=== PATIENT | male | born 1940 | race Caucasian/White ===

== ENCOUNTER 2023-01-28 08:54 | Outpatient (CLI) | payer MEDICARE, SELFPAY ==
--- NOTE | 2023-01-28 09:15 | USCV_ITS ---
Manuel Parsons Age: 82 Gender: M : 1940 Exam Date: 01/28/2023 09:18 Ordering Phys: Deanna Bansal MD Technologist: CT [place]am [place] [facility] [place]ication: murmur BP: 130 / 80 HR: 63 Rhythm: Sinus Technical Quality: Adequate MEASUREMENTS (Male / Female) Normal Values 2D ECHO LV Diastolic Diameter PLAX 4.5 cm 4.2 - 5.9 / 3.9 - 5.3 cm LV Systolic Diameter PLAX 1.9 cm IVS Diastolic Thickness 1.1 cm 0.6 - 1.0 / 0.6 - 0.9 cm IVS Systolic Thickness 1.6 cm LVPW Diastolic Thickness 1.4 cm 0.6 - 1.0 / 0.6 - 0.9 cm LVPW Systolic Thickness 1.6 cm LVOT Diameter 2.1 cm LV Ejection Fraction 2D Teich 87.8 % LV Ejection Fraction MOD 2C 67.7 % LV Ejection Fraction 2C AL 67.7 % LA Diameter 3.6 cm LA Width 3.5 cm LA Height 6.8 cm RA Width 4.9 cm RA Height 5.0 cm Aorta at Sinotubular Diameter 3.1 cm IVC Diameter 1.0 cm M-MODE MV E Point Septal Separation 0.6 cm DOPPLER AV Peak Velocity 195.0 cm/s LVOT Peak Velocity 189.0 cm/s AV Area Cont Eq vti 3.4 cm squared AV Area Cont Eq pk 3.3 cm squared MV Peak Velocity 138.0 cm/s MV Area PHT 2.9 cm squared Mitral E to A Ratio 0.8 MV E' Velocity 50.0 cm/s Mitral E to MV E' Ratio 14.6 Mitral E to LV E' Lateral Ratio 14.8 Mitral E to LV E' Septal Ratio 14.4 TR Peak Velocity 175.5 cm/s TR Peak Gradient 12.3 mmHg Right Atrial Pressure 3.0 mmHg Pulmonary Artery Systolic Pressu 15.3 mmHg PV Peak Velocity 105.0 cm/s RV Acceleration Time 0.2 s RV Ejection Time 0.4 s RV AcT/ET 0.5 FINDINGS Left Ventricle Normal left ventricular size and systolic function, EF 70 %. Mild left ventricular hypertrophy. Grade I/IV diastolic dysfunction (abnormal relaxation filling pattern), normal to mildly elevated filling pressures. Right Ventricle The right ventricle is normal in size and function. Right Atrium The right atrium is normal in size. Left Atrium Mildly increased left atrial size. Mitral Valve No gross abnormalities noted. Aortic Valve Thickened aortic valve. Tricuspid Valve Trace to mild tricuspid valve regurgitation. Pulmonic Valve Pulmonic valve not well visualized. Pericardium Normal pericardium without effusion. Aorta Normal ascending aorta dimension. IVC Normal inferior vena cava. CONCLUSIONS Normal left ventricular size and systolic function, EF 70 %. Mild left ventricular hypertrophy. Grade I/IV diastolic dysfunction (abnormal relaxation filling pattern), normal to mildly elevated filling pressures. Mildly increased left atrial size. Thickened aortic valve. Trace to mild tricuspid valve regurgitation. There is no pericardial effusion. No similar previous studies are available for comparison Dr Aguila Craig MD FAC (Electronically Signed) Final Date: 28 January 2023 18:26 S
== END 2023-01-28 08:55 | disposition home or self-care (01) ==
LOC: RAD 09:00
PROVIDERS: PCP Internal Medicine; Visit Provider Family Medicine
DX: R01.1 Cardiac murmur, unspecified (principal); I51.7 Cardiomegaly; I38 Endocarditis, valve unspecified; I35.8 Other nonrheumatic aortic valve disorders
CPT/HCPCS: 93306

== ENCOUNTER 2024-02-02 08:23 | Outpatient (CLI) | payer MEDICARE, SELFPAY ==
--- NOTE | 2024-02-02 08:33 | USCV_ITS ---
Manuel Parsons Age: 83 Gender: M : 1940 Exam Date: 02/02/2024 08:44 Ordering Phys: Deanna Bansal MD Technologist: MATTIE [place] [facility] [place]: Edema HISTORY: Lower extremity edema. PROCEDURES: Venous duplex imaging was performed in only the left lower extremity. The following venous structures were evaluated: common femoral vein, profunda vein, proximal portion of the greater saphenous vein, superficial femoral vein, and the popliteal vein. In addition, the posterior tibial and peroneal trunk were evaluated. Serial compression, augmentation maneuvers, and spectral Doppler flow evaluation were performed. FINDINGS: No evidence of DVT seen in any vessel visualized at this time. CONCLUSIONS No evidence of left lower extremity DVT. Andrew New MD (Electronically Signed) Final Date: 02 Feb 2024 10:47 S
== END 2024-02-02 08:24 | disposition home or self-care (01) ==
LOC: RAD 08:25
PROVIDERS: PCP Internal Medicine; Visit Provider Family Medicine
DX: R60.9 Edema, unspecified (principal); R60.0 Localized edema
CPT/HCPCS: 93971

== ENCOUNTER 2024-03-22 09:15 | Outpatient (CLI) | payer MEDICARE, SELFPAY ==
--- NOTE | 2024-03-22 09:07 | USCV_ITS ---
Parsons Manuel Age: 83 Gender: M : 1940 Exam Date: 03/22/2024 09:20 Ordering Phys: Deanna Bansal MD Technologist: ALEK [place] [facility] [place]ication: AORTIC VAVLE DISORDER BP: 137 / 81 HR: 68 Rhythm: Sinus Technical Quality: Adequate MEASUREMENTS (Male / Female) Normal Values 2D ECHO LV Diastolic Diameter PLAX 4.8 cm 4.2 - 5.9 / 3.9 - 5.3 cm IVS Diastolic Thickness 1.6 cm 0.6 - 1.0 / 0.6 - 0.9 cm IVS Systolic Thickness 1.9 cm LVPW Diastolic Thickness 2.3 cm 0.6 - 1.0 / 0.6 - 0.9 cm LVPW Systolic Thickness 2.1 cm LVOT Diameter 2.0 cm LV Ejection Fraction 2D Teich 62.9 % LV Ejection Fraction MOD 2C 62.9 % LV Ejection Fraction 2C AL 64.0 % LA Diameter 5.5 cm RA Systolic Volume 4C AL 37.5 ml RA Systolic Volume 4C MOD 35.2 ml LA Sys Volume AL 53.9 cm cubed LA Sys Volume Index AL 22.0 cm cubed/m squared Aorta at Sinotubular Diameter 2.5 cm M-MODE LA Ao Ratio MM 1.5 AV Cusp Separation MM 0.9 cm DOPPLER AV Peak Velocity 216.0 cm/s LVOT Peak Velocity 187.0 cm/s AV Area Cont Eq vti 2.6 cm squared AV Area Cont Eq pk 2.8 cm squared MV Peak Velocity 140.0 cm/s MV Area PHT 2.6 cm squared Mitral E to A Ratio 1.1 TR Peak Velocity 248.0 cm/s TR Peak Gradient 24.6 mmHg TR Mean Velocity 198.0 cm/s TR Mean Gradient 16.7 mmHg TR Velocity Time Integral 79.9 cm TV Peak E Velocity 77.0 cm/s Right Atrial Pressure 3.0 mmHg Pulmonary Artery Systolic Pressu 27.6 mmHg PV Peak Velocity 103.0 cm/s RV Ejection Time 0.3 s FINDINGS Left Ventricle Normal left ventricular size, systolic function and wall thickness, with no regional wall motion abnormalities. Normal left ventricular wall t function estimated at 60% . Grade I/IV diastolic dysfunction (abnormal relaxation filling pattern), normal to mildly elevated filling pressures. Right Ventricle The right ventricle is normal in size and function. Right Atrium The right atrium is normal in size. Left Atrium The left atrium is normal in size. Mitral Valve Structurally normal mitral valve without significant stenosis or prolapse. There is no mitral regurgitation. Aortic Valve Aortic valve sclerosis. Mild aortic valve stenosis. Mild aortic valve stenosis, mean gradient 11.8 mmHg, ALESSANDRO 2.6 cm squared. Trace aortic valve regurgitation. Tricuspid Valve Structurally normal tricuspid valve without significant stenosis mild regurgitation. Pulmonary artery systolic pressure is normal. Pulmonic Valve Structurally normal pulmonic valve without significant stenosis. There is no pulmonic regurgitation. Pericardium Normal pericardium without effusion. Aorta Normal ascending aorta dimension. IVC The inferior vena cava appears normal. CONCLUSIONS 1-Normal left ventricular size, systolic function and wall thickness, with no regional wall motion abnormalities. Normal left ventricular wall t function estimated at 60% . Grade I/IV diastolic dysfunction (abnormal relaxation filling pattern), normal to mildly elevated filling pressures. 2-Aortic valve sclerosis. Mild aortic valve stenosis. Mild aortic valve stenosis, mean gradient 11.8 mmHg, ALESSANDRO 2.6 cm squared. Trace aortic valve regurgitation. 3-There is no pericardial effusion. 4-Right atrial pressure is around 5 mm of mercury. Jacobo Smith MD (Electronically Signed) Final Date: 22 March 2024 21:04 S
== END 2024-03-22 09:16 | disposition home or self-care (01) ==
PROVIDERS: PCP Internal Medicine; Visit Provider Family Medicine
DX: I35.9 Nonrheumatic aortic valve disorder, unspecified (principal); I50.30 Unspecified diastolic (congestive) heart failure; I70.0 Atherosclerosis of aorta
CPT/HCPCS: 93306

== ENCOUNTER → 2024-11-05 08:45 | Outpatient (BNVA) | payer MEDICARE, SELFPAY | PROVIDERS: PCP Internal Medicine; Visit Provider Surgery | DX: K21.9 Gastro-esophageal reflux disease without esophagitis (principal); K59.04 Chronic idiopathic constipation; Z86.0100 Personal history of colon polyps, unspecified | CPT/HCPCS: 99204 ==

== ENCOUNTER 2024-11-14 08:10 | Day surgery (SDC) | payer MEDICARE, SELFPAY ==
[2024-11-14 08:50] VITALS: BP 127/81; PULSE 114; RESP 18; TEMP 36.6; O2SAT 100; BMI 26.2
[2024-11-14] MEDS: sodium chloride 0.9% 500 ML 15 ML IV (08:56)
--- NOTE | 2024-11-14 08:59 | ANES.PREANE2 ---
Pre-Anesthetic Assessment Height/Weight: Height 1.91 m Weight 95.254 kg Temp Pulse Resp BP Pulse Ox O2 Del Method 97.9 F 114 H 18 127/81 100 Room Air 11/14/24 08:50 11/14/24 08:50 11/14/24 08:50 11/14/24 08:50 11/14/24 08:50 11/14/24 08:50 Preop Diagnosis: anemia Operation Date: 11/14/24 09:15 Proposed Procedures p EGD 12759, 88040, G0121, K21.9, Z12.11(Not Applicable) - Hermann Hathaway DO s Colonoscopy(Not Applicable) - Hermann Hathaway DO Familial anesthetic complications: none Was Beta Saw taken within 24 hours: N/A Was Clonidine taken within 24 hours: N/A Last intake: Intake Last Liquid Date 11/13/24 Last Liquid Time 22:00 Last Solid Date 11/12/24 Last Solid Time 18:00 Social No alcohol and No tobacco Exam alert, oriented x 3, clear to auscultation bilaterally and regular rate & rhythm Airway Submandibular: within normal limits Cervical ROM: within normal limits Mallampati: Class III Dentition: full History/ROS No significant history except as noted and No significant complaints Pulmonary Asthma CV/HEM Anemia None reported Hepatic None reported GI Gastroesophageal Reflux Disease Metabolic Thyroid Disease Neuropsych None reported Anesthetic Plan ASA status: 3 Anesthesia: MAC Risk of > 500 ml blood loss (7ml/kg in children): No Medications/Allergies Home Medications ?Medication ?Instructions ?Recorded ?Confirmed ?Last Taken ?Type albuterol sulfate 90 mcg/actuation 1 puff inhalation QID 11/05/24 11/12/24 Unknown History aerosol inhaler ferrous sulfate [Iron (ferrous 325 mg PO DAILY 11/05/24 11/12/24 11/11/24 History sulfate)] levothyroxine 125 mcg tablet 125 mcg PO DAILY 11/05/24 11/12/24 11/12/24 History (Levo-T) pantoprazole 40 mg tablet,delayed 40 mg PO BID 6 weeks #84 tabs 11/05/24 11/12/24 11/12/24 Rx release (Protonix) polyethylene glycol 3350 17 17 g PO DAILY #510 grams 11/05/24 11/12/24 11/12/24 Rx gram/dose oral powder (Miralax) vitamins A,C,V-rlfj-vifvxr 1 tab PO DAILY 11/05/24 11/12/24 11/11/24 History [PreserVision AREDS] Allergies Allergy/AdvReac Type Severity Reaction Status Date / Time grass pollen Allergy Unknown Verified 11/12/24 08:39 house dust Allergy Unknown Verified 11/12/24 08:39 mold Allergy Unknown Verified 11/12/24 08:39 grass oil Allergy Unknown Uncoded 11/12/24 08:39 sycamore tree Allergy Unknown Uncoded 11/12/24 08:39 Current Medications Generic Name Dose Route Start Last Admin Trade Name Freq PRN Reason Stop Dose Admin Sodium Chloride 500 mls @ 15 mls/hr 11/14/24 08:18 11/14/24 08:56 Sodium Chloride 0.9% IV 11/15/24 08:17 15 mls/hr .Q24H PRN Administration COLONOSCOPY FLUIDS PFSH Anesthesia Medical History (Updated 11/05/24 @ 09:47 by Hermann Hathaway DO) History of colon polyps Hx of echocardiogram 03/22/2024 Surgical History (Updated 11/05/24 @ 09:47 by Hermann Hathaway DO) Hx laparoscopic cholecystectomy 06/07/2013 Hx of prostatectomy Social History Smoking and tobacco/nicotine status: never used tobacco/nicotine Data Anesthesia Cardiac Studies: Echocardiogram 03/22/24
--- NOTE | 2024-11-14 09:08 | W.PM.OPSUD ---
Surgery/Procedure H&P Update DATE OF PROCEDURE: November 14, 2024 DATE H&P PERFORMED: 11/05/24 H&P UPDATE INFORMATION: I have reviewed H&P completed within last 30 days, I have examined patient prior to procedure and No changes to prior documentation PREOP DIAGNOSIS: anemia PLANNED PROCEDURE: Operation Date: 11/14/24 09:15 Proposed Procedures p EGD 74297, 30749, G0121, K21.9, Z12.11(Not Applicable) - DO shawn Mckinnon Colonoscopy(Not Applicable) - Hermann Hathaway DO
[2024-11-14 09:35] VITALS: BP 122/65; PULSE 84; RESP 18; TEMP 36.2; O2SAT 100
[2024-11-14 09:40] VITALS: BP 123/72; PULSE 84; RESP 18; O2SAT 99
[2024-11-14 09:51] VITALS: BP 135/83; PULSE 82; RESP 18; O2SAT 98
--- NOTE | 2024-11-14 10:15 | ANE.PACU2 ---
Inpatient post-anesthesia follow up: Airway intact: Yes Vital signs: Temperature 97.2 F Pulse Rate 82 Respiratory Rate 18 Blood Pressure 135/83 Pulse Oximetry 98 Oxygen Delivery Me thod Room Air Oxygen Flow Rate Fraction of Inspir ed Oxygen Hydration adequate: Yes Nausea and vomiting: No Pain level: 1 Mental status: Baseline
== END 2024-11-14 10:15 | disposition home or self-care (01) ==
PROVIDERS: PCP Internal Medicine; Visit Provider Surgery
PROC: 0DJ08ZZ Inspection of Upper Intestinal Tract, Via Natural or Artificial Opening Endoscopic (ICD-10-PCS; principal; 2024-11-14 09:15)
PROC: 0DJD8ZZ Inspection of Lower Intestinal Tract, Via Natural or Artificial Opening Endoscopic (ICD-10-PCS; CPT 45378; 2024-11-14 09:15)
DX: Z12.11 Encounter for screening for malignant neoplasm of colon (principal); D12.3 Benign neoplasm of transverse colon; R10.84 Generalized abdominal pain; K21.9 Gastro-esophageal reflux disease without esophagitis; J45.909 Unspecified asthma, uncomplicated; D64.9 Anemia, unspecified; Z79.899 Other long term (current) drug therapy; Z79.890 Hormone replacement therapy; Z91.09 Other allergy status, other than to drugs and biological substances; Z86.0100 Personal history of colon polyps, unspecified; K44.9 Diaphragmatic hernia without obstruction or gangrene; K29.70 Gastritis, unspecified, without bleeding; K22.5 Diverticulum of esophagus, acquired; K59.04 Chronic idiopathic constipation; Z90.49 Acquired absence of other specified parts of digestive tract; Z85.46 Personal history of malignant neoplasm of prostate
CPT/HCPCS: 43239; 45385; 88305; J2704; J7040

== ENCOUNTER → 2024-11-26 08:12 | Outpatient (BNVA) | payer MEDICARE, SELFPAY | PROVIDERS: PCP Internal Medicine; Visit Provider Surgery | DX: Z09 Encounter for follow-up examination after completed treatment for conditions other than malignant neoplasm (principal); R03.0 Elevated blood-pressure reading, without diagnosis of hypertension; D64.9 Anemia, unspecified; K21.9 Gastro-esophageal reflux disease without esophagitis; K59.04 Chronic idiopathic constipation; Z86.0100 Personal history of colon polyps, unspecified; K22.5 Diverticulum of esophagus, acquired | CPT/HCPCS: 99214 ==

== ENCOUNTER 2024-11-27 10:42 | Outpatient (CLI) | payer MEDICARE, SELFPAY ==
[2024-11-27 11:13] LABS: Basophils % 0.2 %; Eosinophils # 0.1 10^3/uL (0.0-0.8); Eosinophils % 2.4 %; Lymphocytes # 1.2 10^3/uL (0.8-4.8); Lymphocytes % 23.6 %; Mean Corpuscular HGB Conc 30.9 g/dL (30-55); Mean Corpuscular Hemoglobin 30.1 pg (27-33); Mean Corpuscular Volume 97.3 fl (82-101); Mean Platelet Volume 9.4 fL (7.4-10.4); Monocytes # 0.4 10^3/uL (0.2-0.9); Monocytes % 7.5 %; Neutrophils # 3.32 10^3/uL (1.8-7.7); Neutrophils % 65.7 %; Nucleated Red Blood Cells % 0 %; Platelet Count 264 10^3/cmm (157-399); Red Blood Count 2.26 10^6/uL (3.85-5.65); Red Cell Distribution Width 15.4 % (12.1-15.1); White Blood Count 5.05 10^3/uL (3.29-11.43)
[2024-11-27 11:31] LABS: Ferritin 981 ng/mL (30-400); Iron 54 ug/dL (59-158); Percent Saturation 43.5 % (20-50); Total Iron Binding Capacity 124 mcg/dl; Unsaturated Iron Binding 70 ug/dL (112-347)
== END 2024-11-27 10:43 | disposition home or self-care (01) ==
PROVIDERS: PCP Internal Medicine; Visit Provider Surgery
DX: D64.9 Anemia, unspecified (principal)
CPT/HCPCS: 36415; 82728; 83540; 83550; 85025

== ENCOUNTER 2024-12-11 11:01 | Oncology outpatient (recurring) (ONCR) | payer MEDICARE, SELFPAY ==
[2024-12-11] VITALS (9 sets, daily range): BP systolic 111–151; BP diastolic 68–81; PULSE 78–99; RESP 17–18; TEMP 36.3–36.9; O2SAT 98–99
[2024-12-11 12:11] LABS: Eosinophils # 0.1 10^3/uL (0.0-0.8); Eosinophils % 1.6 %; Lymphocytes % 22.8 %; Mean Corpuscular HGB Conc 31.4 g/dL (30-55); Mean Corpuscular Hemoglobin 31.6 pg (27-33); Mean Corpuscular Volume 100.5 fl (82-101); Mean Platelet Volume 9.5 fL (7.4-10.4); Monocytes # 0.4 10^3/uL (0.2-0.9); Monocytes % 8.5 %; Neutrophils # 2.82 10^3/uL (1.8-7.7); Neutrophils % 66.2 %; Nucleated Red Blood Cells % 0 %; Platelet Count 240 10^3/cmm (157-399); Red Blood Count 2.06 10^6/uL (3.85-5.65); Red Cell Distribution Width 15.5 % (12.1-15.1); White Blood Count 4.26 10^3/uL (3.29-11.43)
[2024-12-11 12:24] LABS: Hematocrit 20.7 % (37-53)
[2024-12-11] MEDS: acetaminophen 500 mg Tablet 1000 MG PO (12:53)
[2024-12-11] MEDS: diphenhydrAMINE 25 mg Capsule PO (12:54)
== END 2024-12-31 23:59 | disposition home or self-care (01) ==
LOC: ONCMED 11:02
PROVIDERS: PCP Family Medicine; Visit Provider Family Medicine
DX: D64.9 Anemia, unspecified (principal)
CPT/HCPCS: 36415; 36430; 85025; 86850; 86900; 86920; J9999; P9016; P9040

== ENCOUNTER 2024-12-27 08:36 | Inpatient (IN) | payer MEDICARE, SELFPAY ==
[2024-12-27] VITALS (8 sets, daily range): BP systolic 126–134; BP diastolic 61–82; PULSE 83–106; RESP 16–18; TEMP 36.4–37.1; O2SAT 92–99; BMI 26.9; BMI 24.1
[2024-12-27 10:04] LABS: Basophils % 0.3 %; Eosinophils # 0.1 10^3/uL (0.0-0.8); Eosinophils % 3.4 %; Hematocrit 25.8 % (37-53); Lymphocytes % 26.8 %; Mean Corpuscular HGB Conc 30.6 g/dL (30-55); Mean Corpuscular Hemoglobin 29.4 pg (27-33); Mean Corpuscular Volume 95.9 fl (82-101); Mean Platelet Volume 9.5 fL (7.4-10.4); Monocytes # 0.4 10^3/uL (0.2-0.9); Monocytes % 9.5 %; Neutrophils # 2.25 10^3/uL (1.8-7.7); Neutrophils % 59.2 %; Nucleated Red Blood Cells % 0 %; Platelet Count 222 10^3/cmm (157-399); Red Blood Count 2.69 10^6/uL (3.85-5.65); Red Cell Distribution Width 15.6 % (12.1-15.1)
[2024-12-27 10:17] LABS: Alanine Aminotransferase 8 U/L (0-41); Albumin Level 2.4 g/dL (3.5-5.2); Alkaline Phosphatase 79 U/L (40-130); Anion Gap 15.8 (5-19); Aspartate Amino Transferase 10 U/L (0-40); Blood Urea Nitrogen 56 mg/dL (8-23); Calcium 8.9 mg/dL (8.5-10.5); Carbon Dioxide 22 mmol/L (22-29); Chloride 102 mmol/L (98-107); Creatinine Clr Calc Pharmacy 12.0146; Globulin 9.4 g/dL (1.3-4.6); Glucose 91 mg/dL (65-115); Magnesium 1.9 mg/dL (1.7-2.3); Osmolality Calculated 295 mOsm/kg (285-295); Potassium 4.8 mmol/L (3.5-5.1); Sodium 135 mmol/L (136-145); Total Bilirubin 0.9 mg/dL (0.15-1.2); Total Protein 11.8 g/dL (6.6-8.7)
--- NOTE | 2024-12-27 11:18 | ED_ITS ---
HPI - Recheck/Abnormal Lab/Rx 2 General: Chief Complaint: Recheck/Abnormal Lab/Rx Stated Complaint: referred by [facility]/abnormal Labs Time Seen by Provider: 12/27/24 08:43 History of Present Illness: 84-year-old male presents to the emergen cy room directed here by his primary care doctor due to acute kidney injury. He had lab work done his creatinine was up to. This was an acute change for him normal creatinine was around 1. He has had some anemia issues lately workup including EGD and colonoscopy has not shown cause. He is denies any vomiting or diarrhea. No hematemesis coffee-ground emesis. Related Data Home Medications ?Medication ?Instructions ?Recorded ?Confirmed albuterol sulfate 90 mcg/actuation 1 puff inhalation Q ID PRN 11/05/24 12/29/24 aerosol inhaler Shortness Of Breath levothyroxine 125 mcg tablet 125 mcg PO DAILY 11/05/24 12/29/24 (Levo-T) ferrous sulfate 325 mg (65 mg 325 mg PO DAILY 12/29/24 12/29/24 iron) tablet polyethylene glycol 3350 17 17 g PO DAILY PRN Constipa tion 12/29/24 12/29/24 gram/dose oral powder (Miralax) vit C 250 mg-vit E 90 mg-zinc 40 1 tab PO BID 12/29/24 12/29/24 mg-copper 1 [id number] capsule (PreserVision AREDS-2) Previous Rx's ?Medication ?Instructions ?Recorded pantoprazole 40 mg tablet,delayed 40 mg PO BID 6 weeks #84 tabs 11/05/24 release (Protonix) Allergies Allergy/AdvReac Type Severity Reaction Status Date / Time grass pollen Allergy Unknown Verified 11/12/24 08:39 house dust Allergy Unknown Verified 11/12/24 08:39 mold Allergy Unknown Verified 11/12/24 08:39 grass oil Allergy Unknown Uncoded 11/12/24 08:39 sycamore tree Allergy Unknown Uncoded 11/12/24 08:39 Review of Systems 2 Const: Denies: fever(s) or chills Card: Denies: chest pain Resp: Denies: dyspnea GI: Denies: abdominal pain : Denies: dysuria, urinary frequency or urinary urgency Musc: Denies: neck pain or back pain Skin/Breast: Denies: rash PFSH ED 2 PFSH: Medical History Anemia History of colon polyps Hx of echocardiogram 03/22/2024 Surgical History History of esophagogastroduodenoscopy (EGD) History of colonoscopy Hx laparoscopic cholecystectomy 06/07/2013 Hx of prostatectomy Social History (Updated 12/27/24 @ 14:25 by Darien Matias MD) Smoking and tobacco/nicotine status: never used tobacco/nicotine Alcohol intake: never Substance/Drug Use: never Household members: spouse Physical Exam 2 Const: GENERAL APPEARANCE: cooperative ORIENTATION/CONSCIOUSNESS: Yes awake, Yes oriented to person, Yes oriented to place and Yes oriented to time HENMT: COMMON NORMALS: normocephalic, atraumatic and hearing grossly normal bilaterally HEAD & SCALP: normocephalic and atraumatic Resp: COMMON NORMALS: normal respiratory effort, No retractions, No use of accessory muscles and clear to auscultation bilaterally AUSCULTATION: clear to auscultation bilaterally Cardio: COMMON NORMALS: regular rate, regular rhythm and No murmurs present (Cardio) RATE: regular rate RHYTHM: regular rhythm GI: COMMON NORMALS: Soft to palpation and No hepatosplenomegaly present A USCULTATION: Yes normoactive bowel sounds PALPATION: Yes Soft to palpation, No Tenderness to palpation present (GI), No Guarding due to palpation present (GI) and Yes No hepatosplenomegaly present Extremity: COMMON NORMALS: normal to inspection, capillary refill normal, no clubbing, cyanosis or edema, no calf tenderness and no pedal edema Neuro: SENSORIUM/ORIENTATION: Yes oriented to person, Yes oriented to place and Yes oriented to time Skin: COMMON NORMALS: no rashes or lesions noted GENERAL SKIN EXAM: no rashes or lesions noted Course 2 Vital Signs: Vital signs: Vital Signs Temperature 97.7 F 12/29/24 11:27 Pulse Rate 78 12/29/24 11:27 Respiratory Rate 16 12/29/24 11:27 Blood Pressure 127/76 12/29/24 11:27 Pulse Oximetry 95 12/29/24 11:27 Oxygen Delivery Me thod Room Air 12/29/24 11:27 MDM - Recheck/Abnormal Lab/Rx Medical Decision Making No abdominal discomfort or pain. Bladder scan did not show any urinary retention. Urine shows no sign of infection or blood. Discussed with hospitalist will admit for anemia and acute kidney injury Lab Data 12/29/24 09:53 12/29/24 05:09 Radiology Impressions Renal Ultrasound 12/28/24 08:08 IMPRESSION: Technically difficult study due to bowel gas. 1. No hydronephrosis in either kidney. Mild cortical atrophy. 2. Evidence of medical renal disease with echogenic kidneys bilaterally. 3. Bilateral ureteral jets visualized. Laboratory Results WBC 3.59 10^3/uL (3.29-11.43) 12/28/24 05:03 RBC 2.43 10^6/uL (3.85-5.65) L 12/28/24 05:03 Hgb 7.10 g/dL (11.27-16.99) L 12/28/24 05:03 Hct 23.3 % (37-53) L 12/28/24 05:03 MCV 95.9 fl (82-101) 12/28/24 05:03 MCH 29.2 pg (27-33) 12/28/24 05:03 MCHC 30.5 g/dL (30-55) 12/28/24 05:03 RDW 15.6 % (12.1-15.1) H 12/28/24 05:03 Plt Count 209 10^3/cmm (157-399) 12/28/24 05:03 MPV 10.1 fL (7.4-10.4) 12/28/24 05:03 Neut % (Auto) 53.2 % 12/28/24 05:03 Lymph % (Auto) 33.1 % 12/28/24 05:03 [place] % (Auto) 8.9 % 12/28/24 05:03 Eos % (Auto) 3.9 % 12/28/24 05:03 Baso % (Auto) 0.3 % 12/28/24 05:03 Reticulocyte % (Auto) 0.8 % (0.5-2.0) 12/27/24 09:40 Neut # (Auto) 1.91 10^3/uL (1.8-7.7) 12/28/24 05:03 Lymph # (Auto) 1.2 10^3/uL (0.8-4.8) 12/28/24 05:03 [place] # (Auto) 0.3 10^3/uL (0.2-0.9) 12/28/24 05:03 Eos # (Auto) 0.1 10^3/uL (0.0-0.8) 12/28/24 05:03 Baso # (Auto) 0.0 10^3/uL (0.0-0.1) 12/28/24 05:03 Nucleated RBC % (auto) 0 % 12/28/24 05:03 Nucleated RBCs # 0.0 /100WBC 12/28/24 05:03 Retic Production Index 0.51 12/27/24 09:40 Sodium 136 mmol/L (136-145) 12/28/24 05:03 Potassium 4.9 mmol/L (3.5-5.1) 12/28/24 05:03 Chloride 103 mmol/L (98-107) 12/28/24 05:03 Carbon Dioxide 23 mmol/L (22-29) 12/28/24 05:03 Anion Gap 14.9 (5-19) 12/28/24 05:03 BUN 57 mg/dL (8-23) H 12/28/24 05:03 Creatinine 5.6 mg/dL (0.7-1.2) H* 12/28/24 05:03 GFR Calculation Not Reportable 12/28/24 05:03 Glucose 85 mg/dL (65-115) 12/28/24 05:03 Calculated Osmolality 297 mOsm/kg (285-295) H 12/28/24 05:03 Calcium 8.4 mg/dL (8.5-10.5) L 12/28/24 05:03 Magnesium 1.9 mg/dL (1.7-2.3) 12/27/24 09:40 Total Bilirubin 0.9 mg/dL (0.15-1.2) 12/27/24 09:40 AST 10 U/L (0-40) 12/27/24 09:40 ALT 8 U/L (0-41) 12/27/24 09:40 Alkaline Phosphatase 79 U/L (40-130) 12/27/24 09:40 Creatine Kinase 25 U/L (39-308) L 12/27/24 09:40 Creatine Kinase Cancelled 12/27/24 09:40 Total Protein 11.8 g/dL (6.6-8.7) H 12/27/24 09:40 Albumin 2.4 g/dL (3.5-5.2) L 12/27/24 09:40 Globulin 9.4 g/dL (1.3-4.6) H 12/27/24 09:40 Vitamin B12 1013 pg/mL (232-1245) 12/27/24 09:40 Folate 10.0 ng/mL (4.5-32.2) 12/27/24 09:40 TSH 1.13 uIU/mL (0.27-4.20) 12/27/24 09:40 Urine Color Yellow (Yellow) 12/27/24 19:57 Urine Appearance Clear (CLEAR) 12/27/24 19:57 Urine pH 7.0 (5-7) 12/27/24 19:57 Ur Specific Yeso 1.013 (1.005-1.030) 12/27/24 19:57 Urine Protein 2+ (Negative) A 12/27/24 19:57 Urine Glucose (UA) Negative (Normal) 12/27/24 19:57 Urine Ketones Negative (Negative) 12/27/24 19:57 Urine Blood Trace (Negative) A 12/27/24 19:57 Urine Nitrate Negative (Negative) 12/27/24 19:57 Urine Bilirubin Negative (Negative) 12/27/24 19:57 Urine Urobilinogen 1.0 mg/dL (Negative) 12/27/24 19:57 Ur Leukocyte Esterase Negative (Negative) 12/27/24 19:57 Urine RBC 0-2 /hpf (0-2) 12/27/24 19:57 Urine WBC 0-5 /hpf (0-5) 12/27/24 19:57 Ur Squamous Epith Cells 0-5 /hpf (0-5) 12/27/24 19:57 Amorphous Sediment Not Reportable 12/27/24 19:57 Urine Bacteria None seen /hpf (NONE) 12/27/24 19:57 Hyaline Casts 1.65 /lpf 12/27/24 19:57 U Random Total Protein 439 mg/dL 12/27/24 19:57 Ur Random Sodium 100 mmol/L 12/27/24 19:57 Urine Creatinine 63 mg/dL (39-259) 12/27/24 19:57 Blood Type A Negative 12/27/24 11:48 Rho(D) Type Rh negative 12/27/24 11:48 Antibody Screen Negative 12/27/24 11:48 Crossmatch See Detail 12/27/24 11:48 No radiology studies performed this visit Discharge Plan Discharge Patient Disposition: Admitted As Inpatient Admit Provider: Darien Matias Clinical Impression: MAURO (acute kidney injury), Anemia Condition: Stable Coding Level of Care Code ED [employer] Bulbs for Venancio Downey
[2024-12-27] MEDS: sodium chloride 0.9% 1,000 ML 999 ML IV (12:03)
[2024-12-27] MEDS: sodium chloride 0.9% 1,000 ML 150 ML IV (13:43)
[2024-12-27 13:49] LABS: Creatine Phosphokinase 25 U/L (39-308)
--- NOTE | 2024-12-27 14:14 | PM.HP ---
Providers/Chief Complaint Admitting Physician: Darien Matias Primary Care Provider: Deanna Bansal MD Chief Complaint: referred by Nimisha/abnormal Labs History of Present Illness Mr. Parsons, an 84 yo gentleman has a history of anemia and was sent to the hospital by his PCP Dr. Boateng due to worsening kidney function. He is also noted to have anemia and previously underwent an EGD and colonoscopy, which revealed minor gastritis but no major findings. The patient recalls a significant kidney issue approximately 10-15 years ago following gallbladder removal. He has not been following up with a kidney specialist recently. The patient denies recent dehydration, diarrhea, or vomiting. He reports a persistent urinary issue, characterized by a weak stream and constant dribbling, which may be contributing to kidney dysfunction. The patient had prostate cancer and underwent prostate removal surgery around 9921-4486, leading to urinary leakage. He denies taking NSAIDs or experiencing muscle pain but mentions muscle mass loss. The patient has experienced black stools in the past, attributed to a laxative prescribed before a colonoscopy. He denies current black stools. The patient does not drink alcohol and has a history of brief smoking at age 18. He lives with his . The patient had swelling in one leg several months ago, which resolved, and thought it might be related to heart valve leakage, though it was deemed insignificant. Review of Systems Const: Denies: fever(s), chills, body aches or malaise ENMT: Denies: throat pain, oral sores or ear or mastoid pain Card: Denies: chest pain, edema, pre-syncope or dyspnea on exertion Resp: Denies: dyspnea, productive cough, change in phlegm color or hemoptysis GI: Denies: abdominal pain, nausea, vomiting, diarrhea, constipation, hematochezia or melena : Reports: difficulty urinating and urinary hesitancy; Denies: flank pain, dysuria or hematuria Musc: Denies: back pain, joint swelling or joint redness Skin/Breast: Denies: rash or new lesions Neuro: Denies: headache(s) or confusion Medications/Allergies Home Medications ?Medication ?Instructions ?Recorded ?Confirmed ?Last Taken ?Type albuterol sulfate 90 mcg/actuation 1 puff inhalation QID 11/05/24 11/26/24 Unknown History aerosol inhaler ferrous sulfate [Iron (ferrous 325 mg PO DAILY 11/05/24 11/26/24 11/11/24 History sulfate)] levothyroxine 125 mcg tablet 125 mcg PO DAILY 11/05/24 11/26/24 11/12/24 History (Levo-T) pantoprazole 40 mg tablet,delayed 40 mg PO BID 6 weeks #84 tabs 11/05/24 11/26/24 11/12/24 Rx release (Protonix) polyethylene glycol 3350 17 17 g PO DAILY #510 grams 11/05/24 11/26/24 11/12/24 Rx gram/dose oral powder (Miralax) vitamins A,C,R-jifg-fektrf 1 tab PO DAILY 11/05/24 11/26/24 11/11/24 History [PreserVision AREDS] Allergies Allergy/AdvReac Type Severity Reaction Status Date / Time grass pollen Allergy Unknown Verified 11/12/24 08:39 house dust Allergy Unknown Verified 11/12/24 08:39 mold Allergy Unknown Verified 11/12/24 08:39 grass oil Allergy Unknown Uncoded 11/12/24 08:39 sycamore tree Allergy Unknown Uncoded 11/12/24 08:39 PFSH Acute PFSH: Medical History Anemia History of colon polyps Hx of echocardiogram 03/22/2024 Surgical History History of esophagogastroduodenoscopy (EGD) History of colonoscopy Hx laparoscopic cholecystectomy 06/07/2013 Hx of prostatectomy Social History (Updated 12/27/24 @ 14:25 by Darien Matias MD) Smoking and tobacco/nicotine status: never used tobacco/nicotine Alcohol intake: never Substance/Drug Use: never Household members: spouse Vitals/I&O/Wt Last Vital Signs Temp 97.7 F 12/27/24 13:01 Pulse 86 12/27/24 13:01 Resp 16 12/27/24 13:01 BP 133/76 12/27/24 13:01 Pulse Ox 97 12/27/24 13:01 O2 Del Method Room Air 12/27/24 13:01 12/26/24 12/27/24 12/27/24 22:59 06:59 14:59 Intake Total 1000 / 1000 Balance 1000 / 1000 Weight last 48 hrs Weight 87.679 kg Weight 97.522 kg Physical Exam Const: COMMON NORMALS: patient oriented x3 and alert GENERAL APPEARANCE: cooperative ORIENTATION/CONSCIOUSNESS: Yes awake HENMT: COMMON NORMALS: oropharynx normal Neck/C-Spine: COMMON NORMALS: no JVD Resp: COMMON NORMALS: normal respiratory effort and clear to auscultation bilaterally AUSCULTATION: clear to auscultation bilaterally Cardio: COMMON NORMALS: no JVD, regular rhythm, S1 normal heart sound present, S2 normal heart sound present and No murmurs present (Cardio) RHYTHM: regular rhythm HEART SOUNDS: S1 normal heart sound present and S2 normal heart sound present GI: COMMON NORMALS: Normal to inspection, nondistended, normoactive bowel sounds present, Soft to palpation and non-tender PALPATION: Yes Soft to palpation Extremity: COMMON NORMALS: no joint enlargement and no pedal edema Neuro: COMMON NORMALS: patient oriented x3 and moves all extremities SENSORIUM/ORIENTATION: Yes alert Skin: COMMON NORMALS: no rashes or lesions noted GENERAL SKIN EXAM: no rashes or lesions noted Data 12/27/24 09:40 12/27/24 09:40 A&P Assessment and plan (1) MAURO (acute kidney injury): Acute kidney injury, BUN up to 56, creatinine 5.6. He denies any nausea vomiting or diarrhea. Denies dehydration. Does not take NSAIDs. Unclear cause. He does state history of protracted renal dysfunction which delayed his discharge after cholecystectomy about 10-15 years ago in [place] at [facility]. He had not followed up with nephrology since then, but his renal function has been monitored by his PCP. Acute kidney injury, possibly on chronic kidney disease. Reviewed vitals, CBC, CMP, ER provider note, discussed with ER provider. Noted BUN up to 56, creatinine 5.6. He reports urinary hesitancy, dribbling for a long time. Has had prostatectomy around [id number]. Does not take NSAIDs. Has not been hypotensive. No recent dehydrating illness. Requesting kidney and bladder ultrasound. Requesting CK. Appears he may be taking pantoprazole at home. CBC with tiny amount of eosinophils, 0.1. Will hold pantoprazole for now. Obtain UA, urine sodium, urine creatinine and protein. Discussed with group dynamics instructor, appreciate consultation. (2) Anemia: Reviewed hemoglobin, platelets, prior hemoglobin. Noted hemoglobin down to 7.9. Without outward bleeding, about a month ago had some dark stools, had investigation of anemia with EGD and colonoscopy at that time. With finding of mild gastritis. Reviewed iron studies, back in November not iron deficient. Denies recent dark stools. Check Hemoccult. Check TSH, B12, folic acid. Check reticulocyte. Possible anemia of chronic disease with renal dysfunction. Additionally assess as above. Plan History of prostatectomy Urinary hesitancy: Follow-up kidney and bladder ultrasound. PDMP PDMP Reviewed: Not Reviewed Attestations Medical Necessity Statement*: Place in observation for additional assessment management of MAURO in an elderly gentleman. and High MDM includes amount and/or complexity of data reviewed/ordered [ resulted lab(s)/test(s), ordered lab(s)/test(s) and other healthcare professional discussion] as documented Diagnoses MAURO (acute kidney injury) N17.9 Anemia D64.9
[2024-12-27] MEDS: enoxaparin 30 mg/0.3 mL Syringe SUBCUT (14:44)
[2024-12-27 15:02] LABS: Hematocrit 25.6 % (37-53); Retic Production Index 0.51; Reticulocyte % 0.8 % (0.5-2.0)
[2024-12-27 15:11] LABS: Thyroid Stimulating Hormone 1.13 uIU/mL (0.27-4.20); Vitamin B12 1013 pg/mL (232-1245)
[2024-12-27 20:05] LABS: Bilirubin Urine Negative (Negative); Blood Urine Trace (Negative); Glucose Urine UA Negative (Normal); Ketones Urine Negative (Negative); Leukocyte Esterase Urine Negative (Negative); Nitrate Urine Negative (Negative); Protein Urine 2+ (Negative); Specific Gravity, Urine 1.013 (1.005-1.030); Urine Appearance Clear (CLEAR); Urine Color Yellow (Yellow)
[2024-12-27 20:07] LABS: Add Urine Microscopic? YES; Bacteria Urine None Seen /hpf; Hyaline Casts Urine 1.65 /lpf; RBC Urine 0-2 /hpf (0-2); Squamous Epithelial Cell Urine 0-5 /hpf (0-5); WBC Urine 0-5 /hpf (0-5)
[2024-12-27 20:22] LABS: Urine Creatinine 63 mg/dL (39-259); Urine Random Sodium 100 mmol/L
[2024-12-27 20:37] LABS: Urine Protein Random 439 mg/dL
--- NOTE | 2024-12-27 21:28 | PM.CONSULT ---
Providers/Reason For Consult Consulting Physician/Specialty*: kommana/Nephrology Reason for Consult*: MAURO Attending Physician: Darien Matias Primary Care Provider: Deanna Bansal MD History of Present Illness History of Present Illness Manuel Parsons is a 84 year old male 84-year-old male with hypothyroidism, asthma, chronic anemia was sent by PCP office due to abnormal labs. Patient was noted to have abnormal kidney function and was sent to the ER for further evaluation. Patient denies any nausea vomiting diarrhea. Denies any NSAID use. Initial lab data significant for hemoglobin of 7.9, creatinine is 5.6. No baseline labs available. Review of Systems Narrative: Negative Medications/Allergies Home Medications ?Medication ?Instructions ?Recorded ?Confirmed ?Last Taken ?Type albuterol sulfate 90 mcg/actuation 1 puff inhalation QID 11/05/24 11/26/24 Unknown History aerosol inhaler ferrous sulfate [Iron (ferrous 325 mg PO DAILY 11/05/24 11/26/24 11/11/24 History sulfate)] levothyroxine 125 mcg tablet 125 mcg PO DAILY 11/05/24 11/26/24 11/12/24 History (Levo-T) pantoprazole 40 mg tablet,delayed 40 mg PO BID 6 weeks #84 tabs 11/05/24 11/26/24 11/12/24 Rx release (Protonix) polyethylene glycol 3350 17 17 g PO DAILY #510 grams 11/05/24 11/26/24 11/12/24 Rx gram/dose oral powder (Miralax) vitamins A,C,D-qans-tpqmps 1 tab PO DAILY 11/05/24 11/26/24 11/11/24 History [PreserVision AREDS] Allergies Allergy/AdvReac Type Severity Reaction Status Date / Time grass pollen Allergy Unknown Verified 11/12/24 08:39 house dust Allergy Unknown Verified 11/12/24 08:39 mold Allergy Unknown Verified 11/12/24 08:39 grass oil Allergy Unknown Uncoded 11/12/24 08:39 sycamore tree Allergy Unknown Uncoded 11/12/24 08:39 Current Medications Generic Name Dose Route Start Last Admin Trade Name Freq PRN Reason Stop Dose Admin Enoxaparin Sodium 30 mg 12/27/24 14:30 12/27/24 14:44 Enoxaparin 30 Mg/0.3 Ml Syringe SUBCUT 30 mg Q24H CHUNG Administration PFSH Acute PFSH: Medical History Anemia History of colon polyps Hx of echocardiogram 03/22/2024 Surgical History History of esophagogastroduodenoscopy (EGD) History of colonoscopy Hx laparoscopic cholecystectomy 06/07/2013 Hx of prostatectomy Social History (Updated 12/27/24 @ 14:25 by Darien Matias MD) Smoking and tobacco/nicotine status: never used tobacco/nicotine Alcohol intake: never Substance/Drug Use: never Household members: spouse Vitals/I&O/Wt Last Vital Signs Temp 97.6 F 12/27/24 20:56 Pulse 100 12/27/24 20:56 Resp 17 12/27/24 20:56 BP 128/80 12/27/24 20:56 Pulse Ox 92 12/27/24 20:56 O2 Del Method Room Air 12/27/24 16:37 12/27/24 12/27/24 12/27/24 06:59 14:59 22:59 Intake Total 1000 / 1000 1000 / 2000 Balance 1000 / 1000 1000 / 2000 Weight last 48 hrs Weight 87.679 kg Weight 97.522 kg Physical Exam Narrative: Patient is awake, alert, no distress PERRLA S1-S2 regular rate and rhythm per report Lungs clear per report Abdomen soft nontender No pedal edema Data 12/27/24 09:40 12/27/24 09:40 A&P Assessment and plan (1) MAURO (acute kidney injury): Plan 1. Acute kidney injury: Baseline creatinine not available, suspect patient has underlying CKD. Likely prerenal etiology in the setting of severe anemia. UA with 2+ protein, no microscopic hematuria. Renal ultrasound pending. Urine electrolytes ordered, agree with holding PPI for now, check urine eosinophils -Obtain records from PCP office -No acute indication for dialysis -Continue IV hydration 2. Severe anemia, status posttransfusion 3. Hyponatremia: Mild , monitor 4. Hypothyroidism, on levothyroxine Patient evaluated using audiovisual cart. Time spent 40 minutes. PDMP PDMP Reviewed: Not Reviewed Coding Level of Care Code Acute Code for Chg Fwd Diagnoses MAURO (acute kidney injury) N17.9
[2024-12-28 00:16] VITALS: BP 128/74; PULSE 98; RESP 16; TEMP 36.5; O2SAT 93
[2024-12-28 03:52] VITALS: BP 126/72; PULSE 96; RESP 17; TEMP 36.5; O2SAT 93
[2024-12-28 06:06] LABS: Basophils % 0.3 %; Eosinophils # 0.1 10^3/uL (0.0-0.8); Eosinophils % 3.9 %; Hematocrit 23.3 % (37-53); Lymphocytes # 1.2 10^3/uL (0.8-4.8); Lymphocytes % 33.1 %; Mean Corpuscular HGB Conc 30.5 g/dL (30-55); Mean Corpuscular Hemoglobin 29.2 pg (27-33); Mean Corpuscular Volume 95.9 fl (82-101); Mean Platelet Volume 10.1 fL (7.4-10.4); Monocytes # 0.3 10^3/uL (0.2-0.9); Monocytes % 8.9 %; Neutrophils # 1.91 10^3/uL (1.8-7.7); Neutrophils % 53.2 %; Nucleated Red Blood Cells % 0 %; Platelet Count 209 10^3/cmm (157-399); Red Blood Count 2.43 10^6/uL (3.85-5.65); Red Cell Distribution Width 15.6 % (12.1-15.1); White Blood Count 3.59 10^3/uL (3.29-11.43)
[2024-12-28 06:26] LABS: Anion Gap 14.9 (5-19); Blood Urea Nitrogen 57 mg/dL (8-23); Calcium 8.4 mg/dL (8.5-10.5); Carbon Dioxide 23 mmol/L (22-29); Chloride 103 mmol/L (98-107); Glucose 85 mg/dL (65-115); Osmolality Calculated 297 mOsm/kg (285-295); Potassium 4.9 mmol/L (3.5-5.1); Sodium 136 mmol/L (136-145)
[2024-12-28 08:00] VITALS: BP 130/75; PULSE 76; TEMP 36.5; O2SAT 97
--- NOTE | 2024-12-28 08:08 | US_ITS ---
WS: [id number] ULTRASOUND RENAL TECHNIQUE: Ultrasound examination of both kidneys. CLINICAL INFORMATION: cr COMPARISON: None. FINDINGS: Bilateral ureteral jets are visualized. RIGHT: Echogenicity: Increased Mild cortical atrophy Hydronephrosis: None. Perinephric fluid: None. Right kidney measures: 9.6 cm x 5.8 cm x 4.7 cm. LEFT: Echogenicity: Increased Mild cortical atrophy Hydronephrosis: None. Perinephric fluid: None. Left kidney measures: 9.6 cm x 5.2 cm x 5.5 cm. Normal visualized aorta. US/US renal BI* [id number] IMPRESSION: Technically difficult study due to bowel gas. 1. No hydronephrosis in either kidney. Mild cortical atrophy. 2. Evidence of medical renal disease with echogenic kidneys bilaterally. 3. Bilateral ureteral jets visualized.
--- NOTE | 2024-12-28 08:39 | P.PN_ITS ---
Subjective 2 Subjective: no new complaints Medications: Reviewed: Yes Vitals/I&O/Wt Last Vital Signs Temp 97.7 F 12/28/24 08:00 Pulse 76 12/28/24 08:00 Resp 17 12/28/24 03:52 BP 130/75 12/28/24 08:00 Pulse Ox 97 12/28/24 08:00 O2 Del Method Room Air 12/28/24 08:00 12/27/24 12/28/24 12/28/24 22:59 06:59 14:59 Intake Total 1240 / 2240 Output Total 300 / 300 Balance 1240 / 2240 -300 / 1940 Weight last 48 hrs Weight 87.543 kg Weight 87.679 kg Weight 97.522 kg Physical Exam 2 Narrative: Patient is awake, alert, no distress PERRLA S1-S2 regular rate and rhythm per report Lungs clear per report Abdomen soft nontender No pedal edema Data 12/29/24 05:09 12/29/24 05:09 A&P Assessment and plan (1) MAURO (acute kidney injury): Plan 1. Acute kidney injury: Baseline creatinine not available, suspect patient has underlying CKD. Likely prerenal etiology in the setting of severe anemia. UA with 2+ protein, no microscopic hematuria. Renal ultrasound pending. Urine electrolytes ordered, agree with holding PPI for now, check urine eosinophils -Obtain records from PCP office -No acute indication for dialysis -Continue IV hydration 2. Severe anemia, status posttransfusion 3. Hyponatremia: Mild , monitor 4. Hypothyroidism, on levothyroxine Patient evaluated using audiovisual cart. Time spent 40 minutes. PDMP PDMP Reviewed: Not Reviewed Attestations 2 Medical Necessity Statement*: per frantx Coding Level of Care Code Acute Code for Chg Fwd Diagnoses MAURO (acute kidney injury) N17.9
[2024-12-28 12:00] VITALS: BP 119/68; PULSE 82; TEMP 36.7; O2SAT 95
[2024-12-28] MEDS: enoxaparin 30 mg/0.3 mL Syringe SUBCUT (15:41)
[2024-12-28 16:00] VITALS: BP 132/73; PULSE 86; TEMP 36.7; O2SAT 97
--- NOTE | 2024-12-28 19:39 | P.PN_ITS ---
Subjective 2 Subjective: He is doing about the same today. Denies any changes. Not for bleeding. So far no bowel movement. Vitals/I&O/Wt Last Vital Signs Temp 98.0 F 12/28/24 16:00 Pulse 86 12/28/24 16:00 Resp 17 12/28/24 03:52 BP 132/73 12/28/24 16:00 Pulse Ox 97 12/28/24 16:00 O2 Del Method Room Air 12/28/24 16:00 12/28/24 12/28/24 12/28/24 06:59 14:59 22:59 Intake Total 120 / 120 Output Total 300 / 300 Balance -300 / 1940 120 / 120 Weight last 48 hrs Weight 87.543 kg Weight 87.679 kg Weight 97.522 kg Physical Exam 2 Const: COMMON NORMALS: patient oriented x3 and alert GENERAL APPEARANCE: c ooperative ORIENTATION/CONSCIOUSNESS: Yes awake HENMT: COMMON NORMALS: oropharynx normal Neck/C-Spine: COMMON NORMALS: no JVD Resp: COMMON NORMALS: normal respiratory effort and clear to auscultation bilaterally AUSCULTATION: clear to auscultation bilaterally Cardio: COMMON NORMALS: no JVD, regular rhythm, S1 normal heart sound present, S2 normal heart sound present and No murmurs present (Cardio) RHYTHM: regular rhythm HEART SOUNDS: S1 normal heart sound present and S2 normal heart sound present GI: COMMON NORMALS: Normal to inspection, nondistended, normoactive bowel sounds present, Soft to palpation and non-tender PALPATION: Yes Soft to palpation Extremity: COMMON NORMALS: no joint enlargement and no pedal edema Neuro: COMMON NORMALS: patient oriented x3 and moves all extremities S ENSORIUM/ORIENTATION: Yes alert Skin: COMMON NORMALS: no rashes or lesions noted GENERAL SKIN EXAM: no rashes or lesions noted Data 12/28/24 05:03 12/28/24 05:03 A&P Assessment and plan (1) MAURO (acute kidney injury): Reviewed BUN, creatinine, so far without improvement despite fluid challenge. Her prostate kidney ultrasound. Reviewed nephrology note. Discussed with nursing, supportive employment case manager. Acute kidney injury, BUN up to 56, creatinine 5.6. He denies any nausea vomiting or diarrhea. Denies dehydration. Does not take NSAIDs. Unclear cause. He does state history of protracted renal dysfunction which delayed his discharge after cholecystectomy about 10-15 years ago in [place] at [facility]. He had not followed up with nephrology since then, but his renal function has been monitored by his PCP. Acute kidney injury, possibly on chronic kidney disease. Reviewed vitals, CBC, CMP, ER provider note, discussed with ER provider. Noted BUN up to 56, creatinine 5.6. He reports urinary hesitancy, dribbling for a long time. Has had prostatectomy around [id number]. Does not take NSAIDs. Has not been hypotensive. No recent dehydrating illness. Requesting kidney and bladder ultrasound. Requesting CK. Appears he may be taking pantoprazole at home. CBC with tiny amount of eosinophils, 0.1. Will hold pantoprazole for now. Obtain UA, urine sodium, urine creatinine and protein. Discussed with ornamental metal fabricator apprentice, appreciate consultation. (2) Anemia: Reviewed hemoglobin, platelets. Hemoglobin with slight further decline to 7.1 after IV hydration. Pending Hemoccult. Reviewed TSH, B12, folic acid, normal. Requested records from PCPs office. Repeat CBC. Reviewed hemoglobin, platelets, prior hemoglobin. Noted hemoglobin down to 7.9. Without outward bleeding, about a month ago had some dark stools, had investigation of anemia with EGD and colonoscopy at that time. With finding of mild gastritis. Reviewed iron studies, back in November not iron deficient. Denies recent dark stools. Possible anemia of chronic disease with renal dysfunction. Additionally assess as above. Plan History of prostatectomy Urinary hesitancy: Follow-up kidney and bladder ultrasound. PDMP PDMP Reviewed: Not Reviewed Attestations 2 Medical Necessity Statement*: Admission over 2 midnights anticipated for assessment management of acute kidney injury, anemia. Diagnoses MAURO (acute kidney injury) N17.9 Anemia D64.9
[2024-12-28 20:00] VITALS: BP 127/69; PULSE 83; RESP 18; TEMP 36.7; O2SAT 95
[2024-12-29] VITALS (13 sets, daily range): BP systolic 115–140; BP diastolic 63–78; PULSE 71–88; RESP 16–18; TEMP 36.2–36.7; O2SAT 92–97
[2024-12-29 05:28] LABS: Basophils % 0.3 %; Eosinophils # 0.1 10^3/uL (0.0-0.8); Eosinophils % 3.8 %; Lymphocytes # 1.2 10^3/uL (0.8-4.8); Lymphocytes % 34.1 %; Mean Corpuscular HGB Conc 31.4 g/dL (30-55); Mean Corpuscular Hemoglobin 29.9 pg (27-33); Mean Platelet Volume 9.6 fL (7.4-10.4); Monocytes # 0.4 10^3/uL (0.2-0.9); Monocytes % 11.8 %; Neutrophils # 1.67 10^3/uL (1.8-7.7); Neutrophils % 49.1 %; Nucleated Red Blood Cells % 0 %; Platelet Count 200 10^3/cmm (157-399); Red Blood Count 2.01 10^6/uL (3.85-5.65); Red Cell Distribution Width 15.3 % (12.1-15.1)
[2024-12-29 05:31] LABS: Hematocrit 19.1 % (37-53)
[2024-12-29 05:45] LABS: Anion Gap 12.9 (5-19); Blood Urea Nitrogen 61 mg/dL (8-23); Calcium 8.2 mg/dL (8.5-10.5); Carbon Dioxide 23 mmol/L (22-29); Chloride 102 mmol/L (98-107); Creatinine Clr Calc Pharmacy 11.9127; Glucose 88 mg/dL (65-115); Osmolality Calculated 293 mOsm/kg (285-295); Potassium 4.9 mmol/L (3.5-5.1); Sodium 133 mmol/L (136-145)
[2024-12-29 10:03] LABS: Basophils % 0.3 %; Eosinophils # 0.1 10^3/uL (0.0-0.8); Eosinophils % 3.8 %; Hematocrit 24.1 % (37-53); Lymphocytes % 30.6 %; Mean Corpuscular HGB Conc 31.5 g/dL (30-55); Mean Corpuscular Hemoglobin 29.2 pg (27-33); Mean Corpuscular Volume 92.7 fl (82-101); Mean Platelet Volume 9.3 fL (7.4-10.4); Monocytes # 0.3 10^3/uL (0.2-0.9); Monocytes % 10.8 %; Neutrophils # 1.68 10^3/uL (1.8-7.7); Neutrophils % 53.5 %; Nucleated Red Blood Cells % 0 %; Platelet Count 191 10^3/cmm (157-399); Red Cell Distribution Width 15.6 % (12.1-15.1); White Blood Count 3.14 10^3/uL (3.29-11.43)
[2024-12-29] MEDS: sodium chloride 0.9% 1,000 ML 50 ML IV (10:40)
--- NOTE | 2024-12-29 12:10 | PC.CHAP ---
Pastoral Care Encounter/Spiritual Assessment Type of Contact [X] Declined cut off saw grader visit [] Patient/Family/Request visit [] Outpatient visit [] Follow-up visit [] Physician referral [] Code/Alert [X] Routine visit [] Staff referral [] Actively dying [] Patient sleeping [] Family support [] [] Out of room [] Palliative care [] [] Receiving care in room [] Pre-surgical visit [] Trauma [] Long length of stay [] ICU visit [] Other: By Relational/Emotional Strength [] Patient feels connected with others/family/visitors/staff [] Distress [] Loneliness/isolation [] Abandonment Spirituality of Patient [] Person of Fannie [] Attends Scientology of their Fannie [] Believes in Prayer [] Reads Bible or Sikh materials [] There are Spiritual issues to be addressed Reprographics Technician Interventions [] Prayer [] Active listening [] Non-anxious presence [] Spiritual/emotional support [] Crisis/trauma care [] Spiritual counseling [] Bereavement support [] Provided bereavement packet [] Provided Bible/devotional materials [] Provided toy/stuffed animal, coloring book to patient or family member [] Provided Communion [] Anointing/[place] [] Salvation [] Completed spiritual assessment [] Other: Impact on Illness or Injury [] Angry [] Fearful [] Anxious [] Often cries [] Exhaustion [] Unable to work [] Unable to attend taoist [] Unable to walk/stand [] Unable to read [] Unable to drive [] Unable to eat/drink [] Unable to sleep [] Unable to be with family [] Patient intubated [] Other: Summary Time spent with patient
--- NOTE | 2024-12-29 13:58 | P.PN_ITS ---
Subjective 2 Subjective: no new c/o Medications: Reviewed: Yes Vitals/I&O/Wt Last Vital Signs Temp 97.7 F 12/29/24 11:27 Pulse 78 12/29/24 11:27 Resp 16 12/29/24 11:27 BP 127/76 12/29/24 11:27 Pulse Ox 95 12/29/24 11:27 O2 Del Method Room Air 12/29/24 11:27 12/28/24 12/29/24 12/29/24 22:59 06:59 14:59 Intake Total 240 / 360 0 / 360 1070 / 1070 Balance 240 / 360 0 / 360 1070 / 1070 Weight last 48 hrs Weight 87.679 kg Weight 87.543 kg Physical Exam 2 Narrative: Patient is awake, alert, no distress PERRLA S1-S2 regular rate and rhythm per report Lungs clear per report Abdomen soft nontender No pedal edema Data 12/29/24 09:53 12/29/24 05:09 A&P Assessment and plan (1) MAURO (acute kidney injury): Plan 1. Acute kidney injury: Baseline creatinine not available, suspect patient has underlying CKD. Likely prerenal etiology in the setting of severe anemia. UA with 2+ protein, no microscopic hematuria. Renal ultrasound pending. Urine electrolytes ordered, agree with holding PPI for now, check urine eosinophils -Obtain records from PCP office -No acute indication for dialysis -Continue IV hydration - cr slightly better 2. Severe anemia, status posttransfusion 3. Hyponatremia: Mild , monitor 4. Hypothyroidism, on levothyroxine Patient evaluated using audiovisual cart. Time spent 40 minutes. PDMP PDMP Reviewed: Not Reviewed Attestations 2 Medical Necessity Statement*: per [facility] Coding Level of Care Code Acute Code for Chg Fwd Diagnoses MAURO (acute kidney injury) N17.9
--- NOTE | 2024-12-29 14:51 | P.PN_ITS ---
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 cleaner, and it took months for his kidney function to return back to normal, denies any blood black stools, hemoglobin 6 this morning, no lightheadedness or dizziness, received 1 unit PRBC Vitals/I&O/Wt Last Vital Signs Temp 97.7 F 12/29/24 11:27 Pulse 78 12/29/24 11:27 Resp 16 12/29/24 11:27 BP 127/76 12/29/24 11:27 Pulse Ox 95 12/29/24 11:27 O2 Del Method Room Air 12/29/24 11:27 12/28/24 12/29/24 12/29/24 22:59 06:59 14:59 Intake Total 240 / 360 0 / 360 1070 / 1070 Balance 240 / 360 0 / 360 1070 / 1070 Weight last 48 hrs Weight 87.679 kg Weight 87.543 kg Physical Exam 2 Const: COMMON NORMALS: no acute distress and patient oriented x3 Resp: COMMON NORMALS: normal respiratory effort, No retractions, No use of accessory muscles and clear to auscultation bilaterally AUSCULTATION: clear to auscultation bilaterally Cardio: COMMON NORMALS: regular rate, regular rhythm, S1 normal heart sound present and S2 normal heart sound present RATE: regular rate RHYTHM: r egular rhythm HEART SOUNDS: S1 normal heart sound present and S2 normal heart sound present GI: COMMON NORMALS: Normal to inspection, nondistended, normoactive bowel sounds present and non-tender Extremity: COMMON NORMALS: no pedal edema Neuro: COMMON NORMALS: patient oriented x3 Psych: COMMON NORMALS: mental status grossly normal Data 12/29/24 09:53 12/29/24 05:09 A&P Assessment and plan (1) MAURO (acute kidney injury): -Renal ultrasound US/US renal BI* [id number] IMPRESSION: Technically difficult study due to bowel gas. 1. No hydronephrosis in either kidney. Mild cortical atrophy. 2. Evidence of medical renal disease with echogenic kidneys bilaterally. 3. Bilateral ureteral jets visualized. -Possibly chronic kidney disease Plan -IV fluids -Nephrology consultation (2) Anemia: -Hemoglobin 6, requiring 1 unit PRBC -History of anemia, history of recent EGD and colonoscopy, findings of mild gastritis, polyp -Monitor hemoglobin closely Plan History of prostatectomy = PDMP PDMP Reviewed: Not Reviewed Attestations 2 Medical Necessity Statement*: Patient requires hospitalization for MAURO, anemia Diagnoses MAURO (acute kidney injury) N17.9 Anemia D64.9
[2024-12-29 15:29] LABS: Erythrocyte Sedimentation Rate 32 mm/hr (0-10)
[2024-12-29 17:35] LABS: Alanine Aminotransferase 8 U/L (0-41); Albumin Level 2.2 g/dL (3.5-5.2); Alkaline Phosphatase 73 U/L (40-130); Aspartate Amino Transferase 11 U/L (0-40); Blood Urea Nitrogen 61 mg/dL (8-23); Calcium 8.2 mg/dL (8.5-10.5); Carbon Dioxide 22 mmol/L (22-29); Chloride 101 mmol/L (98-107); Creatinine Clr Calc Pharmacy 12.8657; Globulin 7.8 g/dL (1.3-4.6); Glucose 90 mg/dL (65-115); Osmolality Calculated 295 mOsm/kg (285-295); Sodium 134 mmol/L (136-145); Total Bilirubin 0.5 mg/dL (0.15-1.2)
[2024-12-30] VITALS (7 sets, daily range): BP systolic 112–148; BP diastolic 73–84; PULSE 75–97; RESP 16–19; TEMP 36.3–36.8; O2SAT 93–95
[2024-12-30] MEDS: sodium chloride 0.9% 1,000 ML 50 ML IV (05:31)
[2024-12-30 05:59] LABS: Basophils % 0.3 %; Eosinophils # 0.1 10^3/uL (0.0-0.8); Eosinophils % 3.6 %; Hematocrit 24.5 % (37-53); Lymphocytes # 1.1 10^3/uL (0.8-4.8); Lymphocytes % 29.6 %; Mean Corpuscular HGB Conc 31.4 g/dL (30-55); Mean Corpuscular Hemoglobin 29.4 pg (27-33); Mean Corpuscular Volume 93.5 fl (82-101); Mean Platelet Volume 9.8 fL (7.4-10.4); Monocytes # 0.4 10^3/uL (0.2-0.9); Monocytes % 9.7 %; Neutrophils # 2.01 10^3/uL (1.8-7.7); Neutrophils % 55.7 %; Nucleated Red Blood Cells % 0 %; Platelet Count 197 10^3/cmm (157-399); Red Blood Count 2.62 10^6/uL (3.85-5.65); Red Cell Distribution Width 15.6 % (12.1-15.1); White Blood Count 3.61 10^3/uL (3.29-11.43)
[2024-12-30 08:57] LABS: Alanine Aminotransferase 8 U/L (0-41); Albumin Level 2.3 g/dL (3.5-5.2); Alkaline Phosphatase 74 U/L (40-130); Anion Gap 13.8 (5-19); Aspartate Amino Transferase 11 U/L (0-40); Blood Urea Nitrogen 57 mg/dL (8-23); Calcium 8.4 mg/dL (8.5-10.5); Carbon Dioxide 22 mmol/L (22-29); Chloride 103 mmol/L (98-107); Creatinine Clr Calc Pharmacy 12.1401; Globulin 7.9 g/dL (1.3-4.6); Glucose 84 mg/dL (65-115); Osmolality Calculated 293 mOsm/kg (285-295); Potassium 4.8 mmol/L (3.5-5.1); Sodium 134 mmol/L (136-145); Total Bilirubin 0.5 mg/dL (0.15-1.2); Total Protein 10.2 g/dL (6.6-8.7)
--- NOTE | 2024-12-30 09:24 | P.PN_ITS ---
Subjective 2 Subjective: no new complaints Medications: Reviewed: Yes Vitals/I&O/Wt Last Vital Signs Temp 97.4 F L 12/30/24 07:46 Pulse 75 12/30/24 07:46 Resp 16 12/30/24 07:46 BP 112/77 12/30/24 07:46 Pulse Ox 95 12/30/24 07:46 O2 Del Method Room Air 12/30/24 07:46 12/29/24 12/30/24 12/30/24 22:59 06:59 14:59 Intake Total 480 / 1550 942.5 / 2492.5 480 / 480 Balance 480 / 1550 942.5 / 2492.5 480 / 480 Weight last 48 hrs Weight 87.725 kg Weight 87.679 kg Physical Exam 2 Narrative: Patient is awake, alert, no distress PERRLA S1-S2 regular rate and rhythm per report Lungs clear per report Abdomen soft nontender No pedal edema Data 12/30/24 05:17 12/30/24 05:17 A&P Assessment and plan (1) MAURO (acute kidney injury): Plan 1. Acute kidney injury: Baseline creatinine not available, suspect patient has underlying CKD. Likely prerenal etiology in the setting of severe anemia. UA with 2+ protein, no microscopic hematuria. Renal ultrasound pending. Urine electrolytes ordered, agree with holding PPI for now, check urine eosinophils -Obtain records from PCP office -No acute indication for dialysis, if renal fxn worsens , will discuss dialysis vs conservative measures -Continue IV hydration - cr stable 2. Severe anemia, status posttransfusion 3. Hyponatremia: Mild , monitor 4. Hypothyroidism, on levothyroxine Patient evaluated using audiovisual cart. Time spent 40 minutes. PDMP PDMP Reviewed: Not Reviewed Attestations 2 Medical Necessity Statement*: per medicine Coding Level of Care Code Acute Code for Chg Fwd Diagnoses MAURO (acute kidney injury) N17.9
--- NOTE | 2024-12-30 12:36 | P.PN_ITS ---
Subjective 2 Subjective: Patient was seen this morning, he is alert oriented x 3, following all commands, discussed his creatinine being 5.3, he tells me he has good urine output, hemoglobin 7.7 he does report 1 episode of dark sticky stool, Vitals/I&O/Wt Last Vital Signs Temp 97.5 F L 12/30/24 11:42 Pulse 84 12/30/24 11:42 Resp 16 12/30/24 11:42 BP 115/73 12/30/24 11:42 Pulse Ox 94 12/30/24 11:42 O2 Del Method Room Air 12/30/24 11:42 12/29/24 12/30/24 12/30/24 22:59 06:59 14:59 Intake Total 480 / 1550 942.5 / 2492.5 480 / 480 Balance 480 / 1550 942.5 / 2492.5 480 / 480 Weight last 48 hrs Weight 87.725 kg Weight 87.679 kg Physical Exam 2 Const: COMMON NORMALS: no acute distress and patient oriented x3 Resp: COMMON NORMALS: normal respiratory effort, No retractions, No use of accessory muscles and clear to auscultation bilaterally AUSCULTATION: clear to auscultation bilaterally Cardio: COMMON NORMALS: regular rate, regular rhythm, S1 normal heart sound present and S2 normal heart sound present RATE: regular rate RHYTHM: r egular rhythm HEART SOUNDS: S1 normal heart sound present and S2 normal heart sound present GI: COMMON NORMALS: Normal to inspection, nondistended, normoactive bowel sounds present and non-tender Extremity: COMMON NORMALS: no pedal edema Neuro: COMMON NORMALS: patient oriented x3 Psych: COMMON NORMALS: mental status grossly normal Data 12/30/24 05:17 12/30/24 05:17 A&P Assessment and plan (1) MAURO (acute kidney injury): -Renal ultrasound US/US renal BI* [id number] IMPRESSION: Technically difficult study due to bowel gas. 1. No hydronephrosis in either kidney. Mild cortical atrophy. 2. Evidence of medical renal disease with echogenic kidneys bilaterally. 3. Bilateral ureteral jets visualized. -Possibly chronic kidney disease Plan -IV fluids -Nephrology consultation (2) Anemia: -Hemoglobin 6, requiring 1 unit PRBC -Hemoglobin now 7.7 recheck this afternoon -History of anemia, history of recent EGD and colonoscopy, findings of mild gastritis, polyp -Off Protonix due to concerns for MAURO -Add Carafate -Ordered lymphoma, leukemia panel -Hemoccult stool -Monitor hemoglobin closely Plan Continue IV fluids, recheck CBC and BMP this afternoon, will have patient ambulate PDMP PDMP Reviewed: Not Reviewed Attestations 2 Medical Necessity Statement*: Patient requires hospitalization for MAURO, anemia Diagnoses MAURO (acute kidney injury) N17.9 Anemia D64.9
[2024-12-30] MEDS: sucralfate 1 gm/10 mL Oral Liq UDC PO ×2 (15:10→20:47)
[2024-12-30 16:34] LABS: Basophils % 0.3 %; Eosinophils # 0.1 10^3/uL (0.0-0.8); Eosinophils % 2.6 %; Hematocrit 22.5 % (37-53); Lymphocytes # 1.1 10^3/uL (0.8-4.8); Lymphocytes % 27.3 %; Mean Corpuscular Volume 93.8 fl (82-101); Mean Platelet Volume 9.7 fL (7.4-10.4); Monocytes # 0.4 10^3/uL (0.2-0.9); Monocytes % 9.4 %; Neutrophils # 2.33 10^3/uL (1.8-7.7); Neutrophils % 59.4 %; Nucleated Red Blood Cells % 0 %; Platelet Count 177 10^3/cmm (157-399); Red Cell Distribution Width 15.3 % (12.1-15.1); White Blood Count 3.92 10^3/uL (3.29-11.43)
[2024-12-30 16:52] LABS: Anion Gap 13.9 (5-19); Blood Urea Nitrogen 62 mg/dL (8-23); Calcium 8.1 mg/dL (8.5-10.5); Carbon Dioxide 22 mmol/L (22-29); Chloride 99 mmol/L (98-107); Creatinine Clr Calc Pharmacy 13.6899; Glucose 98 mg/dL (65-115); Osmolality Calculated 288 mOsm/kg (285-295); Potassium 4.9 mmol/L (3.5-5.1); Sodium 130 mmol/L (136-145)
[2024-12-30] MEDS: sodium chloride 0.9% 1,000 ML 75 ML IV (20:49)
[2024-12-31] MEDS: sucralfate 1 gm/10 mL Oral Liq UDC PO ×4 (02:58→20:42)
[2024-12-31 04:00] VITALS: BP 124/77; PULSE 79; RESP 19; TEMP 36.4; O2SAT 96
[2024-12-31 04:04] LABS: Eosinophils # 0.1 10^3/uL (0.0-0.8); Eosinophils % 3.1 %; Hematocrit 23.9 % (37-53); Lymphocytes % 26.9 %; Mean Corpuscular HGB Conc 31.4 g/dL (30-55); Mean Corpuscular Hemoglobin 30.2 pg (27-33); Mean Corpuscular Volume 96.4 fl (82-101); Mean Platelet Volume 9.7 fL (7.4-10.4); Monocytes # 0.4 10^3/uL (0.2-0.9); Monocytes % 10.7 %; Neutrophils # 2.24 10^3/uL (1.8-7.7); Neutrophils % 58.5 %; Nucleated Red Blood Cells % 0 %; Platelet Count 167 10^3/cmm (157-399); Red Blood Count 2.48 10^6/uL (3.85-5.65); Red Cell Distribution Width 15.4 % (12.1-15.1); White Blood Count 3.83 10^3/uL (3.29-11.43)
[2024-12-31 04:25] LABS: Alanine Aminotransferase 9 U/L (0-41); Albumin Level 2.2 g/dL (3.5-5.2); Alkaline Phosphatase 71 U/L (40-130); Anion Gap 14.9 (5-19); Aspartate Amino Transferase 11 U/L (0-40); Blood Urea Nitrogen 56 mg/dL (8-23); Calcium 8.2 mg/dL (8.5-10.5); Carbon Dioxide 21 mmol/L (22-29); Chloride 103 mmol/L (98-107); Creatinine Clr Calc Pharmacy 12.9583; Globulin 7.5 g/dL (1.3-4.6); Glucose 91 mg/dL (65-115); Osmolality Calculated 293 mOsm/kg (285-295); Potassium 4.9 mmol/L (3.5-5.1); Sodium 134 mmol/L (136-145); Total Bilirubin 0.4 mg/dL (0.15-1.2); Total Protein 9.7 g/dL (6.6-8.7)
[2024-12-31 07:33] VITALS: BP 131/72; PULSE 73; RESP 17; TEMP 36.4; O2SAT 96
[2024-12-31] MEDS: famotidine 20 mg/2 mL INJ IVP ×2 (08:53→20:42)
[2024-12-31] MEDS: sodium chloride 0.9% 1,000 ML 75 ML IV ×2 (09:59→23:35)
--- NOTE | 2024-12-31 10:48 | P.PN_ITS ---
Subjective 2 Subjective: no new complaints Medications: Reviewed: Yes Vitals/I&O/Wt Last Vital Signs Temp 97.5 F L 12/31/24 07:33 Pulse 73 12/31/24 07:33 Resp 17 12/31/24 07:33 BP 131/72 12/31/24 07:33 Pulse Ox 96 12/31/24 07:33 O2 Del Method Room Air 12/31/24 07:33 12/30/24 12/31/24 12/31/24 22:59 06:59 14:59 Intake Total 1215.833 / 2200.000 1223.5 / 1223.5 Balance 1215.833 / 2200.000 1223.5 / 1223.5 Weight last 48 hrs Weight 89.222 kg Weight 87.725 kg Physical Exam 2 Narrative: Patient is awake, alert, no distress PERRLA S1-S2 regular rate and rhythm per report Lungs clear per report Abdomen soft nontender No pedal edema Data 12/31/24 03:25 12/31/24 03:25 Micro: Microbiology 12/29/24 17:25 Occult Blood (FIT) - Final Stool - Stool Aspirate 12/30/24 17:25 Occult Blood (FIT) - Final Stool Routine Collection A&P Assessment and plan (1) MAURO (acute kidney injury): Plan 1. Acute kidney injury: Baseline creatinine not available, suspect patient has underlying CKD. Likely prerenal etiology in the setting of severe anemia. UA with 2+ protein, no microscopic hematuria. Renal ultrasound pending. Urine electrolytes ordered, agree with holding PPI for now, check urine eosinophils -Obtain records from PCP office -No acute indication for dialysis, if renal fxn worsens , will discuss dialysis vs conservative measures -Continue IV hydration, Cr stable 2. Severe anemia, status posttransfusion 3. Hyponatremia: Mild , monitor 4. Hypothyroidism, on levothyroxine Patient evaluated using audiovisual cart. Time spent 40 minutes. PDMP PDMP Reviewed: Not Reviewed Attestations 2 Medical Necessity Statement*: per [facility] Coding Level of Care Code Acute Code for Chg Fwd Diagnoses MAURO (acute kidney injury) N17.9
[2024-12-31 11:40] VITALS: BP 131/70; PULSE 74; RESP 16; TEMP 36.5; O2SAT 96
[2024-12-31 13:45] LABS: CENTROMERE B ANTIBODY <1.0 NEG AI (<1.0 NEG); JO-1 ANTIBODY <1.0 NEG AI (<1.0 NEG); RNP ANTIBODY <1.0 NEG AI (<1.0 NEG); SCL-70 ANTIBODY <1.0 NEG AI (<1.0 NEG); SJOGREN'S ANTIBODY (SS-A) <1.0 NEG AI (<1.0 NEG); SM ANTIBODY <1.0 NEG AI (<1.0 NEG); SS-B <1.0 NEG AI (<1.0 NEG)
[2024-12-31 14:43] LABS: Basophils % 0.3 %; Eosinophils # 0.1 10^3/uL (0.0-0.8); Eosinophils % 2.8 %; Hematocrit 24.7 % (37-53); Lymphocytes # 1.1 10^3/uL (0.8-4.8); Lymphocytes % 26.8 %; Mean Corpuscular HGB Conc 31.2 g/dL (30-55); Mean Corpuscular Hemoglobin 29.5 pg (27-33); Mean Corpuscular Volume 94.6 fl (82-101); Mean Platelet Volume 9.4 fL (7.4-10.4); Monocytes # 0.4 10^3/uL (0.2-0.9); Monocytes % 9.9 %; Neutrophils # 2.33 10^3/uL (1.8-7.7); Neutrophils % 59.4 %; Nucleated Red Blood Cells % 0 %; Platelet Count 177 10^3/cmm (157-399); Red Blood Count 2.61 10^6/uL (3.85-5.65); Red Cell Distribution Width 15.3 % (12.1-15.1); White Blood Count 3.92 10^3/uL (3.29-11.43)
[2024-12-31 15:54] LABS: COMPLEMENT COMPONENT C3C 95 mg/dL; COMPLEMENT COMPONENT C4C 13 mg/dL; COMPLEMENT, TOTAL (CH50) >60 U/mL (31-60)
[2024-12-31 15:58] VITALS: BP 135/75; PULSE 75; RESP 16; TEMP 36.5; O2SAT 90
--- NOTE | 2024-12-31 16:41 | P.PN_ITS ---
Subjective 2 Subjective: Patient was seen this morning, he is alert awake, following all commands, no acute events overnight, he is Hemoccult stool was positive yesterday, but denies any bloody or black stools yesterday or this morning, no lightheadedness, dizziness, patient's is at bedside we did detailed discussion with her about patient's acute renal failure, acute anemia, Vitals/I&O/Wt Last Vital Signs Temp 97.7 F 12/31/24 15:58 Pulse 75 12/31/24 15:58 Resp 16 12/31/24 15:58 BP 135/75 12/31/24 15:58 Pulse Ox 90 12/31/24 15:58 O2 Del Method Room Air 12/31/24 15:58 12/31/24 12/31/24 12/31/24 06:59 14:59 22:59 Intake Total 1459.5 / 1459.5 Balance 1459.5 / 1459.5 Weight last 48 hrs Weight 89.222 kg Weight 87.725 kg Physical Exam 2 Const: COMMON NORMALS: no acute distress and patient oriented x3 Resp: COMMON NORMALS: normal respiratory effort, No retractions, No use of accessory muscles and clear to auscultation bilaterally AUSCULTATION: clear to auscultation bilaterally Cardio: COMMON NORMALS: regular rate, regular rhythm, S1 normal heart sound present and S2 normal heart sound present RATE: regular rate RHYTHM: r egular rhythm HEART SOUNDS: S1 normal heart sound present and S2 normal heart sound present GI: COMMON NORMALS: Normal to inspection, nondistended, normoactive bowel sounds present and non-tender Extremity: COMMON NORMALS: no pedal edema Neuro: COMMON NORMALS: patient oriented x3 Psych: COMMON NORMALS: mental status grossly normal Data 12/31/24 14:30 12/31/24 03:25 Micro: Microbiology 12/29/24 17:25 Occult Blood (FIT) - Final Stool - Stool Aspirate 12/30/24 17:25 Occult Blood (FIT) - Final Stool Routine Collection A&P Assessment and plan (1) MAURO (acute kidney injury): -Renal ultrasound US/US renal BI* [id number] IMPRESSION: Technically difficult study due to bowel gas. 1. No hydronephrosis in either kidney. Mild cortical atrophy. 2. Evidence of medical renal disease with echogenic kidneys bilaterally. 3. Bilateral ureteral jets visualized. -Possibly chronic kidney disease -Potentially adverse reaction to pantoprazole? As this is the only new medication patient has been on -Continues to put out a good amount of urine -No significant electrolyte abnormalities Plan -IV fluids -Nephrology consultation (2) Anemia: -Hemoglobin 6, requiring 1 unit PRBC -Hemoglobin now 7.7 -History of anemia, history of recent EGD and colonoscopy, findings of mild gastritis, polyp -Off Protonix due to concerns for MAURO -Add Carafate, Carafate -Ordered lymphoma, leukemia panel, LDH, reticulocyte count -Hemoccult stool positive -Monitor hemoglobin closely Plan Continue IV fluids, recheck CBC and BMP this afternoon, will have patient ambulate PDMP PDMP Reviewed: Not Reviewed Attestations 2 Medical Necessity Statement*: Patient requires hospitalization for acute renal failure, acute anemia Diagnoses MAURO (acute kidney injury) N17.9 Anemia D64.9
[2024-12-31 17:06] LABS: LAB Peripheral Smear Sent for Review
[2024-12-31 17:08] LABS: Lactate Dehydrogenase 116 U/L (135-225)
[2024-12-31 20:00] VITALS: BP 125/72; PULSE 87; RESP 18; TEMP 36.7; O2SAT 94
[2025-01-01 00:25] VITALS: BP 131/75; PULSE 74; RESP 18; TEMP 36.8; O2SAT 98
[2025-01-01] MEDS: sucralfate 1 gm/10 mL Oral Liq UDC PO ×2 (03:30→09:14)
[2025-01-01 04:48] VITALS: BP 128/78; PULSE 79; RESP 18; TEMP 36.7; O2SAT 97
[2025-01-01 05:32] LABS: Basophils % 0.4 %; Eosinophils # 0.1 10^3/uL (0.0-0.8); Eosinophils % 2.9 %; Hematocrit 25.9 % (37-53); Lymphocytes # 1.6 10^3/uL (0.8-4.8); Lymphocytes % 33.4 %; Mean Corpuscular HGB Conc 31.7 g/dL (30-55); Mean Corpuscular Hemoglobin 29.9 pg (27-33); Mean Corpuscular Volume 94.5 fl (82-101); Mean Platelet Volume 9.6 fL (7.4-10.4); Monocytes # 0.4 10^3/uL (0.2-0.9); Monocytes % 8.6 %; Neutrophils # 2.63 10^3/uL (1.8-7.7); Neutrophils % 53.5 %; Nucleated Red Blood Cells % 0 %; Platelet Count 210 10^3/cmm (157-399); Red Blood Count 2.74 10^6/uL (3.85-5.65); Red Cell Distribution Width 15.5 % (12.1-15.1); White Blood Count 4.91 10^3/uL (3.29-11.43)
[2025-01-01 05:52] LABS: Alanine Aminotransferase 9 U/L (0-41); Albumin Level 2.5 g/dL (3.5-5.2); Alkaline Phosphatase 78 U/L (40-130); Anion Gap 13.1 (5-19); Aspartate Amino Transferase 13 U/L (0-40); Blood Urea Nitrogen 59 mg/dL (8-23); Calcium 8.6 mg/dL (8.5-10.5); Carbon Dioxide 22 mmol/L (22-29); Chloride 103 mmol/L (98-107); Creatinine Clr Calc Pharmacy 13.2228; Globulin 8.5 g/dL (1.3-4.6); Glucose 83 mg/dL (65-115); Osmolality Calculated 292 mOsm/kg (285-295); Potassium 5.1 mmol/L (3.5-5.1); Sodium 133 mmol/L (136-145); Total Bilirubin 0.5 mg/dL (0.15-1.2)
--- NOTE | 2025-01-01 06:50 | P.PN_ITS ---
Subjective 2 Subjective: no new c/o Medications: Reviewed: Yes Vitals/I&O/Wt Last Vital Signs Temp 97.5 F L 01/01/25 15:07 Pulse 78 01/01/25 15:07 Resp 17 01/01/25 15:07 BP 148/73 01/01/25 15:07 Pulse Ox 95 01/01/25 15:07 O2 Del Method Room Air 01/01/25 11:19 Physical Exam 2 Narrative: Patient is awake, alert, no distress PERRLA S1-S2 regular rate and rhythm per report Lungs clear per report Abdomen soft nontender No pedal edema Data 01/01/25 04:57 01/01/25 04:57 A&P Assessment and plan (1) MAURO (acute kidney injury): Plan 1. Acute kidney injury: Baseline creatinine not available, suspect patient has underlying CKD. Likely prerenal etiology in the setting of severe anemia. UA with 2+ protein, no microscopic hematuria. Renal ultrasound pending. Urine electrolytes ordered, agree with holding PPI for now, check urine eosinophils -Obtain records from PCP office -No acute indication for dialysis, if renal fxn worsens , will discuss dialysis vs conservative measures -Continue IV hydration, Cr stable 2. Severe anemia, status posttransfusion 3. Hyponatremia: Mild , monitor 4. Hypothyroidism, on levothyroxine Patient evaluated using audiovisual cart. Time spent 40 minutes. PDMP PDMP Reviewed: Not Reviewed Attestations 2 Medical Necessity Statement*: per franil Coding Level of Care Code Acute Code for Chg Fwd Diagnoses MAURO (acute kidney injury) N17.9
[2025-01-01 07:39] VITALS: BP 129/72; PULSE 65; RESP 17; TEMP 36.5; O2SAT 96
[2025-01-01] MEDS: famotidine 20 mg/2 mL INJ IVP (09:14)
[2025-01-01 11:19] VITALS: BP 148/73; PULSE 78; RESP 17; TEMP 36.4; O2SAT 95
[2025-01-01 12:36] LABS: Leukemia Profile (BBPL) See Report
--- NOTE | 2025-01-01 13:42 | PM.DCS ---
Discharge Providers Date of Admission: 12/28/24 10:19 Date of Discharge: January 01, 2025 Attending Provider at Admission: Darien Matias Attending Provider at Discharge: Maurice Mijares MD Primary Care Provider: Deanna Bansal MD Diagnoses at Discharge Discharge Diagnosis (1) MAURO (acute kidney injury): Status: Acute (2) Anemia: Status: Acute Reason for Visit Reason for Visit: referred by Nimisha/abnormal Labs Hospital Course Hospital Course Mr. Parsons, an 84 yo gentleman has a history of anemia and was sent to the hospital by his PCP Dr. Boateng due to worsening kidney function. He is also noted to have anemia and previously underwent an EGD and colonoscopy, which revealed minor gastritis but no major findings. The patient recalls a significant kidney issue approximately 10-15 years ago following gallbladder removal. He has not been following up with a kidney specialist recently. The patient denies recent dehydration, diarrhea, or vomiting. He reports a persistent urinary issue, characterized by a weak stream and constant dribbling, which may be contributing to kidney dysfunction. The patient had prostate cancer and underwent prostate removal surgery around [id number], leading to urinary leakage. He denies taking NSAIDs or experiencing muscle pain but mentions muscle mass loss. The patient has experienced black stools in the past, attributed to a laxative prescribed before a colonoscopy. He denies current black stools. The patient does not drink alcohol and has a history of brief smoking at age 18. He lives with his . The patient had swelling in one leg several months ago, which resolved, and thought it might be related to heart valve leakage, though it was deemed insignificant. This is a 84-year-old male, who presents to [facility] for acute kidney injury, no history of CKD, nephrology was consulted, received a broad workup, suspect patient has underlying CKD, possible adverse reaction to pantoprazole? Nonetheless patient was monitored as inpatient, no significant evidence of fluid overload, no evidence of hemodynamic compromise, no significant electrolyte abnormalities. Overall creatinine has sluggishly improved to 4.8, he continues to have robust urine output, patient is on room air, relatively asymptomatic, ambulatory. Will be discharged with instructions as below, follow-up with primary care provider weekly for BMPs, monitor electrolytes, follow-up with [facility] within a week For his anemia, acute on chronic, history of recent EGD colonoscopy findings of mild gastritis, did require 1 unit PRBC during his hospitalization, managed on Carafate, Pepcid, did have 1 episode of black tarry stool that was Hemoccult positive. However no hemodynamic compromise, hemoglobin has improved to 8.2. Will be discharged on Carafate, Protonix, with a follow-up with primary care provider as outpatient for weekly CBCs. Follow-up with general surgery in 2 weeks for consideration of repeat EGD. Patient was advised if he develops any bloody or black stools to go to emergency room, avoid NSAIDs. - Please have your primary care provider check your kidney function on a weekly basis -The hope is that your kidney function should slowly improve over time, but this might be your chronic kidney function -No significant electrolyte and maladies sodium is 133, bicarb 22, potassium 5.1, BUN 59, magnesium 1.9 -Your creatinine fluctuates between 4.8-5.5 -As long as you continue to put a good amount of urine out, you should continue to gradually improve -If you stop urinating, have flank pain, start developing swelling these are emergency signs go to the emergency room -Please consume at least 2 to 3 L of fluid a day -You do have a risk of developing heart failure, so if you start developing swelling of her legs, swelling of your abdomen is cut down your fluid intake to about 2 L of fluid a day -Please follow-up with [facility], for consideration of kidney biopsy -For your acute on chronic anemia, please stop taking pantoprazole -Take Pepcid twice daily, with Carafate -If you develop bloody or black stools, the emergency room -Please have your primary care provider recheck your hemoglobin on a weekly basis, hemoglobin discharge 8.2 -If your hemoglobin drops below 7 you might require blood transfusion -Please see general surgery in 2 weeks for consideration of EGD Physical Exam Const: COMMON NORMALS: no acute distress and patient oriented x3 Resp: COMMON NORMALS: normal respiratory effort, No retractions, No use of accessory muscles and clear to auscultation bilaterally AUSCULTATION: clear to auscultation bilaterally Cardio: COMMON NORMALS: regular rate, regular rhythm, S1 normal heart sound present and S2 normal heart sound present RATE: regular rate RHYTHM: regular rhythm HEART SOUNDS: S1 normal heart sound present and S2 normal heart sound present GI: COMMON NORMALS: Normal to inspection, nondistended, normoactive bowel sounds present and non-tender Extremity: COMMON NORMALS: no pedal edema Neuro: COMMON NORMALS: patient oriented x3 Psych: COMMON NORMALS: mental status grossly normal Discharge Data Studies Completed and Pending Completed Studies During Hospitalization Category Date Time Status US renal BI* [id number] Routine Ultrasound 12/28/24 08:08 Completed Pending at discharge Category Date Time Status RAYNA Profile Rheumatology Stat Lab 12/29/24 15:10 Results Complete Blood Count w/Auto AM LABS Lab 01/02/25 04:00 Ordered Comprehensive Metabolic Panel AM LABS Lab 01/02/25 04:00 Ordered Radiology Impressions Renal Ultrasound 12/28/24 08:08 IMPRESSION: Technically difficult study due to bowel gas. 1. No hydronephrosis in either kidney. Mild cortical atrophy. 2. Evidence of medical renal disease with echogenic kidneys bilaterally. 3. Bilateral ureteral jets visualized. Laboratory Results WBC 4.91 10^3/uL (3.29-11.43) 01/01/25 04:57 RBC 2.74 10^6/uL (3.85-5.65) L 01/01/25 04:57 Hgb 8.20 g/dL (11.27-16.99) L 01/01/25 04:57 Hct 25.9 % (37-53) L 01/01/25 04:57 MCV 94.5 fl (82-101) 01/01/25 04:57 MCH 29.9 pg (27-33) 01/01/25 04:57 MCHC 31.7 g/dL (30-55) 01/01/25 04:57 RDW 15.5 % (12.1-15.1) H 01/01/25 04:57 Plt Count 210 10^3/cmm (157-399) 01/01/25 04:57 MPV 9.6 fL (7.4-10.4) 01/01/25 04:57 Neut % (Auto) 53.5 % 01/01/25 04:57 Lymph % (Auto) 33.4 % 01/01/25 04:57 [place] % (Auto) 8.6 % 01/01/25 04:57 Eos % (Auto) 2.9 % 01/01/25 04:57 Baso % (Auto) 0.4 % 01/01/25 04:57 Reticulocyte % (Auto) 0.8 % (0.5-2.0) 12/27/24 09:40 Neut # (Auto) 2.63 10^3/uL (1.8-7.7) 01/01/25 04:57 Lymph # (Auto) 1.6 10^3/uL (0.8-4.8) 01/01/25 04:57 [place] # (Auto) 0.4 10^3/uL (0.2-0.9) 01/01/25 04:57 Eos # (Auto) 0.1 10^3/uL (0.0-0.8) 01/01/25 04:57 Baso # (Auto) 0.0 10^3/uL (0.0-0.1) 01/01/25 04:57 Nucleated RBC % (auto) 0 % 01/01/25 04:57 Nucleated RBCs # 0.0 /100WBC 01/01/25 04:57 Peripher Smr Path Cons Sent for review 12/31/24 14:30 ESR 32 mm/hr (0-10) H 12/29/24 15:10 Retic Production Index 0.51 12/27/24 09:40 Haptoglobin 156.0 mg/L (30-200) 12/31/24 03:25 Sodium 133 mmol/L (136-145) L 01/01/25 04:57 Potassium 5.1 mmol/L (3.5-5.1) 01/01/25 04:57 Chloride 103 mmol/L (98-107) 01/01/25 04:57 Carbon Dioxide 22 mmol/L (22-29) 01/01/25 04:57 Anion Gap 13.1 (5-19) 01/01/25 04:57 BUN 59 mg/dL (8-23) H 01/01/25 04:57 Creatinine 4.9 mg/dL (0.7-1.2) H 01/01/25 04:57 GFR Calculation Not Reportable 01/01/25 04:57 Glucose 83 mg/dL (65-115) 01/01/25 04:57 Calculated Osmolality 292 mOsm/kg (285-295) 01/01/25 04:57 Calcium 8.6 mg/dL (8.5-10.5) 01/01/25 04:57 Magnesium 1.9 mg/dL (1.7-2.3) 12/27/24 09:40 Total Bilirubin 0.5 mg/dL (0.15-1.2) 01/01/25 04:57 AST 13 U/L (0-40) 01/01/25 04:57 ALT 9 U/L (0-41) 01/01/25 04:57 Alkaline Phosphatase 78 U/L (40-130) 01/01/25 04:57 Lactate Dehydrogenase 116 U/L (135-225) L 12/31/24 03:25 Creatine Kinase 25 U/L (39-308) L 12/27/24 09:40 Creatine Kinase Cancelled 12/27/24 09:40 Total Protein 11.0 g/dL (6.6-8.7) H 01/01/25 04:57 Albumin 2.5 g/dL (3.5-5.2) L 01/01/25 04:57 Globulin 8.5 g/dL (1.3-4.6) H 01/01/25 04:57 Vitamin B12 1013 pg/mL (232-1245) 12/27/24 09:40 Folate 10.0 ng/mL (4.5-32.2) 12/27/24 09:40 TSH 1.13 uIU/mL (0.27-4.20) 12/27/24 09:40 Urine Color Yellow (Yellow) 12/27/24 19:57 Urine Appearance Clear (CLEAR) 12/27/24 19:57 Urine pH 7.0 (5-7) 12/27/24 19:57 Ur Specific [place] 1.013 (1.005-1.030) 12/27/24 19:57 Urine Protein 2+ (Negative) A 12/27/24 19:57 Urine Glucose (UA) Negative (Normal) 12/27/24 19:57 Urine Ketones Negative (Negative) 12/27/24 19:57 Urine Blood Trace (Negative) A 12/27/24 19:57 Urine Nitrate Negative (Negative) 12/27/24 19:57 Urine Bilirubin Negative (Negative) 12/27/24 19:57 Urine Urobilinogen 1.0 mg/dL (Negative) 12/27/24 19:57 Ur Leukocyte Esterase Negative (Negative) 12/27/24 19:57 Urine RBC 0-2 /hpf (0-2) 12/27/24 19:57 Urine WBC 0-5 /hpf (0-5) 12/27/24 19:57 Ur Squamous Epith Cells 0-5 /hpf (0-5) 12/27/24 19:57 Amorphous Sediment Not Reportable 12/27/24 19:57 Urine Bacteria None seen /hpf (NONE) 12/27/24 19:57 Hyaline Casts 1.65 /lpf 12/27/24 19:57 U Random Total Protein 439 mg/dL 12/27/24 19:57 Ur Random Sodium 100 mmol/L 12/27/24 19:57 Urine Creatinine 63 mg/dL (39-259) 12/27/24 19:57 DALI-1 Antibody <1.0 neg AI (<1.0 NEG) 12/29/24 15:10 SS-A Antibody <1.0 neg AI (<1.0 NEG) 12/29/24 15:10 SS-B Antibody <1.0 neg AI (<1.0 NEG) 12/29/24 15:10 Sm (Lopez) Antibody <1.0 neg AI (<1.0 NEG) 12/29/24 15:10 STEWARD/STEWARDESS TOURIST CLASS Antibody <1.0 neg AI (<1.0 NEG) 12/29/24 15:10 Scl-70 Antibody <1.0 neg AI (<1.0 NEG) 12/29/24 15:10 Centromere B Antibody <1.0 neg AI (<1.0 NEG) 12/29/24 15:10 Complement C3c 95 mg/dL 12/29/24 15:10 Complement C4c 13 mg/dL 12/29/24 15:10 CH50 Classical Pathway >60 U/mL (31-60) H 12/29/24 15:10 Lymphoma Panel Cancelled 12/30/24 16:08 Immunophenotype Interp See report 12/30/24 16:08 Blood Type A Negative 12/27/24 11:48 Rho(D) Type Rh negative 12/27/24 11:48 Antibody Screen Negative 12/27/24 11:48 Crossmatch See Detail 12/27/24 11:48 Vitals Last Vital Signs Temp 97.5 F L 01/01/25 11:19 Pulse 78 01/01/25 11:19 Resp 17 01/01/25 11:19 BP 148/73 01/01/25 11:19 Pulse Ox 95 01/01/25 11:19 O2 Del Method Room Air 01/01/25 11:19 Discharge Plan Discharge Patient Disposition: Home Condition: Stable Prescriptions: New famotidine 20 mg tablet 20 mg PO BID 30 Days Qty: 60 0RF sucralfate [Carafate] 1 gram tablet 1 g PO BID 28 Days Qty: 56 0RF Continued levothyroxine [Levo-T] 125 mcg tablet 125 mcg PO DAILY albuterol sulfate 90 mcg/actuation HFA aerosol inhaler 1 puff inhalation QID PRN (Reason: Shortness Of Breath) ferrous sulfate 325 mg (65 mg iron) Tablet 325 mg PO DAILY PreserVision AREDS-2 250-90-40-1 mg Capsule 1 tab PO BID polyethylene glycol 3350 [Miralax] 17 gram/dose powder 17 g PO DAILY PRN (Reason: Constipation) Discontinued pantoprazole [Protonix] 40 mg tablet,delayed release (DR/EC) 40 mg PO BID 42 Days Qty: 84 1RF Discharge Orders: Discharge Order (Routine); Ordered 01/01/25 Ordered By: Maurice Mijares [facility] - 1 week (acute renal failure) Vick Salcido MD [Physician] - 2 weeks Deanna Bansal MD [Primary Care Provider] - 01/18/25 9:30 am Discharge Activity: Resume usual activity Patient Instructions: Famotidine (By mouth), Sucralfate (By mouth), GI Bleeding, Acute Kidney Injury (GEN), Chronic Kidney Disease (DC), Chronic Kidney Disease Diet (GEN), Anemia (GEN), End Stage Kidney Disease (DC), Opioid Safety Activity Restrictions/Additional Instructions: - Please have your primary care provider check your kidney function on a weekly basis -The hope is that your kidney function should slowly improve over time, but this might be your chronic kidney function -No significant electrolyte and maladies sodium is 133, bicarb 22, potassium 5.1, BUN 59, magnesium 1.9 -Your creatinine fluctuates between 4.8-5.5 -As long as you continue to put a good amount of urine out, you should continue to gradually improve -If you stop urinating, have flank pain, start developing swelling these are emergency signs go to the emergency room -Please consume at least 2 to 3 L of fluid a day -You do have a risk of developing heart failure, so if you start developing swelling of her legs, swelling of your abdomen is cut down your fluid intake to about 2 L of fluid a day -Please follow-up with [facility], for consideration of kidney biopsy -For your acute on chronic anemia, please stop taking pantoprazole -Take Pepcid twice daily, with Carafate -If you develop bloody or black stools, the emergency room -Please have your primary care provider recheck your hemoglobin on a weekly basis, hemoglobin discharge 8.2 -If your hemoglobin drops below 7 you might require blood transfusion -Please see general surgery in 2 weeks for consideration of EGD Discharge Attestations Time Spent in Discharge Care*: greater than 30 min Quality Metrics Clinical Quality Measures [ No reported AMI, CVA or VTE this stay] Coding Level of Care Code 11111 Total time (in minutes) for Discharge: 45 Diagnoses MAURO (acute kidney injury) N17.9 Anemia D64.9
[2025-01-01 14:49] LABS: ANA SCREEN, IFA NEGATIVE (NEGATIVE)
[2025-01-01 15:07] VITALS: BP 148/73; PULSE 78; RESP 17; TEMP 36.4; O2SAT 95
[2025-01-02 09:39] LABS: THYROID PEROXIDASE ANTIBODIES 40 IU/mL (<9)
[2025-01-05 13:45] LABS: DNA AB (DS) CRITHIDIA,IFA NEGATIVE (NEGATIVE)
== END 2025-01-01 15:09 | disposition home or self-care (01) | DRG 683 ==
LOC: ER 11:20 → MEDSURG 11:54
PROVIDERS: Admitting Provider Internal Medicine; Emergency Provider Family Medicine; PCP Family Medicine; Visit Provider Family Medicine
DX: N17.9 Acute kidney failure, unspecified (principal); E87.1 Hypo-osmolality and hyponatremia; D63.1 Anemia in chronic kidney disease; N18.9 Chronic kidney disease, unspecified; E03.9 Hypothyroidism, unspecified; Z79.890 Hormone replacement therapy; Z79.899 Other long term (current) drug therapy; Z90.49 Acquired absence of other specified parts of digestive tract; Z90.79 Acquired absence of other genital organ(s); R39.11 Hesitancy of micturition; Z91.048 Other nonmedicinal substance allergy status; Z85.46 Personal history of malignant neoplasm of prostate
CPT/HCPCS: 36415; 36430; 76770; 80048; 80053; 80503; 81001; 82274; 82550; 82570; 82607; 82746; 83010; 83615; 83735; 84156; 84300; 84443; 85014; 85025; 85045; 85651; 86160; 86162; 86235; 86255; 86376; 86850; 86900; 86920; 88184; 88185; 94664; 96360; 96372; 99285; G0378; J1650; J3490; J7030; J9999; P9016

== ENCOUNTER 2025-01-18 07:23 | Oncology outpatient (recurring) (ONCR) | payer MEDICARE, SELFPAY ==
[2025-01-18] VITALS (10 sets, daily range): BP systolic 111–134; BP diastolic 62–85; PULSE 64–73; RESP 17; TEMP 36.2–37; O2SAT 97–100
[2025-01-18] MEDS: diphenhydrAMINE 25 mg Capsule PO (07:52)
[2025-01-18] MEDS: acetaminophen 500 mg Tablet 1000 MG PO (07:52)
[2025-01-18 07:57] LABS: Hematocrit 22.9 % (37-53)
== END 2025-01-30 23:59 | disposition home or self-care (01) ==
PROVIDERS: PCP Family Medicine; Visit Provider Family Medicine
DX: D64.9 Anemia, unspecified (principal)
CPT/HCPCS: 36415; 36430; 85014; 85018; 86850; 86900; 86920; J9999; P9016

== ENCOUNTER → 2025-01-22 08:49 | Outpatient (BNVA) | payer MEDICARE, SELFPAY | PROVIDERS: PCP Family Medicine; Visit Provider Surgery | DX: K21.9 Gastro-esophageal reflux disease without esophagitis (principal) | CPT/HCPCS: 99213 ==

== ENCOUNTER 2025-02-09 13:45 | Emergency (ER) | payer MEDICARE, SELFPAY ==
[2025-02-09 13:52] VITALS: BP 168/84; PULSE 96; RESP 14; TEMP 36.4; O2SAT 98
--- NOTE | 2025-02-09 13:58 | XRR_ITS ---
PROCEDURE INFORMATION: Exam: XR Chest Exam date and time: 02/09/2025 2:35 PM Age: 84 years old Clinical indication: Other: Weakness TECHNIQUE: Imaging protocol: Radiologic exam of the chest. Views: 1 view. COMPARISON: No relevant prior studies available. FINDINGS: Tubes, catheters and devices: Right internal jugular double-lumen central line tip is in the superior cavoatrial junction. Lungs: Bibasilar atelectasis. No consolidation. Pleural spaces: Unremarkable. No pleural effusion. No pneumothorax. Heart/Mediastinum: The heart is enlarged. Bones/joints: Moderate degenerative disease of bilateral acromioclavicular joints. There are moderate degenerative changes of the glenohumeral joints. The thoracic spine demonstrates moderate degenerative changes at multiple levels. XR/XR chest 1V portable [id number] IMPRESSION: No acute cardiopulmonary process.
--- NOTE | 2025-02-09 13:59 | ECG_ITS ---
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
--- NOTE | 2025-02-09 14:00 | CTR_ITS ---
PROCEDURE INFORMATION: Exam: CT Head Without Contrast Exam date and time: 02/09/2025 2:29 PM Age: 84 years old Clinical indication: Pain; Headache; Additional info: BARDALES TECHNIQUE: Imaging protocol: Computed tomography of the head without contrast. Radiation optimization: All CT scans at this facility use at least one of these dose optimization techniques: automated exposure control; mA and/or kV adjustment per patient size (includes targeted exams where dose is matched to clinical indication); or iterative reconstruction. COMPARISON: No relevant prior studies available. RADIATION DOSE METRICS: Total DLP (mGy-cm): 1138.4 FINDINGS: Brain: Age related diffuse parenchymal volume loss. There are bilateral periventricular white matter and centrum semiovale hypodensities, consistent with chronic ischemic small vessel disease. Hypodensities in the lopez, likely from prior ischemic changes. No recent infarct, intracranial bleed or mass effect. Cerebral ventricles: Ex vacuo dilatation of the ventricles. Pituitary gland and sella: Enlarged pituitary gland measuring 1.3 x 1.1 cm. Paranasal sinuses: Visualized sinuses are unremarkable. No fluid levels. Mastoid air cells: Visualized mastoid air cells are well aerated. Orbital cavities: Post bilateral cataract surgery. Teeth: There are bilateral 2nd maxillary molar teeth periapical lucencies. Bones: Unremarkable. No acute fracture. Soft tissues: Unremarkable. CT/CT head wo con* [id number] IMPRESSION: 1. No large territorial infarct or intracranial bleed. 2. Enlarged pituitary gland that needs follow-up with a dedicated pituitary MRI if clinically warranted.
--- NOTE | 2025-02-09 14:02 | W.ED.WEAKNES ---
HPI - Weakness General: Chief complaint: Weakness Stated complaint: weak, low bp Time Seen by Provider: 02/09/25 13:51 Source: patient Mode of arrival: ambulatory Limitations: no limitations History of Present Illness: 84-year-old male has a history of multiple Aloma also has renal failure has been on dialysis for a week and a half he had recently started chemo as well he states that after dialysis yesterday has been having some vomiting along with headaches states he feels dehydrated he denies any fever denies any abdominal pain denies any worse improved factors Associated symptoms: Reports headache(s), nausea and vomiting; Denies chest pain, chills or fever(s) Review of Systems Const: Reports: malaise; Denies: fever(s), chills, body aches or change in appetite Eyes: Denies: blurry vision or eye discomfort ENMT: Denies: throat pain or dental pain Card: Denies: chest pain Resp: Denies: dyspnea GI: Reports: nausea and vomiting; Denies: abdominal pain or diarrhea Musc: Denies: neck pain or back pain Skin/Breast: Denies: rash Neuro: Reports: headache(s) PFSH ED PFSH: Medical History Anemia History of colon polyps Hx of echocardiogram 03/22/2024 Surgical History History of esophagogastroduodenoscopy (EGD) History of colonoscopy Hx laparoscopic cholecystectomy 06/07/2013 Hx of prostatectomy Social History Alcohol intake: never Substance/Drug Use: never Household members: spouse Physical Exam Const: COMMON NORMALS: no acute distress, patient oriented x3 and healthy appearing HENMT: COMMON NORMALS: normocephalic and atraumatic HEAD & SCALP: normocephalic and atraumatic Eye: COMMON NORMALS: conjunctivae normal CONJUNCTIVA: Yes conjunctivae normal Neck/C-Spine: COMMON NORMALS: full ROM and supple Chest: COMMONS NORMALS: normal inspection of the chest Resp: COMMON NORMALS: normal respiratory effort, No retractions, No use of accessory muscles and clear to auscultation bilaterally AUSCULTATION: clear to auscultation bilaterally Cardio: COMMON NORMALS: regular rate, regular rhythm and No murmurs present (Cardio) RATE: regular rate RHYTHM: regular rhythm GI: COMMON NORMALS: Normal to inspection, nondistended, normoactive bowel sounds present, Soft to palpation, non-tender and no masses PALPATION: Yes Soft to palpation Extremity: COMMON NORMALS: normal to inspection and full ROM Neuro: COMMON NORMALS: patient oriented x3, moves all extremities and no focal motor deficits Psych: COMMON NORMALS: mental status grossly normal, Normal thought process present and cooperative THOUGHT PROCESS: Normal thought process present Skin: COMMON NORMALS: no rashes or lesions noted and no wounds GENERAL SKIN EXAM: no rashes or lesions noted Course Vital Signs: Vital signs: Vital Signs Temperature 97.6 F 02/09/25 13:52 Pulse Rate 76 02/09/25 15:28 Respiratory Rate 16 02/09/25 15:23 Blood Pressure 183/90 02/09/25 15:28 Pulse Oximetry 96 02/09/25 15:28 Oxygen Delivery Me thod Room Air 02/09/25 15:28 MDM - Weakness Medical Decision Making Patient presents here with vomiting generalized weakness likely from his chemo. He feels much improved after fluids blood works at his baseline imaging is normal he stable for discharge follow-up PCP return if worsening. Medical Records I reviewed the patient's medical records. Lab Data I reviewed the patient's lab results. 02/09/25 15:00 02/09/25 15:00 Radiology Impressions Chest X-Ray 02/09/25 13:58 IMPRESSION: No acute cardiopulmonary process. Head CT 02/09/25 14:00 IMPRESSION: 1. No large territorial infarct or intracranial bleed. 2. Enlarged pituitary gland that needs follow-up with a dedicated pituitary MRI if clinically warranted. Laboratory Results WBC 3.64 10^3/uL (3.29-11.43) 02/09/25 15:00 RBC 2.84 10^6/uL (3.85-5.65) L 02/09/25 15:00 Hgb 8.30 g/dL (11.27-16.99) L 02/09/25 15:00 Hct 25.8 % (37-53) L 02/09/25 15:00 MCV 90.8 fl (82-101) 02/09/25 15:00 MCH 29.2 pg (27-33) 02/09/25 15:00 MCHC 32.2 g/dL (30-55) 02/09/25 15:00 RDW 14.1 % (12.1-15.1) 02/09/25 15:00 Plt Count 135 10^3/cmm (157-399) L 02/09/25 15:00 MPV 9.3 fL (7.4-10.4) 02/09/25 15:00 Neut % (Auto) 72.3 % 02/09/25 15:00 Lymph % (Auto) 15.9 % 02/09/25 15:00 Person % (Auto) 9.3 % 02/09/25 15:00 Eos % (Auto) 1.4 % 02/09/25 15:00 Baso % (Auto) 0.3 % 02/09/25 15:00 Neut # (Auto) 2.63 10^3/uL (1.8-7.7) 02/09/25 15:00 Lymph # (Auto) 0.6 10^3/uL (0.8-4.8) L 02/09/25 15:00 Person # (Auto) 0.3 10^3/uL (0.2-0.9) 02/09/25 15:00 Eos # (Auto) 0.1 10^3/uL (0.0-0.8) 02/09/25 15:00 Baso # (Auto) 0.0 10^3/uL (0.0-0.1) 02/09/25 15:00 Nucleated RBC % (auto) 0 % 02/09/25 15:00 Nucleated RBCs # 0.0 /100WBC 02/09/25 15:00 Sodium 135 mmol/L (136-145) L 02/09/25 15:00 Potassium 3.5 mmol/L (3.5-5.1) 02/09/25 15:00 Chloride 95 mmol/L (98-107) L 02/09/25 15:00 Carbon Dioxide 27 mmol/L (22-29) 02/09/25 15:00 Anion Gap 16.5 (5-19) 02/09/25 15:00 BUN 34 mg/dL (8-23) H 02/09/25 15:00 Creatinine 5.1 mg/dL (0.7-1.2) H 02/09/25 15:00 GFR Calculation Not Reportable 02/09/25 15:00 Glucose 79 mg/dL (65-115) 02/09/25 15:00 Calculated Osmolality 287 mOsm/kg (285-295) 02/09/25 15:00 Calcium 8.3 mg/dL (8.5-10.5) L 02/09/25 15:00 Total Bilirubin 0.6 mg/dL (0.15-1.2) 02/09/25 15:00 AST 22 U/L (0-40) 02/09/25 15:00 ALT 11 U/L (0-41) 02/09/25 15:00 Alkaline Phosphatase 110 U/L (40-130) 02/09/25 15:00 Total Protein 9.9 g/dL (6.6-8.7) H 02/09/25 15:00 Albumin 2.5 g/dL (3.5-5.2) L 02/09/25 15:00 Globulin 7.4 g/dL (1.3-4.6) H 02/09/25 15:00 Lipase 57 U/L (13-60) 02/09/25 15:00 All radiology interpretation(s) finalized by discharge Discharge Plan Discharge Patient Disposition: Home Clinical Impression: Vomiting Condition: Stable Prescriptions: New ondansetron 4 mg tablet,disintegrating 4 mg PO Q6H PRN (Reason: nausea and vomiting) Qty: 14 0RF No Action levothyroxine [Levo-T] 125 mcg tablet 125 mcg PO DAILY albuterol sulfate 90 mcg/actuation HFA aerosol inhaler 1 puff inhalation QID PRN (Reason: Shortness Of Breath) cyanocobalamin (vitamin B-12) 100 mcg tablet 100 mcg PO DAILY famotidine [Acid Undraped Artist Model (famotidine)] 20 mg tablet 20 mg PO BID ferrous sulfate 325 mg (65 mg iron) Tablet 325 mg PO DAILY PreserVision AREDS-2 250-90-40-1 mg Capsule 1 tab PO BID polyethylene glycol 3350 [Miralax] 17 gram/dose powder 17 g PO DAILY PRN (Reason: Constipation) sucralfate 1 gram Tablet 1 g PO BID diphenhydramine HCl [Benadryl] 25 mg Capsule 25 mg PO TID PRN (Reason: Allergic Reaction) cyclophosphamide 50 mg tablet See Rx Instructions .ROUTE .COMPLEX Rx Instructions: Take 600 mg orally during or after meal in the morning. Take weekly on days 1,8,15, of 28 day cycle. dexamethasone 20 mg tablet See Rx Instructions .ROUTE .COMPLEX Rx Instructions: Take 40mg orally weekly on days 1,8,15,22 of 28 days cycle. Take with food in the morning. 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 Boat for Chg Fwd Related Data Home Medications ?Medication ?Instructions ?Recorded ?Confirmed albuterol sulfate 90 mcg/actuation 1 puff inhalation QID PRN 11/05/24 02/09/25 aerosol inhaler Shortness Of Breath levothyroxine 125 mcg tablet 125 mcg PO DAILY 11/05/24 02/09/25 (Levo-T) ferrous sulfate 325 mg (65 mg 325 mg PO DAILY 12/29/24 02/09/25 iron) tablet polyethylene glycol 3350 17 17 g PO DAILY PRN Constipation 12/29/24 02/09/25 gram/dose oral powder (Miralax) vit C 250 mg-vit E 90 mg-zinc 40 1 tab PO BID 12/29/24 02/09/25 mg-copper 1 [id number] capsule (PreserVision AREDS-2) cyanocobalamin (vitamin B-12) 100 100 mcg PO DAILY 02/06/25 02/09/25 mcg tablet famotidine 20 mg tablet (Acid 20 mg PO BID 02/06/25 02/09/25 Undraped Artist Model (famotidine)) cyclophosphamide 50 mg tablet See Rx Instructions .Route .COMPLEX 02/09/25 02/09/25 dexamethasone 20 mg tablet See Rx Instructions .Route .COMPLEX 02/09/25 02/09/25 diphenhydramine HCl 25 mg capsule 25 mg PO TID PRN Allergic Reaction 02/09/25 02/09/25 (Benadryl) sucralfate 1 gram tablet 1 g PO BID 02/09/25 02/09/25 Previous Rx's ?Medication ?Instructions ?Recorded ondansetron 4 mg disintegrating 4 mg PO Q6H PRN nausea and 02/09/25 tablet vomiting #14 tabs Allergies Allergy/AdvReac Type Severity Reaction Status Date / Time grass pollen Allergy Unknown Verified 02/06/25 13:42 house dust Allergy Unknown Verified 02/06/25 13:42 mold Allergy Unknown Verified 02/06/25 13:42 grass oil Allergy Unknown Uncoded 02/06/25 13:42 sycamore tree Allergy Unknown Uncoded 02/06/25 13:42
[2025-02-09 15:12] LABS: Basophils % 0.3 %; Eosinophils # 0.1 10^3/uL (0.0-0.8); Eosinophils % 1.4 %; Hematocrit 25.8 % (37-53); Lymphocytes # 0.6 10^3/uL (0.8-4.8); Lymphocytes % 15.9 %; Mean Corpuscular HGB Conc 32.2 g/dL (30-55); Mean Corpuscular Hemoglobin 29.2 pg (27-33); Mean Corpuscular Volume 90.8 fl (82-101); Mean Platelet Volume 9.3 fL (7.4-10.4); Monocytes # 0.3 10^3/uL (0.2-0.9); Monocytes % 9.3 %; Neutrophils # 2.63 10^3/uL (1.8-7.7); Neutrophils % 72.3 %; Nucleated Red Blood Cells % 0 %; Platelet Count 135 10^3/cmm (157-399); Red Blood Count 2.84 10^6/uL (3.85-5.65); Red Cell Distribution Width 14.1 % (12.1-15.1); White Blood Count 3.64 10^3/uL (3.29-11.43)
[2025-02-09] MEDS: ondansetron 2 mg/ML SDV 2 mL 4 MG IVP (15:21)
[2025-02-09] MEDS: sodium chloride 0.9% 500 ML 999 ML IV (15:21)
[2025-02-09 15:23] VITALS: RESP 16; O2SAT 99
[2025-02-09] MEDS: morphine 4 mg/mL SDV 1 mL IVP (15:23)
[2025-02-09 15:28] VITALS: BP 183/90; PULSE 76; O2SAT 96
[2025-02-09 15:28] LABS: Alanine Aminotransferase 11 U/L (0-41); Albumin Level 2.5 g/dL (3.5-5.2); Alkaline Phosphatase 110 U/L (40-130); Anion Gap 16.5 (5-19); Aspartate Amino Transferase 22 U/L (0-40); Blood Urea Nitrogen 34 mg/dL (8-23); Calcium 8.3 mg/dL (8.5-10.5); Carbon Dioxide 27 mmol/L (22-29); Chloride 95 mmol/L (98-107); Creatinine Clr Calc Pharmacy 12.5255; Globulin 7.4 g/dL (1.3-4.6); Glucose 79 mg/dL (65-115); Lipase 57 U/L (13-60); Osmolality Calculated 287 mOsm/kg (285-295); Potassium 3.5 mmol/L (3.5-5.1); Sodium 135 mmol/L (136-145); Total Bilirubin 0.6 mg/dL (0.15-1.2); Total Protein 9.9 g/dL (6.6-8.7)
[2025-02-09 16:00] VITALS: BP 183/90; PULSE 70; O2SAT 95
[2025-02-09 16:19] VITALS: BP 180/94; PULSE 74; O2SAT 94
== END 2025-02-09 16:20 | disposition home or self-care (01) ==
PROVIDERS: Emergency Provider Emergency Medicine; PCP Family Medicine
DX: R11.10 Vomiting, unspecified (principal); N18.9 Chronic kidney disease, unspecified; Z99.2 Dependence on renal dialysis
CPT/HCPCS: 36415; 70450; 71045; 80053; 83690; 85025; 93005; 96361; 96374; 96375; 99285; J2270; J2405; J7040

== ENCOUNTER 2025-02-11 15:12 | Inpatient (IN) | payer MEDICARE, SELFPAY ==
[2025-02-11] VITALS (10 sets, daily range): BP systolic 93–142; BP diastolic 53–85; PULSE 65–91; RESP 14–18; TEMP 37.2; O2SAT 93–99; BMI 22.5
--- NOTE | 2025-02-11 15:16 | ECG_ITS ---
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1940 Requested By: Marco Triplett Order Number: [id number] Reading MD: FADI MORILLO Measurements Intervals [place] Rate: 85 P: 51 [place]: 221 QRS: 261 QRSD: 106 T: 66 QT: 393 QTc: 468 Interpretive Statements SINUS RHYTHM WITH FIRST DEGREE AV BLOCK WITH OCCASIONAL SUPRAVENTRICULAR PREMATURE COMPLEXES POSSIBLE RIGHT VENTRICULAR HYPERTROPHY [SOME/ALL OF: PROMINENT R IN V1, LATE TRANSITION, RAD, NETTIE, SSS] POSSIBLE ANTERIOR MYOCARDIAL INFARCTION , OF INDETERMINATE AGE [30 ms Q WAVE IN V3/V4, OR R < 0.2 mV IN V4] INFERIOR MYOCARDIAL INFARCTION , OF INDETERMINATE AGE [40+ ms Q WAVE AND/OR ST/T ABNORMALITY IN II/aVF] Compared to ECG 02/09/2025 13:59:40 No significant changes Electronically Signed On 02-14-2025 23:36:03 CDT by FADI MORILLO [email or web address] [id number]
--- NOTE | 2025-02-11 15:16 | XR_ITS ---
WS: [id number] Exam: XR chest 1V portable [id number] Date/Time of Exam: 02/11/2025 3:17 PM Reason For Exam: dyspnea/cough Comparison 02/09/2025. Lungs are fully expanded. Bibasal plaque atelectasis. Mild cardiac enlargement unchanged. The mediastinum is normal in contour. A right-sided double-lumen catheter is in place ending at the cavoatrial junction unchanged in position. XR/XR chest 1V portable [id number] IMPRESSION: 1. No acute cardiopulmonary finding. No change.
[2025-02-11 15:30] LABS: Basophils % 0.2 %; Eosinophils # 0.1 10^3/uL (0.0-0.8); Eosinophils % 1.7 %; Hematocrit 24.5 % (37-53); Lymphocytes # 0.9 10^3/uL (0.8-4.8); Lymphocytes % 18.9 %; Mean Corpuscular HGB Conc 32.2 g/dL (30-55); Mean Corpuscular Hemoglobin 29.7 pg (27-33); Mean Corpuscular Volume 92.1 fl (82-101); Mean Platelet Volume 10.1 fL (7.4-10.4); Monocytes # 0.3 10^3/uL (0.2-0.9); Monocytes % 6.5 %; Neutrophils # 3.29 10^3/uL (1.8-7.7); Neutrophils % 70.8 %; Nucleated Red Blood Cells % 0 %; Platelet Count 112 10^3/cmm (157-399); Red Blood Count 2.66 10^6/uL (3.85-5.65); Red Cell Distribution Width 14.3 % (12.1-15.1); White Blood Count 4.65 10^3/uL (3.29-11.43)
--- NOTE | 2025-02-11 15:40 | ED_ITS ---
HPI - Weakness 2 General: Chief complaint: Weakness Stated complaint: fatigue, weakness Time Seen by Provider: 02/11/25 15:15 History of Present Illness: 84-year-old male presents to the emergen cy room with complaints of just generally not feeling well he is very difficult historian he is somewhat confused initially studies in [place] when I pressed him on what he remembers that he was actually in [place] when suggested to rib. He states he is okay to bone cancer but you cannot be sure. In reviewing the chart he has multiple myeloma and was recently found to have acute kidney injury and was started on dialysis about a week and a half ago. He did not go to dialysis today just generally not feeling well so he did not go. He is still receiving chemotherapy for his multiple myeloma this was started fairly recently. He denies abdominal pain he denies making any urine at this point anymore. No fever sweats chills no chest pain. Associated symptoms: Denies chest pain, chills or fever(s) Review of Systems 2 Const: Reports: fatigue and malaise; Denies: fever(s) or chills Card: Denies: chest pain Resp: Denies: dyspnea GI: Denies: abdominal pain Musc: Denies: neck pain or back pain Skin/Breast: Denies: rash PFSH ED 2 PFSH: Medical History Multiple myeloma GERD (gastroesophageal reflux disease) Anemia History of colon polyps Hx of echocardiogram 03/22/2024 Surgical History History of esophagogastroduodenoscopy (EGD) History of colonoscopy Hx laparoscopic cholecystectomy 06/07/2013 Hx of prostatectomy Social History Alcohol intake: never Substance/Drug Use: never Household members: spouse Physical Exam 2 Const: COMMON NORMALS: no acute distress ORIENTATION/CONSCIOUSNESS: Yes awake HENMT: COMMON NORMALS: normocephalic, atraumatic and hearing grossly normal bilaterally HEAD & SCALP: normocephalic and atraumatic Resp: COMMON NORMALS: normal respiratory effort, No retractions, No use of accessory muscles and clear to auscultation bilaterally AUSCULTATION: clear to auscultation bilaterally Cardio: COMMON NORMALS: regular rate, regular rhythm and No murmurs present (Cardio) RATE: regular rate RHYTHM: regular rhythm GI: COMMON NORMALS: Soft to palpation and No hepatosplenomegaly present A USCULTATION: Yes normoactive bowel sounds PALPATION: Yes Soft to palpation, No Tenderness to palpation present (GI), No Guarding due to palpation present (GI) and Yes No hepatosplenomegaly present Extremity: COMMON NORMALS: normal to inspection, capillary refill normal, no clubbing, cyanosis or edema, no calf tenderness and no pedal edema Skin: COMMON NORMALS: no rashes or lesions noted GENERAL SKIN EXAM: no rashes or lesions noted Course 2 Vital Signs: Vital signs: Vital Signs Temperature 98.9 F 02/11/25 15:19 Pulse Rate 71 02/11/25 17:00 Respiratory Rate 14 02/11/25 15:19 Blood Pressure 114/64 02/11/25 17:00 Pulse Oximetry 94 02/11/25 17:00 Oxygen Delivery Me thod Room Air 02/11/25 17:00 MDM - Weakness Medical Decision Making Encephalopathic I believe it is from uremia his creatinine is up to 8.9 his potassium is normal his BUN has climbed to 54. He did not have dialysis today just did not feel well enough to go. Will place on observation. He is not making any urine. His white count is normal his hemoglobin is low but is about where he normally runs at 7.9. Discussed with hospitalist also discussed with nephrology. He will need to be dialyzed. Medical Records I reviewed the patient's medical records. Lab Data I reviewed the patient's lab results. 02/11/25 15:24 02/11/25 15:24 Radiology Impressions Chest X-Ray 02/11/25 15:16 IMPRESSION: 1. No acute cardiopulmonary finding. No change. Laboratory Results WBC 4.65 10^3/uL (3.29-11.43) 02/11/25 15:24 RBC 2.66 10^6/uL (3.85-5.65) L 02/11/25 15:24 Hgb 7.90 g/dL (11.27-16.99) L 02/11/25 15:24 Hct 24.5 % (37-53) L 02/11/25 15:24 MCV 92.1 fl (82-101) 02/11/25 15:24 MCH 29.7 pg (27-33) 02/11/25 15: MCHC 32.2 g/dL (30-55) 02/11/25 15:24 RDW 14.3 % (12.1-15.1) 02/11/25 15:24 Plt Count 112 10^3/cmm (157-399) L 02/11/25 15: MPV 10.1 fL (7.4-10.4) 02/11/25 15:24 Neut % (Auto) 70.8 % 02/11/25 15:24 Lymph % (Auto) 18.9 % 02/11/25 15: [place] % (Auto) 6.5 % 02/11/25: Eos % (Auto) 1.7 % 02/11/25 15: Baso % (Auto) 0.2 % 02/11/25: Neut # (Auto) 3.29 10^3/uL (1.8-7.7) 02/11/25 15: Lymph # (Auto) 0.9 10^3/uL (0.8-4.8) 02/11/25 15:24 [place] # (Auto) 0.3 10^3/uL (0.2-0.9) 02/11/25: Eos # (Auto) 0.1 10^3/uL (0.0-0.8) 02/11/25 15: Baso # (Auto) 0.0 10^3/uL (0.0-0.1) 02/11/25: Nucleated RBC % (auto) 0 % 02/11/25 15: Nucleated RBCs # 0.0 /100WBC 02/11/25 15:24 Sodium 130 mmol/L (136-145) L 02/11/25 15:24 Potassium 3.7 mmol/L (3.5-5.1) 02/11/25 15:24 Chloride 91 mmol/L (98-107) L 02/11/25 15:24 Carbon Dioxide 26 mmol/L (22-29) 02/11/25 15:24 Anion Gap 16.7 (5-19) 02/11/25 15:24 BUN 51 mg/dL (8-23) H 02/11/25 15:24 Creatinine 8.9 mg/dL (0.7-1.2) H* 02/11/25 15:24 GFR Calculation Not Reportable 02/11/25 15:24 Glucose 84 mg/dL (65-115) 02/11/25 15:24 Calculated Osmolality 283 mOsm/kg (285-295) L 02/11/25 15:24 Calcium 7.8 mg/dL (8.5-10.5) L 02/11/25 15:24 Total Bilirubin 0.6 mg/dL (0.15-1.2) 02/11/25 15:24 AST 23 U/L (0-40) 02/11/25 15:24 ALT 16 U/L (0-41) 02/11/25 15:24 Alkaline Phosphatase 180 U/L (40-130) H 02/11/25 15:24 Total Protein 9.2 g/dL (6.6-8.7) H 02/11/25 15:24 Albumin 2.3 g/dL (3.5-5.2) L 02/11/25 15:24 Globulin 6.9 g/dL (1.3-4.6) H 02/11/25 15:24 All radiology interpretation(s) finalized by discharge Discharge Plan Discharge Patient Disposition: Placed in Observation Clinical Impression: Encephalopathy acute, Uremia of renal origin Multiple myeloma Qualifiers: Multiple myeloma remission status: not in remission Qualified Code(s): C90.00 - Multiple myeloma not having achieved remission Anemia Qualifiers: Anemia type: unspecified type Qualified Code(s): D64.9 - Anemia, unspecified Coding Level of Care Code ED Computer Programmer Analyst for Chg Fwd Related Data Home Medications ?Medication ?Instructions ?Recorded ?Confirmed albuterol sulfate 90 mcg/actuation 1 puff inhalation Q ID PRN 11/05/24 02/11/25 aerosol inhaler Shortness Of Breath levothyroxine 125 mcg tablet 125 mcg PO DAILY 11/05/24 02/11/25 (Levo-T) ferrous sulfate 325 mg (65 mg 325 mg PO DAILY 12/29/24 02/11/25 iron) tablet polyethylene glycol 3350 17 17 g PO DAILY PRN Constipa tion 12/29/24 02/11/25 gram/dose oral powder (Miralax) vit C 250 mg-vit E 90 mg-zinc 40 1 tab PO BID 12/29/24 02/11/25 mg-copper 1 [id number] capsule (PreserVision AREDS-2) cyanocobalamin (vitamin B-12) 100 100 mcg PO DAILY 04/2602/11/25 mcg tablet famotidine 20 mg tablet (Acid 20 mg PO BID 02/06/25 Internet Marketing Specialist (famotidine)) cyclophosphamide 50 mg tablet See Rx Instructions .Rou te .COMPLEX 02/09/25 02/11/25 dexamethasone 20 mg tablet See Rx Instructions .Route .COMPLEX 02/09/25 02/11/25 diphenhydramine HCl 25 mg capsule 25 mg PO TID PRN All ergic Reaction 02/09/25 02/11/25 (Benadryl) sucralfate 1 gram tablet 1 g PO BID 02/09/25 02/11/25 Previous Rx's ?Medication ?Instructions ?Recorded ondansetron 4 mg disintegrating 4 mg PO Q6H PRN nausea and 02/09/25 tablet vomiting #14 tabs Allergies Allergy/AdvReac Type Severity Reaction Status Date / Time grass pollen Allergy Unknown Verified 02/06/25 13:42 house dust Allergy Unknown Verified 02/06/25 13:42 mold Allergy Unknown Verified 02/06/25 13:42 grass oil Allergy Unknown Uncoded 02/06/25 13:42 sycamore tree Allergy Unknown Uncoded 02/06/25 13:42
[2025-02-11] MEDS: sodium chloride 0.9% 1,000 ML 999 ML IV (15:51)
[2025-02-11 15:58] LABS: Alanine Aminotransferase 16 U/L (0-41); Albumin Level 2.3 g/dL (3.5-5.2); Alkaline Phosphatase 180 U/L (40-130); Anion Gap 16.7 (5-19); Aspartate Amino Transferase 23 U/L (0-40); Blood Urea Nitrogen 51 mg/dL (8-23); Calcium 7.8 mg/dL (8.5-10.5); Carbon Dioxide 26 mmol/L (22-29); Chloride 91 mmol/L (98-107); Creatinine Clr Calc Pharmacy 7.0246; Globulin 6.9 g/dL (1.3-4.6); Glucose 84 mg/dL (65-115); Osmolality Calculated 283 mOsm/kg (285-295); Potassium 3.7 mmol/L (3.5-5.1); Sodium 130 mmol/L (136-145); Total Bilirubin 0.6 mg/dL (0.15-1.2); Total Protein 9.2 g/dL (6.6-8.7)
--- NOTE | 2025-02-11 17:07 | CTR_ITS ---
PROCEDURE INFORMATION: Exam: CT Head Without Contrast Exam date and time: 02/11/2025 5:14 PM Age: 84 years old Clinical indication: Walking, difficulty; Additional info: AMS TECHNIQUE: Imaging protocol: Computed tomography of the head without contrast. Radiation optimization: All CT scans at this facility use at least one of these dose optimization techniques: automated exposure control; mA and/or kV adjustment per patient size (includes targeted exams where dose is matched to clinical indication); or iterative reconstruction. COMPARISON: CT head wo con* [id number] 02/09/2025 2:29 PM RADIATION DOSE METRICS: Total DLP (mGy-cm): 1190.76 FINDINGS: Brain: Age-related brain parenchymal atrophy. Areas of hypoattenuation in the periventricular and subcortical deep white matter likely on the basis of chronic microvascular ischemic changes. No acute intra cranial hemorrhage. No mass effect or midline shift. No definitive CT evidence of acute territorial infarction. Cerebral ventricles: Prominence of the lateral ventricular system likely on the basis of parenchymal volume loss. Paranasal sinuses: Visualized sinuses are unremarkable. No fluid levels. Mastoid air cells: Visualized mastoid air cells are well aerated. Bones: Intact calvarium. Soft tissues: Unremarkable. CT/CT head wo con* [id number] IMPRESSION: No acute intracranial abnormality. Senescent changes.
--- NOTE | 2025-02-11 17:47 | P.HP_ITS ---
Providers/Chief Complaint 2 Primary Care Provider: Deanna Bansal MD Chief Complaint: fatigue, weakness History of Present Illness Manuel Parsons is a 84 year old male with recent history of multiple myeloma started on chemotherapy with the last 2 weeks, end-stage renal disease on hemodialysis started within last 1 month presented to the ER today with family at bedside because of generalized weakness, lethargy which has been worsening over the last 3 days. As per the family members patient was able to walk around, go back and forth from his dialysis with a walker by himself until Tuesday. On Tuesday, after dialysis he started becoming weaker, had an episode of vomiting and since then he has been more lethargic, has poor oral intake, has been tired appearing. While seen in the ER patient was laying comfortably in bed, sleeping but wakes up to have verbal communication. On waking up patient is awake and alert. He is able to participate in history taking. Denies any nausea, vomiting except 1 time, abdominal pain. Had a bowel movements last week. Denies any difficulty in breathing or pain. As per the family member's appetite has been getting poor as well. Review of Systems 2 General: Reports: 10 or more systems reviewed and unremarkable except in HPI and below Const: Denies: fever(s), chills, body aches, change in appetite, change in weight, malaise, night sweats, diaphoresis, change in sleep pattern, daytime sleepiness or snoring Eyes: Denies: change in vision, blurry vision, photophobia, eye discomfort or eye discharge ENMT: Denies: throat pain, enlarged tonsils, hoarseness, mouth pain, oral sores, dry mouth, tinnitus, nasal congestion or post nasal drip Card: Denies: chest pain, palpitations, irregular heart rhythm, edema, swelling of feet/ankles, lightheadedness, syncope, pre-syncope, dyspnea on exertion, orthopnea, leg pain with exertion or acrocyanosis Resp: Denies: dyspnea, productive cough, non-productive cough, wheezing, stridor, pain on inspiration, change in phlegm color, hemoptysis or chest congestion GI: Denies: abdominal pain, nausea, vomiting, hematemesis, coffee ground emesis, dysphagia, heartburn, diarrhea, constipation, bloating, GI cramping, change in bowel habits, pain on defecation, hematochezia or melena : Denies: flank pain, difficulty urinating, dysuria, urinary frequency, urinary urgency, urinary hesitancy, urinary dribbling, difficulty starting urination, change in urine stream, nocturia or hematuria Musc: Denies: neck pain, back pain, extremity pain, joint pain, joint swelling, joint redness, joint stiffness or limited range of motion Neuro: Denies: headache(s), numbness in extremities, weakness in extremities, sensory changes, lack of coordination, difficulty walking, frequent falls, dizziness, vertigo, confusion, Slurred speech present, difficulty communicating thoughts or seizure-like activity Psych: Denies: anxiety, depression, mood swings, panic attacks, hopelessness or irritability Endo: Denies: polyuria, polydipsia, tired all the time, cold intolerance, excessive sweating, flushing or heat intolerance Nigel/Lymph: Denies: easy bruising or easy bleeding All/Imm: Denies: tongue swelling, facial swelling or acute wheezing Medications/Allergies Home Medications ?Medication ?Instructions ?Recorded ?Confirmed ?Last Taken ?Type albuterol sulfate 90 mcg/actuation 1 puff inhalation Q ID PRN 11/05/24 02/11/25 Unknown History aerosol inhaler Shortness Of Breath levothyroxine 125 mcg tablet 125 mcg PO DAILY 11/05/24 02/11/25 02/10/25 History (Levo-T) ferrous sulfate 325 mg (65 mg 325 mg PO DAILY 12/29/24 02/11/25 02/08/25 History iron) tablet polyethylene glycol 3350 17 17 g PO DAILY PRN Constipa tion 12/29/24 02/11/25 Unknown History gram/dose oral powder (Miralax) vit C 250 mg-vit E 90 mg-zinc 40 1 tab PO BID 12/29/24 02/11/25 02/08/25 History mg-copper 1 [id number]-ktcleg capsule (PreserVision AREDS-2) cyanocobalamin (vitamin B-12) 100 100 mcg PO DAILY 04/2602/11/25 Unknown History mcg tablet famotidine 20 mg tablet (Acid 20 mg PO BID 02/06/2502/08/25 History Legal Services Manager (famotidine)) cyclophosphamide 50 mg tablet See Rx Instructions .Rou te .COMPLEX 02/09/25 02/11/25 02/08/25 History dexamethasone 20 mg tablet See Rx Instructions .Route .COMPLEX 02/09/25 02/11/25 02/08/25 History diphenhydramine HCl 25 mg capsule 25 mg PO TID PRN All ergic Reaction 02/09/25 02/11/25 Unknown History (Benadryl) ondansetron 4 mg disintegrating 4 mg PO Q6H PRN nausea and 02/09/25 02/11/25 Unknown Rx tablet vomiting #14 tabs sucralfate 1 gram tablet 1 g PO BID 02/09/25 02/11/25 02/08/25 History Allergies Allergy/AdvReac Type Severity Reaction Status Date / Time grass pollen Allergy Unknown Verified 02/06/25 13:42 house dust Allergy Unknown Verified 02/06/25 13:42 mold Allergy Unknown Verified 02/06/25 13:42 grass oil Allergy Unknown Uncoded 02/06/25 13:42 sycamore tree Allergy Unknown Uncoded 02/06/25 13:42 PFSH Acute 2 PFSH: Medical History (Updated 02/12/25 @ 10:49 by Babatunde Boykin MD) Chronic idiopathic constipation 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 Multiple myeloma GERD (gastroesophageal reflux disease) Anemia History of colon polyps Hx of echocardiogram 03/22/2024 Surgical History History of esophagogastroduodenoscopy (EGD) History of colonoscopy Hx laparoscopic cholecystectomy 06/07/2013 Hx of prostatectomy Social History Alcohol intake: never Substance/Drug Use: never Household members: spouse Vitals/I&O/Wt Last Vital Signs Temp 98.9 F 02/11/25 15:19 Pulse 71 02/11/25 17:00 Resp 14 02/11/25 15:19 BP 114/64 02/11/25 17:00 Pulse Ox 94 02/11/25 17:00 O2 Del Method Room Air 02/11/25 17:00 02/11/25 02/11/25 02/11/25 06:59 14:59 22:59 Intake Total 1000 / 1000 Balance 1000 / 1000 Weight last 48 hrs Weight 81.647 kg Physical Exam 2 Narrative: General: No acute distress, Sleeping but wakes up, AO x 3 on waking up, sick appearing, tired appearing, pallor present HEENT: PERRLA, pupils bilaterally equal and reactive Chest: Normal vesicular breath sounds, no added sounds, equal good air entry bilaterally CVS: S1-S2 regular, no murmurs, no tachycardia, no gallops, no rubs Abdomen: Soft, nontender, no organomegaly, bowel sounds present Neuro: No focal deficits, no facial deformity, AO x3, power 5/5 in all limbs Data 02/12/25 06:20 02/12/25 06:20 A&P Assessment and plan (1) Generalized weakness: Unknown cause. Can be multifactorial. So far patient denies any concerns for active infection. Did have episode of vomiting on Tuesday. Could be in setting of new chemotherapy medication started within the last 2 weeks including cyclophosphamide, weekly immunotherapy. Could be in setting of anemia along with acute on chronic hyponatremia Check blood culture, MRSA swab, respiratory viral panel, random cortisol level stat and 4 AM. Physical therapy. Monitor blood sugars. Could be in setting of anemia. Anemia seems to be chronic. Check iron panel, vitamin B12 and folate levels. Empirically start on IV vancomycin and Zosyn as per creatinine clearance. De- escalate as per culture sensitivities. If MRSA swab negative will discontinue vancomycin. N.p.o. except meds for now. Speech evaluation. Advance diet as per speech evaluation going forward. If needed will plan for modified barium swallow. (2) Encephalopathy acute: (3) Lethargy: (4) ESRD (end stage renal disease): On hemodialysis Tuesday, Tuesday, Tuesday. Last dialysis on Tuesday. Nephrology consulted. (5) Multiple myeloma: Recently started on cyclophosphamide, immunotherapy and weekly Decadron. Lethargy could be in setting of new chemotherapy. Will confirm with oncology team. (6) Uremia of renal origin: (7) Vomiting: Does have history of chronic constipation. CT abdomen pelvis without contrast. Zofran as needed, Protonix daily. If concern for constipation will plan for aggressive bowel regimen. (8) Chronic idiopathic constipation: (9) Hyponatremia: Continue to monitor daily. Plan for dialysis as per nephrology team. If not improving can start on oral salt tablets. Plan Hypotension: Found to have systolic of 80 mmHg on presentation. Hold antihypertensive. Maintain mean blood pressure of 65. If needed can start on Levophed. For now start on midodrine 10 mg 3 times daily. Cortisol level as above. CODE STATUS: Discussed with patient and family at bedside. with the DPOA. Full code. Renal dialysis diet the patient is able to tolerate otherwise n.p.o. except meds. Protonix OPD prophylaxis Heparin 5000 every 12 hourly for DVT prophylaxis. PDMP PDMP Reviewed: Not Reviewed Attestations 2 Medical Necessity Statement*: Admission for more than 2 midnights for management of lethargy, altered mental status, uremia and hyponatremia, hypotension in a patient with new diagnosis of incisional disease on hemodialysis, multiple myeloma Diagnoses Generalized weakness R53.1 Encephalopathy acute G93.40 Lethargy R53.83 ESRD (end stage renal disease) N18.6 Multiple myeloma not having achieved remission C90.00 Multiple myeloma remission status: not in remission Uremia of renal origin N19 Vomiting R11.10 Chronic idiopathic constipation K59.04 Hyponatremia E87.1
--- NOTE | 2025-02-11 17:57 | PM.CONSULT ---
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 The patient was diagnosed with anemia and acute kidney injury approximately 6 weeks ago had endoscopy in November ERCP in September 2013. Recent endoscopy in November 2024 showed Zenker's diverticulum colonoscopy had a transverse polyp. Patient was discharged with outpatient follow-up where he was diagnosed with the IgG lambda myeloma. He was admitted to [facility] from January 24 through January 31, 2025. He had a bone marrow biopsy in January 25 showing normocellular marrow with 38% monoclonal plasma cells lambda restricted the patient was treated with dexamethasone and initiated on hemodialysis on January 28, 2025. The patient is being treated with CyBorD weekly chemo from 01/30/25 - (weekly Cytoxan 300 Mg/M2, bortezomib 1.5 Mg/M2, Dex 40 mg oral) The patient now follows with Dr. Nadja Han of the oncology service. Patient has been to the hospital on Tuesday, February 10 and today with nausea vomiting weakness lethargy and confusion. The patient is being admitted for workup of possible infection or myeloma related disease. Renal was called for ESRD treatment. Review of Systems Narrative: Weakness lethargy headaches confusion nausea vomiting poor appetite not eating and diarrhea easy bruising. Medications/Allergies Home Medications ?Medication ?Instructions ?Recorded ?Confirmed ?Last Taken ?Type albuterol sulfate 90 mcg/actuation 1 puff inhalation QID PRN 11/05/24 02/11/25 Unknown History aerosol inhaler Shortness Of Breath levothyroxine 125 mcg tablet 125 mcg PO DAILY 11/05/24 02/11/25 02/10/25 History (Levo-T) ferrous sulfate 325 mg (65 mg 325 mg PO DAILY 12/29/24 02/11/25 02/08/25 History iron) tablet polyethylene glycol 3350 17 17 g PO DAILY PRN Constipation 12/29/24 02/11/25 Unknown History gram/dose oral powder (Miralax) vit C 250 mg-vit E 90 mg-zinc 40 1 tab PO BID 12/29/24 02/11/25 02/08/25 History mg-copper 1 [id number]-dptrsv-fwrgqx capsule (PreserVision AREDS-2) cyanocobalamin (vitamin B-12) 100 100 mcg PO DAILY 02/06/25 02/11/25 Unknown History mcg tablet famotidine 20 mg tablet (Acid 20 mg PO BID 02/06/25 02/11/25 02/08/25 History Manager Of Clinical (famotidine)) cyclophosphamide 50 mg tablet See Rx Instructions .Route .COMPLEX 02/09/25 02/11/25 02/08/25 History dexamethasone 20 mg tablet See Rx Instructions .Route .COMPLEX 02/09/25 02/11/25 02/08/25 History diphenhydramine HCl 25 mg capsule 25 mg PO TID PRN Allergic Reaction 02/09/25 02/11/25 Unknown History (Benadryl) ondansetron 4 mg disintegrating 4 mg PO Q6H PRN nausea and 02/09/25 02/11/25 Unknown Rx tablet vomiting #14 tabs sucralfate 1 gram tablet 1 g PO BID 02/09/25 02/11/25 02/08/25 History Allergies Allergy/AdvReac Type Severity Reaction Status Date / Time grass pollen Allergy Unknown Verified 02/06/25 13:42 house dust Allergy Unknown Verified 02/06/25 13:42 mold Allergy Unknown Verified 02/06/25 13:42 grass oil Allergy Unknown Uncoded 02/06/25 13:42 sycamore tree Allergy Unknown Uncoded 02/06/25 13:42 PFSH Acute PFSH: Medical History Multiple myeloma GERD (gastroesophageal reflux disease) Anemia History of colon polyps Hx of echocardiogram 03/22/2024 Surgical History History of esophagogastroduodenoscopy (EGD) History of colonoscopy Hx laparoscopic cholecystectomy 06/07/2013 Hx of prostatectomy Social History Alcohol intake: never Substance/Drug Use: never Household members: spouse Vitals/I&O/Wt Last Vital Signs Temp 98.9 F 02/11/25 15:19 Pulse 71 02/11/25 17:00 Resp 14 02/11/25 15:19 BP 114/64 02/11/25 17:00 Pulse Ox 94 02/11/25 17:00 O2 Del Method Room Air 02/11/25 17:00 02/11/25 02/11/25 02/11/25 06:59 14:59 22:59 Intake Total 1000 / 1000 Balance 1000 / 1000 Weight last 48 hrs Weight 81.647 kg Physical Exam Narrative: Elderly man in bed confused no apparent respiratory distress. Vital signs noted satting 94 percent on room air. HEENT normocephalic atraumatic. Neck is supple Lungs good air movement bilaterally Heart regular positive S1-S2 Abdomen positive bowel sounds. Extremities 1+ edema. Neuro lethargic awake responsive moves follow commands. Anterior chest wall permacath. Data 02/11/25 15:24 02/11/25 15:24 A&P Assessment and plan (1) ESRD (end stage renal disease): 84-year-old man with recent acute kidney injury in December 2024 and anemia. 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 Patient has underlying history of prostate cancer 24 years ago and status post prostatectomy. The patient has known hypothyroidism. The patient oncological has been started with CyBorD weekly chemotherapy which includes Cytoxan 300 mg/m? dexamethasone 40 mg daily andbortezomib. The patient was also recently started on hemodialysis 3 times a week. The patient now here with significant weakness. 1. 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 The patient is on dialysis thrice weekly. However potassium is 3.7 bicarbonate 26 and BUN is only 51. As patient is weak we will give IV fluids tonight. Will check TSH. Will hold on dialysis tonight and plan for dialysis in the morning. Follow-up lactic acid. 2. hypothyroidism on levothyroxine TSH is pending. On December 31 she had a normal TSH. 3. Altered mental status on chemotherapy with permacath. Please panculture and look for possible infection. Also send urinalysis and culture Patient was seen examined using A/V equipment with the aid of a nurse. The patient and his consented telehealth and hemodialysis. Plan Blood cultures urinalysis and culture. Plan on hemodialysis tomorrow PDMP PDMP Reviewed: Not [facility]ed [facility] Statement: Altered mental status renal failure, myeloma, myeloma kidney Time Spent in Patient Care: Greater than 35 minutes (>than 50% of time spent in counselling and/or direct pt care on unit). Coding Level of Care Code Acute Code for Chg Fwd Diagnoses ESRD (end stage renal disease) N18.6
--- NOTE | 2025-02-11 18:11 | CTR_ITS ---
PROCEDURE INFORMATION: Exam: CT Chest Without Contrast; Diagnostic Exam date and time: 02/11/2025 8:08 PM Age: 84 years old Clinical indication: Other: Ams/ ckd/ multiple myeloma TECHNIQUE: Imaging protocol: Diagnostic computed tomography of the chest without contrast. Radiation optimization: All CT scans at this facility use at least one of these dose optimization techniques: automated exposure control; mA and/or kV adjustment per patient size (includes targeted exams where dose is matched to clinical indication); or iterative reconstruction. COMPARISON: CR XR chest 1V portable [id number] 02/11/2025 3:17 PM RADIATION DOSE METRICS: Total DLP (mGy-cm): 1082.68 FINDINGS: Tubes, catheters and devices: A right jugular dual lumen catheter is present with the tip at the junction of the superior vena cava and right atrium. Trachea: Unremarkable. Lungs: There is bilateral lower lobe consolidation, left greater than right, suspicious for bilateral lower lobe pneumonia. Pleural spaces: There are small bilateral pleural effusions. No pneumothorax. Heart: Normal in size. No significant pericardial effusion. Coronary arteries: Moderate atherosclerotic calcification. Mediastinal space: No pathologically enlarged lymph nodes. Lymph nodes: Unremarkable. No enlarged lymph nodes. Vasculature: The thoracic aorta is normal in caliber. Minimal atherosclerotic calcification. No aortic aneurysm. Bones/joints: There is diffuse osteopenia. No acute fracture is detected. Diffuse degenerative changes are noted. Soft tissues: Unremarkable. Other findings: None. PROCEDURE INFORMATION: Exam: CT Abdomen And Pelvis Without Contrast Exam date and time: 02/11/2025 8:08 PM Age: 84 years old Clinical indication: Other: Ams/ ckd/ multiple myeloma TECHNIQUE: Imaging protocol: Computed tomography of the abdomen and pelvis without contrast. Radiation optimization: All CT scans at this facility use at least one of these dose optimization techniques: automated exposure control; mA and/or kV adjustment per patient size (includes targeted exams where dose is matched to clinical indication); or iterative reconstruction. COMPARISON: US renal BI* [id number] 12/28/2024 8:36 AM RADIATION DOSE METRICS: Total DLP (mGy-cm): 1082.68 FINDINGS: Lungs: As above. Liver: Unremarkable. Gallbladder and biliary ducts: Surgically absent. No significant biliary ductal dilatation. Pancreas: Mild fatty atrophy. Spleen: Unremarkable. Adrenal glands: Unremarkable. Kidneys and ureters: Unremarkable. No significant hydronephrosis. Stomach and bowel: There is a iqyrc-jj-[id number] sized hiatal hernia. There is a copious amount of fecal material in the rectum. There appears to be circumferential thickening of the inferior rectal wall. There is a moderate amount of fecal material throughout the remainder of the colon.There is no significant bowel dilatation or evidence for obstruction. Appendix: No evidence of appendicitis. Intraperitoneal space: No significant free fluid. No free air. There are surgical clips in the anterior right mid abdomen and within the pelvis bilaterally. Vasculature: The abdominal aorta is normal in caliber. No abdominal aortic aneurysm. There is mild atherosclerotic calcification. Lymph nodes: Unremarkable. No enlarged lymph nodes. Urinary bladder: Unremarkable as visualized. Reproductive: Unremarkable as visualized. Bones/joints: Intact. No acute fracture. There is diffuse osteopenia with degenerative changes throughout the lumbar spine. Soft tissues: Unremarkable. CT/[place] [id number] IMPRESSION: 1. Bilateral lower lobe consolidation suspicious for pneumonia. 2. Small bilateral pleural effusions. 3. Moderate coronary arterial calcification. 4. Right jugular dual lumen catheter in place. 5. Diffuse osteopenia. No acute fracture detected. IMPRESSION: 1. Copious amount of fecal material within the rectum with circumferential thickening of the wall of the inferior rectum. This could be due to incomplete distension. However, an inflammatory or potentially neoplastic process cannot be excluded. Please correlate clinically. 2. Moderate amount of fecal material throughout the remainder of the colon. No significant bowel dilatation or evidence for obstruction. 3. Dfvhw-wg-rvumfjit sized hiatal hernia. 4. Diffuse osteopenia. No acute fracture detected.
[2025-02-11 18:17] LABS: Lactic Sepsis W/Reflex 1.2 mmol/L (0.5-2.2)
[2025-02-11 18:28] LABS: Procalcitonin 0.84 ng/mL (0-0.5); Thyroid Stimulating Hormone 2.19 uIU/mL (0.27-4.20)
[2025-02-11 18:41] LABS: Ammonia 12 umol/L (16-60)
[2025-02-11 18:48] LABS: Calcium 7.3 mg/dL (8.5-10.5)
[2025-02-11 18:56] LABS: Parathyroid Hormone 103.2 pg/mL (15-65)
[2025-02-11 19:23] LABS: Cortisol Random 1.77 ug/dL (2.47-19.5)
[2025-02-11 19:39] LABS: Hepatitis B Surface AB < 3.5 (11.5-1000); Hepatitis B Surface Antigen Non-Reactive (Nonreactive)
[2025-02-11 20:17] LABS: Hepatitis C Virus Antibody Non-Reactive (Nonreactive)
[2025-02-11 20:33] LABS: Adenovirus Not Detected (NOT DETECT); Chlamydia Pneumoniae Not Detected (NOT DETECT); Coronavirus 229E,HKU1,NL63,OC4 Not Detected (NOT DETECT); Human Metapneumovirus Not Detected (NOT DETECT); Human Rhinovirus/Enterovirus Not Detected (NOT DETECT); Influenza A Not Detected (NOT DETECT); Influenza A H1 Not Detected (NOT DETECT); Influenza A H1-2009 Not Detected (NOT DETECT); Influenza A H3 Not Detected (NOT DETECT); Influenza B Not Detected (NOT DETECT); Mycoplasma Pneumoniae Not Detected (NOT DETECT); Parainfluenza Virus Type 1 Not Detected (NOT DETECT); Parainfluenza Virus Type 2 Not Detected (NOT DETECT); Parainfluenza Virus Type 3 Not Detected (NOT DETECT); Parainfluenza Virus Type 4 Not Detected (NOT DETECT); Respiratory Syncytial Virus A Not Detected (NOT DETECT); Respiratory Syncytial Virus B Not Detected (NOT DETECT); SARS-COV-2 Not Detected (NOT DETECT)
[2025-02-11] MEDS: midodrine 5 mg TABLET 10 MG PO (22:29)
--- NOTE | 2025-02-11 22:59 | PC.NURSE ---
pt has coughing and difficulty swallowing water for [employer]. attempted to give pills with apple sauce and pt had similar difficulties. contacting md now for further orders.
[2025-02-11 23:29] LABS: Estmated Average Glucose 105; Hemoglobin A1C 5.3 % (4.0-6.0)
--- NOTE | 2025-02-11 23:29 | P.MISC_ITS ---
Miscellaneous Note Note: The night ED nurse taking care of the patient at night states that she attempted to give him his 9pm medications with water, and he began to cough and choke. SHe attempted to give him the medications with applesauce and noted that he also coughed and choked; although he was finally able to take the medications. Given concerns for aspiration, she held further medication administration including lactulose. The patient's night nurse states that the patient states that his coughing and choking is due to his throat still feeling swollen. Agree with holding further po meds tonight. Will order swallow study. Per ED nurse, a UA was ordered, and the patient stated that he no longer prod uces urine. I have advised the nurse to do an official bladder scan.
[2025-02-11 23:33] LABS: Lactic Sepsis W/Reflex 0.9 mmol/L (0.5-2.2)
[2025-02-11 23:35] LABS: Iron 50 ug/dL (59-158); Total Iron Binding Capacity 119 mcg/dl; Unsaturated Iron Binding 69 ug/dL (112-347)
[2025-02-11 23:52] LABS: Vitamin B12 642 pg/mL (232-1245)
[2025-02-11] MEDS: pantoprazole 40 mg SDV IVP (23:54)
[2025-02-11] MEDS: heparin 5,000 unit/mL INJ 1 mL 5000 UNIT SUBCUT (23:55)
[2025-02-11] MEDS: vancomycin 1,500 MG/300 ML PIGGYBACK 200 MG IV (23:59)
[2025-02-12] VITALS (7 sets, daily range): BP systolic 90–140; BP diastolic 57–87; PULSE 76–93; RESP 16–18; TEMP 37.1–37.5; O2SAT 93–98; BMI 24.3
--- NOTE | 2025-02-12 00:06 | PC.NURSE ---
md aware of pt difficulty swallowing and decision to hold PO meds.
[2025-02-12] MEDS: piperacillin-tazobactam 3.375 GM in sodium chloride 0.9% (plus) 50 ML IV ×2 (02:48→14:08)
[2025-02-12 06:35] LABS: Basophils % 0.2 %; Eosinophils # 0.1 10^3/uL (0.0-0.8); Eosinophils % 1.8 %; Hematocrit 23.7 % (37-53); Lymphocytes # 0.8 10^3/uL (0.8-4.8); Lymphocytes % 17.3 %; Mean Corpuscular HGB Conc 32.1 g/dL (30-55); Mean Corpuscular Hemoglobin 29.3 pg (27-33); Mean Corpuscular Volume 91.5 fl (82-101); Mean Platelet Volume 10.1 fL (7.4-10.4); Monocytes # 0.3 10^3/uL (0.2-0.9); Monocytes % 7.1 %; Neutrophils # 3.16 10^3/uL (1.8-7.7); Neutrophils % 72.9 %; Nucleated Red Blood Cells % 0 %; Platelet Count 123 10^3/cmm (157-399); Red Blood Count 2.59 10^6/uL (3.85-5.65); Red Cell Distribution Width 14.4 % (12.1-15.1); White Blood Count 4.34 10^3/uL (3.29-11.43)
[2025-02-12 06:58] LABS: Alanine Aminotransferase 13 U/L (0-41); Albumin Level 2.1 g/dL (3.5-5.2); Alkaline Phosphatase 186 U/L (40-130); Anion Gap 18.2 (5-19); Aspartate Amino Transferase 18 U/L (0-40); Blood Urea Nitrogen 53 mg/dL (8-23); Calcium 7.6 mg/dL (8.5-10.5); Carbon Dioxide 24 mmol/L (22-29); Chloride 93 mmol/L (98-107); Cortisol Random 1.99 ug/dL (2.47-19.5); Creatinine Clr Calc Pharmacy 6.0115; Globulin 6.3 g/dL (1.3-4.6); Glucose 64 mg/dL (65-115); Osmolality Calculated 284 mOsm/kg (285-295); Phosphorus 4.1 mg/dL (2.5-4.5); Potassium 4.2 mmol/L (3.5-5.1); Sodium 131 mmol/L (136-145); Total Bilirubin 0.8 mg/dL (0.15-1.2); Total Protein 8.4 g/dL (6.6-8.7)
[2025-02-12 07:09] LABS: Chol HDL Ratio 4.04 mg/dL (1.0-5.00); Cholesterol 93 mg/dL (0-200); HDL Cholesterol 23 mg/dL (60-100); LDL Cholesterol Calculated 44 mg/dL (50-129); LDL HDL Ratio 1.91 RATIO (0.00-3.22); Magnesium 1.7 mg/dL (1.7-2.3); Triglycerides 131 mg/dL (0-150); Uric Acid 5.8 mg/dL (3.4-7.0)
[2025-02-12 07:22] LABS: Calcium 7.4 mg/dL (8.5-10.5)
[2025-02-12 07:27] LABS: Iron 42 ug/dL (59-158); Percent Saturation 37.8 % (20-50); Total Iron Binding Capacity 111 mcg/dl; Unsaturated Iron Binding 69 ug/dL (112-347)
[2025-02-12 07:38] LABS: Folate Level 17.1 ng/mL (4.5-32.2); Parathyroid Hormone 112.1 pg/mL (15-65)
[2025-02-12 07:44] LABS: 25 Hydroxy Vitamin D 6 ng/mL (30-100)
[2025-02-12 07:46] LABS: Ferritin 2650 ng/mL (30-400)
[2025-02-12 08:03] LABS: Glucose Point of Care 60 mg/dL (70-110)
[2025-02-12] MEDS: dextrose 10% 250 ML 1000 ML IV ×2 (08:11→09:23)
--- NOTE | 2025-02-12 08:12 | PC.NURSE ---
Attempted oral meds per Dr. worley. PT is unable to swallow water at this time.
[2025-02-12 08:46] LABS: Glucose Point of Care 83 mg/dL (70-110)
[2025-02-12] MEDS: hydrocortisone 10 mg Tablet PO (09:18)
--- NOTE | 2025-02-12 09:24 | PC.NURSE ---
PT was able to swallow crushed cortef tab with yogurt. PT had trouble swallowing and does not feel like he can take his other oral medications. Physician notified.
[2025-02-12] MEDS: ondansetron 2 mg/ML SDV 2 mL 4 MG IVP (09:25)
--- NOTE | 2025-02-12 09:29 | PC.NURSE ---
PT taken to dialysis @09
--- NOTE | 2025-02-12 10:07 | P.PN_ITS ---
Subjective 2 Subjective: Patient is weak and has dysphagia has difficulty swallowing. Nausea not eating well. No chest pain no diarrhea. No urinary symptoms no shortness of breath at rest. Medications: Reviewed: Yes Medication Review Details: Current Medications Acetaminophen (Acetaminophen 325 Mg Tablet) 650 mg PO Q6H PRN PRN Reason: Mild/Mod Pain Or Temp >/= 101 Cyanocobalamin (Cyanocobalamin 1,000 Mcg Tablet) 1,000 mcg PO DAILY [facility] On Hold: 02/12/25 09:00 Comment: changed to wrong strength Docusate Sodium (Docusate Sodium 100 Mg Capsule) 100 mg PO BID [facility] Last Admin: 02/12/25 09:46 Dose: Not Given Ferrous Sulfate (Ferrous Sulfate Ec 325 Mg Tablet) 325 mg PO DAILY [facility] Last Admin: 02/12/25 09:46 Dose: Not Given Glucagon (Glucagon 1 Mg/Ml Kit 1 Ml) 1 mg IM ONCE PRN; Protocol PRN Reason: Adult Acute Hypoglycemia Nursing Prot. Heparin Sodium (Porcine) (Heparin 5,000 Unit/Ml Inj 1 Ml) 5,000 unit SUBCUT Q12H [facility] Last Admin: 02/11/25 23:55 Dose: 5,000 unit Hydrocortisone (Hydrocortisone 10 Mg Tablet) 10 mg PO DAILY [facility] Last Admin: 02/12/25 09:18 Dose: 10 mg Piperacillin Sod/Tazobactam (Sod 3.375 gm/ Sodium Chloride) 50 mls @ 12.5 mls/hr IV Q12H [facility] Last Infusion: 02/12/25 09:47 Dose: Infused Dextrose (D5w) 500 mls @ 0 mls/hr IV ONCE PRN; Protocol PRN Reason: Adult Acute Hypoglycemia Prot Dextrose (D10w) 125 mls @ 750 mls/hr IV PRN PRN; Protocol PRN Reason: Adult Acute Hypoglycemia Nursing Protocol Albumin Human (Albumin) 12.5 gm in 250 mls @ 300 mls/hr IV ONCE ONE Stop: 02/12/25 10:49 Lactulose (Lactulose Oral Liq 20 Gm/30 Ml Udc) 10 gm PO DAILY PRN; Protocol PRN Reason: Constipation (see protocol) Levothyroxine Sodium (Levothyroxine 125 Mcg Tablet) 125 mcg PO QAM [facility] Last Admin: 02/12/25 08:12 Dose: Not Given Magnesium Hydroxide (Magnesium Hydroxide 30 Ml Udc) 30 ml PO DAILY PRN; Protocol PRN Reason: Constipation (see protocol) Midodrine (Midodrine 5 Mg Tablet) 10 mg PO TID [facility] Last Admin: 02/12/25 09:46 Dose: Not Given Morphine Sulfate (Morphine 4 Mg/Ml Sdv 1 Ml) 2 mg IVP Q4H PRN PRN Reason: SEVERE PAIN Multivitamins (C-Uelokyi-Ngtwsnq C Tablet) 1 each PO DAILY [facility] Last Admin: 02/12/25 09:47 Dose: Not Given Ondansetron HCl (Ondansetron 2 Mg/Ml Sdv 2 Ml) 4 mg IVP Q6H PRN PRN Reason: vomiting, or N/V if npo Last Admin: 02/12/25 09:25 Dose: 4 mg Pantoprazole Sodium (Pantoprazole 40 Mg Sdv) 40 mg IVP BEDTIME [facility] Last Admin: 02/11/25 23:54 Dose: 40 mg Sucralfate (Sucralfate 1 Gm Tablet) 1 gm PO BID [facility] Last Admin: 02/12/25 00:01 Dose: Not Given Vancomycin HCl (Vancomycin 1,000 Mg Sdv (Pharmacy Mix)) 0 mg XX PRN PRN PRN Reason: Pharmacy to Dose Vitals/I&O/Wt Last Vital Signs Temp 98.9 F 02/11/25 15:19 Pulse 76 02/12/25 08:00 Resp 16 02/12/25 08:00 BP 108/67 02/12/25 08:00 Pulse Ox 94 02/12/25 08:00 O2 Del Method Room Air 02/12/25 08:00 FiO2 21 02/11/25 23:23 02/11/25 02/12/25 02/12/25 22:59 06:59 14:59 Intake Total 1000 / 1000 300 / 300 Balance 1000 / 1000 300 / 300 Weight last 48 hrs Weight 81.647 kg Physical Exam 2 Narrative: Elderly man in bed, awake, alert, no apparent respiratory distress. Vital signs noted saturating 94 percent on room air. HEENT normocephalic atraumatic. Neck is supple Lungs good air movement bilaterally Heart regular positive S1-S2 Abdomen positive bowel sounds. Extremities 1+ edema. Neuro more awake and alert and follows commands Anterior chest wall permacath. Data 02/12/25 06:20 02/12/25 06:20 Micro: Microbiology 02/11/25 19:23 Blood Culture - Preliminary Blood SPECIMEN COLLECTED 02/11/25 18:42 Blood Culture - Preliminary Blood SPECIMEN COLLECTED A&P Assessment and plan (1) ESRD (end stage renal disease): 84-year-old man with recent acute kidney injury in December 2024 and anemia. 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 Patient has underlying history of prostate cancer 24 years ago and status post prostatectomy. The patient has known hypothyroidism. The patient oncological has been started with CyBorD weekly chemotherapy which includes Cytoxan 300 mg/m? dexamethasone 40 mg daily andbortezomib. The patient was also recently started on hemodialysis 3 times a week. The patient now here with significant weakness. 1. 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 The patient is on dialysis thrice weekly. rising BUN and cr. he missed HD yesterdya- plan for dialysis today -monitor for any renal recovery w/ chemo 2. hypothyroidism on levothyroxine On December 31 she had a normal TSH. 3. hyponatremia and hypoglycemia and cortiaol level at 1.99- he is on solucortef 4. 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 high ferritin. can give EPO 5. cant swallow- consider ENT or GI evlauation. Please examine his mouth for thrush 6. concern for infection-he is on vanco. please follow levels and keep under 19 7. hypoglycemia- hopefully should mimprove w/ dialysis. try to stop D10 soon as it can lower his serum sodium Patient was seen examined using A/V equipment with the aid of a nurse. The patient and his consented telehealth and hemodialysis. Plan as above PDMP PDMP Reviewed: Not Reviewed Attestations 2 Medical Necessity Statement*: ESRD, hypoglycemic, hyponatremia Time Spent in Patient Care: Greater than 35 minutes (>than 50% of time spent in counselling and/or direct pt care on unit) . Coding Level of Care Code Acute Code for g Fwd Diagnoses ESRD (end stage renal disease) N18.6
[2025-02-12 10:10] LABS: Glucose Point of Care 100 mg/dL (70-110)
--- NOTE | 2025-02-12 13:11 | P.PN_ITS ---
Subjective 2 Subjective: Overnight patient remained in the ER awaiting bed. Today morning seen while getting dialysis. Patient is awake and alert. Overnight blood pressure was soft but improved after midodrine. Patient remains weak. Unable to tolerate medications mostly orally. Vitals/I&O/Wt Last Vital Signs Temp 99.1 F 02/12/25 12:30 Pulse 89 02/12/25 12:30 Resp 18 02/12/25 12:30 BP 133/75 02/12/25 12:30 Pulse Ox 94 02/12/25 08:00 O2 Del Method Room Air 02/12/25 08:00 FiO2 21 02/11/25 23:23 02/11/25 02/12/25 02/12/25 22:59 06:59 14:59 Intake Total 1000 / 1000 1100 / 1100 Output Total 500 / 500 Balance 1000 / 1000 600 / 600 Weight last 48 hrs Weight 0 g Weight 81.647 kg Physical Exam 2 Narrative: General: No acute distress, Sleeping but wakes up, AO x 3 on waking up, sick appearing, tired appearing, pallor present HEENT: PERRLA, pupils bilaterally equal and reactive Chest: Normal vesicular breath sounds, no added sounds, equal good air entry bilaterally CVS: S1-S2 regular, no murmurs, no tachycardia, no gallops, no rubs Abdomen: Soft, nontender, no organomegaly, bowel sounds present Neuro: No focal deficits, no facial deformity, AO x3, power 5/5 in all limbs Data 02/12/25 06:20 02/12/25 06:20 Micro: Microbiology 02/11/25 19:23 Blood Culture - Preliminary Blood SPECIMEN COLLECTED 02/11/25 18:42 Blood Culture - Preliminary Blood SPECIMEN COLLECTED A&P Assessment and plan (1) Generalized weakness: Can be multifactorial. Most likely a combination of new chemotherapy for multiple myeloma along with adrenal insufficiency and possible bilateral aspiration pneumonia. Also has hypoglycemia and hyponatremia. Follow-up blood culture, MRSA swab, negative respiratory viral panel. Hemoglobin stable. Appreciate iron panel, vitamin B12 and folate levels. Random cortisol level in the evening yesterday and today at 4 AM both recorded to be low. Concern for adrenal insufficiency. Physical therapy., random cortisol level stat and 4 AM. Physical therapy. Monitor blood sugars. (2) Encephalopathy acute: Acute metabolic encephalopathy (3) Aspiration pneumonia of both lower lobes: Seen on CT chest. Patient remains on room air. MRSA swab. IV vancomycin and Zosyn for now. If MRSA swab negative can discontinue vancomycin. Antibiotic as per creatinine clearance. Follow-up blood culture. N.p.o. for now except medications. Advance as per speech evaluation. (4) Adrenal insufficiency: Cortisol level found to be low. Start on IV hydrocortisone 100 mg twice daily. Will plan to transition to dexamethasone/hydrocortisone on discharge. (5) Lethargy: (6) ESRD (end stage renal disease): On hemodialysis Tuesday, Tuesday, Tuesday. Last dialysis on Tuesday. Nephrology consulted. (7) Multiple myeloma: Recently started on cyclophosphamide, immunotherapy and weekly Decadron. Lethargy could be in setting of new chemotherapy. (8) Uremia of renal origin: (9) Vomiting: Zofran as needed, Protonix daily. (10) Chronic idiopathic constipation: Does have history of chronic constipation. CT abdomen pelvis without contrast. Aggressive bowel regimen. Enema as needed. (11) Hyponatremia: Continue to monitor daily. Plan for dialysis as per nephrology team. If not improving can start on oral salt tablets. Plan Hypotension: Most likely combination of acute illness along with adrenal insufficiency. Steroid as above. Midodrine 10 mg 3 times daily. Goal blood pressure less than 140/90 mmHg with mean over 65. CODE STATUS: Discussed with patient and family at bedside. with the DPOA. Full code. Renal dialysis diet the patient is able to tolerate otherwise n.p.o. except meds. Protonix OPD prophylaxis Heparin 5000 every 12 hourly for DVT prophylaxis. PDMP PDMP Reviewed: Not Reviewed Attestations 2 Medical Necessity Statement*: Requires further hospitalization for management of weakness, generalized lethargy in setting of renal insufficiency, bilateral lower lobe pneumonia, aspiration in a patient with recent end-stage renal disease on hemodialysis, multiple myeloma on new chemotherapy Diagnoses Generalized weakness R53.1 Encephalopathy acute G93.40 Aspiration pneumonia of both lower lobes J69.0 Adrenal insufficiency E27.40 Lethargy R53.83 ESRD (end stage renal disease) N18.6 Multiple myeloma not having achieved remission C90.00 Multiple myeloma remission status: not in remission Uremia of renal origin N19 Vomiting R11.10 Chronic idiopathic constipation K59.04 Hyponatremia E87.1
[2025-02-12 13:35] LABS: Glucose Point of Care 71 mg/dL (70-110)
[2025-02-12] MEDS: hydrocortisone 100 mg/2 mL SDV IVP (14:06)
[2025-02-12] MEDS: midodrine 5 mg TABLET 10 MG PO ×2 (14:06→20:20)
[2025-02-12] MEDS: heparin 5,000 unit/mL INJ 1 mL 5000 UNIT SUBCUT ×2 (14:07→20:20)
[2025-02-12 15:25] LABS: Glucose Point of Care 93 mg/dL (70-110)
[2025-02-12 15:51] LABS: Bacillus cereus group Not Detected (NOT DETECT); Bacillus subtillis group Not Detected (NOT DETECT); Corynebacterium Not Detected (NOT DETECT); Cutibacterium acnes (P.acnes) Not Detected (NOT DETECT); Enterococcus Not Detected (NOT DETECT); Enterococcus faecalis Not Detected (NOT DETECT); Enterococcus faecium Not Detected (NOT DETECT); Lactobacillus species Not Detected (NOT DETECT); Listeria Not Detected (NOT DETECT); Listeria monocytogenes Not Detected (NOT DETECT); Micrococcus Not Detected (NOT DETECT); Pan Candida Not Detected (NOT DETECT); Pan Gram-Negative Not Detected (NOT DETECT); Staphylococcus epidermidis Not Detected (NOT DETECT); Staphylococcus lugdunensis Not Detected (NOT DETECT); Staphylococcus species Detected (NOT DETECT); Streptococcus agalactiae Not Detected (NOT DETECT); Streptococcus anginosus group Not Detected (NOT DETECT); Streptococcus pneumoniae Not Detected (NOT DETECT); Streptococcus pyogenes Not Detected (NOT DETECT); Streptococcus species Not Detected (NOT DETECT); mecA Not Detected (NOT DETECT); mecC Not Detected (NOT DETECT)
[2025-02-12] MEDS: dextrose 10% 1,000 ML 50 ML IV (16:05)
[2025-02-12 16:30] LABS: MRSA PCR OZH (swab) NOT DETECTED (Negative)
[2025-02-12 16:33] LABS: Glucose Point of Care 113 mg/dL (70-110)
[2025-02-12] MEDS: pantoprazole 40 mg SDV IVP (20:19)
[2025-02-12 20:24] LABS: Glucose Point of Care 150 mg/dL (70-110)
[2025-02-12 23:16] LABS: Vancomycin Trough 14.5 ug/mL (10-15)
[2025-02-13] VITALS (15 sets, daily range): BP systolic 85–138; BP diastolic 51–81; PULSE 40–80; RESP 15–18; TEMP 36.3–36.6; O2SAT 93–98
[2025-02-13 00:34] LABS: Glucose Point of Care 151 mg/dL (70-110)
[2025-02-13] MEDS: hydrocortisone 100 mg/2 mL SDV IVP ×3 (00:46→23:25)
[2025-02-13] MEDS: piperacillin-tazobactam 3.375 GM in sodium chloride 0.9% (plus) 50 ML IV ×2 (00:46→14:46)
[2025-02-13 04:17] LABS: Basophils % 0.2 %; Lymphocytes # 0.2 10^3/uL (0.8-4.8); Lymphocytes % 4.6 %; Mean Corpuscular HGB Conc 32.2 g/dL (30-55); Mean Corpuscular Hemoglobin 29.3 pg (27-33); Mean Corpuscular Volume 91.1 fl (82-101); Mean Platelet Volume 10.5 fL (7.4-10.4); Monocytes # 0.2 10^3/uL (0.2-0.9); Neutrophils # 4.27 10^3/uL (1.8-7.7); Neutrophils % 89.9 %; Nucleated Red Blood Cells % 0 %; Platelet Count 165 10^3/cmm (157-399); Red Blood Count 2.25 10^6/uL (3.85-5.65); Red Cell Distribution Width 14.5 % (12.1-15.1); White Blood Count 4.75 10^3/uL (3.29-11.43)
[2025-02-13 04:28] LABS: Hematocrit 20.5 % (37-53)
[2025-02-13 04:36] LABS: Alanine Aminotransferase 10 U/L (0-41); Albumin Level 2.1 g/dL (3.5-5.2); Alkaline Phosphatase 155 U/L (40-130); Anion Gap 17.4 (5-19); Aspartate Amino Transferase 15 U/L (0-40); Blood Urea Nitrogen 34 mg/dL (8-23); Calcium 7.8 mg/dL (8.5-10.5); Carbon Dioxide 24 mmol/L (22-29); Chloride 94 mmol/L (98-107); Creatinine Clr Calc Pharmacy 9.0815; Globulin 5.8 g/dL (1.3-4.6); Glucose 143 mg/dL (65-115); Osmolality Calculated 282 mOsm/kg (285-295); Phosphorus 4.7 mg/dL (2.5-4.5); Potassium 4.4 mmol/L (3.5-5.1); Sodium 131 mmol/L (136-145); Total Bilirubin 0.4 mg/dL (0.15-1.2); Total Protein 7.9 g/dL (6.6-8.7)
[2025-02-13 04:38] LABS: Magnesium 1.8 mg/dL (1.7-2.3)
[2025-02-13 04:42] LABS: Glucose Point of Care 161 mg/dL (70-110)
[2025-02-13] MEDS: levothyroxine 125 mcg Tablet PO (05:14)
--- NOTE | 2025-02-13 07:29 | PHA.VACGOAL ---
Vancomycin Goal - Goal Vancomycin Goal:: 15-20 mg/L Vancomycin Indication:: Other - Therapy Day of therpy:: Day []of [] . Actual body weight (kg): 194 lb 6 oz - Data Labs: WBC 4.75 10^3/uL (3.29-11.43) 02/13/25 03:46 RBC 2.25 10^6/uL (3.85-5.65) L 02/13/25 03:46 Hgb 6.60 g/dL (11.27-16.99) L 02/13/25 03:46 Hct 20.5 % (37-53) L* 02/13/25 03:46 MCV 91.1 fl (82-101) 02/13/25 03:46 MCH 29.3 pg (27-33) 02/13/25 03:46 MCHC 32.2 g/dL (30-55) 02/13/25 03:46 RDW 14.5 % (12.1-15.1) 02/13/25 03:46 Sodium 131 mmol/L (136-145) L 02/13/25 03:46 Potassium 4.4 mmol/L (3.5-5.1) 02/13/25 03:46 Chloride 94 mmol/L (98-107) L 02/13/25 03:46 Carbon Dioxide 24 mmol/L (22-29) 02/13/25 03:46 Anion Gap 17.4 (5-19) 02/13/25 03:46 BUN 34 mg/dL (8-23) H 02/13/25 03:46 Creatinine 7.1 mg/dL (0.7-1.2) H* 02/13/25 03:46 GFR Calculation Not Reportable 02/13/25 03:46 Last dialysis session:: Last session (02/12) Treatment plan:: new consult Regimen:: PT WILL NEED DOSE AFTER NEXT DIALYSIS SESSION
--- NOTE | 2025-02-13 07:56 | ECG_ITS ---
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1940 Requested By: Babatunde Boykin Order Number: [id number] Reading MD: FADI MORILLO Measurements Intervals [place] Rate: 58 P: 35 VA: 257 QRS: -47 QRSD: 97 T: 48 QT: 488 QTc: 481 Interpretive Statements SINUS BRADYCARDIA WITH FIRST DEGREE AV BLOCK PATTERN CONSISTENT WITH PULMONARY DISEASE INFERIOR MYOCARDIAL INFARCTION , PROBABLY OLD [40+ ms Q WAVE AND/OR ST/T ABNORMALITY IN II/aVF] Compared to ECG 02/11/2025 15:39:29 Sinus rhythm no longer present Myocardial infarct finding still present Electronically Signed On 02-14-2025 23:32:20 CDT by FADI MORILLO [email or web address]
[2025-02-13] MEDS: sucralfate 1 gm Tablet PO ×2 (08:40→17:25)
[2025-02-13] MEDS: b-complex-vitamin c Tablet 1 EACH PO (08:40)
[2025-02-13] MEDS: midodrine 5 mg TABLET 10 MG PO ×3 (08:40→21:07)
[2025-02-13] MEDS: docusate sodium 100 mg Capsule PO ×2 (08:40→17:25)
[2025-02-13 09:16] LABS: Glucose Point of Care 183 mg/dL (70-110)
--- NOTE | 2025-02-13 09:56 | PM.PN ---
Subjective Subjective: feels better. no n/v/f/c/wright/d/leg pains. + headaches. dec trouble swallowing Medications: Reviewed: Yes Medication Review Details: Current Medications Acetaminophen (Acetaminophen 325 Mg Tablet) 650 mg PO Q6H PRN PRN Reason: Mild/Mod Pain Or Temp >/= 101 Cyanocobalamin (Cyanocobalamin 1,000 Mcg Tablet) 1,000 mcg PO DAILY [facility] On Hold: 02/12/25 09:00 Comment: changed to wrong strength Docusate Sodium (Docusate Sodium 100 Mg Capsule) 100 mg PO BID [facility] Last Admin: 02/13/25 08:40 Dose: 100 mg Glucagon (Glucagon 1 Mg/Ml Kit 1 Ml) 1 mg IM ONCE PRN; Protocol PRN Reason: Adult Acute Hypoglycemia Nursing Prot. Heparin Sodium (Porcine) (Heparin 5,000 Unit/Ml Inj 1 Ml) 5,000 unit SUBCUT Q12H [facility] Last Admin: 02/12/25 20:20 Dose: 5,000 unit Hydrocortisone Sodium Succinate (Hydrocortisone 100 Mg/2 Ml Sdv) 100 mg IVP Q12H [facility] Last Admin: 02/13/25 00:46 Dose: 100 mg Piperacillin Sod/Tazobactam (Sod 3.375 gm/ Sodium Chloride) 50 mls @ 12.5 mls/hr IV Q12H [facility] Last Infusion: 02/13/25 04:53 Dose: Infused Dextrose (D5w) 500 mls @ 0 mls/hr IV ONCE PRN; Protocol PRN Reason: Adult Acute Hypoglycemia Prot Dextrose (D10w) 125 mls @ 750 mls/hr IV PRN PRN; Protocol PRN Reason: Adult Acute Hypoglycemia Nursing Protocol Dextrose (D10w) 1,000 mls @ 50 mls/hr IV .Q20H [facility] Last Admin: 02/12/25 16:05 Dose: 50 mls/hr Lactulose (Lactulose Oral Liq 20 Gm/30 Ml Udc) 10 gm PO DAILY PRN; Protocol PRN Reason: Constipation (see protocol) Levothyroxine Sodium (Levothyroxine 125 Mcg Tablet) 125 mcg PO QAM [facility] Last Admin: 02/13/25 05:14 Dose: 125 mcg Magnesium Hydroxide (Magnesium Hydroxide 30 Ml Udc) 30 ml PO DAILY PRN; Protocol PRN Reason: Constipation (see protocol) Midodrine (Midodrine 5 Mg Tablet) 10 mg PO TID [facility] Last Admin: 02/13/25 08:40 Dose: 10 mg Morphine Sulfate (Morphine 4 Mg/Ml Sdv 1 Ml) 2 mg IVP Q4H PRN PRN Reason: SEVERE PAIN Multivitamins (V-Bczybsd-Tvfwebu C Tablet) 1 each PO DAILY [facility] Last Admin: 02/13/25 08:40 Dose: 1 each Ondansetron HCl (Ondansetron 2 Mg/Ml Sdv 2 Ml) 4 mg IVP Q6H PRN PRN Reason: vomiting, or N/V if npo Last Admin: 02/12/25 09:25 Dose: 4 mg Pantoprazole Sodium (Pantoprazole 40 Mg Sdv) 40 mg IVP BEDTIME [facility] Last Admin: 02/12/25 20:19 Dose: 40 mg Sodium Chloride (Sodium Chloride 0.9% 100 Ml Bag) 50 ml IV PRN PRN PRN Reason: Blood transfusion prime and flush Stop: 02/14/25 07:55 Sucralfate (Sucralfate 1 Gm Tablet) 1 gm PO BID [facility] Last Admin: 02/13/25 08:40 Dose: 1 gm Vancomycin HCl (Vancomycin 1,000 Mg Sdv (Pharmacy Mix)) 0 mg XX PRN PRN PRN Reason: Pharmacy to Dose Vitals/I&O/Wt Last Vital Signs Temp 97.5 F L 02/13/25 07:28 Pulse 55 L 02/13/25 07:28 Resp 15 02/13/25 07:28 BP 94/57 02/13/25 07:28 Pulse Ox 95 02/13/25 07:28 O2 Del Method Room Air 02/13/25 07:28 FiO2 21 02/11/25 23:23 02/12/25 02/13/25 02/13/25 22:59 06:59 14:59 Intake Total 300 / 1400 650 / 2050 296 / 296 Output Total 1200 / 1700 Balance 300 / 900 -550 / 350 296 / 296 Weight last 48 hrs Weight 88.167 kg Weight 88.178 kg Weight 0 g Weight 81.647 kg Physical Exam Narrative: Elderly man in bed, awake, alert, no apparent respiratory distress. Vital signs noted saturating 95 percent on room air. HEENT normocephalic atraumatic. Neck is supple Lungs good air movement bilaterally Heart regular positive S1-S2 Abdomen positive bowel sounds. Extremities no leg edema. Neuro more awake and alert and follows commands Anterior chest wall permacath. Data 02/13/25 03:46 02/13/25 03:46 Micro: Microbiology 02/11/25 18:42 Blood Culture - Preliminary Blood Staphylococcus species 02/13/25 03:46 Blood Culture - Preliminary Blood SPECIMEN COLLECTED 02/13/25 03:41 Blood Culture - Preliminary Blood SPECIMEN COLLECTED 02/11/25 19:23 Blood Culture - Preliminary Blood NEGATIVE TO DATE A&P Assessment and plan (1) ESRD (end stage renal disease): 84-year-old man with recent acute kidney injury in December 2024 and anemia. 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 Patient has underlying history of prostate cancer 24 years ago and status post prostatectomy. The patient has known hypothyroidism. The patient oncological has been started with CyBorD weekly chemotherapy which includes Cytoxan 300 mg/m? dexamethasone 40 mg daily andbortezomib. The patient was also recently started on hemodialysis 3 times a week. The patient now here with significant weakness. 1. 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 The patient is on dialysis thrice weekly. s/p HD yesterday -plan for HD tomorrow as k is 4.4 and bicarb is 24 2. hypothyroidism on levothyroxine On December 31 she had a normal TSH. 3. hyponatremia and hypoglycemia and cortiaol level at 1.99- he is on solucortef w/ chmo - please discuss w/ his oncologist if he needs more steroids 4. 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 high ferritin. can give EPO. i agree w/ blood transfusion 5. monitor nutrition and how much he is eating 6. aspiration pneumonia- he is on vanco. please follow levels and keep under 19. he is also on zosyn 7. BP remians low even w/ steroids. also glucose has risen Patient was seen examined using A/V equipment with the aid of a nurse. The patient and his consented telehealth and hemodialysis. Plan as above PDMP PDMP Reviewed: Not Reviewed Attestations Medical Necessity Statement*: per hospitalist Time Spent in Patient Care: 16 - 35 minutes (>than 50% of time spent in counselling and/or direct pt care on unit). Coding Level of Care Code Acute Code for Chg Fwd Diagnoses ESRD (end stage renal disease) N18.6
[2025-02-13 10:21] LABS: Reticulocyte % 1.7 % (0.5-2.0)
[2025-02-13 10:50] LABS: Lactate Dehydrogenase 140 U/L (135-225)
--- NOTE | 2025-02-13 12:17 | PC.SOCIAL ---
IMM Update pg 2 of IMM Updated and reviewed w/ patient. Copy provided and copy dated, initialed and placed in chart.
--- NOTE | 2025-02-13 12:31 | P.PN_ITS ---
Subjective 2 Subjective: Patient more awake and alert today. Sound stronger. Seen with family at bedside. Denies any nausea, vomiting, headache. Blood pressure stable. Denies any difficulty in breathing. Vitals/I&O/Wt Last Vital Signs Temp 97.6 F 02/13/25 11:37 Pulse 55 L 02/13/25 11:37 Resp 18 02/13/25 11:37 BP 118/64 02/13/25 11:37 Pulse Ox 97 02/13/25 11:37 O2 Del Method Room Air 02/13/25 11:04 FiO2 21 02/11/25 23:23 02/12/25 02/13/25 02/13/25 22:59 06:59 14:59 Intake Total 300 / 1400 650 / 2050 356 / 356 Output Total 1200 / 1700 Balance 300 / 900 -550 / 350 356 / 356 Weight last 48 hrs Weight 88.167 kg Weight 88.178 kg Weight 0 g Weight 81.647 kg Physical Exam 2 Narrative: General: No acute distress, AO x 3, chronically sick appearing, tired appearing, pallor present HEENT: PERRLA, pupils bilaterally equal and reactive Chest: Normal vesicular breath sounds, no added sounds, equal good air entry bilaterally CVS: S1-S2 regular, no murmurs, no tachycardia, no gallops, no rubs Abdomen: Soft, nontender, no organomegaly, bowel sounds present Neuro: No focal deficits, no facial deformity, AO x3, power 5/5 in all limbs Data 02/13/25 03:46 02/13/25 03:46 Micro: Microbiology 02/11/25 18:42 Blood Culture - Preliminary Blood Staphylococcus species 02/13/25 03:46 Blood Culture - Preliminary Blood SPECIMEN COLLECTED 02/13/25 03:41 Blood Culture - Preliminary Blood SPECIMEN COLLECTED 02/11/25 19:23 Blood Culture - Preliminary Blood NEGATIVE TO DATE A&P Assessment and plan (1) Generalized weakness: Can be multifactorial. Most likely a combination of new chemotherapy for multiple myeloma along with adrenal insufficiency and possible bilateral aspiration pneumonia. Also has hypoglycemia and hyponatremia. Blood cultures 1 out of 3 bottles from admission positive for Staphylococcus species. Most likely contaminant. Repeat blood culture sent on 02/13. Negative MRSA swab, negative respiratory viral panel. Hemoglobin down to 6.6 today. Appreciate iron panel, vitamin B12 and folate levels. Random cortisol level in the evening yesterday and today at 4 AM both recorded to be low. Concern for adrenal insufficiency. Physical therapy., random cortisol level stat and 4 AM. Physical therapy. Monitor blood sugars. (2) Encephalopathy acute: Acute metabolic encephalopathy. Resolved. (3) Aspiration pneumonia of both lower lobes: Seen on CT chest. Patient remains on room air. MRSA swab negative. Continue with IV Zosyn. Discontinue vancomycin. Advance as per speech evaluation. (4) Adrenal insufficiency: Cortisol level found to be low. Continue with IV hydrocortisone 100 mg twice daily. Will plan to transition to dexamethasone/hydrocortisone on discharge. (5) Lethargy: (6) ESRD (end stage renal disease): On hemodialysis Tuesday, Tuesday, Tuesday. Last dialysis on Tuesday. Nephrology consulted. (7) Multiple myeloma: Recently started on cyclophosphamide, immunotherapy and weekly Decadron. Lethargy could be in setting of new chemotherapy. (8) Uremia of renal origin: (9) Vomiting: Zofran as needed, Protonix daily. (10) Chronic idiopathic constipation: Does have history of chronic constipation. CT abdomen pelvis without contrast. Aggressive bowel regimen. Enema as needed. (11) Hyponatremia: Continue to monitor daily. Plan for dialysis as per nephrology team. If not improving can start on oral salt tablets. (12) Hypoglycemia: (13) Hypotension: (14) Anemia: Most likely a combination of dilutional as patient is on IV fluids in setting of end-stage renal disease and multiple myeloma. Target hemoglobin more than 7. Transfuse 1 unit of PRBC. Appreciate iron panel, vitamin B12 folate levels. No concerns for bleed for now. Monitor hemoglobin daily for now. Plan Hypotension: Improving. Most likely combination of acute illness along with adrenal insufficiency. Steroid as above. Midodrine 10 mg 3 times daily. Goal blood pressure less than 140/90 mmHg with mean over 65. Hypoglycemia: In setting of adrenal insufficiency. Started on D10 fluids yesterday. For now we will continue to finish the bag. After that continue with IV hydrocortisone 100 mg every 12 hourly. Hypoglycemia protocol. Blood sugar check every 4 hours. Staphylococcus species bacteremia: 1 out of 3 bottles positive for Staphylococcus. Most likely a contaminant. Will wait for complete ID and specification. Repeat blood culture sent on 02/13. Continue to follow. CODE STATUS: Discussed with patient and family at bedside. with the DPOA. Full code. Advance to renal dialysis diet the patient as per speech evaluation. Protonix OPD prophylaxis Heparin 5000 every 12 hourly for DVT prophylaxis. PDMP PDMP Reviewed: Not Reviewed Attestations 2 Medical Necessity Statement*: Requires further hospitalization for management of anemia requiring blood transfusion, hypotension and hypoglycemia in setting of adrenal insufficiency, generalized weakness and lethargy while safe discharge planning is sought in a patient with concerns for end-stage renal disease on hemodialysis, multiple myeloma Diagnoses Generalized weakness R53.1 Encephalopathy acute G93.40 Aspiration pneumonia of both lower lobes J69.0 Adrenal insufficiency E27.40 Lethargy R53.83 ESRD (end stage renal disease) N18.6 Multiple myeloma not having achieved remission C90.00 Multiple myeloma remission status: not in remission Uremia of renal origin N19 Vomiting R11.10 Chronic idiopathic constipation K59.04 Hyponatremia E87.1 Hypoglycemia E16.2 Hypotension I95.9 Anemia, unspecified type D64.9 Anemia type: unspecified type
[2025-02-13] MEDS: vancomycin 500 MG in sodium chloride 0.9% (plus) 100 ML 200 MG IV (14:01)
[2025-02-13] MEDS: atropine 0.1 mg/mL Syr 10 mL 0.5 MG IVP (14:46)
[2025-02-13 14:59] LABS: Glucose Point of Care 147 mg/dL (70-110)
[2025-02-13 18:02] LABS: Glucose Point of Care 138 mg/dL (70-110)
[2025-02-13 20:26] LABS: Glucose Point of Care 168 mg/dL (70-110)
[2025-02-13] MEDS: pantoprazole 40 mg SDV IVP (21:07)
[2025-02-13] MEDS: heparin 5,000 unit/mL INJ 1 mL 5000 UNIT SUBCUT (21:07)
[2025-02-14] VITALS (10 sets, daily range): BP systolic 115–153; BP diastolic 61–82; PULSE 53–63; RESP 15–19; TEMP 36.4–36.9; O2SAT 92–96
[2025-02-14 00:45] LABS: Glucose Point of Care 142 mg/dL (70-110)
[2025-02-14] MEDS: piperacillin-tazobactam 3.375 GM in sodium chloride 0.9% (plus) 50 ML IV ×2 (01:34→14:11)
[2025-02-14] MEDS: levothyroxine 125 mcg Tablet PO (04:53)
[2025-02-14 04:56] LABS: Glucose Point of Care 147 mg/dL (70-110)
[2025-02-14 06:05] LABS: Basophils % 0.2 %; Hematocrit 21.5 % (37-53); Lymphocytes # 0.5 10^3/uL (0.8-4.8); Lymphocytes % 10.5 %; Mean Corpuscular HGB Conc 32.1 g/dL (30-55); Mean Corpuscular Hemoglobin 29.1 pg (27-33); Mean Corpuscular Volume 90.7 fl (82-101); Mean Platelet Volume 11.3 fL (7.4-10.4); Monocytes # 0.2 10^3/uL (0.2-0.9); Nucleated Red Blood Cells % 0 %; Platelet Count 169 10^3/cmm (157-399); Red Blood Count 2.37 10^6/uL (3.85-5.65); Red Cell Distribution Width 15.5 % (12.1-15.1); White Blood Count 4.39 10^3/uL (3.29-11.43)
[2025-02-14 06:31] LABS: Magnesium 1.7 mg/dL (1.7-2.3)
[2025-02-14] MEDS: midodrine 5 mg TABLET 10 MG PO ×3 (07:52→20:05)
[2025-02-14 08:14] LABS: Alanine Aminotransferase 10 U/L (0-41); Alkaline Phosphatase 133 U/L (40-130); Anion Gap 19.7 (5-19); Aspartate Amino Transferase 16 U/L (0-40); Blood Urea Nitrogen 49 mg/dL (8-23); Calcium 7.6 mg/dL (8.5-10.5); Carbon Dioxide 22 mmol/L (22-29); Chloride 91 mmol/L (98-107); Creatinine Clr Calc Pharmacy 7.2127; Globulin 5.9 g/dL (1.3-4.6); Glucose 124 mg/dL (65-115); Osmolality Calculated 280 mOsm/kg (285-295); Potassium 4.7 mmol/L (3.5-5.1); Sodium 128 mmol/L (136-145); Total Bilirubin 0.3 mg/dL (0.15-1.2); Total Protein 7.9 g/dL (6.6-8.7)
[2025-02-14 08:25] LABS: Glucose Point of Care 148 mg/dL (70-110)
--- NOTE | 2025-02-14 08:40 | PC.HD ---
Upon arrival to dialysis, patient c/o nausea, reporting emesis x1 prior to transfer to room. Primary RN Ltea notified, requested patient's prn Zofran. Patient also expressed concern he may have vomited up his po midodrine.
[2025-02-14] MEDS: ondansetron 2 mg/ML SDV 2 mL 4 MG IVP (08:44)
--- NOTE | 2025-02-14 09:19 | P.PN_ITS ---
Subjective 2 Subjective: seen on dialysis, weak, nausea. poor appetite. no cp or sob or diarrjea. + wright Medications: Reviewed: Yes Medication Review Details: Current Medications Acetaminophen (Acetaminophen 325 Mg Tablet) 650 mg PO Q6H PRN PRN Reason: Mild/Mod Pain Or Temp >/= 101 Cyanocobalamin (Cyanocobalamin 1,000 Mcg Tablet) 1,000 mcg PO DAILY [facility] On Hold: 02/12/25 09:00 Comment: changed to wrong strength Docusate Sodium (Docusate Sodium 100 Mg Capsule) 100 mg PO BID [facility] Last Admin: 02/13/25 17:25 Dose: 100 mg Glucagon (Glucagon 1 Mg/Ml Kit 1 Ml) 1 mg IM ONCE PRN; Protocol PRN Reason: Adult Acute Hypoglycemia Nursing Prot. Heparin Sodium (Porcine) (Heparin 5,000 Unit/Ml Inj 1 Ml) 5,000 unit SUBCUT Q12H [facility] Last Admin: 02/13/25 21:07 Dose: 5,000 unit Hydrocortisone Sodium Succinate (Hydrocortisone 100 Mg/2 Ml Sdv) 100 mg IVP Q12H [facility] Last Admin: 02/13/25 23:25 Dose: 100 mg Piperacillin Sod/Tazobactam (Sod 3.375 gm/ Sodium Chloride) 50 mls @ 12.5 mls/hr IV Q12H [facility] Last Infusion: 02/14/25 05:45 Dose: Infused Dextrose (D5w) 500 mls @ 0 mls/hr IV ONCE PRN; Protocol PRN Reason: Adult Acute Hypoglycemia Prot Dextrose (D10w) 125 mls @ 750 mls/hr IV PRN PRN; Protocol PRN Reason: Adult Acute Hypoglycemia Nursing Protocol Albumin Human (Albumin) 12.5 gm in 50 mls @ 60 mls/hr IV PRN PRN PRN Reason: Hypotension and/or symptomatic Vancomycin HCl 500 mg/ Sodium (Chloride) 100 mls @ 200 mls/hr IV ONCE ONE Stop: 02/14/25 21:29 Lactulose (Lactulose Oral Liq 20 Gm/30 Ml Udc) 10 gm PO DAILY PRN; Protocol PRN Reason: Constipation (see protocol) Levothyroxine Sodium (Levothyroxine 125 Mcg Tablet) 125 mcg PO QAM [facility] Last Admin: 02/14/25 04:53 Dose: 125 mcg Magnesium Hydroxide (Magnesium Hydroxide 30 Ml Udc) 30 ml PO DAILY PRN; Protocol PRN Reason: Constipation (see protocol) Midodrine (Midodrine 5 Mg Tablet) 10 mg PO TID [facility] Last Admin: 02/14/25 07:52 Dose: 10 mg Morphine Sulfate (Morphine 4 Mg/Ml Sdv 1 Ml) 2 mg IVP Q4H PRN PRN Reason: SEVERE PAIN Multivitamins (E-Xorywgw-Xomaahx C Tablet) 1 each PO DAILY [facility] Last Admin: 02/13/25 08:40 Dose: 1 each Ondansetron HCl (Ondansetron 2 Mg/Ml Sdv 2 Ml) 4 mg IVP Q6H PRN PRN Reason: vomiting, or N/V if npo Last Admin: 02/14/25 08:44 Dose: 4 mg Pantoprazole Sodium (Pantoprazole 40 Mg Sdv) 40 mg IVP BEDTIME [facility] Last Admin: 02/13/25 21:07 Dose: 40 mg Sodium Chloride (Sodium Chloride 0.9% 100 Ml Bag) 50 ml IV PRN PRN PRN Reason: Blood transfusion prime and flush Stop: 02/15/25 08:57 Sucralfate (Sucralfate 1 Gm Tablet) 1 gm PO BID [facility] Last Admin: 02/13/25 17:25 Dose: 1 gm Vancomycin HCl (Vancomycin 1,000 Mg Sdv (Pharmacy Mix)) 0 mg XX PRN PRN PRN Reason: Pharmacy to Dose Vitals/I&O/Wt Last Vital Signs Temp 98.1 F 02/14/25 08:38 Pulse 63 02/14/25 08:38 Resp 16 02/14/25 08:38 BP 122/71 02/14/25 08:38 Pulse Ox 96 02/14/25 07:42 O2 Del Method Room Air 02/14/25 07:42 FiO2 21 02/11/25 23:23 02/13/25 02/14/25 02/14/25 22:59 06:59 14:59 Intake Total 1169 120 / 120 Balance 1169 120 / 120 Weight last 48 hrs Weight 89.63 kg Weight 88.167 kg Weight 88.178 kg Weight 0 g Physical Exam 2 Narrative: Elderly man in bed, awake, alert, no apparent respiratory distress. Vital signs noted saturating 96 percent on room air. HEENT normocephalic atraumatic. Neck is supple Lungs good air movement bilaterally Heart regular positive S1-S2 Abdomen positive bowel sounds. Extremities no leg edema. Neuro- awake and alert and follows commands Anterior chest wall permacath. Data 02/14/25 05:13 02/14/25 05:13 Micro: Microbiology 02/13/25 03:46 Blood Culture - Preliminary Blood NEGATIVE TO DATE 02/13/25 03:41 Blood Culture - Preliminary Blood NEGATIVE TO DATE 02/11/25 18:42 Blood Culture - Preliminary Blood Staphylococcus species A&P Assessment and plan (1) ESRD (end stage renal disease): 84-year-old man with recent acute kidney injury in December 2024 and anemia. 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 Patient has underlying history of prostate cancer 24 years ago and status post prostatectomy. The patient has known hypothyroidism. The patient oncological has been started with CyBorD weekly chemotherapy which includes Cytoxan 300 mg/m? dexamethasone 40 mg daily andbortezomib. The patient was also recently started on hemodialysis 3 times a week. The patient now here with significant weakness. 1. 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 The patient is on dialysis thrice weekly. - HD now -3 k remove 1.5 l. tx 1- 2 u prbc on dialysis 2. hypothyroidism on levothyroxine On December 31 she had a normal TSH. 3. hyponatremia and hypoglycemia and cortiaol level at 1.99- he is on solucortef w/ chmo - please discuss w/ his oncologist if he needs more steroids -would try to decrease dose 4. 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 high ferritin. can give EPO. - blood transfusion 5. monitor nutrition and how much he is eating 6. aspiration pneumonia- he is on vanco. please follow levels and keep under 19. he is also on zosyn 7. replace vit d 8. BP improving Patient was seen examined using A/V equipment with the aid of a nurse. The patient and his consented telehealth and hemodialysis. Plan as above PDMP PDMP Reviewed: Not Reviewed Attestations 2 Medical Necessity Statement*: anemia, esrd, Time Spent in Patient Care: Greater than 35 minutes (>than 50% of time spent in counselling and/or direct pt care on unit) . Coding Level of Care Code Acute Code for Chg Fwd Diagnoses ESRD (end stage renal disease) N18.6
--- NOTE | 2025-02-14 11:01 | PC.HD ---
This RN was asked to administer PRBC during HD treatment. Order for blood placed: 8:57 (2:40 treatment time remaining; informed hospitalist, invoice classification clerk, and RN that per [facility] Policy [facility] Procedure, I needed possession of blood products by 10:00 in order to have enough time to administer both units). Called lab @ 9:52, blood products not ready yet. This RN informed blood bank that I would now only have enough time to administer one unit, as long as I was able to receive it and start administration by 10:30. Blood products not ready at 10:30. Currently less than 30 minutes remains of treatment, so blood products will need to be administered after dialysis by primary RN, who has been informed of this situation. I have, however, adjusted our UF goal to compensate for the additional fluids that will be given during blood administration (Original UF goal 1500 mL net fluid removal; adjusted UF goal 2500 mL net fluid removal).
--- NOTE | 2025-02-14 11:12 | P.PN_ITS ---
Subjective 2 Subjective: No acute vents overnight. Patient seen during dialysis today. Awake and alert. Denies any abdominal pain. States feeling stronger. Did have episode of vomiting after breakfast. Vitals/I&O/Wt Last Vital Signs Temp 98.1 F 02/14/25 08:38 Pulse 63 02/14/25 08:38 Resp 16 02/14/25 08:38 BP 122/71 02/14/25 08:38 Pulse Ox 96 02/14/25 07:42 O2 Del Method Room Air 02/14/25 07:42 FiO2 21 02/11/25 23:23 02/13/25 02/14/25 02/14/25 22:59 06:59 14:59 Intake Total 1169 120 / 120 Balance 1169 120 / 120 Weight last 48 hrs Weight 89.63 kg Weight 88.167 kg Weight 88.178 kg Weight 0 g Physical Exam 2 Narrative: General: No acute distress, AO x 3, chronically sick appearing, tired appearing, pallor present HEENT: PERRLA, pupils bilaterally equal and reactive Chest: Normal vesicular breath sounds, no added sounds, equal good air entry bilaterally CVS: S1-S2 regular, no murmurs, no tachycardia, no gallops, no rubs Abdomen: Soft, nontender, no organomegaly, bowel sounds present Neuro: No focal deficits, no facial deformity, AO x3, power 5/5 in all limbs Data 02/14/25 05:13 02/14/25 05:13 Micro: Microbiology 02/13/25 03:46 Blood Culture - Preliminary Blood NEGATIVE TO DATE 02/13/25 03:41 Blood Culture - Preliminary Blood NEGATIVE TO DATE 02/11/25 18:42 Blood Culture - Preliminary Blood Staphylococcus species A&P Assessment and plan (1) Generalized weakness: Can be multifactorial. Most likely a combination of new chemotherapy for multiple myeloma along with adrenal insufficiency and possible bilateral aspiration pneumonia. Also has hypoglycemia and hyponatremia. Blood cultures 1 out of 3 bottles from admission positive for Staphylococcus species. Most likely contaminant. Repeat blood culture sent on 02/13. Negative MRSA swab, negative respiratory viral panel. Hemoglobin down to 6.6 today. Appreciate iron panel, vitamin B12 and folate levels. Random cortisol level in the evening yesterday and today at 4 AM both recorded to be low. Concern for adrenal insufficiency. Physical therapy., random cortisol level stat and 4 AM. Physical therapy. Monitor blood sugars. (2) Encephalopathy acute: Acute metabolic encephalopathy. Resolved. (3) Aspiration pneumonia of both lower lobes: Seen on CT chest. Patient remains on room air. MRSA swab negative. Continue with IV Zosyn. Discontinue vancomycin. Advance as per speech evaluation. (4) Adrenal insufficiency: Cortisol level found to be low. Continue with IV hydrocortisone 100 mg twice daily. Will plan to transition to dexamethasone/hydrocortisone on discharge. (5) Lethargy: (6) ESRD (end stage renal disease): On hemodialysis Tuesday, Tuesday, Tuesday. Last dialysis on Tuesday. Nephrology consulted. (7) Multiple myeloma: Recently started on cyclophosphamide, immunotherapy and weekly Decadron. Lethargy could be in setting of new chemotherapy. (8) Uremia of renal origin: (9) Vomiting: Zofran as needed, Protonix daily. (10) Chronic idiopathic constipation: Does have history of chronic constipation. CT abdomen pelvis without contrast. Aggressive bowel regimen. Enema as needed. (11) Hyponatremia: Continue to monitor daily. Plan for dialysis as per nephrology team. If not improving can start on oral salt tablets. (12) Hypoglycemia: (13) Hypotension: (14) Anemia: Most likely a combination of dilutional as patient is on IV fluids in setting of end-stage renal disease and multiple myeloma. Target hemoglobin more than 7. Transfuse 1 unit of PRBC. Appreciate iron panel, vitamin B12 folate levels. No concerns for bleed for now. Monitor hemoglobin daily for now. Plan Hypotension: Improving. Most likely combination of acute illness along with adrenal insufficiency. Steroid as above. Midodrine 10 mg 3 times daily. Goal blood pressure less than 140/90 mmHg with mean over 65. Hypoglycemia: In setting of adrenal insufficiency. Started on D10 fluids yesterday. For now we will continue to finish the bag. After that continue with IV hydrocortisone 100 mg every 12 hourly. Hypoglycemia protocol. Blood sugar check every 4 hours. Staphylococcus species bacteremia: 1 out of 3 bottles positive for Staphylococcus. Most likely a contaminant. Will wait for complete ID and specification. Repeat blood culture sent on 02/13. Continue to follow. CODE STATUS: Discussed with patient and family at bedside. with the DPOA. Full code. Advance to renal dialysis diet the patient as per speech evaluation. Protonix OPD prophylaxis Heparin 5000 every 12 hourly for DVT prophylaxis. Plan for the day: Hemoglobin improved to 6.9. Could be mildly dilutional as well. Anemia most likely a combination of end-stage renal disease, multiple myeloma along with new chemotherapy. No concerns for active bleeding for now. Repeat 1 unit of blood transfusion along with dialysis. Repeat H&H after completion of unit. Continue with IV Protonix daily. Blood sugar stable. Blood pressure is better. Is having episodes of bradycardia. Asymptomatic. Heart rate improved to more than mid 50s on waking up. EKG shows type I heart block. For now we will continue to monitor. Will plan for a possible event monitor on discharge. Continue with midodrine 10 mg 3 times daily, switch hydrocortisone to oral tablets 5 mg 3 times daily. Add fludrocortisone 0.1 mg daily. Remains on room air. Low concerns for pneumonia for now. CT did show concern for aspiration pneumonia though. Continue to finish a 5-day course of antibiotics. Blood cultures most likely contaminant. Repeat blood cultures from 02/13 so far negative. Discharge plan: If patient continues to do well with physical therapy, hemoglobin, blood pressures and blood sugars remain stable along with negative blood cultures for next 48 hours can plan to discharge. PDMP PDMP Reviewed: Not Reviewed Attestations 2 Medical Necessity Statement*: Requires further hospitalization for management of anemia requiring blood transfusion, adrenal insufficiency with hypotension and hypoglycemia while steroid dose is adjusted, pneumonia while diet is advanced, end-stage renal disease on hemodialysis in a patient with recent diagnosis of multiple myeloma. Diagnoses Generalized weakness R53.1 Encephalopathy acute G93.40 Aspiration pneumonia of both lower lobes J69.0 Adrenal insufficiency E27.40 Lethargy R53.83 ESRD (end stage renal disease) N18.6 Multiple myeloma not having achieved remission C90.00 Multiple myeloma remission status: not in remission Uremia of renal origin N19 Vomiting R11.10 Chronic idiopathic constipation K59.04 Hyponatremia E87.1 Hypoglycemia E16.2 Hypotension I95.9 Anemia, unspecified type D64.9 Anemia type: unspecified type
[2025-02-14] MEDS: hydrocortisone 100 mg/2 mL SDV IVP (13:09)
[2025-02-14] MEDS: docusate sodium 100 mg Capsule PO ×2 (13:10→17:57)
[2025-02-14] MEDS: fludrocortisone 0.1 mg Tablet PO (13:10)
[2025-02-14] MEDS: sucralfate 1 gm Tablet PO ×2 (13:10→17:57)
[2025-02-14] MEDS: heparin 5,000 unit/mL INJ 1 mL 5000 UNIT SUBCUT ×2 (13:10→23:01)
[2025-02-14] MEDS: b-complex-vitamin c Tablet 1 EACH PO (13:10)
[2025-02-14 13:11] LABS: Pan Gram-Positive Detected (NOT DETECT)
[2025-02-14 13:30] LABS: Testosterone Total < 2.5 ng/dL (193-740)
[2025-02-14] MEDS: ergocalciferol (vitamin D2) 50,000 Unit Capsule 50000 UNIT PO (14:11)
[2025-02-14 14:28] LABS: Glucose Point of Care 144 mg/dL (70-110)
[2025-02-14 16:34] LABS: Glucose Point of Care 128 mg/dL (70-110)
[2025-02-14 19:09] LABS: Hematocrit 24.9 % (37-53)
[2025-02-14] MEDS: pantoprazole 40 mg SDV IVP (20:04)
[2025-02-14] MEDS: vancomycin 500 MG in sodium chloride 0.9% (plus) 100 ML 200 MG IV (20:05)
[2025-02-14] MEDS: hydrocortisone 10 mg Tablet 5 MG PO (20:05)
[2025-02-14 20:24] LABS: Glucose Point of Care 153 mg/dL (70-110)
[2025-02-14 21:38] LABS: Hematocrit 24.6 % (37-53)
[2025-02-15] VITALS (8 sets, daily range): BP systolic 120–162; BP diastolic 63–75; PULSE 45–64; RESP 16–19; TEMP 36.4–36.6; O2SAT 94–97
[2025-02-15] MEDS: piperacillin-tazobactam 3.375 GM in sodium chloride 0.9% (plus) 50 ML IV ×2 (01:34→14:11)
[2025-02-15 05:42] LABS: Basophils % 0.2 %; Eosinophils % 0.2 %; Hematocrit 23.7 % (37-53); Lymphocytes # 0.6 10^3/uL (0.8-4.8); Lymphocytes % 13.4 %; Mean Corpuscular HGB Conc 32.5 g/dL (30-55); Mean Corpuscular Hemoglobin 28.8 pg (27-33); Mean Corpuscular Volume 88.8 fl (82-101); Mean Platelet Volume 10.7 fL (7.4-10.4); Monocytes # 0.4 10^3/uL (0.2-0.9); Monocytes % 8.8 %; Neutrophils # 3.32 10^3/uL (1.8-7.7); Neutrophils % 76.5 %; Nucleated Red Blood Cells % 0 %; Platelet Count 194 10^3/cmm (157-399); Red Blood Count 2.67 10^6/uL (3.85-5.65); Red Cell Distribution Width 16.3 % (12.1-15.1); White Blood Count 4.34 10^3/uL (3.29-11.43)
[2025-02-15] MEDS: levothyroxine 125 mcg Tablet PO (06:09)
[2025-02-15 06:20] LABS: Glucose Point of Care 97 mg/dL (70-110)
[2025-02-15 06:57] LABS: Alanine Aminotransferase 10 U/L (0-41); Alkaline Phosphatase 105 U/L (40-130); Anion Gap 19.2 (5-19); Aspartate Amino Transferase 14 U/L (0-40); Blood Urea Nitrogen 38 mg/dL (8-23); Calcium 7.8 mg/dL (8.5-10.5); Carbon Dioxide 23 mmol/L (22-29); Chloride 95 mmol/L (98-107); Creatinine Clr Calc Pharmacy 10.1626; Globulin 5.5 g/dL (1.3-4.6); Glucose 91 mg/dL (65-115); Magnesium 1.7 mg/dL (1.7-2.3); Osmolality Calculated 285 mOsm/kg (285-295); Phosphorus 3.8 mg/dL (2.5-4.5); Potassium 4.2 mmol/L (3.5-5.1); Sodium 133 mmol/L (136-145); Total Bilirubin 0.3 mg/dL (0.15-1.2); Total Protein 7.5 g/dL (6.6-8.7)
[2025-02-15 08:32] LABS: Reticulocyte % 1.6 % (0.5-2.0)
--- NOTE | 2025-02-15 08:37 | P.PN_ITS ---
Subjective 2 Subjective: still headache. no n/v/f/c/wright/d/sp/ or sob at rest Medications: Reviewed: Yes Medication Review Details: Current Medications Acetaminophen (Acetaminophen 325 Mg Tablet) 650 mg PO Q6H PRN PRN Reason: Mild/Mod Pain Or Temp >/= 101 Cyanocobalamin (Cyanocobalamin 1,000 Mcg Tablet) 1,000 mcg PO DAILY [facility] On Hold: 02/12/25 09:00 Comment: changed to wrong strength Docusate Sodium (Docusate Sodium 100 Mg Capsule) 100 mg PO BID [facility] Last Admin: 02/14/25 17:57 Dose: 100 mg Ergocalciferol (Ergocalciferol (Vitamin D2) 50,000 Unit Capsule) 50,000 unit PO Q7D [facility] Last Admin: 02/14/25 14:11 Dose: 50,000 unit Fludrocortisone Acetate (Fludrocortisone 0.1 Mg Tablet) 0.1 mg PO DAILY [facility] Last Admin: 02/14/25 13:10 Dose: 0.1 mg Glucagon (Glucagon 1 Mg/Ml Kit 1 Ml) 1 mg IM ONCE PRN; Protocol PRN Reason: Adult Acute Hypoglycemia Nursing Prot. Heparin Sodium (Porcine) (Heparin 5,000 Unit/Ml Inj 1 Ml) 5,000 unit SUBCUT Q12H [facility] Last Admin: 02/14/25 23:01 Dose: 5,000 unit Hydrocortisone (Hydrocortisone 10 Mg Tablet) 5 mg PO TID [facility] Last Admin: 02/14/25 20:05 Dose: 5 mg Piperacillin Sod/Tazobactam (Sod 3.375 gm/ Sodium Chloride) 50 mls @ 12.5 mls/hr IV Q12H [facility] Last Infusion: 02/15/25 05:15 Dose: Infused Dextrose (D5w) 500 mls @ 0 mls/hr IV ONCE PRN; Protocol PRN Reason: Adult Acute Hypoglycemia Prot Dextrose (D10w) 125 mls @ 750 mls/hr IV PRN PRN; Protocol PRN Reason: Adult Acute Hypoglycemia Nursing Protocol Albumin Human (Albumin) 12.5 gm in 50 mls @ 60 mls/hr IV PRN PRN PRN Reason: Hypotension and/or symptomatic Lactulose (Lactulose Oral Liq 20 Gm/30 Ml Udc) 10 gm PO DAILY PRN; Protocol PRN Reason: Constipation (see protocol) Levothyroxine Sodium (Levothyroxine 125 Mcg Tablet) 125 mcg PO QAM [facility] Last Admin: 02/15/25 06:09 Dose: 125 mcg Magnesium Hydroxide (Magnesium Hydroxide 30 Ml Udc) 30 ml PO DAILY PRN; Protocol PRN Reason: Constipation (see protocol) Midodrine (Midodrine 5 Mg Tablet) 10 mg PO TID [facility] Last Admin: 02/14/25 20:05 Dose: 10 mg Morphine Sulfate (Morphine 4 Mg/Ml Sdv 1 Ml) 2 mg IVP Q4H PRN PRN Reason: SEVERE PAIN Multivitamins (Z-Gvwijfd-Tfpkbfy C Tablet) 1 each PO DAILY [facility] Last Admin: 02/14/25 13:10 Dose: 1 each Ondansetron HCl (Ondansetron 2 Mg/Ml Sdv 2 Ml) 4 mg IVP Q6H PRN PRN Reason: vomiting, or N/V if npo Last Admin: 02/14/25 08:44 Dose: 4 mg Pantoprazole Sodium (Pantoprazole 40 Mg Sdv) 40 mg IVP BEDTIME [facility] Last Admin: 02/14/25 20:04 Dose: 40 mg Sodium Chloride (Sodium Chloride 0.9% 100 Ml Bag) 50 ml IV PRN PRN PRN Reason: Blood transfusion prime and flush Stop: 02/15/25 08:57 Sodium Chloride (Sodium Chloride 0.9% 100 Ml Bag) 50 ml IV PRN PRN PRN Reason: Blood transfusion prime and flush Stop: 02/15/25 09:23 Sucralfate (Sucralfate 1 Gm Tablet) 1 gm PO BID [facility] Last Admin: 02/14/25 17:57 Dose: 1 gm Vancomycin HCl (Vancomycin 1,000 Mg Sdv (Pharmacy Mix)) 0 mg XX PRN PRN PRN Reason: Pharmacy to Dose Vitals/I&O/Wt Last Vital Signs Temp 97.6 F 02/15/25 07:45 Pulse 64 02/15/25 07:45 Resp 17 02/15/25 07:45 BP 133/63 02/15/25 07:45 Pulse Ox 94 02/15/25 07:45 O2 Del Method Room Air 02/15/25 07:45 FiO2 21 02/11/25 23:23 02/14/25 02/15/25 02/15/25 22:59 06:59 14:59 Intake Total 1120 / 1860 50 / 1910 0 / 0 Balance 1120 / -1140 50 / -1090 0 / 0 Weight last 48 hrs Weight 93.44 kg Weight 92.5 kg Weight 89.63 kg Physical Exam 2 Narrative: Elderly man in bed, awake, alert, no apparent respiratory distress. Vital signs noted saturating 94 percent on room air. HEENT normocephalic atraumatic. Neck is supple Lungs good air movement bilaterally Heart regular positive S1-S2 Abdomen positive bowel sounds. Extremities no leg edema. Neuro- awake and alert and follows commands Anterior chest wall permacath. Data 02/15/25 05:14 02/15/25 05:14 Micro: Microbiology 02/11/25 18:42 Blood Culture - Preliminary Blood Staphylococcus saprophyticus Gram Negative Rods 02/13/25 03:46 Blood Culture - Preliminary Blood NEGATIVE TO DATE 02/13/25 03:41 Blood Culture - Preliminary Blood NEGATIVE TO DATE A&P Assessment and plan (1) ESRD (end stage renal disease): 84-year-old man with recent acute kidney injury in December 2024 and anemia. 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 Patient has underlying history of prostate cancer 24 years ago and status post prostatectomy. The patient has known hypothyroidism. The patient oncological has been started with CyBorD weekly chemotherapy which includes Cytoxan 300 mg/m? dexamethasone 40 mg daily andbortezomib. The patient was also recently started on hemodialysis 3 times a week. 1. 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 The patient is on dialysis thrice weekly. -as outpt he is MWF. here he is off schedule plan repeat HD tomorrow - HD now -3 k remove 1.5 l. 2. hypothyroidism on levothyroxine On December 31 she had a normal TSH. 3. hyponatremia and hypoglycemia and cortisol level at 1.99- he is on solucortef w/ chemo -he is on steroids now as per hospitalist -hypotension monitor on midodrine and florinef 4. 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 high ferritin. can give EPO. - blood transfusion 5. monitor nutrition and how much he is eating 6. gram neg theo bacteremia- 1 bottle. he has a permacath. follow up sensitivities. if he becomes unstable will need permacath out - he is on vanco. please follow levels and keep under 19. he is also on zosyn 7. replace vit d 8. Patient was seen examined using A/V equipment with the aid of a nurse. The patient and his consented telehealth and hemodialysis. discussed w/ Dr Fletcher Plan as above PDMP PDMP Reviewed: Not Reviewed Attestations 2 Medical Necessity Statement*: anemia, gram neg bacteremia, MM Time Spent in Patient Care: 16 - 35 minutes (>than 50% of time sp ent in counselling and/or direct pt care on unit) . Coding Level of Care Code Acute Code for Chg Fwd Diagnoses ESRD (end stage renal disease) N18.6
--- NOTE | 2025-02-15 09:13 | PC.SOCIAL ---
IMM Update Pg 2 of IMM updated and reviewed with patient, who verbalized understanding. Copy provided.
[2025-02-15] MEDS: b-complex-vitamin c Tablet 1 EACH PO (09:51)
[2025-02-15] MEDS: midodrine 5 mg TABLET 10 MG PO ×2 (09:51→14:11)
[2025-02-15] MEDS: hydrocortisone 10 mg Tablet 5 MG PO ×3 (09:51→20:31)
[2025-02-15] MEDS: sucralfate 1 gm Tablet PO ×2 (09:51→17:51)
[2025-02-15] MEDS: docusate sodium 100 mg Capsule PO ×2 (09:51→17:51)
[2025-02-15] MEDS: fludrocortisone 0.1 mg Tablet PO (09:51)
[2025-02-15] MEDS: magnesium hydroxide 30 mL UDC PO (10:48)
[2025-02-15] MEDS: epoetin alfa-epbx 10,000 unit/ml SDV (ESRD) 10000 UNIT SUBCUT (10:49)
[2025-02-15 11:53] LABS: Glucose Point of Care 106 mg/dL (70-110)
--- NOTE | 2025-02-15 14:00 | P.PN_ITS ---
Subjective 2 Subjective: No acute vents overnight. Seen with family at bedside. Patient is a lot more awake and alert. Able to have complete conversation. Blood sugar stable. No concerns for aspiration anymore. Denies any bowel movements. States he has not had a bowel movement in 4 to 5 days. Vitals/I&O/Wt Last Vital Signs Temp 97.6 F 02/15/25 12:00 Pulse 56 L 02/15/25 12:00 Resp 17 02/15/25 12:00 BP 132/73 02/15/25 12:00 Pulse Ox 95 02/15/25 12:00 O2 Del Method Room Air 02/15/25 12:00 FiO2 21 02/11/25 23:23 02/14/25 02/15/25 02/15/25 22:59 06:59 14:59 Intake Total 1120 / 1860 50 / 1910 360 / 360 Balance 1120 / -1140 50 / -1090 360 / 360 Weight last 48 hrs Weight 93.44 kg Weight 92.5 kg Weight 89.63 kg Physical Exam 2 Narrative: General: No acute distress, AO x 3, chronically sick appearing, tired appearing, pallor present HEENT: PERRLA, pupils bilaterally equal and reactive Chest: Normal vesicular breath sounds, no added sounds, equal good air entry bilaterally CVS: S1-S2 regular, no murmurs, no tachycardia, no gallops, no rubs Abdomen: Soft, nontender, no organomegaly, bowel sounds present Neuro: No focal deficits, no facial deformity, AO x3, power 5/5 in all limbs Data 02/15/25 05:14 02/15/25 05:14 Micro: Microbiology 02/11/25 18:42 Blood Culture - Preliminary Blood Staphylococcus saprophyticus Gram Negative Rods A&P Assessment and plan (1) Gram-negative bacteremia: (2) Adrenal insufficiency: Cortisol level found to be low. Continue with IV hydrocortisone 100 mg twice daily. Will plan to transition to dexamethasone/hydrocortisone on discharge. (3) Hypotension: (4) Aspiration pneumonia of both lower lobes: Seen on CT chest. Patient remains on room air. MRSA swab negative. Continue with IV Zosyn. Discontinue vancomycin. Advance as per speech evaluation. (5) Hypoglycemia: (6) Generalized weakness: Can be multifactorial. Most likely a combination of new chemotherapy for multiple myeloma along with adrenal insufficiency and possible bilateral aspiration pneumonia. Also has hypoglycemia and hyponatremia. Blood cultures 1 out of 3 bottles from admission positive for Staphylococcus species. Most likely contaminant. Repeat blood culture sent on 02/13. Negative MRSA swab, negative respiratory viral panel. Hemoglobin down to 6.6 today. Appreciate iron panel, vitamin B12 and folate levels. Random cortisol level in the evening yesterday and today at 4 AM both recorded to be low. Concern for adrenal insufficiency. Physical therapy., random cortisol level stat and 4 AM. Physical therapy. Monitor blood sugars. (7) Lethargy: (8) ESRD (end stage renal disease): On hemodialysis Tuesday, Tuesday, Tuesday. Last dialysis on Tuesday. Nephrology consulted. (9) Multiple myeloma: Recently started on cyclophosphamide, immunotherapy and weekly Decadron. Lethargy could be in setting of new chemotherapy. (10) Encephalopathy acute: Acute metabolic encephalopathy. Resolved. (11) Uremia of renal origin: (12) Vomiting: Zofran as needed, Protonix daily. (13) Chronic idiopathic constipation: Does have history of chronic constipation. CT abdomen pelvis without contrast. Aggressive bowel regimen. Enema as needed. (14) Hyponatremia: Continue to monitor daily. Plan for dialysis as per nephrology team. If not improving can start on oral salt tablets. (15) Anemia: Most likely a combination of dilutional as patient is on IV fluids in setting of end-stage renal disease and multiple myeloma. Target hemoglobin more than 7. Transfuse 1 unit of PRBC. Appreciate iron panel, vitamin B12 folate levels. No concerns for bleed for now. Monitor hemoglobin daily for now. Plan Hypotension: Improving. Most likely combination of acute illness along with adrenal insufficiency. Steroid as above. Midodrine 10 mg 3 times daily. Goal blood pressure less than 140/90 mmHg with mean over 65. Hypoglycemia: In setting of adrenal insufficiency. Started on D10 fluids yesterday. For now we will continue to finish the bag. After that continue with IV hydrocortisone 100 mg every 12 hourly. Hypoglycemia protocol. Blood sugar check every 4 hours. Staphylococcus species bacteremia: 1 out of 3 bottles positive for Staphylococcus. Most likely a contaminant. Will wait for complete ID and specification. Repeat blood culture sent on 02/13. Continue to follow. CODE STATUS: Discussed with patient and family at bedside. with the DPOA. Full code. Advance to renal dialysis diet the patient as per speech evaluation. Protonix OPD prophylaxis Heparin 5000 every 12 hourly for DVT prophylaxis. Plan for the day: Hemoglobin improved to 8.4. Currently 7.7. Denies any bowel movements. Less likely melena. Most likely in setting of multiple myeloma, end-stage renal disease along with chemotherapy. Check reticulocyte count. EPO as per nephrology team. Blood pressures and blood sugar stable. Continue with current dose of fludrocortisone, hydrocortisone 5 mg 3 times daily along with midodrine 10 mg 3 times daily. Goal blood pressure less than 140/90 mmhg with mean over 65. Plan for dialysis in AM. Blood culture from admission positive for gram-negative rods and Staphylococcus saprophyticus. Staphylococcus most likely contaminant. Follow-up repeat blood cultures from 02/13. Depending on culture sensitivities of gram-negative will plan for antibiotic as an outpatient. Discharge plan: If patient continues to do well with physical therapy, hemoglobin, blood pressures and blood sugars remain stable along with negative blood cultures for next 48 hours can plan to discharge. PDMP PDMP Reviewed: Not Reviewed Attestations 2 Medical Necessity Statement*: Requested hospitalization for management generalized weakness, hypotension in setting of adrenal insufficiency, aspiration pneumonia, gram-negative bacteremia in a patient on hemodialysis for end-stage renal disease, multiple myeloma Diagnoses Gram-negative bacteremia R78.81 Adrenal insufficiency E27.40 Hypotension I95.9 Aspiration pneumonia of both lower lobes J69.0 Hypoglycemia E16.2 Generalized weakness R53.1 Lethargy R53.83 ESRD (end stage renal disease) N18.6 Multiple myeloma not having achieved remission C90.00 Multiple myeloma remission status: not in remission Encephalopathy acute G93.40 Uremia of renal origin N19 Vomiting R11.10 Chronic idiopathic constipation K59.04 Hyponatremia E87.1 Anemia, unspecified type D64.9 Anemia type: unspecified type
[2025-02-15 14:44] LABS: Dehydroepiandrosterone Sulfate 5 mcg/dL (3-225)
[2025-02-15 16:45] LABS: Glucose Point of Care 106 mg/dL (70-110)
[2025-02-15] MEDS: pantoprazole 40 mg SDV IVP (20:30)
[2025-02-15] MEDS: midodrine 5 mg TABLET PO (20:30)
[2025-02-15 20:45] LABS: Glucose Point of Care 108 mg/dL (70-110)
[2025-02-16] VITALS (8 sets, daily range): BP systolic 112–178; BP diastolic 63–79; PULSE 52–67; RESP 16–17; TEMP 36.5–36.9; O2SAT 94–96
[2025-02-16] MEDS: piperacillin-tazobactam 3.375 GM in sodium chloride 0.9% (plus) 50 ML IV ×2 (01:20→14:40)
[2025-02-16 04:45] LABS: Basophils % 0.4 %; Eosinophils # 0.1 10^3/uL (0.0-0.8); Eosinophils % 2.3 %; Hematocrit 24.8 % (37-53); Lymphocytes # 0.7 10^3/uL (0.8-4.8); Lymphocytes % 14.9 %; Mean Corpuscular HGB Conc 32.3 g/dL (30-55); Mean Corpuscular Hemoglobin 28.7 pg (27-33); Mean Corpuscular Volume 88.9 fl (82-101); Mean Platelet Volume 10.9 fL (7.4-10.4); Monocytes # 0.4 10^3/uL (0.2-0.9); Monocytes % 7.5 %; Neutrophils % 73.4 %; Nucleated Red Blood Cells % 0 %; Platelet Count 213 10^3/cmm (157-399); Red Blood Count 2.79 10^6/uL (3.85-5.65); Red Cell Distribution Width 15.9 % (12.1-15.1); White Blood Count 4.77 10^3/uL (3.29-11.43)
[2025-02-16 04:59] LABS: Alanine Aminotransferase 9 U/L (0-41); Albumin Level 2.1 g/dL (3.5-5.2); Alkaline Phosphatase 105 U/L (40-130); Anion Gap 15.4 (5-19); Aspartate Amino Transferase 13 U/L (0-40); Blood Urea Nitrogen 50 mg/dL (8-23); Calcium 7.7 mg/dL (8.5-10.5); Carbon Dioxide 25 mmol/L (22-29); Chloride 95 mmol/L (98-107); Creatinine Clr Calc Pharmacy 8.3169; Globulin 5.5 g/dL (1.3-4.6); Glucose 77 mg/dL (65-115); Magnesium 1.9 mg/dL (1.7-2.3); Osmolality Calculated 284 mOsm/kg (285-295); Phosphorus 2.8 mg/dL (2.5-4.5); Potassium 4.4 mmol/L (3.5-5.1); Sodium 131 mmol/L (136-145); Total Bilirubin 0.3 mg/dL (0.15-1.2); Total Protein 7.6 g/dL (6.6-8.7)
[2025-02-16 05:06] LABS: Vancomycin Random 16.2 ug/mL (20.0-40.0)
[2025-02-16] MEDS: levothyroxine 125 mcg Tablet PO (05:14)
[2025-02-16 05:47] LABS: Calcium 7.6 mg/dL (8.5-10.5)
[2025-02-16 06:42] LABS: Glucose Point of Care 88 mg/dL (70-110)
--- NOTE | 2025-02-16 08:01 | PM.PN ---
Subjective Subjective: The patient was seen and examined. The patient complains of headaches knee pain, and chest tightness. Patient states chest tightness started this morning however he is hungry and comfortable in bed. Medications: Reviewed: Yes Medication Review Details: Current Medications Acetaminophen (Acetaminophen 325 Mg Tablet) 650 mg PO Q6H PRN PRN Reason: Mild/Mod Pain Or Temp >/= 101 Cyanocobalamin (Cyanocobalamin 1,000 Mcg Tablet) 1,000 mcg PO DAILY [facility] On Hold: 02/12/25 09:00 Comment: changed to wrong strength Docusate Sodium (Docusate Sodium 100 Mg Capsule) 100 mg PO BID [facility] Last Admin: 02/15/25 17:51 Dose: 100 mg Ergocalciferol (Ergocalciferol (Vitamin D2) 50,000 Unit Capsule) 50,000 unit PO Q7D [facility] Last Admin: 02/14/25 14:11 Dose: 50,000 unit Fludrocortisone Acetate (Fludrocortisone 0.1 Mg Tablet) 0.1 mg PO DAILY [facility] Last Admin: 02/15/25 09:51 Dose: 0.1 mg Glucagon (Glucagon 1 Mg/Ml Kit 1 Ml) 1 mg IM ONCE PRN; Protocol PRN Reason: Adult Acute Hypoglycemia Nursing Prot. Hydrocortisone (Hydrocortisone 10 Mg Tablet) 5 mg PO TID [facility] Last Admin: 02/15/25 20:31 Dose: 5 mg Piperacillin Sod/Tazobactam (Sod 3.375 gm/ Sodium Chloride) 50 mls @ 12.5 mls/hr IV Q12H [facility] Last Infusion: 02/16/25 05:04 Dose: Infused Dextrose (D5w) 500 mls @ 0 mls/hr IV ONCE PRN; Protocol PRN Reason: Adult Acute Hypoglycemia Prot Dextrose (D10w) 125 mls @ 750 mls/hr IV PRN PRN; Protocol PRN Reason: Adult Acute Hypoglycemia Nursing Protocol Albumin Human (Albumin) 12.5 gm in 50 mls @ 60 mls/hr IV PRN PRN PRN Reason: Hypotension and/or symptomatic Lactulose (Lactulose Oral Liq 20 Gm/30 Ml Udc) 10 gm PO DAILY PRN; Protocol PRN Reason: Constipation (see protocol) Levothyroxine Sodium (Levothyroxine 125 Mcg Tablet) 125 mcg PO QAM [facility] Last Admin: 02/16/25 05:14 Dose: 125 mcg Magnesium Hydroxide (Magnesium Hydroxide 30 Ml Udc) 30 ml PO DAILY [facility]; Protocol Midodrine (Midodrine 5 Mg Tablet) 5 mg PO TID [facility] Last Admin: 02/15/25 20:30 Dose: 5 mg Morphine Sulfate (Morphine 4 Mg/Ml Sdv 1 Ml) 2 mg IVP Q4H PRN PRN Reason: SEVERE PAIN Multivitamins (O-Zhiegsa-Fccsquf C Tablet) 1 each PO DAILY [facility] Last Admin: 02/15/25 09:51 Dose: 1 each Ondansetron HCl (Ondansetron 2 Mg/Ml Sdv 2 Ml) 4 mg IVP Q6H PRN PRN Reason: vomiting, or N/V if npo Last Admin: 02/14/25 08:44 Dose: 4 mg Pantoprazole Sodium (Pantoprazole 40 Mg Sdv) 40 mg IVP BEDTIME [facility] Last Admin: 02/15/25 20:30 Dose: 40 mg Sucralfate (Sucralfate 1 Gm Tablet) 1 gm PO BID [facility] Last Admin: 02/15/25 17:51 Dose: 1 gm Vancomycin HCl (Vancomycin 1,000 Mg Sdv (Pharmacy Mix)) 0 mg XX PRN PRN PRN Reason: Pharmacy to Dose Vitals/I&O/Wt Last Vital Signs Temp 97.7 F 02/16/25 04:00 Pulse 55 L 02/16/25 07:36 Resp 16 02/16/25 07:36 BP 134/71 02/16/25 07:36 Pulse Ox 96 02/16/25 07:36 O2 Del Method Room Air 02/16/25 07:36 FiO2 21 02/11/25 23:23 02/15/25 02/16/25 02/16/25 22:59 06:59 14:59 Intake Total 290 / 650 50 / 700 Balance 290 / 650 50 / 700 Weight last 48 hrs Weight 92.261 kg Weight 93.44 kg Weight 92.5 kg Physical Exam Narrative: Elderly man in bed, awake, alert, no apparent respiratory distress. Vital signs noted saturating 96 percent on room air. HEENT normocephalic atraumatic. Neck is supple Lungs good air movement bilaterally Heart regular positive S1-S2 Abdomen positive bowel sounds. Extremities no leg edema. Neuro- awake and alert and follows commands Anterior chest wall permacath. Data 02/16/25 03:16 02/16/25 03:16 A&P Assessment and plan (1) ESRD (end stage renal disease): 84-year-old man with recent acute kidney injury in December 2024 and anemia. 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 Patient has underlying history of prostate cancer 24 years ago and status post prostatectomy. The patient has known hypothyroidism. The patient oncological has been started with CyBorD weekly chemotherapy which includes Cytoxan 300 mg/m? dexamethasone 40 mg daily andbortezomib. The patient was also recently started on hemodialysis 3 times a week. 1. 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 The patient is on dialysis thrice weekly. -as outpt he is MWF. here he is off schedule plan repeat HD today - HD now -3 k remove 1.5 l. 2. hypothyroidism on levothyroxine On December 31 she had a normal TSH. 3. hyponatremia and hypoglycemia and cortisol level at 1.99- he is on solucortef w/ chemo -he is on steroids now as per hospitalist -hypotension monitor on midodrine and florinef 4. 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 high ferritin. can give EPO. - blood transfusion Patient was given epogen yesterday 5. 1 set blood cx + for staph and a gread neg bacteremia= Q if is a contaminant - he is on vanco. please follow levels and keep under 19. he is also on zosyn Repeat blood cultures on dialysis today. 6. Chest tightness as per hospitalist. Consider EKG. 7. replace vit d 8. Patient was seen examined using A/V equipment with the aid of a nurse. The patient and his consented telehealth and hemodialysis. 9. Limit Carafate with the ESRD. Plan as above PDMP PDMP Reviewed: Not Reviewed Attestations Medical Necessity Statement*: Anemia, question bacteremia on antibiotics Time Spent in Patient Care: 16 - 35 minutes (>than 50% of time spent in counselling and/or direct pt care on unit). Coding Level of Care Code Acute Code for Chg Fwd Diagnoses ESRD (end stage renal disease) N18.6
--- NOTE | 2025-02-16 08:12 | ECG_ITS ---
[facility] Date: 2025-02-16 Pat Name: Manuel Parsons Department: Room: 267 Gender: Male [employer]: : [id number] Requested By: Babatunde Boykin Order Number: [id number] Leah MD: Fabrizio Davies M.D. Measurements Intervals [place] Rate: 61 P: 43 [place]: 210 QRS: -50 QRSD: 113 T: 57 QT: 450 QTc: 453 Interpretive Statements SINUS RHYTHM WITH FIRST DEGREE AV BLOCK PATTERN CONSISTENT WITH PULMONARY DISEASE LEFT ANTERIOR FASCICULAR BLOCK [QRS AXIS <= -45, QR IN I, RS IN II] Compared to ECG 02/13/2025 08:06:26 No significant change Electronically Signed On 02-16-2025 11:52:34 CDT by Fabrizio Davies M.D. [email or web address]
[2025-02-16] MEDS: b-complex-vitamin c Tablet 1 EACH PO (08:45)
[2025-02-16] MEDS: fludrocortisone 0.1 mg Tablet PO (08:45)
[2025-02-16] MEDS: hydrocortisone 10 mg Tablet 5 MG PO ×3 (08:45→20:30)
[2025-02-16] MEDS: docusate sodium 100 mg Capsule PO (08:45)
[2025-02-16] MEDS: midodrine 5 mg TABLET PO ×3 (08:46→20:29)
[2025-02-16] MEDS: sucralfate 1 gm Tablet PO ×2 (08:46→18:17)
--- NOTE | 2025-02-16 09:46 | PC.HD ---
Blood cultures from HD catheter drawn @ 0930 by HD RN, prior to HD intiation.
[2025-02-16 11:13] LABS: Glucose Point of Care 71 mg/dL (70-110)
--- NOTE | 2025-02-16 12:44 | P.PN_ITS ---
Subjective 2 Subjective: No acute events overnight as he had some difficulty in breathing which he says has resolved now after starting dialysis. Otherwise has remained hemodynamically stable and afebrile. Blood sugar stable. Vitals/I&O/Wt Last Vital Signs Temp 98.1 F 02/16/25 09:43 Pulse 62 02/16/25 09:43 Resp 16 02/16/25 09:43 BP 142/79 02/16/25 09:43 Pulse Ox 96 02/16/25 07:36 O2 Del Method Room Air 02/16/25 07:36 FiO2 21 02/11/25 23:23 02/15/25 02/16/25 02/16/25 22:59 06:59 14:59 Intake Total 290 / 650 50 / 700 480 / 480 Balance 290 / 650 50 / 700 480 / 480 Weight last 48 hrs Weight 92.261 kg Weight 93.44 kg Physical Exam 2 Narrative: General: No acute distress, AO x 3, chronically sick appearing, tired appearing, pallor present HEENT: PERRLA, pupils bilaterally equal and reactive Chest: Normal vesicular breath sounds, no added sounds, equal good air entry bilaterally CVS: S1-S2 regular, no murmurs, no tachycardia, no gallops, no rubs Abdomen: Soft, nontender, no organomegaly, bowel sounds present Neuro: No focal deficits, no facial deformity, AO x3, power 5/5 in all limbs Data 02/16/25 03:16 02/16/25 03:16 Micro: Microbiology 02/11/25 18:42 Blood Culture - Final Blood Staphylococcus saprophyticus Pseudo fluorescens/putida A&P Assessment and plan (1) Gram-negative bacteremia: (2) Adrenal insufficiency: Cortisol level found to be low. Continue with IV hydrocortisone 100 mg twice daily. Will plan to transition to dexamethasone/hydrocortisone on discharge. (3) Hypotension: (4) Aspiration pneumonia of both lower lobes: Seen on CT chest. Patient remains on room air. MRSA swab negative. Continue with IV Zosyn. Discontinue vancomycin. Advance as per speech evaluation. (5) Hypoglycemia: (6) Generalized weakness: Can be multifactorial. Most likely a combination of new chemotherapy for multiple myeloma along with adrenal insufficiency and possible bilateral aspiration pneumonia. Also has hypoglycemia and hyponatremia. Blood cultures 1 out of 3 bottles from admission positive for Staphylococcus species. Most likely contaminant. Repeat blood culture sent on 02/13. Negative MRSA swab, negative respiratory viral panel. Hemoglobin down to 6.6 today. Appreciate iron panel, vitamin B12 and folate levels. Random cortisol level in the evening yesterday and today at 4 AM both recorded to be low. Concern for adrenal insufficiency. Physical therapy., random cortisol level stat and 4 AM. Physical therapy. Monitor blood sugars. (7) Lethargy: (8) ESRD (end stage renal disease): On hemodialysis Tuesday, Tuesday, Tuesday. Last dialysis on Tuesday. Nephrology consulted. (9) Multiple myeloma: Recently started on cyclophosphamide, immunotherapy and weekly Decadron. Lethargy could be in setting of new chemotherapy. (10) Encephalopathy acute: Acute metabolic encephalopathy. Resolved. (11) Uremia of renal origin: (12) Vomiting: Zofran as needed, Protonix daily. (13) Chronic idiopathic constipation: Does have history of chronic constipation. CT abdomen pelvis without contrast. Aggressive bowel regimen. Enema as needed. (14) Hyponatremia: Continue to monitor daily. Plan for dialysis as per nephrology team. If not improving can start on oral salt tablets. (15) Anemia: Most likely a combination of dilutional as patient is on IV fluids in setting of end-stage renal disease and multiple myeloma. Target hemoglobin more than 7. Transfuse 1 unit of PRBC. Appreciate iron panel, vitamin B12 folate levels. No concerns for bleed for now. Monitor hemoglobin daily for now. Plan Hypotension: Improving. Most likely combination of acute illness along with adrenal insufficiency. Steroid as above. Midodrine 10 mg 3 times daily. Goal blood pressure less than 140/90 mmHg with mean over 65. Hypoglycemia: In setting of adrenal insufficiency. Started on D10 fluids yesterday. For now we will continue to finish the bag. After that continue with IV hydrocortisone 100 mg every 12 hourly. Hypoglycemia protocol. Blood sugar check every 4 hours. Staphylococcus species bacteremia: 1 out of 3 bottles positive for Staphylococcus. Most likely a contaminant. Will wait for complete ID and specification. Repeat blood culture sent on 02/13. Continue to follow. CODE STATUS: Discussed with patient and family at bedside. with the DPOA. Full code. Advance to renal dialysis diet the patient as per speech evaluation. Protonix OPD prophylaxis Heparin 5000 every 12 hourly for DVT prophylaxis. Plan for the day: Hemoglobin stable. 8 today. Getting dialysis today. Electrolytes stable. Continue with current dose of hydrocortisone 5 mg 3 times daily, fludrocortisone 0.1 mg daily. Blood pressure stable. Goal blood pressure less than 140/90 mmHg with systolic of more than 100. Follow-up blood cultures. Awaiting sensitivities of gram-negative rods. Will plan for outpatient antibiotics accordingly. Continue with midodrine 5 mg 3 times daily. If blood pressures continue to remain more than 120 can line to transition them to as needed rather than scheduled. Continues physical therapy. Discharge plan: If patient continues to do well with physical therapy, hemoglobin, blood pressures and blood sugars remain stable along with negative blood cultures for next 48 hours can plan to discharge. PDMP PDMP Reviewed: Not Reviewed Attestations 2 Medical Necessity Statement*: Requires further hospitalization for management of gram-negative bacteremia while outpatient antibiotics are sought, anemia requiring blood transfusion and patient with new diagnosis of adrenal insufficiency while steroids were initiated, improving hypotension, hypoglycemia in a patient with recent diagnosis of multiple myeloma and end-stage renal disease. Diagnoses Gram-negative bacteremia R78.81 Adrenal insufficiency E27.40 Hypotension I95.9 Aspiration pneumonia of both lower lobes J69.0 Hypoglycemia E16.2 Generalized weakness R53.1 Lethargy R53.83 ESRD (end stage renal disease) N18.6 Multiple myeloma not having achieved remission C90.00 Multiple myeloma remission status: not in remission Encephalopathy acute G93.40 Uremia of renal origin N19 Vomiting R11.10 Chronic idiopathic constipation K59.04 Hyponatremia E87.1 Anemia, unspecified type D64.9 Anemia type: unspecified type
[2025-02-16] MEDS: acetaminophen 325 mg Tablet 650 MG PO ×2 (13:01→20:29)
[2025-02-16 16:38] LABS: Glucose Point of Care 99 mg/dL (70-110)
[2025-02-16] MEDS: pantoprazole 40 mg SDV IVP (20:29)
[2025-02-16] MEDS: vancomycin 500 MG in sodium chloride 0.9% (plus) 100 ML 200 MG IV (20:32)
[2025-02-16 21:19] LABS: Glucose Point of Care 111 mg/dL (70-110)
[2025-02-17 00:40] VITALS: BP 131/71; PULSE 58; RESP 12; TEMP 37.3; O2SAT 99
[2025-02-17] MEDS: piperacillin-tazobactam 3.375 GM in sodium chloride 0.9% (plus) 50 ML IV (01:05)
[2025-02-17 05:09] VITALS: PULSE 50
[2025-02-17 05:17] VITALS: BP 137/71; PULSE 56; RESP 13; TEMP 36.8; O2SAT 97
[2025-02-17] MEDS: levothyroxine 125 mcg Tablet PO (05:26)
[2025-02-17] MEDS: acetaminophen 325 mg Tablet 650 MG PO (05:29)
[2025-02-17 06:42] LABS: Basophils % 0.2 %; Eosinophils # 0.1 10^3/uL (0.0-0.8); Eosinophils % 1.7 %; Hematocrit 21.8 % (37-53); Lymphocytes # 0.7 10^3/uL (0.8-4.8); Lymphocytes % 10.8 %; Mean Corpuscular HGB Conc 31.7 g/dL (30-55); Mean Corpuscular Hemoglobin 28.9 pg (27-33); Mean Corpuscular Volume 91.2 fl (82-101); Monocytes # 0.4 10^3/uL (0.2-0.9); Monocytes % 6.1 %; Neutrophils # 5.04 10^3/uL (1.8-7.7); Neutrophils % 79.3 %; Nucleated Red Blood Cells % 0 %; Platelet Count 217 10^3/cmm (157-399); Red Blood Count 2.39 10^6/uL (3.85-5.65); Red Cell Distribution Width 15.9 % (12.1-15.1); White Blood Count 6.36 10^3/uL (3.29-11.43)
[2025-02-17 06:51] LABS: Glucose Point of Care 85 mg/dL (70-110)
[2025-02-17 07:31] VITALS: BP 132/68; PULSE 57; RESP 16; TEMP 36.7; O2SAT 95
--- NOTE | 2025-02-17 08:54 | PM.DCS ---
Discharge Providers Date of Admission: 02/11/25 18:15 Date of Discharge: February 17, 2025 Attending Provider at Admission: Babatunde Boykin MD Attending Provider at Discharge: Babatunde Boykin MD Primary Care Provider: Deanna Bansal MD Diagnoses at Discharge Discharge Diagnosis (1) Gram-negative bacteremia: Status: Acute (2) Adrenal insufficiency: Status: Acute (3) Hypotension: Status: Acute (4) Aspiration pneumonia of both lower lobes: Status: Acute (5) Hypoglycemia: Status: Acute (6) Generalized weakness: Status: Acute (7) Lethargy: Status: Acute (8) ESRD (end stage renal disease): Status: Acute (9) Multiple myeloma: Status: Acute Qualifiers: Multiple myeloma remission status: not in remission Qualified Code(s): C90.00 - Multiple myeloma not having achieved remission (10) Encephalopathy acute: Status: Acute (11) Uremia of renal origin: Status: Acute (12) Vomiting: Status: Inactive (13) Chronic idiopathic constipation: Status: Acute (14) Hyponatremia: Status: Acute (15) Anemia: Status: Acute Qualifiers: Anemia type: unspecified type Qualified Code(s): D64.9 - Anemia, unspecified Reason for Visit Reason for Visit: fatigue, weakness Hospital Course Hospital Course Manuel Parsons is a 84 year old male with recent history of multiple myeloma started on chemotherapy with the last 2 weeks, end-stage renal disease on hemodialysis started within last 1 month presented to the ER today with family at bedside because of generalized weakness, lethargy which has been worsening over the last 3 days. As per the family members patient was able to walk around, go back and forth from his dialysis with a walker by himself until Tuesday. On Tuesday, after dialysis he started becoming weaker, had an episode of vomiting and since then he has been more lethargic, has poor oral intake, has been tired appearing. While seen in the ER patient was laying comfortably in bed, sleeping but wakes up to have verbal communication. On waking up patient is awake and alert. He is able to participate in history taking. Denies any nausea, vomiting except 1 time, abdominal pain. Had a bowel movements last week. Denies any difficulty in breathing or pain. As per the family member's appetite has been getting poor as well. Patient was admitted to the hospital further evaluation and management of generalized weakness and lethargy along with hypotension and hypoglycemia. There is a concern for pneumonia with aspiration for which she was started on broad-spectrum antibiotics. On admission cortisol levels were checked and there was a concern for adrenal insufficiency for which she was started on IV steroids which were later transitioned over to oral hydrocortisone and fludrocortisone. In between he also required D10 fluids after which his blood glucose improved. During hospitalization he was continued on home dialysis schedule which she tolerated well. At first he was started on oral midodrine for hypotension which he responded well to along with oral steroids and has been transitioned over to midodrine as needed. His blood culture from admission were found to be 1 out of 4 bottles positive for Staphylococcus saprophyticus and pseudo fluorescence/putida. Staphylococcus considered to be a contaminant. Repeat blood cultures from 02/13 are so far negative. Culture sensitivities were appreciated and he is sensitive to oral ciprofloxacin which he is to continue for next 14 days morning and evening. During hospitalization he worked well with physical therapy. Safe discharge planning were discussed in detail with patient and family members and they wanted to be transitioned to home with home health which is being arranged. He has been discharged in hemodynamically stable condition on oral fludrocortisone 0.1 mg daily, hydrocortisone 5 mg 3 times a day along with midodrine 5 mg 3 times daily for a systolic blood pressure of less than 110 mmHg. He is been discharged on oral ciprofloxacin for next 14 days. He is to hold off on chemotherapy for next 14 days while he is on antibiotics. He is to take ciprofloxacin 500 mg daily given being on hemodialysis. Discharge Data Studies Completed and Pending Completed Studies During Hospitalization Category Date Time Status CT chest abdomen pelvis [[place] [id number] Cat Scan 02/11/25 18:11 Completed ] Stat CT head wo con* [id number] Stat Cat Scan 02/11/25 17:07 Completed XR chest 1V portable [id number] Stat Exams 02/11/25 15:16 Completed Pending at discharge Category Date Time Status Blood Culture AM LABS Lab 02/13/25 03:46 Results Blood Culture Stat Lab 02/16/25 10:01 Results Testosterone, Free Routine Lab 02/14/25 12:44 Received Urinalysis Stat Lab 02/11/25 15:16 Uncollected Urinalysis and Microscopic Stat Lab 02/11/25 18:14 Uncollected Urine Random Lytes Routine Lab 02/11/25 18:14 Uncollected Urine Random Sodium Routine Lab 02/11/25 18:13 Uncollected Radiology Impressions Chest X-Ray 02/11/25 15:16 IMPRESSION: 1. No acute cardiopulmonary finding. No change. Head CT 02/11/25 17:07 IMPRESSION: No acute intracranial abnormality. Senescent changes. Chest/Abdomen/Pelvis CT 02/11/25 18:11 IMPRESSION: 1. Bilateral lower lobe consolidation suspicious for pneumonia. 2. Small bilateral pleural effusions. 3. Moderate coronary arterial calcification. 4. Right jugular dual lumen catheter in place. 5. Diffuse osteopenia. No acute fracture detected. IMPRESSION: 1. Copious amount of fecal material within the rectum with circumferential thickening of the wall of the inferior rectum. This could be due to incomplete distension. However, an inflammatory or potentially neoplastic process cannot be excluded. Please correlate clinically. 2. Moderate amount of fecal material throughout the remainder of the colon. No significant bowel dilatation or evidence for obstruction. 3. [id number]-lm-[id number] sized hiatal hernia. 4. Diffuse osteopenia. No acute fracture detected. Microbiology 02/16/25 10:01 Blood Blood Culture - Preliminary NEGATIVE TO DATE 02/16/25 10:01 Blood Blood Culture - Preliminary NEGATIVE TO DATE 02/11/25 19:23 Blood Blood Culture - Final NO GROWTH AFTER 5 DAYS 02/11/25 18:42 Blood Blood Culture - Final Staphylococcus saprophyticus Pseudo fluorescens/putida 02/13/25 03:46 Blood Blood Culture - Preliminary NEGATIVE TO DATE 02/13/25 03:41 Blood Blood Culture - Preliminary NEGATIVE TO DATE Laboratory Results WBC 6.36 10^3/uL (3.29-11.43) 02/17/25 06:24 RBC 2.39 10^6/uL (3.85-5.65) L 02/17/25 06:24 Hgb 6.90 g/dL (11.27-16.99) L 02/17/25 06:24 Hct 21.8 % (37-53) L 02/17/25 06:24 MCV 91.2 fl (82-101) 02/17/25 06:24 MCH 28.9 pg (27-33) 02/17/25 06:24 MCHC 31.7 g/dL (30-55) 02/17/25 06:24 RDW 15.9 % (12.1-15.1) H 02/17/25 06:24 Plt Count 217 10^3/cmm (157-399) 02/17/25 06:24 MPV 10.0 fL (7.4-10.4) 02/17/25 06:24 Neut % (Auto) 79.3 % 02/17/25 06:24 Lymph % (Auto) 10.8 % 02/17/25 06:24 Mcduffie % (Auto) 6.1 % 02/17/25 06:24 Eos % (Auto) 1.7 % 02/17/25 06:24 Baso % (Auto) 0.2 % 02/17/25 06:24 Reticulocyte % (Auto) 1.6 % (0.5-2.0) 02/15/25 05:14 Neut # (Auto) 5.04 10^3/uL (1.8-7.7) 02/17/25 06:24 Lymph # (Auto) 0.7 10^3/uL (0.8-4.8) L 02/17/25 06:24 Mcduffie # (Auto) 0.4 10^3/uL (0.2-0.9) 02/17/25 06:24 Eos # (Auto) 0.1 10^3/uL (0.0-0.8) 02/17/25 06:24 Baso # (Auto) 0.0 10^3/uL (0.0-0.1) 02/17/25 06:24 Nucleated RBC % (auto) 0 % 02/17/25 06:24 Nucleated RBCs # 0.0 /100WBC 02/17/25 06:24 Haptoglobin 182.0 mg/L (30-200) 02/13/25 03:46 Sodium 131 mmol/L (136-145) L 02/16/25 03:16 Potassium 4.4 mmol/L (3.5-5.1) 02/16/25 03:16 Chloride 95 mmol/L (98-107) L 02/16/25 03:16 Carbon Dioxide 25 mmol/L (22-29) 02/16/25 03:16 Anion Gap 15.4 (5-19) 02/16/25 03:16 BUN 50 mg/dL (8-23) H 02/16/25 03:16 Creatinine 7.9 mg/dL (0.7-1.2) H* 02/16/25 03:16 GFR Calculation Not Reportable 02/16/25 03:16 Glucose 77 mg/dL (65-115) 02/16/25 03:16 POC Glucose 85 mg/dL (70-110) 02/17/25 06:45 Estimat Average Glucose 105 02/11/25 23:06 Hemoglobin A1c 5.3 % (4.0-6.0) 02/11/25 23:06 Calculated Osmolality 284 mOsm/kg (285-295) L 02/16/25 03:16 Lactic Acid 0.9 mmol/L (0.5-2.2) 02/11/25 23:06 Uric Acid 5.8 mg/dL (3.4-7.0) 02/12/25 06:20 Calcium 7.7 mg/dL (8.5-10.5) L 02/16/25 03:16 Phosphorus 2.8 mg/dL (2.5-4.5) 02/16/25 03:16 Magnesium 1.9 mg/dL (1.7-2.3) 02/16/25 03:16 Iron 42 ug/dL (59-158) L 02/12/25 06:20 TIBC 111 mcg/dl 02/12/25 06:20 % Saturation 37.8 % (20-50) 02/12/25 06:20 Unsat Iron Binding 69 ug/dL (112-347) L 02/12/25 06:20 Ferritin 2650 ng/mL (30-400) H 02/12/25 06:20 Total Bilirubin 0.3 mg/dL (0.15-1.2) 02/16/25 03:16 AST 13 U/L (0-40) 02/16/25 03:16 ALT 9 U/L (0-41) 02/16/25 03:16 Alkaline Phosphatase 105 U/L (40-130) 02/16/25 03:16 Ammonia 12 umol/L (16-60) L 02/11/25 18:18 Lactate Dehydrogenase 140 U/L (135-225) 02/13/25 03:46 Total Protein 7.6 g/dL (6.6-8.7) 02/16/25 03:16 Albumin 2.1 g/dL (3.5-5.2) L 02/16/25 03:16 Globulin 5.5 g/dL (1.3-4.6) H 02/16/25 03:16 Triglycerides 131 mg/dL (0-150) 02/12/25 06:20 Cholesterol 93 mg/dL (0-200) 02/12/25 06:20 LDL Cholesterol, Calc 44 mg/dL (50-129) L 02/12/25 06:20 HDL Cholesterol 23 mg/dL (60-100) L 02/12/25 06:20 LDL/HDL Ratio 1.91 RATIO (0.00-3.22) 02/12/25 06:20 Cholesterol/HDL Ratio 4.04 mg/dL (1.0-5.00) 02/12/25 06:20 Vitamin B12 642 pg/mL (232-1245) 02/11/25 23:06 25-OH Vitamin D Total 6 ng/mL (30-100) L 02/12/25 06:20 Folate 17.1 ng/mL (4.5-32.2) 02/12/25 06:20 Procalcitonin 0.90 ng/mL (0-0.5) H 02/12/25 06:20 TSH 2.19 uIU/mL (0.27-4.20) 02/11/25 15:24 Progesterone 0.050 ng/mL (0.2-1.4) L 02/14/25 05:13 Total Testosterone < 2.5 ng/dL (193-740) L 02/14/25 05:13 DHEA Sulfate 5 mcg/dL (3-225) 02/14/25 05:13 PTH Intact 127.0 pg/mL (15-65) H 02/16/25 03:16 Calcium (PTH Intact) 7.6 mg/dL (8.5-10.5) L 02/16/25 03:16 Random Cortisol 1.99 ug/dL (2.47-19.5) L 02/12/25 06:20 Nasal MRSA (PCR) Not detected (Negative) 02/12/25 14:51 Vancomycin Trough 14.5 ug/mL (10-15) 02/12/25 22:36 Random Vancomycin 16.2 ug/mL (20.0-40.0) L 02/16/25 03:16 Adenovirus (PCR) Not detected (NOT DETECT) 02/11/25 18: C. pneumoniae DNA (PCR) Not detected (NOT DETECT) 02/11/25 18: Coronavirus 229E (PCR) Not detected (NOT DETECT) 02/11/25 18:29 Hep Bs Antigen Non-reactive (Nonreactive) 02/11/25 18: Hep Bs Antibody < 3.5 (11.5-1000) L 02/11/25 18:18 Hepatitis C Antibody Non-reactive (Nonreactive) 02/11/25 19:23 Human Metapneumovir PCR Not detected (NOT DETECT) 02/11/25 18: Influenza A (H1) PCR Not detected (NOT DETECT) 02/11/25 18: Influ A (H1/09) PCR Not detected (NOT DETECT) 02/11/25 18: Influenza A (H3) PCR Not detected (NOT DETECT) 02/11/25 18: Influenza Type A (PCR) Not detected (NOT DETECT) 02/11/25 18: Influenza Type B (PCR) Not detected (NOT DETECT) 02/11/25 18: M. pneumoniae (PCR) Not detected (NOT DETECT) 02/11/25 18: Parainfluenza 1 (PCR) Not detected (NOT DETECT) 02/11/25 18: Parainfluenza 2 (PCR) Not detected (NOT DETECT) 02/11/25 18: Parainfluenza 3 (PCR) Not detected (NOT DETECT) 02/11/25 18: Parainfluenza 4 (PCR) Not detected (NOT DETECT) 02/11/25 18: RSV Type A (PCR) Not detected (NOT DETECT) 02/11/25 18: RSV Type B (PCR) Not detected (NOT DETECT) 02/11/25 18: Entero/Rhino (PCR) Not detected (NOT DETECT) 02/11/25 18: SARS-CoV-2 (PCR) Not detected (NOT DETECT) 02/11/25 18:29 Blood Type A Negative 02/13/25 08:32 Rho(D) Type Rh negative 05/14/25 08:32 Antibody Screen Negative 02/13/25 08:32 Crossmatch See Detail 02/13/25 08:32 Vitals Last Vital Signs Temp 98.0 F 02/17/25 07:31 Pulse 57 L 02/17/25 07:31 Resp 16 02/17/25 07:31 BP 132/68 02/17/25 07:31 Pulse Ox 95 02/17/25 07:31 O2 Del Method Room Air 02/17/25 07:31 FiO2 21 02/11/25 23:23 Discharge Plan Discharge Patient Disposition: Home Health Service Condition: Stable Prescriptions: New midodrine 5 mg Tablet 5 mg PO TID PRN (Reason: SBP less than 110 mmhg) Qty: 20 0RF hydrocortisone 10 mg Tablet 5 mg PO TID 30 Days Qty: 45 0RF fludrocortisone 0.1 mg Tablet 0.1 mg PO DAILY Qty: 30 0RF ciprofloxacin HCl 500 mg tablet 500 mg PO Q24H 14 Days Qty: 14 0RF Continued levothyroxine [Levo-T] 125 mcg tablet 125 mcg PO DAILY albuterol sulfate 90 mcg/actuation HFA aerosol inhaler 1 puff inhalation QID PRN (Reason: Shortness Of Breath) famotidine [Acid Senior Enlisted Advisor (famotidine)] 20 mg tablet 20 mg PO BID ferrous sulfate 325 mg (65 mg iron) Tablet 325 mg PO DAILY PreserVision AREDS-2 250-90-40-1 mg Capsule 1 tab PO BID polyethylene glycol 3350 [Miralax] 17 gram/dose powder 17 g PO DAILY PRN (Reason: Constipation) sucralfate 1 gram Tablet 1 g PO BID diphenhydramine HCl [Benadryl] 25 mg Capsule 25 mg PO TID PRN (Reason: Allergic Reaction) dexamethasone 20 mg tablet See Rx Instructions .ROUTE .COMPLEX Rx Instructions: Take 40mg orally weekly on days 1,8,15,22 of 28 days cycle. Take with food in the morning. ondansetron 4 mg tablet,disintegrating 4 mg PO Q6H PRN (Reason: nausea and vomiting) Qty: 14 0RF Changed cyanocobalamin (vitamin B-12) 100 mcg tablet 1,000 mcg PO DAILY 10 Days Qty: 0 0RF Held cyclophosphamide 50 mg tablet See Rx Instructions .ROUTE .COMPLEX Hold Instructions: Resume on 03/03/25. Rx Instructions: Take 600 mg orally during or after meal in the morning. Take weekly on days 1,8,15,22 of 28 day cycle. Discharge Orders: Discharge Order (Routine); Ordered 02/17/25 Ordered By: Babatunde Boykin Other Ambulatory Orders: DME: Walker (Order) Location: None Selected Ordered By: Babatunde Boykin Referrals: [facility] [Outside] Referral Note: We have faxed your information to the [facility] [employer] [facility]. Deanna Bansal MD [Primary Care Provider, Family Practice] - 7-10 days Referral Note: You will need to contact your primary care provider Dr. Bansal tomorrow to set up a follow up appointment in 7-10 days. Discharge Diet: Usual diet Discharge Activity: Resume usual activity and Increase activity as tolerated Patient Instructions: Ciprofloxacin (By mouth), Fludrocortisone Acetate (By mouth), Midodrine (By mouth), Hydrocortisone (By mouth), Community Acquired Pneumonia (DC), Bacteremia (DC), Opioid Safety Activity Restrictions/Additional Instructions: Take ciprofloxacin once daily which is the antibiotic for next 14 days. Do not take chemotherapy for multiple myeloma for next 2 weeks. Going forward takes hydrocortisone 5 mg 3 times a day every day. Takes fludrocortisone 0.1 mg daily. Please check your blood pressure daily at home and maintain a blood pressure diary. Follow-up with a primary care provider within next 2 weeks for adjustment of antihypertensive. You can take midodrine 5 mg 3 times a day as needed for a systolic blood pressure of less than 110 mmHg. Continue with your dialysis as before. Discharge Attestations Time Spent in Discharge Care*: greater than 30 min Specific Discharge Activities: educating patient, educating and/or supporting family/caregiver, discussing with pcp/other providers, discussing with employment case manager/social workers/dc planners, documenting/other paperwork and evaluating patient/reviewing data Status at Discharge: Cognitive status at discharge: cognitively intact, Behavioral status at discharge: cooperative, Functional status at discharge: uses cane/walker, Overall status at discharge: patient is back to baseline Quality Metrics Clinical Quality Measures [ No reported AMI, CVA or VTE this stay] Coding Level of Care Code 56988 Total time (in minutes) for Discharge: 70 Diagnoses Gram-negative bacteremia R78.81 Adrenal insufficiency E27.40 Hypotension I95.9 Aspiration pneumonia of both lower lobes J69.0 Hypoglycemia E16.2 Generalized weakness R53.1 Lethargy R53.83 ESRD (end stage renal disease) N18.6 Multiple myeloma not having achieved remission C90.00 Multiple myeloma remission status: not in remission Encephalopathy acute G93.40 Uremia of renal origin N19 Vomiting R11.10 Chronic idiopathic constipation K59.04 Hyponatremia E87.1 Anemia, unspecified type D64.9 Anemia type: unspecified type
[2025-02-17] MEDS: midodrine 5 mg TABLET PO (09:38)
[2025-02-17] MEDS: fludrocortisone 0.1 mg Tablet PO (09:39)
[2025-02-17] MEDS: b-complex-vitamin c Tablet 1 EACH PO (09:39)
[2025-02-17] MEDS: hydrocortisone 10 mg Tablet 5 MG PO (09:39)
[2025-02-17] MEDS: sucralfate 1 gm Tablet PO (09:39)
[2025-02-17 10:46] LABS: Glucose Point of Care 90 mg/dL (70-110)
[2025-02-17 11:08] VITALS: BP 150/76; PULSE 64; RESP 16; TEMP 37.1; O2SAT 95
--- NOTE | 2025-02-17 12:37 | PC.NURSE ---
Notified HOME and Sami states that he will deliver it soon.
--- NOTE | 2025-02-17 13:24 | PC.NURSE ---
Discharge delay due to awaiting arrival of walker from HOME. Charge nurse, TEDDY Joe, obtained a new order for the correct walker that was tall enough for the patient to use safely at home.
[2025-02-19 10:30] LABS: Testosterone, Free 0.1 pg/mL (6.0-73.0)
== END 2025-02-17 14:50 | disposition home health service (06) | DRG 177 ==
LOC: ER 17:52 → ER IP 18:16 → MEDSURG 02-12 10:54
PROVIDERS: Internal Medicine Nephrology; Admitting Provider Student in an Organized Health Care Education/Training Program; Emergency Provider Family Medicine; PCP Family Medicine; Visit Provider Student in an Organized Health Care Education/Training Program
DX: J69.0 Pneumonitis due to inhalation of food and vomit (principal); N18.6 End stage renal disease; R78.81 Bacteremia; E27.40 Unspecified adrenocortical insufficiency; C90.00 Multiple myeloma not having achieved remission; G93.40 Encephalopathy, unspecified; E87.1 Hypo-osmolality and hyponatremia; B96.5 Pseudomonas (aeruginosa) (mallei) (pseudomallei) as the cause of diseases classified elsewhere; I95.9 Hypotension, unspecified; E16.2 Hypoglycemia, unspecified; Z99.2 Dependence on renal dialysis; R39.2 Extrarenal uremia; K59.04 Chronic idiopathic constipation; D64.9 Anemia, unspecified; E03.9 Hypothyroidism, unspecified; K21.9 Gastro-esophageal reflux disease without esophagitis; R13.10 Dysphagia, unspecified; R07.89 Other chest pain; Z79.60 Long term (current) use of unspecified immunomodulators and immunosuppressants
CPT/HCPCS: 36415; 36416; 36430; 70450; 71045; 71250; 74176; 80053; 80061; 80202; 82140; 82306; 82310; 82533; 82607; 82627; 82728; 82746; 82962; 83010; 83036; 83540; 83550; 83605; 83615; 83690; 83735; 83970; 84100; 84144; 84145; 84402; 84403; 84443; 84550; 85014; 85018; 85025; 85045; 86706; 86803; 86850; 86900; 86920; 87040; 87077; 87150; 87186; 87205; 87340; 87486; 87581; 87633; 90935; 92507; 92523; 92526; 92610; 93005; 94664; 96361; 96372; 96374; 96375; 97110; 97162; 97530; 99285; J0461; J1644; J1720; J2270; J2405; J2470; J2543; J3370; J7030; J7040; J7799; J8499; J9999; P9016; Q3014; Q5105

== ENCOUNTER 2025-02-22 10:30 | Oncology outpatient (recurring) (ONCR) | payer MEDICARE, SELFPAY ==
[2025-02-06 15:04] LABS: Basophils % 0.3 %; Eosinophils % 1.4 %; Lymphocytes # 0.5 10^3/uL (0.8-4.8); Lymphocytes % 16.4 %; Mean Corpuscular HGB Conc 32.6 g/dL (30-55); Mean Corpuscular Hemoglobin 29.6 pg (27-33); Mean Corpuscular Volume 90.9 fl (82-101); Mean Platelet Volume 9.4 fL (7.4-10.4); Monocytes # 0.2 10^3/uL (0.2-0.9); Monocytes % 6.6 %; Neutrophils # 2.11 10^3/uL (1.8-7.7); Neutrophils % 73.6 %; Nucleated Red Blood Cells % 0 %; Platelet Count 192 10^3/cmm (157-399); Red Blood Count 2.53 10^6/uL (3.85-5.65); Red Cell Distribution Width 14.1 % (12.1-15.1); White Blood Count 2.87 10^3/uL (3.29-11.43)
[2025-02-06] MEDS: dexamethasone 4 mg Tablet 40 MG PO (15:07)
[2025-02-06 15:20] LABS: Alanine Aminotransferase 9 U/L (0-41); Albumin Level 2.4 g/dL (3.5-5.2); Alkaline Phosphatase 105 U/L (40-130); Anion Gap 9.7 (5-19); Aspartate Amino Transferase 15 U/L (0-40); Blood Urea Nitrogen 13 mg/dL (8-23); Calcium 8.1 mg/dL (8.5-10.5); Carbon Dioxide 33 mmol/L (22-29); Chloride 94 mmol/L (98-107); Globulin 8.1 g/dL (1.3-4.6); Glucose 103 mg/dL (65-115); Osmolality Calculated 276 mOsm/kg (285-295); Potassium 3.7 mmol/L (3.5-5.1); Sodium 133 mmol/L (136-145); Total Bilirubin 0.7 mg/dL (0.15-1.2); Total Protein 10.5 g/dL (6.6-8.7)
[2025-02-06] MEDS: bortezomib 3.5 mg SDV 3.3 MG SUBCUT (15:38)
[2025-02-06 15:40] VITALS: BP 114/64; PULSE 84; RESP 18; TEMP 36.4; O2SAT 97
[2025-02-06 16:08] LABS: Reticulocyte % 0.8 % (0.5-2.0)
[2025-02-06 16:27] LABS: Lactate Dehydrogenase 130 U/L (135-225)
[2025-02-06 16:29] LABS: Immunoglobulin IGA < 50 mg/dL (70-400); Immunoglobulin IGM < 25 mg/dL (40-230)
[2025-02-06 16:31] LABS: Iron 61 ug/dL (59-158); Percent Saturation 49.1 % (20-50); Total Iron Binding Capacity 124 mcg/dl; Unsaturated Iron Binding 63 ug/dL (112-347)
[2025-02-06 16:41] LABS: Immunoglobulin IGG 6599 mg/dL (700-1600)
[2025-02-06 16:45] LABS: Ferritin 1608 ng/mL (30-400)
[2025-02-06 16:47] LABS: Vitamin B12 778 pg/mL (232-1245)
[2025-02-06 17:08] LABS: Folate Level 8.8 ng/mL (4.5-32.2)
[2025-02-07 07:20] LABS: PROTEIN, TOTAL 11.2 g/dL (6.1-8.1)
[2025-02-07 15:59] LABS: KAPPA LIGHT CHAIN, FREE, SERUM 47.9 mg/L (3.3-19.4); KAPPA/LAMBDA LIGHT CHAINS FREE <0.01 (0.26-1.65); LAMBDA LIGHT CHAIN, FREE, SERU 12686.9 mg/L (5.7-26.3)
[2025-02-07 20:25] LABS: ABNORMAL PROTEIN BAND 1 6.1 g/dL (NONE DETECTED); ALBUMIN 3.1 g/dL (3.8-4.8); ALPHA 1 GLOBULIN 0.5 g/dL (0.2-0.3); ALPHA 2 GLOBULIN 0.9 g/dL (0.5-0.9); BETA 1 GLOBULIN 0.3 g/dL (0.4-0.6); BETA 2 GLOBULIN 0.3 g/dL (0.2-0.5); GAMMA GLOBULIN 6.2 g/dL (0.8-1.7)
[2025-02-20 11:07] LABS: Basophils % 0.5 %; Eosinophils # 0.2 10^3/uL (0.0-0.8); Eosinophils % 3.6 %; Lymphocytes # 0.5 10^3/uL (0.8-4.8); Lymphocytes % 8.1 %; Mean Corpuscular HGB Conc 31.2 g/dL (30-55); Mean Corpuscular Hemoglobin 29.6 pg (27-33); Mean Corpuscular Volume 94.9 fl (82-101); Mean Platelet Volume 9.2 fL (7.4-10.4); Monocytes # 0.5 10^3/uL (0.2-0.9); Neutrophils # 5.06 10^3/uL (1.8-7.7); Neutrophils % 78.9 %; Nucleated Red Blood Cells % 0 %; Platelet Count 204 10^3/cmm (157-399); Red Blood Count 2.74 10^6/uL (3.85-5.65); White Blood Count 6.41 10^3/uL (3.29-11.43)
[2025-02-20 11:25] LABS: Alanine Aminotransferase 9 U/L (0-41); Albumin Level 1.9 g/dL (3.5-5.2); Alkaline Phosphatase 94 U/L (40-130); Anion Gap 17.1 (5-19); Aspartate Amino Transferase 15 U/L (0-40); Blood Urea Nitrogen 34 mg/dL (8-23); Calcium 7.5 mg/dL (8.5-10.5); Carbon Dioxide 23 mmol/L (22-29); Chloride 95 mmol/L (98-107); Creatinine Clr Calc Pharmacy 9.1505; Globulin 5.6 g/dL (1.3-4.6); Glucose 85 mg/dL (65-115); Osmolality Calculated 279 mOsm/kg (285-295); Potassium 4.1 mmol/L (3.5-5.1); Sodium 131 mmol/L (136-145); Total Bilirubin 0.2 mg/dL (0.15-1.2); Total Protein 7.5 g/dL (6.6-8.7)
== END 2025-03-02 23:59 | disposition home or self-care (01) ==
LOC: ONCMED 12:02 → RAD 02-23 → ONCMED 02-26 09:28
PROVIDERS: Internal Medicine; PCP Family Medicine; Visit Provider Family Medicine
DX: Z53.9 Procedure and treatment not carried out, unspecified reason (principal)
CPT/HCPCS: 36415; 80053; 82607; 82728; 82746; 82784; 83010; 83540; 83550; 83615; 83883; 84155; 84165; 85025; 85045; 86334; 96401; 99204; 99213; J8540; J9041

== ENCOUNTER 2025-02-23 13:08 | Inpatient (IN) | payer MEDICARE, SELFPAY ==
[2025-02-23] VITALS (12 sets, daily range): BP systolic 64–129; BP diastolic 36–99; PULSE 90–121; RESP 18–120; TEMP 37–39.3; O2SAT 91–98; BMI 25.6; BMI 25.0
--- NOTE | 2025-02-23 13:35 | XRR_ITS ---
PROCEDURE INFORMATION: Exam: XR Chest Exam date and time: 02/23/2025 2:11 PM Age: 84 years old Clinical indication: Cough; Prior surgery; Surgery date: 6+ months; Surgery type: Dialysis cath TECHNIQUE: Imaging protocol: Radiologic exam of the chest. Views: 1 view. COMPARISON: CT chest abdpel [id number] 02/11/2025 8:08 PM FINDINGS: Tubes, catheters and devices: Dialysis catheter terminates in the right atrium. Lungs: Bilateral lower lobe pulmonary infiltrates. Pleural spaces: Unremarkable. No pleural effusion. No pneumothorax. Heart/Mediastinum: See Vasculature finding. Vasculature: Mild cardiomegaly and uncoiling of the thoracic aorta. Degenerative changes of the shoulders. Bones/joints: See Vasculature finding. XR/XR chest 1V portable [id number] IMPRESSION: Bibasilar atelectasis or infiltrates.
--- NOTE | 2025-02-23 13:38 | ECG_ITS ---
[facility] Test Date: 2025-02-23 Pat Name: Manuel Parsons Department: Room: Gender: Male Naturalization Examiner: : 1940 Requested By: Lizzy Mayers Order Number: [id number] Reading MD: FADI MORILLO Measurements Intervals [place] Rate: 117 P: 165 MT: 189 QRS: -84 QRSD: 90 T: 28 QT: 326 QTc: 456 Interpretive Statements SINUS TACHYCARDIA PATTERN CONSISTENT WITH PULMONARY DISEASE LEFT ANTERIOR FASCICULAR BLOCK [QRS AXIS <= -45, QR IN I, RS IN II] INFERIOR MYOCARDIAL INFARCTION , PROBABLY OLD [40+ ms Q WAVE AND/OR ST/T ABNORMALITY IN II/aVF] Compared to ECG 02/16/2025 08:33:50 Myocardial infarct finding now present Sinus rhythm no longer present First degree AV block no longer present Electronically Signed On 02-25-2025 19:06:27 CDT by FADI MORILLO [id number]
--- NOTE | 2025-02-23 13:47 | ED_ITS ---
HPI - Weakness 2 General: Chief complaint: Weakness Stated complaint: weakness Time Seen by Provider: 02/23/25 13:16 History of Present Illness: 84-year-old male past medical history of multiple myeloma, ESRD on hemodialysis Tuesday last time Tuesday, recent hospitalization due to aspiration pneumonia and gram-negative bacteremia Today's presenting with generalized weakness fatigue and shakiness and chills that started today, reports cough productive of white sputum for the past several weeks but denies any associated chest pain or shortness of breath denies any other specific symptoms no abdominal pain no nausea no vomiting no diarrhea, states he no longer makes urine, has chronic left knee pain. checked his temperature and it was 103 Associated symptoms: Reports chills; Denies chest pain, fever(s), headache(s), nausea or vomiting Review of Systems 2 Const: Reports: chills and fatigue; Denies: fever(s) Eyes: Denies: blurry vision ENMT: Denies: throat pain Card: Denies: chest pain, palpitations or edema Resp: Reports: productive cough; Denies: dyspnea or pain on inspiration GI: Denies: abdominal pain, nausea, vomiting or diarrhea : Denies: flank pain Musc: Denies: neck pain or back pain Skin/Breast: Denies: rash Neuro: Denies: headache(s), numbness in extremities or weakness in extremities PFSH ED 2 PFSH: Medical History (Updated 02/23/25 @ 15:33 by Lizzy Mayers MD) Chronic idiopathic constipation 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 Multiple myeloma GERD (gastroesophageal reflux disease) Anemia History of colon polyps Hx of echocardiogram 03/22/2024 Surgical History (Updated 02/18/25 @ 00:00 by JULI Bran) History of esophagogastroduodenoscopy (EGD) History of colonoscopy Hx laparoscopic cholecystectomy 06/07/2013 Hx of prostatectomy Social History Smoking and tobacco/nicotine status: never used tobacco/nicotine Alcohol intake: never Substance/Drug Use: never Household members: spouse Physical Exam 2 Narrative: EXAM NARRATIVE: GEN: no acute distress, sitting up instretcher, mildly ill appearing HEENT: -Head: NC/AT; -Eyes: PERRL, EOMI. No discharge or redn ess; -Ears: External ears are normal. -Nose: Normal nares. -Mouth and throat: MMM. Normal gums, muc kim, palate,. Good dentition. NECK: Supple, with no masses. CV: regular tachycardia, no m/r/g. LUNGS: CTAB, no w/r/c. ABD: Soft, NT/ND, NBS, no masses or organomegaly. SKIN: right IJ dialysis catheter in place, no erythema, swelling, or tenderness, otherwise Warm, well perfused. No skin rashes or abnormal lesions. MSK: No deformities EXT: No clubbing, cyanosis, or edema. NEURO: GCS 15, alert and oriented, Normal muscle strength and tone. No focal deficits. PSYCH: Good Judgment. AOx3. Normal memory, mood, and affect. Course 2 Reevaluation(s): Reevaluation #1: Concern for possible pneumonia on the chest x-ray, will initiate antibiotics cefepime and vancomycin, administer 500 mL fluid bolus, due to unsure of hemodynamic status will not give a full 30 cc/kg IV fluid bolus. Troponin elevation likely ESRD related as patient has no chest pain. Time: 14:27 Vital Signs: Vital signs: Vital Signs Temperature 98.6 F 02/23/25 13:08 Pulse Rate 108 H 02/23/25 15:00 Respiratory Rate 18 02/23/25 15:00 Blood Pressure 117/65 02/23/25 15:00 Pulse Oximetry 94 02/23/25 15:00 Oxygen Delivery Me thod Room Air 02/23/25 15:00 MDM - Weakness Medical Decision Making Workup remarkable for mildly elevated lactic, no obvious source of infection chest x-ray is abnormal however CT chest demonstrates no obvious pneumonia, there is no leukocytosis. Troponin elevated but likely ESRD related. He did have a fever at home and appears to be having shaking chills we will admit patient for observation for fever. Patient and family in agreement. Case discussed with hospitalist who accepts admission. Lab Data 02/23/25 13:50 02/23/25 13:50 Radiology Impressions Chest X-Ray 02/23/25 13:35 IMPRESSION: Bibasilar atelectasis or infiltrates. Chest CT 02/23/25 14:27 IMPRESSION: Small/moderate effusions. Compressive bibasilar atelectasis. Laboratory Results WBC 5.87 10^3/uL (3.29-11.43) 02/23/25 13:50 RBC 3.17 10^6/uL (3.85-5.65) L 02/23/25 13:50 Hgb 9.20 g/dL (11.27-16.99) L 02/23/25 13:50 Hct 29.3 % (37-53) L 02/23/25 13:50 MCV 92.4 fl (82-101) 02/23/25 13:50 MCH 29.0 pg (27-33) 02/23/25 13:50 MCHC 31.4 g/dL (30-55) 02/23/25 13:50 RDW 17.0 % (12.1-15.1) H 02/23/25 13:50 Plt Count 184 10^3/cmm (157-399) 02/23/25 13:50 MPV 9.3 fL (7.4-10.4) 02/23/25 13:50 Neut % (Auto) 82.7 % 02/23/25 13:50 Lymph % (Auto) 7.2 % 02/23/25 13:50 [place] % (Auto) 7.0 % 02/23/25 13:50 Eos % (Auto) 1.2 % 02/23/25 13:50 Baso % (Auto) 0.7 % 02/23/25 13:50 Neut # (Auto) 4.86 10^3/uL (1.8-7.7) 02/23/25 13:50 Lymph # (Auto) 0.4 10^3/uL (0.8-4.8) L 02/23/25 13:50 [place]on # (Auto) 0.4 10^3/uL (0.2-0.9) 02/23/25 13:50 Eos # (Auto) 0.1 10^3/uL (0.0-0.8) 02/23/25 13:50 Baso # (Auto) 0.0 10^3/uL (0.0-0.1) 02/23/25 13:50 Nucleated RBC % (auto) 0 % 02/23/25 13:50 Nucleated RBCs # 0.0 /100WBC 02/23/25 13:50 PT 14.60 SECONDS (12.1-14.9) 02/23/25 13:50 INR 1.06 (0.8-1.2) 02/23/25 13:50 APTT 29.7 SECONDS (23.9-36.7) 02/23/25 13:50 Sodium 135 mmol/L (136-145) L 02/23/25 13:50 Potassium 3.5 mmol/L (3.5-5.1) 02/23/25 13:50 Chloride 94 mmol/L (98-107) L 02/23/25 13:50 Carbon Dioxide 27 mmol/L (22-29) 02/23/25 13:50 Anion Gap 17.5 (5-19) 02/23/25 13:50 BUN 14 mg/dL (8-23) 02/23/25 13:50 Creatinine 5.5 mg/dL (0.7-1.2) H 02/23/25 13:50 GFR Calculation Not Reportable 02/23/25 13:50 Glucose 65 mg/dL (65-115) 02/23/25 13:50 Calculated Osmolality 279 mOsm/kg (285-295) L 02/23/25 13:50 Lactic Acid 2.4 mmol/L (0.5-2.2) H 02/23/25 13:50 Calcium 7.9 mg/dL (8.5-10.5) L 02/23/25 13:50 Magnesium 1.7 mg/dL (1.7-2.3) 02/23/25 13:50 Total Bilirubin 0.3 mg/dL (0.15-1.2) 02/23/25 13:50 AST 23 U/L (0-40) 02/23/25 13:50 ALT 11 U/L (0-41) 02/23/25 13:50 Alkaline Phosphatase 96 U/L (40-130) 02/23/25 13:50 Troponin T Baseline 147 ng/L (0-15) H* 02/23/25 13:50 C-Reactive Protein 187.7 mg/L (0.0-4.9) H 02/23/25 13:50 NT-Pro-B Natriuret Pep 61317 pg/mL (0-450) H 02/23/25 13:50 Total Protein 9.1 g/dL (6.6-8.7) H 02/23/25 13:50 Albumin 2.4 g/dL (3.5-5.2) L 02/23/25 13:50 Globulin 6.7 g/dL (1.3-4.6) H 02/23/25 13:50 Procalcitonin 1.28 ng/mL (0-0.5) H 02/23/25 13:50 TSH 2.17 uIU/mL (0.27-4.20) 02/23/25 13:50 Influenza A (PCR) Negative (Negative) 02/23/25 13:49 Influenza Type B (PCR) Negative (Negative) 02/23/25 13:49 RSV (PCR) Negative (Negative) 02/23/25 13:49 SARS-CoV-2 (PCR) Negative (Negative) 02/23/25 13:49 All radiology interpretation(s) finalized by discharge Discharge Plan Discharge Patient Disposition: Admitted As Inpatient Clinical Impression: Fever Condition: Stable Coding Level of Care Code ED Safety And Security Officer for Chg Fwd Related Data Home Medications ?Medication ?Instructions ?Recorded ?Confirmed albuterol sulfate 90 mcg/actuation 1 puff inhalation Q ID PRN 11/05/24 02/23/25 aerosol inhaler Shortness Of Breath levothyroxine 125 mcg tablet 125 mcg PO DAILY 11/05/24 02/23/25 (Levo-T) ferrous sulfate 325 mg (65 mg 325 mg PO DAILY 12/29/24 02/23/25 iron) tablet polyethylene glycol 3350 17 17 g PO DAILY PRN Constipa tion 12/29/24 02/23/25 gram/dose oral powder (Miralax) vit C 250 mg-vit E 90 mg-zinc 40 1 tab PO BID 12/29/24 02/23/25 mg-copper 1 [id number]-[id number] capsule (PreserVision AREDS-2) famotidine 20 mg tablet (Acid 20 mg PO BID 02/06/25 Cut To Length Operator (famotidine)) cyclophosphamide 50 mg tablet See Rx Instructions .Rou te .COMPLEX 02/09/25 02/23/25 Held on 02/17/25. Instructions: Resume on 03/03/25. dexamethasone 20 mg tablet See Rx Instructions .Route .COMPLEX 02/09/25 02/23/25 diphenhydramine HCl 25 mg capsule 25 mg PO TID PRN All ergic Reaction 02/09/25 02/23/25 (Benadryl) sucralfate 1 gram tablet 1 g PO BID 02/09/25 02/23/25 Previous Rx's ?Medication ?Instructions ?Recorded ondansetron 4 mg disintegrating 4 mg PO Q6H PRN nausea and 02/09/25 tablet vomiting #14 tabs ciprofloxacin HCl 500 mg tablet 500 mg PO Q24H 14 days #14 tabs 02/17/25 cyanocobalamin (vitamin B-12) 100 1,000 mcg (10 x 100 mcg) PO DAILY 02/17/25 mcg tablet 10 days #0 tabs fludrocortisone 0.1 mg tablet 0.1 mg PO DAILY #30 tabs 02/17/25 hydrocortisone 10 mg tablet 5 mg (1/2 x 10 mg) PO TID 30 days 02/17/25 #45 tabs midodrine 5 mg tablet 5 mg PO TID PRN SBP less wisam n 110 02/17/25 mmhg #20 tabs Allergies Allergy/AdvReac Type Severity Reaction Status Date / Time grass pollen Allergy Unknown Verified 02/20/25 11:16 house dust Allergy Unknown Verified 02/20/25 11:16 mold Allergy Unknown Verified 02/20/25 11:16 grass oil Allergy Unknown Uncoded 02/20/25 11:16 sycamore tree Allergy Unknown Uncoded 02/20/25 11:16
[2025-02-23 14:02] LABS: Basophils % 0.7 %; Eosinophils # 0.1 10^3/uL (0.0-0.8); Eosinophils % 1.2 %; Hematocrit 29.3 % (37-53); Lymphocytes # 0.4 10^3/uL (0.8-4.8); Lymphocytes % 7.2 %; Mean Corpuscular HGB Conc 31.4 g/dL (30-55); Mean Corpuscular Volume 92.4 fl (82-101); Mean Platelet Volume 9.3 fL (7.4-10.4); Monocytes # 0.4 10^3/uL (0.2-0.9); Neutrophils # 4.86 10^3/uL (1.8-7.7); Neutrophils % 82.7 %; Nucleated Red Blood Cells % 0 %; Platelet Count 184 10^3/cmm (157-399); Red Blood Count 3.17 10^6/uL (3.85-5.65); White Blood Count 5.87 10^3/uL (3.29-11.43)
[2025-02-23 14:12] LABS: INR 1.06 (0.8-1.2)
[2025-02-23 14:13] LABS: Partial Thromboplastin Time 29.7 SECONDS (23.9-36.7)
[2025-02-23 14:20] LABS: Lactic Sepsis W/Reflex 2.4 mmol/L (0.5-2.2)
[2025-02-23 14:26] LABS: Troponin(5th) Baseline 147 ng/L (0-15)
--- NOTE | 2025-02-23 14:27 | CTR_ITS ---
PROCEDURE INFORMATION: Exam: CT Chest Without Contrast; Diagnostic Exam date and time: 02/23/2025 2:40 PM Age: 84 years old Clinical indication: Cough; Prior surgery; Surgery date: 6+ months; Surgery type: Dialysis cath; HX of bone cancer TECHNIQUE: Imaging protocol: Diagnostic computed tomography of the chest without contrast. Radiation optimization: All CT scans at this facility use at least one of these dose optimization techniques: automated exposure control; mA and/or kV adjustment per patient size (includes targeted exams where dose is matched to clinical indication); or iterative reconstruction. COMPARISON: [place] [id number] 02/11/2025 8:08 PM RADIATION DOSE METRICS: Total DLP (mGy-cm): 571.48 FINDINGS: Lungs: Dependent atelectasis in each lower lobe, [id number]-[id number]-right. Pleural spaces: Small bilateral pleural effusions. Small bilateral pleural effusions. Heart: Unremarkable. No cardiomegaly. No pericardial effusion. Lymph nodes: Unremarkable. No enlarged lymph nodes. Vasculature: Unremarkable. No aortic aneurysm. Diaphragm: Moderate hiatal hernia. Gallbladder and biliary ducts: Cholecystectomy. Bones/joints: Unremarkable. No acute fracture. Soft tissues: Unremarkable. CT/CT chest wo con [id number] IMPRESSION: Small/moderate effusions. Compressive bibasilar atelectasis.
[2025-02-23 14:35] LABS: Influenza A NEGATIVE (Negative); Influenza B NEGATIVE (Negative); Respiratory Syncytial Virus Ce NEGATIVE (Negative); SARS-CoV-2 PCR NEGATIVE (Negative)
[2025-02-23 14:47] LABS: Alanine Aminotransferase 11 U/L (0-41); Albumin Level 2.4 g/dL (3.5-5.2); Alkaline Phosphatase 96 U/L (40-130); Anion Gap 17.5 (5-19); Aspartate Amino Transferase 23 U/L (0-40); Blood Urea Nitrogen 14 mg/dL (8-23); C Reactive Protein 187.7 mg/L (0.0-4.9); Calcium 7.9 mg/dL (8.5-10.5); Carbon Dioxide 27 mmol/L (22-29); Chloride 94 mmol/L (98-107); Creatinine Clr Calc Pharmacy 11.9856; Globulin 6.7 g/dL (1.3-4.6); Glucose 65 mg/dL (65-115); Magnesium 1.7 mg/dL (1.7-2.3); Osmolality Calculated 279 mOsm/kg (285-295); Potassium 3.5 mmol/L (3.5-5.1); Sodium 135 mmol/L (136-145); Total Bilirubin 0.3 mg/dL (0.15-1.2); Total Protein 9.1 g/dL (6.6-8.7)
[2025-02-23 14:48] LABS: NT Pro B Type Natriuretic Pept 31339 pg/mL (0-450); Procalcitonin 1.28 ng/mL (0-0.5); Thyroid Stimulating Hormone 2.17 uIU/mL (0.27-4.20)
[2025-02-23] MEDS: cefepime 1,000 mg SDV 2000 MG IVP (14:57)
[2025-02-23] MEDS: sodium chloride 0.9% 500 ML 999 ML IV (14:57)
[2025-02-23 15:45] LABS: Reflex Lactate Order REFLEX LACTIC ORDERD
--- NOTE | 2025-02-23 15:50 | ED_ITS ---
HPI - Weakness 2 General: Chief complaint: Weakness Stated complaint: weakness Time Seen by Provider: 02/23/25 13:16 PFSH ED 2 PFSH: Medical History Chronic idiopathic constipation 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 Multiple myeloma GERD (gastroesophageal reflux disease) Anemia History of colon polyps Hx of echocardiogram 03/22/2024 Surgical History History of esophagogastroduodenoscopy (EGD) History of colonoscopy Hx laparoscopic cholecystectomy 06/07/2013 Hx of prostatectomy Social History Smoking and tobacco/nicotine status: never used tobacco/nicotine Alcohol intake: never Substance/Drug Use: never Household members: spouse Course 2 Vital Signs: Vital signs: Vital Signs Temperature 102.7 F H 02/23/25 20:00 Pulse Rate 100 02/23/25 20:00 Respiratory Rate 21 H 02/23/25 20:00 Blood Pressure 114/67 02/23/25 20:00 Pulse Oximetry 93 02/23/25 20:00 Oxygen Delivery Me thod Room Air 02/23/25 20:00 MDM - Weakness Lab Data 02/23/25 13:50 02/23/25 13:50 Radiology Impressions Chest X-Ray 02/23/25 13:35 IMPRESSION: Bibasilar atelectasis or infiltrates. Chest CT 02/23/25 14:27 IMPRESSION: Small/moderate effusions. Compressive bibasilar atelectasis. Laboratory Results WBC 5.87 10^3/uL (3.29-11.43) 02/23/25 13:50 RBC 3.17 10^6/uL (3.85-5.65) L 02/23/25 13:50 Hgb 9.20 g/dL (11.27-16.99) L 02/23/25 13:50 Hct 29.3 % (37-53) L 02/23/25 13:50 MCV 92.4 fl (82-101) 02/23/25 13:50 MCH 29.0 pg (27-33) 02/23/25 13:50 MCHC 31.4 g/dL (30-55) 02/23/25 13:50 RDW 17.0 % (12.1-15.1) H 02/23/25 13:50 Plt Count 184 10^3/cmm (157-399) 02/23/25 13:50 MPV 9.3 fL (7.4-10.4) 02/23/25 13:50 Neut % (Auto) 82.7 % 02/23/25 13:50 Lymph % (Auto) 7.2 % 02/23/25 13:50 [place] % (Auto) 7.0 % 02/23/25 13:50 Eos % (Auto) 1.2 % 02/23/25 13:50 Baso % (Auto) 0.7 % 02/23/25 13:50 Neut # (Auto) 4.86 10^3/uL (1.8-7.7) 02/23/25 13:50 Lymph # (Auto) 0.4 10^3/uL (0.8-4.8) L 02/23/25 13:50 [place] # (Auto) 0.4 10^3/uL (0.2-0.9) 02/23/25 13:50 Eos # (Auto) 0.1 10^3/uL (0.0-0.8) 02/23/25 13:50 Baso # (Auto) 0.0 10^3/uL (0.0-0.1) 02/23/25 13:50 Nucleated RBC % (auto) 0 % 02/23/25 13:50 Nucleated RBCs # 0.0 /100WBC 02/23/25 13:50 PT 14.60 SECONDS (12.1-14.9) 02/23/25 13:50 INR 1.06 (0.8-1.2) 02/23/25 13:50 APTT 29.7 SECONDS (23.9-36.7) 02/23/25 13:50 Sodium 135 mmol/L (136-145) L 02/23/25 13:50 Potassium 3.5 mmol/L (3.5-5.1) 02/23/25 13:50 Chloride 94 mmol/L (98-107) L 02/23/25 13:50 Carbon Dioxide 27 mmol/L (22-29) 02/23/25 13:50 Anion Gap 17.5 (5-19) 02/23/25 13:50 BUN 14 mg/dL (8-23) 02/23/25 13:50 Creatinine 5.5 mg/dL (0.7-1.2) H 02/23/25 13:50 GFR Calculation Not Reportable 02/23/25 13:50 Glucose 65 mg/dL (65-115) 02/23/25 13:50 Calculated Osmolality 279 mOsm/kg (285-295) L 02/23/25 13:50 Lactic Acid 2.4 mmol/L (0.5-2.2) H 02/23/25 13:50 Calcium 7.9 mg/dL (8.5-10.5) L 02/23/25 13:50 Magnesium 1.7 mg/dL (1.7-2.3) 02/23/25 13:50 Total Bilirubin 0.3 mg/dL (0.15-1.2) 02/23/25 13:50 AST 23 U/L (0-40) 02/23/25 13:50 ALT 11 U/L (0-41) 02/23/25 13:50 Alkaline Phosphatase 96 U/L (40-130) 02/23/25 13:50 Troponin T Baseline 147 ng/L (0-15) H* 02/23/25 13:50 C-Reactive Protein 187.7 mg/L (0.0-4.9) H 02/23/25 13:50 NT-Pro-B Natriuret Pep 51388 pg/mL (0-450) H 02/23/25 13:50 Total Protein 9.1 g/dL (6.6-8.7) H 02/23/25 13:50 Albumin 2.4 g/dL (3.5-5.2) L 02/23/25 13:50 Globulin 6.7 g/dL (1.3-4.6) H 02/23/25 13:50 Procalcitonin 1.28 ng/mL (0-0.5) H 02/23/25 13:50 TSH 2.17 uIU/mL (0.27-4.20) 02/23/25 13:50 Adenovirus (PCR) Not detected (NOT DETECT) 02/23/25 13:49 C. pneumoniae DNA (PCR) Not detected (NOT DETECT) 02/23/25 13:49 Coronavirus 229E (PCR) Not detected (NOT DETECT) 02/23/25 13:49 Human Metapneumovir PCR Not detected (NOT DETECT) 02/23/25 13:49 Influenza A (H1) PCR Not detected (NOT DETECT) 02/23/25 13:49 Influenza A (PCR) Negative (Negative) 02/23/25 13:49 Influ A (H1/09) PCR Not detected (NOT DETECT) 02/23/25 13:49 Influenza A (H3) PCR Not detected (NOT DETECT) 02/23/25 13:49 Influenza Type A (PCR) Not detected (NOT DETECT) 02/23/25 13:49 Influenza Type B (PCR) Negative (Negative) 02/23/25 13:49 Influenza Type B (PCR) Not detected (NOT DETECT) 02/23/25 13:49 M. pneumoniae (PCR) Not detected (NOT DETECT) 02/23/25 13:49 Parainfluenza 1 (PCR) Not detected (NOT DETECT) 02/23/25 13:49 Parainfluenza 2 (PCR) Not detected (NOT DETECT) 02/23/25 13:49 Parainfluenza 3 (PCR) Not detected (NOT DETECT) 02/23/25 13:49 Parainfluenza 4 (PCR) Not detected (NOT DETECT) 02/23/25 13:49 RSV (PCR) Negative (Negative) 02/23/25 13:49 RSV Type A (PCR) Not detected (NOT DETECT) 02/23/25 13:49 RSV Type B (PCR) Not detected (NOT DETECT) 02/23/25 13:49 Entero/Rhino (PCR) Not detected (NOT DETECT) 02/23/25 13:49 SARS-CoV-2 (PCR) Negative (Negative) 02/23/25 13:49 SARS-CoV-2 (PCR) Not detected (NOT DETECT) 02/23/25 13:49 Discharge Plan Discharge Patient Disposition: Admitted As Inpatient Admit Provider: Babatunde Boykin Clinical Impression: Fever Condition: Stable Coding Level of Care Code ED Section Crews Activities Clerk for Chg Fwd Related Data Home Medications ?Medication ?Instructions ?Recorded ?Confirmed albuterol sulfate 90 mcg/actuation 1 puff inhalation Q ID PRN 11/05/24 02/23/25 aerosol inhaler Shortness Of Breath levothyroxine 125 mcg tablet 125 mcg PO DAILY 11/05/24 02/23/25 (Levo-T) ferrous sulfate 325 mg (65 mg 325 mg PO DAILY 12/29/24 02/23/25 iron) tablet polyethylene glycol 3350 17 17 g PO DAILY PRN Constipa tion 12/29/24 02/23/25 gram/dose oral powder (Miralax) vit C 250 mg-vit E 90 mg-zinc 40 1 tab PO BID 12/29/24 02/23/25 mg-copper 1 is-sufgej-xzanul capsule (PreserVision AREDS-2) famotidine 20 mg tablet (Acid 20 mg PO BID 02/06/25 Seat Cover Installer (famotidine)) cyclophosphamide 50 mg tablet See Rx Instructions .Rou te .COMPLEX 02/09/25 02/23/25 Held on 02/17/25. Instructions: Resume on 03/03/25. dexamethasone 20 mg tablet See Rx Instructions .Route .COMPLEX 02/09/25 02/23/25 diphenhydramine HCl 25 mg capsule 25 mg PO TID PRN All ergic Reaction 02/09/25 02/23/25 (Benadryl) sucralfate 1 gram tablet 1 g PO BID 02/09/25 02/23/25 Previous Rx's ?Medication ?Instructions ?Recorded ondansetron 4 mg disintegrating 4 mg PO Q6H PRN nausea and 02/09/25 tablet vomiting #14 tabs ciprofloxacin HCl 500 mg tablet 500 mg PO Q24H 14 days #14 tabs 02/17/25 cyanocobalamin (vitamin B-12) 100 1,000 mcg (10 x 100 mcg) PO DAILY 02/17/25 mcg tablet 10 days #0 tabs fludrocortisone 0.1 mg tablet 0.1 mg PO DAILY #30 tabs 02/17/25 hydrocortisone 10 mg tablet 5 mg (1/2 x 10 mg) PO TID 30 days 02/17/25 #45 tabs midodrine 5 mg tablet 5 mg PO TID PRN SBP less wisam n 110 02/17/25 mmhg #20 tabs Allergies Allergy/AdvReac Type Severity Reaction Status Date / Time grass pollen Allergy Unknown Verified 02/20/25 11:16 house dust Allergy Unknown Verified 02/20/25 11:16 mold Allergy Unknown Verified 02/20/25 11:16 grass oil Allergy Unknown Uncoded 02/20/25 11:16 sycamore tree Allergy Unknown Uncoded 02/20/25 11:16
[2025-02-23 16:10] LABS: Troponin 5 2HR 144.9 ng/L (0-15); Troponin 5 2HR Delta -2.1 ABS# (0-10)
--- NOTE | 2025-02-23 16:10 | PC.NURSE ---
Pt report called to [facility] ESPINALsurgery center administrator.
[2025-02-23 17:14] LABS: Lactic Acid level (Lactate) 1.8 mmol/L (0.5-2.2)
--- NOTE | 2025-02-23 17:31 | P.HP_ITS ---
Providers/Chief Complaint 2 Admitting Physician: Babatunde Boykin MD Primary Care Provider: Deanna Bansal MD Chief Complaint: weakness History of Present Illness Manuel Parsons is a 84 year old male with recent history of multiple myeloma started on chemotherapy with the last 2 weeks, end-stage renal disease on hemodialysis started within last 1 month , recently admitted here between 02/11- 02/17 when he had presented with generalized weakness, lethargy. Patient was admitted to the hospital further evaluation and management of generalized weakness and lethargy along with hypotension and hypoglycemia. There is a concern for pneumonia with aspiration for which she was started on broad- spectrum antibiotics. He was diagnosed with adrenal insufficiency and started on steroids. His blood culture from admission were found to be 1 out of 4 bottles positive for Staphylococcus saprophyticus and pseudo fluorescence/putida. Staphylococcus considered to be a contaminant. Repeat blood cultures from 02/13 were negative. he was discharged on Ciprofloxacin 500mg bid based on sensitivity results and recommended to take it for 14 days. Chemotherapy was held this week due to hospitalization. He returned to the hospital today due to generalized weakness fatigue and shakiness and chills cough productive of white sputum for the past several week. He was noted to be febrile to 101.1F today, Review of Systems 2 General: Reports: 10 or more systems reviewed and unremarkable except in HPI and below Const: Denies: fever(s), chills, body aches, change in appetite, change in weight, malaise, night sweats, diaphoresis, change in sleep pattern, daytime sleepiness or snoring Eyes: Denies: change in vision, blurry vision, photophobia, eye discomfort or eye discharge ENMT: Denies: throat pain, enlarged tonsils, hoarseness, mouth pain, oral sores, dry mouth, tinnitus, nasal congestion or post nasal drip Card: Denies: chest pain, palpitations, irregular heart rhythm, edema, swelling of feet/ankles, lightheadedness, syncope, pre-syncope, dyspnea on exertion, orthopnea, leg pain with exertion or acrocyanosis Resp: Denies: dyspnea, productive cough, non-productive cough, wheezing, stridor, pain on inspiration, change in phlegm color, hemoptysis or chest congestion GI: Denies: abdominal pain, nausea, vomiting, hematemesis, coffee ground emesis, dysphagia, heartburn, diarrhea, constipation, bloating, GI cramping, change in bowel habits, pain on defecation, hematochezia or melena : Denies: flank pain, difficulty urinating, dysuria, urinary frequency, urinary urgency, urinary hesitancy, urinary dribbling, difficulty starting urination, change in urine stream, nocturia or hematuria Musc: Denies: neck pain, back pain, extremity pain, joint pain, joint swelling, joint redness, joint stiffness or limited range of motion Neuro: Denies: headache(s), numbness in extremities, weakness in extremities, sensory changes, lack of coordination, difficulty walking, frequent falls, dizziness, vertigo, confusion, Slurred speech present, difficulty communicating thoughts or seizure-like activity Psych: Denies: anxiety, depression, mood swings, panic attacks, hopelessness or irritability Endo: Denies: polyuria, polydipsia, tired all the time, cold intolerance, excessive sweating, flushing or heat intolerance Nigel/Lymph: Denies: easy bruising or easy bleeding All/Imm: Denies: tongue swelling, facial swelling or acute wheezing Medications/Allergies Home Medications ?Medication ?Instructions ?Recorded ?Confirmed ?Last Taken ?Type albuterol sulfate 90 mcg/actuation 1 puff inhalation Q ID PRN 11/05/24 02/23/25 Unknown History aerosol inhaler Shortness Of Breath levothyroxine 125 mcg tablet 125 mcg PO DAILY 11/05/24 02/23/25 02/23/25 History (Levo-T) ferrous sulfate 325 mg (65 mg 325 mg PO DAILY 12/29/24 02/23/25 02/23/25 History iron) tablet polyethylene glycol 3350 17 17 g PO DAILY PRN Constipa tion 12/29/24 02/23/25 Unknown History gram/dose oral powder (Miralax) vit C 250 mg-vit E 90 mg-zinc 40 1 tab PO BID 12/29/24 02/23/25 02/23/25 History mg-copper 1 [id number] capsule (PreserVision AREDS-2) famotidine 20 mg tablet (Acid 20 mg PO BID 02/06/2502/23/25 History Retort Or Condenser Press Operator (famotidine)) cyclophosphamide 50 mg tablet See Rx Instructions .Rou te .COMPLEX 02/09/25 02/23/2502/21/25 History Held on 02/17/25. Instructions: Resume on 03/03/25. dexamethasone 20 mg tablet See Rx Instructions .Route .COMPLEX 02/09/25 02/23/25 02/21/25 History diphenhydramine HCl 25 mg capsule 25 mg PO TID PRN All ergic Reaction 02/09/25 02/23/25 Unknown History (Benadryl) ondansetron 4 mg disintegrating 4 mg PO Q6H PRN nausea and 02/09/25 02/23/25 Unknown Rx tablet vomiting #14 tabs sucralfate 1 gram tablet 1 g PO BID 02/09/25 02/23/25 02/08/25 History ciprofloxacin HCl 500 mg tablet 500 mg PO Q24H 14 days #14 tabs 02/17/25 02/23/25 02/23/25 Rx cyanocobalamin (vitamin B-12) 100 1,000 mcg (10 x 100 mcg) PO DAILY 02/17/25 02/23/25 02/23/25 Rx mcg tablet 10 days #0 tabs fludrocortisone 0.1 mg tablet 0.1 mg PO DAILY #30 tabs 02/17/25 02/23/25 02/23/25 Rx hydrocortisone 10 mg tablet 5 mg (1/2 x 10 mg) PO TID 30 days 02/17/25 02/23/25 02/23/25 Rx #45 tabs midodrine 5 mg tablet 5 mg PO TID PRN SBP less wisam n 110 02/17/25 02/23/25 Unknown Rx mmhg #20 tabs Allergies Allergy/AdvReac Type Severity Reaction Status Date / Time grass pollen Allergy Unknown Verified 02/20/25 11:16 house dust Allergy Unknown Verified 02/20/25 11:16 mold Allergy Unknown Verified 02/20/25 11:16 grass oil Allergy Unknown Uncoded 02/20/25 11:16 sycamore tree Allergy Unknown Uncoded 02/20/25 11:16 PFSH Acute 2 PFSH: Medical History (Updated 02/24/25 @ 18:31 by Babatunde Boykin MD) Gram-negative bacteremia Hood disease Pneumonia Chronic idiopathic constipation 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 Multiple myeloma GERD (gastroesophageal reflux disease) Anemia History of colon polyps Hx of echocardiogram 03/22/2024 Surgical History History of esophagogastroduodenoscopy (EGD) History of colonoscopy Hx laparoscopic cholecystectomy 06/07/2013 Hx of prostatectomy Social History Smoking and tobacco/nicotine status: never used tobacco/nicotine Alcohol intake: never Substance/Drug Use: never Household members: spouse Vitals/I&O/Wt Last Vital Signs Temp 101.1 F H 02/23/25 15:50 Pulse 106 H 02/23/25 16:15 Resp 120 H 02/23/25 15:50 BP 111/64 02/23/25 16:15 Pulse Ox 94 02/23/25 16:15 O2 Del Method Room Air 02/23/25 16:00 02/23/25 02/23/25 02/23/25 06:59 14:59 22:59 Intake Total 500 / 500 Balance 500 / 500 Weight last 48 hrs Weight 90.974 kg Weight 92.986 kg Physical Exam 2 Narrative: General: No acute distress, AO x3, dehydrated, chronically sick appearing, pallor present HEENT: PERRLA, pupils bilaterally equal and reactive Chest: Normal vesicular breath sounds, no added sounds, equal good air entry bilaterally CVS: S1-S2 regular, no murmurs, no tachycardia, no gallops, no rubs Abdomen: Soft, nontender, no organomegaly, bowel sounds present Neuro: No focal deficits, no facial deformity, AO x3, power 5/5 in all limbs Data 02/24/25 03:08 02/24/25 03:08 Micro: Microbiology 02/23/25 13:52 Blood Culture - Preliminary Blood SPECIMEN COLLECTED 02/23/25 13:50 Blood Culture - Preliminary Blood SPECIMEN COLLECTED Other data: Radiology Impressions Chest X-Ray 02/23/25 13:35 IMPRESSION: Bibasilar atelectasis or infiltrates. Chest CT 02/23/25 14:27 IMPRESSION: Small/moderate effusions. Compressive bibasilar atelectasis. Laboratory Results WBC 5.87 10^3/uL (3.29-11.43) 02/23/25 13:50 RBC 3.17 10^6/uL (3.85-5.65) L 02/23/25 13:50 Hgb 9.20 g/dL (11.27-16.99) L 02/23/25 13:50 Hct 29.3 % (37-53) L 02/23/25 13:50 MCV 92.4 fl (82-101) 02/23/25 13:50 MCH 29.0 pg (27-33) 02/23/25 13:50 MCHC 31.4 g/dL (30-55) 02/23/25 13:50 RDW 17.0 % (12.1-15.1) H 02/23/25 13:50 Plt Count 184 10^3/cmm (157-399) 02/23/25 13:50 MPV 9.3 fL (7.4-10.4) 02/23/25 13:50 Neut % (Auto) 82.7 % 02/23/25 13:50 Lymph % (Auto) 7.2 % 02/23/25 13:50 [place] % (Auto) 7.0 % 02/23/25 13:50 Eos % (Auto) 1.2 % 02/23/25 13:50 Baso % (Auto) 0.7 % 02/23/25 13:50 Neut # (Auto) 4.86 10^3/uL (1.8-7.7) 02/23/25 13:50 Lymph # (Auto) 0.4 10^3/uL (0.8-4.8) L 02/23/25 13:50 [place] # (Auto) 0.4 10^3/uL (0.2-0.9) 02/23/25 13:50 Eos # (Auto) 0.1 10^3/uL (0.0-0.8) 02/23/25 13:50 Baso # (Auto) 0.0 10^3/uL (0.0-0.1) 02/23/25 13:50 Nucleated RBC % (auto) 0 % 02/23/25 13:50 Nucleated RBCs # 0.0 /100WBC 02/23/25 13:50 PT 14.60 SECONDS (12.1-14.9) 02/23/25 13:50 INR 1.06 (0.8-1.2) 02/23/25 13:50 APTT 29.7 SECONDS (23.9-36.7) 02/23/25 13:50 Sodium 135 mmol/L (136-145) L 02/23/25 13:50 Potassium 3.5 mmol/L (3.5-5.1) 02/23/25 13:50 Chloride 94 mmol/L (98-107) L 02/23/25 13:50 Carbon Dioxide 27 mmol/L (22-29) 02/23/25 13:50 Anion Gap 17.5 (5-19) 02/23/25 13:50 BUN 14 mg/dL (8-23) 02/23/25 13:50 Creatinine 5.5 mg/dL (0.7-1.2) H 02/23/25 13:50 GFR Calculation Not Reportable 02/23/25 13:50 Glucose 65 mg/dL (65-115) 02/23/25 13:50 Calculated Osmolality 279 mOsm/kg (285-295) L 02/23/25 13:50 Lactic Acid 2.4 mmol/L (0.5-2.2) H 02/23/25 13:50 Lactic Acid (Sepsis) 1.8 mmol/L (0.5-2.2) 02/23/25 16:49 Calcium 7.9 mg/dL (8.5-10.5) L 02/23/25 13:50 Magnesium 1.7 mg/dL (1.7-2.3) 02/23/25 13:50 Total Bilirubin 0.3 mg/dL (0.15-1.2) 02/23/25 13:50 AST 23 U/L (0-40) 02/23/25 13:50 ALT 11 U/L (0-41) 02/23/25 13:50 Alkaline Phosphatase 96 U/L (40-130) 02/23/25 13:50 Troponin T Baseline 147 ng/L (0-15) H* 02/23/25 13:50 Troponin T 120 Minute 144.9 ng/L (0-15) H 02/23/25 15:41 Delta Troponin T -2.1 ABS# (0-10) L 02/23/25 15:41 C-Reactive Protein 187.7 mg/L (0.0-4.9) H 02/23/25 13:50 NT-Pro-B Natriuret Pep 72092 pg/mL (0-450) H 02/23/25 13:50 Total Protein 9.1 g/dL (6.6-8.7) H 02/23/25 13:50 Albumin 2.4 g/dL (3.5-5.2) L 02/23/25 13:50 Globulin 6.7 g/dL (1.3-4.6) H 02/23/25 13:50 Procalcitonin 1.28 ng/mL (0-0.5) H 02/23/25 13:50 TSH 2.17 uIU/mL (0.27-4.20) 02/23/25 13:50 Influenza A (PCR) Negative (Negative) 02/23/25 13:49 Influenza Type B (PCR) Negative (Negative) 02/23/25 13:49 RSV (PCR) Negative (Negative) 02/23/25 13:49 SARS-CoV-2 (PCR) Negative (Negative) 02/23/25 13:49 A&P Assessment and plan (1) Fever: (2) Gram-negative bacteremia: (3) Personal history of immunosupression therapy: (4) Generalized weakness: (5) Adrenal insufficiency: (6) ESRD (end stage renal disease): (7) Multiple myeloma: (8) Anemia: Plan 84-year-old male, immunocompromised by way of being on chronic steroids and having a history of multiple myeloma, on chemotherapy, recently admitted here For generalized weakness when he was found to have bacteremia which is on appropriate treatment He returns today with chief complaints of improving from his hospital discharge until this morning when he woke up with shaking fever and chills. He was brought to the hospital for further assessment. Here patient is noted to have a fever of 101.1 Fahrenheit. He denies any recent change in cough expectoration abdominal pain nausea or vomiting. Last bowel movement was 2 days ago with 1 episode of diarrhea. He has not had any bowel movement since then. He denies any abdominal symptoms at this time. CT of his chest is showing bilateral pleural effusion with compressive bibasilar atelectasis Patient does not make any urine currently therefore unable to obtain a UA so far. Site of his tunneled catheter has 2 sutures still remaining in place from several months ago, mild erythema noted around the suture site but otherwise no dejan discharge noted. Patient has not had any trouble with access recently. Blood cultures have been taken in the emergency room and are currently pending. Continue empiric antibiotic coverage with cefepime and vancomycin as started in the emergency room while undergoing infectious source evaluation Check respiratory viral panel Obtain HD catheter blood cultures Add magic mouthwash for mild mucositis further orders dependent on results of pending results PDMP PDMP Reviewed: Not Reviewed Attestations 2 Medical Necessity Statement*: Admission for more than 2 midnights for management of sepsis, fever in a patient with recent history of gram-negative bacteremia, adrenal sufficiency, end-stage renal disease on hemodialysis, multiple myeloma Diagnoses Fever R50.9 Gram-negative bacteremia R78.81 Personal history of immunosupression therapy Z92.25 Generalized weakness R53.1 Adrenal insufficiency E27.40 ESRD (end stage renal disease) N18.6 Multiple myeloma not having achieved remission C90.00 Multiple myeloma remission status: not in remission Anemia, unspecified type D64.9 Anemia type: unspecified type
[2025-02-23 17:46] LABS: Adenovirus Not Detected (NOT DETECT); Chlamydia Pneumoniae Not Detected (NOT DETECT); Coronavirus 229E,HKU1,NL63,OC4 Not Detected (NOT DETECT); Human Metapneumovirus Not Detected (NOT DETECT); Human Rhinovirus/Enterovirus Not Detected (NOT DETECT); Influenza A Not Detected (NOT DETECT); Influenza A H1 Not Detected (NOT DETECT); Influenza A H1-2009 Not Detected (NOT DETECT); Influenza A H3 Not Detected (NOT DETECT); Influenza B Not Detected (NOT DETECT); Mycoplasma Pneumoniae Not Detected (NOT DETECT); Parainfluenza Virus Type 1 Not Detected (NOT DETECT); Parainfluenza Virus Type 2 Not Detected (NOT DETECT); Parainfluenza Virus Type 3 Not Detected (NOT DETECT); Parainfluenza Virus Type 4 Not Detected (NOT DETECT); Respiratory Syncytial Virus A Not Detected (NOT DETECT); Respiratory Syncytial Virus B Not Detected (NOT DETECT); SARS-COV-2 Not Detected (NOT DETECT)
[2025-02-23] MEDS: famotidine 20 mg Tablet PO (18:03)
[2025-02-23] MEDS: sucralfate 1 gm Tablet PO (18:03)
[2025-02-23] MEDS: hydrocortisone 10 mg Tablet 5 MG PO (20:06)
[2025-02-23] MEDS: acetaminophen 325 mg Tablet 650 MG PO (20:06)
[2025-02-23] MEDS: heparin 5,000 unit/mL INJ 1 mL 5000 UNIT SUBCUT (20:06)
[2025-02-23] MEDS: midodrine 5 mg TABLET PO (23:28)
[2025-02-23] MEDS: sodium chloride 0.9% 1,000 ML 999 ML IV (23:34)
[2025-02-24] VITALS (9 sets, daily range): BP systolic 96–132; BP diastolic 54–67; PULSE 57–78; RESP 18–19; TEMP 36.8–37.3; O2SAT 93–95
--- NOTE | 2025-02-24 02:26 | P.PCN_ITS ---
Procedure/Consent Time out: Time Out Performed: Yes Procedure Narrative: A time out was performed. My hands were washed immediately prior to the procedure. I wore a surgical cap, mask with protective eyewear, full gown and sterile gloves throughout the procedure. The patient was placed in Trendelenburg position. The RIGHT chest region was prepped using chlorhexidine scrub and draped in sterile fashion using a full drape and sterile probe cover and sterile gel employed. The medial and lateral heads of the sternocleidomastoid muscle were identified as was the carotid pulse. The Internal Jugular vein was identified using the ultrasound. Anesthesia was a chieved over the vein using 4mg of Versed. Using real-time out of plane guidance, the introducer needle was inserted into the Internal Jugular vein under direct ultrasound visualization. Venous blood was withdrawn. The syringe was removed and a guidewire was advanced into the introducer needle. The guidewire was visualized in the Internal Jugular Vein by ultrasound. A small incision was made at the skin surface with a scalpel and the introducer needle was exchanged for a dilator over the guidewire. After appropriate dilation was obtained, the dilator was exchanged over the wire for a 20cm central venous catheter. The wire was removed and the catheter was sutured in place at 20 cm. A shield was placed over the catheter at the insertion site. The patient tolerated the procedure without any hemodynamic compromise. At time of procedure completion, all ports aspirated and flushed properly. Post-procedure chest x-ray showed the R. IJ tube in the deep Right atrium. The R. IJ CVC was pulled back s pending at this time. Estimated blood loss is _. Acute Procedures Central Line Placement: Right IJ: Time out performed: Yes Patient placed on monitor/pulse ox: Yes prep: mask, gown and gloves Central line prep: Chlorhexidine scrub and sterile drapes applied Local anesthesia used: other anesthetic (2mg Midazolam IVP x 2) Central line lumen inserted: triple Post procedure: sutured in place, good blood return, all ports aspirated, flushed, capped and sterile dressing applied Post procedure x-ray: tip of catheter in good position and no pneumothorax seen Patient tolerated procedure: well and no complications Epistaxis Control: Time out performed: Yes
[2025-02-24 04:02] LABS: Basophils % 1.2 %; Eosinophils # 0.1 10^3/uL (0.0-0.8); Eosinophils % 1.7 %; Hematocrit 23.2 % (37-53); Lymphocytes # 0.3 10^3/uL (0.8-4.8); Lymphocytes % 9.8 %; Mean Corpuscular HGB Conc 31.5 g/dL (30-55); Mean Corpuscular Hemoglobin 29.3 pg (27-33); Mean Corpuscular Volume 93.2 fl (82-101); Mean Platelet Volume 9.5 fL (7.4-10.4); Monocytes # 0.3 10^3/uL (0.2-0.9); Monocytes % 7.5 %; Neutrophils # 2.68 10^3/uL (1.8-7.7); Neutrophils % 77.5 %; Nucleated Red Blood Cells % 0 %; Platelet Count 147 10^3/cmm (157-399); Red Blood Count 2.49 10^6/uL (3.85-5.65); Red Cell Distribution Width 17.4 % (12.1-15.1); White Blood Count 3.46 10^3/uL (3.29-11.43)
[2025-02-24 04:21] LABS: Alanine Aminotransferase 9 U/L (0-41); Alkaline Phosphatase 67 U/L (40-130); Anion Gap 11.8 (5-19); Aspartate Amino Transferase 19 U/L (0-40); Blood Urea Nitrogen 19 mg/dL (8-23); Calcium 7.3 mg/dL (8.5-10.5); Carbon Dioxide 30 mmol/L (22-29); Chloride 98 mmol/L (98-107); Creatinine Clr Calc Pharmacy 9.8653; Glucose 76 mg/dL (65-115); Osmolality Calculated 283 mOsm/kg (285-295); Potassium 3.8 mmol/L (3.5-5.1); Sodium 136 mmol/L (136-145); Total Bilirubin 0.2 mg/dL (0.15-1.2)
[2025-02-24] MEDS: heparin 5,000 unit/mL INJ 1 mL 5000 UNIT SUBCUT ×2 (06:24→17:56)
--- NOTE | 2025-02-24 07:22 | PHA.VACGOAL ---
Vancomycin Goal - Goal Vancomycin Goal:: 15-20 mg/L Vancomycin Indication:: Pneumonia - Therapy Current therapy:: Cefepime Day of therpy:: Day []of [] . 2 Actual body weight (kg): 206 lb 4.8 oz - Data Labs: WBC 3.46 10^3/uL (3.29-11.43) 02/24/25 03:08 RBC 2.49 10^6/uL (3.85-5.65) L 02/24/25 03:08 Hgb 7.30 g/dL (11.27-16.99) L 02/24/25 03:08 Hct 23.2 % (37-53) L 02/24/25 03:08 MCV 93.2 fl (82-101) 02/24/25 03:08 MCH 29.3 pg (27-33) 02/24/25 03:08 MCHC 31.5 g/dL (30-55) 02/24/25 03:08 RDW 17.4 % (12.1-15.1) H 02/24/25 03:08 Sodium 136 mmol/L (136-145) 02/24/25 03:08 Potassium 3.8 mmol/L (3.5-5.1) 02/24/25 03:08 Chloride 98 mmol/L (98-107) 02/24/25 03:08 Carbon Dioxide 30 mmol/L (22-29) H 02/24/25 03:08 Anion Gap 11.8 (5-19) 02/24/25 03:08 BUN 19 mg/dL (8-23) 02/24/25 03:08 Creatinine 6.7 mg/dL (0.7-1.2) H* 02/24/25 03:08 GFR Calculation Not Reportable 02/24/25 03:08 Treatment plan:: new consult
--- NOTE | 2025-02-24 07:54 | XRR_ITS ---
PROCEDURE INFORMATION: Exam: XR Chest Exam date and time: 02/24/2025 8:38 AM Age: 84 years old Clinical indication: Shortness of breath; Additional info: Hypoxia TECHNIQUE: Imaging protocol: Radiologic exam of the chest. Views: 1 view. COMPARISON: CT chest con [id number] 02/23/2025 2:40 PM FINDINGS: Tubes, catheters and devices: Right-sided dialysis catheter is at cavoatrial junction. Lungs: Pulmonary vessels are within normal limits. Pleural spaces: Small bilateral pleural effusions. Heart/Mediastinum: Cardiomegaly is seen. Bones/joints: Unremarkable. XR/XR chest 1V portable [id number] IMPRESSION: 1. Cardiomegaly with small bilateral pleural effusions
[2025-02-24] MEDS: sodium chloride 0.9% 1,000 ML 75 ML IV (08:40)
[2025-02-24] MEDS: levothyroxine 125 mcg Tablet PO (08:44)
[2025-02-24] MEDS: fludrocortisone 0.1 mg Tablet PO (08:44)
[2025-02-24] MEDS: hydrocortisone 10 mg Tablet 5 MG PO ×3 (08:44→20:08)
[2025-02-24] MEDS: famotidine 20 mg Tablet PO ×2 (08:44→17:56)
[2025-02-24] MEDS: sucralfate 1 gm Tablet PO ×2 (08:44→17:56)
[2025-02-24] MEDS: pantoprazole DR 40 mg Tablet PO (08:44)
[2025-02-24] MEDS: midodrine 5 mg TABLET PO ×3 (08:44→20:07)
[2025-02-24] MEDS: ferrous sulfate EC 325 mg Tablet PO (08:44)
--- NOTE | 2025-02-24 10:04 | P.CONIM_ITS ---
Providers/Reason For Consult 2 Consulting Physician/Specialty*: Dr. aldridge, nephrology Reason for Consult*: ESRD Attending Physician: Babatunde Boykin MD Primary Care Provider: Deanna Bansal MD History of Present Illness History of Present Illness Manuel Parsons is a 84 year old male Patient is 84-year-old male with past medical history of multiple myeloma started on chemotherapy about 2 weeks ago, end-stage renal disease on hemodialysis per Tuesday, was recently admitted to the hospital and was discharged home about a week ago. He was treated for aspiration pneumonia and was also noted to be hypoglycemic during that admission. He presents to the emergency department due to generalized weakness fatigue chills. Also had a fever of 101.1. Lab data revealed hemoglobin of 9.2 creatinine was 5.5, potassium was 3.5. Last dialysis was on Tuesday. Chest x- ray showed bibasilar atelectasis chest CT bilateral effusions. Medications/Allergies Home Medications ?Medication ?Instructions ?Recorded ?Confirmed ?Last Taken ?Type albuterol sulfate 90 mcg/actuation 1 puff inhalation Q ID PRN 11/05/24 02/23/25 Unknown History aerosol inhaler Shortness Of Breath levothyroxine 125 mcg tablet 125 mcg PO DAILY 11/05/24 02/23/25 02/23/25 History (Levo-T) ferrous sulfate 325 mg (65 mg 325 mg PO DAILY 12/29/24 02/23/25 02/23/25 History iron) tablet polyethylene glycol 3350 17 17 g PO DAILY PRN Constipa tion 12/29/24 02/23/25 Unknown History gram/dose oral powder (Miralax) vit C 250 mg-vit E 90 mg-zinc 40 1 tab PO BID 12/29/24 02/23/25 02/23/25 History mg-copper 1 [id number] capsule (PreserVision AREDS-2) famotidine 20 mg tablet (Acid 20 mg PO BID 02/06/2502/23/25 History Manager Office (famotidine)) cyclophosphamide 50 mg tablet See Rx Instructions .Rou te .COMPLEX 02/09/25 02/23/25 02/21/25 History Held on 02/17/25. Instructions: Resume on 03/03/25. dexamethasone 20 mg tablet See Rx Instructions .Route .COMPLEX 02/09/25 02/23/25 02/21/25 History diphenhydramine HCl 25 mg capsule 25 mg PO TID PRN All ergic Reaction 02/09/25 02/23/25 Unknown History (Benadryl) ondansetron 4 mg disintegrating 4 mg PO Q6H PRN nausea and 02/09/25 02/23/25 Unknown Rx tablet vomiting #14 tabs sucralfate 1 gram tablet 1 g PO BID 02/09/25 02/23/25 02/08/25 History ciprofloxacin HCl 500 mg tablet 500 mg PO Q24H 14 days #14 tabs 02/17/25 02/23/25 02/23/25 Rx cyanocobalamin (vitamin B-12) 100 1,000 mcg (10 x 100 mcg) PO DAILY 02/17/25 02/23/25 02/23/25 Rx mcg tablet 10 days #0 tabs fludrocortisone 0.1 mg tablet 0.1 mg PO DAILY #30 tabs 02/17/25 02/23/25 02/23/25 Rx hydrocortisone 10 mg tablet 5 mg (1/2 x 10 mg) PO TID 30 days 02/17/25 02/23/25 02/23/25 Rx #45 tabs midodrine 5 mg tablet 5 mg PO TID PRN SBP less wisam n 110 02/17/25 02/23/25 Unknown Rx mmhg #20 tabs Allergies Allergy/AdvReac Type Severity Reaction Status Date / Time grass pollen Allergy Unknown Verified 02/20/25 11:16 house dust Allergy Unknown Verified 02/20/25 11:16 mold Allergy Unknown Verified 02/20/25 11:16 grass oil Allergy Unknown Uncoded 02/20/25 11:16 sycamore tree Allergy Unknown Uncoded 02/20/25 11:16 Current Medications Generic Name Dose Route Start Last Admin Trade Name Freq PRN Reason Stop Dose Admin Acetaminophen 650 mg 02/23/25 19:12 02/23/25 20:06 Acetaminophen 325 Mg Tablet PO 650 mg Q6H PRN Administration Mild/Mod Pain Or Temp >/= 101 Famotidine 20 mg 02/23/25 18:00 02/24/25 08:44 Famotidine 20 Mg Tablet PO 20 mg BID CHUNG Administration Ferrous Sulfate 325 mg 02/24/25 09:00 02/24/25 08:44 Ferrous Sulfate Ec 325 Mg Tablet PO 325 mg DAILY CHUNG Administration Fludrocortisone Acetate 0.1 mg 02/24/25 09:00 02/24/25 08:44 Fludrocortisone 0.1 Mg Tablet PO 0.1 mg DAILY CHUNG Administration Heparin Sodium (Porcine) 5,000 unit 02/23/25 19:15 02/24/25 06:24 Heparin 5,000 Unit/Ml Inj 1 Ml SUBCUT 5,000 unit Q12H CHUNG Administration Hydrocortisone 5 mg 02/23/25 21:00 02/24/25 08:44 Hydrocortisone 10 Mg Tablet PO 5 mg TID CHUNG Administration Sodium Chloride 1,000 mls @ 75 mls/hr 02/24/25 08:00 02/24/25 08:40 Sodium Chloride 0.9% IV 75 mls/hr .[id number] CHUNG Administration Levothyroxine Sodium 125 mcg 02/24/25 09:00 02/24/25 08:44 Levothyroxine 125 Mcg Tablet PO 125 mcg DAILY CHUNG Administration Midodrine 5 mg 02/24/25 09:00 02/24/25 08:44 Midodrine 5 Mg Tablet PO 5 mg TID CHUNG Administration Pantoprazole Sodium 40 mg 02/24/25 09:00 02/24/25 08:[address] 40 Mg Tablet PO 40 mg DAILY CHUNG Administration Sucralfate 1 gm 02/23/25 18:00 02/24/25 08:44 Sucralfate 1 Gm Tablet PO 1 gm BID CHUNG Administration PFSH Acute 2 PFSH: Medical History Chronic idiopathic constipation 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 Multiple myeloma GERD (gastroesophageal reflux disease) Anemia History of colon polyps Hx of echocardiogram 03/22/2024 Surgical History History of esophagogastroduodenoscopy (EGD) History of colonoscopy Hx laparoscopic cholecystectomy 06/07/2013 Hx of prostatectomy Social History Smoking and tobacco/nicotine status: never used tobacco/nicotine Alcohol intake: never Substance/Drug Use: never Household members: spouse Vitals/I&O/Wt Last Vital Signs Temp 98.2 F 02/24/25 08:00 Pulse 69 02/24/25 08:00 Resp 19 H 02/24/25 08:00 BP 107/65 02/24/25 08:00 Pulse Ox 95 02/24/25 08:00 O2 Del Method Nasal Cannula 02/24/25 08:00 02/23/25 02/24/25 02/24/25 22:59 06:59 14:59 Intake Total 750 / 750 1000 / 1750 120 / 120 Balance 750 / 750 1000 / 1750 120 / 120 Weight last 48 hrs Weight 93.576 kg Weight 90.974 kg Weight 92.986 kg Data 02/24/25 03:08 02/24/25 03:08 Micro: Microbiology 02/23/25 19:28 Blood Culture - Preliminary Blood SPECIMEN COLLECTED 02/23/25 13:52 Blood Culture - Preliminary Blood SPECIMEN COLLECTED 02/23/25 13:50 Blood Culture - Preliminary Blood SPECIMEN COLLECTED A&P Assessment and plan (1) ESRD (end stage renal disease): Plan 1. End-stage renal disease: On MWF schedule, last dialysis was on Tuesday, no acute indication for HD today and we will plan on hemodialysis tomorrow 2. Sepsis, unknown source, workup in the process, on broad-spectrum antibiotics, patient immunocompromise due to recent chemotherapy, has HD catheter, cultures obtained 3. Known history of adrenal insufficiency, takes hydrocortisone and fludrocortisone 4. Hypotension, chronic, on midodrine 5. Anemia: Will order DAMON Patient evaluated using audiovisual cart. Time spent 40 minutes. PDMP PDMP Reviewed: Not Reviewed Consult Attestations 2 Medical Necessity Statement: Per medicine team Coding Level of Care Code Acute Code for Chg Fwd Diagnoses ESRD (end stage renal disease) N18.6
[2025-02-24 16:27] LABS: Vancomycin Random 20.1 ug/mL (20.0-40.0)
--- NOTE | 2025-02-24 18:32 | P.PN_ITS ---
Subjective 2 Subjective: Overnight patient had episode of hypotension for which she received 1 L IV fluid bolus. Blood pressure is more stable now. Patient states he is feeling stable. Denies any nausea, vomiting, headache. Has remained afebrile. Vitals/I&O/Wt Last Vital Signs Temp 99.1 F 02/24/25 16:00 Pulse 67 02/24/25 16:00 Resp 19 H 02/24/25 16:00 BP 132/64 02/24/25 16:00 Pulse Ox 94 02/24/25 16:00 O2 Del Method Room Air 02/24/25 16:00 02/24/25 02/24/25 02/24/25 06:59 14:59 22:59 Intake Total 1000 / 1750 480 / 480 240 / 720 Balance 1000 / 1750 480 / 480 240 / 720 Weight last 48 hrs Weight 93.576 kg Weight 90.974 kg Weight 92.986 kg Physical Exam 2 Narrative: General: No acute distress, AO x3, dehydrated, chronically sick appearing, pallor present HEENT: PERRLA, pupils bilaterally equal and reactive Chest: Normal vesicular breath sounds, no added sounds, equal good air entry bilaterally CVS: S1-S2 regular, no murmurs, no tachycardia, no gallops, no rubs Abdomen: Soft, nontender, no organomegaly, bowel sounds present Neuro: No focal deficits, no facial deformity, AO x3, power 5/5 in all limbs Data 02/24/25 03:08 02/24/25 03:08 Micro: Microbiology 02/23/25 13:52 Blood Culture - Preliminary Blood NEGATIVE TO DATE 02/23/25 13:50 Blood Culture - Preliminary Blood NEGATIVE TO DATE 02/23/25 19:28 Blood Culture - Preliminary Blood SPECIMEN COLLECTED A&P Assessment and plan (1) Fever: (2) Gram-negative bacteremia: (3) Personal history of immunosupression therapy: (4) Generalized weakness: (5) Adrenal insufficiency: (6) ESRD (end stage renal disease): (7) Multiple myeloma: (8) Anemia: Plan 84-year-old male, immunocompromised by way of being on chronic steroids and having a history of multiple myeloma, on chemotherapy, recently admitted here for generalized weakness when he was found to have bacteremia which is on appropriate treatment he returns with chief complaints of improving from his hospital discharge until this morning when he woke up with shaking fever and chills. Fever Denies any cough, expectoration, abdominal pain, diarrhea. Follow-up blood cultures. Recent history of gram-negative bacteremia. On ciprofloxacin as an outpatient. Hold off on ciprofloxacin for now. No leukocytosis. Appreciate CT imaging, lower limb duplex. Unable to get UA as he does not make any urine in setting of end-stage renal disease. Continue with empiric IV vancomycin and cefepime. Respiratory viral panel negative. Hypotension: Most likely a combination of dehydration, possible sepsis in setting of febrile episode and gram-negative recent bacteremia along with adrenal insufficiency. Continue with NS at 75 cc/h. Watch for fluid overload. Goal blood pressure less than 140/90 mmHg with mean over 65. Continue with midodrine 5 mg 3 times daily. Changed to scheduled from as needed. Continue with hydrocortisone 5 mg 3 times daily, fludrocortisone. End-stage renal disease: Nephrology consulted. Hemodialysis as per session. Monitor electrolytes. Full code Renal dialysis diet Heparin 5000 every 12 hourly for DVT prophylaxis Protonix for PUD prophylaxis. PDMP PDMP Reviewed: Not Reviewed Attestations 2 Medical Necessity Statement*: Requested hospitalization for further evaluation and management of febrile episode in a patient on chemotherapy for multiple myeloma, end-stage renal disease, recent adrenal insufficiency, recent gram-negative bacteremia Diagnoses Fever R50.9 Gram-negative bacteremia R78.81 Personal history of immunosupression therapy Z92.25 Generalized weakness R53.1 Adrenal insufficiency E27.40 ESRD (end stage renal disease) N18.6 Multiple myeloma not having achieved remission C90.00 Multiple myeloma remission status: not in remission Anemia, unspecified type D64.9 Anemia type: unspecified type
--- NOTE | 2025-02-24 19:12 | USR_ITS ---
PROCEDURE INFORMATION: Exam: US Duplex Lower Extremity Veins, Bilateral Exam date and time: 02/24/2025 9:29 AM Age: 84 years old Clinical indication: Screening exam; Assess for dvt TECHNIQUE: Imaging protocol: Real-time duplex ultrasound of the bilateral extremities with 2-D howe scale, color Doppler flow and spectral waveform analysis including responses to compression and other maneuvers (when performed) with image documentation. Complete exam focused on the lower extremity veins. COMPARISON: US renal BI* [id number] 12/28/2024 8:36 AM FINDINGS: Right deep veins: Unremarkable. The common femoral, femoral, proximal profunda femoral and popliteal veins are patent without thrombus. Normal Doppler waveforms. Normal compressibility and/or augmentation response. Posterior tibial and peroneal veins are patent. Normal compressibility. Left deep veins: Unremarkable. The common femoral, femoral, proximal profunda femoral and popliteal veins are patent without thrombus. Normal Doppler waveforms. Normal compressibility and/or augmentation response. Posterior tibial and peroneal veins are patent. Normal compressibility. Superficial veins: Greater saphenous veins at the saphenofemoral junctions are patent bilaterally without thrombus. Soft tissues: Unremarkable. US/[place] [id number] IMPRESSION: No evidence of deep vein thrombosis.
--- NOTE | 2025-02-24 21:29 | PC.NURSE ---
patient in bed with eyes closed, this nurse in room to do assessment and pass 2100 meds. patient iv matientce fluids are needing changed and patient refuses to let nurse hang another bag fluids, patient states thats not a med and i dont need it . nurse marked fluids as patient refused. will notify hospitalist pond tender
[2025-02-25] VITALS (9 sets, daily range): BP systolic 117–155; BP diastolic 61–81; PULSE 51–100; RESP 16–18; TEMP 36.5–37.1; O2SAT 93–95
[2025-02-25] MEDS: heparin 5,000 unit/mL INJ 1 mL 5000 UNIT SUBCUT ×2 (05:38→18:28)
[2025-02-25] MEDS: cefepime 1,000 mg SDV 1000 MG IVP ×2 (05:38→16:19)
--- NOTE | 2025-02-25 08:31 | PC.SOCIAL ---
IMM Update Pg. 2 of IMM updated. Copy provided at bedside.
--- NOTE | 2025-02-25 10:02 | P.PN_ITS ---
Subjective 2 Subjective: No acute events overnight. Patient has remained hemodynamically stable and afebrile. Today morning sitting up in chair. States feeling better. Vitals/I&O/Wt Last Vital Signs Temp 98.0 F 02/25/25 08:00 Pulse 54 L 02/25/25 08:00 Resp 16 02/25/25 08:00 BP 125/65 02/25/25 08:00 Pulse Ox 94 02/25/25 08:00 O2 Del Method Room Air 02/25/25 04:00 02/24/25 02/25/25 02/25/25 22:59 06:59 14:59 Intake Total 1300 / 1780 60 / 1840 Balance 1300 / 1780 60 / 1840 Weight last 48 hrs Weight 96.615 kg Weight 93.576 kg Weight 90.974 kg Weight 92.986 kg Physical Exam 2 Narrative: General: No acute distress, AO x3, dehydrated, chronically sick appearing, pallor present HEENT: PERRLA, pupils bilaterally equal and reactive Chest: Normal vesicular breath sounds, no added sounds, equal good air entry bilaterally CVS: S1-S2 regular, no murmurs, no tachycardia, no gallops, no rubs Abdomen: Soft, nontender, no organomegaly, bowel sounds present Neuro: No focal deficits, no facial deformity, AO x3, power 5/5 in all limbs Data 02/24/25 03:08 02/24/25 03:08 Micro: Microbiology 02/23/25 19:28 Blood Culture - Preliminary Blood NEGATIVE TO DATE 02/23/25 13:52 Blood Culture - Preliminary Blood NEGATIVE TO DATE 02/23/25 13:50 Blood Culture - Preliminary Blood NEGATIVE TO DATE A&P Assessment and plan (1) Fever: (2) Gram-negative bacteremia: (3) Personal history of immunosupression therapy: (4) Generalized weakness: (5) Adrenal insufficiency: (6) ESRD (end stage renal disease): (7) Multiple myeloma: (8) Anemia: Plan 84-year-old male, immunocompromised by way of being on chronic steroids and having a history of multiple myeloma, on chemotherapy, recently admitted here for generalized weakness when he was found to have bacteremia which is on appropriate treatment he returns with chief complaints of improving from his hospital discharge until this morning when he woke up with shaking fever and chills. Fever: Afebrile for last 36 hours. Denies any cough, expectoration, abdominal pain, diarrhea. Follow-up blood cultures. So far have remained negative. Including the blood culture from dialysis catheter. Recent history of gram-negative bacteremia. On ciprofloxacin as an outpatient. Hold off on ciprofloxacin for now. No leukocytosis. Respiratory viral panel negative. Appreciate CT imaging, lower limb duplex. Unable to get UA as he does not make any urine in setting of end-stage renal disease. Continue with empiric IV vancomycin and cefepime. Hypotension: Most likely a combination of dehydration, possible sepsis in setting of febrile episode and gram-negative recent bacteremia along with adrenal insufficiency. Improving. Continue with NS at 75 cc/h. Watch for fluid overload. Goal blood pressure less than 140/90 mmHg with mean over 65. Continue with midodrine 5 mg 3 times daily. Changed to scheduled from as needed. Continue with hydrocortisone 5 mg 3 times daily, fludrocortisone. End-stage renal disease: Nephrology consulted. Hemodialysis as per session. Monitor electrolytes. Fatigue/weakness/tiredness: Multifactorial. Patient chronically sick with end- stage renal disease and multiple myeloma. Chronic anemia. Stable. Adrenal insufficiency. Blood pressure stable. Could be in setting of dehydration. IV fluid as above. Patient does have bradycardia though mostly over low 50s. Full code Renal dialysis diet Heparin 5000 every 12 hourly for DVT prophylaxis Protonix for PUD prophylaxis. PDMP PDMP Reviewed: Not Reviewed Attestations 2 Medical Necessity Statement*: Requires further hospitalization for further evaluation and management of fever in a patient with recent history of gram-negative bacteremia, end-stage renal disease on hemodialysis, multiple myeloma Diagnoses Fever R50.9 Gram-negative bacteremia R78.81 Personal history of immunosupression therapy Z92.25 Generalized weakness R53.1 Adrenal insufficiency E27.40 ESRD (end stage renal disease) N18.6 Multiple myeloma not having achieved remission C90.00 Multiple myeloma remission status: not in remission Anemia, unspecified type D64.9 Anemia type: unspecified type
[2025-02-25] MEDS: ferrous sulfate EC 325 mg Tablet PO (10:09)
[2025-02-25] MEDS: hydrocortisone 10 mg Tablet 5 MG PO ×3 (10:10→22:19)
[2025-02-25] MEDS: sucralfate 1 gm Tablet PO ×2 (10:10→18:28)
[2025-02-25] MEDS: midodrine 5 mg TABLET PO ×3 (10:10→22:20)
[2025-02-25] MEDS: levothyroxine 125 mcg Tablet PO (10:10)
[2025-02-25] MEDS: famotidine 20 mg Tablet PO (10:10)
[2025-02-25] MEDS: pantoprazole DR 40 mg Tablet PO (10:10)
[2025-02-25] MEDS: fludrocortisone 0.1 mg Tablet PO (10:10)
[2025-02-25 10:13] LABS: Basophils % 0.6 %; Eosinophils # 0.3 10^3/uL (0.0-0.8); Eosinophils % 8.4 %; Hematocrit 24.5 % (37-53); Lymphocytes # 0.7 10^3/uL (0.8-4.8); Lymphocytes % 19.3 %; Mean Corpuscular HGB Conc 31.4 g/dL (30-55); Mean Corpuscular Hemoglobin 29.1 pg (27-33); Mean Corpuscular Volume 92.5 fl (82-101); Mean Platelet Volume 9.3 fL (7.4-10.4); Monocytes # 0.3 10^3/uL (0.2-0.9); Monocytes % 7.6 %; Neutrophils # 2.19 10^3/uL (1.8-7.7); Neutrophils % 61.3 %; Nucleated Red Blood Cells % 0 %; Platelet Count 129 10^3/cmm (157-399); Red Blood Count 2.65 10^6/uL (3.85-5.65); Red Cell Distribution Width 17.2 % (12.1-15.1); White Blood Count 3.57 10^3/uL (3.29-11.43)
[2025-02-25 10:40] LABS: Alanine Aminotransferase 10 U/L (0-41); Albumin Level 2.2 g/dL (3.5-5.2); Alkaline Phosphatase 69 U/L (40-130); Anion Gap 16.9 (5-19); Aspartate Amino Transferase 22 U/L (0-40); Blood Urea Nitrogen 31 mg/dL (8-23); Calcium 7.5 mg/dL (8.5-10.5); Carbon Dioxide 25 mmol/L (22-29); Chloride 98 mmol/L (98-107); Creatinine Clr Calc Pharmacy 7.7918; Glucose 78 mg/dL (65-115); Osmolality Calculated 287 mOsm/kg (285-295); Potassium 3.9 mmol/L (3.5-5.1); Sodium 136 mmol/L (136-145); Total Bilirubin 0.2 mg/dL (0.15-1.2); Total Protein 7.2 g/dL (6.6-8.7)
[2025-02-25 10:43] LABS: Vancomycin Random 20.5 ug/mL (20.0-40.0)
--- NOTE | 2025-02-25 11:46 | P.PN_ITS ---
Subjective 2 Subjective: no new c/o Medications: Reviewed: Yes Vitals/I&O/Wt Last Vital Signs Temp 97.7 F 02/25/25 11:06 Pulse 62 02/25/25 11:06 Resp 17 02/25/25 11:06 BP 155/81 02/25/25 11:06 Pulse Ox 95 02/25/25 11:06 O2 Del Method Room Air 02/25/25 11:06 02/24/25 02/25/25 02/25/25 22:59 06:59 14:59 Intake Total 1300 / 1780 60 / 1840 Balance 1300 / 1780 60 / 1840 Weight last 48 hrs Weight 96.615 kg Weight 93.576 kg Weight 90.974 kg Weight 92.986 kg Physical Exam 2 Narrative: Elderly man in bed, awake, alert, no apparent respiratory distress. Vital signs noted saturating 96 percent on room air. HEENT normocephalic atraumatic. Neck is supple Lungs good air movement bilaterally Heart regular positive S1-S2 Abdomen positive bowel sounds. Extremities no leg edema. Neuro- awake and alert and follows commands Anterior chest wall permacath. Data 02/25/25 09:55 02/25/25 09:55 Micro: Microbiology 02/23/25 19:28 Blood Culture - Preliminary Blood NEGATIVE TO DATE 02/23/25 13:52 Blood Culture - Preliminary Blood NEGATIVE TO DATE 02/23/25 13:50 Blood Culture - Preliminary Blood NEGATIVE TO DATE A&P Assessment and plan (1) ESRD (end stage renal disease): Plan 1. End-stage renal disease: On MWF schedule, last dialysis was on Tuesday, 2. Sepsis, unknown source, workup in the process, on broad-spectrum antibiotics, patient immunocompromise due to recent chemotherapy, has HD catheter, cultures obtained 3. Known history of adrenal insufficiency, takes hydrocortisone and fludrocortisone 4. Hypotension, chronic, on midodrine 5. Anemia: Will order DAMON Patient evaluated using audiovisual cart. Time spent 40 minutes. PDMP PDMP Reviewed: Not Reviewed Attestations 2 Medical Necessity Statement*: per dorian Coding Level of Care Code Acute Code for Chg Fwd Diagnoses ESRD (end stage renal disease) N18.6
[2025-02-25] MEDS: heparin, porcine 1,000 unit/mL INJ 10 mL 1000 UNIT IV (12:45)
[2025-02-25] MEDS: heparin, porcine 1,000 unit/mL INJ 10 mL 10000 UNIT INTRACATH (15:00)
[2025-02-25] MEDS: vancomycin 500 MG in sodium chloride 0.9% (plus) 100 ML 200 MG IV (22:19)
[2025-02-26] VITALS (9 sets, daily range): BP systolic 122–146; BP diastolic 61–82; PULSE 50–83; RESP 16–17; TEMP 36.5–36.7; O2SAT 95–99
[2025-02-26] MEDS: heparin 5,000 unit/mL INJ 1 mL 5000 UNIT SUBCUT ×2 (05:53→18:29)
[2025-02-26 06:19] LABS: Basophils % 0.6 %; Eosinophils # 0.2 10^3/uL (0.0-0.8); Eosinophils % 5.6 %; Hematocrit 24.4 % (37-53); Lymphocytes # 0.8 10^3/uL (0.8-4.8); Lymphocytes % 23.4 %; Mean Corpuscular HGB Conc 30.3 g/dL (30-55); Mean Corpuscular Hemoglobin 29.1 pg (27-33); Mean Corpuscular Volume 96.1 fl (82-101); Mean Platelet Volume 9.7 fL (7.4-10.4); Monocytes # 0.2 10^3/uL (0.2-0.9); Monocytes % 6.8 %; Neutrophils # 2.11 10^3/uL (1.8-7.7); Neutrophils % 62.7 %; Nucleated Red Blood Cells % 0 %; Platelet Count 118 10^3/cmm (157-399); Red Blood Count 2.54 10^6/uL (3.85-5.65); Red Cell Distribution Width 17.2 % (12.1-15.1); White Blood Count 3.37 10^3/uL (3.29-11.43)
[2025-02-26 06:43] LABS: Alanine Aminotransferase 9 U/L (0-41); Alkaline Phosphatase 66 U/L (40-130); Anion Gap 12.4 (5-19); Aspartate Amino Transferase 21 U/L (0-40); Blood Urea Nitrogen 22 mg/dL (8-23); Calcium 7.5 mg/dL (8.5-10.5); Carbon Dioxide 27 mmol/L (22-29); Chloride 101 mmol/L (98-107); Creatinine Clr Calc Pharmacy 10.2946; Globulin 5.4 g/dL (1.3-4.6); Glucose 76 mg/dL (65-115); Osmolality Calculated 284 mOsm/kg (285-295); Potassium 4.4 mmol/L (3.5-5.1); Sodium 136 mmol/L (136-145); Total Bilirubin 0.2 mg/dL (0.15-1.2); Total Protein 7.4 g/dL (6.6-8.7)
[2025-02-26] MEDS: pantoprazole DR 40 mg Tablet PO (08:35)
[2025-02-26] MEDS: hydrocortisone 10 mg Tablet 5 MG PO ×3 (08:35→20:21)
[2025-02-26] MEDS: sucralfate 1 gm Tablet PO ×2 (08:35→17:35)
[2025-02-26] MEDS: ferrous sulfate EC 325 mg Tablet PO (08:35)
[2025-02-26] MEDS: fludrocortisone 0.1 mg Tablet PO (08:35)
[2025-02-26] MEDS: levothyroxine 125 mcg Tablet PO (08:35)
--- NOTE | 2025-02-26 08:45 | CT_ITS ---
WS: [id number] CT HEAD WITH AND WITHOUT CONTRAST HISTORY: Confusion, altered mental status. History of melanoma. TECHNIQUE: Noncontrast 3.0 mm axial images obtained from the vertex to the skull base. Additional imaging performed at 2.5 mm axial images status post IV contrast. Bone and soft tissue windows are reviewed. All CT scans at [facility] use at least one of these dose optimization techniques: automated exposure control; mA and/or kV adjustment per patient size (includes targeted exams where dose is matched to clinical indication); or iterative reconstruction. CONTRAST: Omnipaque 350; 100 mL IV. DLP: 2419.23 mGy.cm COMPARISON: CT head 02/11/2025 No acute intracranial hemorrhage, edema or midline shift. Moderate to severe symmetric volume loss and cerebral/cerebellar atrophy. Moderate small vessel ischemic changes. No infarct. No enhancing mass or vascular malformations identified. Dural venous sinuses are normally enhancing. Dominant LEFT vertebral artery. Atherosclerotic plaque in the intracranial carotid arteries. Cavernous sinuses appear appropriate. Limited evaluation of the pituitary gland. Paranasal sinuses as visualized: Clear. Mastoid air cells: Small amount of fluid in the RIGHT mastoid air cells. There is cerumen in the RIGHT external auditory canal. Calvarium and scalp: Scattered lucencies throughout the calvarium are probably related to multiple myeloma or bone metastasis. These lucencies have been present on prior exams. Lucencies extend to involve the skull base. CT/CT head wo/w con [id number] IMPRESSION: 1. Moderate to severe symmetric cerebral and cerebellar volume loss. 2. No acute intracranial hemorrhage. 3. No enhancing intracranial mass. 4. Multiple well-circumscribed lucencies throughout the skull and skull base. Suspect metastatic disease or multiple myeloma.
[2025-02-26] MEDS: iohexol 350 mg/mL 500 mL Btl (per mL) IV (09:24)
--- NOTE | 2025-02-26 10:40 | P.PN_ITS ---
Subjective 2 Subjective: No acute events overnight. Today morning examination patient seems slightly confused and was having symptoms concerning for possible visual hallucinations. He states he could see some rats upon the wall. States he thinks as if he is being drugged and he is at the back of a truck store. When later seen with his family at bedside patient was still having paranoia and was difficult to be directable. He was alert times AO x 3. Vitals/I&O/Wt Last Vital Signs Temp 98.0 F 02/26/25 07:54 Pulse 55 L 02/26/25 07:54 Resp 17 02/26/25 07:54 BP 146/61 02/26/25 07:54 Pulse Ox 98 02/26/25 07:54 O2 Del Method Room Air 02/26/25 07:54 02/25/25 02/26/25 02/26/25 22:59 06:59 14:59 Intake Total 1025 / 1505 145 / 1650 360 / 360 Output Total 3500 / 3500 Balance -2474 / -1994 145 / -1850 360 / 360 Weight last 48 hrs Weight 93.894 kg Weight 96.3 kg Weight 96.615 kg Physical Exam 2 Narrative: General: No acute distress, AO x3, dehydrated, chronically sick appearing, pallor present. confused, paranoid HEENT: PERRLA, pupils bilaterally equal and reactive Chest: Normal vesicular breath sounds, no added sounds, equal good air entry bilaterally CVS: S1-S2 regular, no murmurs, no tachycardia, no gallops, no rubs Abdomen: Soft, nontender, no organomegaly, bowel sounds present Neuro: No focal deficits, no facial deformity, AO x3, power 5/5 in all limbs Data 02/26/25 05:56 02/26/25 05:56 A&P Assessment and plan (1) Fever: (2) Gram-negative bacteremia: (3) Personal history of immunosupression therapy: (4) Generalized weakness: (5) Adrenal insufficiency: (6) ESRD (end stage renal disease): (7) Multiple myeloma: (8) Anemia: (9) Confusion: Plan 84-year-old male, immunocompromised by way of being on chronic steroids and having a history of multiple myeloma, on chemotherapy, recently admitted here for generalized weakness when he was found to have bacteremia which is on appropriate treatment he returns with chief complaints of improving from his hospital discharge until this morning when he woke up with shaking fever and chills. Confusion: Unknown etiology. Patient has paranoia and some concerns of visual hallucinations otherwise is AO x 3. Thanks as a various things in the room are moving and are distorting. Could be in setting of owning or as he does not have this glasses on show not able to see properly. Electrolytes within normal limits. On review of medications he has not missed any of his home medications. Has not received any medications overnight. LFTs within normal limits. Hemodynamically stable. Has remained afebrile. CT head and CTA head and neck negative for acute ischemia but consistent with chronic ischemic changes and lytic changes in the skull. If continues to remain confused after a restful night we will plan for MRI to rule out mets. Haldol 1 mg every 4 hours as needed. Trazodone 75 mg nightly. Fever: Afebrile for last 60 hours. Denies any cough, expectoration, abdominal pain, diarrhea. Follow-up blood cultures. So far have remained negative. Including the blood culture from dialysis catheter. Recent history of gram-negative bacteremia. On ciprofloxacin as an outpatient. Hold off on ciprofloxacin for now. No leukocytosis. Respiratory viral panel negative. Appreciate CT imaging, lower limb duplex. Unable to get UA as he does not make any urine in setting of end-stage renal disease. Continue with empiric IV vancomycin and cefepime to finish a 5-day course. Hypotension: Most likely a combination of dehydration, possible sepsis in setting of febrile episode and gram-negative recent bacteremia along with adrenal insufficiency. Improving. Continue with NS at 75 cc/h. Watch for fluid overload. Goal blood pressure less than 140/90 mmHg with mean over 65. Continue with midodrine 5 mg 3 times daily. Midodrine to be held for systolic of more than 110 mmHg. Continue with hydrocortisone 5 mg 3 times daily, fludrocortisone. End-stage renal disease: Nephrology consulted. Hemodialysis as per session. Monitor electrolytes. Fatigue/weakness/tiredness: Multifactorial. Patient chronically sick with end- stage renal disease and multiple myeloma. Chronic anemia. Stable. Adrenal insufficiency. Blood pressure stable. Could be in setting of dehydration. IV fluid as above. Patient does have bradycardia though mostly over low 50s. Full code Renal dialysis diet Heparin 5000 every 12 hourly for DVT prophylaxis Protonix for PUD prophylaxis. PDMP PDMP Reviewed: Not Reviewed Attestations 2 Medical Necessity Statement*: Requires further hospitalization for management of confusion with paranoia in a patient admitted for fever, hypotension due to dehydration with recent diagnosis of end-stage renal disease on hemodialysis, multiple myeloma, adrenal insufficiency. Diagnoses Fever R50.9 Gram-negative bacteremia R78.81 Personal history of immunosupression therapy Z92.25 Generalized weakness R53.1 Adrenal insufficiency E27.40 ESRD (end stage renal disease) N18.6 Multiple myeloma not having achieved remission C90.00 Multiple myeloma remission status: not in remission Anemia, unspecified type D64.9 Anemia type: unspecified type Confusion R41.0
--- NOTE | 2025-02-26 11:58 | P.PN_ITS ---
Subjective 2 Subjective: pt confused Medications: Reviewed: Yes Vitals/I&O/Wt Last Vital Signs Temp 97.9 F 02/26/25 11:51 Pulse 57 L 02/26/25 11:51 Resp 17 02/26/25 11:51 BP 142/72 02/26/25 11:51 Pulse Ox 96 02/26/25 11:51 O2 Del Method Room Air 02/26/25 11:51 02/25/25 02/26/25 02/26/25 22:59 06:59 14:59 Intake Total 1025 / 1505 145 / 1650 360 / 360 Output Total 3500 / 3500 Balance -2475 / -1994 145 / -1850 360 / 360 Weight last 48 hrs Weight 93.894 kg Weight 96.3 kg Weight 96.615 kg Physical Exam 2 Narrative: Elderly man in bed, awake, alert, no apparent respiratory distress. Vital signs noted saturating 96 percent on room air. HEENT normocephalic atraumatic. Neck is supple Lungs good air movement bilaterally Heart regular positive S1-S2 Abdomen positive bowel sounds. Extremities no leg edema. Neuro- awake and alert and follows commands Anterior chest wall permacath. Data 02/27/25 05:25 02/27/25 05:25 A&P Assessment and plan (1) ESRD (end stage renal disease): Plan 1. End-stage renal disease: On MWF schedule, last dialysis was on tuesday 2. Sepsis, unknown source, workup in the process, on broad-spectrum antibiotics, patient immunocompromise due to recent chemotherapy, has HD catheter, cultures obtained 3. Known history of adrenal insufficiency, takes hydrocortisone and fludrocortisone 4. Hypotension, chronic, on midodrine 5. Anemia: Will order DAMON Patient evaluated using audiovisual cart. Time spent 40 minutes. PDMP PDMP Reviewed: Not Reviewed Attestations 2 Medical Necessity Statement*: per dorian Coding Level of Care Code Acute Code for Chg Fwd Diagnoses ESRD (end stage renal disease) N18.6
[2025-02-26] MEDS: haloperidol inj 5 mg/mL INJ 1 mL 1 MG IVP (12:01)
[2025-02-26] MEDS: cefepime 1,000 mg SDV 1000 MG IVP (16:09)
[2025-02-26] MEDS: trazodone 150 mg Tablet 75 MG PO (20:21)
[2025-02-26] MEDS: midodrine 5 mg TABLET PO (20:22)
[2025-02-27] VITALS (10 sets, daily range): BP systolic 146–181; BP diastolic 70–88; PULSE 51–69; RESP 16–20; TEMP 36.4–36.8; O2SAT 92–98
[2025-02-27 05:52] LABS: Basophils % 0.3 %; Eosinophils # 0.2 10^3/uL (0.0-0.8); Eosinophils % 4.8 %; Hematocrit 23.5 % (37-53); Lymphocytes # 0.8 10^3/uL (0.8-4.8); Lymphocytes % 22.4 %; Mean Corpuscular HGB Conc 30.6 g/dL (30-55); Mean Corpuscular Hemoglobin 28.8 pg (27-33); Mean Platelet Volume 9.4 fL (7.4-10.4); Monocytes # 0.2 10^3/uL (0.2-0.9); Monocytes % 6.4 %; Neutrophils # 2.43 10^3/uL (1.8-7.7); Neutrophils % 64.8 %; Nucleated Red Blood Cells % 0 %; Platelet Count 111 10^3/cmm (157-399); Red Cell Distribution Width 17.3 % (12.1-15.1); White Blood Count 3.75 10^3/uL (3.29-11.43)
[2025-02-27 06:13] LABS: Alanine Aminotransferase 10 U/L (0-41); Albumin Level 2.1 g/dL (3.5-5.2); Alkaline Phosphatase 68 U/L (40-130); Anion Gap 14.5 (5-19); Aspartate Amino Transferase 22 U/L (0-40); Blood Urea Nitrogen 30 mg/dL (8-23); Calcium 7.4 mg/dL (8.5-10.5); Carbon Dioxide 27 mmol/L (22-29); Chloride 101 mmol/L (98-107); Creatinine Clr Calc Pharmacy 8.2316; Globulin 5.5 g/dL (1.3-4.6); Glucose 78 mg/dL (65-115); Osmolality Calculated 291 mOsm/kg (285-295); Potassium 4.5 mmol/L (3.5-5.1); Sodium 138 mmol/L (136-145); Total Bilirubin 0.3 mg/dL (0.15-1.2); Total Protein 7.6 g/dL (6.6-8.7)
--- NOTE | 2025-02-27 08:00 | MR_ITS ---
WS: [id number] MRI HEAD WITH CONTRAST TECHNIQUE: Sagittal T1, T2 axial, T2 axial FLAIR, axial susceptibility weighted imaging, axial diffusion weighted images, and coronal T2 images were obtained. Pre and post-T1 axial and post T1 coronal images. ADC and FSPGR images. CLINICAL INFORMATION: Possible mets, history of multiple myeloma, paranoia, confus COMPARISON: CT 02/26/2025 FINDINGS: No enhancing intracranial metastatic disease. No restricted diffusion to suggest acute ischemia. Mild small vessel changes with moderate to advanced parenchymal volume loss. Tiny chronic lacunar infarct in the RIGHT cerebellum. Partial opacification of the RIGHT greater than LEFT mastoid air cells. Normal posterior nasopharynx. Lytic lesions in the frontal calvarium some demonstrate enhancement. Some of these may represent incidental venous lakes or metastatic disease or multiple myeloma difficult to entirely exclude. Largest lesion in the RIGHT frontal calvarium measuring 9 mm. No underlying dural enhancement. Heterogeneously enhancing intrasellar and suprasellar mass measuring 2.1 x 2.3 x 1.3 cm left-right mass effect on the infundibulum. Findings suspicious for macroadenoma. This abuts the optic chiasm. MR/MR head wo/w con [id number] IMPRESSION: 1. No evidence of restricted diffusion to suggest acute ischemia. 2. Mild small vessel changes. Moderate to advanced parenchymal volume loss. 3. Tiny chronic lacunar infarcts in the RIGHT cerebellum. 4. No hemosiderin on the susceptibility weighted images. 5. Enhancing small well-circumscribed lytic calvarial lesions also seen on the recent head CT. Some of these appear benign. The most prominent enhancing lesi on in the RIGHT frontal calvarium measuring 7 mm is indeterminant and metastati c disease or myeloma difficult to entirely exclude. Smaller LEFT frontal enhanc ing calvarial lesions. 6. No enhancing intraparenchymal lesions. 7. 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 Recommend correlation with clinical history. This abuts the optic chiasm and displaces the infundibulum
--- NOTE | 2025-02-27 09:23 | P.PN_ITS ---
Subjective 2 Subjective: Events noted Medications: Reviewed: Yes Vitals/I&O/Wt Last Vital Signs Temp 97.7 F 02/27/25 08:00 Pulse 57 L 02/27/25 08:00 Resp 17 02/27/25 08:00 BP 154/81 02/27/25 08:00 Pulse Ox 98 02/27/25 08:00 O2 Del Method Room Air 02/27/25 08:00 02/26/25 02/27/25 02/27/25 22:59 06:59 14:59 Intake Total 720 / 1080 240 / 1320 240 / 240 Balance 720 / 1080 240 / 1320 240 / 240 Weight last 48 hrs Weight 92.76 kg Weight 93.894 kg Weight 96.3 kg Physical Exam 2 Narrative: Elderly man in bed, awake, alert, no apparent respiratory distress. Vital signs noted saturating 96 percent on room air. HEENT normocephalic atraumatic. Neck is supple Lungs good air movement bilaterally Heart regular positive S1-S2 Abdomen positive bowel sounds. Extremities no leg edema. Anterior chest wall permacath. Data 02/27/25 05:25 02/27/25 05:25 A&P Assessment and plan (1) ESRD (end stage renal disease): Plan 1. End-stage renal disease: On MWF schedule, last dialysis was on tuesday 2. Sepsis, unknown source, workup in the process, on broad-spectrum antibiotics, patient immunocompromise due to recent chemotherapy, has HD catheter, cultures obtained 3. Known history of adrenal insufficiency, takes hydrocortisone and fludrocortisone 4. Hypotension, chronic, on midodrine 5. Anemia: Will order DAMON Patient evaluated using audiovisual cart. Time spent 40 minutes. PDMP PDMP Reviewed: Not Reviewed Attestations 2 Medical Necessity Statement*: per dorain Coding Level of Care Code Acute Code for Chg Fwd Diagnoses ESRD (end stage renal disease) N18.6
[2025-02-27] MEDS: gadobenate dimeglumine 20 mL vial 12 ML IV (12:24)
--- NOTE | 2025-02-27 12:28 | P.DS_ITS ---
Discharge Providers Date of Admission: 02/23/25 15:33 Date of Discharge: February 27, 2025 Attending Provider at Admission: Babatunde Boykin MD Attending Provider at Discharge: Babatunde Boykin MD Consults: Telemetry nephrology Primary Care Provider: Deanna Bansal MD Diagnoses at Discharge Discharge Diagnosis (1) ESRD (end stage renal disease): Status: Acute (2) Hypoglycemia: Status: Acute (3) Adrenal insufficiency: Status: Acute (4) Hyponatremia: Status: Acute (5) Hypotension: Status: Acute (6) Multiple myeloma: Status: Acute Qualifiers: Multiple myeloma remission status: not in remission Qualified Code(s): C90.00 - Multiple myeloma not having achieved remission (7) Gram-negative bacteremia: Status: Acute (8) Confusion: Status: Acute Reason for Visit Reason for Visit: weakness Brief History: Manuel Parsons is a 84 year old male with recent history of multiple myeloma started on chemotherapy with the last 2 weeks, end-stage renal disease on hemodialysis started within last 1 month , recently admitted here between 02/11- 02/17 when he had presented with generalized weakness, lethargy. Patient was admitted to the hospital further evaluation and management of generalized weakness and lethargy along with hypotension and hypoglycemia. There is a concern for pneumonia with aspiration for which she was started on broad- spectrum antibiotics. He was diagnosed with adrenal insufficiency and started on steroids. His blood culture from admission were found to be 1 out of 4 bottles positive for Staphylococcus saprophyticus and pseudo fluorescence/putida. Staphylococcus considered to be a contaminant. Repeat blood cultures from 02/13 were negative. he was discharged on Ciprofloxacin 500mg bid based on sensitivity results and recommended to take it for 14 days. Chemotherapy was held this week due to hospitalization. He returned to the hospital today due to generalized weakness fatigue and shakiness and chills cough productive of white sputum for the past several week. He was noted to be febrile to 101.1F today, Hospital Course Hospital Course Patient was admitted to the hospital further evaluation and management of high- grade fever along with hypotension in setting of recent discharge from hospitalization. He was started on broad-spectrum antibiotics. During hospitalization his cultures remain negative. Patient was continued on home session of dialysis. He did have mild hypotension on admission which was in setting of dehydration for which he was started on IV fluids. After that his blood pressures were better controlled. During hospitalization his hemoglobin remained stable though he did receive mental blood transfusion in setting of chronic anemia. Patient's hospitalization was complicated by him developing confusion, paranoia with concerns for possible visual hallucinations. CT head with and without contrast was done which was concerning for moderate to severe volume loss without any hemorrhage with concerns for multiple well-circumscribed lucencies in the skull. MRI was done for further evaluation. 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 Patient has finished a 4-day course of IV antibiotics. Has remained afebrile for last 3 days. Safe discharge planning was discussed in detail with the caesar ly given concerns for sundowning and altered mental status who wanted the patient to go back home with home health. He has been discharged on trazodone as needed along with Celexa and Aricept which are the new medications added to his home medications from before. He will continue and finish the course of oral ciprofloxacin on 03/03. Physical Exam Narrative: General: No acute distress, AO x3, dehydrated, chronically sick appearing, pallor present. confused, paranoid HEENT: PERRLA, pupils bilaterally equal and reactive Chest: Normal vesicular breath sounds, no added sounds, equal good air entry bilaterally CVS: S1-S2 regular, no murmurs, no tachycardia, no gallops, no rubs Abdomen: Soft, nontender, no organomegaly, bowel sounds present Neuro: No focal deficits, no facial deformity, AO x3, power 5/5 in all limbs Discharge Data Studies Completed and Pending Completed Studies During Hospitalization Category Date Time Status CT chest wo con [id number] Stat Cat Scan 02/23/25 14:[address] head wo/w con [id number] Routine Cat Scan 02/26/25 08:45 Completed XR chest 1V portable [id number] Routine Exams 02/24/25 07:54 Completed XR chest 1V portable [id number] Stat Exams 02/23/25 13:35 [place] [id number] Routine Ultrasound 02/24/25 19:12 Completed Pending at discharge Category Date Time Status Blood Culture Stat Lab 02/23/25 13:52 Results Blood Culture Stat Lab 02/23/25 19:28 Results Leukocyte Reduced RBC Stat Lab 02/27/25 11:11 Results Type and Screen Stat Lab 02/27/25 11:11 Results MR head wo/w con [id number] Routine MRI 02/27/25 08:00 Ordered Radiology Impressions Chest CT 02/23/25 14:27 IMPRESSION: Small/moderate effusions. Compressive bibasilar atelectasis. Chest X-Ray 02/24/25 07:54 IMPRESSION: 1. Cardiomegaly with small bilateral pleural effusions Venous Duplex 02/24/25 19:12 IMPRESSION: No evidence of deep vein thrombosis. Head CT 02/26/25 08:45 IMPRESSION: 1. Moderate to severe symmetric cerebral and cerebellar volume loss. 2. No acute intracranial hemorrhage. 3. No enhancing intracranial mass. 4. Multiple well-circumscribed lucencies throughout the skull and skull base. Suspect metastatic disease or multiple myeloma. Microbiology 02/23/25 19:28 Blood Blood Culture - Preliminary NEGATIVE TO DATE 02/23/25 13:52 Blood Blood Culture - Preliminary NEGATIVE TO DATE 02/23/25 13:50 Blood Blood Culture - Preliminary NEGATIVE TO DATE Laboratory Results WBC 3.75 10^3/uL (3.29-11.43) 02/27/25 05:25 RBC 2.50 10^6/uL (3.85-5.65) L 02/27/25 05:25 Hgb 7.20 g/dL (11.27-16.99) L 02/27/25 05:25 Hct 23.5 % (37-53) L 02/27/25 05:25 MCV 94.0 fl (82-101) 02/27/25 05:25 MCH 28.8 pg (27-33) 02/27/25 05:25 MCHC 30.6 g/dL (30-55) 02/27/25 05:25 RDW 17.3 % (12.1-15.1) H 02/27/25 05:25 Plt Count 111 10^3/cmm (157-399) L 02/27/25 05:25 MPV 9.4 fL (7.4-10.4) 02/27/25 05:25 Neut % (Auto) 64.8 % 02/27/25 05:25 Lymph % (Auto) 22.4 % 02/27/25 05:25 [place] % (Auto) 6.4 % 02/27/25 05:25 Eos % (Auto) 4.8 % 02/27/25 05:25 Baso % (Auto) 0.3 % 02/27/25 05:25 Neut # (Auto) 2.43 10^3/uL (1.8-7.7) 02/27/25 05:25 Lymph # (Auto) 0.8 10^3/uL (0.8-4.8) 02/27/25 05:25 [place] # (Auto) 0.2 10^3/uL (0.2-0.9) 02/27/25 05:25 Eos # (Auto) 0.2 10^3/uL (0.0-0.8) 02/27/25 05:25 Baso # (Auto) 0.0 10^3/uL (0.0-0.1) 02/27/25 05:25 Nucleated RBC % (auto) 0 % 02/27/25 05:25 Nucleated RBCs # 0.0 /100WBC 02/27/25 05:25 PT 14.60 SECONDS (12.1-14.9) 02/23/25 13:50 INR 1.06 (0.8-1.2) 02/23/25 13:50 APTT 29.7 SECONDS (23.9-36.7) 02/23/25 13:50 Sodium 138 mmol/L (136-145) 02/27/25 05:25 Potassium 4.5 mmol/L (3.5-5.1) 02/27/25 05:25 Chloride 101 mmol/L (98-107) 02/27/25 05:25 Carbon Dioxide 27 mmol/L (22-29) 02/27/25 05:25 Anion Gap 14.5 (5-19) 02/27/25 05:25 BUN 30 mg/dL (8-23) H 02/27/25 05:25 Creatinine 8.0 mg/dL (0.7-1.2) H* 02/27/25 05:25 GFR Calculation Not Reportable 02/27/25 05:25 Glucose 78 mg/dL (65-115) 02/27/25 05:25 Calculated Osmolality 291 mOsm/kg (285-295) 02/27/25 05:25 Lactic Acid 2.4 mmol/L (0.5-2.2) H 02/23/25 13:50 Lactic Acid (Sepsis) 1.8 mmol/L (0.5-2.2) 02/23/25 16:49 Calcium 7.4 mg/dL (8.5-10.5) L 02/27/25 05:25 Magnesium 1.7 mg/dL (1.7-2.3) 02/23/25 13:50 Total Bilirubin 0.3 mg/dL (0.15-1.2) 02/27/25 05:25 AST 22 U/L (0-40) 02/27/25 05:25 ALT 10 U/L (0-41) 02/27/25 05:25 Alkaline Phosphatase 68 U/L (40-130) 02/27/25 05:25 Troponin T Baseline 147 ng/L (0-15) H* 02/23/25 13:50 Troponin T 120 Minute 144.9 ng/L (0-15) H 02/23/25 15:41 Delta Troponin T -2.1 ABS# (0-10) L 02/23/25 15:41 Troponin T Hi Sens 6Hr 153.0 ng/L (0-15) H 02/23/25 19:11 Troponin T Hi Sens 6Hr Delta 6.0 ng/L (0-12) 02/23/25 19:11 C-Reactive Protein 187.7 mg/L (0.0-4.9) H 02/23/25 13:50 NT-Pro-B Natriuret Pep 55387 pg/mL (0-450) H 02/23/25 13:50 Total Protein 7.6 g/dL (6.6-8.7) 02/27/25 05:25 Albumin 2.1 g/dL (3.5-5.2) L 02/27/25 05:25 Globulin 5.5 g/dL (1.3-4.6) H 02/27/25 05:25 Procalcitonin 1.28 ng/mL (0-0.5) H 02/23/25 13:50 TSH 2.17 uIU/mL (0.27-4.20) 02/23/25 13:50 Random Vancomycin 20.5 ug/mL (20.0-40.0) 02/25/25 09:55 Adenovirus (PCR) Not detected (NOT DETECT) 02/23/25 13:49 C. pneumoniae DNA (PCR) Not detected (NOT DETECT) 02/23/25 13:49 Coronavirus 229E (PCR) Not detected (NOT DETECT) 02/23/25 13:49 Human Metapneumovir PCR Not detected (NOT DETECT) 02/23/25 13:49 Influenza A (H1) PCR Not detected (NOT DETECT) 02/23/25 13:49 Influenza A (PCR) Negative (Negative) 02/23/25 13:49 Influ A (H1/09) PCR Not detected (NOT DETECT) 02/23/25 13:49 Influenza A (H3) PCR Not detected (NOT DETECT) 02/23/25 13:49 Influenza Type A (PCR) Not detected (NOT DETECT) 02/23/25 13:49 Influenza Type B (PCR) Negative (Negative) 02/23/25 13:49 Influenza Type B (PCR) Not detected (NOT DETECT) 02/23/25 13:49 M. pneumoniae (PCR) Not detected (NOT DETECT) 02/23/25 13:49 Parainfluenza 1 (PCR) Not detected (NOT DETECT) 02/23/25 13:49 Parainfluenza 2 (PCR) Not detected (NOT DETECT) 02/23/25 13:49 Parainfluenza 3 (PCR) Not detected (NOT DETECT) 02/23/25 13:49 Parainfluenza 4 (PCR) Not detected (NOT DETECT) 02/23/25 13:49 RSV (PCR) Negative (Negative) 02/23/25 13:49 RSV Type A (PCR) Not detected (NOT DETECT) 02/23/25 13:49 RSV Type B (PCR) Not detected (NOT DETECT) 02/23/25 13:49 Entero/Rhino (PCR) Not detected (NOT DETECT) 02/23/25 13:49 SARS-CoV-2 (PCR) Negative (Negative) 02/23/25 13:49 SARS-CoV-2 (PCR) Not detected (NOT DETECT) 02/23/25 13:49 Blood Type A Negative 02/27/25 11:11 Rho(D) Type Rh negative 02/27/25 11:11 Antibody Screen Negative 02/27/25 11:11 Crossmatch See Detail 02/27/25 11:11 Vitals Last Vital Signs Temp 97.7 F 02/27/25 08:00 Pulse 57 L 02/27/25 08:00 Resp 17 02/27/25 08:00 BP 154/81 02/27/25 08:00 Pulse Ox 98 02/27/25 08:00 O2 Del Method Room Air 02/27/25 08:00 Discharge Plan Discharge Patient Disposition: Home Condition: Stable Prescriptions: New trazodone 50 mg tablet 50 mg PO .qhs PRN (Reason: insomnia) Qty: 14 0RF donepezil [Aricept] 10 mg tablet 10 mg PO DAILY Qty: 30 0RF Continued levothyroxine [Levo-T] 125 mcg tablet 125 mcg PO DAILY albuterol sulfate 90 mcg/actuation HFA aerosol inhaler 1 puff inhalation QID PRN (Reason: Shortness Of Breath) famotidine [Acid Mate Chief (famotidine)] 20 mg tablet 20 mg PO BID hydrocortisone 10 mg Tablet 5 mg PO TID 30 Days Qty: 45 0RF fludrocortisone 0.1 mg Tablet 0.1 mg PO DAILY Qty: 30 0RF cyanocobalamin (vitamin B-12) 100 mcg tablet 1,000 mcg PO DAILY 10 Days Qty: 0 0RF ciprofloxacin HCl 500 mg tablet 500 mg PO Q24H 14 Days Qty: 14 0RF ferrous sulfate 325 mg (65 mg iron) Tablet 325 mg PO DAILY PreserVision AREDS-2 250-90-40-1 mg Capsule 1 tab PO BID polyethylene glycol 3350 [Miralax] 17 gram/dose powder 17 g PO DAILY PRN (Reason: Constipation) sucralfate 1 gram Tablet 1 g PO BID diphenhydramine HCl [Benadryl] 25 mg Capsule 25 mg PO TID PRN (Reason: Allergic Reaction) cyclophosphamide 50 mg tablet See Rx Instructions .ROUTE .COMPLEX Rx Instructions: Take 600 mg orally during or after meal in the morning. Take weekly on days 1,8,15,22 of 28 day cycle. dexamethasone 20 mg tablet See Rx Instructions .ROUTE .COMPLEX Rx Instructions: Take 40mg orally weekly on days 1,8,15,22 of 28 days cycle. Take with food in the morning. ondansetron 4 mg tablet,disintegrating 4 mg PO Q6H PRN (Reason: nausea and vomiting) Qty: 14 0RF Changed midodrine 5 mg Tablet 5 mg PO TID Qty: 30 0RF Rx Instructions: Hold for systolic blood pressure more than 110 mmHg Discharge Orders: Discharge Order (Routine); Ordered 02/27/25 Ordered By: Babatunde Boykin Referrals: Deanna Bansla MD [Primary Care Provider, [facility]] - 03/07/25 11:30 am Discharge Diet: Usual diet Discharge Activity: Resume usual activity and Increase activity as tolerated Patient Instructions: Opioid Safety Activity Restrictions/Additional Instructions: Continue with oral ciprofloxacin to finish a course of antibiotics till 03/03. Continue with current dose of hydrocortisone and fludrocortisone. Take midodrine 5 mg 3 times a day. Hold midodrine for systolic blood pressure of more than 110 mmHg. Discharge Attestations Time Spent in Discharge Care*: greater than 30 min Specific Discharge Activities: educating and/or supporting family/caregiver, discussing with pcp/other providers, discussing with business case analyst/social workers/dc planners, documenting/other paperwork and evaluating patient/reviewing data Status at Discharge: Cognitive status at discharge: cognitively intact , Behavioral status at discharge: cooperative , Quality Metrics Clinical Quality Measures [ No reported AMI, CVA or VTE this stay] Coding Level of Care Code 55845 Total time (in minutes) for Discharge: 65 Diagnoses ESRD (end stage renal disease) N18.6 Hypoglycemia E16.2 Adrenal insufficiency E27.40 Hyponatremia E87.1 Hypotension I95.9 Multiple myeloma not having achieved remission C90.00 Multiple myeloma remission status: not in remission Gram-negative bacteremia R78.81 Confusion R41.0
[2025-02-27] MEDS: heparin, porcine 1,000 unit/mL INJ 10 mL 1000 UNIT IV (13:15)
--- NOTE | 2025-02-27 13:36 | PC.SOCIAL ---
IMM Updated Updated pt & family on IMM. No questions voiced. Provided pt a copy. Initialed, dated, & timed a copy in chart.
[2025-02-27] MEDS: heparin, porcine 1,000 unit/mL INJ 10 mL 10000 UNIT INTRACATH (15:41)
[2025-02-27] MEDS: vancomycin 500 MG in sodium chloride 0.9% (plus) 100 ML 200 MG IV (15:48)
== END 2025-02-27 17:20 | disposition home health service (06) | DRG 871 ==
LOC: ER 15:52 → MEDSURG 15:55
PROVIDERS: Admitting Provider Student in an Organized Health Care Education/Training Program; Emergency Provider Emergency Medicine; PCP Family Medicine; Visit Provider Student in an Organized Health Care Education/Training Program
DX: A41.9 Sepsis, unspecified organism (principal); J69.0 Pneumonitis due to inhalation of food and vomit; N18.6 End stage renal disease; C90.00 Multiple myeloma not having achieved remission; E27.40 Unspecified adrenocortical insufficiency; E87.1 Hypo-osmolality and hyponatremia; F05 Delirium due to known physiological condition; D84.821 Immunodeficiency due to drugs; E87.20 Acidosis, unspecified; I95.9 Hypotension, unspecified; B96.89 Other specified bacterial agents as the cause of diseases classified elsewhere; E16.2 Hypoglycemia, unspecified; E86.0 Dehydration; D63.1 Anemia in chronic kidney disease; F03.90 Unspecified dementia, unspecified severity, without behavioral disturbance, psychotic disturbance, mood disturbance, and anxiety; K59.04 Chronic idiopathic constipation; T38.0X5A Adverse effect of glucocorticoids and synthetic analogues, initial encounter; K22.5 Diverticulum of esophagus, acquired; Z99.2 Dependence on renal dialysis; Z79.60 Long term (current) use of unspecified immunomodulators and immunosuppressants
CPT/HCPCS: 36415; 36430; 36591; 70470; 70553; 71045; 71250; 80053; 80202; 83605; 83735; 83880; 84145; 84443; 84484; 85025; 85610; 85730; 86140; 86850; 86900; 86920; 87040; 87486; 87581; 87633; 87637; 90935; 93005; 93970; 96372; 96374; 99213; 99285; J0692; J1630; J1644; J3370; J7030; J7040; J7050; J8499; J9999; P9040; Q3014

== ENCOUNTER 2025-03-27 09:46 | Oncology outpatient (recurring) (ONCR) | payer MEDICARE, SELFPAY ==
[2025-03-06 12:35] LABS: Basophils % 0.8 %; Eosinophils # 0.2 10^3/uL (0.0-0.8); Eosinophils % 4.5 %; Hematocrit 30.4 % (37-53); Lymphocytes # 0.7 10^3/uL (0.8-4.8); Mean Corpuscular HGB Conc 32.6 g/dL (30-55); Mean Corpuscular Hemoglobin 29.8 pg (27-33); Mean Corpuscular Volume 91.6 fl (82-101); Mean Platelet Volume 9.4 fL (7.4-10.4); Monocytes # 0.4 10^3/uL (0.2-0.9); Monocytes % 7.6 %; Neutrophils # 3.49 10^3/uL (1.8-7.7); Neutrophils % 71.9 %; Nucleated Red Blood Cells % 0 %; Platelet Count 187 10^3/cmm (157-399); Red Blood Count 3.32 10^6/uL (3.85-5.65); White Blood Count 4.86 10^3/uL (3.29-11.43)
[2025-03-06 12:58] LABS: Albumin Level 2.8 g/dL (3.5-5.2); Alkaline Phosphatase 82 U/L (40-130); Chloride 94 mmol/L (98-107); Sodium 136 mmol/L (136-145)
[2025-03-06 13:13] LABS: Alanine Aminotransferase 16 U/L (0-41); Aspartate Amino Transferase 26 U/L (0-40); Blood Urea Nitrogen 32 mg/dL (8-23); Calcium 8.1 mg/dL (8.5-10.5); Carbon Dioxide 30 mmol/L (22-29); Globulin 6.9 g/dL (1.3-4.6); Glucose 76 mg/dL (65-115); Osmolality Calculated 288 mOsm/kg (285-295); Total Bilirubin 0.5 mg/dL (0.15-1.2); Total Protein 9.7 g/dL (6.6-8.7)
[2025-03-13 09:12] VITALS: BP 175/80; PULSE 58; RESP 17; TEMP 36.4; O2SAT 97
[2025-03-13 10:09] LABS: Reticulocyte % 1.2 % (0.5-2.0)
[2025-03-13 10:34] LABS: Alanine Aminotransferase 13 U/L (0-41); Albumin Level 2.8 g/dL (3.5-5.2); Alkaline Phosphatase 75 U/L (40-130); Anion Gap 13.8 (5-19); Aspartate Amino Transferase 25 U/L (0-40); Blood Urea Nitrogen 34 mg/dL (8-23); Calcium 8.1 mg/dL (8.5-10.5); Carbon Dioxide 29 mmol/L (22-29); Chloride 97 mmol/L (98-107); Globulin 6.9 g/dL (1.3-4.6); Glucose 68 mg/dL (65-115); Iron 105 ug/dL (59-158); Lactate Dehydrogenase 165 U/L (135-225); Osmolality Calculated 288 mOsm/kg (285-295); Potassium 3.8 mmol/L (3.5-5.1); Sodium 136 mmol/L (136-145); Total Bilirubin 0.6 mg/dL (0.15-1.2); Total Protein 9.7 g/dL (6.6-8.7)
[2025-03-13 10:44] LABS: Vitamin B12 801 pg/mL (232-1245)
[2025-03-13 10:53] LABS: Folate Level 6.1 ng/mL (4.5-32.2)
[2025-03-13 10:59] LABS: Ferritin 2472 ng/mL (30-400)
[2025-03-13 11:01] LABS: Total Iron Binding Capacity 122 mcg/dl; Unsaturated Iron Binding < 17 ug/dL (112-347)
[2025-03-13 11:19] LABS: Immunoglobulin IGA < 50 mg/dL (70-400); Immunoglobulin IGM < 25 mg/dL (40-230)
[2025-03-13 11:27] LABS: Immunoglobulin IGG 5539 mg/dL (700-1600)
[2025-03-14 07:05] LABS: PROTEIN, TOTAL 9.5 g/dL (6.1-8.1)
[2025-03-14 15:15] LABS: KAPPA LIGHT CHAIN, FREE, SERUM 70.4 mg/L (3.3-19.4); KAPPA/LAMBDA LIGHT CHAINS FREE 0.01 (0.26-1.65)
[2025-03-14 21:14] LABS: ABNORMAL PROTEIN BAND 1 4.8 g/dL (NONE DETECTED); ALBUMIN 3.1 g/dL (3.8-4.8); ALPHA 1 GLOBULIN 0.3 g/dL (0.2-0.3); ALPHA 2 GLOBULIN 0.7 g/dL (0.5-0.9); BETA 1 GLOBULIN 0.3 g/dL (0.4-0.6); BETA 2 GLOBULIN 0.2 g/dL (0.2-0.5); GAMMA GLOBULIN 4.9 g/dL (0.8-1.7)
--- NOTE | 2025-03-15 11:04 | PC.PHAR ---
brianna and i called dr. yun to confirm he wanted patient treated today. patient is here today with his daughter and . jama wants him to do velcade, cytoxan and dexamethasone today. patient states he took cytoxan at home this morning. we will do his velcade and dex here in the clinic. jama states patient will skip next week then return the following tuesday.
[2025-03-15] MEDS: dexamethasone 4 mg Tablet 40 MG PO (11:06)
[2025-03-15] MEDS: bortezomib 3.5 mg SDV 3.3 MG SUBCUT (11:17)
[2025-03-27 10:35] LABS: Basophils % 0.7 %; Eosinophils # 0.1 10^3/uL (0.0-0.8); Eosinophils % 4.6 %; Hematocrit 26.1 % (37-53); Lymphocytes % 34.1 %; Mean Corpuscular HGB Conc 31.8 g/dL (30-55); Mean Corpuscular Hemoglobin 30.2 pg (27-33); Mean Corpuscular Volume 94.9 fl (82-101); Monocytes # 0.2 10^3/uL (0.2-0.9); Monocytes % 5.6 %; Neutrophils # 1.62 10^3/uL (1.8-7.7); Nucleated Red Blood Cells % 0 %; Platelet Count 119 10^3/cmm (157-399); Red Blood Count 2.75 10^6/uL (3.85-5.65); Red Cell Distribution Width 17.8 % (12.1-15.1); White Blood Count 3.05 10^3/uL (3.29-11.43)
[2025-03-27 10:56] LABS: Alanine Aminotransferase 7 U/L (0-41); Albumin Level 2.8 g/dL (3.5-5.2); Alkaline Phosphatase 79 U/L (40-130); Anion Gap 13.8 (5-19); Aspartate Amino Transferase 14 U/L (0-40); Blood Urea Nitrogen 30 mg/dL (8-23); Calcium 8.2 mg/dL (8.5-10.5); Carbon Dioxide 30 mmol/L (22-29); Chloride 98 mmol/L (98-107); Globulin 6.8 g/dL (1.3-4.6); Glucose 92 mg/dL (65-115); Osmolality Calculated 292 mOsm/kg (285-295); Potassium 3.8 mmol/L (3.5-5.1); Sodium 138 mmol/L (136-145); Total Bilirubin 0.8 mg/dL (0.15-1.2); Total Protein 9.6 g/dL (6.6-8.7)
[2025-03-27] MEDS: dexamethasone 4 mg Tablet 40 MG PO (11:38)
[2025-03-27] MEDS: bortezomib 3.5 mg SDV 3.3 MG SUBCUT (12:13)
== END 2025-04-01 23:59 | disposition home or self-care (01) ==
PROVIDERS: Nurse Practitioner; PCP Family Medicine; Visit Provider Internal Medicine
DX: Z51.11 Encounter for antineoplastic chemotherapy; C90.00 Multiple myeloma not having achieved remission; C79.51 Secondary malignant neoplasm of bone; R03.0 Elevated blood-pressure reading, without diagnosis of hypertension; N17.9 Acute kidney failure, unspecified; Z79.52 Long term (current) use of systemic steroids; Z79.899 Other long term (current) drug therapy; D64.9 Anemia, unspecified; Z53.9 Procedure and treatment not carried out, unspecified reason
CPT/HCPCS: 36415; 80053; 82607; 82728; 82746; 82784; 83010; 83540; 83550; 83615; 83883; 84155; 84165; 85025; 85045; 86334; 96401; 96402; 99213; 99214; J8540; J9041

== ENCOUNTER 2025-03-29 13:18 | Outpatient (CLI) | payer MEDICARE, SELFPAY | END 2025-03-29 13:19 | disposition home or self-care (01) | LOC: LAB 13:21 | PROVIDERS: PCP Family Medicine; Visit Provider Nurse Practitioner Family | DX: C90.00 Multiple myeloma not having achieved remission (principal); D64.9 Anemia, unspecified; K92.1 Melena | CPT/HCPCS: 82274 ==

== ENCOUNTER 2025-05-01 10:18 | Oncology outpatient (recurring) (ONCR) | payer MEDICARE, SELFPAY ==
[2025-04-03 09:03] VITALS: BP 170/96; PULSE 78; RESP 16; TEMP 36.5; O2SAT 96
[2025-04-03 09:46] LABS: Hematocrit 24.9 % (37-53); Hemoglobin 8.10 g/dL (11.27-16.99); Mean Corpuscular HGB Conc 32.5 g/dL (30-55); Mean Corpuscular Hemoglobin 31.2 pg (27-33); Mean Corpuscular Volume 95.8 fl (82-101); Nucleated Red Blood Cells % 0 %; Platelet Count 108 10^3/cmm (157-399); Red Blood Count 2.60 10^6/uL (3.85-5.65); White Blood Count 4.08 10^3/uL (3.29-11.43)
[2025-04-03 10:02] LABS: Alanine Aminotransferase 7 U/L (0-41); Albumin Level 2.7 g/dL (3.5-5.2); Alkaline Phosphatase 69 U/L (40-130); Anion Gap 14.9 (5-19); Aspartate Amino Transferase 14 U/L (0-40); Blood Urea Nitrogen 42 mg/dL (8-23); Calcium 7.9 mg/dL (8.5-10.5); Carbon Dioxide 29 mmol/L (22-29); Chloride 99 mmol/L (98-107); Creatinine Clr Calc Pharmacy 10.7175; Globulin 5.5 g/dL (1.3-4.6); Glucose 82 mg/dL (65-115); Osmolality Calculated 298 mOsm/kg (285-295); Potassium 3.9 mmol/L (3.5-5.1); Sodium 139 mmol/L (136-145); Total Protein 8.2 g/dL (6.6-8.7)
[2025-04-03] MEDS: bortezomib 3.5 mg SDV 3.3 MG SUBCUT (11:34)
[2025-04-03 11:45] VITALS: BP 112/64; PULSE 68; RESP 17; TEMP 36.3; O2SAT 93
[2025-04-04 06:45] LABS: PROTEIN, TOTAL 8.2 g/dL (6.1-8.1)
[2025-04-04 14:45] LABS: KAPPA LIGHT CHAIN, FREE, SERUM 68.6 mg/L (3.3-19.4); KAPPA/LAMBDA LIGHT CHAINS FREE 0.01 (0.26-1.65); LAMBDA LIGHT CHAIN, FREE, SERU 5144.2 mg/L (5.7-26.3)
[2025-04-06 09:59] LABS: ALPHA 1 GLOBULIN 0.3 g/dL (0.2-0.3); ALPHA 2 GLOBULIN 0.6 g/dL (0.5-0.9); BETA 1 GLOBULIN 0.2 g/dL (0.4-0.6); BETA 2 GLOBULIN 0.2 g/dL (0.2-0.5)
[2025-04-10] MEDS: bortezomib 3.5 mg SDV 3.3 MG SUBCUT (11:50)
[2025-04-17 09:18] LABS: Hematocrit 25.9 % (37-53); Hemoglobin 8.30 g/dL (11.27-16.99); Mean Corpuscular HGB Conc 32.0 g/dL (30-55); Mean Corpuscular Hemoglobin 31.6 pg (27-33); Mean Corpuscular Volume 98.5 fl (82-101); Nucleated Red Blood Cells % 0 %; Platelet Count 139 10^3/cmm (157-399); Red Blood Count 2.63 10^6/uL (3.85-5.65); White Blood Count 3.92 10^3/uL (3.29-11.43)
[2025-04-17 09:36] LABS: Alanine Aminotransferase 6 U/L (0-41); Albumin Level 3.1 g/dL (3.5-5.2); Alkaline Phosphatase 75 U/L (40-130); Anion Gap 15.5 (5-19); Aspartate Amino Transferase 14 U/L (0-40); Blood Urea Nitrogen 39 mg/dL (8-23); Calcium 8.2 mg/dL (8.5-10.5); Carbon Dioxide 27 mmol/L (22-29); Chloride 98 mmol/L (98-107); Creatinine Clr Calc Pharmacy 10.1726; Globulin 5.0 g/dL (1.3-4.6); Glucose 75 mg/dL (65-115); Osmolality Calculated 290 mOsm/kg (285-295); Potassium 4.5 mmol/L (3.5-5.1); Sodium 136 mmol/L (136-145); Total Protein 8.1 g/dL (6.6-8.7)
--- NOTE | 2025-04-17 10:58 | PC.NURSE ---
Patient took prednisone at home
[2025-04-17] MEDS: bortezomib 3.5 mg SDV 3.3 MG SUBCUT (11:08)
[2025-04-18 08:35] LABS: PROTEIN, TOTAL 8.0 g/dL (6.1-8.1)
[2025-04-19 14:34] LABS: KAPPA LIGHT CHAIN, FREE, SERUM 69.8 mg/L (3.3-19.4); KAPPA/LAMBDA LIGHT CHAINS FREE 0.03 (0.26-1.65); LAMBDA LIGHT CHAIN, FREE, SERU 2579.2 mg/L (5.7-26.3)
[2025-04-19 21:25] LABS: ALPHA 1 GLOBULIN 0.3 g/dL (0.2-0.3); ALPHA 2 GLOBULIN 0.5 g/dL (0.5-0.9); BETA 1 GLOBULIN 0.3 g/dL (0.4-0.6); BETA 2 GLOBULIN 0.2 g/dL (0.2-0.5)
[2025-04-24] MEDS: bortezomib 3.5 mg SDV 3.3 MG SUBCUT (11:54)
[2025-04-24 11:59] VITALS: BP 126/78; PULSE 63; RESP 18; O2SAT 94
[2025-05-01] MEDS: bortezomib 3.5 mg SDV 3.3 MG SUBCUT (12:05)
== END 2025-05-02 23:59 | disposition home or self-care (01) ==
PROVIDERS: PCP Family Medicine; Visit Provider Internal Medicine
DX: Z53.9 Procedure and treatment not carried out, unspecified reason; Z51.11 Encounter for antineoplastic chemotherapy; C90.00 Multiple myeloma not having achieved remission; Z79.899 Other long term (current) drug therapy
CPT/HCPCS: 36415; 80053; 82784; 83883; 84155; 84165; 85025; 96401; 96402; 99213; 99214; J8540; J9041

== ENCOUNTER 2025-05-29 10:00 | Oncology outpatient (recurring) (ONCR) | payer MEDICARE, SELFPAY ==
[2025-05-08 10:37] VITALS: BP 127/72; PULSE 54; TEMP 36.3
[2025-05-08] MEDS: bortezomib 3.5 mg SDV 3.3 MG SUBCUT (11:23)
[2025-05-15 09:31] LABS: Hematocrit 28.1 % (37-53); Hemoglobin 9.30 g/dL (11.27-16.99); Mean Corpuscular HGB Conc 33.1 g/dL (30-55); Mean Corpuscular Hemoglobin 33.2 pg (27-33); Mean Corpuscular Volume 100.4 fl (82-101); Nucleated Red Blood Cells % 0 %; Platelet Count 101 10^3/cmm (157-399); Red Blood Count 2.80 10^6/uL (3.85-5.65); White Blood Count 3.05 10^3/uL (3.29-11.43)
[2025-05-15 09:55] LABS: Alanine Aminotransferase 7 U/L (0-41); Albumin Level 3.2 g/dL (3.5-5.2); Alkaline Phosphatase 72 U/L (40-130); Anion Gap 12.9 (5-19); Aspartate Amino Transferase 14 U/L (0-40); Blood Urea Nitrogen 45 mg/dL (8-23); Calcium 7.8 mg/dL (8.5-10.5); Carbon Dioxide 28 mmol/L (22-29); Chloride 99 mmol/L (98-107); Creatinine Clr Calc Pharmacy 8.9478; Globulin 3.3 g/dL (1.3-4.6); Glucose 90 mg/dL (65-115); Osmolality Calculated 291 mOsm/kg (285-295); Potassium 4.9 mmol/L (3.5-5.1); Sodium 135 mmol/L (136-145); Total Protein 6.5 g/dL (6.6-8.7)
[2025-05-15 10:18] LABS: Slide Review Slide Review Perform
[2025-05-15] MEDS: bortezomib 3.5 mg SDV 3.3 MG SUBCUT (11:12)
[2025-05-16 07:14] LABS: PROTEIN, TOTAL 6.3 g/dL (6.1-8.1)
[2025-05-16 20:14] LABS: ALPHA 1 GLOBULIN 0.3 g/dL (0.2-0.3); ALPHA 2 GLOBULIN 0.5 g/dL (0.5-0.9); BETA 1 GLOBULIN 0.2 g/dL (0.4-0.6); BETA 2 GLOBULIN 0.2 g/dL (0.2-0.5)
[2025-05-17 13:34] LABS: KAPPA LIGHT CHAIN, FREE, SERUM 41.6 mg/L (3.3-19.4); KAPPA/LAMBDA LIGHT CHAINS FREE 0.04 (0.26-1.65); LAMBDA LIGHT CHAIN, FREE, SERU 1109.3 mg/L (5.7-26.3)
[2025-05-22 10:43] VITALS: BP 146/73; PULSE 63; RESP 18; TEMP 36.6; O2SAT 98
[2025-05-22] MEDS: bortezomib 3.5 mg SDV 3.3 MG SUBCUT (11:15)
[2025-05-29] MEDS: bortezomib 3.5 mg SDV 3.3 MG SUBCUT (10:40)
== END 2025-06-02 23:59 | disposition home or self-care (01) ==
PROVIDERS: PCP Family Medicine; Visit Provider Internal Medicine
DX: Z51.11 Encounter for antineoplastic chemotherapy; C90.00 Multiple myeloma not having achieved remission; Z79.899 Other long term (current) drug therapy; Z53.9 Procedure and treatment not carried out, unspecified reason
CPT/HCPCS: 36415; 80053; 83615; 83883; 84155; 84165; 85025; 86334; 96401; 96402; 99214; J9041

== ENCOUNTER → 2025-05-30 13:55 | Outpatient (BNVA) | payer MEDICARE, SELFPAY | PROVIDERS: PCP Family Medicine; Referring Provider Internal Medicine; Visit Provider Internal Medicine | DX: R00.1 Bradycardia, unspecified (principal); D64.9 Anemia, unspecified; Z85.79 Personal history of other malignant neoplasms of lymphoid, hematopoietic and related tissues; R07.9 Chest pain, unspecified; R06.02 Shortness of breath; R00.2 Palpitations | CPT/HCPCS: 93005; 99204 ==

== ENCOUNTER 2025-06-26 09:30 | Oncology outpatient (recurring) (ONCR) | payer MEDICARE, SELFPAY ==
[2025-06-05] MEDS: bortezomib 3.5 mg SDV 3.3 MG SUBCUT (10:36)
[2025-06-05 10:55] VITALS: BP 114/68; PULSE 73; RESP 17; TEMP 36.1; O2SAT 97
[2025-06-12 09:56] LABS: Hematocrit 31.4 % (37-53); Hemoglobin 10.20 g/dL (11.27-16.99); Mean Corpuscular HGB Conc 32.5 g/dL (30-55); Mean Corpuscular Hemoglobin 32.1 pg (27-33); Mean Corpuscular Volume 98.7 fl (82-101); Nucleated Red Blood Cells % 0 %; Platelet Count 90 10^3/cmm (157-399); Red Blood Count 3.18 10^6/uL (3.85-5.65); White Blood Count 3.00 10^3/uL (3.29-11.43)
[2025-06-12 10:10] LABS: Alanine Aminotransferase 12 U/L (0-41); Albumin Level 3.2 g/dL (3.5-5.2); Alkaline Phosphatase 77 U/L (40-130); Anion Gap 18.1 (5-19); Aspartate Amino Transferase 18 U/L (0-40); Blood Urea Nitrogen 52 mg/dL (8-23); Calcium 7.8 mg/dL (8.5-10.5); Carbon Dioxide 24 mmol/L (22-29); Chloride 100 mmol/L (98-107); Creatinine Clr Calc Pharmacy 7.4100; Globulin 2.7 g/dL (1.3-4.6); Glucose 94 mg/dL (65-115); Osmolality Calculated 298 mOsm/kg (285-295); Potassium 5.1 mmol/L (3.5-5.1); Sodium 137 mmol/L (136-145); Total Protein 5.9 g/dL (6.6-8.7)
[2025-06-12] MEDS: bortezomib 3.5 mg SDV 3.3 MG SUBCUT (11:26)
[2025-06-13 07:11] LABS: PROTEIN, TOTAL 5.5 g/dL (6.1-8.1)
[2025-06-13 14:15] LABS: KAPPA LIGHT CHAIN, FREE, SERUM 33.6 mg/L (3.3-19.4); KAPPA/LAMBDA LIGHT CHAINS FREE 0.05 (0.26-1.65); LAMBDA LIGHT CHAIN, FREE, SERU 673.5 mg/L (5.7-26.3)
[2025-06-13 21:06] LABS: ALPHA 1 GLOBULIN 0.3 g/dL (0.2-0.3); ALPHA 2 GLOBULIN 0.4 g/dL (0.5-0.9); BETA 1 GLOBULIN 0.2 g/dL (0.4-0.6); BETA 2 GLOBULIN 0.2 g/dL (0.2-0.5)
[2025-06-19] MEDS: bortezomib 3.5 mg SDV 3.3 MG SUBCUT (10:26)
[2025-06-26 09:52] LABS: Hematocrit 33.3 % (37-53); Hemoglobin 10.70 g/dL (11.27-16.99); Mean Corpuscular HGB Conc 32.1 g/dL (30-55); Mean Corpuscular Hemoglobin 31.4 pg (27-33); Mean Corpuscular Volume 97.7 fl (82-101); Nucleated Red Blood Cells % 0 %; Platelet Count 91 10^3/cmm (157-399); Red Blood Count 3.41 10^6/uL (3.85-5.65); White Blood Count 2.64 10^3/uL (3.29-11.43)
[2025-06-26 10:08] LABS: Alanine Aminotransferase 8 U/L (0-41); Albumin Level 3.2 g/dL (3.5-5.2); Alkaline Phosphatase 66 U/L (40-130); Anion Gap 14.9 (5-19); Aspartate Amino Transferase 15 U/L (0-40); Blood Urea Nitrogen 48 mg/dL (8-23); Calcium 7.6 mg/dL (8.5-10.5); Carbon Dioxide 27 mmol/L (22-29); Chloride 100 mmol/L (98-107); Creatinine Clr Calc Pharmacy 8.4551; Globulin 2.5 g/dL (1.3-4.6); Glucose 93 mg/dL (65-115); Osmolality Calculated 296 mOsm/kg (285-295); Potassium 4.9 mmol/L (3.5-5.1); Sodium 137 mmol/L (136-145); Total Protein 5.7 g/dL (6.6-8.7)
== END 2025-07-02 23:59 | disposition home or self-care (01) ==
PROVIDERS: Internal Medicine; Nurse Practitioner Family; PCP Family Medicine; Visit Provider Nurse Practitioner
DX: C90.00 Multiple myeloma not having achieved remission; C79.51 Secondary malignant neoplasm of bone; D64.9 Anemia, unspecified; N17.9 Acute kidney failure, unspecified; Z85.46 Personal history of malignant neoplasm of prostate; Z79.52 Long term (current) use of systemic steroids; Z79.899 Other long term (current) drug therapy; Z53.9 Procedure and treatment not carried out, unspecified reason
CPT/HCPCS: 36415; 80053; 83883; 84155; 84165; 85025; 86334; 96401; 96402; 99213; J9041

== ENCOUNTER 2025-07-26 10:03 | Outpatient (CLI) | payer MEDICARE, SELFPAY ==
--- NOTE | 2025-07-26 10:08 | XR_ITS ---
WS: [id number] PA and lateral chest, 07/26/2025 Clinical Data: shortness of breath with exertion Comparison: Portable chest, 02/24/2025 Findings: No nodules or masses are seen. The diaphragms are flattened. There may be a small left effusion. The heart is slightly enlarged. No pneumonia or pneumothorax is seen. The aortic arch shows calcification and tortuosity. The right dialysis catheter remains in the same position. There is an old right lower rib fracture. There are cholecystectomy clips in the right upper quadrant. XR/XR chest 2V* [id number] Impression: 1. Atherosclerosis and cardiomegaly. 2. Hyperinflation. 3. Small left pleural effusion.
== END 2025-07-26 10:04 | disposition home or self-care (01) ==
LOC: RAD 10:04
PROVIDERS: PCP Family Medicine; Visit Provider Nurse Practitioner
DX: R06.02 Shortness of breath (principal); I70.0 Atherosclerosis of aorta; I51.7 Cardiomegaly; Z95.828 Presence of other vascular implants and grafts; J90 Pleural effusion, not elsewhere classified; Z90.49 Acquired absence of other specified parts of digestive tract; S22.31XS Fracture of one rib, right side, sequela; X58.XXXS Exposure to other specified factors, sequela
CPT/HCPCS: 71046

== ENCOUNTER 2025-07-31 09:43 | Oncology outpatient (recurring) (ONCR) | payer MEDICARE, SELFPAY ==
[2025-07-03 09:49] LABS: Hematocrit 31.6 % (37-53); Hemoglobin 10.20 g/dL (11.27-16.99); Mean Corpuscular HGB Conc 32.3 g/dL (30-55); Mean Corpuscular Hemoglobin 31.5 pg (27-33); Mean Corpuscular Volume 97.5 fl (82-101); Nucleated Red Blood Cells % 0 %; Platelet Count 99 10^3/cmm (157-399); Red Blood Count 3.24 10^6/uL (3.85-5.65); White Blood Count 3.41 10^3/uL (3.29-11.43)
[2025-07-03 10:08] LABS: Alanine Aminotransferase 10 U/L (0-41); Albumin Level 3.3 g/dL (3.5-5.2); Alkaline Phosphatase 63 U/L (40-130); Anion Gap 18.4 (5-19); Aspartate Amino Transferase 17 U/L (0-40); Blood Urea Nitrogen 61 mg/dL (8-23); Calcium 7.7 mg/dL (8.5-10.5); Carbon Dioxide 25 mmol/L (22-29); Chloride 100 mmol/L (98-107); Creatinine Clr Calc Pharmacy 7.6594; Globulin 2.6 g/dL (1.3-4.6); Glucose 72 mg/dL (65-115); Osmolality Calculated 302 mOsm/kg (285-295); Potassium 5.4 mmol/L (3.5-5.1); Sodium 138 mmol/L (136-145); Total Protein 5.9 g/dL (6.6-8.7)
[2025-07-03] MEDS: bortezomib 3.5 mg SDV 3.3 MG SUBCUT (11:32)
[2025-07-03 11:39] VITALS: BP 144/73; PULSE 61; RESP 17; TEMP 36.3; O2SAT 91
[2025-07-04 06:21] LABS: PROTEIN, TOTAL 5.4 g/dL (6.1-8.1)
--- NOTE | 2025-07-04 11:15 | USCV_ITS ---
Manuel Parsons Age: 84 Gender: M : 1940 Exam Date: 07/04/2025 11:50 Ordering Phys: Luis Connolly M.D ([email or web address]) Technologist: Exam Location: [facility] [place]ication: cp sob BP: 130 / 80 HR: 65 Rhythm: Sinus Technical Quality: Adequate MEASUREMENTS (Male / Female) Normal Values 2D ECHO LV Diastolic Diameter PLAX 4.3 cm 4.2 - 5.9 / 3.9 - 5.3 cm IVS Diastolic Thickness 1.5 cm 0.6 - 1.0 / 0.6 - 0.9 cm IVS Systolic Thickness 2.0 cm LVPW Diastolic Thickness 1.6 cm 0.6 - 1.0 / 0.6 - 0.9 cm LVPW Systolic Thickness 1.7 cm LVOT Diameter 2.3 cm LV Ejection Fraction 2D Teich 66.5 % LV Ejection Fraction MOD 4C 56.7 % LV Ejection Fraction MOD 2C 70.1 % LV Ejection Fraction 2C AL 71.4 % LA Diameter 4.6 cm RA Systolic Volume 4C AL 62.2 ml RA Systolic Volume 4C MOD 56.4 ml LA Sys Volume AL 81.3 cm cubed LA Sys Volume Index AL 37.0 cm cubed/m squared Aorta at Sinotubular Diameter 3.5 cm M-MODE LA Ao Ratio MM 1.4 AV Cusp Separation MM 2.2 cm DOPPLER AV Peak Velocity 245.0 cm/s LVOT Peak Velocity 140.0 cm/s AV Area Cont Eq vti 3.1 cm squared AV Area Cont Eq pk 2.4 cm squared MV Peak Velocity 156.0 cm/s MV Area PHT 3.1 cm squared Mitral E to A Ratio 1.1 TV Peak Velocity 279.0 cm/s TR Peak Velocity 390.0 cm/s TR Peak Gradient 60.8 mmHg TV Peak E Velocity 130.0 cm/s PV Peak Velocity 117.0 cm/s FINDINGS Left Ventricle Technically limited quality echocardiogram because of poor ultrasonic windows. LV systolic function is normal with EF of 60-65%. No regional wall motion abnormalities are seen. Right Ventricle Normal in size and function Right Atrium Dilated Left Atrium Dilated IA Septum Grossly normal Mitral Valve Structurally normal mitral valve. Mild to moderate mitral regurgitation. Aortic Valve Grossly normal. Mild aortic stenosis with mean gradient of 10 mmHg. Mild to moderate aortic regurgitation Tricuspid Valve Mild tricuspid regurgitation. RVSP is more than 60 mmHg. This is consistent with severe pulmonary hypertension Pulmonic Valve Not well visualized Pericardium Normal Aorta Normal in size IVC Not well visualized CONCLUSIONS LV systolic function is normal with EF of 60-65%. Biatrial dilation Mild to moderate mitral regurgitation. Mild aortic stenosis. Mild to moderate aortic regurgitation Mild tricuspid regurgitation. Severe pulmonary hypertension Luis Connolly MD (Electronically Signed) Final Date: 07 July 2025 14:13 S
[2025-07-04 15:45] LABS: KAPPA LIGHT CHAIN, FREE, SERUM 40.4 mg/L (3.3-19.4); KAPPA/LAMBDA LIGHT CHAINS FREE 0.06 (0.26-1.65); LAMBDA LIGHT CHAIN, FREE, SERU 688.2 mg/L (5.7-26.3)
[2025-07-05 09:00] LABS: ALPHA 1 GLOBULIN 0.3 g/dL (0.2-0.3); ALPHA 2 GLOBULIN 0.4 g/dL (0.5-0.9); BETA 1 GLOBULIN 0.2 g/dL (0.4-0.6); BETA 2 GLOBULIN 0.2 g/dL (0.2-0.5)
[2025-07-10 09:19] LABS: Hematocrit 32.5 % (37-53); Hemoglobin 10.50 g/dL (11.27-16.99); Mean Corpuscular HGB Conc 32.3 g/dL (30-55); Mean Corpuscular Hemoglobin 31.6 pg (27-33); Mean Corpuscular Volume 97.9 fl (82-101); Nucleated Red Blood Cells % 0 %; Platelet Count 93 10^3/cmm (157-399); Red Blood Count 3.32 10^6/uL (3.85-5.65); White Blood Count 4.18 10^3/uL (3.29-11.43)
[2025-07-10 09:44] LABS: Alanine Aminotransferase 10 U/L (0-41); Albumin Level 3.4 g/dL (3.5-5.2); Alkaline Phosphatase 62 U/L (40-130); Anion Gap 16.7 (5-19); Aspartate Amino Transferase 16 U/L (0-40); Blood Urea Nitrogen 52 mg/dL (8-23); Calcium 8.2 mg/dL (8.5-10.5); Carbon Dioxide 25 mmol/L (22-29); Chloride 104 mmol/L (98-107); Creatinine Clr Calc Pharmacy 8.0376; Globulin 2.5 g/dL (1.3-4.6); Glucose 82 mg/dL (65-115); Osmolality Calculated 303 mOsm/kg (285-295); Potassium 5.7 mmol/L (3.5-5.1); Sodium 140 mmol/L (136-145); Total Protein 5.9 g/dL (6.6-8.7)
[2025-07-10] MEDS: bortezomib 3.5 mg SDV 3.3 MG SUBCUT (10:36)
[2025-07-17 09:49] LABS: Hematocrit 31.3 % (37-53); Hemoglobin 10.10 g/dL (11.27-16.99); Mean Corpuscular HGB Conc 32.3 g/dL (30-55); Mean Corpuscular Hemoglobin 31.5 pg (27-33); Mean Corpuscular Volume 97.5 fl (82-101); Nucleated Red Blood Cells % 0 %; Platelet Count 72 10^3/cmm (157-399); Red Blood Count 3.21 10^6/uL (3.85-5.65); White Blood Count 4.01 10^3/uL (3.29-11.43)
[2025-07-17 10:06] LABS: Alanine Aminotransferase 9 U/L (0-41); Albumin Level 3.4 g/dL (3.5-5.2); Alkaline Phosphatase 65 U/L (40-130); Anion Gap 16.3 (5-19); Aspartate Amino Transferase 16 U/L (0-40); Blood Urea Nitrogen 42 mg/dL (8-23); Calcium 8.0 mg/dL (8.5-10.5); Carbon Dioxide 25 mmol/L (22-29); Chloride 102 mmol/L (98-107); Creatinine Clr Calc Pharmacy 9.5742; Globulin 2.3 g/dL (1.3-4.6); Glucose 77 mg/dL (65-115); Osmolality Calculated 295 mOsm/kg (285-295); Potassium 5.3 mmol/L (3.5-5.1); Sodium 138 mmol/L (136-145); Total Protein 5.7 g/dL (6.6-8.7)
[2025-07-17] MEDS: bortezomib 3.5 mg SDV 3.3 MG SUBCUT (11:23)
[2025-07-24 09:53] LABS: Hematocrit 31.9 % (37-53); Hemoglobin 10.30 g/dL (11.27-16.99); Mean Corpuscular HGB Conc 32.3 g/dL (30-55); Mean Corpuscular Hemoglobin 31.9 pg (27-33); Mean Corpuscular Volume 98.8 fl (82-101); Nucleated Red Blood Cells % 0 %; Platelet Count 91 10^3/cmm (157-399); Red Blood Count 3.23 10^6/uL (3.85-5.65); White Blood Count 4.08 10^3/uL (3.29-11.43)
[2025-07-24 10:05] LABS: Alanine Aminotransferase 8 U/L (0-41); Albumin Level 3.5 g/dL (3.5-5.2); Alkaline Phosphatase 60 U/L (40-130); Anion Gap 15.3 (5-19); Aspartate Amino Transferase 14 U/L (0-40); Blood Urea Nitrogen 43 mg/dL (8-23); Calcium 8.0 mg/dL (8.5-10.5); Carbon Dioxide 26 mmol/L (22-29); Chloride 106 mmol/L (98-107); Creatinine Clr Calc Pharmacy 8.3467; Globulin 2.4 g/dL (1.3-4.6); Glucose 66 mg/dL (65-115); Osmolality Calculated 303 mOsm/kg (285-295); Potassium 5.3 mmol/L (3.5-5.1); Sodium 142 mmol/L (136-145); Total Protein 5.9 g/dL (6.6-8.7)
[2025-07-24] MEDS: bortezomib 3.5 mg SDV 3.3 MG SUBCUT (11:38)
[2025-07-31 10:20] LABS: Alanine Aminotransferase 8 U/L (0-41); Albumin Level 3.6 g/dL (3.5-5.2); Alkaline Phosphatase 65 U/L (40-130); Anion Gap 19.3 (5-19); Aspartate Amino Transferase 15 U/L (0-40); Blood Urea Nitrogen 46 mg/dL (8-23); Calcium 8.0 mg/dL (8.5-10.5); Carbon Dioxide 23 mmol/L (22-29); Chloride 104 mmol/L (98-107); Creatinine Clr Calc Pharmacy 9.1696; Globulin 2.2 g/dL (1.3-4.6); Glucose 92 mg/dL (65-115); Osmolality Calculated 304 mOsm/kg (285-295); Potassium 5.3 mmol/L (3.5-5.1); Sodium 141 mmol/L (136-145); Total Protein 5.8 g/dL (6.6-8.7)
[2025-07-31 10:35] LABS: Hematocrit 32.7 % (37-53); Hemoglobin 10.50 g/dL (11.27-16.99); Mean Corpuscular HGB Conc 32.1 g/dL (30-55); Mean Corpuscular Hemoglobin 32.3 pg (27-33); Mean Corpuscular Volume 100.6 fl (82-101); Nucleated Red Blood Cells % 0 %; Platelet Count 98 10^3/cmm (157-399); Red Blood Count 3.25 10^6/uL (3.85-5.65); White Blood Count 4.48 10^3/uL (3.29-11.43)
[2025-07-31] MEDS: bortezomib 3.5 mg SDV 3.3 MG SUBCUT (11:25)
[2025-08-01 10:29] LABS: PROTEIN, TOTAL 5.6 g/dL (6.1-8.1)
[2025-08-01 15:24] LABS: KAPPA LIGHT CHAIN, FREE, SERUM 34.4 mg/L (3.3-19.4); KAPPA/LAMBDA LIGHT CHAINS FREE 0.06 (0.26-1.65); LAMBDA LIGHT CHAIN, FREE, SERU 575.3 mg/L (5.7-26.3)
[2025-08-02 08:09] LABS: ALPHA 1 GLOBULIN 0.3 g/dL (0.2-0.3); ALPHA 2 GLOBULIN 0.5 g/dL (0.5-0.9); BETA 1 GLOBULIN 0.2 g/dL (0.4-0.6); BETA 2 GLOBULIN 0.2 g/dL (0.2-0.5)
== END 2025-08-02 23:59 | disposition home or self-care (01) ==
PROVIDERS: Internal Medicine; PCP Family Medicine; Visit Provider Nurse Practitioner
DX: Z53.9 Procedure and treatment not carried out, unspecified reason; Z51.11 Encounter for antineoplastic chemotherapy; C90.00 Multiple myeloma not having achieved remission; C79.51 Secondary malignant neoplasm of bone; D64.9 Anemia, unspecified; N17.9 Acute kidney failure, unspecified; R03.0 Elevated blood-pressure reading, without diagnosis of hypertension; Z99.2 Dependence on renal dialysis
CPT/HCPCS: 36415; 80053; 82784; 83883; 84155; 84165; 85025; 93306; 96372; 96401; 96402; 99213; 99214; J9041

== ENCOUNTER 2025-08-21 10:08 | Oncology outpatient (recurring) (ONCR) | payer MEDICARE, SELFPAY ==
[2025-08-07 10:17] LABS: Hematocrit 32.6 % (37-53); Hemoglobin 10.60 g/dL (11.27-16.99); Mean Corpuscular HGB Conc 32.5 g/dL (30-55); Mean Corpuscular Hemoglobin 31.7 pg (27-33); Mean Corpuscular Volume 97.6 fl (82-101); Nucleated Red Blood Cells % 0 %; Platelet Count 91 10^3/cmm (157-399); Red Blood Count 3.34 10^6/uL (3.85-5.65); White Blood Count 3.29 10^3/uL (3.29-11.43)
[2025-08-07 10:38] LABS: Alanine Aminotransferase 7 U/L (0-41); Albumin Level 3.5 g/dL (3.5-5.2); Alkaline Phosphatase 59 U/L (40-130); Anion Gap 16.6 (5-19); Aspartate Amino Transferase 15 U/L (0-40); Blood Urea Nitrogen 47 mg/dL (8-23); Calcium 8.0 mg/dL (8.5-10.5); Carbon Dioxide 24 mmol/L (22-29); Chloride 102 mmol/L (98-107); Globulin 2.5 g/dL (1.3-4.6); Glucose 88 mg/dL (65-115); Iron 94 ug/dL (59-158); Osmolality Calculated 296 mOsm/kg (285-295); Potassium 5.6 mmol/L (3.5-5.1); Sodium 137 mmol/L (136-145); Total Iron Binding Capacity 126 mcg/dl; Total Protein 6.0 g/dL (6.6-8.7); Unsaturated Iron Binding 32 ug/dL (112-347)
[2025-08-07 10:54] LABS: Vitamin B12 840 pg/mL (232-1245)
[2025-08-07 10:55] LABS: Creatinine Clr Calc Pharmacy 8.3467; Ferritin 1298 ng/mL (30-400)
[2025-08-07] MEDS: bortezomib 3.5 mg SDV 3.3 MG SUBCUT (12:05)
[2025-08-14] MEDS: bortezomib 3.5 mg SDV 3.3 MG SUBCUT (11:53)
[2025-08-21 10:28] LABS: Hematocrit 31.8 % (37-53); Hemoglobin 10.30 g/dL (11.27-16.99); Mean Corpuscular HGB Conc 32.4 g/dL (30-55); Mean Corpuscular Hemoglobin 31.5 pg (27-33); Mean Corpuscular Volume 97.2 fl (82-101); Nucleated Red Blood Cells % 0 %; Platelet Count 84 10^3/cmm (157-399); Red Blood Count 3.27 10^6/uL (3.85-5.65); White Blood Count 3.81 10^3/uL (3.29-11.43)
[2025-08-21 10:45] LABS: Alanine Aminotransferase 7 U/L (0-41); Albumin Level 3.6 g/dL (3.5-5.2); Alkaline Phosphatase 68 U/L (40-130); Anion Gap 17.4 (5-19); Aspartate Amino Transferase 14 U/L (0-40); Blood Urea Nitrogen 51 mg/dL (8-23); Calcium 7.9 mg/dL (8.5-10.5); Carbon Dioxide 24 mmol/L (22-29); Chloride 102 mmol/L (98-107); Globulin 2.0 g/dL (1.3-4.6); Glucose 83 mg/dL (65-115); Osmolality Calculated 299 mOsm/kg (285-295); Potassium 5.4 mmol/L (3.5-5.1); Sodium 138 mmol/L (136-145); Total Protein 5.6 g/dL (6.6-8.7)
[2025-08-21] MEDS: bortezomib 3.5 mg SDV 3.3 MG SUBCUT (11:07)
== END 2025-09-01 23:59 | disposition home or self-care (01) ==
PROVIDERS: Internal Medicine; PCP Family Medicine; Visit Provider Nurse Practitioner
DX: Z51.11 Encounter for antineoplastic chemotherapy (principal); C90.00 Multiple myeloma not having achieved remission; Z79.899 Other long term (current) drug therapy
CPT/HCPCS: 36415; 80053; 82607; 82728; 82746; 83010; 83540; 83550; 83615; 85025; 96401; 96402; 99213; J9041

== ENCOUNTER 2025-08-23 10:02 | Emergency (ER) | payer MEDICARE, SELFPAY ==
--- OUTSIDE RECORDS SUMMARY | 2025-08-16 08:00 | XMS_ITS | Encounter Summary ---
Author Organization [facility] Address [address] [place] [address] Care Team Providers Care Packing Room Supervisor Name Role Phone Deanna Bansal MD Primary Care Provider [phone] Reason for Visit * Reason Comments Surgical Consult PD cath consult * Eval and Treat (Routine) - Closed Specialty Diagnoses / Procedures Referred By Bridger arias Referred To Contact Surgery / General Surgery Diagnoses End stage renal disease ([facility]) Encounter for fitting and adjustment of peritoneal dialysis catheter Lora Castillo MD [address] [facility] [address] [place] [address] Phone: tel: fax: [facility] Gen Spec [facility]urg [place] [facility] [address] [place] [address] Phone: tel: fax: Referral ID Status Reason Start Date Expiration Date Visits Re quested Visits Authorized [id number] Closed 07/31/2025 08/31/2026 1 1 Encounter Details Date Type Department Care Team (Late st Contact Info) Description 08/16/2025 8:00 AM SENIOR SALES OPERATIONS ANALYST Office Visit [facility] Gen Spec Surg [place] [facility] [address] [place] [address] Lyndon Alva PA [address] [facility] [address] [place] [address] ESRD (end stage renal disease) on dialysis ([facility]) (Primary Dx) Social History Tobacco Use Types Packs/Day Years Used Date Smoking Tobacco: Never Smokeless Tobacco: Never Tobacco Cessation:Counseling Given: Not Answered Sex and Gender Information Value Date Recorded Sex Assigned at Not on file Legal Sex Male 9:19 AM CDT Gender Identity Not on file Sexual Orientation Not on file documented as of this encounter Last Filed Vital Signs Vital Sign Reading Time Taken Comments Blood Pressure 136/80 08/16/2025 8:22 AM SENIOR SALES OPERATIONS ANALYST Pulse 65 08/16/2025 8:22 AM SENIOR SALES OPERATIONS ANALYST Temperature - - Respiratory Rate 18 08/16/2025 8:22 AM SENIOR SALES OPERATIONS ANALYST Oxygen Saturation 97% 08/16/2025 8:22 AM SENIOR SALES OPERATIONS ANALYST Inhaled Oxygen Concentration - - Weight - - Height 190.5 cm (6' 3 ) 08/16/2025 8:22 AM SENIOR SALES OPERATIONS ANALYST Body Mass Index - - documented in this encounter Progress Notes * Lyndon Alva PA - 08/16/2025 8:25 AM CST Patient: Manuel Parsons / 85 y.o. / male : 1940 Chief Complaint: interest in home dialysis History of Present Illness: Manuel Parsons is an 85 y.o. male who presents for evaluation of PD catheter placement. This is a patient of Dr. Castillo who follows with for ESRD. Currently on HD MWF in [place]. The patient is interested in home dialysis. The patient has had an open cholecystectomy and an open prostatectomy. No hernias or hernia repairs. The patient is not on blood thinners. He was told he has a leaky valve and has a visit with cardiology on 09/03 in [place]. Follow with oncology for multiple myeloma, gets chemo injections once a week. Past Medical Hx: Past Medical History: Diagnosis Date Asthma ESRD (end stage renal disease) on dialysis ([facility]) Essential hypertension History of prostate cancer Multiple myeloma ([facility]) Past Surgical Hx: Past Surgical History: Procedure Laterality Date HX CHOLECYSTECTOMY open keenan at [facility] approximately 2009 HX PROSTATECTOMY open prostatectomy in [facility] approximately 1999 HX WISDOM TEETH EXTRACTION Medications: Current Outpatient Medications on File Prior to Visit Medication Sig Dispense Refill cycloPHOSphamide (CYTOXAN) 50 mg capsule Take 600 mg by mouth daily. dexAMETHasone (DECADRON) 4 mg tablet Take 4 mg by mouth. donepeziL (ARICEPT) 10 mg tablet Take 1 Tablet by mouth daily. traZODone (DESYREL) 50 mg tablet Take 50 mg by mouth daily at bedtime. PRN midodrine (PROAMATINE) 5 mg tablet Take 5 mg by mouth 3 times daily. cyanocobalamin (VITAMIN B-12) 100 mcg tablet Take 100 mcg by mouth daily. famotidine (PEPCID) 20 mg tablet Take 20 mg by mouth daily. levothyroxine 125 mcg tablet Take 125 mcg by mouth daily in the morning. fludrocortisone (FLORINEF) 0.1 mg tablet Take 0.1 mg by mouth daily. ondansetron (ZOFRAN) 4 mg Tablet Take 4 mg by mouth every 8 hours as needed for Nausea/Emesis. sucralfate (CARAFATE) 1 gram tablet Take 1 Gram by mouth 2 times daily before meals. vit C-vit [id number]-[id number] OXIDE-lutein (PRESERVISION) 226-90-0.8-5 mg Capsule Take 1 Capsule by mouthdaily. No current facility-administered medications on file prior to visit. Allergies: No Known Allergies Family Hx: No family history on file. Social Hx: Social History Socioeconomic History Marital status: Spouse name: Not on file Number of children: Not on file Years of education: Not on file Highest education level: Not on file Occupational History Not on file Tobacco Use Smoking status: Never Smokeless tobacco: Never Vaping Use Vaping status: Never Used Substance and Sexual Activity Alcohol use: Not on file Drug use: Not on file Sexual activity: Not on file Other Topics Concern Not on file Social History Narrative Not on file Health-Related Social Needs Food Insecurity: Not on file Transportation Needs: Not on file Domestic Concerns: Not on file Housing Stability: Not on file Review of Systems: Negative response indicated by empty box. Constitutional [] Fever [] Weight loss or gain [] Diabetes Gastrointestinal [] Abdominal pain [] Nausea/Vomiting [] Heartburn/GERD [] Diarrhea/Constipation Skin [] Skin changes [] Rash Genitourinary [x] Hx prostate cancer Head/ENT [] Congestion [] Sore throat Musculoskeletal [] Back pain [] Muscle pain Respiratory [x] Asthma [x] Shortness of breath Hematologic [] Abnormal bleeding/bruising [] Use of blood thinners Cardiovascular [] CAD [x] Murmur [x] HTN Neurological [] Hx stroke Social [] Alcohol use [] Tobacco use Psychiatric [] Depression [] Anxiety Physical Exam: General appearance: awake, alert, oriented, answers questions appropriately. Head: atraumatic, Normocephalic, without obvious abnormality Eyes: conjunctivae/corneas clear, sclera non icteric Neck: neck is supple, trachea is midline. No masses identified. Lungs: normal respiratory effort, clear to auscultation bilaterally, no wheeze, crackles, or rales Heart: normal rate and rhythm, S1 and S2 with murmur Abdomen: Soft, non-distended. No masses. Non tender. Well healed RUQ scar. Well healed lower midline scar. No hernia palpated. Extremities: extremities normal, atraumatic, no cyanosis. Mild bilateral lower extremity edema. Neurologic: Grossly normal Musculoskeletal: no deformity or swelling Skin: Warm and dry without jaundice Labs: No results found for: WBC , MANUALWBC , HGB , HGBPOC , HCT , HCTPOC , PLT , MCV No results found for: NA , K , CL , CO2 , CA , BUN , CREAT , GLUCOSE , TOTALPROTEIN , ALBUMIN , BILITOTAL , ALKPHOS , AST , ALT , ANIONGAP , BCRATIO Assessment/Plan: ESRD on HD- Differences in PD and HD discussed with the patient. PD was discussed in detail. Treatment options of laparoscopic peritoneal dialysis catheter placement was discussed with patient along with risks not limited to bleeding, infection, bowel injury or catheter malfunction or infection. Also discussed with the patient that this may need to be revised if not working properly. Patient verbalized understanding and agreement with plan and consent was obtained. Will schedule this in the near future. Explained to the patient that this will be LEFT EXTERIORIZED. If this is left exteriorizedthe patient is aware that this may leak for a short time after placement. The PD department can assist with flushes and dressings. Discussed with history of pelvic surgery there could be adhesive disease that could prevent PD cathplacement. Chronic conditions managed by other providers: - HTN - Multiple myeloma, on weekly injections. - Cardiac murmur. - Asthma - Hx prostate cancer s/p prostatectomy WILL NEED MAIN OR, CARDIOLOGY CLEARANCE AND ONCOLOGY CLEARANCE. WILL NEED TO OBTAIN CARDIOLOGY RECORDS. RECORDS RELEASE SIGNED TODAY. TOBACCO COUNSELING He is not a tobacco/nicotine user. Signed: LINDA Colon 08/16/2025, 9:43 AM OR SALES OPERATIONS ANALYST documented in this encounter Plan of Treatment Upcoming Encounters Date Type Department Care Team (Latest Contact Info) Description 09/12/2025 2:47 PM SENIOR SALES OPERATIONS ANALYST Hospital Encounter [facility] [address] [place] [phone] Jas Canseco DO [address] [address] ESRD (end stage renal disease) on dialysis (CMS/HCC) 09/12/2025 2:47 PM SENIOR SALES OPERATIONS ANALYST - 09/12/2025 4:04 PM SENIOR SALES OPERATIONS ANALYST Surgery [facility] [address] [place] [phone] Jas Canseco DO [address] [address] CATHETER PERITONEAL INSERTION LAPAROSCOPIC 09/23/2025 9:45 AM SENIOR SALES OPERATIONS ANALYST Office Visit [facility] Gen Spec Surg [address] [address] Lyndon Alva PA [address] [phone] Scheduled Procedures Name Priority Associated Diagnoses Date/Ti me CATHETER PERITONEAL INSERTION LAPAROSCOPIC ESRD (end stage renal disease) on dialysis (CMS/HCC) 09/12/2025 2:47 PM SENIOR SALES OPERATIONS ANALYST documented as of this encounter Visit Diagnoses Diagnosis ESRD (end stage renal disease) on dialysis (CMS/HCC)- Primary End stage renal disease ESRD (end stage renal disease) on dialysis (CMS/HCC) End stage renal disease documented in this encounter Care Teams Packing Room Supervisor Relationship Specialty Start Date End Date Deanna Bansal MD [address] [place] [address] PCP - General Family Practice 03/09/22 documented as of this encounter
--- OUTSIDE RECORDS SUMMARY | 2025-08-23 10:10 | XMS_ITS | Encounter Summary ---
Author Organization [facility], [facility] Address [address] [place] [address] Phone Care Team Providers Care Interpreter Deaf Name Role Phone Unavailable Primary Care Provider Unavailabl e Encounter Details Date Type Department Care Team (Late st Contact Info) Description 08/21/2025 Orders Only [facility] [address] [place] [address] Lora Castillo MD [address] [place] [address] Social History Tobacco Use Types Packs/Day Years Used Date Smoking Tobacco: Never Assessed Sex and Gender Information Value Date Recorded Sex Assigned at Not on file Legal Sex Male 9:01 AM EDT Gender Identity Not on file Sexual Orientation Not on file documented as of this encounter Plan of Treatment Not on file documented as of this encounter Procedures Procedure Name Priority Date/Time Associated Diagnosis Comments POST DIALYSIS BUN Routine 08/21/2025 HEMOGLOBIN Routine 08/21/2025 BUN Routine 08/21/2025 SODIUM Routine 08/21/2025 POTASSIUM Routine 08/21/2025 CHLORIDE Routine 08/21/2025 CO2, TOTAL Routine 08/21/2025 documented in this encounter Results * (ABNORMAL) Hemoglobin (08/21/2025) Hemoglobin 10.8(L) 13.2 - 14.0 g/dL [facility] 08/21/2025 08/20/2025 6:0 1 AM CHART COLLECTOR Narrative Resulting Agency Comment Performing Organization Information: Site ID: JOHN Name: [facility] Address: [address] [place] [phone] Director: Livier Rose MD us Lora Castillo MD LAB BLOOD ORDERABLES Final Re sult Performing Organization Address [facility] Co de Phone Number [facility] [address] [place] [address] * Post Dialysis BUN (08/21/2025) BUN Post Dialysis 13 7 - 25 mg/dL [facility] 08/21/2025 08/20/2025 6:0 1 AM CHART COLLECTOR Narrative Resulting Agency Comment Performing Organization Information: Site ID: JOHN Name: [facility] Address: [address] [place] [phone] Director: Livier Rose MD us Lora Castillo MD LAB BLOOD ORDERABLES Final Re sult Performing Organization Address [facility] de Phone Number [facility] [phone] [place] [phone] * CO2 (08/21/2025) Bicarbonate (CO2) 21 20 - 29 mmol/L [facility] 08/21/2025 08/20/2025 6:0 1 AM CHART COLLECTOR Narrative Resulting Agency Comment Performing Organization Information: Site ID: JOHN Name: [facility] Address: [address] [place] [phone] Director: Livier Rose MD us Lora Castillo MD LAB BLOOD ORDERABLES Final Re sult Performing Organization Address [facility] Co de Phone Number [facility] [address] [place] [address] * Chloride (08/21/2025) Chloride 103 98 - 110 mmol/L [facility] 08/21/2025 08/20/2025 6:0 1 AM CHART COLLECTOR Narrative Resulting Agency Comment Performing Organization Information: Site ID: JOHN Name: [facility]le Address: [address] [place] [phone] Director: Livier Rose MD Lora Castillo MD LAB BLOOD ORDERABLES Final Re sult Performing Organization Address City/[facility]/ZIP Co de Phone Number [facility] [address] [place] [phone] * Sodium (08/21/2025) Sodium 136 135 - 146 mmol/L [facility] 08/21/2025 08/20/2025 6:0 1 AM CHART COLLECTOR Narrative Resulting Agency Comment Performing Organization Information: Site ID: JOHN Name: [facility] Resend[facility] Address: [address] [place] [phone] Director: Livier Rose MD Lora Castillo MD LAB BLOOD ORDERABLES Final Re sult Performing Organization Address City/[facility]/ZIP Co de Phone Number [facility] [address] [place] [phone] * (ABNORMAL) BUN (08/21/2025) BUN 56(H) 7 - 25 mg/dL [facility] 08/21/2025 08/20/2025 6:0 1 AM CHART COLLECTOR Narrative Resulting Agency Comment Performing Organization Information: Site ID: JOHN Name: [facility] Resendiza Address: [address] [place] [phone] Director: Livier Rose MD us Lora Castillo MD LAB BLOOD ORDERABLES Final Re sult Performing Organization Address [facility]/ZIP Co de Phone Number [facility] [address] [place] [address] * (ABNORMAL) Potassium (08/21/2025) Potassium 5.4(H) 3.5 - 5.3 mmol/L [facility] 08/21/2025 08/20/2025 6:0 1 AM CHART COLLECTOR Narrative Resulting Agency Comment Performing Organization Information: Site ID: CO Name: [facility] Valle Address: [place] [address] Director: Livier Rose MD Lora Castillo MD LAB BLOOD ORDERABLES Final Re sult Performing Organization Address City/[facility] Co de Phone Number [facility] [address] [place] [address] documented in this encounter Visit Diagnoses Not on filedocumented in this encounter
--- OUTSIDE RECORDS SUMMARY | 2025-08-23 10:10 | XMS_ITS | Encounter Summary ---
Author Organization [facility] Address [address] [facility] [address] [place] [address] Phone Care Team Providers Care Table Games Dealer Name Role Phone Unavailable Primary Care Provider Gloria e Encounter Details Date Type Department Care Team (Late st Contact Info) Description 08/19/2025 [facility] [address] [place] [address] Lora Castillo MD [address] [place] [address] End stage renal disease; Dependence on renal dialysis Social History Tobacco Use Types Packs/Day Years Used Date Smoking Tobacco: Never Assessed Sex and Gender Information Value Date Recorded Sex Assigned at Not on file Legal Sex Male 9:01 AM EDT Gender Identity Not on file Sexual Orientation Not on file documented as of this encounter Miscellaneous Notes * Dialysis Note - Lora Castillo MD - 08/19/2025 12:00 AM CST Patient: Manuel Parsons, 1940, 85y, M Dialysis Location: [facility] Attending Ordering Machine Operator: Lora Castillo Service Date: 08/19/2025 Service Provider: Lora Castillo MD I met face to face with the patient today. OVERVIEW The patient presented with ESRD on dialysis Primary cause of renal failure: Chronic kidney disease, unspecified Comments: VSS. Seen on hd machine. Frail eld Baseline serum creatinine through early December was ~1.1. Of note, he had lost 50 lbs in the six months prior to hospitalization, although he reports his appetite is as good as ever. MAURO s/t extended pre-renal state resulting in ischemia. SrCr continued to increase at [facility], dialysis was initiated. Renal US negative for hydro nephrosis: work up noted positive M spike and IgG lamda. Neg anca, maile, complement levels normal, Sr Albumin 2.2. For PD catheter in 09/2025. Medications and labs reviewed. 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 No changes indicated. BP Stand Pre 08/16/2025: 142/85 2025: 170/94 BP Sit Pre 08/16/2025: 143/100 2025: 160/91 08/12/2025: 159/87 BP Stand Post 08/16/2025: 176/96 2025: 174/91 08/12/2025: 165/79 BP Sit Post 08/16/2025: 167/91 2025: 179/100 08/12/2025: 172/87 Prescribed Tx time 08/16/2025: 4:00 2025: 4:00 08/12/2025: 4:00 Tx Duration 08/16/2025: 4:03 2025: 4:05 08/12/2025: 4:03 Missed Treatments 0 - last 30 days 0 - last 60 days FLUID ASSESSMENT EDW (kg) 08/16/2025: 90.0 2025: 90.0 08/12/2025: 90.0 Weight Pre (kg) 08/16/2025: 91.3 2025: 91.9 08/12/2025: 90.4 Weight Post (kg) 08/16/2025: 90.2 2025: 90.7 08/12/2025: 91.0 PWV (kg) 08/16/2025: 0.2 2025: 0.7 08/12/2025: 1.0 UF Rate (mL/kg/hr) 08/16/2025: 3 2025: 3.2 08/12/2025: -1.6 ADEQUACY ASSESSMENT Comments: Stable trend. spKt/V, URR 07/03/2025: 1.84, 81.0 06/05/2025: 1.55, 75.0 05/08/2025: 1.44, 72.0 ACCESS ASSESSMENT Access Type: CVCatheter Access SubType: Tunneled Access Status: Active (In Use) - 01/28/2025 Access Location: Chest Placed: 01/28/2025 Comments: For PD catheter. ANEMIA ASSESSMENT Comments: On IV iron and DAMON protocol HGB, TSAT 2025: 11.1, - 08/07/2025: 11.0, 49.0 07/31/2025: 9.4, - Ferritin 06/05/2025: 1132.0 03/20/2025: 1451.0 03/06/2025: 1565.0 Mircera, IVP (mcg) 08/05/2025: 100 07/22/2025: 75 07/08/2025: 60 Iron Sucrose (Venofer) (mg) 07/01/2025: 50 06/24/2025: 50 06/17/2025: 50 BMM ASSESSMENT Comments: Added calcitriol. Referred to dietitian. PTH, Intact 06/05/2025: 657.0 03/06/2025: 412.0 02/01/2025: 141.0 Calcium, Phosphorus 08/07/2025: 7.9, 5.0 07/08/2025: 7.8, - 07/03/2025: 6.3, 4.9 Vitamin D (Calcitriol) Oral (mcg) 08/16/2025: 0.5 2025: 0.5 08/12/2025: 0.5 NUTRITION ASSESSMENT Comments: . Potassium controlled. Albumin below goal. Diet reviewed with patient. Referred to dietitian. Potassium, Albumin 2025: 4.2, - 08/07/2025: 5.6, 3.5 07/31/2025: 4.7, - eNPCR 07/03/2025: 1.0 06/05/2025: 0.92 05/08/2025: 0.81 PHYSICAL EXAM Exam Performed. Vital Signs Reviewed. CV - Blood pressure noted. EXT - 1+ edema. EXT - No ulcers. DIAGNOSIS Chief Complaint: N18.6 End stage renal disease Patient is stable. Patient data updated 08/19/2025 at 2:59 PM Signed By: Lora Castillo MD on 08/19/2025 3:00:16 PM documented in this encounter Plan of Treatment Not on file documented as of this encounter Visit Diagnoses Diagnosis End stage renal disease Dependence on renal dialysis documented in this encounter
--- OUTSIDE RECORDS SUMMARY | 2025-08-23 10:10 | XMS_ITS | Clinical Summary ---
Author Organization [facility] Address [address] [facility] [address] [place] [address] Phone Care Team Providers Care Isotope Technologist Name Role Phone Deanna Bansal MD Primary Care Provider [phone] Allergies No known active allergies Medications cycloPHOSphamid e (CYTOXAN) 50 mg capsule Take 600 mg by mouth daily. 07/24/2025 Active dexAMETHasone (DECADRON) 4 mg tablet Take 4 mg by mouth. 07/24/2025 Active donepeziL (ARICEPT) 10 mg tablet Take 1 Tablet by mouth daily. 02/27/2025 Active traZODone (DESYREL) 50 mg tablet Take 50 mg by mouth daily at bedtime. PRN 02/27/2025 Active midodrine (PROAMATINE) 5 mg tablet Take 5 mg by mouth 3 times daily. 02/27/2025 Active cyanocobalamin (VITAMIN B-12) 100 mcg tablet Take 100 mcg by mouth daily. Active famotidine (PEPCID) 20 mg tablet Take 20 mg by mouth daily. Active levothyroxine 125 mcg tablet Take 125 mcg by mouth daily in the morning. Active fludrocortisone (FLORINEF) 0.1 mg tablet Take 0.1 mg by mouth daily. Active ondansetron (ZOFRAN) 4 mg Tablet Take 4 mg by mouth every 8 hours as needed for Nausea/Emesi s. Active sucralfate (CARAFATE) 1 gram tablet Take 1 Gram by mouth 2 times daily before meals. Active vit C-vit [id number] OXIDE-lutein (PRESERVISION) 226-90-0.8-5 mg Capsule Take 1 Capsule by mouth daily. Active Active Problems Problem Noted Date Diagnosed Date ESRD (end stage renal disease) on dialysis 08/16 HTN (hypertension), benign 08/16/2025 Multiple myeloma not having achieved remission 1 10/16/2024 Mild intermittent asthma without complication Murmur, cardiac 08/16/2025 Encounters Date Type Department Care Team Description 08/20/2025 External Device Data [facility] ABSTRACTION Provider, Abstract 08/20/2025 External Device Data [facility] ABSTRACTION Provider, Abstract 08/20/2025 External Device Data [facility] ABSTRACTION Provider, Abstract 08/19/2025 Orders Only [facility] [place] [address] [place] [address] [address] [place] [address] Jas Canseco DO 08/16/2025 8:00 AM INTAKE MAN Office Visit [facility] [place] [facility] [address] [place] [phone] Lyndon Alva PA ESRD (end stage renal disease) on dialysis ([facility]) (Primary Dx) 07/31/2025 Abstract [facility] [place] [address] [place] [address] [address] [place] [phone] Provider, Abstract from Last 3 Months Immunizations Immunization Administration Dates Next Due (PFIZER NUSRAT)(12 YR UP PRIMA RY SERIES) COVID-19 VACCINE - EMERGENCY USE AUTHORIZATION, MRNA, NUSRAT(PF) 30 MCG/0.3 ML IM SUSP 03/09/2022 (Pfizer Bivalent)(12 Yr Up) COVID-19 Vaccine - Emergency Use Authorization, MRNA, Lnp-S(Pf) 30 Mcg/0.3 Ml Susp 08/31/2022 Social History Tobacco Use Types Packs/Day Years Used Date Smoking Tobacco: Never Smokeless Tobacco: Never Tobacco Cessation:Counseling Given: Not Answered Sex and Gender Information Value Date Recorded Sex Assigned at Not on file Legal Sex Male 9:19 AM CDT Gender Identity Not on file Sexual Orientation Not on file Last Filed Vital Signs Vital Sign Reading Time Taken Comments Blood Pressure 136/80 08/16/2025 8:22 AM INTAKE MAN Pulse 65 08/16/2025 8:22 AM INTAKE MAN Temperature - - Respiratory Rate 18 08/16/2025 8:22 AM INTAKE MAN Oxygen Saturation 97% 08/16/2025 8:22 AM INTAKE MAN Inhaled Oxygen Concentration - - Weight - - Height 190.5 cm (6' 3 ) 08/16/2025 8:22 AM INTAKE MAN Body Mass Index - - Plan of Treatment Upcoming Encounters Date Type Department Care Team (Latest Contact Info) Description 09/12/2025 2:47 PM INTAKE MAN Hospital Encounter [facility] [address] [place] [phone] Jas Canseco DO [address] [place] [phone] ESRD (end stage renal disease) on dialysis ([facility]) 09/12/2025 2:47 PM INTAKE MAN - 09/12/2025 4:04 PM INTAKE MAN Surgery [facility] Operating Room [facility] [place] [address] Jas Canseco DO [address] [place] [phone] CATHETER PERITONEAL INSERTION LAPAROSCOPIC 09/23/2025 9:45 AM INTAKE MAN Office Visit [facility] [address] [phone] Lyndon Alva PA [address] [place] [phone] Scheduled Procedures Name Priority Associated Diagnoses Date/Ti me CATHETER PERITONEAL INSERTION LAPAROSCOPIC ESRD (end stage renal disease) on dialysis ([facility]) 09/12/2025 2:47 PM INTAKE MAN Health Maintenance Due Date Last Done Comments DTAP/TDAP/TD VACCINES (1 - Tdap) 1959 PNEUMOCOCCAL VACCINE 50+ YEA RS (1 of 2 - PCV) 1957 ZOSTER VACCINE (1 of 2) 1957 RSV VACCINE (60+ or ) (1 - 1-dose 75+ series) 2013 INFLUENZA VACCINE (#1) 2025 09/02/2023 COVID-19 Vaccine (7 2024-2 6 season) 2025 09/02/2023, 08/31/2022, 03/09/2022, Additional history exists Goals Goal Patient Goal Type Associated Problems Recent Progress Patient-Stated? Author Autogenera holly Goal Care Plan Autogenerated Problem No Carol Ernandez Additional Health Concerns Active Problems Noted Date Diagnosed Date Autogenerated Problem 08/19/2025 Insurance MEDICARE PART A AND B Care Teams Isotope Technologist Relationship Specialty Start Date End Date Deanna Bansal MD [address] [place] [phone] PCP - General Family Practice 03/09/22
--- OUTSIDE RECORDS SUMMARY | 2025-08-23 10:10 | XMS_ITS | Clinical Summary ---
Author Organization [facility] Facility Address [address] [facility] [address] [place] [address] Care Team Providers Care Primary Care Pediatrician Name Role Phone Unavailable Primary Care Provider Unavailrory e Encounters Date Type Department Care Team Description 08/21/2025 Orders Only [facility], [facility] [address] [place] [address] Lora Castillo MD 08/19/2025 [facility], [facility] [address] [place] [address] Lora Castillo MD End stage renal disease; Dependence on renal dialysis 2025 Orders Only [facility] [employer], [facility] [address] [place] [address] Lora Castillo MD 08/12/2025 [facility], [facility] [address] [place] [phone] Barbara Watkins NP End stage renal disease; Dependence on renal dialysis 08/07/2025 Orders Only [place] [facility] [employer], [facility] [address] [place] [address] Lora Castillo MD 08/05/2025 Treatment [facility], [facility] [address] [place] [address] Barbara Watkins NP End stage renal disease; Dependence on renal dialysis 07/31/2025 Orders Only [facility] [employer], [facility] [address] [place] [address] Lora Castillo MD 07/29/2025 [facility], [facility] [address] [place] [address] Lora Castillo MD End stage renal disease; Dependence on renal dialysis 07/24/2025 [facility], [facility] [address] [place] [address] Lora Castillo MD 07/22/2025 Treatment 8[facility], [facility] [address] [place] [address] Barbara Watkins, CHRISTEN End stage renal disease; Dependence on renal dialysis 07/17/2025 [facility], [facility] [address] [place] [address] Lora Castillo MD 07/10/2025 Orders [facility], [facility] [address] [place] [address] Lora Castillo MD 07/10/2025 Treatment 8[facility], [facility] [address] [place] [address] Melva Izaguirre, FLOOR HAND End stage renal disease; Dependence on renal dialysis 07/08/2025 Orders [facility], [facility] [address] [place] [address] Lora Castillo MD 07/03/2025 Treatment 8[facility], [facility] [address] [place] [address] Barbara Watkins, CHRISTEN End stage renal disease; Dependence on renal dialysis 07/03/2025 Orders [facility], [facility] [address] [place] [address] Lora Castillo MD 06/26/2025 Orders [facility], [facility] [address] [place] [address] Lora Castillo MD 06/24/[address] [place] [address] Nephrology [facility], [facility] [address] [place] [phone] Lora Castillo MD End stage renal disease; Dependence on renal dialysis 06/19/2025 Orders Only [place] [facility], [facility] [address] [place] [address] Lora Castillo MD 06/19/[address] [place] [address] Nephrology [facility], [facility] [address] [place] [address] Barbara Watkins NP End stage renal disease; Dependence on renal dialysis 06/12/2025 Orders Only [place] [facility], [facility] [address] [place] [address] Lora Castillo MD 06/10/[address] [place], [place] [address]rology [facility], [facility] [address] [place] [address] Barbara Watkins NP End stage renal disease; Dependence on renal dialysis 06/05/2025 Orders [facility], [facility] [address] [place] [phone] Lora Castillo MD 06/05/[address] [place], [place] [address]rology [facility], [facility] [address] [address] Melva Izaguirre NP 05/27/[address] [place] [address] Nephrology [facility], [facility] [address] [place] [address] Melva Izaguirre NP from Last 3 Months Social History Tobacco Use Types Packs/Day Years Used Date Smoking Tobacco: Never Assessed Sex and Gender Information Value Date Recorded Sex Assigned at Not on file Legal Sex Male 9:01 AM EDT Gender Identity Not on file Sexual Orientation Not on file Plan of Treatment Health Maintenance Due Date Last Done Comments Pneumococcal Vaccine: 50+ Ye ars (1 of 2 - PCV) 1957 Hepatitis B Vaccine (1 of 5 - Risk Dialysis 4-dose series) 1960 Influenza Vaccine Completed 06/28/2025, 08/28/2022 Procedures Procedure Name Priority Date/Time Associated Diagnosis Comments HEMOGLOBIN Routine 08/21/2025 POST DIALYSIS BUN Routine 08/21/2025 CO2, TOTAL Routine 08/21/2025 CHLORIDE Routine 08/21/2025 SODIUM Routine 08/21/2025 BUN Routine 08/21/2025 POTASSIUM Routine 08/21/2025 HEMOGLOBIN Routine 2025 CO2, TOTAL Routine 2025 CHLORIDE Routine 2025 SODIUM Routine 2025 BUN Routine 2025 POTASSIUM Routine 2025 HEPATITIS B SURFACE ANTIGEN W/REFL CONFIRM Routine 08/07/2025 DIFFERENTIAL WITH WBC Routine 08/07/2025 CBC Routine 08/07/2025 PLATELET COUNT Routine 08/07/2025 CREAT CLEARANCE, NORMALIZED Routine 08/07/2025 CREATININE, URINE, TIMED Routine 08/07/2025 POST DIALYSIS BUN Routine 08/07/2025 IRON AND TIBC Routine 08/07/2025 ALBUMIN Routine 08/07/2025 PHOSPHATE ( PHOSPHORUS) Routine 08/07/2025 CALCIUM Routine 08/07/2025 CO2, TOTAL Routine 08/07/2025 CHLORIDE Routine 08/07/2025 SODIUM Routine 08/07/2025 POTASSIUM Routine 08/07/2025 CHEMISTRY Routine 07/31/2025 HEMATOLOGY Routine 07/31/2025 HEMATOLOGY Routine 07/24/2025 CHEMISTRY Routine 07/24/2025 CHEMISTRY Routine 07/17/2025 HEMATOLOGY Routine 07/17/2025 CHEMISTRY Routine 07/10/2025 HEMATOLOGY Routine 07/10/2025 CHEMISTRY Routine 07/08/2025 [facility] RESULTS Routine 07/03/2025 HD KINETICS Routine 07/03/2025 POST CHEMISTRY Routine 07/03/2025 IMMUNO CHEMISTRY Routine 07/03/2025 CHEMISTRY Routine 07/03/2025 HEMATOLOGY Routine 07/03/2025 CHEMISTRY Routine 06/26/2025 HEMATOLOGY Routine 06/26/2025 CHEMISTRY Routine 06/19/2025 HEMATOLOGY Routine 06/19/2025 CHEMISTRY Routine 06/12/2025 HEMATOLOGY Routine 06/12/2025 [facility] LAB RESULTS Routine 06/05/2025 HD KINETICS Routine 06/05/2025 POST CHEMISTRY Routine 06/05/2025 IMMUNO CHEMISTRY Routine 06/05/2025 CHEMISTRY Routine 06/05/2025 HEMATOLOGY Routine 06/05/2025 CHEMISTRY Routine 06/05/2025 TRACE ELEMENTS Routine 06/05/2025 from Last 3 Months Results * Post Dialysis BUN (08/21/2025) Only the most recent of2 resultswithin the time period is included. BUN Post Dialysis 13 7 - 25 mg/dL [facility] 08/21/2025 08/20/2025 6:0 1 AM EXTERIOR DESIGNER Narrative Resulting Agency Comment Performing Organization Information: Site ID: [place] Name: [facility] Address: [address] [place] [address] Director: Livier Rose MD us Lora Castillo MD LAB BLOOD ORDERABLES Final Re sult [facility] [address] [place] [address] * (ABNORMAL) Hemoglobin (08/21/2025) Only the most recent of2 resultswithin the time period is included. Hemoglobin 10.8(L) 13.2 - 14.0 g/dL [facility] 08/21/2025 08/20/2025 6:0 1 AM EXTERIOR DESIGNER Narrative Resulting Agency Comment Performing Organization Information: Site ID: JOHN Name: [facility] Address: [address] [place] [phone] Director: Livier Rose MD us Lora Castillo MD LAB BLOOD ORDERABLES Final Re sult Performing Organization Address [facility] Co de Phone Number [facility] [address] [place] [phone] * (ABNORMAL) BUN (08/21/2025) Only the most recent of2 resultswithin the time period is included. BUN 56(H) 7 - 25 mg/dL [facility] 08/21/2025 08/20/2025 6:0 1 AM EXTERIOR DESIGNER Narrative Resulting Agency Comment Performing Organization Information: Site ID: JOHN Name: [facility] Address: [address] [place] [phone] Director: Livier Rose MD us Lora Castillo MD LAB BLOOD ORDERABLES Final Re sult Performing Organization Address [facility] de Phone Number [facility] [address] [place] [phone] * Sodium (08/21/2025) Only the most recent of3 resultswithin the time period is included. Sodium 136 135 - 146 mmol/L [facility] 08/21/2025 08/20/2025 6:0 1 AM EXTERIOR DESIGNER Narrative Resulting Agency Comment Performing Organization Information: Site ID: JOHN Name: [facility] Address: [address] [place] [phone] Director: Livier Rose MD us Lora Castillo MD LAB BLOOD ORDERABLES Final Re sult Performing Organization Address [facility] Co de Phone Number [facility] [address] [place] [phone] * (ABNORMAL) Potassium (08/21/2025) Only the most recent of3 resultswithin the time period is included. Potassium 5.4(H) 3.5 - 5.3 mmol/L [facility] 08/21/2025 08/20/2025 6:0 1 AM EXTERIOR DESIGNER Narrative Resulting Agency Comment Performing Organization Information: Site ID: [place] [facility] Address: [address] [place] [phone] Director: Livier Rose MD Lora Castillo MD LAB BLOOD ORDERABLES Final Re sult Performing Organization Address [facility] Co de Phone Number [facility] [address] [place] [phone] * Chloride (08/21/2025) Only the most recent of3 resultswithin the time period is included. Chloride 103 98 - 110 mmol/L [facility] 08/21/2025 08/20/2025 6:0 1 AM EXTERIOR DESIGNER Narrative Resulting Agency Comment Performing Organization Information: Site ID: JOHN [facility]: [facility] Address: [address] [place] [phone] Director: Livier Rose MD Lora Castillo MD LAB BLOOD ORDERABLES Final Re sult Performing Organization Address [facility] Co de Phone Number [facility] [address] [place] [address] * CO2 (08/21/2025) Only the most recent of3 resultswithin the time period is included. Bicarbonate (CO2) 21 20 - 29 mmol/L [facility] 08/21/2025 08/20/2025 6:0 1 AM EXTERIOR DESIGNER Narrative Resulting Agency Comment Performing Organization Information: Site ID: JOHN Name: [facility] Address: [address] [place] [phone] Director: Livier Rose MD Lora Castillo MD LAB BLOOD ORDERABLES Final Re sult Performing Organization Address [facility] Phone Number [facility] [address] [place] [phone] * (ABNORMAL) Iron and TIBC (08/07/2025) Iron, Total 73 50 - 180 mcg/dL [facility] TIBC 150(L) 250 - 425 mcg/dL (calc) [facility] Iron Saturation (TSat) 49(H) 20 - 48 % (calc) [facility] 08/07/2025 08/05/2025 9:4 1 AM EXTERIOR DESIGNER Narrative Resulting Agency Comment Performing Organization Information: Site ID: JOHN Name: [facility] Address: [address] [place] [phone] Director: Livier Rose MD Lora Castillo MD LAB BLOOD ORDERABLES Final Re sult Performing Organization Address [facility] de Phone Number [facility] [phone] * (ABNORMAL) Creatinine Clearance, Normalized (08/07/2025) Creatinine 8.09(H) 0.70 - 1.22 mg/dL [facility] Comment: Verified by repeat analysis. Creatinine, Urine Timed OTH mg/dL [facility] Comment: Unable To Report. Result not calculated because one or more required values were not available. Collection Interval, Ur CANCELED hours [facility] Comment:Result canceled by hugo garland. Creatinine, 24H Ur CANCELED g/24 h [facility] Comment:Result canceled by t he ancillary. Amputee Status CANCELED [facility] Comment:Result canceled by t he ancillary. Creatinine Clearance 24Hr Urine CANCELED mL/min [facility] Comment:Result canceled by t he ancillary. Creat Clear, Urine Norm CANCELED mL/min [facility] Comment:Result canceled by t he ancillary. BSA ([place]) CANCELED sq.m [facility] Comment:Result canceled by t he ancillary. Patient Height CANCELED cm [facility] Comment:Result canceled by t he ancillary. Weight (KG) CANCELED kg [facility] Comment:Result canceled by t he ancillary. Volume, (UVOL) OTH mL [facility] Comment: Unable To Report. Result not calculated because one or more required values were not available. 08/07/2025 08/05/2025 9:4 1 AM EXTERIOR DESIGNER Narrative Resulting Agency Comment Performing Organization Information: Site ID: [place] Name: [facility] Address: [address] [place] [phone] Director: Livier Rose MD Lora Castillo MD LAB [id number] SOLICITED RESULTS Final Result [facility] [address] [place] [phone] * Hepatitis B Surface Ag w/Reflex Confirmation (08/07/2025) Hep B Surface Antigen NON-REACTIVE NON-REACT BEN [facility] Comment: For additional information, please refer to http://education.[employer]/faq/EKP482 (This link is being provided for informational/ educational purposes only.) Confirmation CANCELED [facility] Comment:Result canceled by t he ancillary. 08/07/2025 08/05/2025 9:4 1 AM EXTERIOR DESIGNER Narrative Resulting Agency Comment Performing Organization Information: Site ID: JOHN Name: [facility] Address: [address] [place] [phone] Director: Livier Rose MD Lora Castillo MD LAB BLOOD ORDERABLES Final Re sult Performing Organization Address [facility] Co de Phone Number [facility] [address] [place] [address] * Creatinine, urine, timed (08/07/2025) Collection Interval, Ur CANCELED hours [facility] Comment:Result canceled by t cash ancillary. Creatinine, 24H Ur CANCELED g/24 h [facility] Comment:Result canceled by t ancillary. Volume, (UVOL) OTH mL [facility] Comment: Unable To Report. Result not calculated because one or more required values were not available. Creatinine, Urine Timed OTH mg/dL [facility] Comment: Unable To Report. Result not calculated because one or more required values were not available. 08/07/2025 08/05/2025 9:4 1 AM EXTERIOR DESIGNER Narrative Resulting Agency Comment Performing Organization Information: Site ID: JOHN Name: [facility] Address: [address] [place] [phone] Director: Livier Rose MD us Lora Castillo MD LAB URINE ORDERABLES Final Re sult Performing Organization Address [facility] Co de Phone Number [facility] [address] [place] [address] * (ABNORMAL) Differential with WBC (08/07/2025) WBC 4.0 3.8 - 10.8 Thousand/ uL [facility] Neutrophils Absolute 2,264 1,500 - 7,800 cells/uL [facility] Band Neutrophils Absolute, Manual Count CANCELED 0 - 750 cells/uL [facility] Comment:Result canceled by t he ancillary. Metamyelocytes Absolute CANCELED 0 cells/uL [facility] Comment:Result canceled by t he ancillary. Absolute Myelocytes CANCELED 0 cells/uL [facility] Comment:Result canceled by t he ancillary. Absolute Promyelocytes CANCELED 0 cells/uL [facility] Comment:Result canceled by t he ancillary. Lymphocytes Absolute 544(L) 850 - 3,900 cells/uL [facility] Monocytes Absolute 240 200 - 950 cells/uL [facility] Eosinophils Absolute 944(H) 15 - 500 cells/uL [facility] Basophils Absolute 8 0 - 200 cells/uL [facility] Blasts Absolute CANCELED 0 cells/uL [facility] Comment:Result canceled by t he ancillary. NRBC Absolute CANCELED 0 cells/uL [facility] Comment:Result canceled by t ancillary. Neutrophils Relative 56.6 % [facility] Bands Absolute CANCELED % [facility] Comment:Result canceled by t he ancillary. Metamyelocytes Percent CANCELED % [facility] Comment:Result canceled by t he ancillary. Myelocytes Relative CANCELED % [facility] Comment:Result canceled by t he ancillary. Promyelocytes Relative CANCELED % [facility] Comment:Result canceled by t ancillary. Lymphocytes 13.6 % [facility] Variant lymphocytes/100 WBC (Bld) CANCELED 0 - 10 % [facility] Comment:Result canceled by t he ancillary. Monocytes 6.0 % [facility] Eosinophils 23.6 % [facility] Basophils Relative 0.2 % [facility] Blasts CANCELED % [facility] Comment:Result canceled by t he ancillary. nRBC CANCELED 0 /100 WBC [facility] Comment:Result canceled by t he ancillary. Comment(s) CANCELED [facility] Comment:Result canceled by t he ancillary. 08/07/2025 08/05/2025 9:4 1 AM EXTERIOR DESIGNER Narrative Resulting Agency Comment Performing Organization Information: Site ID: JOHN Name: [facility] Address: [address] [place] [phone] Director: Livier Rose MD Lora Castillo MD LAB BLOOD ORDERABLES Final Re sult Performing Organization Address [facility] Co de Phone Number [facility] [address] [place] [phone] * (ABNORMAL) Platelet count (08/07/2025) Platelets 102(L) 140 - 400 Thousand/uL [facility] 08/07/2025 08/05/2025 9:4 1 AM EXTERIOR DESIGNER Narrative Resulting Agency Comment Performing Organization Information: Site ID: JOHN Name: [facility] Address: [address] [place] [phone] Director: Livier Rose MD Lora Castillo MD LAB BLOOD ORDERABLES [facility] Performing Organization Address [facility] Phone Number [facility] [address] [place] [phone] * (ABNORMAL) CBC (08/07/2025) WBC 4.0 3.8 - 10.8 Thousand/u L [facility] RBC 3.49(L) 4.20 - 5.80 Million/uL [facility] Hemoglobin 11.0(L) 13.2 - 14.0 g/dL [facility] Hematocrit 34.2(L) 38.5 - 50.0 % [facility] MCV 98.0 80.0 - 100.0 fL [facility] MCH 31.5 27.0 - 33.0 pg [facility] MCHC 32.2 32.0 - 36.0 g/dL [facility] Comment: For adults, a slight decrease in the calculated MCHC value (in the range of 30 to 32 g/dL) is most likely not clinically significant; however, it should be interpreted with caution in correlation with other red cell parameters and the patient's clinical condition. RDW 15.8(H) 11.0 - 15.0 % [facility] 08/07/2025 08/05/2025 9:4 1 AM EXTERIOR DESIGNER Narrative Resulting Agency Comment Performing Organization Information: Site ID: JOHN Name: [facility] Address: [address] [place] [phone] Director: Livier Rose MD Lora Castillo MD LAB BLOOD ORDERABLES Final Re sult Performing Organization Address [facility]/ZIP Co de Phone Number [facility] [address] [place] [address] [address] * (ABNORMAL) Phosphorus (08/07/2025) Phosphorus 5.0(H) 3.0 - 4.3 mg/dL [facility] 08/07/2025 08/05/2025 9:4 1 AM EXTERIOR DESIGNER Narrative Resulting Agency Comment Performing Organization Information: Site ID: JOHN Name: [facility] Address: [address] [place] [phone] Director: Livier Rose MD Lora Castillo MD LAB BLOOD ORDERABLES Final Re sult Performing Organization Address [facility]/ZIP Co de Phone Number [facility] [address] [place] [address] [address] * (ABNORMAL) Calcium (08/07/2025) Calcium 7.9(L) 8.6 - 10.0 mg/dL [facility] 08/07/2025 08/05/2025 9:4 1 AM EXTERIOR DESIGNER Narrative Resulting Agency Comment Performing Organization Information: Site ID: JOHN Name: [facility] Address: [address] [place] [phone] Director: Livier Rose MD us Lora Castillo MD LAB BLOOD ORDERABLES Final Re sult Performing Organization Address [facility] Co de Phone Number [facility] [address] [place] [address] * (ABNORMAL) Albumin (08/07/2025) Albumin 3.5(L) 3.6 - 5.1 g/dL [facility] 08/07/2025 08/05/2025 9:4 1 AM EXTERIOR DESIGNER Narrative Resulting Agency Comment Performing Organization Information: Site ID: JOHN [facility]: [facility] Address: [address] [place] [phone] Director: Livier Rose MD us Lora Castillo MD LAB BLOOD ORDERABLES Final Re sult Performing Organization Address [facility] Co de Phone Number [facility] [address] [place] [phone] * (ABNORMAL) HEMATOLOGY (07/31/2025) Only the most recent of9 resultswithin the time period is included. Hemoglobin 9.4(L) 14.0 - 18.0 g/dL [facility] Hemoglobin x 3 28.2(L) 42.0 - 54.0 % [facility] 07/31/2025 08/01/2025 9:3 6 AM CDT Narrative [facility] - 08/01/2025 Unless otherwise specified, test(s) performed at: [facility], [address] [place], [place] [id number] SVP: Al Heard M.D. For any questions, please call customer service at FREQUENCY:OTHER Resulting Agency Comment Specimen source: Blood us Lora Castillo MD LAB BLOOD ORDERABLES Final Re sult Performing Organization Address [facility] Co de Phone Number [facility] See order comments or contact performing lab Unknown, [place] * (ABNORMAL) [facility] (07/31/2025) Only the most recent of11 resultswithin the time period is included. Sodium 145 136 - 145 mEq/L [facility] Potassium 4.7 3.5 - 5.1 mEq/L [facility] Chloride 111(H) 96 - 108 mEq/L [facility] Bicarbonate (CO2) 23 22 - 29 mEq/L [facility] 07/31/2025 08/01/2025 9:0 2 AM CDT Narrative [facility] - 08/01/2025 Unless otherwise specified, test(s) performed at: [facility], [address] [place] [address] SVP: Al Heard M.D. For any questions, please call customer service at FREQUENCY:OTHER Resulting Agency Comment Specimen source: Serum us Lora Castillo MD LAB BLOOD ORDERABLES Final Re sult Performing Organization Address [facility] de Phone Number [facility] See order comments or contact performing lab Unknown, [place] * (ABNORMAL) HD KINETICS (07/03/2025) Only the most recent of2 resultswithin the time period is included. % Urea Reduction 81(H) 65 - 80 % [facility] 07/03/2025 07/05/2025 11: 23 AM CDT Narrative Resulting Agency Comment Specimen source: Plasma us Lora Castillo MD LAB BLOOD ORDERABLES Final Re sult Performing Organization Address [facility] Co de Phone Number [facility] See order comments or contact performing lab Unknown, [place] * POST CHEMISTRY (07/03/2025) Only the most recent of2 resultswithin the time period is included. BUN Post Dialysis 11 6 - 19 mg/dL [facility] 07/03/2025 07/05/2025 11: 23 AM CDT Narrative [facility] - 07/05/2025 Unless otherwise specified, test(s) performed at: [facility], [address] [place] [address] SVP: Al Heard M.D. For any questions, please call customer service at FREQUENCY:MONTHLY Resulting Agency Comment Specimen source: Plasma Lora Castillo MD LAB BLOOD ORDERABLES Final Re sult Performing Organization Address [facility] de Phone Number [facility] See order comments or contact performing lab Unknown, [place] * IMMUNO CHEMISTRY (07/03/2025) Only the most recent of2 resultswithin the time period is included. Pathologist [facility] Hep B Surface Ag Negative Negative [facility] 07/03/2025 07/04/2025 10: 55 AM CDT Narrative [facility] - 07/04/2025 Unless otherwise specified, test(s) performed at: [facility], [address] [place] [address] SVP: Al Heard M.D. For any questions, please call customer service at FREQUENCY:MONTHLY Resulting Agency Comment Specimen source: Serum us Lora Castillo MD LAB BLOOD ORDERABLES Final Re sult Performing Organization Address [facility] de Phone Number [facility] See order comments or contact performing lab Unknown, [place] * [facility]HAY Lab Results (07/03/2025) Only the most recent of2 resultswithin the time period is included. nPCR_HD 1.06 [facility] PCR 73.13 [facility] spKt/V Gotch 1.85 [facility] spKt/V (Daugirdas II) 1.84 [facility] WSTDKT/V 2.6 [facility] eKt/V ([place]) 1.61 [facility] eKdrt/V 1.61 [facility] eNPCR 1.00 [facility] eKt/V Gotch 1.61 [facility] e [place] 07/03/2025 07/03/2025 us Abhay Ordering Provider LAB BLOOD ORDERABLES Final Result [facility] Contact Performing lab Unknown, [place] * TRACE ELEMENTS (06/05/2025) Aluminum <5 0 - 10 mcg/L [facility] Comment: This test was developed and its performance characteristics determined by [facility]. It has not been cleared or approved by the FDA. The laboratory is regulated under CLIA as qualified to perform high complexity testing. This test is used for clinical purposes. It should not be regarded as investigational or for research. 06/05/2025 06/06/2025 10: 01 AM CDT Narrative [facility] - 06/06/2025 Unless otherwise specified, test(s) performed at: [facility], [address] [place] [address] SVP: Al Heard M.D. For any questions, please call customer service at FREQUENCY:MONTHLY Resulting Agency Comment Specimen source: Serum Lora Castillo MD LAB BLOOD ORDERABLES Final Re sult [facility] See order comments or contact performing lab Unknown, [place] from Last 3 Months Insurance Medicare
--- OUTSIDE RECORDS SUMMARY | 2025-08-23 10:10 | XMS_ITS | Encounter Summary ---
Author Organization [facility] Address [address] [place] [address] Care Team Providers Care Piano Case Maker Name Role Phone Deanna Bansal MD Primary Care Provider +1- [phone] Encounter Details Date Type Department Care Team (Late st Contact Info) Description 08/19/2025 Orders Only [facility] Gen Spec Surg [place] [address] [place] [address] Jas Canseco DO [address] [place] [address] Social History Tobacco Use Types Packs/Day Years Used Date Smoking Tobacco: Never Smokeless Tobacco: Never Sex and Gender Information Value Date Recorded Sex Assigned at Not on file Legal Sex Male 9:19 AM CDT Gender Identity Not on file Sexual Orientation Not on file documented as of this encounter Progress Notes * Carol Ernandez - 08/19/2025 7:11 AM CST Consent given to pt and signed. Surgical packet given to pt and gone over. Pt advised to hold all blood thinning medication for 5 days prior to surgery. Pt surgery is scheduled for 09/12/25. Pt advised they need to have a xm1 tank driver and that person must stay at the facility while pt is having surgery or the surgery will be cancelled. Pt voiced understanding to all. Pt knows surgery is pending cardiology and oncology clearance CCO SIEVE OPERATOR documented in this encounter Plan of Treatment Upcoming Encounters Date Type Department Care Team (Latest Contact Info) Description 09/12/2025 2:47 PM TOBACCO SIEVE OPERATOR Hospital Encounter [facility] Operating [address] [place] [id number] Jas Canseco DO [address] [address] ESRD (end stage renal disease) on dialysis ([facility]) 09/12/2025 2:47 PM TOBACCO SIEVE OPERATOR - 09/12/2025 4:04 PM TOBACCO SIEVE OPERATOR Surgery [facility] Operating Room [address] [place] [address] Jas Canseco DO [address] [address] CATHETER PERITONEAL INSERTION LAPAROSCOPIC 09/23/2025 9:45 AM TOBACCO SIEVE OPERATOR Office Visit [facility] Gen Spec Surg [address] [address] Lyndon Alva PA [address] [address] Scheduled Procedures Name Priority Associated Diagnoses Date/Ti me CATHETER PERITONEAL INSERTION LAPAROSCOPIC ESRD (end stage renal disease) on dialysis ([facility]) 09/12/2025 2:47 PM TOBACCO SIEVE OPERATOR documented as of this encounter Goals Goal Patient Goal Type Associated Problems Recent Progress Patient-Stated? Author Autogenera holly Goal Care Plan Autogenerated Problem No Carol Ernandez documented as of this encounter Visit Diagnoses Not on filedocumented in this encounter Additional Health Concerns Active Problems Noted Date Diagnosed Date Autogenerated Problem 08/19/2025 documented as of this encounter Care Teams Piano Case Maker Relationship Specialty Start Date End Date Deanna Bansal MD [address] [place] [address] PCP - General Family Practice 03/09/22 documented as of this encounter
--- OUTSIDE RECORDS SUMMARY | 2025-08-23 10:10 | XMS_ITS | Encounter Summary ---
Author Organization [facility] Address [address] [place] [address] Care Team Providers Care Crane Ladle Person Name Role Phone Deanna Bansal MD Primary Care Provider +1- [phone] Encounter Details Date Type Department Care Team (Late st Contact Info) Description 08/20/2025 External Device Data ST[facility] ABSTRACTION Provider, Abstract NO ADDRESS ON FILE Social History Tobacco Use Types Packs/Day Years Used Date Smoking Tobacco: Never Smokeless Tobacco: Never Sex and Gender Information Value Date Recorded Sex Assigned at Not on file Legal Sex Male 9:19 AM CDT Gender Identity Not on file Sexual Orientation Not on file documented as of this encounter Plan of Treatment Upcoming Encounters Date Type Department Care Team (Latest Contact Info) Description 09/12/2025 2:47 PM MAORI PHYSIOTHERAPIST Hospital Encounter [facility] Operating [address] [place] [address] Jas Canseco DO [address] [address] ESRD (end stage renal disease) on dialysis ([facility]) 09/12/2025 2:47 PM MAORI PHYSIOTHERAPIST - 09/12/2025 4:04 PM MAORI PHYSIOTHERAPIST Surgery [facility] Operating Room [address] [place] [address] Jas Canseco DO [address] [address] CATHETER PERITONEAL INSERTION LAPAROSCOPIC 09/23/2025 9:45 AM MAORI PHYSIOTHERAPIST Office Visit [facility] Gen Spec Surg [place] [address] [facility] [address] [place] [address] Lyndon Alva, LINDA [address] [place] [address] Scheduled Procedures Name Priority Associated Diagnoses Date/Ti me CATHETER PERITONEAL INSERTION LAPAROSCOPIC ESRD (end stage renal disease) on dialysis ([facility]) 09/12/2025 2:47 PM MAORI PHYSIOTHERAPIST documented as of this encounter Goals Goal Patient Goal Type Associated Problems Recent Progress Patient-Stated? Author Autogenera holly Goal Care Plan Autogenerated Problem No Carol Ernandez documented as of this encounter Visit Diagnoses Not on filedocumented in this encounter Additional Health Concerns Active Problems Noted Date Diagnosed Date Autogenerated Problem 08/19/2025 documented as of this encounter Care Teams Crane Ladle Person Relationship Specialty Start Date End Date Deanna Bansal MD [address] [place] [id number] PCP - General Family Practice 03/09/22 documented as of this encounter
--- OUTSIDE RECORDS SUMMARY | 2025-08-23 10:10 | XMS_ITS | Encounter Summary ---
Author Organization [facility] Address [address] [place] [address] Care Team Providers Care Shank Threader Name Role Phone Deanna Bansal MD Primary Care Provider +1- [phone] Encounter Details Date Type Department Care Team [...] (Latest Contact Info) Description 09/12/2025 2:47 PM SMALLTALK DEVELOPER Hospital Encounter [facility] Operating [address] [place] [address] Jas Canseco DO [address] [address] ESRD (end stage renal disease) on dialysis ([facility]) 09/12/2025 2:47 PM SMALLTALK DEVELOPER - 09/12/2025 4:04 PM SMALLTALK DEVELOPER Surgery [facility] Operating [address] [place] [address] Jas Canseco DO [address] [address] CATHETER PERITONEAL INSERTION LAPAROSCOPIC 09/23/2025 9:45 AM SMALLTALK DEVELOPER Office Visit [facility] Gen Spec Surg [place] [address] [facility] [address] [place] [address] Lyndon Alva, LINDA [address] [place] [address] Scheduled Procedures Name Priority Associated Diagnoses Date/Ti me CATHETER PERITONEAL INSERTION LAPAROSCOPIC ESRD (end stage renal disease) on dialysis ([facility]) 09/12/2025 2:47 PM SMALLTALK DEVELOPER documented as of this encounter Goals Goal Patient Goal Type Associated Problems Recent Progress Patient-Stated? Author Autogenera holly Goal Care Plan Autogenerated Problem No Carol Ernandez documented as of this encounter Visit Diagnoses Not on filedocumented in this encounter Additional Health Concerns Active Problems Noted Date Diagnosed Date Autogenerated Problem 08/19/2025 documented as of this encounter Care Teams Shank Threader Relationship Specialty Start Date End Date Deanna Bansal MD [address] [place] [phone] PCP - General Family Practice 03/09/22 documented as of this encounter
--- OUTSIDE RECORDS SUMMARY | 2025-08-23 10:10 | XMS_ITS | Encounter Summary ---
Author Organization [facility] Address [address] [place] [address] Care Team Providers Care Chain Builder Name Role Phone Deanna Bansal MD Primary Care Provider +1- [phone] Encounter Details Date Type Department Care Team [...] (Latest Contact Info) Description 09/12/2025 2:47 PM HOLDER PILE DRIVING Hospital Encounter [facility] Operating [address] [place] [address] Jas Canseco DO [address] [address] ESRD (end stage renal disease) on dialysis ([facility]) 09/12/2025 2:47 PM HOLDER PILE DRIVING - 09/12/2025 4:04 PM HOLDER PILE DRIVING Surgery [facility] Operating [address] [place] [address] Jas Canseco DO [address] [address] CATHETER PERITONEAL INSERTION LAPAROSCOPIC 09/23/2025 9:45 AM HOLDER PILE DRIVING Office Visit [facility] Gen Spec Surg [place] [address] [facility] [address] [place] [address] Lyndon Alva, LINDA [address] [place] [address] Scheduled Procedures Name Priority Associated Diagnoses Date/Ti me CATHETER PERITONEAL INSERTION LAPAROSCOPIC ESRD (end stage renal disease) on dialysis ([facility]) 09/12/2025 2:47 PM HOLDER PILE DRIVING documented as of this encounter Goals Goal Patient Goal Type Associated Problems Recent Progress Patient-Stated? Author Autogenera holly Goal Care Plan Autogenerated Problem No Carol Ernandez documented as of this encounter Visit Diagnoses Not on filedocumented in this encounter Additional Health Concerns Active Problems Noted Date Diagnosed Date Autogenerated Problem 08/19/2025 documented as of this encounter Care Teams Chain Builder Relationship Specialty Start Date End Date Deanna Bansal MD [address] [place] [phone] PCP - General Family Practice 03/09/22 documented as of this encounter
[2025-08-23 10:23] VITALS: BP 124/71; PULSE 73; RESP 18; TEMP 36.4; O2SAT 94
--- NOTE | 2025-08-23 10:28 | ECG_ITS ---
[facility] Date: 2025-08-23 Pat Name: Manuel Parsons Department: Room: Gender: Male Financial Reserve Clerk: : 1940 Requested By: Marco Triplett Order Number: [id number] Leah MD: Aguila Craig M.D. Measurements Intervals [place] Rate: 77 P: 32 ME: 209 QRS: -49 QRSD: 88 T: 10 QT: 392 QTc: 444 Interpretive Statements SINUS RHYTHM POSSIBLE ANTERIOR MYOCARDIAL INFARCTION , PROBABLY OLD [30 ms Q WAVE IN V3/V4, OR R < 0.2 mV IN V4] INFERIOR MYOCARDIAL INFARCTION , PROBABLY OLD [40+ ms Q WAVE AND/OR ST/T ABNORMALITY IN II/aVF] Compared to ECG 05/30/2025 14:04:47 First degree AV block no longer present Myocardial infarct finding still present Electronically Signed On 08-24-2025 14:02:26 MEDICAL TRANSCRIPTION EDITOR by Aguila Craig M.D. [email or web address]
--- NOTE | 2025-08-23 10:54 | XR_ITS ---
WS: [id number] XR hip LT 2-3V wo/w pel* [id number] REASON FOR EXAM: Trauma FINDINGS: The femoral head and neck are intact without fracture. The acetabulum is intact without fracture. Occult nondisplaced fracture of the inferior pubic ramus adjacent to the symphysis. XR/XR hip LT 2-3V wo/w pel* [id number] IMPRESSION: Inferior pubic ramus fracture as above.
--- NOTE | 2025-08-23 10:54 | XR_ITS ---
WS: [id number] XR ribs LT mn 3V w CXR1V [id number] REASON FOR EXAM: Trauma FINDINGS: Right IJ temporary dialysis catheter in proper position unchanged compared to 07/26/2025. Moderate tortuosity of the thoracic aorta. Mild cardiomegaly. Compared to the previous examination of 07/26/2025, there continues to be atelectasis in the left lower lobe with left pleural effusion. Small right pleural effusion likely unchanged compared to the previous examination. Old healed rib fractures on the right. Multiple mildly displaced acute left lateral rib fractures 4 through 9. No pneumothorax or subcutaneous emphysema. XR/XR ribs LT mn 3V w CXR1V [id number] IMPRESSION: Chronic unchanged chest abnormalities with acute left rib fractures.
[2025-08-23 10:57] VITALS: BP 121/71; PULSE 72; RESP 16; O2SAT 95
--- NOTE | 2025-08-23 11:19 | W.ED.FALL ---
HPI - Fall General: Chief Complaint: Fall Stated Complaint: Fall- L side body Pain Time Seen by Provider: 08/23/25 10:48 History of Present Illness: 85-year-old male presents emergency room he fell while trying to reach for a pole bar to get out as he fell he hit his left hip and his left ribs he is complaining of pain in those 2 areas. Patient is on dialysis as well. He has a tunneled dialysis catheter right upper chest. He denies directly striking his head there is no loss of consciousness. Denies any other injuries. Associated symptoms-after fall: Reports chest pain (Left chest wall laterally); Denies abdominal pain or neck pain Related Data Home Medications ?Medication ?Instructions ?Recorded ?Confirmed albuterol sulfate 90 mcg/actuation 1 puff inhalation QID PRN 11/05/24 08/25/25 aerosol inhaler Shortness Of Breath levothyroxine 125 mcg tablet 125 mcg PO DAILY 11/05/24 08/25/25 (Levo-T) ferrous sulfate 325 mg (65 mg 325 mg PO DAILY 12/29/24 08/25/25 iron) tablet polyethylene glycol 3350 17 17 g PO DAILY PRN Constipation 12/29/24 08/25/25 gram/dose oral powder (Miralax) vit C 250 mg-vit E 90 mg-zinc 40 1 tab PO BID 12/29/24 08/25/25 mg-copper 1 um-ptmdsr-tbwana capsule (PreserVision AREDS-2) famotidine 20 mg tablet (Acid 20 mg PO BID 02/06/25 08/25/25 Public Finance Specialist (famotidine)) diphenhydramine HCl 25 mg capsule 25 mg PO TID PRN Allergic Reaction 02/09/25 08/25/25 (Benadryl) sucralfate 1 gram tablet 1 g PO BID 02/09/25 08/25/25 acetaminophen 325 mg tablet 650 mg PO QID PRN Fever Or Pain 08/25/25 08/25/25 (Tylenol) bisacodyl 10 mg rectal suppository 10 mg MD DAILY PRN Constipation 08/25/25 08/25/25 hydrocortisone 10 mg tablet 0.5 mg PO TID 08/25/25 08/25/25 magnesium hydroxide 400 mg/5 mL 30 ml PO DAILY PRN Constipation 08/25/25 08/25/25 oral suspension (Milk of Magnesia) sodium phosphates 19 gram-7 118 ml MD DAILY 08/25/25 08/25/25 gram/118 mL enema (Fleet Enema) Previous Rx's ?Medication ?Instructions ?Recorded ondansetron 4 mg disintegrating 4 mg PO Q6H PRN nausea and 02/09/25 tablet vomiting #14 tabs cyanocobalamin (vitamin B-12) 100 1,000 mcg (10 x 100 mcg) PO DAILY 02/17/25 mcg tablet 10 days #0 tabs fludrocortisone 0.1 mg tablet 0.1 mg PO DAILY #30 tabs 02/17/25 donepezil 10 mg tablet (Aricept) 10 mg PO DAILY #30 tabs 02/27/25 midodrine 5 mg tablet 5 mg PO TID #30 tabs 02/27/25 trazodone 50 mg tablet 50 mg PO .qhs PRN insomnia #14 tabs 02/27/25 hydrocodone 5 mg-acetaminophen 325 1 tab PO Q6H PRN pain #20 tabs 08/23/25 mg tablet Allergies Allergy/AdvReac Type Severity Reaction Status Date / Time grass pollen Allergy Unknown Verified 08/25/25 09:51 house dust Allergy Unknown Verified 08/25/25 09:51 mold Allergy Unknown Verified 08/25/25 09:51 tree and shrub pollen Allergy Unknown Verified 08/25/25 09:51 Review of Systems Const: Denies: fever(s) or chills Card: Reports: chest pain (Left chest wall laterally) Resp: Denies: dyspnea GI: Denies: abdominal pain : Denies: dysuria, urinary frequency or urinary urgency Musc: Reports: joint pain (Right hip); Denies: neck pain or back pain Skin/Breast: Denies: rash PFSH ED PFSH: Medical History Gram-negative bacteremia Hood disease Pneumonia Chronic idiopathic constipation 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 Multiple myeloma GERD (gastroesophageal reflux disease) Anemia History of colon polyps Hx of echocardiogram 03/22/2024 Surgical History History of esophagogastroduodenoscopy (EGD) History of colonoscopy Hx laparoscopic cholecystectomy 06/07/2013 Hx of prostatectomy Social History Smoking and tobacco/nicotine status: never used tobacco/nicotine Alcohol intake: never Substance/Drug Use: never Household members: spouse Physical Exam Const: COMMON NORMALS: no acute distress GENERAL APPEARANCE: cooperative and comfortable ORIENTATION/CONSCIOUSNESS: Yes awake, Yes oriented to person, Yes oriented to place and Yes oriented to time HENMT: COMMON NORMALS: normocephalic, atraumatic and hearing grossly normal bilaterally HEAD & SCALP: normocephalic and atraumatic Chest: OTHER: Pain to palpation on the left anterior axillary chest wall at the level of 5th through 9th ribs Resp: COMMON NORMALS: normal respiratory effort, No retractions and No use of accessory muscles OTHER: Decreased breath sounds at the right base Cardio: COMMON NORMALS: regular rate, regular rhythm and No murmurs present (Cardio) RATE: regular rate RHYTHM: regular rhythm GI: COMMON NORMALS: Soft to palpation and No hepatosplenomegaly present AUSCULTATION: Yes normoactive bowel sounds PALPATION: Yes Soft to palpation, No Tenderness to palpation present (GI), No Guarding due to palpation present (GI) and Yes No hepatosplenomegaly present Extremity: COMMON NORMALS: normal to inspection, capillary refill normal, no clubbing, cyanosis or edema, no calf tenderness and no pedal edema Neuro: SENSORIUM/ORIENTATION: Yes oriented to person, Yes oriented to place and Yes oriented to time Skin: COMMON NORMALS: no rashes or lesions noted GENERAL SKIN EXAM: no rashes or lesions noted Course Vital Signs: Vital signs: Vital Signs Temperature 97.5 F L 08/23/25 10:23 Pulse Rate 59 L 08/23/25 14:07 Respiratory Rate 16 08/23/25 10:57 Blood Pressure 155/87 08/23/25 14:07 Pulse Oximetry 94 08/23/25 14:07 Oxygen Delivery Me thod Room Air 08/23/25 10:57 MDM - Fall Medical Decision Making Medical decision making Social determinants: Unable to manage ADLs independently on dialysis I reviewed the patient's medical record. I reviewed the patient's current home meds> Alternate historians: Family members Differential diagnosis: Rib fractures pneumothorax pneumonia Lab Review: Labs reviewed as found on the chart. No leukocytosis. Chronic anemia. Creatinine 7.8. No hyperkalemia. Neck. Imaging: Right lower lobe effusion chronic. Assessment of risk Level of risk: Moderate Hospitalization considerations: Reexamination: Unchanged from initial exam Assessment and plan: Multiple rib fractures. Pleural effusion has worsened slightly suspect some atelectasis his white count is not elevated his oxygen saturations are normal. He is afebrile and vital signs are stable. He will require significant increase in assistance with the level of care with his pubic rami fracture and rib fractures. Will also need to continue on dialysis regularly. Lab Data 08/23/25 11:12 08/23/25 11:12 Radiology Impressions Hip/Pelvis X-Ray 08/23/25 10:54 IMPRESSION: Inferior pubic ramus fracture as above. Ribs X-Ray 08/23/25 10:54 IMPRESSION: Chronic unchanged chest abnormalities with acute left rib fractures. Laboratory Results WBC 4.31 10^3/uL (3.29-11.43) 08/23/25 11:12 RBC 3.24 10^6/uL (3.85-5.65) L 08/23/25 11:12 Hgb 10.30 g/dL (11.27-16.99) L 08/23/25 11:12 Hct 31.5 % (37-53) L 08/23/25 11:12 MCV 97.2 fl (82-101) 08/23/25 11:12 MCH 31.8 pg (27-33) 08/23/25 11:12 MCHC 32.7 g/dL (30-55) 08/23/25 11:12 RDW 15.8 % (12.1-15.1) H 08/23/25 11:12 Plt Count 73 10^3/cmm (157-399) L 08/23/25 11:12 MPV 10.9 fL (7.4-10.4) H 08/23/25 11:12 Neut % (Auto) 77.6 % 08/23/25 11:12 Lymph % (Auto) 5.1 % 08/23/25 11:12 [place] % (Auto) 6.0 % 08/23/25 11:12 Eos % (Auto) 8.1 % 08/23/25 11:12 Baso % (Auto) 0.2 % 08/23/25 11:12 Neut # (Auto) 3.34 10^3/uL (1.8-7.7) 08/23/25 11:12 Lymph # (Auto) 0.2 10^3/uL (0.8-4.8) L 08/23/25 11:12 [place] # (Auto) 0.3 10^3/uL (0.2-0.9) 08/23/25 11:12 Eos # (Auto) 0.4 10^3/uL (0.0-0.8) 08/23/25 11:12 Baso # (Auto) 0.0 10^3/uL (0.0-0.1) 08/23/25 11:12 Nucleated RBC % (auto) 0 % 08/23/25 11:12 Nucleated RBCs # 0.0 /100WBC 08/23/25 11:12 Sodium 138 mmol/L (136-145) 08/23/25 11:12 Potassium 5.1 mmol/L (3.5-5.1) 08/23/25 11:12 Chloride 101 mmol/L (98-107) 08/23/25 11:12 Carbon Dioxide 24 mmol/L (22-29) 08/23/25 11:12 Anion Gap 18.1 (5-19) 08/23/25 11:12 BUN 49 mg/dL (8-23) H 08/23/25 11:12 Creatinine 7.8 mg/dL (0.7-1.2) H* 08/23/25 11:12 GFR Calculation Not Reportable 08/23/25 11:12 Glucose 90 mg/dL (65-115) 08/23/25 11:12 Calculated Osmolality 299 mOsm/kg (285-295) H 08/23/25 11:12 Calcium 8.2 mg/dL (8.5-10.5) L 08/23/25 11:12 Total Bilirubin 0.5 mg/dL (0.15-1.2) 08/23/25 11:12 AST 17 U/L (0-40) 08/23/25 11:12 ALT 11 U/L (0-41) 08/23/25 11:12 Alkaline Phosphatase 64 U/L (40-130) 08/23/25 11:12 Total Protein 5.9 g/dL (6.6-8.7) L 08/23/25 11:12 Albumin 3.7 g/dL (3.5-5.2) 08/23/25 11:12 Globulin 2.2 g/dL (1.3-4.6) 08/23/25 11:12 All radiology interpretation(s) finalized by discharge Discharge Plan Discharge Patient Disposition: Home Clinical Impression: Closed rib fracture, Fracture of left inferior pubic ramus, ESRD (end stage renal disease) Condition: Stable Prescriptions: New hydrocodone-acetaminophen 5-325 mg tablet 1 tab PO Q6H PRN (Reason: pain) Qty: 20 0RF No Action levothyroxine [Levo-T] 125 mcg tablet 125 mcg PO DAILY albuterol sulfate 90 mcg/actuation HFA aerosol inhaler 1 puff inhalation QID PRN (Reason: Shortness Of Breath) famotidine [Acid Public Finance Specialist (famotidine)] 20 mg tablet 20 mg PO BID fludrocortisone 0.1 mg Tablet 0.1 mg PO DAILY Qty: 30 0RF cyanocobalamin (vitamin B-12) 100 mcg tablet 1,000 mcg PO DAILY 10 Days Qty: 0 0RF ferrous sulfate 325 mg (65 mg iron) Tablet 325 mg PO DAILY PreserVision AREDS-2 250-90-40-1 mg Capsule 1 tab PO BID polyethylene glycol 3350 [Miralax] 17 gram/dose powder 17 g PO DAILY PRN (Reason: Constipation) sucralfate 1 gram Tablet 1 g PO BID diphenhydramine HCl [Benadryl] 25 mg Capsule 25 mg PO TID PRN (Reason: Allergic Reaction) ondansetron 4 mg tablet,disintegrating 4 mg PO Q6H PRN (Reason: nausea and vomiting) Qty: 14 0RF donepezil [Aricept] 10 mg tablet 10 mg PO DAILY Qty: 30 0RF trazodone 50 mg tablet 50 mg PO .qhs PRN (Reason: insomnia) Qty: 14 0RF midodrine 5 mg Tablet 5 mg PO TID Qty: 30 0RF Rx Instructions: Hold for systolic blood pressure more than 110 mmHg hydrocortisone 10 mg tablet 0.5 mg PO TID acetaminophen [Tylenol] 325 mg Tablet 650 mg PO QID PRN (Reason: Fever Or Pain) magnesium hydroxide [Milk of Magnesia] 400 mg/5 mL Suspension 30 ml PO DAILY PRN (Reason: Constipation) bisacodyl 10 mg Suppository 10 mg MD DAILY PRN (Reason: Constipation) Fleet Enema 19-7 gram/118 mL Enema 118 ml MD DAILY Discharge Orders: Discharge ED (Routine); Ordered 08/23/25 Ordered By: Marco Ulrich Referrals: Cristian Roman MD [Primary Care Provider, [facility]] Discharge Diet: Usual diet Discharge Activity: Limit activity as instructed Patient Instructions: Opioid Safety, Pain Management, Patient Portal & Jesika Instructions Activity Restrictions/Additional Instructions: Thank you for choosing [facility] for your healthcare needs today. It is very important that you follow up as instructed or that you return to the Emergency Department should you have concerns or if your condition changes or worsens in any way. Emergency department visits are focused on emergent conditions, in some cases you may require further evaluation on an outpatient basis. You were seen in the emergency room after a fall. You have a left inferior pubic rami fracture and acute rib fractures on the left side as well. Neither of these injuries require surgical intervention but will take some time to heal from. You are given pain medications. Recommend that you continue your dialysis use the pain medications as needed therapy at the [facility] can help you maintain your level of function while these are healing. (Please note that included in your discharge packet is information concerning opioid safety and pain management. This information is given to all patients were discharged from the ER regardless of their discharge diagnosis or the medicines they usually take or are prescribed.) Print Language: Serbian Coding Level of Care Code ED Electronic Assembler Group Leader for Venancio Downey
[2025-08-23 11:30] LABS: Hematocrit 31.5 % (37-53); Hemoglobin 10.30 g/dL (11.27-16.99); Mean Corpuscular HGB Conc 32.7 g/dL (30-55); Mean Corpuscular Hemoglobin 31.8 pg (27-33); Mean Corpuscular Volume 97.2 fl (82-101); Nucleated Red Blood Cells % 0 %; Platelet Count 73 10^3/cmm (157-399); Red Blood Count 3.24 10^6/uL (3.85-5.65); White Blood Count 4.31 10^3/uL (3.29-11.43)
[2025-08-23 11:51] LABS: Alanine Aminotransferase 11 U/L (0-41); Albumin Level 3.7 g/dL (3.5-5.2); Alkaline Phosphatase 64 U/L (40-130); Anion Gap 18.1 (5-19); Aspartate Amino Transferase 17 U/L (0-40); Blood Urea Nitrogen 49 mg/dL (8-23); Calcium 8.2 mg/dL (8.5-10.5); Carbon Dioxide 24 mmol/L (22-29); Chloride 101 mmol/L (98-107); Globulin 2.2 g/dL (1.3-4.6); Glucose 90 mg/dL (65-115); Osmolality Calculated 299 mOsm/kg (285-295); Potassium 5.1 mmol/L (3.5-5.1); Sodium 138 mmol/L (136-145); Total Protein 5.9 g/dL (6.6-8.7)
--- NOTE | 2025-08-23 12:30 | ECG_ITS ---
[employer] Anal[employer] Test Date: 2025-08-23 Pat Name: Manuel Parsons Department: Room: Gender: Male Pearl Peller: : 1940 Requested By: Marco Triplett Order Number: [id number] Leah MD: Aguila Craig M.D. Measurements Intervals [place] Rate: 62 P: 49 IN: 218 QRS: -48 QRSD: 94 T: 35 QT: 423 QTc: 432 Interpretive Statements SINUS RHYTHM WITH FIRST DEGREE AV BLOCK PATTERN CONSISTENT WITH PULMONARY DISEASE INFERIOR MYOCARDIAL INFARCTION , PROBABLY OLD [40+ ms Q WAVE AND/OR ST/T ABNORMALITY IN II/aVF] Compared to ECG 08/23/2025 10:28:16 First degree AV block now present Myocardial infarct finding still present Electronically Signed On 08-24-2025 14:21:02 MOBILE APPLICATION DEVELOPMENT LEAD by Aguila Craig M.D. [email or web address]
--- NOTE | 2025-08-23 13:02 | PC.SOCIAL ---
SNF Placement: CM was called to ER by physician to discuss SNF placement. CM reviewed information and patient will not have a qualifying stay and will have to private pay for SNF. CM discussed w/ patient and son. They are agreeable to private pay. Patient does go to dialysis on MWF @ [facility] in [place]. New Referral faxed to [facility] @ this time. Called and updated Iman @ [facility] of referral. [employer] Access Code: [email or web address] has been completed and signed by by Dr. Ulrich. Dr. Ulrich does request CM f/up w/ [facility] to see if patient can have a session tomorrow as he is currently missing dialysis b/c he is in the hospital and he does not think patient can wait until Tuesday for dialysis. CM called [facility] and patient due to holiday patient is scheduled to come in on Tuesday @ 1130.
[2025-08-23] MEDS: morphine 4 mg/mL SDV 1 mL 2 MG IVP (13:37)
--- NOTE | 2025-08-23 13:59 | PC.SOCIAL ---
SNF Placement Iman w/ [facility] calls back and report that they can accept; but family will have to transport to dialysis. CM to room and discussed w/ family. CM explained that patient will go to dialysis on Tuesday. CM called [facility] and obtained quote for $90 w/c transport to dialysis. Cm explained that therapy is not included w/ cost that it is room and board. Patient will have assistance w/ going to the [facility] and they will walk w/ him if he requests assistance w/ walking. Family verbalized understanding and is agreeable to private pay @ SNF @ this time. CM updated Dr. Ulrich that he can DC. Family will transport. DC orders faxed to [facility] @ this time. CM called Iman @ [facility] and updated that patient is DCing.
[2025-08-23 14:07] VITALS: BP 155/87; PULSE 59; O2SAT 94
--- NOTE | 2025-08-23 14:10 | PC.NURSE ---
ATTEMPTED REPORT TO DUNCAN SINGH AT TIME OF DISCHARGE. NO ACCEPTING NURSE TO GIVE REPORT TO AT THAT TIME.
== END 2025-08-23 14:10 | disposition home or self-care (01) ==
PROVIDERS: Emergency Provider Family Medicine; PCP Family Medicine
DX: S32.592A Other specified fracture of left pubis, initial encounter for closed fracture (principal); S22.42XA Multiple fractures of ribs, left side, initial encounter for closed fracture; W19.XXXA Unspecified fall, initial encounter; N18.6 End stage renal disease
CPT/HCPCS: 36415; 71101; 73502; 80053; 85025; 93005; 96374; 99285; J2270

== ENCOUNTER 2025-08-25 09:41 | Inpatient (IN) | payer MEDICARE, SELFPAY ==
[2025-08-25] VITALS (59 sets, daily range): BP systolic 72–144; BP diastolic 42–89; PULSE 58–138; RESP 10–30; TEMP 36.2–36.8; O2SAT 89–100; BMI 25.0; BMI 25.4
--- OUTSIDE RECORDS SUMMARY | 2025-08-25 09:47 | XMS_ITS | Encounter Summary ---
Author Organization [facility] Address [address] [place] [address] Care Team Providers Care Director Of Pupil Personnel Program Name Role Phone Deanna Bansal MD Primary Care Provider [phone]- [phone] Encounter Details Date Type Department Care Team [...] (Latest Contact Info) Description 09/12/2025 2:47 PM COLOR STRAINING BAG WASHER Hospital Encounter [facility] Operating [address] [place] [address] Jas Canseco DO [address] [address] ESRD (end stage renal disease) on dialysis ([facility]) 09/12/2025 2:47 PM COLOR STRAINING BAG WASHER - 09/12/2025 4:04 PM COLOR STRAINING BAG WASHER Surgery [facility] Operating Room [address] [place] [address] Jas Canseco DO [address] [address] CATHETER PERITONEAL INSERTION LAPAROSCOPIC 09/23/2025 9:45 AM COLOR STRAINING BAG WASHER Office Visit [facility] Gen Spec S[place] [address] [facility] [address] [place] [address] Lyndon Alva, LINDA [address] [place] [address] Scheduled Procedures Name Priority Associated Diagnoses Date/Ti me CATHETER PERITONEAL INSERTION LAPAROSCOPIC ESRD (end stage renal disease) on dialysis ([facility]) 09/12/2025 2:47 PM COLOR STRAINING BAG WASHER documented as of this encounter Goals Goal Patient Goal Type Associated Problems Recent Progress Patient-Stated? Author Autogenera holly Goal Care Plan Autogenerated Problem No Carol Ernandez documented as of this encounter Visit Diagnoses Not on filedocumented in this encounter Additional Health Concerns Active Problems Noted Date Diagnosed Date Autogenerated Problem 08/19/2025 documented as of this encounter Care Teams Director Of Pupil Personnel Program Relationship Specialty Start Date End Date Deanna Bansal MD [address] [place] [id number] PCP - General Family Practice 03/09/22 documented as of this encounter
--- OUTSIDE RECORDS SUMMARY | 2025-08-25 09:47 | XMS_ITS | Encounter Summary ---
Author Organization [facility] [employer], [facility] Address [address] [facility] [address] [place] [address] Phone Care Team Providers Care Decker Operator Name Role Phone Unavailable Primary Care Provider Gloria e Encounter Details Date Type Department Care Team (Late st Contact Info) Description 08/19/2025 Treatment [facility], [facility] [address] [place] [address] Lora Castillo MD [address] [place] [address] End stage renal disease; Dependence [...] Manuel Parsons, 1940, 85y, M Dialysis Location: [facility] Attending Transport Operations Inspector: Lora Castillo Service Date: 08/19/2025 Service Provider: [...] in ischemia. SrCr continued to increase at [facility], dialysis was initiated. Renal US negative for [...]
--- OUTSIDE RECORDS SUMMARY | 2025-08-25 09:47 | XMS_ITS | Clinical Summary ---
Author Organization [facility] Address [address] [facility] [address] [place] [address] Phone Care Team Providers Care Public Policy Associate Name Role Phone Deanna Bansal MD Primary Care Provider +1- [phone] Allergies No known active allergies Medications cycloPHOSphamid [...] times daily before meals. Active vit C-vit A-dyiqui-xstw OXIDE-lutein (PRESERVISION) 226-90-0.8-5 mg Capsule Take 1 [...] STL ABSTRACTION Provider, Abstract 08/19/2025 Orders Only [facility] Gen Spec S[facility] [place] [address] [place] [address] [address] [place] [address] Jas Canseco DO 08/16/2025 8:00 AM FEATHER CUTTING MACHINE FEEDER Office Visit [facility] Gen Spec [facility] [place] [facility] [address] [place] [phone] Lyndon Alva PA ESRD (end stage renal disease) on dialysis ([facility]) (Primary Dx) 07/31/2025 Abstract [facility] Gen Spec Surg [place] [address] [place] [address] [address] [place] [phone] Provider, Abstract from Last 3 Months Immunizations [...] Comments Blood Pressure 136/80 08/16/2025 8:22 AM FEATHER CUTTING MACHINE FEEDER Pulse 65 08/16/2025 8:22 AM FEATHER CUTTING MACHINE FEEDER Temperature - - Respiratory Rate 18 08/16/2025 8:22 AM FEATHER CUTTING MACHINE FEEDER Oxygen Saturation 97% 08/16/2025 8:22 AM FEATHER CUTTING MACHINE FEEDER Inhaled Oxygen Concentration - - Weight - - Height 190.5 cm (6' 3 ) 08/16/2025 8:22 AM FEATHER CUTTING MACHINE FEEDER Body Mass Index - - Plan of Treatment Upcoming Encounters Date Type Department Care Team (Latest Contact Info) Description 09/12/2025 2:47 PM FEATHER CUTTING MACHINE FEEDER Hospital Encounter [facility] Operating Room [address] [place] [phone] Jas Canseco DO [address] [place] [address] ESRD (end stage renal disease) on dialysis ([facility]) 09/12/2025 2:47 PM FEATHER CUTTING MACHINE FEEDER - 09/12/2025 4:04 PM FEATHER CUTTING MACHINE FEEDER Surgery [facility] Operating Room On license of [facility] [place] [address] Jas Canseco DO [address] [place] [address] CATHETER PERITONEAL INSERTION LAPAROSCOPIC 09/23/2025 9:45 AM FEATHER CUTTING MACHINE FEEDER Office Visit [facility] Gen Spec Surg [address] [address] Lyndon Alva PA [address] [place] [address] Scheduled Procedures Name Priority Associated Diagnoses Date/Ti me CATHETER PERITONEAL INSERTION LAPAROSCOPIC ESRD (end stage renal disease) on dialysis ([facility]) 09/12/2025 2:47 PM FEATHER CUTTING MACHINE FEEDER Health Maintenance Due Date Last Done Comments [...] MEDICARE PART A AND B Care Teams Public Policy Associate Relationship Specialty Start Date End Date Deanna Bansal MD [address] [place] [address] PCP - General Family Practice 03/09/22
--- OUTSIDE RECORDS SUMMARY | 2025-08-25 09:47 | XMS_ITS | Encounter Summary ---
Author Organization [facility] Address [address] [place] [address] Care Team Providers Care Pediatric Acute Care Unit Nurse Name Role Phone Deanna Bansal MD Primary Care Provider +1- [phone] Encounter Details Date Type Department Care Team [...] (Latest Contact Info) Description 09/12/2025 2:47 PM VIDEOTAPE OPERATOR Hospital Encounter [facility] Operating Room [address] [place] [address] Jas Canseco DO [address] [address] ESRD (end stage renal disease) on dialysis ([facility]) 09/12/2025 2:47 PM VIDEOTAPE OPERATOR - 09/12/2025 4:04 PM VIDEOTAPE OPERATOR Surgery [facility] Operating Room [address] [place] [address] Jas Canseco DO [address] [address] CATHETER PERITONEAL INSERTION LAPAROSCOPIC 09/23/2025 9:45 AM VIDEOTAPE OPERATOR Office Visit [facility] Gen Spec Surg [place] [address] [facility] [address] [place] [address] Lyndon Alva, LINDA [address] [place] [address] Scheduled Procedures Name Priority Associated Diagnoses Date/Ti me CATHETER PERITONEAL INSERTION LAPAROSCOPIC ESRD (end stage renal disease) on dialysis ([facility]) 09/12/2025 2:47 PM VIDEOTAPE OPERATOR documented as of this encounter Goals Goal Patient Goal Type Associated Problems Recent Progress Patient-Stated? Author Autogenera holly Goal Care Plan Autogenerated Problem No Carol Ernandez documented as of this encounter Visit Diagnoses Not on filedocumented in this encounter Additional Health Concerns Active Problems Noted Date Diagnosed Date Autogenerated Problem 08/19/2025 documented as of this encounter Care Teams Pediatric Acute Care Unit Nurse Relationship Specialty Start Date End Date Deanna Bansal MD [address] [place] [phone] PCP - General Family Practice 03/09/22 documented as of this encounter
--- OUTSIDE RECORDS SUMMARY | 2025-08-25 09:47 | XMS_ITS | Clinical Summary ---
Author Organization [facility] Facility Address [address] [facility] [address] [place] [address] Care Team Providers Care Unix Consultant Name Role Phone Unavailable Primary Care Provider Unavailrory e Encounters Date Type Department Care Team Description 08/21/2025 Orders Only [facility], [facility] [address] [place] [address] Lora Castillo MD 08/19/2025 Treatment [facility] [employer], [facility] [address] [place] [address] Lora Castillo MD End stage renal disease; Dependence on renal dialysis 2025 Orders Only [facility], [facility] [address] [place] [address] Lora Castillo MD 08/12/2025 Treatment [facility] [employer], [facility] [address] [place] [phone] Barbara Watkins NP End stage renal disease; Dependence on renal dialysis 08/07/2025 Orders Only [facility] [facility], [facility] [address] [place] [address] Lora Castillo MD 08/05/2025 Treatment [facility] [employer], [facility] [address] [place] [address] Barbara Watkins NP End stage renal disease; Dependence on renal dialysis 07/31/2025 Orders Only [facility], [facility] [address] [place] [address] Lora Castillo MD 07/29/2025 [facility], [facility] [address] [place] [address] Lora Castillo MD End stage renal disease; Dependence on renal dialysis 07/24/2025 [facility], [facility] [address] [place] [address] Lora Castillo MD 07/22/2025 Treatment [facility], [facility] [address] [place] [address] Barbara Watkins, CHRISTEN End stage renal disease; Dependence on renal dialysis 07/17/2025 [facility], [facility] [address] [place] [address] Lora Catsillo MD 07/10/2025 [facility], [facility] [address] [place] [address] Lora Castillo MD 07/10/2025 Treatment [facility], [facility] [address] [place] [address] Melva Izaguirre, ROUSTABOUT CREW LEADER End stage renal disease; Dependence on renal dialysis 07/08/2025 [facility], [facility] [address] [place] [address] Lora Castillo MD 07/03/2025 Treatment [facility], [facility] [address] [place] [address] Barbara Watkins, CHRISTEN End stage renal disease; Dependence on renal dialysis 07/03/2025 [facility], [facility] [address] [place] [address] Lora Castillo MD 06/26/2025 [facility], [facility] [address] [place] [address] Lora Castillo MD 06/24/[address] [place] [address] Nephrology [facility], [facility] [address] [place] [address] Lora Castillo MD End stage renal disease; Dependence on renal dialysis 06/19/2025 Orders Only [facility], [facility] [address] [place] [address] Lora Castillo MD 06/19/[address] [place] [address] Nephrology [facility], [facility] [address] [place] [address] Barbara Watkins NP End stage renal disease; Dependence on renal dialysis 06/12/2025 Orders Only [facility], [facility] [address] [place] [address] Lora Castillo MD 06/10/[address] [place], [place] [address]rology [facility], [facility] [address] [place] [address] Barbara Watkins NP End stage renal disease; Dependence on renal dialysis 06/05/2025 [facility], [facility] [address] [place] [phone] Lora Castillo MD 06/05/[address] [place], [place] [address]rology [facility], [facility] [address] [address] Melva Izaguirre NP 05/27/[address] [place] [address] Nephrology [facility], [facility] [address] [place] [address] Melva Izaguirre NP from Last [...] Post Dialysis 13 7 - 25 mg/dL [facility] 08/21/2025 08/20/2025 6:0 1 AM POLICE DISTRICT SWITCHBOARD OPERATOR Narrative Resulting Agency Comment Performing Organization Information: Site ID: [place] Name: [facility] Address: [address] [place] [address] Director: Livier Rose MD us Lora Castillo MD LAB BLOOD ORDERABLES Final Re sult [facility] [address] [place] [address] * (ABNORMAL) Hemoglobin (08/21/2025) Only the most recent of2 resultswithin the time period is included. Hemoglobin 10.8(L) 13.2 - 14.0 g/dL [facility] 08/21/2025 08/20/2025 6:0 1 AM POLICE DISTRICT SWITCHBOARD OPERATOR Narrative Resulting Agency Comment Performing Organization Information: Site ID: [place] Name: Jesenia Valle Address: [address] [place] [phone] Director: Livier Rose MD us Lora Castillo MD LAB BLOOD ORDERABLES Final Re sult Performing Organization Address [facility] Co de Phone Number [facility] [address] [place] [phone] * (ABNORMAL) BUN (08/21/2025) Only the most recent of2 resultswithin the time period is included. BUN 56(H) 7 - 25 mg/dL [facility] 08/21/2025 08/20/2025 6:0 1 AM POLICE DISTRICT SWITCHBOARD OPERATOR Narrative Resulting Agency Comment Performing Organization Information: Site ID: [place] Name: Jesenia Valle Address: [address] [place] [phone] Director: Livier Rose MD us Lora Castillo MD LAB BLOOD ORDERABLES Final Re sult Performing Organization Address [facility] de Phone Number [facility] [address] [place] [phone] * Sodium (08/21/2025) Only the most recent of3 resultswithin the time period is included. Sodium 136 135 - 146 mmol/L [facility] 08/21/2025 08/20/2025 6:0 1 AM POLICE DISTRICT SWITCHBOARD OPERATOR Narrative Resulting Agency Comment Performing Organization Information: Site ID: JOHN Name: Jesenia Valle Address: [address] [place] [phone] Director: Livier Rose MD us Lora Castillo MD LAB BLOOD ORDERABLES Final Re sult Performing Organization Address [facility] Co de Phone Number [facility] [address] [place] [phone] * (ABNORMAL) Potassium (08/21/2025) Only the most recent of3 resultswithin the time period is included. Potassium 5.4(H) 3.5 - 5.3 mmol/L [facility] 08/21/2025 08/20/2025 6:0 1 AM POLICE DISTRICT SWITCHBOARD OPERATOR Narrative Resulting Agency Comment Performing Organization Information: Site ID: [place] Name: [facility] [place] Address: [address] [place] [phone] Director: Livier Rose MD Lora Castillo MD LAB BLOOD ORDERABLES Final Re sult Performing Organization Address [facility] Co de Phone Number [facility] [id number] [place] [phone] * Chloride (08/21/2025) Only the most recent of3 resultswithin the time period is included. Chloride 103 98 - 110 mmol/L [facility] 08/21/2025 08/20/2025 6:0 1 AM POLICE DISTRICT SWITCHBOARD OPERATOR Narrative Resulting Agency Comment Performing Organization Information: Site ID: JOHN Name: [facility] [place] Address: [address] [place] [phone] Director: Livier Rose MD Lora Castillo MD LAB BLOOD ORDERABLES Final Re sult Performing Organization Address City/[facility] Co de Phone Number [facility] [address] [place] [address] * CO2 (08/21/2025) Only the most recent of3 resultswithin the time period is included. Bicarbonate (CO2) 21 20 - 29 mmol/L [facility] 08/21/2025 08/20/2025 6:0 1 AM POLICE DISTRICT SWITCHBOARD OPERATOR Narrative Resulting Agency Comment Performing Organization Information: Site ID: JOHN Name: [facility] Resendiza Address: [address] [place] [phone] Director: Livier Rose MD Lora Castillo MD LAB BLOOD ORDERABLES Final Re sult Performing Organization Address [facility] Phone Number [facility] [address] [place] [phone] * (ABNORMAL) Iron and TIBC (08/07/2025) Iron, Total 73 50 - 180 mcg/dL [facility] TIBC 150(L) 250 - 425 mcg/dL (calc) [facility] Iron Saturation (TSat) 49(H) 20 - 48 % (calc) [facility] 08/07/2025 08/05/2025 9:4 1 AM POLICE DISTRICT SWITCHBOARD OPERATOR Narrative Resulting Agency Comment Performing Organization Information: Site ID: JOHN Name: Jes[facility] Resendiza Address: [address] [place] [phone] Director: Livier Rose MD Lora Castillo MD LAB BLOOD ORDERABLES Final Re sult Performing Organization Address [facility] de Phone Number [facility] [address] * (ABNORMAL) Creatinine Clearance, Normalized (08/07/2025) Creatinine [...] Comment:Result canceled by t he ancillary. BSA ([place]) CANCELED sq.m [facility] Comment:Result canceled [...] not available. 08/07/2025 08/05/2025 9:4 1 AM POLICE DISTRICT SWITCHBOARD OPERATOR Narrative Resulting Agency Comment Performing Organization Information: Site ID: [place] Name: [facility] Address: [id number] [place] [phone] Director: Livier Rose MD Lora Castillo MD LAB AXHLDOOSPN-VYLQUABFWXY-UV SOLICITED RESULTS Final Result [facility] [address] [place] [phone] * Hepatitis B Surface Ag w/Reflex Confirmation (08/07/2025) Hep B Surface Antigen NON-REACTIVE NON-REACT BEN [facility] Comment: For additional information, please refer to http://education.[employer].Trovix/faq/IUJ913 (This link is being provided for informational/ educational purposes only.) Confirmation CANCELED [facility] Comment:Result canceled by t he ancillary. 08/07/2025 08/05/2025 9:4 1 AM POLICE DISTRICT SWITCHBOARD OPERATOR Narrative Resulting Agency Comment Performing Organization Information: Site ID: JOHN Name: Jes[facility] Valle Address: [address] [place] [phone] Director: Livier Rose MD Lora Castillo MD LAB BLOOD ORDERABLES Final Re sult Performing Organization Address [facility] Co de Phone Number [facility] [address] [place] [address] * Creatinine, urine, timed (08/07/2025) Collection Interval, [...] not available. 08/07/2025 08/05/2025 9:4 1 AM POLICE DISTRICT SWITCHBOARD OPERATOR Narrative Resulting Agency Comment Performing Organization Information: Site ID: JOHN Name: Jesenia Valle Address: [address] [place] [phone] Director: Livier Rose MD us Lora Castillo MD LAB URINE ORDERABLES Final Re sult Performing Organization Address [facility] Co de Phone Number [facility] [address] [place] [address] * (ABNORMAL) Differential with WBC (08/07/2025) WBC [...] he ancillary. 08/07/2025 08/05/2025 9:4 1 AM POLICE DISTRICT SWITCHBOARD OPERATOR Narrative Resulting Agency Comment Performing Organization Information: Site ID: JOHN Name: [facility] Address: [address] [place] [phone] Director: Livier Rose MD Lora Castillo MD LAB BLOOD ORDERABLES Final Re sult Performing Organization Address [facility] Co de Phone Number [facility] [address] [place] [phone] * (ABNORMAL) Platelet count (08/07/2025) Platelets 102(L) 140 - 400 Thousand/uL [facility] 08/07/2025 08/05/2025 9:4 1 AM POLICE DISTRICT SWITCHBOARD OPERATOR Narrative Resulting Agency Comment Performing Organization Information: Site ID: JOHN Name: [facility] Address: [address] [place] [phone] Director: Livier Rose MD Lora Castillo MD LAB BLOOD ORDERABLES [facility] Performing Organization Address [facility] Phone Number [facility] [facility] [address] [place] [phone] * (ABNORMAL) CBC (08/07/2025) WBC 4.0 3.8 [...] [facility] 08/07/2025 08/05/2025 9:4 1 AM POLICE DISTRICT SWITCHBOARD OPERATOR Narrative Resulting Agency Comment Performing Organization Information: Site ID: JOHN Name: [facility] Address: [address] [place] [phone] Director: Livier Rose MD Lora Castillo MD LAB BLOOD ORDERABLES Final Re sult Performing Organization Address City/[facility]/ZIP Co de Phone Number [facility] [address] [place], [place] [address] [address] * (ABNORMAL) Phosphorus (08/07/2025) Phosphorus 5.0(H) 3.0 - 4.3 mg/dL [facility] 08/07/2025 08/05/2025 9:4 1 AM POLICE DISTRICT SWITCHBOARD OPERATOR Narrative Resulting Agency Comment Performing Organization Information: Site ID: JOHN Name: [facility] Address: [address] [place] [phone] Director: Livier Rose MD Lora Castillo MD LAB BLOOD ORDERABLES Final Re sult Performing Organization Address [facility]/ZIP Co de Phone Number [facility] [address] [place], [place] [address], [place] [address] * (ABNORMAL) Calcium (08/07/2025) Calcium 7.9(L) 8.6 - 10.0 mg/dL [facility] 08/07/2025 08/05/2025 9:4 1 AM POLICE DISTRICT SWITCHBOARD OPERATOR Narrative Resulting Agency Comment Performing Organization Information: Site ID: JOHN Name: [facility] Address: [address] [place] [phone] Director: Livier Rose MD us Lora Castillo MD LAB BLOOD ORDERABLES Final Re sult Performing Organization Address [facility] Co de Phone Number [facility] [address] [place] [address] * (ABNORMAL) Albumin (08/07/2025) Albumin 3.5(L) 3.6 - 5.1 g/dL [facility] 08/07/2025 08/05/2025 9:4 1 AM POLICE DISTRICT SWITCHBOARD OPERATOR Narrative Resulting Agency Comment Performing Organization Information: Site ID: JOHN Name: [facility] [place] Address: [address] [place] [phone] Director: Livier Rose MD us Lora Castillo MD LAB BLOOD ORDERABLES Final Re sult Performing Organization Address [facility] Co de Phone Number [facility] [address] [place] [phone] * (ABNORMAL) HEMATOLOGY (07/31/2025) Only the most recent of9 resultswithin the time period is included. Hemoglobin 9.4(L) 14.0 - 18.0 g/dL [facility] Hemoglobin x 3 28.2(L) 42.0 - 54.0 % [facility] 07/31/2025 08/01/2025 9:3 6 AM CDT Narrative [facility] - 08/01/2025 Unless otherwise specified, test(s) performed at: [facility], [address] [place], [place] [id number] BOOK STORE ASSOCIATE: Al Heard M.D. For any questions, please call customer service at FREQUENCY:OTHER Resulting Agency Comment Specimen source: Blood us Lora Castillo MD LAB BLOOD ORDERABLES Final Re sult Performing Organization Address [facility] Co de Phone Number [facility] See order comments or contact performing [...] 08/01/2025 Unless otherwise specified, test(s) performed at: [facility], [address] [place] [address] BOOK STORE ASSOCIATE: Al Heard M.D. For any questions, please call customer service at FREQUENCY:OTHER Resulting Agency Comment Specimen source: Serum us Lora Castillo MD LAB BLOOD ORDERABLES Final Re sult Performing Organization Address [facility] de Phone Number [facility] See order comments or contact performing lab Unknown, [place] * (ABNORMAL) HD KINETICS (07/03/2025) Only the most recent of2 resultswithin the time period is included. % Urea Reduction 81(H) 65 - 80 % [facility] 07/03/2025 07/05/2025 11: 23 AM CDT Narrative Resulting Agency Comment Specimen source: Plasma us Lora Castillo MD LAB BLOOD ORDERABLES Final Re sult Performing Organization Address [facility] Co de Phone Number [facility] See order comments or contact performing lab Unknown, [place] * POST CHEMISTRY (07/03/2025) Only the most recent of2 resultswithin the time period is included. BUN Post Dialysis 11 6 - 19 mg/dL [facility] 07/03/2025 07/05/2025 11: 23 AM CDT Narrative [facility] - 07/05/2025 Unless otherwise specified, test(s) performed at: [facility], [address] [place] [address] BOOK STORE ASSOCIATE: Al Heard M.D. For any questions, please call customer service at FREQUENCY:MONTHLY Resulting Agency Comment Specimen source: Plasma Lora Castillo MD LAB BLOOD ORDERABLES Final Re sult Performing Organization Address [facility] de Phone Number [facility] See order comments or contact performing lab Unknown, [place] * IMMUNO CHEMISTRY (07/03/2025) Only the most recent of2 resultswithin the time period is included. Pathologist [facility] Hep B Surface Ag Negative Negative [facility] 07/03/2025 07/04/2025 10: 55 AM CDT Narrative [facility] - 07/04/2025 Unless otherwise specified, test(s) performed at: [facility], [address] [place] [address] BOOK STORE ASSOCIATE: Al Heard M.D. For any questions, please call customer service at FREQUENCY:MONTHLY Resulting Agency Comment Specimen source: Serum us Lora Castillo MD LAB BLOOD ORDERABLES Final Re sult Performing Organization Address [facility] de Phone Number [facility] See order comments or contact performing lab Unknown, [place] * [facility] Results (07/03/2025) Only the most recent of2 resultswithin the time period is included. nPCR_HD 1.06 [facility] PCR 73.13 [facility] spKt/V Gotch 1.85 [facility] spKt/V (Daugirdas II) 1.84 [facility] WSTDKT/V 2.6 [facility] eKt/V ([place]) 1.61 [facility] eKdrt/V 1.61 [facility] eNPCR 1.00 [facility] eKt/V Gotch 1.61 [facility] [place] 07/03/2025 07/03/2025 us Abhay Ordering Provider LAB BLOOD ORDERABLES Final Result [facility] Contact Performing lab Unknown, [place] * TRACE ELEMENTS (06/05/2025) Aluminum <5 0 - 10 mcg/L [facility] Comment: This test was developed and its performance characteristics determined by [facility]. It has not been cleared or approved by the FDA. The laboratory is regulated under CLIA as qualified to perform high complexity testing. This test is used for clinical purposes. It should not be regarded as investigational or for research. 06/05/2025 06/06/2025 10: 01 AM CDT Narrative [facility] - 06/06/2025 Unless otherwise specified, test(s) performed at: [facility], [address] [place] [address] BOOK STORE ASSOCIATE: Al Heard M.D. For any questions, please call customer service at FREQUENCY:MONTHLY Resulting Agency Comment Specimen source: Serum Lora Castillo MD LAB BLOOD ORDERABLES Final Re sult [facility] See order comments or contact performing lab Unknown, [place] from Last 3 Months Insurance Medicare
--- OUTSIDE RECORDS SUMMARY | 2025-08-25 09:47 | XMS_ITS | Encounter Summary ---
Author Organization [facility] Address [address] [place] [address] Phone Care Team Providers Care Tar Heater Name Role Phone Unavailable Primary Care Provider Unavailabl e Encounter Details Date Type Department Care Team (Late st Contact Info) Description 08/21/2025 Orders Only [facility] [address] [place] [address] Lora Castillo MD [address] [place] [address] Social History Tobacco Use Types [...] [facility] 08/21/2025 08/20/2025 6:0 1 AM PREPARATION PLANT REPAIRER Narrative Resulting Agency Comment Performing Organization Information: Site ID: JOHN Name: [facility] Address: [address] [place] [phone] Director: Livier Rose MD us Lora Castillo MD LAB BLOOD ORDERABLES Final Re sult Performing Organization Address [facility] Co de Phone Number [facility] [address] [place] [address] * Post Dialysis BUN (08/21/2025) BUN Post Dialysis 13 7 - 25 mg/dL [facility] 08/21/2025 08/20/2025 6:0 1 AM PREPARATION PLANT REPAIRER Narrative Resulting Agency Comment Performing Organization Information: Site ID: JOHN Name: Jesenia Valle Address: [address] [place] [phone] Director: Livier Rose MD us Lora Castillo MD LAB BLOOD ORDERABLES Final Re sult Performing Organization Address [facility] de Phone Number [facility] [address] [place] [phone] * CO2 (08/21/2025) Bicarbonate (CO2) 21 20 - 29 mmol/L [facility] 08/21/2025 08/20/2025 6:0 1 AM PREPARATION PLANT REPAIRER Narrative Resulting Agency Comment Performing Organization Information: Site ID: JOHN Name: [facility] Address: [address] [place] [phone] Director: Livier Rose MD us Lora Castillo MD LAB BLOOD ORDERABLES Final Re sult Performing Organization Address [facility] Co de Phone Number [facility] [address] [place] [address] * Chloride (08/21/2025) Chloride 103 98 - 110 mmol/L [facility] 08/21/2025 08/20/2025 6:0 1 AM PREPARATION PLANT REPAIRER Narrative Resulting Agency Comment Performing Organization Information: Site ID: JOHN Name: Jesenia Valle Address: [address] [place] [phone] Director: Livier Rose MD Lora Castillo MD LAB BLOOD ORDERABLES Final Re sult Performing Organization Address City/[facility]/ZIP Co de Phone Number [facility] [address] [place] [phone] * Sodium (08/21/2025) Sodium 136 135 - 146 mmol/L [facility] 08/21/2025 08/20/2025 6:0 1 AM PREPARATION PLANT REPAIRER Narrative Resulting Agency Comment Performing Organization Information: Site ID: JOHN Name: Jesenia Resendiza Address: [address] [place] [phone] Director: Livier Rose MD Lora Castillo MD LAB BLOOD ORDERABLES Final Re sult Performing Organization Address City/[facility]/ZIP Co de Phone Number [facility] [address] [place] [phone] * (ABNORMAL) BUN (08/21/2025) BUN 56(H) 7 - 25 mg/dL [facility] 08/21/2025 08/20/2025 6:0 1 AM PREPARATION PLANT REPAIRER Narrative Resulting Agency Comment Performing Organization Information: Site ID: JOHN Name: Jesenia Resendiza Address: [address] [place] [phone] Director: Livier Rose MD us Lora Castillo MD LAB BLOOD ORDERABLES Final Re sult Performing Organization Address [facility]/ZIP Co de Phone Number [facility] [address] [place] [address] * (ABNORMAL) Potassium (08/21/2025) Potassium 5.4(H) 3.5 - 5.3 mmol/L [facility] 08/21/2025 08/20/2025 6:0 1 AM PREPARATION PLANT REPAIRER Narrative Resulting Agency Comment Performing Organization Information: Site ID: IN Name: Jesenia Valle Address: [place] [address] Director: Livier Rose MD Lora Castillo MD LAB BLOOD ORDERABLES Final Re sult Performing Organization Address City/[facility] Co de Phone Number [facility] [address] [place] [address] documented in this encounter Visit Diagnoses Not on filedocumented in this encounter
--- OUTSIDE RECORDS SUMMARY | 2025-08-25 09:47 | XMS_ITS | Encounter Summary ---
Author Organization [facility] Address [address] [place] [address] Care Team Providers Care Technical Marketing Engineer Name Role Phone Deanna Bansal MD Primary Care Provider +1- [phone] Encounter Details Date Type Department Care Team (Late st Contact Info) Description 08/19/2025 Orders Only [facility] Gen Spec Surg [address] [place] [address] Jas Canseco DO [address] [place] [address] Social History Tobacco Use Types [...] Pt advised they need to have a local [place] truck driver and that person must stay at the facility while pt is having surgery or the surgery will be cancelled. Pt voiced understanding to all. Pt knows surgery is pending cardiology and oncology clearance TE PLANNING [place] documented in this encounter Plan of Treatment Upcoming Encounters Date Type Department Care Team (Latest Contact Info) Description 09/12/2025 2:47 PM ESTATE PLANNING [place] Hospital Encounter [facility] Operating Room [address] [place] [phone] Jas Canseco DO [address] [address] ESRD (end stage renal disease) on dialysis ([facility]) 09/12/2025 2:47 PM ESTATE PLANNING [place] - 09/12/2025 4:04 PM ESTATE PLANNING [place] Surgery [facility] Operating Room [address] [place] [phone] Jas Canseco DO [address] [address] CATHETER PERITONEAL INSERTION LAPAROSCOPIC 09/23/2025 9:45 AM ESTATE PLANNING [place] Office Visit [facility] Gen Spec Surg [address] [address] Lyndon Alva PA [address] [address] Scheduled Procedures Name Priority Associated Diagnoses Date/Ti me CATHETER PERITONEAL INSERTION LAPAROSCOPIC ESRD (end stage renal disease) on dialysis ([facility]) 09/12/2025 2:47 PM ESTATE PLANNING [place] documented as of this encounter Goals Goal Patient Goal Type Associated Problems Recent Progress Patient-Stated? 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
--- OUTSIDE RECORDS SUMMARY | 2025-08-25 09:47 | XMS_ITS | Encounter Summary ---
Author Organization [facility] Address [address] [place] [address] Care Team Providers Care Marzipan Maker Name Role Phone Deanna Bansal MD Primary Care Provider +1- [phone] Encounter Details Date Type Department Care Team [...] (Latest Contact Info) Description 09/12/2025 2:47 PM TRACKMOBILE OPERATOR Hospital Encounter [facility] Operating Room [address] [place] [address] Jas Canseco DO [address] [address] ESRD (end stage renal disease) on dialysis ([facility]) 09/12/2025 2:47 PM TRACKMOBILE OPERATOR - 09/12/2025 4:04 PM TRACKMOBILE OPERATOR Surgery [facility] Operating Room [address] [place] [address] Jas Canseco DO [address] [address] CATHETER PERITONEAL INSERTION LAPAROSCOPIC 09/23/2025 9:45 AM TRACKMOBILE OPERATOR Office Visit [facility] Gen Spec Surg [place] [id number] [facility] [address] [place] [address] Lyndon Alva, LINDA [address] [place] [address] Scheduled Procedures Name Priority Associated Diagnoses Date/Ti me CATHETER PERITONEAL INSERTION LAPAROSCOPIC ESRD (end stage renal disease) on dialysis ([facility]) 09/12/2025 2:47 PM TRACKMOBILE OPERATOR documented as of this encounter Goals Goal Patient Goal Type Associated Problems Recent Progress Patient-Stated? Author Autogenera holly Goal Care Plan Autogenerated Problem No Carol Ernandez documented as of this encounter Visit Diagnoses Not on filedocumented in this encounter Additional Health Concerns Active Problems Noted Date Diagnosed Date Autogenerated Problem 08/19/2025 documented as of this encounter Care Teams Marzipan Maker Relationship Specialty Start Date End Date Deanna Bansal MD [address] [place] [phone] PCP - General Family Practice 03/09/22 documented as of this encounter
--- NOTE | 2025-08-25 09:50 | ECG_ITS ---
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 Measurements Intervals [place] Rate: 90 P: 29 AK: 202 QRS: -89 QRSD: 98 T: 20 QT: 365 QTc: 447 Interpretive Statements SINUS RHYTHM PATTERN CONSISTENT WITH PULMONARY DISEASE INFERIOR MYOCARDIAL INFARCTION , PROBABLY OLD [40+ ms Q WAVE AND/OR ST/T ABNORMALITY IN II/aVF] Compared to ECG 08/23/2025 12:24:22 First degree AV block no longer present Myocardial infarct finding still present Electronically Signed On 08-25-2025 17:18:45 REGISTRAR MUSEUM by Aguila Craig M.D. [email or web address]
--- NOTE | 2025-08-25 09:50 | XRR_ITS ---
PROCEDURE INFORMATION: Exam: XR Chest Exam date and time: 08/25/2025 10:00 AM Age: 85 years old Clinical indication: Shortness of breath TECHNIQUE: Imaging protocol: Radiologic exam of the chest. Views: 1 view. COMPARISON: CR XR ribs LT mn 3V w CXR1V [id number] 08/23/2025 11:25 AM FINDINGS: Tubes, catheters and devices: Stable right IJ dual-lumen central venous catheter with the tip in the right atrium. Lungs: Increasing hazy bibasilar opacities, isiv-eaniuvd-agvb-right. Pleural spaces: Suspected trace bilateral pleural effusions. Heart/Mediastinum: Stable cardiomediastinal silhouette. Vasculature: Tortuous thoracic aorta with atherosclerotic calcifications. Bones/joints: Multiple left-sided rib fractures are again noted. XR/XR chest 1V portable [id number] IMPRESSION: 1. Increasing hazy bibasilar opacities, aled-wxrjkhr-flvf-right, possibly worsening atelectasis. Superimposed infection not entirely excluded. 2. Suspected trace bilateral pleural effusions. 3. Remainder stable.
--- NOTE | 2025-08-25 09:50 | W.ED.SOB ---
HPI - SOB/Dyspnea General: Chief Complaint: Shortness of Breath/Dyspnea Stated Complaint: ams; sob Time Seen by Provider: 08/25/25 09:48 History of Present Illness: HPI Narrative: 85-year-old man with a history of [place] disease, pneumonia, constipation, multiple myeloma, GERD, anemia, end-stage renal disease on dialysis since January, recent rib fracture for which he was placed in a skilled nursing for rehabilitation until he gets strong enough to go back home who presents emergency room by ambulance from the skilled nursing with worsening shortness of breath and increased oxygen requirements. He had not been on any oxygen until this morning. He is had some cough. Continued rib pain. He said he was a bit lethargic but he answers questions appropriately here today. Related Data Home Medications ?Medication ?Instructions ?Recorded ?Confirmed albuterol sulfate 90 mcg/actuation 1 puff inhalation QID PRN 11/05/24 08/14/25 aerosol inhaler Shortness Of Breath levothyroxine 125 mcg tablet 125 mcg PO DAILY 11/05/24 08/14/25 (Levo-T) ferrous sulfate 325 mg (65 mg 325 mg PO DAILY 12/29/24 08/14/25 iron) tablet polyethylene glycol 3350 17 17 g PO DAILY PRN Constipation 12/29/24 08/14/25 gram/dose oral powder (Miralax) vit C 250 mg-vit E 90 mg-zinc 40 1 tab PO BID 12/29/24 08/14/25 mg-copper 1 [id number] capsule (PreserVision AREDS-2) famotidine 20 mg tablet (Acid 20 mg PO BID 02/06/25 08/14/25 Fleet Director (famotidine)) diphenhydramine HCl 25 mg capsule 25 mg PO TID PRN Allergic Reaction 02/09/25 08/14/25 (Benadryl) sucralfate 1 gram tablet 1 g PO BID 02/09/25 08/14/25 Previous Rx's ?Medication ?Instructions ?Recorded ondansetron 4 mg disintegrating 4 mg PO Q6H PRN nausea and 02/09/25 tablet vomiting #14 tabs cyanocobalamin (vitamin B-12) 100 1,000 mcg (10 x 100 mcg) PO DAILY 02/17/25 mcg tablet 10 days #0 tabs fludrocortisone 0.1 mg tablet 0.1 mg PO DAILY #30 tabs 02/17/25 donepezil 10 mg tablet (Aricept) 10 mg PO DAILY #30 tabs 02/27/25 midodrine 5 mg tablet 5 mg PO TID #30 tabs 02/27/25 trazodone 50 mg tablet 50 mg PO .qhs PRN insomnia #14 tabs 02/27/25 cyclophosphamide 50 mg capsule 600 mg (12 x 50 mg) PO DAILY #60 07/16/25 caps dexamethasone 4 mg tablet 40 mg (10 x 4 mg) PO ONCE #40 tabs 07/24/25 hydrocodone 5 mg-acetaminophen 325 1 tab PO Q6H PRN pain #20 tabs 08/23/25 mg tablet Allergies Allergy/AdvReac Type Severity Reaction Status Date / Time grass pollen Allergy Unknown Verified 08/25/25 09:51 house dust Allergy Unknown Verified 08/25/25 09:51 mold Allergy Unknown Verified 08/25/25 09:51 tree and shrub pollen Allergy Unknown Verified 08/25/25 09:51 Review of Systems Narrative: Constitutional symptoms: Negative except as documented in HPI. Skin symptoms: Negative except as documented in HPI. Eye symptoms: Negative except as documented in HPI. ENMT symptoms: Negative except as documented in HPI. Respiratory symptoms: Negative except as documented in HPI. Cardiovascular symptoms: Negative except as documented in HPI. Gastrointestinal symptoms: Negative except as documented in HPI. Genitourinary symptoms: Negative except as documented in HPI. Musculoskeletal symptoms: Negative except as documented in HPI. Neurologic symptoms: Negative except as documented in HPI. Psychiatric symptoms: Negative except as documented in HPI. Endocrine symptoms: Negative except as documented in HPI. 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 Skin: Warm, dry. Head: Normocephalic, atraumatic. Neck: Supple, trachea midline. Eye: Extraocular movements are intact. Ears, nose, mouth and throat: mucosa moist. Cardiovascular: Regular, Normal peripheral perfusion. Respiratory: Coarse, diminished at the bases, mild tachypnea, large oxygen requirement Gastrointestinal: Soft, Nontender, Non distended Musculoskeletal: Normal ROM, no deformity. Neurological: Alert and oriented, No focal neurological deficit observed. Psychiatric: Cooperative, appropriate mood & affect. Course Vital Signs: Vital signs: Vital Signs Temperature 97.1 F L 08/25/25 13:15 Pulse Rate 70 08/25/25 13:15 Respiratory Rate 20 H 08/25/25 13:15 Blood Pressure 119/64 08/25/25 13:15 Pulse Oximetry 94 08/25/25 13:15 Oxygen Delivery Me thod Oxymask 08/25/25 11:57 Oxygen Flow Rate 6 08/25/25 11:57 MDM - SOB/Dyspnea Medical Decision Making Medical decision making Patient's reason for coming to the emergency room: Shortness of breath, oxygen requirements Social determinants: Patient recently placed in a skilled nursing for rehabilitation after broken ribs. I reviewed the patient's medical record. 85-year-old man with a history of [place] disease, pneumonia, constipation, multiple myeloma, GERD, anemia, end-stage renal disease on dialysis since January, recent rib fracture for which he was placed in a skilled nursing for rehabilitation. I reviewed the patient's most recent oncology note. He has multiple myeloma that caused his end-stage renal dialysis. He has bony lesions of the skull bilateral humerus and femurs. He had a prostatectomy around 2000. He is on CyBorD chemotherapy. He been tolerating it well. This was 1112. Dexamethasone weekly. Cytoxan weekly. Velcade weekly. I reviewed the patient's current home meds He is on CyBorD chemotherapy. He been tolerating it well. This was 1112. Dexamethasone weekly. Cytoxan weekly. Velcade weekly. Alternate historians: None Differential diagnosis: including but not limited to and based on the above HPI, review of systems and physical exam: Orders placed to evaluate differential diagnosis based on the above differential, HPI and physical exam Chest x-ray: Increasing hazy bibasilar opacities, left greater than right, possibly worsening atelectasis. Superimposed infection not entirely excluded. This was reviewed and interpreted by myself the emergency room physician. I also reviewed the radiology report. CT of the chest without contrast: This was ordered to further evaluate abnormalities on the chest x-ray. Bilateral pleural effusions. Fluid and gas bubbles in the central mainstem bronchi and right lower lobe bronchi which may be secondary to aspiration. Bilateral lower lobe consolidation. Lytic lesion with soft tissue of the ninth rib with possible pathologic fracture. Patient does have multiple myeloma. This was reviewed and interpreted by myself the emergency room physician. I also reviewed the radiology report. EKG: Time 9:56 AM. Rate 90. Normal sinus rhythm, nonspecific ST changes, no ectopy, normal MO & QRS intervals, This was reviewed and interpreted by myself the ER physician at 10:01 AM Repeat EKG: Time 1159. Rate 73. Normal sinus rhythm, nonspecific ST changes, no ectopy, normal MO & QRS intervals, This was reviewed and interpreted by myself the ER physician at 1205. No significant changes from EKG done previously today in the emergency room. Lab Review: Laboratory results were reviewed and interpreted by myself the emergency room physician. No leukocytosis. No anemia. Platelets are low at 94. BUN and creatinine are 69 and 10.6. With a potassium of 5.9. Lactic acid is not elevated. Assessment of risk: Level of risk: High risk patient. Multiple comorbidities. He is quite sick today. Requiring a large amount of oxygen. Hospitalization considerations: Patient is being admitted to the ICU Reexamination: Patient is currently requiring 6 to 8 L oxygen. He has not been altered. Consultation: I spoke with Dr. Dr. Raza who is on-call for the hospitalist service who agrees to admission to the ICU. Consultation: I spoke with Dr. Curran who is on-call for nephrology who agrees to consult and will initiate dialysis soon Assessment and plan: Aspiration pneumonia Acute hypoxemic respiratory failure Pleural effusions End-stage renal disease on dialysis Possible sepsis ?Nephrology consulted and they will dialyze Currently requiring quite a bit of oxygen. Admit to the ICU - 500 mL normal saline bolus given. Pressure is a bit soft but he also has fluid overload and is a dialysis patient. -Broad-spectrum antibiotics were administered. Zyvox and meropenem. Possibly aspiration pneumonia -Sepsis quality measures. -Lactic acid with a reflex was ordered. -Blood cultures were ordered. ?I reevaluated the patient's volume status after sepsis fluids were given. -I discussed the patient with the hospitalist on-call who is admitting the patient. - Discussed findings and plan with patient. Answered any questions. - All laboratory values were reviewed and interpreted personally by myself, the ER physician - All imaging was reviewed and interpreted personally by myself, the ER physician. - Evaluation and treatment of this problem were appropriate in the emergency setting Critical Care: -I spent a total of 48 minutes of critical care time managing the patient, independent of any other practitioner. -The time involved in the performance of separately reportable procedures was not counted towards critical care time. Lab Data 08/25/25 09:36 08/25/25 09:36 Labs/Radiology: Radiology Impressions Chest X-Ray 08/25/25 09:50 IMPRESSION: 1. Increasing hazy bibasilar opacities, [id number]-right, possibly worsening atelectasis. Superimposed infection not entirely excluded. 2. Suspected trace bilateral pleural effusions. 3. Remainder stable. Chest CT 08/25/25 10:32 IMPRESSION: 1. Moderate bilateral pleural effusions. 2. Fluid and gas bubbles in the central mainstem bronchi and right lower lobe bronchi which could be secondary to aspiration. Bilateral lower lobe consolidation. 3. Lytic lesion with soft tissue of the left 9th rib with possible pathologic fracture. Multiple myeloma and osseous metastatic disease are in the differential. There are other acute and chronic appearing rib fractures. No segmental rib fractures. Laboratory Results WBC 4.54 10^3/uL (3.29-11.43) 08/25/25 09:36 RBC 3.22 10^6/uL (3.85-5.65) L 08/25/25 09:36 Hgb 10.10 g/dL (11.27-16.99) L 08/25/25 09:36 Hct 31.0 % (37-53) L 08/25/25 09:36 MCV 96.3 fl (82-101) 08/25/25 09:36 MCH 31.4 pg (27-33) 08/25/25 09:36 MCHC 32.6 g/dL (30-55) 08/25/25 09:36 RDW 15.5 % (12.1-15.1) H 08/25/25 09:36 Plt Count 94 10^3/cmm (157-399) L 08/25/25 09:36 MPV 12.1 fL (7.4-10.4) H 08/25/25 09:36 Neut % (Auto) 76.0 % 08/25/25 09:36 Lymph % (Auto) 11.7 % 08/25/25 09:36 [place] % (Auto) 6.2 % 08/25/25 09:36 Eos % (Auto) 4.4 % 08/25/25 09:36 Baso % (Auto) 0.2 % 08/25/25 09:36 Neut # (Auto) 3.45 10^3/uL (1.8-7.7) 08/25/25 09:36 Lymph # (Auto) 0.5 10^3/uL (0.8-4.8) L 08/25/25 09:36 [place] # (Auto) 0.3 10^3/uL (0.2-0.9) 08/25/25 09:36 Eos # (Auto) 0.2 10^3/uL (0.0-0.8) 08/25/25 09:36 Baso # (Auto) 0.0 10^3/uL (0.0-0.1) 08/25/25 09:36 Nucleated RBC % (auto) 0.4 % 08/25/25 09:36 Nucleated RBCs # 0.0 /100WBC 08/25/25 09:36 Specimen Type Arterial 08/25/25 09:53 Sample Site Radial, right 08/25/25 09:53 ABG pH 7.36 (7.35-7.45) 08/25/25 09:53 ABG pCO2 33.7 mmHg (35-45) L 08/25/25 09:53 ABG pO2 65.7 mmHg (80.0-100.0) L 08/25/25 09:53 ABG HCO3 19.2 mmol/L (22-26) L 08/25/25 09:53 ABG O2 Saturation 92.0 08/25/25 09:53 ABG Base Excess -5.5 mmol/L (-2.0-2.0) L 08/25/25 09:53 [place] Test Pos 08/25/25 09:53 A-a O2 Gradient 5.6 mmHg (5-10) 08/25/25 09:53 Hematocrit 29.8 % (42-52) L 08/25/25 09:53 Hgb O2 Saturation 89.7 % (95-100) L 08/25/25 09:53 Carboxyhemoglobin 1.2 %THgb (0.4-20.1) 08/25/25 09:53 Methemoglobin 1.3 % (0.4-1.5) 08/25/25 09:53 Total Hemoglobin 9.7 g/dL (14-18) L 08/25/25 09:53 Sodium 136.0 mmol/L (131-143) 08/25/25 09:53 Potassium 5.6 mmol/L (3.5-5.0) H 08/25/25 09:53 Glucose 81.0 mg/dL (70-115) 08/25/25 09:53 Ionized Calcium 1.1 mmol/L (1.1-1.4) 08/25/25 09:53 O2 Delivery Device Nc 08/25/25 09:53 O2 Liters/Min 7.0 % 08/25/25 09:53 Program Evaluation Consultant ID Amh 08/25/25 09:53 Sodium 138 mmol/L (136-145) 08/25/25 09:36 Potassium 5.9 mmol/L (3.5-5.1) H 08/25/25 09:36 Chloride 101 mmol/L (98-107) 08/25/25 09:36 Carbon Dioxide 21 mmol/L (22-29) L 08/25/25 09:36 Anion Gap 21.9 (5-19) H 08/25/25 09:36 BUN 69 mg/dL (8-23) H 08/25/25 09:36 Creatinine 10.6 mg/dL (0.7-1.2) H* 08/25/25 09:36 GFR Calculation Not Reportable 08/25/25 09:36 Glucose 78 mg/dL (65-115) 08/25/25 09:36 Calculated Osmolality 305 mOsm/kg (285-295) H 08/25/25 09:36 Lactic Acid 1.7 mmol/L (0.5-2.2) 08/25/25 09:36 Calcium 7.9 mg/dL (8.5-10.5) L 08/25/25 09:36 Phosphorus 4.4 mg/dL (2.5-4.5) 08/25/25 09:36 Magnesium 2.0 mg/dL (1.7-2.3) 08/25/25 09:36 Total Bilirubin 0.9 mg/dL (0.15-1.2) 08/25/25 09:36 AST 22 U/L (0-40) 08/25/25 09:36 ALT 12 U/L (0-41) 08/25/25 09:36 Alkaline Phosphatase 114 U/L (40-130) 08/25/25 09:36 Troponin T Baseline 193 ng/L (0-15) H* 08/25/25 09:36 Troponin T 120 Minute 179.1 ng/L (0-15) H 08/25/25 11:46 Delta Troponin T -13.9 ABS# (0-10) L 08/25/25 11:46 NT-Pro-B Natriuret Pep 63486 pg/mL (0-450) H 08/25/25 09:36 Total Protein 5.3 g/dL (6.6-8.7) L 08/25/25 09:36 Albumin 3.4 g/dL (3.5-5.2) L 08/25/25 09:36 Globulin 1.9 g/dL (1.3-4.6) 08/25/25 09:36 Influenza A (PCR) Negative (Negative) 08/25/25 10:03 Influenza Type B (PCR) Negative (Negative) 08/25/25 10:03 RSV (PCR) Negative (Negative) 08/25/25 10:03 SARS-CoV-2 (PCR) Negative (Negative) 08/25/25 10:03 All radiology interpretation(s) finalized by discharge Discharge Plan Discharge Patient Disposition: Admitted As Inpatient Admit Provider: Ashkan Raza Clinical Impression: Acute hypoxemic respiratory failure, Aspiration pneumonia, Pleural effusion, bilateral, End stage renal disease on dialysis, Metastasis to bone Multiple myeloma Qualifiers: Multiple myeloma remission status: not in remission Qualified Code(s): C90.00 - Multiple myeloma not having achieved remission Condition: Stable Coding Level of Care Code ED Quantitative Strategy Analyst for Venancio Downey
[2025-08-25 09:57] LABS: Hematocrit 31.0 % (37-53); Hemoglobin 10.10 g/dL (11.27-16.99); Mean Corpuscular HGB Conc 32.6 g/dL (30-55); Mean Corpuscular Hemoglobin 31.4 pg (27-33); Mean Corpuscular Volume 96.3 fl (82-101); Nucleated Red Blood Cells % 0.4 %; Platelet Count 94 10^3/cmm (157-399); Red Blood Count 3.22 10^6/uL (3.85-5.65); White Blood Count 4.54 10^3/uL (3.29-11.43)
[2025-08-25 10:04] LABS: ABG PCO2 33.7 mmHg (35-45); ABG PH Result 7.36 (7.35-7.45); Alveolar-Arterial Oxygen Gradi 5.6 mmHg (5-10); Arterial Blood Gas Hematocrit 29.8 % (42-52); Blood Gas Allen Test Pos; Blood Gas LPM 7.0 %; Blood Gas Operator Identificat AMH; Blood Gas Sample Site Radial, right; Blood Gas Sample Type Arterial; Carboxyhemoglobin 1.2 %THgb (0.4-20.1); Glucose Level-ABG 81.0 mg/dL (70-115); HCO3 ABG 19.2 mmol/L (22-26); Ionized Calcium Level - ABG 1.1 mmol/L (1.1-1.4); Methemoglobin 1.3 % (0.4-1.5); Oxygen Saturation ABG 92.0; PO2 ABG 65.7 mmHg (80.0-100.0); Potassium Level - ABG 5.6 mmol/L (3.5-5.0); Sodium Level - ABG 136.0 mmol/L (131-143)
[2025-08-25 10:25] LABS: Lactic Sepsis W/Reflex 1.7 mmol/L (0.5-2.2)
[2025-08-25 10:32] LABS: Alanine Aminotransferase 12 U/L (0-41); Albumin Level 3.4 g/dL (3.5-5.2); Alkaline Phosphatase 114 U/L (40-130); Anion Gap 21.9 (5-19); Aspartate Amino Transferase 22 U/L (0-40); Blood Urea Nitrogen 69 mg/dL (8-23); Calcium 7.9 mg/dL (8.5-10.5); Carbon Dioxide 21 mmol/L (22-29); Chloride 101 mmol/L (98-107); Globulin 1.9 g/dL (1.3-4.6); Glucose 78 mg/dL (65-115); Magnesium 2.0 mg/dL (1.7-2.3); NT Pro B Type Natriuretic Pept 21182 pg/mL (0-450); Osmolality Calculated 305 mOsm/kg (285-295); Potassium 5.9 mmol/L (3.5-5.1); Sodium 138 mmol/L (136-145); Total Protein 5.3 g/dL (6.6-8.7)
--- NOTE | 2025-08-25 10:32 | CTR_ITS ---
PROCEDURE INFORMATION: Exam: CT Chest Without Contrast; Diagnostic Exam date and time: 08/25/2025 10:57 AM Age: 85 years old Clinical indication: Abnormal findings; Abnormal radiologic exam of lung or chest; Additional info: Abnormal chest xray TECHNIQUE: Imaging protocol: Diagnostic computed tomography of the chest without contrast. Radiation optimization: All CT scans at this facility use at least one of these dose optimization techniques: automated exposure control; mA and/or kV adjustment per patient size (includes targeted exams where dose is matched to clinical indication); or iterative reconstruction. COMPARISON: CT chest wo con [id number] 02/23/2025 2:40 PM, chest radiograph 08/25/2025 RADIATION DOSE METRICS: Total DLP (mGy-cm): 559.66 FINDINGS: Tubes, catheters and devices: Central line terminates in the cavoatrial junction. Lungs: Fluid and gas bubbles are seen in bilateral mainstem bronchi posteriorly with extension into right lower lobe bronchi on the right. This may be due to aspiration. Bilateral lower lobe consolidation/compressive atelectasis. Mild atelectasis in the posterior aspect of the right middle lobe and lingula. Pleural spaces: Moderate bilateral pleural effusions. Heart: Unremarkable. No cardiomegaly. No pericardial effusion. Coronary arteries: Moderate coronary calcifications. Esophagus: Slight dilatation of the distal esophagus with possible small hiatal hernia. Lymph nodes: Unremarkable. No enlarged lymph nodes. Vasculature: Unremarkable. No aortic aneurysm. Gallbladder and biliary ducts: Status post cholecystectomy. Kidneys: The kidneys appears somewhat small and atrophic, more so on the right. Bones/joints: Left 9th, 8th, 7th, 6th, and 5th rib fractures posteriorly appear to be acute and nondisplaced. There are some old rib fractures as well bilaterally. In the posteromedial aspect of the left 9th rib there is suggestion of a focal lytic lesion with soft tissue component measuring 1.6 x 1.1 cm with possible pathologic fracture. Soft tissues: Unremarkable. CT/CT chest wo con [id number] IMPRESSION: 1. Moderate bilateral pleural effusions. 2. Fluid and gas bubbles in the central mainstem bronchi and right lower lobe bronchi which could be secondary to aspiration. Bilateral lower lobe consolidation. 3. Lytic lesion with soft tissue of the left 9th rib with possible pathologic fracture. Multiple myeloma and osseous metastatic disease are in the differential. There are other acute and chronic appearing rib fractures. No segmental rib fractures.
[2025-08-25 10:34] LABS: Troponin(5th) Baseline 193 ng/L (0-15)
[2025-08-25 10:49] LABS: Respiratory Syncytial Virus Ce NEGATIVE (Negative); SARS-CoV-2 PCR NEGATIVE (Negative)
--- NOTE | 2025-08-25 11:59 | ECG_ITS ---
[facility] Date: 2025-[facility]25 Pat Name: Manuel Parsons Department: Room: ICU07 Gender: Male Medical Orderly: : 1940 Requested By: Mitra Triplett Order Number: [id number] Leah MD: Aguila Craig M.D. Measurements Intervals Julian Rate: 73 P: 35 NE: 225 QRS: -62 QRSD: 96 T: 36 QT: 411 QTc: 454 Interpretive Statements SINUS RHYTHM WITH FIRST DEGREE AV BLOCK PATTERN CONSISTENT WITH PULMONARY DISEASE INFERIOR MYOCARDIAL INFARCTION , PROBABLY OLD [40+ ms Q WAVE AND/OR ST/T ABNORMALITY IN II/aVF] Compared to ECG 08/25/2025 09:56:24 First degree AV block now present Myocardial infarct finding still present Electronically Signed On 08-25-2025 17:34:32 [employer] by Aguila Craig M.D. [email or web address]
[2025-08-25] MEDS: linezolid premix 600 MG/300 ML PREMIX 300 MG IV (12:41)
--- NOTE | 2025-08-25 12:43 | P.HP_ITS ---
Providers/Chief Complaint 2 Admitting Physician: Ashkan Raza MD Primary Care Provider: Cristian Roman MD Chief Complaint: Low oxygen level at the prison History of Present Illness Manuel Parsons is a 85 year old male who was brought to the ER this morning from the prison where he is with complaint/report of low oxygen level. Patient reports that he was feeling foggy this morning, but not able to remember a lot of stuff. He endorses being short of breath, and some cough. He denies any fever. On getting to the ER, he was found to be severely hypoxic, with oxygen saturation in the 80s. He was putting up to 8 L/min of oxygen by nasal cannula, which was able to bring his oxygen saturation above 90. Imaging studies, including CT of the chest, revealed some apparent bronchial plugging + pleural effusion. Patient noted to have aspiration pneumonia, and therefore recommended for admission for further evaluation. 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 He is dialysis due for today, which he has not yet had. Otherwise, he denies any chest pain, headache, dizziness, or any other systemic symptoms. Prior to getting to the ICU, to where he is admitted, he reports having had some he got some IV fluid over 40 bolus, plus antibiotics in the ER. In addition, 4 days ago, patient reports had a fall at the prison, during which he suffered some fracture of the rib on the left side. Then, he was discharged home on pain control. Review of Systems 2 Narrative: General: Negative for fever, headaches, dizziness or weakness. GI: Negative for nausea, vomiting, or diarrhea/constipation. UGS: Negative for dysuria, urgency or increased urinary frequency. All other systems reviewed, and essentially negative, except as in the HPI. Medications/Allergies Home Medications ?Medication ?Instructions ?Recorded ?Confirmed ?Last Taken ?Type albuterol sulfate 90 mcg/actuation 1 puff inhalation Q ID PRN 11/05/24 08/14/25 Unknown History aerosol inhaler Shortness Of Breath levothyroxine 125 mcg tablet 125 mcg PO DAILY 11/05/24 08/14/25 02/23/25 History (Levo-T) ferrous sulfate 325 mg (65 mg 325 mg PO DAILY 12/29/24 08/14/25 02/23/25 History iron) tablet polyethylene glycol 3350 17 17 g PO DAILY PRN Constipa tion 12/29/24 08/14/25 Unknown History gram/dose oral powder (Miralax) vit C 250 mg-vit E 90 mg-zinc 40 1 tab PO BID 12/29/24 08/14/25 02/23/25 History mg-copper 1 [id number] capsule (PreserVision AREDS-2) famotidine 20 mg tablet (Acid 20 mg PO BID 02/06/2502/23/25 History 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 (famotidine)) diphenhydramine HCl 25 mg capsule 25 mg PO TID PRN All ergic Reaction 02/09/25 08/14/25 Unknown History (Benadryl) ondansetron 4 mg disintegrating 4 mg PO Q6H PRN nausea and 02/09/25 08/14/25 Unknown Rx tablet vomiting #14 tabs sucralfate 1 gram tablet 1 g PO BID 02/09/25 08/14/25 02/08/25 History cyanocobalamin (vitamin B-12) 100 1,000 mcg (10 x 100 mcg) PO DAILY 02/17/25 08/25/25 08/25/25 06:45 Rx mcg tablet 10 days #0 tabs fludrocortisone 0.1 mg tablet 0.1 mg PO DAILY #30 tabs 02/17/25 08/14/25 02/23/25 Rx donepezil 10 mg tablet (Aricept) 10 mg PO DAILY #30 ta bs 02/27/25 08/14/25 Unknown Rx midodrine 5 mg tablet 5 mg PO TID #30 tabs 5 08/14/25 Unknown Rx trazodone 50 mg tablet 50 mg PO .qhs PRN insomnia # 14 tabs 02/27/25 08/14/25 Unknown Rx cyclophosphamide 50 mg capsule 600 mg (12 x 50 mg) PO DAILY #60 07/16/25 08/14/25 Unknown Rx caps dexamethasone 4 mg tablet 40 mg (10 x 4 mg) PO ONCE #4 0 tabs 07/24/25 08/14/25 Unknown Rx hydrocodone 5 mg-acetaminophen 325 1 tab PO Q6H PRN pa in #20 tabs 08/23/25 Unknown Rx mg tablet Allergies Allergy/AdvReac Type Severity Reaction Status Date / Time grass pollen Allergy Unknown Verified 08/25/25 09:51 house dust Allergy Unknown Verified 08/25/25 09:51 mold Allergy Unknown Verified 08/25/25 09:51 tree and shrub pollen Allergy Unknown Verified 08/25/25 09:51 PFSH Acute 2 PFSH: Medical History Gram-negative bacteremia Hood disease Pneumonia Chronic idiopathic constipation 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 Multiple myeloma GERD (gastroesophageal reflux disease) Anemia History of colon polyps Hx of echocardiogram 03/22/2024 Surgical History History of esophagogastroduodenoscopy (EGD) History of colonoscopy Hx laparoscopic cholecystectomy 06/07/2013 Hx of prostatectomy Social History Smoking and tobacco/nicotine status: never used tobacco/nicotine Alcohol intake: never Substance/Drug Use: never Household members: spouse Vitals/I&O/Wt Last Vital Signs Temp 98.2 F 08/25/25 09:42 Pulse 67 08/25/25 11:57 Resp 22 H 08/25/25 11:57 BP 130/57 08/25/25 11:57 Pulse Ox 98 08/25/25 11:57 O2 Del Method Oxymask 08/25/25 11:57 O2 Flow Rate 6 08/25/25 11:57 08/24/25 08/25/25 08/25/25 22:59 06:59 14:59 Intake Total 250 / 250 Balance 250 / 250 Weight last 48 hrs Weight 90.718 kg Physical Exam 2 Narrative: General: Mildly drowsy looking patient. Seated up in bed. No obvious respiratory distress at rest. Oxygen face mask in place. Neuro/Psych: Cranial nerves II to XII grossly intact. Chest: Chest compression tenderness noted. Resp: Very poor inspiratory effort due to pain. Otherwise breath sounds decreased/absent in the bases bilaterally. CVS: Tachycardic. Regular heart rate and rhythm. No obvious murmurs appreciated. GI: Soft and non-tender abdomen. No obvious organomegaly. Extremities: Bilateral equal pulses. No obvious pitting pedal edema. Skin: No obvious skin rashes or significant lesions. Moist mucous membranes. MSK: No obvious joint effusions or bony deformities noted. No apparent muscle tenderness. Data 08/25/25 09:36 08/25/25 09:36 Micro: Microbiology 08/25/25 10:12 Blood Culture - Preliminary Blood SPECIMEN COLLECTED 08/25/25 10:11 Blood Culture - Preliminary Blood SPECIMEN COLLECTED CXR: Radiologist's impression: Increasing hazy bibasilar opacities, [id number], possibly worsening atelectasis. Superimposed infection not entirely excluded. Suspected trace bilateral pleural effusions. CT Chest: Radiologist's impression: 1. Moderate bilateral pleural effusions. 2. Fluid and gas bubbles in the central mainstem bronchi and right lower lobe bronchi which could be secondary to aspiration. Bilateral lower lobe consolidation. 3. Lytic lesion with soft tissue of the left 9th rib with possible pathologic fracture. Multiple myeloma and osseous metastatic disease are in the differential. There are other acute and chronic appearing rib fractures. No segmental rib fractures. ABG Interpretation 1: 08/25/25 09:53 ABG pH 7.36 ABG pCO2 33.7 L ABG pO2 65.7 L ABG HCO3 19.2 L ABG O2 Saturation 92.0 ABG Base Excess -5.5 L My Interpretation: Normal acid level, though on the low side, with apparent hypoxia with low pCO2 due to apparent hyperventilation. A&P Assessment and plan 1. Pleural effusion, bilateral: 2. Aspiration pneumonia: 3. Acute hypoxemic respiratory failure: 4. End stage renal disease on dialysis: 5. Closed rib fracture: Plan: Admitted to ICU; fine with me. Monitor closely on telemetry. Continue on O2 supplementation, and wean up as tolerated. Respiratory therapy to evaluate and treat. Consult nephrology for possible dialysis today. Aggressive control of pain, so the patient can breathe deeply, and decrease chance of atelectasis. Continue patient on IV Zosyn for the aspiration pneumonia. Continue therapeutic thoracentesis if pleural effusion persist. Treat other symptoms empirically. Further plans to be adjusted last week patient efforts. PDMP PDMP Reviewed: Not Reviewed Attestations 2 Medical Necessity Statement*: Patient admitted for apparent severe clinical condition, as outlined in the Assessment & Plan section above. Patient will need up to 2 midnight stay, estimated, at least, to adequately and appropriately treat and optimally control above-named clinical conditions. Coding Level of Care Code 11724 Diagnoses Pleural effusion, bilateral J90 Aspiration pneumonia J69.0 Acute hypoxemic respiratory failure J96.01 End stage renal disease on dialysis N18.6; Z99.2 Closed rib fracture S22.39XA
[2025-08-25] MEDS: piperacillin-tazobactam 2.25 GM in sodium chloride 0.9% (plus) 50 ML IV (13:03)
--- NOTE | 2025-08-25 13:44 | PC.NURSE ---
recieved to icu 7 awake and alert resp even and nonlaborded on o2 at 6l oxymask at this time lungs with decreased breath sound crackles noted has dialysis cath in right upper chest area for treatment today, iv site left arm antibiotics started as ordered , family at bedside verified silver tone watch left wrist area and also glasses for belongings . noted several random areas skin tears,,,according to pt where he scratches because he itches alot
[2025-08-25 14:24] LABS: Hepatitis B Surface Antigen Non-Reactive (Nonreactive)
--- NOTE | 2025-08-25 14:26 | PC.PHAR ---
Patient's medlist from [facility] states patient received TuberculinPPD Solution Dose on 08/24/25 21:27.
--- NOTE | 2025-08-25 14:45 | P.PN_ITS ---
Subjective 2 Subjective: extubated and on 4l O2 Medications: Reviewed: Yes Vitals/I&O/Wt Last Vital Signs Temp 97.1 F L 08/25/25 13:15 Pulse 60 08/25/25 14:05 Resp 21 H 08/25/25 14:00 BP 100/64 08/25/25 14:00 Pulse Ox 99 08/25/25 14:00 O2 Del Method Oxymask 08/25/25 12:30 O2 Flow Rate 6 08/25/25 11:57 08/24/25 08/25/25 08/25/25 22:59 06:59 14:59 Intake Total 850 / 850 Balance 850 / 850 Weight last 48 hrs Weight 92.5 kg Weight 90.718 kg Physical Exam 2 Narrative: Elderly man in bed, awake, alert, no apparent respiratory distress. Vital signs noted saturating 96 percent on room air. HEENT normocephalic atraumatic. Neck is supple Lungs good air movement bilaterally Heart regular positive S1-S2 Abdomen positive bowel sounds. Extremities no leg edema. Anterior chest wall permacath. Data 08/25/25 09:36 08/25/25 09:36 Micro: Microbiology 08/25/25 10:12 Blood Culture - Preliminary Blood SPECIMEN COLLECTED 08/25/25 10:11 Blood Culture - Preliminary Blood SPECIMEN COLLECTED A&P Assessment and plan 1. End stage renal disease on dialysis: 2. ESRD (end stage renal disease): Plan: 1. End-stage renal disease: On MWF schedule,missed HD, Hd today 2. Hyperkalemia , HD as above and low K diet 3. Known history of adrenal insufficiency, takes hydrocortisone and fludrocortisone 4. Acute on chronic resp failure - marika pleural effusions , pulm edema , HD as above 5. Anemia: monitor 6. H/o Patient evaluated using audiovisual cart. Time spent 40 minutes. PDMP PDMP Reviewed: Not Reviewed Coding Level of Care Code Acute Code for Chg Fwd Diagnoses End stage renal disease on dialysis N18.6; Z99.2 ESRD (end stage renal disease) N18.6
--- NOTE | 2025-08-25 15:06 | PM.CONSULT ---
Providers/Reason For Consult Consulting Physician/Specialty*: kommana/Nephology Reason for Consult*: ESRD Attending Physician: Ashkan Raza MD Primary Care Provider: Cristian Roman MD History of Present Illness History of Present Illness Manuel Parsons is a 85 year old male 85-year-old male with past medical history of multiple myeloma, prostate cancer, bony metastasis, hypothyroidism, was sent to the long-term due to hypoxia. Further workup in the emergency department has showed patient has aspiration pneumonia, bilateral pleural effusions and pulmonary edema. Patient is currently undergoing dialysis treatment. Lab data significant for potassium of 5.9 hemoglobin was 10. Review of Systems Narrative: negative Medications/Allergies Home Medications ?Medication ?Instructions ?Recorded ?Confirmed ?Last Taken ?Type albuterol sulfate 90 mcg/actuation 1 puff inhalation QID PRN 11/05/24 08/25/25 Unknown History aerosol inhaler Shortness Of Breath levothyroxine 125 mcg tablet 125 mcg PO DAILY 11/05/24 08/25/25 08/25/25 04:40 History (Levo-T) ferrous sulfate 325 mg (65 mg 325 mg PO DAILY 12/29/24 08/25/25 08/25/25 06:45 History iron) tablet polyethylene glycol 3350 17 17 g PO DAILY PRN Constipation 12/29/24 08/25/25 Unknown History gram/dose oral powder (Miralax) vit C 250 mg-vit E 90 mg-zinc 40 1 tab PO BID 12/29/24 08/25/25 02/23/25 History mg-copper 1 [id number] capsule (PreserVision AREDS-2) famotidine 20 mg tablet (Acid 20 mg PO BID 02/06/25 08/25/25 08/25/25 06:45 History 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 (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)) diphenhydramine HCl 25 mg capsule 25 mg PO TID PRN Allergic Reaction 02/09/25 08/25/25 Unknown History (Benadryl) ondansetron 4 mg disintegrating 4 mg PO Q6H PRN nausea and 02/09/25 08/25/25 Unknown Rx tablet vomiting #14 tabs sucralfate 1 gram tablet 1 g PO BID 02/09/25 08/25/25 08/25/25 06:45 History cyanocobalamin (vitamin B-12) 100 1,000 mcg (10 x 100 mcg) PO DAILY 02/17/25 08/25/25 08/25/25 06:45 Rx mcg tablet 10 days #0 tabs fludrocortisone 0.1 mg tablet 0.1 mg PO DAILY #30 tabs 02/17/25 08/25/25 08/25/25 06:45 Rx donepezil 10 mg tablet (Aricept) 10 mg PO DAILY #30 tabs 02/27/25 08/25/25 08/25/25 06:45 Rx midodrine 5 mg tablet 5 mg PO TID #30 tabs 02/27/25 08/25/25 08/24/25 06:55 Rx trazodone 50 mg tablet 50 mg PO .qhs PRN insomnia #14 tabs 02/27/25 08/25/25 Unknown Rx hydrocodone 5 mg-acetaminophen 325 1 tab PO Q6H PRN pain #20 tabs 08/23/25 08/25/25 08/24/25 16:10 Rx mg tablet acetaminophen 325 mg tablet 650 mg PO QID PRN Fever Or Pain 08/25/25 08/25/25 Unknown History (Tylenol) bisacodyl 10 mg rectal suppository 10 mg MI DAILY PRN Constipation 08/25/25 08/25/25 Unknown History hydrocortisone 10 mg tablet 0.5 mg PO TID 08/25/25 08/25/25 08/25/25 06:45 History magnesium hydroxide 400 mg/5 mL 30 ml PO DAILY PRN Constipation 08/25/25 08/25/25 Unknown History oral suspension (Milk of Magnesia) sodium phosphates 19 gram-7 118 ml MI DAILY 08/25/25 08/25/25 Unknown History gram/118 mL enema (Fleet Enema) Allergies Allergy/AdvReac Type Severity Reaction Status Date / Time grass pollen Allergy Unknown Verified 08/25/25 09:51 house dust Allergy Unknown Verified 08/25/25 09:51 mold Allergy Unknown Verified 08/25/25 09:51 tree and shrub pollen Allergy Unknown Verified 08/25/25 09:51 PFSH Acute PFSH: Medical History Gram-negative bacteremia [place] disease Pneumonia Chronic idiopathic constipation 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 Multiple myeloma GERD (gastroesophageal reflux disease) Anemia History of colon polyps Hx of echocardiogram 03/22/2024 Surgical History History of esophagogastroduodenoscopy (EGD) History of colonoscopy Hx laparoscopic cholecystectomy 06/07/2013 Hx of prostatectomy Social History Smoking and tobacco/nicotine status: never used tobacco/nicotine Alcohol intake: never Substance/Drug Use: never Household members: spouse Vitals/I&O/Wt Last Vital Signs Temp 97.2 F L 08/25/25 14:52 Pulse 73 08/25/25 14:52 Resp 21 H 08/25/25 14:52 BP 116/63 08/25/25 14:52 Pulse Ox 97 08/25/25 14:30 O2 Del Method Oxymask 08/25/25 14:30 O2 Flow Rate 4 08/25/25 14:30 08/25/25 08/25/25 08/25/25 06:59 14:59 22:59 Intake Total 850 / 850 Balance 850 / 850 Weight last 48 hrs Weight 92.5 kg Weight 90.718 kg Physical Exam Narrative: awake ,a lert , no distres No jvd PEERLA S1S2 RRR Lungs with decreased BS Abd , soft , non tender Ext - no edema no rash Data 08/25/25 09:36 08/25/25 09:36 Micro: Microbiology 08/25/25 10:12 Blood Culture - Preliminary Blood SPECIMEN COLLECTED 08/25/25 10:11 Blood Culture - Preliminary Blood SPECIMEN COLLECTED A&P Assessment and plan 1. End stage renal disease on dialysis: 1. End-stage renal disease: On MWF schedule, HD today due to hyperkalemia and volume overload 2. Acute respiratory failure due to volume brian L, pneumonia, bilateral effusions and pulmonary edema, HD as above 3. Hyperkalemia: HD as above and low potassium diet 4. History of multiple myeloma with bone mets 5. Anemia: Hemoglobin 10.10, monitor Patient evaluated using audiovisual cart. Time spent 40-minute PDMP PDMP Reviewed: Not Reviewed Coding Level of Care Code Acute Code for Chg Fwd Diagnoses End stage renal disease on dialysis N18.6; Z99.2
--- NOTE | 2025-08-25 15:28 | ECG_ITS ---
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 Measurements Intervals [place] Rate: 73 P: -25 ND: 164 QRS: -64 QRSD: 102 T: 13 QT: 431 QTc: 478 Interpretive Statements SINUS RHYTHM WITH OCCASIONAL VENTRICULAR PREMATURE COMPLEXES LEFT ANTERIOR FASCICULAR BLOCK [QRS AXIS <= -45, QR IN I, RS IN II] Compared to ECG 08/25/2025 11:59:44 Ventricular premature complex(es) now present Left anterior fascicular block now present First degree AV block no longer present Myocardial infarct finding no longer present Electronically Signed On 08-25-2025 17:32:46 PATIENT PARTNER by Aguila Craig M.D. [email or web address]
[2025-08-25 15:35] LABS: Troponin 5 6HR 188.5 ng/L (0-15); Troponin 5 6HR Delta -4.5 ng/L (0-12)
[2025-08-25] MEDS: norepinephrine 4 MG/250 ML BAG 15 MG IV (15:36)
--- NOTE | 2025-08-25 16:03 | PC.NURSE ---
dialysis in progress noted blood pressure dropped , levophed gtt started
[2025-08-25] MEDS: HYDROcodone-acetaminophen 5-325 mg Tablet 1 TAB PO (20:27)
[2025-08-26] VITALS (99 sets, daily range): BP systolic 68–162; BP diastolic 35–85; PULSE 55–123; RESP 4–46; TEMP 36.7–38.3; O2SAT 89–100
[2025-08-26] MEDS: piperacillin-tazobactam 2.25 GM in sodium chloride 0.9% (plus) 50 ML IV ×2 (00:44→15:33)
[2025-08-26 04:17] LABS: Hematocrit 28.1 % (37-53); Hemoglobin 9.00 g/dL (11.27-16.99); Mean Corpuscular HGB Conc 32.0 g/dL (30-55); Mean Corpuscular Hemoglobin 31.4 pg (27-33); Mean Corpuscular Volume 97.9 fl (82-101); Nucleated Red Blood Cells % 0 %; Platelet Count 74 10^3/cmm (157-399); Red Blood Count 2.87 10^6/uL (3.85-5.65); White Blood Count 5.03 10^3/uL (3.29-11.43)
[2025-08-26 04:42] LABS: Anion Gap 15.5 (5-19); Blood Urea Nitrogen 42 mg/dL (8-23); Calcium 8.4 mg/dL (8.5-10.5); Carbon Dioxide 27 mmol/L (22-29); Chloride 101 mmol/L (98-107); Glucose 107 mg/dL (65-115); Magnesium 2.1 mg/dL (1.7-2.3); Osmolality Calculated 297 mOsm/kg (285-295); Potassium 5.5 mmol/L (3.5-5.1); Sodium 138 mmol/L (136-145)
--- NOTE | 2025-08-26 09:08 | PM.PN ---
Subjective Subjective: feels better s/p HD yesterday Medications: Reviewed: Yes Vitals/I&O/Wt Last Vital Signs Temp 98.2 F 08/26/25 06:00 Pulse 83 08/26/25 08:00 Resp 22 H 08/26/25 08:15 BP 111/81 08/26/25 08:15 Pulse Ox 94 08/26/25 08:15 O2 Del Method Oxymask 08/26/25 07:35 O2 Flow Rate 3 08/26/25 07:35 08/25/25 08/26/25 08/26/25 22:59 06:59 14:59 Intake Total 665.875 / 1515.875 290 / 1805.875 Output Total 3500 / 3500 Balance -2834.125 / -1984.125 290 / -1694.125 Weight last 48 hrs Weight 90.1 kg Weight 90 kg Weight 92.5 kg Weight 90.718 kg Physical Exam Narrative: awake ,a lert , no distres No jvd PEERLA S1S2 RRR Lungs with decreased BS Abd , soft , non tender Ext - no edema no rash Data 08/26/25 03:57 08/26/25 03:57 Micro: Microbiology 08/25/25 10:11 Blood Culture - Preliminary Blood 08/25/25 10:12 Blood Culture - Preliminary Blood SPECIMEN COLLECTED A&P Assessment and plan 1. End stage renal disease on dialysis: 1. End-stage renal disease: On MWF schedule, s/p HD yesterday due to hyperkalemia and volume overload, HD again today fr persistent hyperkalemia 2. Acute respiratory failure due to volume overload , pneumonia, bilateral effusions and pulmonary edema, HD as above 3. Hyperkalemia: K elevated, place on low K diet . 4. History of multiple myeloma with bone mets 5. Anemia: Hemoglobin 10.10, monitor Patient evaluated using audiovisual cart. Time spent 40-minute PDMP PDMP Reviewed: Not Reviewed Attestations Medical Necessity Statement*: per [facility] Coding Level of Care Code Acute Code for Chg Fwd Diagnoses End stage renal disease on dialysis N18.6; Z99.2
[2025-08-26] MEDS: albumin 25 G/100 ML BAG 60 G IV ×2 (10:41→17:15)
--- NOTE | 2025-08-26 10:41 | PHA.VACGOAL ---
Vancomycin Goal - Goal Vancomycin Goal:: 15-20 mg/L Vancomycin Indication:: Pneumonia - Therapy Day of therpy:: Day []of [] . Actual body weight (kg): 198 lb 10.184 oz - Data Labs: WBC 5.03 10^3/uL (3.29-11.43) 08/26/25 03:57 RBC 2.87 10^6/uL (3.85-5.65) L 08/26/25 03:57 Hgb 9.00 g/dL (11.27-16.99) L 08/26/25 03:57 Hct 28.1 % (37-53) L 08/26/25 03:57 MCV 97.9 fl (82-101) 08/26/25 03:57 MCH 31.4 pg (27-33) 08/26/25 03:57 MCHC 32.0 g/dL (30-55) 08/26/25 03:57 RDW 15.8 % (12.1-15.1) H 08/26/25 03:57 Sodium 138 mmol/L (136-145) 08/26/25 03:57 Potassium 5.5 mmol/L (3.5-5.1) H 08/26/25 03:57 Chloride 101 mmol/L (98-107) 08/26/25 03:57 Carbon Dioxide 27 mmol/L (22-29) 08/26/25 03:57 Anion Gap 15.5 (5-19) 08/26/25 03:57 BUN 42 mg/dL (8-23) H 08/26/25 03:57 Creatinine 7.4 mg/dL (0.7-1.2) H* 08/26/25 03:57 GFR Calculation Not Reportable 08/26/25 03:57 Treatment plan:: new consult Regimen:: MWF TUESDAY DIALYSIS NURSE INFORMED PHARMACY THAT SHE WAS UNABLE TO GIVE DOSE PRIOR TO DIALYSIS STARTING FIRST DOSE RETIMED FOR AFTER UNRULY AFTER DIALYSIS
--- NOTE | 2025-08-26 10:49 | PC.NURSE ---
Call from pharmacy regaurding vanco dose to be given delayed, also patient with soft bp needing blood consent and albumin to infuse neema for dialysis to be started within the hour. Vanco held at this time as only one iv access and impending dialysis - Pharmacy states will re time for after dialysis.
[2025-08-26] MEDS: heparin, porcine 1,000 unit/mL INJ 10 mL 1000 UNIT IV (11:35)
[2025-08-26 11:39] LABS: Lactic Sepsis W/Reflex 2.2 mmol/L (0.5-2.2)
[2025-08-26 13:02] LABS: Reflex Lactate Order REFLEX LACTIC ORDERD
[2025-08-26 14:59] LABS: Lactic Acid level (Lactate) 1.4 mmol/L (0.5-2.2)
--- NOTE | 2025-08-26 15:48 | P.PN_ITS ---
Subjective 2 Subjective: - Patient was seen this morning - He is alert oriented x 3, following al l commands - Does report generalized weakness, fati sarina - Denies any choking sensation, does hav e a cough, no globus sensation - He does complain of left rib pain - Does report sacral pain, from his fall with history of pubic rami fracture - Denies any recurrent falls - He tells me he does not want to go [facility] to the skilled nursing that he wants to go back home - He tells me that he has neighbors that can help take care of him - His cannot lift him but can help take care of him - He tells me that it is too painful to move, - He is worried about his pain when part icipating with physical therapy -He tells me that he really does not wan t to move, he wants to stay bedbound, he is in a lot of pain, he does not feel very motivated to move, he tells me that that has been the case since he has been at the skilled nursing - Denies any chest pain, does report pop rtness of breath - Does have a cough, no abdominal pain - We discussed his overall goals of care , for now wants to remain a full code -Discussed patient's sepsis, septic shoc k secondary to pneumonia, aspiration pneumonia, with respiratory failure, with his underlying and stage renal disease on dialysis with his underlying multiple myeloma, he voiced understanding, all questions answered - In the afternoon after having his dinn er, patient had episode of tachycardia, hypotension, desaturations of his O2 sat, requiring up to 7 Levophed - Patient was seen, [facility] - Discussed with with family and Manuel - Patient is hospitalization of acute hy poxic respiratory failure secondary to aspiration pneumonia now with septic shock and sepsis - Discussed morbidity and mortality of h is underlying condition with his underlying multiple myeloma, his prostate cancer, his CKD, his bony metastasis, his recent deconditioning, with his underlying adrenal insufficiency - We discussed central line placement, Jose francois does not want to have a central line placed, discussed morbidity and mortality, he voiced understanding, all questions answered, declined for now - We again had a discussion about his go als of care, he tells me he wants to remain a full code for now, but he is going to talk to his family and they are going to have a family meeting - Discussed with Manuel and his family at bedside that currently his condition is critical, - My worry is is that his condition will worsen overnight, potentially requiring intubation, and aggressive interventions, CPR - Given his current condition and his un derlying risk factors, this carries significant morbidity and mortality, high risk of prolonged intubation, high risk of tracheostomy, higher risk of remaining on life support for a different period of time - Patient family and family voiced under standing, all questions answered Vitals/I&O/Wt Last Vital Signs Temp 98.2 F 08/26/25 11:46 Pulse 108 H 08/26/25 14:00 Resp 21 H 08/26/25 14:00 BP 83/60 08/26/25 14:00 Pulse Ox 91 08/26/25 14:00 O2 Del Method Nasal Cannula 08/26/25 08:45 O2 Flow Rate 2.5 08/26/25 08:45 08/26/25 08/26/25 08/26/25 06:59 14:59 22:59 Intake Total 290 / 1805.875 350 / 350 Output Total 0 / 0 Balance 290 / -1694.125 350 / 350 Weight last 48 hrs Weight 90.1 kg Weight 90 kg Weight 92.5 kg Weight 90.718 kg Physical Exam 2 Const: COMMON NORMALS: no acute distress and patient oriented x3 O RIENTATION/CONSCIOUSNESS: Yes awake, Yes oriented to person, Yes oriented to place and Yes oriented to time OTHER: Ill-appearing Resp: COMMON NORMALS: normal respiratory effort, No retractions and No use of accessory muscles AUSCULTATION: crackles and wheezes Cardio: COMMON NORMALS: regular rate, regular rhythm, S1 normal heart sound present and S2 normal heart sound present RATE: regular rate RHYTHM: r egular rhythm HEART SOUNDS: S1 normal heart sound present and S2 normal heart sound present GI: COMMON NORMALS: Normal to inspection, nondistended, normoactive bowel sounds present and non-tender Extremity: COMMON NORMALS: no pedal edema Neuro: COMMON NORMALS: patient oriented x3 SENSORIUM/ORIENTATION: Yes oriented to person, Yes oriented to place and Yes oriented to time Skin: COMMON NORMALS: turgor normal GENERAL SKIN EXAM: turgor normal Quick SOFA Score: Respiratory Rate: 46 Blood Pressure: 108/45 [place] Coma Scale: 15 qSOFA Score: 1 If qSOFA score 2 or greater, continue: Blood Pressure Mean: 66 Bilirubin (mg/dl): 0.9 Platelets (x10?/ml): 74 Creatinine (mg/dl): 7.4 Evaluation: Current stage of sepsis: sepsis Sepsis stage criteria used: [facility] Sep-1 and Sepsis-3 Crystalloid fluids: less than 30 mL/kg crystalloid fluids ordered (Due to CHF) Blood cultures ordered: Yes Possible source: p ulmonary Focused Exam: Vital signs: Temp Pulse Resp BP Pulse Ox O2 Del Method O2 Flow Rate 08/26/25 15:53 115 H 46 H 108/45 89 L 08/26/25 15:52 113 H 32 H 108/45 89 L 08/26/25 15:51 113 H 38 H 108/45 89 L 08/26/25 15:50 114 H 31 H 96/66 89 L 08/26/25 15:49 115 H 38 H 68/43 89 L 5 08/26/25 15:47 115 H 23 H 78/35 90 08/26/25 15:46 112 H 28 H 83/42 90 08/26/25 15:45 101.0 F H 112 H 30 H 83/42 08/26/25 15:30 116 H 25 H 86/56 89 L Nasal Cannula 4 08/26/25 15:15 123 H 27 H 81/61 90 08/26/25 15:00 113 H 17 111/72 90 08/26/25 14:45 112 H 18 129/70 90 Nasal Cannula 3 08/26/25 14:30 106 H 11 L 98/64 90 08/26/25 14:15 109 H 13 89/57 90 08/26/25 14:00 108 H 21 H 83/60 91 08/26/25 13:00 103 H 18 106/63 90 08/26/25 12:00 100 29 H 118/60 91 08/26/25 11:46 98.2 F 87 24 H 120/61 08/26/25 11:00 96 15 124/80 93 08/26/25 10:45 85 21 H 118/59 94 08/26/25 10:30 96 23 H 115/62 93 08/26/25 10:15 85 18 119/60 93 08/26/25 10:00 87 18 104/63 92 08/26/25 09:45 84 19 H 103/60 93 08/26/25 09:30 90 21 H 101/45 91 08/26/25 09:15 89 7 L 85/53 93 08/26/25 09:00 95 15 103/61 90 08/26/25 08:45 98.0 F 93 19 H 122/64 91 Nasal Cannula 2.5 08/26/25 08:30 19 H 132/74 92 08/26/25 08:15 22 H 111/81 94 08/26/25 08:00 83 30 H 122/66 95 08/26/25 07:45 79 15 121/62 97 08/26/25 07:35 78 16 95 Oxymask 3 08/26/25 07:30 72 7 L 115/63 95 08/26/25 07:15 82 21 H 115/63 96 08/26/25 07:00 78 12 117/59 97 08/26/25 06:15 74 8 L 105/55 96 08/26/25 06:00 98.2 F 74 18 137/62 96 08/26/25 05:45 77 13 115/62 98 08/26/25 05:31 75 08/26/25 05:30 68 20 H 113/64 99 08/26/25 05:15 71 19 H 123/67 98 08/26/25 05:00 78 19 H 134/66 98 08/26/25 04:45 70 18 128/68 99 08/26/25 04:30 79 8 L 135/71 98 08/26/25 04:15 76 10 L 144/62 98 08/26/25 04:00 74 12 132/72 99 Respiratory exam: crackles present and positive wheezes Cardiovascular exam: regular rate, regular rhythm, S1 normal heart sound and S2 normal heart sound Capillary refill: < 3 Seconds Peripheral pulse strength: 2+ Slightly Diminished Peripheral pulse location: Radial and Pedal Skin exam: turgor normal Date exam was performed: 08/26/25 Time exam was performed: 17:18 2 Sepsis Screen No Definite Risk 08/25/25, 11:57 Respiratory Rate, (12 - 18) 46 breaths/min H Today, 15:53 Blood Pressure 108/45 mmHg Today, 15:53 [place] Coma Scale Score 15 Today, 08:00 Quick SOFA Score 1 Today, 15:59 SOFA Score: 2 [place] Coma Scale Score 15 Today, 08:00 Blood Pressure Mean 66 mmHg Today, 15:53 Total Bilirubin, (0.15-1.2) 0.9 mg/dL 08/25/25, 09 :36 Platelet Count, (157-399) 74 10^3/cmm L Today, 03:57 Creatinine, (0.7-1.2) 7.4 mg/dL H* Today, 03:57 Data 08/26/25 03:57 08/26/25 03:57 Micro: Microbiology 08/25/25 10:12 Blood Culture - Preliminary Blood NEGATIVE TO DATE 08/25/25 10:11 Blood Culture - Preliminary Blood A&P Assessment and plan 1. End stage renal disease on dialysis: 2. Bradycardia: 3. Adrenal insufficiency: 4. Multiple myeloma: 5. Metastasis to bone: 6. Closed rib fracture: 7. Fracture of left inferior pubic ramus: 8. Acute hypoxemic respiratory failure: 9. Aspiration pneumonia: 10. Pleural effusion, bilateral: 11. Fever: 12. Septic shock: Plan: Acute hypoxic respiratory failure - Secondary to aspiration pneumonia - Secondary to fluid overload, diastolic CHF, bilateral pleural effusions CT/CT chest wo con [id number] IMPRESSION: 1. Moderate bilateral pleural effusions. 2. Fluid and gas bubbles in the central mainstem bronchi and right lower lobe bronchi which could be secondary to aspiration. Bilateral lower lobe consolidation. 3. Lytic lesion with soft tissue of the left 9th rib with possible pathologic fracture. Multiple myeloma and osseous metastatic disease are in the differential. There are other acute and chronic appearing rib fractures. No segmental rib fractures. Plan - Monitor in the ICU closely - Continue broad-spectrum aerobic therapy - Vancomycin - Meropenem - Monitor respiratory status closely - Low threshold to intubation -Status post dialysis - Full code - Heparin for DVT prophylaxis Aspiration pneumonia - Keep n.p.o. 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 There are some old rib fractures as well bilaterally. In the posteromedial aspect of the left 9th rib there is suggestion of a focal lytic lesion with soft tissue component measuring 1.6 x 1.1 cm with possible pathologic fracture. Soft tissues: Unremarkable. Inferior pubic rami fracture PDMP PDMP Reviewed: Not Reviewed Attestations 2 Medical Necessity Statement*: Patient requires hospitalization for acute hypoxic respiratory failure secondary to aspiration pneumonia, septic shock Diagnoses End stage renal disease on dialysis N18.6; Z99.2 Bradycardia R00.1 Adrenal insufficiency E27.40 Multiple myeloma C90.00 Metastasis to bone C79.51 Closed rib fracture S22.39XA Fracture of left inferior pubic ramus S32.592A Acute hypoxemic respiratory failure J96.01 Aspiration pneumonia J69.0 Pleural effusion, bilateral J90 Fever R50.9 Septic shock A41.9; R65.21
[2025-08-26] MEDS: hydrocortisone 100 mg/2 mL SDV IVP (17:13)
[2025-08-26] MEDS: heparin 5,000 unit/mL INJ 1 mL 5000 UNIT SUBCUT (18:05)
--- NOTE | 2025-08-26 19:29 | PC.NURSE ---
Shift note: patient with elevated temp up to 101. and episode of low bp which required levophed to keep map above 65- Dr. Mijares made aware. Noted new orders just prior to shift change. Family at bedside when doctor Maryana into speak with patient/family about goals of care.
[2025-08-26] MEDS: diphenhydrAMINE 50 mg/mL SDV 1mL 25 MG IVP (20:26)
[2025-08-26] MEDS: hydrocortisone 100 mg/2 mL SDV 50 MG IVP (21:56)
--- NOTE | 2025-08-26 23:21 | PC.NURSE ---
notified of patients persistent pruritus. Provider placed order for IVP benadryl. Medication administered. Appears to be helping patient.
[2025-08-26 23:47] LABS: Respiratory Syncytial Virus Ce NEGATIVE (Negative); SARS-CoV-2 PCR NEGATIVE (Negative)
--- NOTE | 2025-08-26 23:54 | ECG_ITS ---
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 Measurements Intervals [place] Rate: 55 P: 47 MI: 225 QRS: 32 QRSD: 101 T: 43 QT: 449 QTc: 432 Interpretive Statements SINUS BRADYCARDIA WITH FIRST DEGREE AV BLOCK Compared to ECG 08/25/2025 15:28:21 First degree AV block now present Sinus rhythm no longer present Ventricular premature complex(es) no longer present Left anterior fascicular block no longer present Electronically Signed On 08-27-2025 10:18:55 SITE PROMOTION AGENT by Fabrizio Davies M.D. [email or web address]
[2025-08-27] VITALS (92 sets, daily range): BP systolic 115–190; BP diastolic 52–87; PULSE 38–70; RESP 0–24; TEMP 36.3–36.8; O2SAT 89–100
--- NOTE | 2025-08-27 00:13 | PC.NURSE ---
Provider notified of patients heartrate dropping into the 40s intermittently, as well as now maintaining in the mid 50s. Provider order an EKG. Notified him when it was complete. Gave orders to monitor as patient is asymptomatic.
[2025-08-27] MEDS: albumin 25 G/100 ML BAG 60 G IV ×2 (02:22→09:09)
[2025-08-27] MEDS: hydrocortisone 100 mg/2 mL SDV 50 MG IVP ×4 (04:48→22:56)
[2025-08-27] MEDS: heparin 5,000 unit/mL INJ 1 mL 5000 UNIT SUBCUT ×2 (05:06→17:07)
[2025-08-27] MEDS: HYDROcodone-acetaminophen 5-325 mg Tablet 1 TAB PO ×3 (05:18→23:07)
[2025-08-27 05:46] LABS: Hematocrit 24.4 % (37-53); Hemoglobin 7.60 g/dL (11.27-16.99); Mean Corpuscular HGB Conc 31.1 g/dL (30-55); Mean Corpuscular Hemoglobin 31.3 pg (27-33); Mean Corpuscular Volume 100.4 fl (82-101); Nucleated Red Blood Cells % 0 %; Platelet Count 74 10^3/cmm (157-399); Red Blood Count 2.43 10^6/uL (3.85-5.65); White Blood Count 6.14 10^3/uL (3.29-11.43)
[2025-08-27 05:59] LABS: Lactate (Lactic Acid level) 2.3 mmol/L (0.5-2.2)
[2025-08-27 06:01] LABS: Anion Gap 18.1 (5-19); Blood Urea Nitrogen 30 mg/dL (8-23); Calcium 8.6 mg/dL (8.5-10.5); Carbon Dioxide 28 mmol/L (22-29); Chloride 98 mmol/L (98-107); Glucose 118 mg/dL (65-115); Osmolality Calculated 297 mOsm/kg (285-295); Potassium 4.1 mmol/L (3.5-5.1); Sodium 140 mmol/L (136-145)
[2025-08-27 06:02] LABS: Magnesium 2.0 mg/dL (1.7-2.3)
[2025-08-27 06:10] LABS: NT Pro B Type Natriuretic Pept 24547 pg/mL (0-450); Procalcitonin 4.37 ng/mL (0-0.5)
--- NOTE | 2025-08-27 07:00 | XRR_ITS ---
PROCEDURE INFORMATION: Exam: XR Chest Exam date and time: 08/27/2025 7:55 AM Age: 85 years old Clinical indication: Shortness of breath; Additional info: SOB TECHNIQUE: Imaging protocol: Radiologic exam of the chest. Views: 1 view. COMPARISON: CT chest wo con [id number] 08/25/2025 10:57 AM FINDINGS: Tubes, catheters and devices: Right dialysis catheter terminates in the right atrium. Lungs: See Pleural spaces finding. Pleural spaces: Bilateral pleural effusions and bibasilar atelectasis or infiltrates, left greater than right. This appears stable. Heart/Mediastinum: See Vasculature finding. Vasculature: Moderate cardiomegaly and uncoiling of the thoracic aorta. Bones/joints: Multiple left rib fractures observed. XR/XR chest 1V portable [id number] IMPRESSION: No significant change.
--- NOTE | 2025-08-27 08:00 | XRR_ITS ---
PROCEDURE INFORMATION: Exam: XR Bilateral Hips Exam date and time: 08/27/2025 8:02 AM Age: 85 years old Clinical indication: Hip pain; Bilateral TECHNIQUE: Imaging protocol: Radiologic exam of the bilateral hips. Views: 2 views of hips with pelvis when performed. COMPARISON: CR XR hip LT 2-3V wo/w pel* [id number] 08/23/2025 11:30 AM FINDINGS: Bones/joints: Unremarkable. No acute fracture. Soft tissues: Unremarkable. XR/XR hip BI m 5V wo/w pel* [id number] IMPRESSION: No acute findings.
--- NOTE | 2025-08-27 08:00 | XRR_ITS ---
PROCEDURE INFORMATION: Exam: XR Sacrum and Coccyx, 2 or More Views Exam date and time: 08/27/2025 8:11 AM Age: 85 years old Clinical indication: Pain in coccyx area TECHNIQUE: Imaging protocol: XR of the sacrum and coccyx, 2 or more views. COMPARISON: CR XR hip BI m 5V wo/w pel* [id number] 08/27/2025 8:02 AM FINDINGS: Bones/joints: Evaluation of the coccygeal area is suboptimal on lateral view due to technique. No definite fracture seen on the frontal view. Soft tissues: Normal. XR/XR sacrum coccyx min 2V [id number] IMPRESSION: Evaluation of the coccygeal area is suboptimal on lateral view due to technique. No definite fracture seen on the frontal view.
--- NOTE | 2025-08-27 09:30 | P.PN_ITS ---
Subjective 2 Subjective: bradycardia Medications: Reviewed: Yes Vitals/I&O/Wt Last Vital Signs Temp 98.3 F 08/27/25 04:02 Pulse 54 L 08/27/25 07:40 Resp 16 08/27/25 07:40 BP 129/62 08/27/25 06:15 Pulse Ox 100 08/27/25 07:40 O2 Del Method Oxymask 08/27/25 07:40 O2 Flow Rate 3.5 08/27/25 07:40 08/26/25 08/27/25 08/27/25 22:59 06:59 14:59 Intake Total 603.688 / 953.688 100 / 1053.688 Output Total 0 / 0 Balance 603.688 / 953.688 100 / 1053.688 Weight last 48 hrs Weight 90.1 kg Weight 90.1 kg Weight 90 kg Weight 92.5 kg Weight 90.718 kg Physical Exam 2 Narrative: awake ,a lert , no distres No jvd PEERLA S1S2 RRR Lungs with decreased BS Abd , soft , non tender Ext - no edema no rash Data 08/27/25 05:27 08/27/25 05:27 Micro: Microbiology 08/25/25 10:11 Blood Culture - Preliminary Blood Streptococcus species 08/25/25 10:12 Blood Culture - Preliminary Blood NEGATIVE TO DATE A&P Assessment and plan 1. End stage renal disease on dialysis: 1. End-stage renal disease: On MWF schedule, s/p HD yesterday due to hyperkalemia 2. Acute respiratory failure due to volume overload , pneumonia, bilateral effusions and pulmonary edema, 3. Hyperkalemia:, place on low K diet . 4. History of multiple myeloma with bone mets 5. Anemia: Hemoglobin 7.6 , ordered DAMON monitor 6. sinus bradycardia Patient evaluated using audiovisual cart. Time spent 40-minute PDMP PDMP Reviewed: Not Reviewed Attestations 2 Medical Necessity Statement*: per medicine Coding Level of Care Code Acute Code for Chg Fwd Diagnoses End stage renal disease on dialysis N18.6; Z99.2
[2025-08-27] MEDS: metoclopramide 5 mg/mL SDV 2 mL IVP (10:37)
--- NOTE | 2025-08-27 12:24 | ECG_ITS ---
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 Measurements Intervals [place] Rate: 46 P: 24 SD: 227 QRS: -56 QRSD: 98 T: 55 QT: 530 QTc: 467 Interpretive Statements SINUS BRADYCARDIA WITH FIRST DEGREE AV BLOCK PATTERN CONSISTENT WITH PULMONARY DISEASE Compared to ECG 08/26/2025 23:59:41 No significant changes Electronically Signed On 08-29-2025 17:50:49 PACKING LINE WORKER by Fabrizio Davies M.D. [email or web address]
--- NOTE | 2025-08-27 13:12 | PC.NURSE ---
Hr down to 40 - sleeping at time, woken - hr up to 53 then back to 42. Stating in low 40's. Dr. Mijares made aware. See new orders. Called to clarify as bp 160-184/70-80s. Also midrodine po due. Orders obtained to hold midrodrine dose for now and keep dopamine on standby to use if bp drops.
[2025-08-27 13:28] LABS: Hematocrit 24.0 % (37-53); Hemoglobin 7.80 g/dL (11.27-16.99); Mean Corpuscular HGB Conc 32.5 g/dL (30-55); Mean Corpuscular Hemoglobin 32.5 pg (27-33); Mean Corpuscular Volume 100.0 fl (82-101); Nucleated Red Blood Cells % 0 %; Platelet Count 77 10^3/cmm (157-399); Red Blood Count 2.40 10^6/uL (3.85-5.65); White Blood Count 6.64 10^3/uL (3.29-11.43)
--- NOTE | 2025-08-27 14:25 | P.PN_ITS ---
Subjective 2 Subjective: Patient was seen this morning, He is currently alert oriented x 3, following all commands - He is currently off Levophed On 4 L nasal cannula He appears ill, but does not appear to be in respiratory distress Does have a cough, shortness of breath but improving, no abdominal pain Does report generalized weakness, fatigue, poor appetite We discussed his hospitalization and his overall goals of care Nursing staff were present during this goals of care discussion After detailed goals of care discussion Manuel does not want to have aggressive interventions, he would like to be he does not want CPR, does not want shock, does not want to be intubated but is okay for drugs as per ACLS We discussed his recurrent aspiration pneumonia he does not want to have a feeding tube I also had a family meeting with patient and his family once he arrived We discussed his hospitalization his underlying risk factors with his recurrent aspiration, pneumonia and respiratory failure and septic shock Currently Manuel does not want to undergo modified barium swallow as he is in too much pain and he does not want to get up out of bed as test involves him sitting up in a chair he does not undergo the test Discussed trying another bedside swallow eval However my concerns for recurrent aspiration is quite high especially as his condition suddenly worsened yesterday after lunch, he developed respiratory failure, desaturations of his oxygen saturations worsening septic shock Discussed options available Discussed medical interventions giving him time, IV antibiotics, trying or an oral diet, understanding that there is a high risk of recurrent aspiration morbidity and mortality associated as he does not want to have a feeding tube, The other option I discussed was hospice care Family wants to discuss further before making any decisions Vitals/I&O/Wt Last Vital Signs Temp 97.3 F L 08/27/25 12:30 Pulse 46 L 08/27/25 13:00 Resp 18 08/27/25 13:00 BP 184/71 08/27/25 13:00 Pulse Ox 95 08/27/25 13:00 O2 Del Method Nasal Cannula 08/27/25 13:00 O2 Flow Rate 3 08/27/25 13:00 08/26/25 08/27/25 08/27/25 22:59 06:59 14:59 Intake Total 603.688 / 953.688 100 / 1053.688 110 / 110 Output Total 0 / 0 0 / 0 Balance 603.688 / 953.688 100 / 1053.688 110 / 110 Weight last 48 hrs Weight 90.1 kg Weight 90.1 kg Weight 90 kg Physical Exam 2 Const: COMMON NORMALS: no acute distress and patient oriented x3 Resp: COMMON NORMALS: normal respiratory effort, No retractions, No use of accessory muscles and clear to auscultation bilaterally AUSCULTATION: clear to auscultation bilaterally Cardio: COMMON NORMALS: regular rhythm, S1 normal heart sound present and S2 normal heart sound present RATE: bradycardic RHYTHM: regular rhythm H EART SOUNDS: S1 normal heart sound present and S2 normal heart sound present GI: COMMON NORMALS: Normal to inspection, nondistended, normoactive bowel sounds present and non-tender Extremity: COMMON NORMALS: no pedal edema Neuro: COMMON NORMALS: patient oriented x3, CN's II-XII intact bilaterally and moves all extremities Psych: COMMON NORMALS: mental status grossly normal Data 08/27/25 12:56 08/27/25 05:27 Micro: Microbiology 08/25/25 10:11 Blood Culture - Preliminary Blood Streptococcus species 08/25/25 10:12 Blood Culture - Preliminary Blood NEGATIVE TO DATE A&P Assessment and plan 1. End stage renal disease on dialysis: 2. Bradycardia: 3. Adrenal insufficiency: 4. Multiple myeloma: 5. Metastasis to bone: 6. Closed rib fracture: 7. Fracture of left inferior pubic ramus: 8. Acute hypoxemic respiratory failure: 9. Aspiration pneumonia: 10. Pleural effusion, bilateral: 11. Fever: 12. Septic shock: Plan: Acute hypoxic respiratory failure - Secondary to aspiration pneumonia - Secondary to fluid overload, diastolic CHF, bilateral pleural effusions CT/CT chest wo con [id number] IMPRESSION: 1. Moderate bilateral pleural effusions. 2. Fluid and gas bubbles in the central mainstem bronchi and right lower lobe bronchi which could be secondary to aspiration. Bilateral lower lobe consolidation. 3. Lytic lesion with soft tissue of the left 9th rib with possible pathologic fracture. Multiple myeloma and osseous metastatic disease are in the differential. There are other acute and chronic appearing rib fractures. No segmental rib fractures. Plan - Monitor in the ICU closely - Continue broad-spectrum aerobic therapy - Vancomycin - Meropenem - Monitor respiratory status closely - Low threshold to intubation -Status post dialysis - Full code - Heparin for DVT prophylaxis Aspiration pneumonia - Keep n.p.o. 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 There are some old rib fractures as well bilaterally. In the posteromedial aspect of the left 9th rib there is suggestion of a focal lytic lesion with soft tissue component measuring 1.6 x 1.1 cm with possible pathologic fracture. Soft tissues: Unremarkable. Inferior pubic rami fracture Sinus bradycardia, monitor closely in ICU PDMP PDMP Reviewed: Not Reviewed Attestations 2 Medical Necessity Statement*: Patient requires hospitalization for recurrent aspiration pneumonia, respiratory failure, septic shock Diagnoses End stage renal disease on dialysis N18.6; Z99.2 Bradycardia R00.1 Adrenal insufficiency E27.40 Multiple myeloma C90.00 Metastasis to bone C79.51 Closed rib fracture S22.39XA Fracture of left inferior pubic ramus S32.592A Acute hypoxemic respiratory failure J96.01 Aspiration pneumonia J69.0 Pleural effusion, bilateral J90 Fever R50.9 Septic shock A41.9; R65.21
[2025-08-28] VITALS (72 sets, daily range): BP systolic 99–188; BP diastolic 58–101; PULSE 45–89; RESP 8–26; TEMP 36–36.7; O2SAT 85–97; BMI 24.3
--- NOTE | 2025-08-28 04:05 | PC.NURSE ---
NPO: patient was demanding something to eat and drink, this nurse educated patient on the risks of aspiration and the NPO order. Patient still requested this nurse contact the night hospitilist. Dr. Sevilla advised the patient wait until morning physician rounds to communicate his concerns with him. Patient was agreeable to this if he was allowed water. Patient was given water.
--- NOTE | 2025-08-28 04:49 | PM.PN ---
Subjective Subjective: no new c/o Medications: Reviewed: Yes Vitals/I&O/Wt Last Vital Signs Temp 96.9 F L 08/28/25 00:45 Pulse 50 L 08/28/25 03:00 Resp 20 H 08/28/25 03:00 BP 154/74 08/28/25 03:00 Pulse Ox 96 08/28/25 03:00 O2 Del Method Nasal Cannula 08/28/25 03:00 O2 Flow Rate 2 08/28/25 03:00 08/27/25 08/27/25 08/28/25 14:59 22:59 06:59 Intake Total 110 / 110 350 / 460 Output Total 0 / 0 Balance 110 / 110 350 / 460 Weight last 48 hrs Weight 90.1 kg Weight 90.1 kg Physical Exam Narrative: awake ,a lert , no distres No jvd PEERLA S1S2 RRR Lungs with decreased BS Abd , soft , non tender Ext - no edema no rash Data 08/28/25 05:05 08/28/25 05:05 A&P Assessment and plan 1. End stage renal disease on dialysis: 1. End-stage renal disease: On MWF schedule, HD today 2. Acute respiratory failure due to volume overload , pneumonia, bilateral effusions and pulmonary edema, 3. Hyperkalemia:, placed on low K diet . 4. History of multiple myeloma with bone mets 5. Anemia: Hemoglobin 7.8 ,s/p DAMON monitor 6. sinus bradycardia Patient evaluated using audiovisual cart. Time spent 40-minute PDMP PDMP Reviewed: Not Reviewed Attestations Medical Necessity Statement*: per [facility] Coding Level of Care Code Acute Code for Chg Fwd Diagnoses End stage renal disease on dialysis N18.6; Z99.2
[2025-08-28] MEDS: hydrocortisone 100 mg/2 mL SDV 50 MG IVP ×3 (05:07→16:25)
[2025-08-28] MEDS: heparin 5,000 unit/mL INJ 1 mL 5000 UNIT SUBCUT ×2 (05:10→18:23)
[2025-08-28 05:45] LABS: Hematocrit 30.8 % (37-53); Mean Corpuscular HGB Conc 33.1 g/dL (30-55); Mean Corpuscular Hemoglobin 31.3 pg (27-33); Mean Corpuscular Volume 94.5 fl (82-101); Nucleated Red Blood Cells % 0 %; Platelet Count 94 10^3/cmm (157-399); Red Blood Count 3.26 10^6/uL (3.85-5.65); White Blood Count 7.42 10^3/uL (3.29-11.43)
[2025-08-28 05:57] LABS: Hemoglobin 10.20 g/dL (11.27-16.99)
[2025-08-28 06:07] LABS: Anion Gap 20.9 (5-19); Blood Urea Nitrogen 42 mg/dL (8-23); Calcium 8.8 mg/dL (8.5-10.5); Carbon Dioxide 25 mmol/L (22-29); Chloride 99 mmol/L (98-107); Glucose 114 mg/dL (65-115); Osmolality Calculated 301 mOsm/kg (285-295); Potassium 4.9 mmol/L (3.5-5.1); Sodium 140 mmol/L (136-145)
[2025-08-28 06:09] LABS: Lactate (Lactic Acid level) 0.9 mmol/L (0.5-2.2); Magnesium 2.3 mg/dL (1.7-2.3)
[2025-08-28 06:20] LABS: Procalcitonin 3.74 ng/mL (0-0.5)
[2025-08-28 06:40] LABS: NT Pro B Type Natriuretic Pept 35608 pg/mL (0-450)
--- NOTE | 2025-08-28 13:02 | PC.SOCIAL ---
IMM Updated Updated pt & family on IMM. No questions voiced. Provided pt a copy. Initialed, dated, & timed a copy & placed in chart.
[2025-08-28] MEDS: HYDROcodone-acetaminophen 5-325 mg Tablet 1 TAB PO ×2 (14:28→20:33)
--- NOTE | 2025-08-28 16:54 | PC.NURSE ---
Called report to Eda, patient transferred upstairs at 1650. Family with patient during transport.
--- NOTE | 2025-08-28 17:57 | P.PN_ITS ---
Subjective 2 Subjective: - Patient was seen this morning, - He is alert oriented x 3, following al l commands - No chest pain, no palpitations - No lightheadedness, dizziness - I had a meeting with patient and his w darian and his daughter at bedside - Discussed goals of care - Patient's family is not ready to make a decision about his overall goals of care - They want to try to take him home - They want to continue medical interven tions for now, try to get him stronger, - Manuel tells me that he wants to try to participate with physical therapy, - We discussed my concerns for aspiratio n, he is adamant that he will not aspirate, discussed trial of dysphagia level 4 diet, moderately thickened, discussed morbidity and mortality associate with recurrent aspiration, he voices understanding, all questions answered - Discussed monitoring as inpatient, he is agreeable Vitals/I&O/Wt Last Vital Signs Temp 98.1 F 08/28/25 17:15 Pulse 86 08/28/25 17:15 Resp 17 08/28/25 17:15 BP 124/86 08/28/25 17:15 Pulse Ox 85 L 08/28/25 17:15 O2 Del Method Nasal Cannula 08/28/25 17:15 O2 Flow Rate 5 08/28/25 16:15 08/28/25 08/28/25 08/28/25 06:59 14:59 22:59 Intake Total 620 / 620 Output Total 3000 / 3000 Balance -2380 / -2380 Weight last 48 hrs Weight 87 kg Weight 88.5 kg Weight 90.1 kg Physical Exam 2 Const: COMMON NORMALS: no acute distress and patient oriented x3 Resp: COMMON NORMALS: normal respiratory effort, No retractions and No use of accessory muscles AUSCULTATION: crackles and wheezes Cardio: COMMON NORMALS: regular rate, regular rhythm, S1 normal heart sound present and S2 normal heart sound present RATE: regular rate RHYTHM: r egular rhythm HEART SOUNDS: S1 normal heart sound present and S2 normal heart sound present GI: COMMON NORMALS: Normal to inspection, nondistended, normoactive bowel sounds present and non-tender Extremity: COMMON NORMALS: no pedal edema Neuro: COMMON NORMALS: patient oriented x3, CN's II-XII intact bilaterally and moves all extremities Psych: COMMON NORMALS: mental status grossly normal Data 08/28/25 05:05 08/28/25 05:05 A&P Assessment and plan 1. End stage renal disease on dialysis: 2. Bradycardia: 3. Adrenal insufficiency: 4. Multiple myeloma: 5. Metastasis to bone: 6. Closed rib fracture: 7. Fracture of left inferior pubic ramus: 8. Acute hypoxemic respiratory failure: 9. Aspiration pneumonia: 10. Pleural effusion, bilateral: 11. Fever: 12. Septic shock: Plan: Acute hypoxic respiratory failure - Secondary to aspiration pneumonia - Secondary to fluid overload, diastolic CHF, bilateral pleural effusions CT/CT chest wo con [id number] IMPRESSION: 1. Moderate bilateral pleural effusions. 2. Fluid and gas bubbles in the central mainstem bronchi and right lower lobe bronchi which could be secondary to aspiration. Bilateral lower lobe consolidation. 3. Lytic lesion with soft tissue of the left 9th rib with possible pathologic fracture. Multiple myeloma and osseous metastatic disease are in the differential. There are other acute and chronic appearing rib fractures. No segmental rib fractures. Plan - Will moved to medical floors - Continue broad-spectrum antibiotic therapy - Vancomycin - Meropenem - Monitor respiratory status closely -Plan for dialysis today - Full code - Heparin for DVT prophylaxis Aspiration pneumonia - Therapy evaluated, will start on dysphagia level 4 diet, moderately thickened, aspiration precautions - Speech therapy eval - Does not want to undergo a modified barium swallow - Patient and family understand he has a high risk of recurrent aspiration, and morbidity and mortality associated Septic shock, resolved -Secondary to aspiration pneumonia -Currently on Levophed -Current concerns for adrenal insufficiency hydrocortisone 100 mg IV push once followed by 50 mg IV every 6 hours -Fludrocortisone 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 There are some old rib fractures as well bilaterally. In the posteromedial aspect of the left 9th rib there is suggestion of a focal lytic lesion with soft tissue component measuring 1.6 x 1.1 cm with possible pathologic fracture. Soft tissues: Unremarkable. Inferior pubic rami fracture Sinus bradycardia, telemetry monitoring Deconditioning, protein calorie malnutrition - PT OT PDMP PDMP Reviewed: Not Reviewed Attestations 2 Medical Necessity Statement*: Patient is hospitalization for acute hypoxic respiratory failure, aspiration pneumonia, deconditioning, sinus bradycardia Diagnoses End stage renal disease on dialysis N18.6; Z99.2 Bradycardia R00.1 Adrenal insufficiency E27.40 Multiple myeloma C90.00 Metastasis to bone C79.51 Closed rib fracture S22.39XA Fracture of left inferior pubic ramus S32.592A Acute hypoxemic respiratory failure J96.01 Aspiration pneumonia J69.0 Pleural effusion, bilateral J90 Fever R50.9 Septic shock A41.9; R65.21
[2025-08-28] MEDS: lidocaine 2% viscous 15 ML, aluminum-mag hydrox-simethicon 30 ML, sucralfate oral liq 1 GM PO (18:22)
[2025-08-29] VITALS (11 sets, daily range): BP systolic 118–168; BP diastolic 65–83; PULSE 66–87; RESP 16–18; TEMP 36.4–37; O2SAT 86–96; BMI 23.9
[2025-08-29] MEDS: heparin 5,000 unit/mL INJ 1 mL 5000 UNIT SUBCUT ×2 (04:28→18:07)
[2025-08-29 05:44] LABS: Hematocrit 33.6 % (37-53); Hemoglobin 11.10 g/dL (11.27-16.99); Mean Corpuscular HGB Conc 33.0 g/dL (30-55); Mean Corpuscular Hemoglobin 31.2 pg (27-33); Mean Corpuscular Volume 94.4 fl (82-101); Nucleated Red Blood Cells % 0 %; Platelet Count 118 10^3/cmm (157-399); Red Blood Count 3.56 10^6/uL (3.85-5.65); White Blood Count 5.81 10^3/uL (3.29-11.43)
[2025-08-29 05:59] LABS: Magnesium 2.3 mg/dL (1.7-2.3)
[2025-08-29 06:02] LABS: Procalcitonin 3.37 ng/mL (0-0.5)
[2025-08-29] MEDS: HYDROcodone-acetaminophen 5-325 mg Tablet 1 TAB PO (06:06)
[2025-08-29 06:24] LABS: NT Pro B Type Natriuretic Pept 44800 pg/mL (0-450)
--- NOTE | 2025-08-29 06:44 | PM.PN ---
Subjective Subjective: on 5L o2 Medications: Reviewed: Yes Vitals/I&O/Wt Last Vital Signs Temp 98.1 F 08/29/25 00:00 Pulse 66 08/29/25 00:00 Resp 18 08/29/25 00:00 BP 149/80 08/29/25 00:00 Pulse Ox 91 08/29/25 00:00 O2 Del Method Nasal Cannula 08/29/25 00:00 O2 Flow Rate 5 08/29/25 00:00 08/28/25 08/28/25 08/29/25 14:59 22:59 06:59 Intake Total 870 / 870 Output Total 3000 / 3000 Balance -2130 / -2130 Weight last 48 hrs Weight 87 kg Weight 88.5 kg Physical Exam Narrative: awake ,a lert , no distres No jvd PEERLA S1S2 RRR Lungs with decreased BS Abd , soft , non tender Ext - no edema no rash Data 08/29/25 05:18 08/28/25 05:05 A&P Assessment and plan 1. End stage renal disease on dialysis: 1. End-stage renal disease: On MWF schedule, HD tomorrow , ordered IV lasix today 2. Acute respiratory failure due to volume overload , pneumonia, bilateral effusions and pulmonary edema, 3. Hyperkalemia:, placed on low K diet . 4. History of multiple myeloma with bone mets 5. Anemia: ,s/p DAMON monitor 6. sinus bradycardia Patient evaluated using audiovisual cart. Time spent 40-minute PDMP PDMP Reviewed: Not Reviewed Attestations Medical Necessity Statement*: per [facility] Coding Level of Care Code Acute Code for Chg Fwd Diagnoses End stage renal disease on dialysis N18.6; Z99.2
[2025-08-29 08:24] LABS: Alanine Aminotransferase 9 U/L (0-41); Albumin Level 4.0 g/dL (3.5-5.2); Alkaline Phosphatase 71 U/L (40-130); Anion Gap 17.5 (5-19); Aspartate Amino Transferase 15 U/L (0-40); Blood Urea Nitrogen 31 mg/dL (8-23); Calcium 9.0 mg/dL (8.5-10.5); Carbon Dioxide 28 mmol/L (22-29); Chloride 102 mmol/L (98-107); Globulin 2.3 g/dL (1.3-4.6); Glucose 99 mg/dL (65-115); Osmolality Calculated 303 mOsm/kg (285-295); Potassium 4.5 mmol/L (3.5-5.1); Sodium 143 mmol/L (136-145); Total Protein 6.3 g/dL (6.6-8.7)
[2025-08-29] MEDS: FUROsemide 10 mg/mL SDV 10mL 80 MG IVP (08:26)
--- NOTE | 2025-08-29 11:40 | CTR_ITS ---
PROCEDURE INFORMATION: Exam: CT Lumbar Spine Without Contrast Exam date and time: 08/29/2025 12:09 PM Age: 85 years old Clinical indication: Low back pain TECHNIQUE: Imaging protocol: Computed tomography of the lumbar spine without contrast. Radiation optimization: All CT scans at this facility use at least one of these dose optimization techniques: automated exposure control; mA and/or kV adjustment per patient size (includes targeted exams where dose is matched to clinical indication); or iterative reconstruction. COMPARISON: CR XR sacrum coccyx min 2V [id number] 08/27/2025 8:11 AM RADIATION DOSE METRICS: Total DLP (mGy-cm): 921.8 FINDINGS: Bones/joints: Mild levoscoliosis. Lumbar lordosis is preserved. Posterior elements are aligned. Mild retrolisthesis T12 on L1 and L1 on L2. Grade 1 anterolisthesis L4 on L5. Diffuse osteopenia. Vertebral body heights are maintained. No acute fracture. Multilevel degenerative changes resulting in varying degrees of bilateral foraminal narrowing. No significant spinal canal stenosis. Evaluation of spinal canal contents is limited with CT technique. Bilateral sacroiliac degenerative changes. Pleural spaces: Right pleural effusion. Stomach and bowel: Colonic diverticulosis. Small duodenal diverticulum. Vasculature: Atherosclerotic changes. Soft tissues: Prevertebral and paraspinal soft tissues are unremarkable. CT/CT lumbar spine wo con* [id number] IMPRESSION: No acute lumbar spine fracture.
--- NOTE | 2025-08-29 12:15 | P.PN_ITS ---
Subjective 2 Subjective: Patient was seen this morning, alert oriented x 3, follow commands, denies any fevers, chills, no cough he does report lower back pain, Vitals/I&O/Wt Last Vital Signs Temp 98.4 F 08/29/25 11:20 Pulse 87 08/29/25 11:20 Resp 16 08/29/25 11:20 BP 118/65 08/29/25 11:20 Pulse Ox 91 08/29/25 11:20 O2 Del Method Simple Mask 08/29/25 11:20 O2 Flow Rate 5 08/29/25 08:19 08/28/25 08/29/25 08/29/25 22:59 06:59 14:59 Intake Total 870 / 870 100 / 970 120 / 120 Output Total 3000 / 3000 0 / 3000 Balance -2130 / -2130 100 / -2030 120 / 120 Weight last 48 hrs Weight 87 kg Weight 87 kg Weight 88.5 kg Physical Exam 2 Const: COMMON NORMALS: no acute distress and patient oriented x3 Resp: COMMON NORMALS: normal respiratory effort, No retractions and No use of accessory muscles AUSCULTATION: crackles and wheezes Cardio: COMMON NORMALS: regular rate, regular rhythm, S1 normal heart sound present and S2 normal heart sound present RATE: regular rate RHYTHM: r egular rhythm HEART SOUNDS: S1 normal heart sound present and S2 normal heart sound present GI: COMMON NORMALS: Normal to inspection, nondistended, normoactive bowel sounds present and non-tender Extremity: COMMON NORMALS: no pedal edema Neuro: COMMON NORMALS: patient oriented x3 Psych: COMMON NORMALS: mental status grossly normal Data 08/29/25 05:18 08/29/25 05:18 A&P Assessment and plan 1. End stage renal disease on dialysis: 2. Bradycardia: 3. Adrenal insufficiency: 4. Multiple myeloma: 5. Metastasis to bone: 6. Closed rib fracture: 7. Fracture of left inferior pubic ramus: 8. Acute hypoxemic respiratory failure: 9. Aspiration pneumonia: 10. Pleural effusion, bilateral: 11. Fever: 12. Septic shock: Plan: Acute hypoxic respiratory failure - Secondary to aspiration pneumonia - Secondary to fluid overload, diastolic CHF, bilateral pleural effusions CT/CT chest wo con [id number] IMPRESSION: 1. Moderate bilateral pleural effusions. 2. Fluid and gas bubbles in the central mainstem bronchi and right lower lobe bronchi which could be secondary to aspiration. Bilateral lower lobe consolidation. 3. Lytic lesion with soft tissue of the left 9th rib with possible pathologic fracture. Multiple myeloma and osseous metastatic disease are in the differential. There are other acute and chronic appearing rib fractures. No segmental rib fractures. Plan - Will moved to medical floors - Continue broad-spectrum antibiotic therapy - Vancomycin - Meropenem - Monitor respiratory status closely - Dialysis tomorrow - Full code - Heparin for DVT prophylaxis Aspiration pneumonia - Therapy evaluated, will start on dysphagia level 4 diet, moderately thickened, aspiration precautions - Speech therapy eval - Does not want to undergo a modified barium swallow - Patient and family understand he has a high risk of recurrent aspiration, and morbidity and mortality associated Septic shock, resolved -Secondary to aspiration pneumonia -Currently on Levophed -Current concerns for adrenal insufficiency hydrocortisone 100 mg IV push once followed by 50 mg IV every 6 hours -Fludrocortisone 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 There are some old rib fractures as well bilaterally. In the posteromedial aspect of the left 9th rib there is suggestion of a focal lytic lesion with soft tissue component measuring 1.6 x 1.1 cm with possible pathologic fracture. Soft tissues: Unremarkable. Inferior pubic rami fracture Sinus bradycardia, telemetry monitoring Deconditioning, protein calorie malnutrition - PT OT Low back pain, CT lumbar spine PDMP PDMP Reviewed: Not Reviewed Attestations 2 Medical Necessity Statement*: Patient requires hospitalization for pneumonia, aspiration, fluid overload Diagnoses End stage renal disease on dialysis N18.6; Z99.2 Bradycardia R00.1 Adrenal insufficiency E27.40 Multiple myeloma C90.00 Metastasis to bone C79.51 Closed rib fracture S22.39XA Fracture of left inferior pubic ramus S32.592A Acute hypoxemic respiratory failure J96.01 Aspiration pneumonia J69.0 Pleural effusion, bilateral J90 Fever R50.9 Septic shock A41.9; R65.21
[2025-08-29] MEDS: morphine 4 mg/mL SDV 1 mL 2 MG IVP ×2 (12:48→23:41)
[2025-08-30] VITALS (9 sets, daily range): BP systolic 99–182; BP diastolic 64–88; PULSE 65–97; RESP 16–18; TEMP 36.4–37.1; O2SAT 90–97
[2025-08-30 04:01] LABS: Hematocrit 31.4 % (37-53); Hemoglobin 10.10 g/dL (11.27-16.99); Mean Corpuscular HGB Conc 32.2 g/dL (30-55); Mean Corpuscular Hemoglobin 31.3 pg (27-33); Mean Corpuscular Volume 97.2 fl (82-101); Nucleated Red Blood Cells % 0 %; Platelet Count 106 10^3/cmm (157-399); Red Blood Count 3.23 10^6/uL (3.85-5.65); White Blood Count 3.78 10^3/uL (3.29-11.43)
[2025-08-30 04:22] LABS: Alanine Aminotransferase 7 U/L (0-41); Albumin Level 3.9 g/dL (3.5-5.2); Alkaline Phosphatase 69 U/L (40-130); Anion Gap 15.4 (5-19); Aspartate Amino Transferase 12 U/L (0-40); Blood Urea Nitrogen 42 mg/dL (8-23); Calcium 8.7 mg/dL (8.5-10.5); Carbon Dioxide 29 mmol/L (22-29); Chloride 102 mmol/L (98-107); Globulin 2.1 g/dL (1.3-4.6); Glucose 88 mg/dL (65-115); Osmolality Calculated 304 mOsm/kg (285-295); Potassium 4.4 mmol/L (3.5-5.1); Sodium 142 mmol/L (136-145); Total Protein 6.0 g/dL (6.6-8.7)
[2025-08-30] MEDS: heparin 5,000 unit/mL INJ 1 mL 5000 UNIT SUBCUT ×2 (04:54→17:39)
--- NOTE | 2025-08-30 13:26 | PC.SLP ---
Patient had just eaten lunch and took medication with thickened liquids. Patient and caregiver expressed no concerns with current diet at this time. Patient had just been seen by PT and was not wanting to eat or drink anything. Therapist will follow up in the morning.
--- NOTE | 2025-08-30 13:33 | P.PN_ITS ---
Subjective 2 Subjective: getting hD Medications: Reviewed: Yes Vitals/I&O/Wt Last Vital Signs Temp 97.9 F 08/30/25 11:56 Pulse 69 08/30/25 11:56 Resp 18 08/30/25 11:56 BP 143/75 08/30/25 11:56 Pulse Ox 94 08/30/25 11:56 O2 Del Method Nasal Cannula 08/30/25 11:56 O2 Flow Rate 5 08/29/25 08:19 08/29/25 08/30/25 08/30/25 22:59 06:59 14:59 Intake Total 200 / 440 420 / 860 220 / 220 Output Total 0 / 0 Balance 200 / 440 420 / 860 220 / 220 Weight last 48 hrs Weight 86.636 kg Weight 87 kg Weight 87 kg Physical Exam 2 Narrative: awake ,a lert , no distres No jvd PEERLA S1S2 RRR Lungs with decreased BS Abd , soft , non tender Ext - no edema no rash Data 08/30/25 03:03 08/30/25 03:03 Micro: Microbiology 08/25/25 10:12 Blood Culture - Final Blood NO GROWTH AFTER 5 DAYS 08/25/25 10:11 Blood Culture - Final Blood Group g streptococcus A&P Assessment and plan 1. End stage renal disease on dialysis: 1. End-stage renal disease: On MWF schedule, HD today 2. Acute respiratory failure due to volume overload , pneumonia, bilateral effusions and pulmonary edema, 3. Hyperkalemia:, placed on low K diet . 4. History of multiple myeloma with bone mets 5. Anemia: ,s/p DAMON monitor 6. sinus bradycardia Patient evaluated using audiovisual cart. Time spent 40-minute PDMP PDMP Reviewed: Not Reviewed Attestations 2 Medical Necessity Statement*: per [facility] Coding Level of Care Code Acute Code for Chg Fwd Diagnoses End stage renal disease on dialysis N18.6; Z99.2
--- NOTE | 2025-08-30 15:13 | PC.SOCIAL ---
*IMM Update* Patient received a copy of Important Message from [employer]. Initialled, dated and placed in Chart.
--- NOTE | 2025-08-30 15:18 | P.PN_ITS ---
Subjective 2 Subjective: Patient was seen this morning, currently alert oriented x 3, follow commands, he is frustrated about his dysphagia diet, we discussed morbidity and mortality about recurrent aspiration, he adamantly denies aspirating, he is frustrated he just wants water, we discussed the morbidity mortality associate with aspirating liquids, he tells me he does not feel that he aspirates, discussed the events of his ICU admission when he developed significant respiratory failure and septic shock associate with aspiration event however he does not agree with this, we had a detailed discussion I will de-escalate his diet to dysphagia level 6 diet, with mild thickener, will have to monitor his feeding very closely discussed risk of aspiration, morbidity mortality associated, he voiced understanding, all questions answered he wants to be on regular liquids but discussed with him I am willing to start him off on mildly thickened liquids and see how he progresses he agrees Vitals/I&O/Wt Last Vital Signs Temp 97.9 F 08/30/25 11:56 Pulse 69 08/30/25 11:56 Resp 18 08/30/25 11:56 BP 143/75 08/30/25 11:56 Pulse Ox 94 08/30/25 11:56 O2 Del Method Nasal Cannula 08/30/25 11:56 O2 Flow Rate 5 08/29/25 08:19 08/30/25 08/30/25 08/30/25 06:59 14:59 22:59 Intake Total 420 / 860 220 / 220 Balance 420 / 860 220 / 220 Weight last 48 hrs Weight 86.636 kg Weight 87 kg Weight 87 kg Physical Exam 2 Const: COMMON NORMALS: no acute distress and patient oriented x3 Resp: COMMON NORMALS: normal respiratory effort, No retractions, No use of accessory muscles and clear to auscultation bilaterally AUSCULTATION: clear to auscultation bilaterally Cardio: COMMON NORMALS: regular rate, regular rhythm, S1 normal heart sound present and S2 normal heart sound present RATE: regular rate RHYTHM: r egular rhythm HEART SOUNDS: S1 normal heart sound present and S2 normal heart sound present GI: COMMON NORMALS: Normal to inspection, nondistended, normoactive bowel sounds present and non-tender Extremity: COMMON NORMALS: no pedal edema Neuro: COMMON NORMALS: patient oriented x3 Psych: COMMON NORMALS: mental status grossly normal Data 08/30/25 03:03 08/30/25 03:03 Micro: Microbiology 08/25/25 10:12 Blood Culture - Final Blood NO GROWTH AFTER 5 DAYS 08/25/25 10:11 Blood Culture - Final Blood Group g streptococcus A&P Assessment and plan 1. End stage renal disease on dialysis: 2. Bradycardia: 3. Adrenal insufficiency: 4. Multiple myeloma: 5. Metastasis to bone: 6. Closed rib fracture: 7. Fracture of left inferior pubic ramus: 8. Acute hypoxemic respiratory failure: 9. Aspiration pneumonia: 10. Pleural effusion, bilateral: 11. Fever: 12. Septic shock: Plan: Acute hypoxic respiratory failure - Secondary to aspiration pneumonia - Secondary to fluid overload, diastolic CHF, bilateral pleural effusions CT/CT chest wo con [id number] IMPRESSION: 1. Moderate bilateral pleural effusions. 2. Fluid and gas bubbles in the central mainstem bronchi and right lower lobe bronchi which could be secondary to aspiration. Bilateral lower lobe consolidation. 3. Lytic lesion with soft tissue of the left 9th rib with possible pathologic fracture. Multiple myeloma and osseous metastatic disease are in the differential. There are other acute and chronic appearing rib fractures. No segmental rib fractures. Plan - Will moved to medical floors - IV Rocephin - Monitor respiratory status closely - Dialysis today - Full code - Heparin for DVT prophylaxis Group G strep bacteremia - Likely secondary pneumonia - Will need 2 weeks of IV Rocephin Aspiration pneumonia - De-escalate to dysphagia level 6 diet, mildly thickened - Speech therapy eval - Does not want to undergo a modified barium swallow - Patient and family understand he has a high risk of recurrent aspiration, and morbidity and mortality associated Septic shock, resolved -Secondary to aspiration pneumonia -Currently on Levophed -Current concerns for adrenal insufficiency hydrocortisone 100 mg IV push once followed by 50 mg IV every 6 hours -Fludrocortisone 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 There are some old rib fractures as well bilaterally. In the posteromedial aspect of the left 9th rib there is suggestion of a focal lytic lesion with soft tissue component measuring 1.6 x 1.1 cm with possible pathologic fracture. Soft tissues: Unremarkable. Inferior pubic rami fracture Sinus bradycardia, telemetry monitoring Deconditioning, protein calorie malnutrition - PT OT Low back pain, CT lumbar spine Bones/joints: Mild levoscoliosis. Lumbar lordosis is preserved. Posterior elements are aligned. Mild retrolisthesis T12 on L1 and L1 on L2. Grade 1 anterolisthesis L4 on L5. Diffuse osteopenia. Vertebral body heights are maintained. No acute fracture. Multilevel degenerative changes resulting in varying degrees of bilateral foraminal narrowing. No significant spinal canal stenosis. Evaluation of spinal canal contents is limited with CT technique. Bilateral sacroiliac degenerative changes. Pleural spaces: Right pleural effusion. Stomach and bowel: Colonic diverticulosis. Small duodenal diverticulum. Vasculature: Atherosclerotic changes. Soft tissues: Prevertebral and paraspinal soft tissues are unremarkable. PDMP PDMP Reviewed: Not Reviewed Attestations 2 Medical Necessity Statement*: Patient requires hospitalization for group g strep bacteremia, respiratory failure Diagnoses End stage renal disease on dialysis N18.6; Z99.2 Bradycardia R00.1 Adrenal insufficiency E27.40 Multiple myeloma C90.00 Metastasis to bone C79.51 Closed rib fracture S22.39XA Fracture of left inferior pubic ramus S32.592A Acute hypoxemic respiratory failure J96.01 Aspiration pneumonia J69.0 Pleural effusion, bilateral J90 Fever R50.9 Septic shock A41.9; R65.21
[2025-08-30] MEDS: HYDROcodone-acetaminophen 5-325 mg Tablet 1 TAB PO (17:38)
[2025-08-30] MEDS: cefTRIAXone 2,000 mg SDV 2000 MG IVP (17:38)
[2025-08-30] MEDS: lidocaine 2% viscous 15 ML, aluminum-mag hydrox-simethicon 30 ML, sucralfate oral liq 1 GM PO (17:49)
[2025-08-31] VITALS (14 sets, daily range): BP systolic 88–118; BP diastolic 47–81; PULSE 73–115; RESP 13–18; TEMP 36.4–36.9; O2SAT 90–97
[2025-08-31] MEDS: HYDROcodone-acetaminophen 5-325 mg Tablet 1 TAB PO ×3 (00:40→20:35)
--- NOTE | 2025-08-31 01:28 | PC.NURSE ---
This G[employer] immediatly notified Veronique ESPINAL of low blood pressure after checking twice
[2025-08-31 05:05] LABS: Hematocrit 32.7 % (37-53); Hemoglobin 10.40 g/dL (11.27-16.99); Mean Corpuscular HGB Conc 31.8 g/dL (30-55); Mean Corpuscular Hemoglobin 31.0 pg (27-33); Mean Corpuscular Volume 97.6 fl (82-101); Nucleated Red Blood Cells % 0 %; Platelet Count 126 10^3/cmm (157-399); Red Blood Count 3.35 10^6/uL (3.85-5.65); White Blood Count 2.75 10^3/uL (3.29-11.43)
[2025-08-31] MEDS: heparin 5,000 unit/mL INJ 1 mL 5000 UNIT SUBCUT ×2 (05:17→17:22)
[2025-08-31 05:26] LABS: Alanine Aminotransferase < 5 U/L (0-41); Albumin Level 3.5 g/dL (3.5-5.2); Alkaline Phosphatase 65 U/L (40-130); Anion Gap 13.9 (5-19); Aspartate Amino Transferase 10 U/L (0-40); Blood Urea Nitrogen 32 mg/dL (8-23); Calcium 8.2 mg/dL (8.5-10.5); Carbon Dioxide 29 mmol/L (22-29); Chloride 101 mmol/L (98-107); Globulin 2.2 g/dL (1.3-4.6); Glucose 89 mg/dL (65-115); Osmolality Calculated 296 mOsm/kg (285-295); Potassium 3.9 mmol/L (3.5-5.1); Sodium 140 mmol/L (136-145); Total Protein 5.7 g/dL (6.6-8.7)
--- NOTE | 2025-08-31 12:08 | P.PN_ITS ---
Subjective 2 Subjective: no new c/o Medications: Reviewed: Yes Vitals/I&O/Wt Last Vital Signs Temp 97.6 F 08/31/25 10:54 Pulse 73 08/31/25 10:54 Resp 16 08/31/25 10:54 BP 104/67 08/31/25 10:54 Pulse Ox 96 08/31/25 10:54 O2 Del Method Nasal Cannula 08/31/25 10:54 O2 Flow Rate 5 08/31/25 10:54 08/30/25 08/31/25 08/31/25 22:59 06:59 14:59 Intake Total 680 / 900 410 / 1310 240 / 240 Output Total 1777 / 1777 0 / 1777 Balance -1097 / -877 410 / -467 240 / 240 Weight last 48 hrs Weight 83.461 kg Weight 84.7 kg Weight 86.636 kg Physical Exam 2 Narrative: awake ,a lert , no distres No jvd PEERLA S1S2 RRR Lungs with decreased BS Abd , soft , non tender Ext - no edema no rash Data 08/31/25 04:49 08/31/25 04:49 Micro: Microbiology 08/30/25 16:40 Blood Culture - Preliminary Blood SPECIMEN COLLECTED 08/30/25 16:39 Blood Culture - Preliminary Blood SPECIMEN COLLECTED 08/25/25 10:12 Blood Culture - Final Blood NO GROWTH AFTER 5 DAYS A&P Assessment and plan 1. End stage renal disease on dialysis: 1. End-stage renal disease: On MWF schedule, next HD tuesday 2. Acute respiratory failure due to volume overload , pneumonia, bilateral effusions and pulmonary edema, 3. Hyperkalemia:, placed on low K diet . 4. History of multiple myeloma with bone mets 5. Anemia: ,s/p ADMON monitor 6. sinus bradycardia Patient evaluated using audiovisual cart. Time spent 40-minute PDMP PDMP Reviewed: Not Reviewed Attestations 2 Medical Necessity Statement*: per medicine Coding Level of Care Code Acute Code for Chg Fwd Diagnoses End stage renal disease on dialysis N18.6; Z99.2
--- NOTE | 2025-08-31 13:25 | P.PN_ITS ---
Subjective 2 Subjective: Patient was seen this morning, currently alert oriented x 3, following all commands, discussed monitoring diet, we might try clear liquids today based on his clinical progress Vitals/I&O/Wt Last Vital Signs Temp 97.6 F 08/31/25 10:54 Pulse 73 08/31/25 10:54 Resp 16 08/31/25 10:54 BP 104/67 08/31/25 10:54 Pulse Ox 96 08/31/25 10:54 O2 Del Method Nasal Cannula 08/31/25 10:54 O2 Flow Rate 5 08/31/25 10:54 08/30/25 08/31/25 08/31/25 22:59 06:59 14:59 Intake Total 680 / 900 410 / 1310 240 / 240 Output Total 1777 / 1777 0 / 1777 Balance -1097 / -877 410 / -467 240 / 240 Weight last 48 hrs Weight 83.461 kg Weight 84.7 kg Weight 86.636 kg Physical Exam 2 Const: COMMON NORMALS: no acute distress and patient oriented x3 OTHER: Ill-appearing Resp: COMMON NORMALS: normal respiratory effort, No retractions, No use of accessory muscles and clear to auscultation bilaterally AUSCULTATION: clear to auscultation bilaterally Cardio: COMMON NORMALS: regular rate, regular rhythm, S1 normal heart sound present and S2 normal heart sound present RATE: regular rate RHYTHM: r egular rhythm HEART SOUNDS: S1 normal heart sound present and S2 normal heart sound present GI: COMMON NORMALS: Normal to inspection, nondistended, normoactive bowel sounds present and non-tender Extremity: COMMON NORMALS: no pedal edema Neuro: COMMON NORMALS: patient oriented x3 Psych: COMMON NORMALS: mental status grossly normal Data 08/31/25 04:49 08/31/25 04:49 Micro: Microbiology 08/30/25 16:40 Blood Culture - Preliminary Blood SPECIMEN COLLECTED 08/30/25 16:39 Blood Culture - Preliminary Blood SPECIMEN COLLECTED 08/25/25 10:12 Blood Culture - Final Blood NO GROWTH AFTER 5 DAYS A&P Assessment and plan 1. End stage renal disease on dialysis: 2. Bradycardia: 3. Adrenal insufficiency: 4. Multiple myeloma: 5. Metastasis to bone: 6. Closed rib fracture: 7. Fracture of left inferior pubic ramus: 8. Acute hypoxemic respiratory failure: 9. Aspiration pneumonia: 10. Pleural effusion, bilateral: 11. Fever: 12. Septic shock: Plan: Acute hypoxic respiratory failure - Secondary to aspiration pneumonia - Secondary to fluid overload, diastolic CHF, bilateral pleural effusions CT/CT chest wo con [id number] IMPRESSION: 1. Moderate bilateral pleural effusions. 2. Fluid and gas bubbles in the central mainstem bronchi and right lower lobe bronchi which could be secondary to aspiration. Bilateral lower lobe consolidation. 3. Lytic lesion with soft tissue of the left 9th rib with possible pathologic fracture. Multiple myeloma and osseous metastatic disease are in the differential. There are other acute and chronic appearing rib fractures. No segmental rib fractures. Plan - Will moved to medical floors - IV 2 g Rocephin, Tuesday, after dialysis, for total 2 weeks - Monitor respiratory status closely - Dialysis today - Full code - Heparin for DVT prophylaxis Group G strep bacteremia - Likely secondary pneumonia - Will need 2 weeks of IV Rocephin Aspiration pneumonia - Patient overall clinically proving upgrade diet to dysphagia level 7, thin liquids - Speech therapy eval - Does not want to undergo a modified barium swallow - Patient and family understand he has a high risk of recurrent aspiration, and morbidity and mortality associated Septic shock, resolved -Secondary to aspiration pneumonia -Currently on Levophed -Current concerns for adrenal insufficiency hydrocortisone 100 mg IV push once followed by 50 mg IV every 6 hours -Fludrocortisone 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 There are some old rib fractures as well bilaterally. In the posteromedial aspect of the left 9th rib there is suggestion of a focal lytic lesion with soft tissue component measuring 1.6 x 1.1 cm with possible pathologic fracture. Soft tissues: Unremarkable. Inferior pubic rami fracture Sinus bradycardia, telemetry monitoring Deconditioning, protein calorie malnutrition - PT OT Low back pain, CT lumbar spine Bones/joints: Mild levoscoliosis. Lumbar lordosis is preserved. Posterior elements are aligned. Mild retrolisthesis T12 on L1 and L1 on L2. Grade 1 anterolisthesis L4 on L5. Diffuse osteopenia. Vertebral body heights are maintained. No acute fracture. Multilevel degenerative changes resulting in varying degrees of bilateral foraminal narrowing. No significant spinal canal stenosis. Evaluation of spinal canal contents is limited with CT technique. Bilateral sacroiliac degenerative changes. Pleural spaces: Right pleural effusion. Stomach and bowel: Colonic diverticulosis. Small duodenal diverticulum. Vasculature: Atherosclerotic changes. Soft tissues: Prevertebral and paraspinal soft tissues are unremarkable. PDMP PDMP Reviewed: Not Reviewed Attestations 2 Medical Necessity Statement*: Acute hypoxic respiratory failure, group G strep, multiple myeloma, deconditioning, aspiration Diagnoses End stage renal disease on dialysis N18.6; Z99.2 Bradycardia R00.1 Adrenal insufficiency E27.40 Multiple myeloma C90.00 Metastasis to bone C79.51 Closed rib fracture S22.39XA Fracture of left inferior pubic ramus S32.592A Acute hypoxemic respiratory failure J96.01 Aspiration pneumonia J69.0 Pleural effusion, bilateral J90 Fever R50.9 Septic shock A41.9; R65.21
[2025-08-31] MEDS: morphine 4 mg/mL SDV 1 mL 2 MG IVP (22:11)
[2025-09-01] VITALS (8 sets, daily range): BP systolic 113–136; BP diastolic 70–81; PULSE 63–102; RESP 15–19; TEMP 36.3–37; O2SAT 91–97
[2025-09-01 04:07] LABS: Hematocrit 31.3 % (37-53); Hemoglobin 9.80 g/dL (11.27-16.99); Mean Corpuscular HGB Conc 31.3 g/dL (30-55); Mean Corpuscular Hemoglobin 30.7 pg (27-33); Mean Corpuscular Volume 98.1 fl (82-101); Nucleated Red Blood Cells % 0 %; Platelet Count 134 10^3/cmm (157-399); Red Blood Count 3.19 10^6/uL (3.85-5.65); White Blood Count 3.46 10^3/uL (3.29-11.43)
[2025-09-01 04:34] LABS: Alanine Aminotransferase < 5 U/L (0-41); Albumin Level 3.5 g/dL (3.5-5.2); Alkaline Phosphatase 69 U/L (40-130); Anion Gap 17.7 (5-19); Aspartate Amino Transferase 11 U/L (0-40); Blood Urea Nitrogen 49 mg/dL (8-23); Calcium 8.5 mg/dL (8.5-10.5); Carbon Dioxide 28 mmol/L (22-29); Chloride 100 mmol/L (98-107); Globulin 2.0 g/dL (1.3-4.6); Glucose 98 mg/dL (65-115); Osmolality Calculated 305 mOsm/kg (285-295); Potassium 4.7 mmol/L (3.5-5.1); Sodium 141 mmol/L (136-145); Total Protein 5.5 g/dL (6.6-8.7)
[2025-09-01 04:48] LABS: Slide Review Slide Review Perform
[2025-09-01] MEDS: HYDROcodone-acetaminophen 5-325 mg Tablet 1 TAB PO ×3 (05:17→17:13)
[2025-09-01] MEDS: heparin 5,000 unit/mL INJ 1 mL 5000 UNIT SUBCUT ×2 (05:30→17:14)
[2025-09-01 05:46] LABS: Bacillus cereus group Not Detected (NOT DETECT); Bacillus subtillis group Not Detected (NOT DETECT); Corynebacterium Not Detected (NOT DETECT); Cutibacterium acnes (P.acnes) Not Detected (NOT DETECT); Enterococcus faecalis Not Detected (NOT DETECT); Enterococcus faecium Not Detected (NOT DETECT); Listeria Not Detected (NOT DETECT); Micrococcus Detected (NOT DETECT); Pan Candida Not Detected (NOT DETECT); Pan Gram-Negative Not Detected (NOT DETECT); Staphylococcus epidermidis Not Detected (NOT DETECT); Staphylococcus lugdunensis Not Detected (NOT DETECT); Staphylococcus species Not Detected (NOT DETECT); Streptococcus anginosus group Not Detected (NOT DETECT); Streptococcus pyogenes Not Detected (NOT DETECT); Streptococcus species Not Detected (NOT DETECT)
--- NOTE | 2025-09-01 10:06 | P.PN_ITS ---
Subjective 2 Subjective: no new c/o Medications: Reviewed: Yes Vitals/I&O/Wt Last Vital Signs Temp 97.8 F 09/01/25 08:00 Pulse 85 09/01/25 08:00 Resp 18 09/01/25 08:00 BP 119/76 09/01/25 08:00 Pulse Ox 97 09/01/25 08:00 O2 Del Method Nasal Cannula 09/01/25 01:00 O2 Flow Rate 4 09/01/25 05:40 08/31/25 09/01/25 09/01/25 22:59 06:59 14:59 Intake Total 300 / 900 100 / 1000 340 / 340 Output Total 0 / 0 0 / 0 Balance 300 / 900 100 / 1000 340 / 340 Weight last 48 hrs Weight 83.461 kg Weight 83.461 kg Weight 84.7 kg Physical Exam 2 Narrative: awake ,a lert , no distres No jvd PEERLA S1S2 RRR Lungs with decreased BS Abd , soft , non tender Ext - no edema no rash Data 09/01/25 03:51 09/01/25 03:51 Micro: Microbiology 08/30/25 16:40 Blood Culture - Preliminary Blood 08/30/25 16:39 Blood Culture - Preliminary Blood NEGATIVE TO DATE A&P Assessment and plan 1. End stage renal disease on dialysis: 1. End-stage renal disease: On MWF schedule, next HD tuesday 2. Acute respiratory failure due to volume overload , pneumonia, bilateral effusions and pulmonary edema, 3. Hyperkalemia:, placed on low K diet . 4. History of multiple myeloma with bone mets 5. Anemia: ,s/p DAMON monitor 6. sinus bradycardia Patient evaluated using audiovisual cart. Time spent 40-minute PDMP PDMP Reviewed: Not Reviewed Attestations 2 Medical Necessity Statement*: per [facility] Coding Level of Care Code Acute Code for Chg Fwd Diagnoses End stage renal disease on dialysis N18.6; Z99.2
--- NOTE | 2025-09-01 11:31 | P.PN_ITS ---
Subjective 2 Subjective: - Patient seen this morning, sitting up in a chair alert oriented x 3 comfortable, no choking, coughing, no abdominal pain, no chest pain, no shortness of breath Vitals/I&O/Wt Last Vital Signs Temp 97.8 F 09/01/25 08:00 Pulse 85 09/01/25 08:00 Resp 18 09/01/25 08:00 BP 119/76 09/01/25 08:00 Pulse Ox 97 09/01/25 08:00 O2 Del Method Nasal Cannula 09/01/25 01:00 O2 Flow Rate 4 09/01/25 08:00 08/31/25 09/01/25 09/01/25 22:59 06:59 14:59 Intake Total 300 / 900 100 / 1000 340 / 340 Output Total 0 / 0 0 / 0 Balance 300 / 900 100 / 1000 340 / 340 Weight last 48 hrs Weight 83.461 kg Weight 83.461 kg Weight 84.7 kg Physical Exam 2 Const: COMMON NORMALS: no acute distress and patient oriented x3 Resp: COMMON NORMALS: normal respiratory effort, No retractions, No use of accessory muscles and clear to auscultation bilaterally AUSCULTATION: clear to auscultation bilaterally Cardio: COMMON NORMALS: regular rate, regular rhythm, S1 normal heart sound present and S2 normal heart sound present RATE: regular rate RHYTHM: r egular rhythm HEART SOUNDS: S1 normal heart sound present and S2 normal heart sound present GI: COMMON NORMALS: Normal to inspection, nondistended, normoactive bowel sounds present and non-tender Extremity: COMMON NORMALS: no pedal edema Neuro: COMMON NORMALS: patient oriented x3 Psych: COMMON NORMALS: mental status grossly normal Data 09/01/25 03:51 09/01/25 03:51 Micro: Microbiology 08/30/25 16:40 Blood Culture - Preliminary Blood 08/30/25 16:39 Blood Culture - Preliminary Blood NEGATIVE TO DATE A&P Assessment and plan 1. End stage renal disease on dialysis: 2. Bradycardia: 3. Adrenal insufficiency: 4. Multiple myeloma: 5. Metastasis to bone: 6. Closed rib fracture: 7. Fracture of left inferior pubic ramus: 8. Acute hypoxemic respiratory failure: 9. Aspiration pneumonia: 10. Pleural effusion, bilateral: 11. Fever: 12. Septic shock: Plan: Acute hypoxic respiratory failure - Secondary to aspiration pneumonia - Secondary to fluid overload, diastolic CHF, bilateral pleural effusions CT/CT chest wo con [id number] IMPRESSION: 1. Moderate bilateral pleural effusions. 2. Fluid and gas bubbles in the central mainstem bronchi and right lower lobe bronchi which could be secondary to aspiration. Bilateral lower lobe consolidation. 3. Lytic lesion with soft tissue of the left 9th rib with possible pathologic fracture. Multiple myeloma and osseous metastatic disease are in the differential. There are other acute and chronic appearing rib fractures. No segmental rib fractures. Plan - Will moved to medical floors - IV 2 g Rocephin, Tuesday, after dialysis, for total 2 weeks - Monitor respiratory status closely - Dialysis today - Full code - Heparin for DVT prophylaxis Group G strep bacteremia - Likely secondary pneumonia - Will need 2 weeks of IV Rocephin, after dialysis - Repeat blood cultures show 1 out of 4 blood cultures positive - Contamination versus real infection - Will have to wait for identification, and isolation, and speak to infectious disease Aspiration pneumonia - Patient overall clinically proving upgrade diet to dysphagia level 7, thin liquids - Speech therapy eval - Does not want to undergo a modified barium swallow - Patient and family understand he has a high risk of recurrent aspiration, and morbidity and mortality associated Septic shock, resolved -Secondary to aspiration pneumonia -Currently on Levophed -Current concerns for adrenal insufficiency hydrocortisone 100 mg IV push once followed by 50 mg IV every 6 hours -Fludrocortisone 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 There are some old rib fractures as well bilaterally. In the posteromedial aspect of the left 9th rib there is suggestion of a focal lytic lesion with soft tissue component measuring 1.6 x 1.1 cm with possible pathologic fracture. Soft tissues: Unremarkable. Inferior pubic rami fracture Sinus bradycardia, telemetry monitoring Deconditioning, protein calorie malnutrition - PT OT Low back pain, CT lumbar spine Bones/joints: Mild levoscoliosis. Lumbar lordosis is preserved. Posterior elements are aligned. Mild retrolisthesis T12 on L1 and L1 on L2. Grade 1 anterolisthesis L4 on L5. Diffuse osteopenia. Vertebral body heights are maintained. No acute fracture. Multilevel degenerative changes resulting in varying degrees of bilateral foraminal narrowing. No significant spinal canal stenosis. Evaluation of spinal canal contents is limited with CT technique. Bilateral sacroiliac degenerative changes. Pleural spaces: Right pleural effusion. Stomach and bowel: Colonic diverticulosis. Small duodenal diverticulum. Vasculature: Atherosclerotic changes. Soft tissues: Prevertebral and paraspinal soft tissues are unremarkable. PDMP PDMP Reviewed: Not Reviewed Attestations 2 Medical Necessity Statement*: Patient requires hospitalization for respiratory failure, group G strep bacteremia Diagnoses End stage renal disease on dialysis N18.6; Z99.2 Bradycardia R00.1 Adrenal insufficiency E27.40 Multiple myeloma C90.00 Metastasis to bone C79.51 Closed rib fracture S22.39XA Fracture of left inferior pubic ramus S32.592A Acute hypoxemic respiratory failure J96.01 Aspiration pneumonia J69.0 Pleural effusion, bilateral J90 Fever R50.9 Septic shock A41.9; R65.21
[2025-09-02] VITALS (12 sets, daily range): BP systolic 108–126; BP diastolic 61–80; PULSE 65–94; RESP 16–20; TEMP 36.4–37.1; O2SAT 91–99
[2025-09-02] MEDS: morphine 4 mg/mL SDV 1 mL 2 MG IVP (00:36)
[2025-09-02 03:58] LABS: Hematocrit 29.7 % (37-53); Hemoglobin 9.30 g/dL (11.27-16.99); Mean Corpuscular HGB Conc 31.3 g/dL (30-55); Mean Corpuscular Hemoglobin 30.6 pg (27-33); Mean Corpuscular Volume 97.7 fl (82-101); Nucleated Red Blood Cells % 0 %; Platelet Count 119 10^3/cmm (157-399); Red Blood Count 3.04 10^6/uL (3.85-5.65); White Blood Count 4.16 10^3/uL (3.29-11.43)
[2025-09-02 04:18] LABS: Alanine Aminotransferase < 5 U/L (0-41); Albumin Level 3.4 g/dL (3.5-5.2); Alkaline Phosphatase 72 U/L (40-130); Anion Gap 18.4 (5-19); Aspartate Amino Transferase 12 U/L (0-40); Blood Urea Nitrogen 67 mg/dL (8-23); Calcium 8.2 mg/dL (8.5-10.5); Carbon Dioxide 27 mmol/L (22-29); Chloride 96 mmol/L (98-107); Globulin 2.0 g/dL (1.3-4.6); Glucose 91 mg/dL (65-115); Osmolality Calculated 301 mOsm/kg (285-295); Potassium 5.4 mmol/L (3.5-5.1); Sodium 136 mmol/L (136-145); Total Protein 5.4 g/dL (6.6-8.7)
[2025-09-02] MEDS: heparin 5,000 unit/mL INJ 1 mL 5000 UNIT SUBCUT ×2 (05:11→16:55)
--- NOTE | 2025-09-02 08:10 | P.PN_ITS ---
Subjective 2 Subjective: no nHow are you feelingew c/o Medications: Reviewed: Yes Vitals/I&O/Wt Last Vital Signs Temp 97.5 F L 09/02/25 08:07 Pulse 72 09/02/25 08:07 Resp 17 09/02/25 08:07 BP 110/67 09/02/25 08:07 Pulse Ox 93 09/02/25 08:07 O2 Del Method Nasal Cannula 09/02/25 08:07 O2 Flow Rate 4 09/02/25 08:00 09/01/25 09/02/25 09/02/25 22:59 06:59 14:59 Intake Total 240 / 700 Output Total 225 / 225 120 / 345 Balance 15 / 475 -120 / 355 Weight last 48 hrs Weight 85.275 kg Weight 83.461 kg Physical Exam 2 Narrative: awake ,a lert , no distres No jvd PEERLA S1S2 RRR Lungs with decreased BS Abd , soft , non tender Ext - no edema no rash Data 09/02/25 03:40 09/02/25 03:40 Micro: Microbiology 08/30/25 16:40 Blood Culture - Preliminary Blood Micrococcus Species A&P Assessment and plan 1. End stage renal disease on dialysis: 1. End-stage renal disease: On MWF schedule, next HD today 2. Acute respiratory failure due to volume overload , pneumonia, bilateral effusions and pulmonary edema, 3. Hyperkalemia:, placed on low K diet . 4. History of multiple myeloma with bone mets 5. Anemia: ,s/p DAMON monitor 6. sinus bradycardia Patient evaluated using audiovisual cart. Time spent 40-minute PDMP PDMP Reviewed: Not Reviewed Attestations 2 Medical Necessity Statement*: per medicine Coding Level of Care Code Acute Code for Chg Fwd Diagnoses End stage renal disease on dialysis N18.6; Z99.2
--- NOTE | 2025-09-02 14:21 | PC.NURSE ---
Midodrine given in prep for dialysis at the request of dialysis nurse, TEDDY Ireland.
--- NOTE | 2025-09-02 14:59 | P.PN_ITS ---
Subjective 2 Subjective: seen with family afebrile tolerating antibiotics Vitals/I&O/Wt Last Vital Signs Temp 97.7 F 09/02/25 11:27 Pulse 67 09/02/25 11:27 Resp 17 09/02/25 11:27 BP 126/68 09/02/25 11:27 Pulse Ox 94 09/02/25 11:27 O2 Del Method Nasal Cannula 09/02/25 11:27 O2 Flow Rate 4 09/02/25 10:00 09/01/25 09/02/25 09/02/25 22:59 06:59 14:59 Intake Total 240 / 700 720 / 720 Output Total 225 / 225 120 / 345 Balance 15 / 475 -120 / 355 720 / 720 Weight last 48 hrs Weight 85.275 kg Weight 83.461 kg Physical Exam 2 Const: COMMON NORMALS: no acute distress and patient oriented x3 Resp: COMMON NORMALS: normal respiratory effort, No retractions, No use of accessory muscles and clear to auscultation bilaterally AUSCULTATION: clear to auscultation bilaterally Cardio: COMMON NORMALS: regular rate, regular rhythm, S1 normal heart sound present and S2 normal heart sound present RATE: regular rate RHYTHM: r egular rhythm HEART SOUNDS: S1 normal heart sound present and S2 normal heart sound present GI: COMMON NORMALS: Normal to inspection, nondistended, normoactive bowel sounds present and non-tender Extremity: COMMON NORMALS: no pedal edema Neuro: COMMON NORMALS: patient oriented x3 Psych: COMMON NORMALS: mental status grossly normal Data 09/02/25 03:40 09/02/25 03:40 Micro: Microbiology 09/02/25 09:38 Blood Culture - Preliminary Blood SPECIMEN COLLECTED 09/02/25 09:34 Blood Culture - Preliminary Blood SPECIMEN COLLECTED 08/30/25 16:40 Blood Culture - Preliminary Blood Micrococcus Species A&P Assessment and plan 1. Gram-negative bacteremia: Plan: 1. End stage renal disease on dialysis: 2. Bradycardia: 3. Adrenal insufficiency: 4. Multiple myeloma: 5. Metastasis to bone: 6. Closed rib fracture: 7. Fracture of left inferior pubic ramus: 8. Acute hypoxemic respiratory failure: 9. Aspiration pneumonia: 10. Pleural effusion, bilateral: 11. Fever: 12. Septic shock: Plan: Acute hypoxic respiratory failure - Secondary to aspiration pneumonia - Secondary to fluid overload, diastolic CHF, bilateral pleural effusions CT/CT chest wo con [id number] IMPRESSION: 1. Moderate bilateral pleural effusions. 2. Fluid and gas bubbles in the central mainstem bronchi and right lower lobe bronchi which could be secondary to aspiration. Bilateral lower lobe consolidation. 3. Lytic lesion with soft tissue of the left 9th rib with possible pathologic fracture. Multiple myeloma and osseous metastatic disease are in the differential. There are other acute and chronic appearing rib fractures. No segmental rib fractures. Plan - IV 2 g Rocephin, Tuesday, after dialysis, for total 2 weeks - Monitor respiratory status closely - Dialysis per Nephrology - Full code - Heparin for DVT prophylaxis Group G strep bacteremia - Likely secondary pneumonia - Will need 2 weeks of IV Rocephin, after dialysis - Repeat blood cultures show 1 out of 4 blood cultures positive - Contamination versus real infection -repeat blood culture - Will have to wait for identification, and isolation, and speak to infectious disease Aspiration pneumonia - Patient overall clinically proving upgrade diet to dysphagia level 7, thin liquids - Speech therapy eval - Does not want to undergo a modified barium swallow - Patient and family understand he has a high risk of recurrent aspiration, and morbidity and mortality associated Septic shock, resolved -Secondary to aspiration pneumonia -Fludrocortisone 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 There are some old rib fractures as well bilaterally. In the posteromedial aspect of the left 9th rib there is suggestion of a focal lytic lesion with soft tissue component measuring 1.6 x 1.1 cm with possible pathologic fracture. Soft tissues: Unremarkable. Inferior pubic rami fracture Sinus bradycardia, telemetry monitoring Deconditioning, protein calorie malnutrition - PT OT Low back pain, CT lumbar spine Bones/joints: Mild levoscoliosis. Lumbar lordosis is preserved. Posterior elements are aligned. Mild retrolisthesis T12 on L1 and L1 on L2. Grade 1 anterolisthesis L4 on L5. Diffuse osteopenia. Vertebral body heights are maintained. No acute fracture. Multilevel degenerative changes resulting in varying degrees of bilateral foraminal narrowing. No significant spinal canal stenosis. Evaluation of spinal canal contents is limited with CT technique. Bilateral sacroiliac degenerative changes. Pleural spaces: Right pleural effusion. Stomach and bowel: Colonic diverticulosis. Small duodenal diverticulum. Vasculature: Atherosclerotic changes. Soft tissues: Prevertebral and paraspinal soft tissues are unremarkable. PDMP PDMP Reviewed: Not Reviewed Attestations 2 Medical Necessity Statement*: followup cultures,continue antibiotics Coding Level of Care Code 15205 Diagnoses Gram-negative bacteremia R78.81
[2025-09-02] MEDS: heparin, porcine 1,000 unit/mL INJ 10 mL 1000 UNIT IV (15:48)
[2025-09-02] MEDS: heparin, porcine 1,000 unit/mL INJ 10 mL 10000 UNIT INTRACATH (15:48)
--- NOTE | 2025-09-02 18:25 | PC.NURSE ---
This nurse retimed 1800 dose of Rocephin to 2100 as dialysis nurse says it will need to wait and pt is still currently in dialysis at this time. Oncoming nurse, Aris, notified.
[2025-09-02] MEDS: cefTRIAXone 2,000 mg SDV 2000 MG IVP (20:32)
[2025-09-03] VITALS (13 sets, daily range): BP systolic 109–151; BP diastolic 65–75; PULSE 55–84; RESP 16–18; TEMP 36.4–36.7; O2SAT 93–97
[2025-09-03] MEDS: heparin 5,000 unit/mL INJ 1 mL 5000 UNIT SUBCUT ×2 (05:09→18:01)
[2025-09-03 06:20] LABS: Hematocrit 27.5 % (37-53); Hemoglobin 8.70 g/dL (11.27-16.99); Mean Corpuscular HGB Conc 31.6 g/dL (30-55); Mean Corpuscular Hemoglobin 30.7 pg (27-33); Mean Corpuscular Volume 97.2 fl (82-101); Nucleated Red Blood Cells % 0 %; Platelet Count 132 10^3/cmm (157-399); Red Blood Count 2.83 10^6/uL (3.85-5.65); White Blood Count 3.11 10^3/uL (3.29-11.43)
[2025-09-03 06:33] LABS: Alanine Aminotransferase < 5 U/L (0-41); Albumin Level 3.8 g/dL (3.5-5.2); Alkaline Phosphatase 74 U/L (40-130); Anion Gap 17.5 (5-19); Aspartate Amino Transferase 11 U/L (0-40); Blood Urea Nitrogen 45 mg/dL (8-23); Calcium 8.1 mg/dL (8.5-10.5); Carbon Dioxide 28 mmol/L (22-29); Chloride 99 mmol/L (98-107); Globulin 1.7 g/dL (1.3-4.6); Glucose 87 mg/dL (65-115); Osmolality Calculated 299 mOsm/kg (285-295); Potassium 5.5 mmol/L (3.5-5.1); Sodium 139 mmol/L (136-145); Total Protein 5.5 g/dL (6.6-8.7)
--- NOTE | 2025-09-03 10:30 | P.PN_ITS ---
Subjective 2 Subjective: s/p HD yesterday Medications: Reviewed: Yes Vitals/I&O/Wt Last Vital Signs Temp 98.1 F 09/03/25 07:14 Pulse 74 09/03/25 08:18 Resp 16 09/03/25 08:18 BP 132/69 09/03/25 07:14 Pulse Ox 94 09/03/25 08:18 O2 Del Method Nasal Cannula 09/03/25 08:18 O2 Flow Rate 4 09/03/25 08:18 09/02/25 09/03/25 09/03/25 22:59 06:59 14:59 Intake Total 350 / 1070 360 / 1430 480 / 480 Balance 350 / 1070 360 / 1430 480 / 480 Weight last 48 hrs Weight 85.185 kg Weight 85.411 kg Weight 85.275 kg Physical Exam 2 Narrative: awake ,a lert , no distres No jvd PEERLA S1S2 RRR Lungs with decreased BS Abd , soft , non tender Ext - no edema no rash Data 09/03/25 06:04 09/03/25 06:04 Micro: Microbiology 09/02/25 09:38 Blood Culture - Preliminary Blood NEGATIVE TO DATE 09/02/25 09:34 Blood Culture - Preliminary Blood NEGATIVE TO DATE 09/02/25 11:52 Gram Stain - Final Sputum - Expectorated Sputum A&P Assessment and plan 1. End stage renal disease on dialysis: 1. End-stage renal disease: On MWF schedule, next HD tomorrow 2. Acute respiratory failure due to volume overload , pneumonia, bilateral effusions and pulmonary edema, 3. Hyperkalemia:, placed on low K diet . 4. History of multiple myeloma with bone mets 5. Anemia: ,s/p DAMON monitor 6. sinus bradycardia Patient evaluated using audiovisual cart. Time spent 40-minute PDMP PDMP Reviewed: Not Reviewed Attestations 2 Medical Necessity Statement*: per [facility] Coding Level of Care Code Acute Code for Chg Fwd Diagnoses End stage renal disease on dialysis N18.6; Z99.2
--- NOTE | 2025-09-03 14:00 | P.PN_ITS ---
Subjective 2 Subjective: Seen with family at bedside. Afebrile. Asking if he can go home Vitals/I&O/Wt Last Vital Signs Temp 97.5 F L 09/03/25 11:52 Pulse 66 09/03/25 11:52 Resp 16 09/03/25 11:52 BP 140/75 09/03/25 11:52 Pulse Ox 95 09/03/25 11:28 O2 Del Method Nasal Cannula 09/03/25 11:28 O2 Flow Rate 4 09/03/25 08:18 09/02/25 09/03/25 09/03/25 22:59 06:59 14:59 Intake Total 350 / 1070 360 / 1430 1610 / 1610 Output Total 2650 / 2650 Balance 350 / 1070 360 / 1430 -1040 / -1040 Weight last 48 hrs Weight 85 kg Weight 85.185 kg Weight 85.411 kg Weight 85.275 kg Physical Exam 2 Const: COMMON NORMALS: no acute distress and patient oriented x3 Resp: COMMON NORMALS: normal respiratory effort, No retractions, No use of accessory muscles and clear to auscultation bilaterally AUSCULTATION: clear to auscultation bilaterally Cardio: COMMON NORMALS: regular rate, regular rhythm, S1 normal heart sound present and S2 normal heart sound present RATE: regular rate RHYTHM: r egular rhythm HEART SOUNDS: S1 normal heart sound present and S2 normal heart sound present GI: COMMON NORMALS: Normal to inspection, nondistended, normoactive bowel sounds present and non-tender Extremity: COMMON NORMALS: no pedal edema Neuro: COMMON NORMALS: patient oriented x3 Psych: COMMON NORMALS: mental status grossly normal Data 09/03/25 06:04 09/03/25 06:04 Micro: Microbiology 09/02/25 09:38 Blood Culture - Preliminary Blood NEGATIVE TO DATE 09/02/25 09:34 Blood Culture - Preliminary Blood NEGATIVE TO DATE 09/02/25 11:52 Gram Stain - Final Sputum - Expectorated Sputum A&P Assessment and plan 1. Gram-negative bacteremia: Plan: 1. Gram-negative bacteremia: Plan: 1. End stage renal disease on dialysis: 2. Bradycardia: 3. Adrenal insufficiency: 4. Multiple myeloma: 5. Metastasis to bone: 6. Closed rib fracture: 7. Fracture of left inferior pubic ramus: 8. Acute hypoxemic respiratory failure: 9. Aspiration pneumonia: 10. Pleural effusion, bilateral: 11. Fever: 12. Septic shock: Plan: Acute hypoxic respiratory failure - Secondary to aspiration pneumonia - Secondary to fluid overload, diastolic CHF, bilateral pleural effusions CT/CT chest wo con [id number] IMPRESSION: 1. Moderate bilateral pleural effusions. 2. Fluid and gas bubbles in the central mainstem bronchi and right lower lobe bronchi which could be secondary to aspiration. Bilateral lower lobe consolidation. 3. Lytic lesion with soft tissue of the left 9th rib with possible pathologic fracture. Multiple myeloma and osseous metastatic disease are in the differential. There are other acute and chronic appearing rib fractures. No segmental rib fractures. Plan -IS - IV 2 g Rocephin, Tuesday, after dialysis, for total 2 weeks - Monitor respiratory status closely - Dialysis per Nephrology - Full code - Heparin for DVT prophylaxis Group G strep bacteremia - Likely secondary pneumonia - Will need 2 weeks of IV Rocephin, after dialysis - Repeat blood cultures show 1 out of 4 blood cultures positive - Contamination versus real infection -repeat blood culture --> negative to date - Will have to wait for identification, and isolation, and speak to infectious disease Aspiration pneumonia - Patient overall clinically proving upgrade diet to dysphagia level 7, thin liquids - Speech therapy eval - Does not want to undergo a modified barium swallow - Patient and family understand he has a high risk of recurrent aspiration, and morbidity and mortality associated Septic shock, resolved -Secondary to aspiration pneumonia -Fludrocortisone 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 There are some old rib fractures as well bilaterally. In the posteromedial aspect of the left 9th rib there is suggestion of a focal lytic lesion with soft tissue component measuring 1.6 x 1.1 cm with possible pathologic fracture. Soft tissues: Unremarkable. Inferior pubic rami fracture Sinus bradycardia, telemetry monitoring Deconditioning, protein calorie malnutrition - PT OT Low back pain, CT lumbar spine Bones/joints: Mild levoscoliosis. Lumbar lordosis is preserved. Posterior elements are aligned. Mild retrolisthesis T12 on L1 and L1 on L2. Grade 1 anterolisthesis L4 on L5. Diffuse osteopenia. Vertebral body heights are maintained. No acute fracture. Multilevel degenerative changes resulting in varying degrees of bilateral foraminal narrowing. No significant spinal canal stenosis. Evaluation of spinal canal contents is limited with CT technique. Bilateral sacroiliac degenerative changes. Pleural spaces: Right pleural effusion. Stomach and bowel: Colonic diverticulosis. Small duodenal diverticulum. Vasculature: Atherosclerotic changes. Soft tissues: Prevertebral and paraspinal soft tissues are unremarkable. PDMP PDMP Reviewed: Not Reviewed Attestations 2 Medical Necessity Statement*: Continue IV antibiotics follow-up cultures Coding Level of Care Code 33295 Diagnoses Gram-negative bacteremia R78.81
--- NOTE | 2025-09-03 15:57 | P.CONIM_ITS ---
Providers/Reason For Consult 2 Consulting Physician/Specialty*: Tania Barton MD/ Infectious Disease Reason for Consult*: bacteremia Requesting Physician: Edie Antonio MD Attending Physician: Edie Antonio MD Primary Care Provider: Cristian Roman MD History of Present Illness History of Present Illness Manuel Parsons is a 85 year old male with known multiple myeloma with metastases, adrenal insufficiency, chronic kidney disease on maintenance hemodialysis Tuesday. ,Currently on treatment with CyBorD with 40 mg p.o. dexamethasone once a week with last dose administered on 08/21/2025. Patient is currently admitted to the hospital since August 25, 2025 after presenting from the [place] [facility] with respiratory distress. A few days ago patient had suffered a mechanical fall at home resulting in left rib fracture. He was discharged to the [place] [facility] after this visit but returned within a day with complaints of shortness of breath and oxygen saturation dropping to 80% on room air. She was found to have bilateral pneumonia and pleural effusion. He has been on treatment with antibiotics since admission. Currently clinically improving with current line of management. Oxygen requirement down to 3 L/min. No known history of needing oxygen prior to August 23, 2025. Per chart review he was diagnosed with bilateral pneumonia in January 2025 which was attributed to aspiration. Patient denies any dejan choking episodes or coughing with food intake, he has been evaluated by speech therapy during this admission course and has been between dysphagia 4 to dysphagia 7 level diet. He has never had a formal swallow study. Hospital course has been marked by bacteremia with group G Streptococcus on 08/25/2025 and then micrococcus species isolated on 08/30/2025. Blood culture from 09/02/2025 thus remains negative to date. Review of chart shows patient has previously had blood culture positive for Pseudomonas putida and coag negative staph in January 2025 which were likely thought to be contaminants however he did receive a course of oral treatment for the same. Currently his dialysis catheter has been placed since January 2025. No recent discharge from the catheter insertion site. No issues with dialysis catheter access. States he was well prior to his fall and rib fractures. Review of Systems 2 General: Reports: 10 or more systems reviewed and unremarkable except in HPI and below Const: Denies: fever(s), chills or body aches Eyes: Denies: change in vision, blurry vision or photophobia ENMT: Reports: hoarseness; Denies: throat pain, enlarged tonsils, odynophagia or nasal congestion Card: Denies: chest pain, palpitations, irregular heart rhythm, edema, swelling of feet/ankles, lightheadedness, pre-syncope, dyspnea on exertion or orthopnea Resp: Denies: dyspnea, productive cough, non-productive cough, wheezing, stridor, pain on inspiration, change in phlegm color, hemoptysis or chest congestion GI: Denies: abdominal pain, nausea, vomiting, hematemesis, coffee ground emesis, dysphagia, heartburn, diarrhea, constipation, GI cramping, change in stool character, hematochezia or melena : Denies: flank pain, dysuria, urinary frequency, urinary urgency, urinary hesitancy or hematuria Musc: Denies: neck pain, back pain, extremity pain, joint swelling, joint warmth or deformity Neuro: Denies: headache(s), numbness in extremities, weakness in extremities, sensory changes, difficulty walking, frequent falls, dizziness, vertigo, behavioral changes, Slurred speech present or seizure-like activity Psych: Denies: anxiety, depression, suicidal ideation or homicidal ideation Endo: Denies: polyuria, polydipsia, tired all the time, cold intolerance or hot flashes Nigel/Lymph: Denies: easy bruising or easy bleeding Medications/Allergies Home Medications ?Medication ?Instructions ?Recorded ?Confirmed ?Last Taken ?Type albuterol sulfate 90 mcg/actuation 1 puff inhalation Q ID PRN 11/05/24 08/25/25 Unknown History aerosol inhaler Shortness Of Breath levothyroxine 125 mcg tablet 125 mcg PO DAILY 11/05/24 08/25/25 08/25/25 04:40 History (Levo-T) ferrous sulfate 325 mg (65 mg 325 mg PO DAILY 12/29/24 08/25/25 08/25/25 06:45 History iron) tablet polyethylene glycol 3350 17 17 g PO DAILY PRN Constipa tion 12/29/24 08/25/25 Unknown History gram/dose oral powder (Miralax) vit C 250 mg-vit E 90 mg-zinc 40 1 tab PO BID 12/29/24 08/25/25 02/23/25 History mg-copper 1 pi-eqolhs-grhrlm capsule (PreserVision AREDS-2) famotidine 20 mg tablet (Acid 20 mg PO BID 02/06/2508/25/25 06:45 History [place] [facility] (famotidine)) diphenhydramine HCl 25 mg capsule 25 mg PO TID PRN All ergic Reaction 02/09/25 08/25/25 Unknown History (Benadryl) ondansetron 4 mg disintegrating 4 mg PO Q6H PRN nausea and 02/09/25 08/25/25 Unknown Rx tablet vomiting #14 tabs sucralfate 1 gram tablet 1 g PO BID 02/09/25 08/25/25 08/25/25 06:45 History cyanocobalamin (vitamin B-12) 100 1,000 mcg (10 x 100 mcg) PO DAILY 02/17/25 08/25/25 08/25/25 06:45 Rx mcg tablet 10 days #0 tabs fludrocortisone 0.1 mg tablet 0.1 mg PO DAILY #30 tabs 02/17/25 08/25/25 08/25/25 06:45 Rx donepezil 10 mg tablet (Aricept) 10 mg PO DAILY #30 ta bs 02/27/25 08/25/25 08/25/25 06:45 Rx midodrine 5 mg tablet 5 mg PO TID #30 tabs 5 08/25/25 08/24/25 06:55 Rx trazodone 50 mg tablet 50 mg PO .qhs PRN insomnia # 14 tabs 02/27/25 08/25/25 Unknown Rx hydrocodone 5 mg-acetaminophen 325 1 tab PO Q6H PRN pa in #20 tabs 08/23/25 08/25/25 08/24/25 16:10 Rx mg tablet acetaminophen 325 mg tablet 650 mg PO QID PRN Fever Or Pain 08/25/25 08/25/25 Unknown History (Tylenol) bisacodyl 10 mg rectal suppository 10 mg IL DAILY PRN Constipation 08/25/25 08/25/25 Unknown History hydrocortisone 10 mg tablet 0.5 mg PO TID 08/25/2508/25/25 06:45 History magnesium hydroxide 400 mg/5 mL 30 ml PO DAILY PRN Con stipation 08/25/25 08/25/25 Unknown History oral suspension (Milk of Magnesia) sodium phosphates 19 gram-7 118 ml IL DAILY 08/25/25 1 10/25/24 Unknown History gram/118 mL enema (Fleet Enema) Allergies Allergy/AdvReac Type Severity Reaction Status Date / Time grass pollen Allergy Unknown Verified 08/25/25 09:51 house dust Allergy Unknown Verified 08/25/25 09:51 mold Allergy Unknown Verified 08/25/25 09:51 tree and shrub pollen Allergy Unknown Verified 08/25/25 09:51 Current Medications Generic Name Dose Route Start Last Admin Trade Name Freq PRN Reason Stop Dose Admin Hydrocodone Bitart/Acetaminophen 1 tab 08/25/25 12:37 09/01/25 17:13 Hydrocodone-Acetaminophen 5-325 Mg Tablet PO 1 tab Q4H PRN Administration MODERATE PAIN Ceftriaxone Sodium 2,000 mg 08/30/25 18:00 09/02/25 20:32 Ceftriaxone 2,000 Mg Sdv IVP 2,000 mg MoWeFr CHUNG Administration Diphenhydramine HCl 25 mg 09/01/25 09:55 09/01/25 10:55 Diphenhydramine 25 Mg Capsule PO 25 mg Q8H PRN Administration ITCHING Docusate Sodium 100 mg 08/25/25 21:00 09/02/25 20:34 Docusate Sodium 100 Mg Capsule PO Not Given BEDTIME CHUNG Fludrocortisone Acetate 0.1 mg 08/27/25 05:00 09/03/25 05:09 Fludrocortisone 0.1 Mg Tablet PO 0.1 mg DAILY CHUNG Administration Heparin Sodium (Porcine) 5,000 unit 08/26/25 18:00 09/03/25 05:09 Heparin 5,000 Unit/Ml Inj 1 Ml SUBCUT 5,000 unit Q12H CHUNG Administration Hydrocortisone 5 mg 08/28/25 21:00 09/03/25 12:47 Hydrocortisone 10 Mg Tablet PO 5 mg TID CHUNG Administration Albumin Human 12.5 gm in 50 mls @ 60 mls/hr 09/02/25 09:32 09/02/25 17:14 Albumin IV Infused PRN PRN Infusion Hypotension and/or symptomatic Levothyroxine Sodium 125 mcg 08/27/25 05:00 09/03/25 05:09 Levothyroxine 125 Mcg Tablet PO 125 mcg DAILY CHUNG Administration Midodrine 10 mg 08/28/25 18:02 09/02/25 14:18 Midodrine 5 Mg Tablet PO 10 mg TID PRN Administration for map<65, call md before use Morphine Sulfate 2 mg 08/25/25 12:37 09/02/25 00:36 Morphine 4 Mg/Ml Sdv 1 Ml IVP 2 mg Q2H PRN Administration SEVERE PAIN Sucralfate 1 gm 08/31/25 11:45 09/03/25 12:47 Sucralfate 1 Gm Tablet PO 1 gm Q12H CHUNG Administration Trazodone HCl 50 mg 08/26/25 15:53 08/31/25 20:35 Trazodone 50 Mg Tablet PO 50 mg .qhs PRN Administration INSOMNIA Zinc Acetate/Diphenhydramine 1 applic 09/01/25 09:56 09/01/25 17:16 Diphenhydramine Cream 30 Gm TOPICAL 1 applic BID PRN Administration SKIN IRRITATION PFSH Acute 2 PFSH: Medical History Gram-negative bacteremia [place] disease Pneumonia Chronic idiopathic constipation 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 Multiple myeloma GERD (gastroesophageal reflux disease) Anemia History of colon polyps Hx of echocardiogram 03/22/2024 Surgical History History of esophagogastroduodenoscopy (EGD) History of colonoscopy Hx laparoscopic cholecystectomy 06/07/2013 Hx of prostatectomy Social History Smoking and tobacco/nicotine status: never used tobacco/nicotine Alcohol intake: never Substance/Drug Use: never Household members: spouse Vitals/I&O/Wt Last Vital Signs Temp 97.9 F 09/03/25 15:34 Pulse 73 09/03/25 15:34 Resp 18 09/03/25 15:34 BP 109/65 09/03/25 15:34 Pulse Ox 95 09/03/25 15:34 O2 Del Method Nasal Cannula 09/03/25 15:34 O2 Flow Rate 3 09/03/25 15:13 09/03/25 09/03/25 09/03/25 06:59 14:59 22:59 Intake Total 360 / 1430 1610 / 1610 Output Total 2650 / 2650 Balance 360 / 1430 -1040 / -1040 Weight last 48 hrs Weight 85 kg Weight 85.185 kg Weight 85.411 kg Weight 85.275 kg Physical Exam 2 Narrative: General: No acute distress, AO x3 Patient seen via telehealth, exam deferred. Able to participate in conversation alert awake oriented x 3. Data 09/04/25 05:48 09/04/25 05:48 Micro: Microbiology 09/02/25 09:38 Blood Culture - Preliminary Blood NEGATIVE TO DATE 09/02/25 09:34 Blood Culture - Preliminary Blood NEGATIVE TO DATE 09/02/25 11:52 Gram Stain - Final Sputum - Expectorated Sputum [facility] [address] [place] [id number] YAO STEPHENSON, [employer] OFF[employer]ER NAME: Manuel Parsons LOC: [facility] U #: [id number] AGE/SX: 85/M ROOM: [facility] R E08/25/[address]: Jorge Antonio MD : 1940 BED: 2 D IS: FAX #: STATUS: ADM IN TLOC: Spec #: [id number] Altagracia: 08/25/25 Status: COMP Req #: [id number] Recd: 08/25/[address]: Mitra Cruz MD Src: Blood SpDesc: Ordered: Bcult Procedure Result Verified Site Blood Culture Final 08/29/25-1715 ONE OF FOUR BOTTLES POSITIVE DIRECT GRAM STAIN: GRAM POSITIVE COCCI IN PAIRS AND SHORT CHAINS Organism 1 Group g streptococcus Growth 1 BOTTLE Strep Typing Strep Typing Gram Stain Charge Charge for Gram Stain CRITICAL RESULT YES/NO: YES CRITICAL CALLED BY: TICO TO AND READ BACK BY: STEVENSON DATE: 08/26/25 TIME: 0456 Str grp g M.I.C. RX --------- ------ * Ampicillin <=0.06 S * Cefepime <=0.25 S * Ceftriaxone <=0.25 S * Clindamycin <=0.06 S * Erythromycin >0.5 R * Levofloxacin 0.5 S * Penicillin 0.06 S * Tetracycline <=0.5 S Vancomycin 1 S Blood Culture Preliminary (changed) 08/26/25-1622 ONE OF FOUR BOTTLES POSITIVE DIRECT GRAM STAIN: GRAM POSITIVE COCCI IN PAIRS AND SHORT CHAINS RESULTS TO FOLLOW Organism 1 Streptococcus species Growth 1 BOTTLE Gram Stain Charge Charge for Gram Stain CRITICAL RESULT YES/NO: YES CRITICAL CALLED BY: TICO TO AND READ BACK BY: STEVENSON DATE: 08/26/25 TIME: 045 Blood Culture Preliminary (changed) 08/26/25-045 ONE OF FOUR BOTTLES POSITIVE DIRECT GRAM STAIN: GRAM POSITIVE RODS RESULTS TO FOLLOW CRITICAL RESULT YES/NO: YES CRITICAL CALLED BY: TICO TO AND READ BACK BY: STEVENSON DATE: 08/26/25 TIME: 045 Blood Culture Preliminary (changed) 08/25/25-1019 SPECIMEN COLLECTED NAME: Manuel Parsons LOC: [facility] U #: [id number] AGE/SX: 85/M ROOM: [facility] R E08/25/[address]: Jorge Antonio MD : 1940 BED: 2 D IS: FAX #: STATUS: ADM IN TLOC: Spec #: [id number] Altagracia: 08/30/25 Status: RES Req #: [id number] Recd: 08/30/[address]: Maurice Mijares MD Src: Blood SpDesc: Ordered: Bcult Procedure Result Verified Site Blood Culture Preliminary 09/01/25-1318 ONE OF FOUR BOTTLES POSITIVE DIRECT GRAM STAIN: GRAM POSITIVE COCCI IN CLUSTERS IDENTIFICATION BY DIRECT PCR Organism 1 Micrococcus Species Growth 1 BOTTLE Gram Stain Charge Charge for Gram Stain CRITICAL RESULT YES/NO: YES CRITICAL CALLED BY: TICO TO AND READ BACK BY: SARA Corona DATE: 08/31/25 TIME: 2258 Blood Culture Preliminary (changed) 08/31/25-230 ONE OF FOUR BOTTLES POSITIVE DIRECT GRAM STAIN: GRAM POSITIVE COCCI IN CLUSTERS RESULTS TO FOLLOW CRITICAL RESULT YES/NO: YES CRITICAL CALLED BY: TICO TO AND READ BACK BY: SARA Corona DATE: 08/31/25 TIME: 2258 Blood Culture Preliminary (changed) 08/31/25-170 NEGATIVE TO DATE Blood Culture Preliminary (changed) 08/30/25-171 SPECIMEN COLLECTED [facility] [address] [place], [place] [address] [id number] [address]. YAO STEPHENSON, [employer] OFF[employer]ER NAME: Manuel Parsons LOC: [facility] U #: [id number] AGE/SX: 85/M ROOM: 277 R E08/25/[address]: Jorge Antonio MD : 1940 BED: 2 D IS: FAX #: STATUS: ADM IN TLOC: Spec #: [id number] Altagracia: 09/02/25 Status: RES Req #: [id number] Recd: 09/02/[address]: Jorge Antonio MD Src: Blood SpDesc: Ordered: Bcult Procedure Result Verified Site Blood Culture Preliminary 09/03/25 NEGATIVE TO DATE Blood Culture Preliminary (changed) 09/02/25 SPECIMEN COLLECTED NOTICE OF CONFIDENTIALITY The recipient of this confidential patient information is prohibited from disclosing the information to any other green party and is required to destroy the information after the stated need has been fulfilled. Anyone receiving this data in error should notify the [facility] immediately by telephone: . Thank you for your cooperation. END OF REPORT [facility] [address] [place] [id number] YAO STEPHENSON, [employer]SERV[employer] OFFICER NAME: Manuel Parsons LOC: [facility] U #: [id number] AGE/SX: 85/M ROOM: 277 R E08/25/[address]: Jorge Antonio MD : 1940 BED: 2 D IS: FAX #: STATUS: ADM IN TLOC: Spec #: [id number] Altagracia: 09/02/25 Status: RES Req #: [id number] Recd: 09/02/[address]: Jorge Antonio MD Src: Blood SpDesc: Ordered: Bcult Procedure Result Verified Site Blood Culture Preliminary 09/03/25 NEGATIVE TO DATE Blood Culture Preliminary (changed) 09/02/25 SPECIMEN COLLECTED Other data: Radiology Impressions Chest CT 08/25/25 10:32 IMPRESSION: 1. Moderate bilateral pleural effusions. 2. Fluid and gas bubbles in the central mainstem bronchi and right lower lobe bronchi which could be secondary to aspiration. Bilateral lower lobe consolidation. 3. Lytic lesion with soft tissue of the left 9th rib with possible pathologic fracture. Multiple myeloma and osseous metastatic disease are in the differential. There are other acute and chronic appearing rib fractures. No segmental rib fractures. Hip/Pelvis X-Ray 08/27/25 08:00 IMPRESSION: No acute findings. Sacrum and Coccyx X-Ray 08/27/25 08:00 IMPRESSION: Evaluation of the coccygeal area is suboptimal on lateral view due to technique. No definite fracture seen on the frontal view. Lumbar Spine CT 08/29/25 11:40 IMPRESSION: No acute lumbar spine fracture. Laboratory Results WBC 2.85 10^3/uL (3.29-11.43) L 09/04/25 05:48 RBC 2.85 10^6/uL (3.85-5.65) L 09/04/25 05:48 Hgb 8.80 g/dL (11.27-16.99) L 09/04/25 05:48 Hct 27.8 % (37-53) L 09/04/25 05:48 MCV 97.5 fl (82-101) 09/04/25 05:48 MCH 30.9 pg (27-33) 09/04/25 05:48 MCHC 31.7 g/dL (30-55) 09/04/25 05:48 RDW 15.7 % (12.1-15.1) H 09/04/25 05:48 Plt Count 109 10^3/cmm (157-399) L 09/04/25 05:48 MPV 11.2 fL (7.4-10.4) H 09/04/25 05:48 Neut % (Auto) 63.1 % 09/04/25 05:48 Lymph % (Auto) 18.6 % 09/04/25 05:48 [place] % (Auto) 8.8 % 09/04/25 05:48 Eos % (Auto) 7.7 % 09/04/25 05:48 Baso % (Auto) 0.4 % 09/04/25 05:48 Neut # (Auto) 1.80 10^3/uL (1.8-7.7) 09/04/25 05:48 Lymph # (Auto) 0.5 10^3/uL (0.8-4.8) L 09/04/25 05:48 [place] # (Auto) 0.3 10^3/uL (0.2-0.9) 09/04/25 05:48 Eos # (Auto) 0.2 10^3/uL (0.0-0.8) 09/04/25 05:48 Baso # (Auto) 0.0 10^3/uL (0.0-0.1) 09/04/25 05:48 Nucleated RBC % (auto) 0 % 09/04/25 05:48 Nucleated RBCs # 0.0 /100WBC 09/04/25 05:48 Specimen Type Arterial 08/25/25 09:53 Sample Site Radial, right 08/25/25 09:53 ABG pH 7.36 (7.35-7.45) 08/25/25 09:53 ABG pCO2 33.7 mmHg (35-45) L 08/25/25 09:53 ABG pO2 65.7 mmHg (80.0-100.0) L 08/25/25 09:53 ABG HCO3 19.2 mmol/L (22-26) L 08/25/25 09:53 ABG O2 Saturation 92.0 08/25/25 09:53 ABG Base Excess -5.5 mmol/L (-2.0-2.0) L 08/25/25 09:53 Leander Test Pos 08/25/25 09:53 A-a O2 Gradient 5.6 mmHg (5-10) 08/25/25 09:53 Hematocrit 29.8 % (42-52) L 08/25/25 09:53 Hgb O2 Saturation 89.7 % (95-100) L 08/25/25 09:53 Carboxyhemoglobin 1.2 %THgb (0.4-20.1) 08/25/25 09:53 Methemoglobin 1.3 % (0.4-1.5) 08/25/25 09:53 Total Hemoglobin 9.7 g/dL (14-18) L 08/25/25 09:53 Sodium 136.0 mmol/L (131-143) 08/25/25 09:53 Potassium 5.6 mmol/L (3.5-5.0) H 08/25/25 09:53 Glucose 81.0 mg/dL (70-115) 08/25/25 09:53 Ionized Calcium 1.1 mmol/L (1.1-1.4) 08/25/25 09:53 O2 Delivery Device Nc 08/25/25 09:53 O2 Liters/Min 7.0 % 08/25/25 09:53 Assistance Representative ID Amh 08/25/25 09:53 Sodium 137 mmol/L (136-145) 09/04/25 05:48 Potassium 6.1 mmol/L (3.5-5.1) H 09/04/25 05:48 Chloride 98 mmol/L (98-107) 09/04/25 05:48 Carbon Dioxide 27 mmol/L (22-29) 09/04/25 05:48 Anion Gap 18.1 (5-19) 09/04/25 05:48 BUN 64 mg/dL (8-23) H 09/04/25 05:48 Creatinine 7.6 mg/dL (0.7-1.2) H* 09/04/25 05:48 GFR Calculation Not Reportable 09/04/25 05:48 Glucose 91 mg/dL (65-115) 09/04/25 05:48 Calculated Osmolality 302 mOsm/kg (285-295) H 09/04/25 05:48 Lactic Acid 2.2 mmol/L (0.5-2.2) 08/26/25 10:24 Lactic Acid (Sepsis) 1.4 mmol/L (0.5-2.2) 08/26/25 14:01 Lactate 0.9 mmol/L (0.5-2.2) 08/28/25 05:05 Calcium 8.1 mg/dL (8.5-10.5) L 09/04/25 05:48 Phosphorus 3.8 mg/dL (2.5-4.5) 08/29/25 05:18 Magnesium 2.3 mg/dL (1.7-2.3) 08/29/25 05:18 Total Bilirubin 0.3 mg/dL (0.15-1.2) 09/04/25 05:48 AST 12 U/L (0-40) 09/04/25 05:48 ALT < 5 U/L (0-41) 09/04/25 05:48 Alkaline Phosphatase 86 U/L (40-130) 09/04/25 05:48 Troponin T Baseline 193 ng/L (0-15) H* 08/25/25 09:36 Troponin T 120 Minute 179.1 ng/L (0-15) H 08/25/25 11:46 Delta Troponin T -13.9 ABS# (0-10) L 08/25/25 11:46 Troponin T Hi Sens 6Hr 188.5 ng/L (0-15) H 08/25/25 14:50 Troponin T Hi Sens 6Hr Delta -4.5 ng/L (0-12) L 08/25/25 14:50 C-Reactive Protein 112.6 mg/L (0.0-4.9) H 08/29/25 05:18 NT-Pro-B Natriuret Pep 60163 pg/mL (0-450) H 08/29/25 05:18 Total Protein 5.4 g/dL (6.6-8.7) L 09/04/25 05:48 Albumin 3.6 g/dL (3.5-5.2) 09/04/25 05:48 Globulin 1.8 g/dL (1.3-4.6) 09/04/25 05:48 Procalcitonin 3.37 ng/mL (0-0.5) H 08/29/25 05:18 Random Vancomycin 8.9 ug/mL (20.0-40.0) L 08/28/25 05:05 Hep Bs Antigen Non-reactive (Nonreactive) 08/25/25 09:36 Hep Bs Antibody < 3.5 (11.5-1000) L 08/25/25 09:36 Hepatitis C Antibody Non-reactive (Nonreactive) 08/25/25 09:36 Influenza A (PCR) Negative (Negative) 08/26/25 23:00 Influenza Type B (PCR) Negative (Negative) 08/26/25 23:00 RSV (PCR) Negative (Negative) 08/26/25 23:00 SARS-CoV-2 (PCR) Negative (Negative) 08/26/25 23:00 Blood Type A Negative 08/27/25 14:37 Rho(D) Type Rh negative 08/27/25 14:37 Antibody Screen Negative 08/27/25 14:37 Crossmatch See Detail 08/27/25 14:37 A&P Assessment and plan 1. Bacteremia: 2. Bacterial infection due to Streptococcus, group . Multiple myeloma: 4. Immunocompromised state: 5. Personal history of immunosupression therapy: Plan: 85-year-old male with multiple myeloma, CKD on maintenance hemodialysis, currently on chemotherapy as noted above, currently admitted to the hospital with respiratory compromise, found to have bilateral pneumonia and bilateral pleural effusion left greater than right, in the setting of having had left- sided rib fractures recently. Hospital course notable for bacteremia with Streptococcus G initial Gram stain was identified as gram-positive rods, however eventual ID is Streptococcus G thereafter blood culture from 1128 showing micrococcus. Both cultures 1 out of 4 positive, typically would have considered contaminants, however in the setting of active infection by way of pneumonia, acute illness with respiratory compromise, could not dismiss them as contaminants based on the overall clinical picture. He has received treatment with piperacillin/tazobactam narrowed down to ceftriaxone appropriately during the course of admission. He is currently getting 2 g with dialysis Tuesday and Tuesday. Recommended total 2-week course of ceftriaxone 2 g IV 3 times a week after dialysis. Patient does not have any known history of orthopedic or cardiac hardware. Having had previous positive blood cultures in January 2025 and currently positive blood cultures, concern for potential catheter infection, however given Streptococcus and micrococcus isolates which are not an absolute indication for HD catheter removal, given patient's overall frail state, would avoid any invasive procedures for now. Plan to check surveillance cultures 2 weeks after completing IV antibiotic course. If surveillance cultures additionally return positive, the catheter would need to be considered for removal as a potential source of recurrent bacteremias. Recommend to obtain x-ray today to follow-up on previous noted effusion, rule out empyema given positive blood cultures on 08/25 and 08/30. While would have preferred to do a CAT scan for this information, patient reports it is currently painful to transition from bed to the CT table, therefore we will start with x- ray of the chest for now. He is currently afebrile. WBC count is trending towards neutropenia, likely related to recent chemotherapy. Recommend barium swallow to assess for ongoing recurrent aspiration. Will continue to follow PDMP PDMP Reviewed: Not Reviewed Consult Attestations 2 Medical Necessity Statement: Per attending note Coding Level of Care Code Acute Code for Chg Fwd High MDM includes number and complexity of problems actively addressed during encounter, amount and/or complexity of data reviewed/ordered and described risk of complication, morbidity or mortality of management as documented Diagnoses Bacteremia R78.81 Bacterial infection due to Streptococcus, group G B95.4 Multiple myeloma C90.00 Immunocompromised state D84.9 Personal history of immunosupression therapy Z92.25
--- NOTE | 2025-09-03 16:39 | XRR_ITS ---
PROCEDURE INFORMATION: Exam: XR Chest Exam date and time: 09/03/2025 5:42 PM Age: 85 years old Clinical indication: Other: Pleural effusion; Prior surgery; Surgery date: 6+ months; Surgery type: Dialysis cath; Additional info: F/up pleural effusion TECHNIQUE: Imaging protocol: Radiologic exam of the chest. Views: 1 view. COMPARISON: CR XR chest 1V portable [id number] 08/27/2025 7:55 AM FINDINGS: Tubes, catheters and devices: There is stable placement of a dialysis catheter via the right internal jugular vein. Lungs: Hazy opacities persist predominantly within the left lower hemithorax likely representing atelectasis. A curvilinear opacity is seen in the right lower hemithorax likely representing platelike atelectasis. Pleural spaces: There is a slightly increased left pleural effusion compared with 08/27/2025. Heart/Mediastinum: Unremarkable. No cardiomegaly. Bones/joints: Unremarkable. XR/XR chest 1V portable [id number] IMPRESSION: 1. The left pleural effusion is slightly more prominent today compared with 08/27/2025. 2. Probable continued left basilar atelectasis. Platelike atelectasis in the right lower hemithorax.
[2025-09-04] VITALS (12 sets, daily range): BP systolic 103–161; BP diastolic 59–93; PULSE 57–83; RESP 16–20; TEMP 36.4–36.9; O2SAT 94–97
[2025-09-04] MEDS: heparin 5,000 unit/mL INJ 1 mL 5000 UNIT SUBCUT ×2 (05:10→17:52)
[2025-09-04 06:16] LABS: Hematocrit 27.8 % (37-53); Hemoglobin 8.80 g/dL (11.27-16.99); Mean Corpuscular HGB Conc 31.7 g/dL (30-55); Mean Corpuscular Hemoglobin 30.9 pg (27-33); Mean Corpuscular Volume 97.5 fl (82-101); Nucleated Red Blood Cells % 0 %; Platelet Count 109 10^3/cmm (157-399); Red Blood Count 2.85 10^6/uL (3.85-5.65); White Blood Count 2.85 10^3/uL (3.29-11.43)
[2025-09-04 06:35] LABS: Alanine Aminotransferase < 5 U/L (0-41); Albumin Level 3.6 g/dL (3.5-5.2); Alkaline Phosphatase 86 U/L (40-130); Anion Gap 18.1 (5-19); Aspartate Amino Transferase 12 U/L (0-40); Blood Urea Nitrogen 64 mg/dL (8-23); Calcium 8.1 mg/dL (8.5-10.5); Carbon Dioxide 27 mmol/L (22-29); Chloride 98 mmol/L (98-107); Globulin 1.8 g/dL (1.3-4.6); Glucose 91 mg/dL (65-115); Osmolality Calculated 302 mOsm/kg (285-295); Potassium 6.1 mmol/L (3.5-5.1); Sodium 137 mmol/L (136-145); Total Protein 5.4 g/dL (6.6-8.7)
--- NOTE | 2025-09-04 07:02 | FL_ITS ---
WS: [id number] Exam: FL barium swallow modifd [id number] Date/Time of Exam: 09/04/2025 2:35 PM Reason For Exam: Oropharyngeal dysphagia Fluoroscopy time: 6min [id number] minutes # of spot films: Modified barium swallow test was performed in conjunction with the speech therapy service. The patient experienced some difficulty during the oropharyngeal phase of swallowing. Specifically elevating the tongue to the hard palate to initiate swallowing. The patient tolerated all consistencies of barium mixture foodstuffs without penetration or aspiration. The patient experienced difficulty swallowing the barium tablet. The tablet was retained in the piriform sinus and vallecula during the process but was finally propelled into the stomach with additional administration of honey consistency barium. FL/FL barium swallow modifd [id number] IMPRESSION: 1. 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 2. No aspiration or penetration observed. 3. The patient experienced significant difficulty when ingesting the barium tab let. See above discussion. A separate report with detailed recommendations will follow from the speech the rapy service.
--- NOTE | 2025-09-04 12:01 | PM.PN ---
Subjective Subjective: Infectious disease progress note. Patient seen in person today while undergoing dialysis. No issues at catheter insertion site. Denies any new symptoms. WBC trending down to 2.8 today. Oxygen requirement via nasal cannula at 2 L/min. Medications: Reviewed: Yes Vitals/I&O/Wt Last Vital Signs Temp 97.6 F 09/04/25 11:33 Pulse 76 09/04/25 11:33 Resp 16 09/04/25 11:33 BP 131/77 09/04/25 11:33 Pulse Ox 94 09/04/25 11:33 O2 Del Method Nasal Cannula 09/04/25 11:33 O2 Flow Rate 2 09/04/25 07:53 09/03/25 09/04/25 09/04/25 22:59 06:59 14:59 Intake Total 600 / 2210 Balance 600 / -440 Weight last 48 hrs Weight 85.638 kg Weight 85 kg Weight 85.185 kg Weight 85.411 kg Physical Exam Narrative: GENERAL: Awake, alert, oriented, in no acute distress. HEENT: Normocephalic, atraumatic, PERRLA. ABDOMEN: Soft, nontender. Nondistended. NEUROVASCULAR: Awake, alert. No focal deficits Data 09/04/25 05:48 09/04/25 05:48 Micro: Microbiology 09/02/25 11:52 Gram Stain - Final Sputum - Expectorated Sputum Sputum Culture - Preliminary Yeast species 09/02/25 09:38 Blood Culture - Preliminary Blood NEGATIVE TO DATE 09/02/25 09:34 Blood Culture - Preliminary Blood NEGATIVE TO DATE A&P Assessment and plan 1. Bacteremia: 2. Bacterial infection due to Streptococcus, group . Multiple myeloma not having achieved remission: 4. Immunocompromised state: 5. Personal history of immunosupression therapy: Plan: 85-year-old male with multiple myeloma, CKD on maintenance hemodialysis, currently on chemotherapy as noted above, currently admitted to the hospital with respiratory compromise, found to have bilateral pneumonia and bilateral pleural effusion left greater than right, in the setting of having had left-sided rib fractures recently. Hospital course notable for bacteremia with Streptococcus G initial Gram stain was identified as gram-positive rods, however eventual ID is Streptococcus G thereafter blood culture from 1128 showing micrococcus. Both cultures 1 out of 4 positive, typically would have considered contaminants, however in the setting of active infection by way of pneumonia, acute illness with respiratory compromise, could not dismiss them as contaminants based on the overall clinical picture. He has received treatment with piperacillin/tazobactam narrowed down to ceftriaxone appropriately during the course of admission. He is currently getting 2 g with dialysis Tuesday and Tuesday. Recommended total 2-week course of ceftriaxone 2 g IV 3 times a week after dialysis. Patient does not have any known history of orthopedic or cardiac hardware. Having had previous positive blood cultures in January 2025 and currently positive blood cultures, concern for potential catheter infection, however given Streptococcus and micrococcus isolates which are not an absolute indication for HD catheter removal, given patient's overall frail state, would avoid any invasive procedures for now. Plan to check surveillance cultures 2 weeks after completing IV antibiotic course. If surveillance cultures additionally return positive, the catheter would need to be considered for removal as a potential source of recurrent bacteremias. Recommend to obtain x-ray today to follow-up on previous noted effusion, rule out empyema given positive blood cultures on 08/25 and 08/30. While would have preferred to do a CAT scan for this information, patient reports it is currently painful to transition from bed to the CT table, therefore we will start with x-ray of the chest for now. He is currently afebrile. WBC count is trending towards neutropenia, likely related to recent chemotherapy. Recommend barium swallow to assess for ongoing recurrent aspiration. Will continue to follow 09/04/25 CXR with left pleural effusion. discussed all images with patient and his family at bedside. left pleural effusion suspect related to parapneumonic effusion vs related to rib fracture. Defer thoarcentesis for now iven patient is clinically improving and in effort to minimize interventions, swallow study pending this afternoon. Will plan to repeat CXR and surveillance blood cx in 3 weeks. Fup ID clinic on Oct 04 at 10am. If persistent effusion, will likely need outpatient thoracentesis. if surveillance cx +, will need catheter removal. Stable for discharge from ID standpoint with 2 weeks of iv ceftriaxone 2 g iv three times a week after dialysis. (09/02-09/16). PDMP PDMP Reviewed: Not Reviewed Attestations Medical Necessity Statement*: per admitting note Coding Level of Care Code Acute Code for [facility] Fwd Diagnoses Bacteremia R78.81 Bacterial infection due to Streptococcus, group G B95.4 Multiple myeloma not having achieved remission C90.00 Multiple myeloma remission status: not in remission Immunocompromised state D84.9 Personal history of immunosupression therapy Z92.25
--- NOTE | 2025-09-04 12:59 | P.PN_ITS ---
Subjective 2 Subjective: afebrile family at bedside swallow study completed Vitals/I&O/Wt Last Vital Signs Temp 98.1 F 09/04/25 12:16 Pulse 67 09/04/25 12:16 Resp 16 09/04/25 12:16 BP 149/88 09/04/25 12:16 Pulse Ox 94 09/04/25 11:33 O2 Del Method Nasal Cannula 09/04/25 11:33 O2 Flow Rate 2 09/04/25 07:53 09/03/25 09/04/25 09/04/25 22:59 06:59 14:59 Intake Total 600 / 2210 500 / 500 Output Total 3000 / 3000 Balance 600 / -440 -2500 / -2500 Weight last 48 hrs Weight 84 kg Weight 85.638 kg Weight 85 kg Weight 85.185 kg Weight 85.411 kg Physical Exam 2 Const: COMMON NORMALS: no acute distress and patient oriented x3 Resp: COMMON NORMALS: normal respiratory effort, No retractions, No use of accessory muscles and clear to auscultation bilaterally AUSCULTATION: clear to auscultation bilaterally Cardio: COMMON NORMALS: regular rate, regular rhythm, S1 normal heart sound present and S2 normal heart sound present RATE: regular rate RHYTHM: r egular rhythm HEART SOUNDS: S1 normal heart sound present and S2 normal heart sound present GI: COMMON NORMALS: Normal to inspection, nondistended, normoactive bowel sounds present and non-tender Extremity: COMMON NORMALS: no pedal edema Neuro: COMMON NORMALS: patient oriented x3 Psych: COMMON NORMALS: mental status grossly normal Data 09/04/25 05:48 09/04/25 05:48 Micro: Microbiology 09/02/25 11:52 Gram Stain - Final Sputum - Expectorated Sputum Sputum Culture - Preliminary Yeast species 09/02/25 09:38 Blood Culture - Preliminary Blood NEGATIVE TO DATE 09/02/25 09:34 Blood Culture - Preliminary Blood NEGATIVE TO DATE A&P Assessment and plan 1. MAURO (acute kidney injury): 2. ESRD (end stage renal disease): 3. End stage renal disease on dialysis: Plan: 1. End stage renal disease on dialysis: 2. Bradycardia: 3. Adrenal insufficiency: 4. Multiple myeloma: 5. Metastasis to bone: 6. Closed rib fracture: 7. Fracture of left inferior pubic ramus: 8. Acute hypoxemic respiratory failure: 9. Aspiration pneumonia: 10. Pleural effusion, bilateral: 11. Fever: 12. Septic shock: Plan: Acute hypoxic respiratory failure - Secondary to aspiration pneumonia - Secondary to fluid overload, diastolic CHF, bilateral pleural effusions Plan -IS - IV 2 g Rocephin, Tuesday, after dialysis, for total 2 weeks - Monitor respiratory status closely - Dialysis per Nephrology -cxr inc pleural fluid, pt declined CT due to discomfort -await speech recs Group G strep bacteremia - Likely secondary pneumonia - Will need 2 weeks of IV Rocephin, after dialysis - Repeat blood cultures show 1 out of 4 blood cultures positive - Contamination versus real infection -repeat blood culture --> negative to date - Will have to wait for identification, and isolation, appreciate ID recs Aspiration pneumonia - Patient overall clinically proving upgrade diet to dysphagia level 7, thin liquids - Speech therapy eval - Does not want to undergo a modified barium swallow - Patient and family understand he has a high risk of recurrent aspiration, and morbidity and mortality associated Septic shock, resolved -Secondary to aspiration pneumonia -Fludrocortisone 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 There are some old rib fractures as well bilaterally. In the posteromedial aspect of the left 9th rib there is suggestion of a focal lytic lesion with soft tissue component measuring 1.6 x 1.1 cm with possible pathologic fracture. Soft tissues: Unremarkable. Inferior pubic rami fracture Sinus bradycardia, telemetry monitoring Deconditioning, protein calorie malnutrition - PT OT Low back pain, CT lumbar spine Bones/joints: Mild levoscoliosis. Lumbar lordosis is preserved. Posterior elements are aligned. Mild retrolisthesis T12 on L1 and L1 on L2. Grade 1 anterolisthesis L4 on L5. Diffuse osteopenia. Vertebral body heights are maintained. No acute fracture. Multilevel degenerative changes resulting in varying degrees of bilateral foraminal narrowing. No significant spinal canal stenosis. Evaluation of spinal canal contents is limited with CT technique. Bilateral sacroiliac degenerative changes. Pleural spaces: Right pleural effusion. Stomach and bowel: Colonic diverticulosis. Small duodenal diverticulum. Vasculature: Atherosclerotic changes. Soft tissues: Prevertebral and paraspinal soft tissues are unremarkable. PDMP PDMP Reviewed: Not Reviewed Attestations 2 Medical Necessity Statement*: [employer] study Coding Level of Care Code 52998 Diagnoses MAURO (acute kidney injury) N17.9 ESRD (end stage renal disease) N18.6 End stage renal disease on dialysis N18.6; Z99.2
--- NOTE | 2025-09-04 14:37 | P.PN_ITS ---
Subjective 2 Subjective: s/p HD today Medications: Reviewed: Yes Vitals/I&O/Wt Last Vital Signs Temp 98.1 F 09/04/25 12:16 Pulse 67 09/04/25 12:16 Resp 16 09/04/25 12:16 BP 149/88 09/04/25 12:16 Pulse Ox 94 09/04/25 11:33 O2 Del Method Nasal Cannula 09/04/25 11:33 O2 Flow Rate 2 09/04/25 07:53 09/03/25 09/04/25 09/04/25 22:59 06:59 14:59 Intake Total 600 / 2210 860 / 860 Output Total 3000 / 3000 Balance 600 / -440 -2140 / -2140 Weight last 48 hrs Weight 84 kg Weight 85.638 kg Weight 85 kg Weight 85.185 kg Weight 85.411 kg Physical Exam 2 Narrative: awake ,a lert , no distres No jvd PEERLA S1S2 RRR Lungs with decreased BS Abd , soft , non tender Ext - no edema no rash Data 09/04/25 05:48 09/04/25 05:48 Micro: Microbiology 09/02/25 11:52 Gram Stain - Final Sputum - Expectorated Sputum Sputum Culture - Preliminary Yeast species 09/02/25 09:38 Blood Culture - Preliminary Blood NEGATIVE TO DATE 09/02/25 09:34 Blood Culture - Preliminary Blood NEGATIVE TO DATE A&P Assessment and plan 1. End stage renal disease on dialysis: 1. End-stage renal disease: On MWF schedule, next HD today 2. Acute respiratory failure due to volume overload , pneumonia, bilateral effusions and pulmonary edema, 3. Hyperkalemia:, placed on low K diet . 4. History of multiple myeloma with bone mets 5. Anemia: ,s/p DAMON monitor 6. sinus bradycardia Patient evaluated using audiovisual cart. Time spent 40-minute PDMP PDMP Reviewed: Not Reviewed Attestations 2 Medical Necessity Statement*: per medicine Coding Level of Care Code Acute Code for [facility] Fwd Diagnoses End stage renal disease on dialysis N18.6; Z99.2
--- NOTE | 2025-09-04 15:21 | PC.NURSE ---
carafate late due to patient in dialysis.
--- NOTE | 2025-09-04 16:26 | PC.SOCIAL ---
*IMM update* Patient received a copy of the Important Message from [employer]. Copy in chart initialed and dated.
[2025-09-04] MEDS: cefTRIAXone 2,000 mg SDV 2000 MG IVP (17:53)
[2025-09-04] MEDS: morphine 4 mg/mL SDV 1 mL 2 MG IVP (23:02)
[2025-09-05] VITALS (8 sets, daily range): BP systolic 104–134; BP diastolic 68–78; PULSE 62–80; RESP 16–18; TEMP 36.4–36.7; O2SAT 94–97
[2025-09-05] MEDS: heparin 5,000 unit/mL INJ 1 mL 5000 UNIT SUBCUT (05:35)
--- NOTE | 2025-09-05 12:29 | P.DS_ITS ---
Discharge Providers Date of Admission: 08/25/25 11:53 Date of Discharge: September 05, 2025 Attending Provider at Admission: Ashkan Raza MD Attending Provider at Discharge: Edie Antonio MD Primary Care Provider: rCistian Roman MD Diagnoses at Discharge Discharge Diagnosis 1. End stage renal disease on dialysis: Reason for Visit Reason for Visit: Low oxygen level at the shelter Hospital Course Hospital Course H&P: Manuel Parsons is a 85 year old male who was brought to the ER this morning from the shelter where he is with complaint/report of low oxygen level. Patient reports that he was feeling foggy this morning, but not able to remember a lot of stuff. He endorses being short of breath, and some cough. He denies any fever. On getting to the ER, he was found to be severely hypoxic, with oxygen saturation in the 80s. He was putting up to 8 L/min of oxygen by nasal cannula, which was able to bring his oxygen saturation above 90. Imaging studies, including CT of the chest, revealed some apparent bronchial plugging + pleural effusion. Patient noted to have aspiration pneumonia, and therefore recommended for admission for further evaluation. 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 He is dialysis due for today, which he has not yet had. Otherwise, he denies any chest pain, headache, dizziness, or any other systemic symptoms. Prior to getting to the ICU, to where he is admitted, he reports having had some he got some IV fluid over 40 bolus, plus antibiotics in the ER. In addition, 4 days ago, patient reports had a fall at the shelter, during which he suffered some fracture of the rib on the left side. Then, he was discharged home on pain control. Hospital course: Patient was admitted with multiple issues including acute kidney injury end- stage renal disease septic shock. Also acute hypoxemic respiratory failure. Consultation with nephrology and ID was done. Patient also had swallow evaluation. He was given antibiotics. Dialysis per nephrology. It is noted that he did have some pleural effusion. We have limited our CT ordered due to patient stating he did not want it. The patient also noted to have bacteremia. Blood cultures were ordered. They were also repeated. Patient also was noted to have history of malignancy as well as rib fractures. As well as pubic rami fracture. Recommended follow-up with oncologist. At time of discharge she was discharged in stable condition see discharge med rec. Physical Exam Const: COMMON NORMALS: no acute distress and patient oriented x3 Resp: COMMON NORMALS: normal respiratory effort, No retractions, No use of accessory muscles and clear to auscultation bilaterally AUSCULTATION: clear to auscultation bilaterally Cardio: COMMON NORMALS: regular rate, regular rhythm, S1 normal heart sound present and S2 normal heart sound present RATE: regular rate RHYTHM: regular rhythm HEART SOUNDS: S1 normal heart sound present and S2 normal heart sound present GI: COMMON NORMALS: Normal to inspection, nondistended, normoactive bowel sounds present and non-tender Extremity: COMMON NORMALS: no pedal edema Neuro: COMMON NORMALS: patient oriented x3 Psych: COMMON NORMALS: mental status grossly normal Discharge Data Studies Completed and Pending Completed Studies During Hospitalization Category Date Time Status CT chest wo con [id number] Stat Cat Scan 08/25/25 10:[address] lumbar spine wo con* [id number] Routine Cat Scan 08/29/25 11:40 Completed CXRP [XR chest 1V portable [id number]] Routine Exams 09/03/25 16:39 Completed FL barium swallow modifd [id number] Routine Exams 09/04/25 07:02 Completed XR chest 1V portable [id number] Routine Exams 08/27/25 07:00 Completed XR chest 1V portable [id number] Stat Exams 08/25/25 09:50 Completed XR hip BI m 5V wo/w pel* [id number] Routine Exams 08/27/25 08:00 Completed XR sacrum coccyx min 2V [id number] Routine Exams 08/27/25 08:00 Completed Pending at discharge Category Date Time Status Blood Culture Stat Lab 08/30/25 16:40 Results Blood Culture Stat Lab 09/02/25 09:38 Results Sputum Culture and Gram Stain Stat Lab 09/02/25 11:52 Results Radiology Impressions Chest CT 08/25/25 10:32 IMPRESSION: 1. Moderate bilateral pleural effusions. 2. Fluid and gas bubbles in the central mainstem bronchi and right lower lobe bronchi which could be secondary to aspiration. Bilateral lower lobe consolidation. 3. Lytic lesion with soft tissue of the left 9th rib with possible pathologic fracture. Multiple myeloma and osseous metastatic disease are in the differential. There are other acute and chronic appearing rib fractures. No segmental rib fractures. Hip/Pelvis X-Ray 08/27/25 08:00 IMPRESSION: No acute findings. Sacrum and Coccyx X-Ray 08/27/25 08:00 IMPRESSION: Evaluation of the coccygeal area is suboptimal on lateral view due to technique. No definite fracture seen on the frontal view. Lumbar Spine CT 08/29/25 11:40 IMPRESSION: No acute lumbar spine fracture. Chest X-Ray 09/03/25 16:39 IMPRESSION: 1. The left pleural effusion is slightly more prominent today compared with 08/27/2025. 2. Probable continued left basilar atelectasis. Platelike atelectasis in the right lower hemithorax. Modified Barium Swallow 09/04/25 07:02 IMPRESSION: 1. 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 2. No aspiration or penetration observed. 3. The patient experienced significant difficulty when ingesting the barium tablet. See above discussion. A separate report with detailed recommendations will follow from the speech therapy service. Laboratory Results WBC 2.85 10^3/uL (3.29-11.43) L 09/04/25 05:48 RBC 2.85 10^6/uL (3.85-5.65) L 09/04/25 05:48 Hgb 8.80 g/dL (11.27-16.99) L 09/04/25 05:48 Hct 27.8 % (37-53) L 09/04/25 05:48 MCV 97.5 fl (82-101) 09/04/25 05:48 MCH 30.9 pg (27-33) 09/04/25 05:48 MCHC 31.7 g/dL (30-55) 09/04/25 05:48 RDW 15.7 % (12.1-15.1) H 09/04/25 05:48 Plt Count 109 10^3/cmm (157-399) L 09/04/25 05:48 MPV 11.2 fL (7.4-10.4) H 09/04/25 05:48 Neut % (Auto) 63.1 % 09/04/25 05:48 Lymph % (Auto) 18.6 % 09/04/25 05:48 Tyrrell % (Auto) 8.8 % 09/04/25 05:48 Eos % (Auto) 7.7 % 09/04/25 05:48 Baso % (Auto) 0.4 % 09/04/25 05:48 Neut # (Auto) 1.80 10^3/uL (1.8-7.7) 09/04/25 05:48 Lymph # (Auto) 0.5 10^3/uL (0.8-4.8) L 09/04/25 05:48 Tyrrell # (Auto) 0.3 10^3/uL (0.2-0.9) 09/04/25 05:48 Eos # (Auto) 0.2 10^3/uL (0.0-0.8) 09/04/25 05:48 Baso # (Auto) 0.0 10^3/uL (0.0-0.1) 09/04/25 05:48 Nucleated RBC % (auto) 0 % 09/04/25 05:48 Nucleated RBCs # 0.0 /100WBC 09/04/25 05:48 Specimen Type Arterial 08/25/25 09:53 Sample Site Radial, right 08/25/25 09:53 ABG pH 7.36 (7.35-7.45) 08/25/25 09:53 ABG pCO2 33.7 mmHg (35-45) L 08/25/25 09:53 ABG pO2 65.7 mmHg (80.0-100.0) L 08/25/25 09:53 ABG HCO3 19.2 mmol/L (22-26) L 08/25/25 09:53 ABG O2 Saturation 92.0 08/25/25 09:53 ABG Base Excess -5.5 mmol/L (-2.0-2.0) L 08/25/25 09:53 Leander Test Pos 08/25/25 09:53 A-a O2 Gradient 5.6 mmHg (5-10) 08/25/25 09:53 Hematocrit 29.8 % (42-52) L 08/25/25 09:53 Hgb O2 Saturation 89.7 % (95-100) L 08/25/25 09:53 Carboxyhemoglobin 1.2 %THgb (0.4-20.1) 08/25/25 09:53 Methemoglobin 1.3 % (0.4-1.5) 08/25/25 09:53 Total Hemoglobin 9.7 g/dL (14-18) L 08/25/25 09:53 Sodium 136.0 mmol/L (131-143) 08/25/25 09:53 Potassium 5.6 mmol/L (3.5-5.0) H 08/25/25 09:53 Glucose 81.0 mg/dL (70-115) 08/25/25 09:53 Ionized Calcium 1.1 mmol/L (1.1-1.4) 08/25/25 09:53 O2 Delivery Device Nc 08/25/25 09:53 O2 Liters/Min 7.0 % 08/25/25 09:53 Development And Housing Director ID Amh 08/25/25 09:53 Sodium 137 mmol/L (136-145) 09/04/25 05:48 Potassium 6.1 mmol/L (3.5-5.1) H 09/04/25 05:48 Chloride 98 mmol/L (98-107) 09/04/25 05:48 Carbon Dioxide 27 mmol/L (22-29) 09/04/25 05:48 Anion Gap 18.1 (5-19) 09/04/25 05:48 BUN 64 mg/dL (8-23) H 09/04/25 05:48 Creatinine 7.6 mg/dL (0.7-1.2) H* 09/04/25 05:48 GFR Calculation Not Reportable 09/04/25 05:48 Glucose 91 mg/dL (65-115) 09/04/25 05:48 Calculated Osmolality 302 mOsm/kg (285-295) H 09/04/25 05:48 Lactic Acid 2.2 mmol/L (0.5-2.2) 08/26/25 10:24 Lactic Acid (Sepsis) 1.4 mmol/L (0.5-2.2) 08/26/25 14:01 Lactate 0.9 mmol/L (0.5-2.2) 08/28/25 05:05 Calcium 8.1 mg/dL (8.5-10.5) L 09/04/25 05:48 Phosphorus 3.8 mg/dL (2.5-4.5) 08/29/25 05:18 Magnesium 2.3 mg/dL (1.7-2.3) 08/29/25 05:18 Total Bilirubin 0.3 mg/dL (0.15-1.2) 09/04/25 05:48 AST 12 U/L (0-40) 09/04/25 05:48 ALT < 5 U/L (0-41) 09/04/25 05:48 Alkaline Phosphatase 86 U/L (40-130) 09/04/25 05:48 Troponin T Baseline 193 ng/L (0-15) H* 08/25/25 09:36 Troponin T 120 Minute 179.1 ng/L (0-15) H 08/25/25 11:46 Delta Troponin T -13.9 ABS# (0-10) L 08/25/25 11:46 Troponin T Hi Sens 6Hr 188.5 ng/L (0-15) H 08/25/25 14:50 Troponin T Hi Sens 6Hr Delta -4.5 ng/L (0-12) L 08/25/25 14:50 C-Reactive Protein 112.6 mg/L (0.0-4.9) H 08/29/25 05:18 NT-Pro-B Natriuret Pep 56281 pg/mL (0-450) H 08/29/25 05:18 Total Protein 5.4 g/dL (6.6-8.7) L 09/04/25 05:48 Albumin 3.6 g/dL (3.5-5.2) 09/04/25 05:48 Globulin 1.8 g/dL (1.3-4.6) 09/04/25 05:48 Procalcitonin 3.37 ng/mL (0-0.5) H 08/29/25 05:18 Random Vancomycin 8.9 ug/mL (20.0-40.0) L 08/28/25 05:05 Hep Bs Antigen Non-reactive (Nonreactive) 08/25/25 09:36 Hep Bs Antibody < 3.5 (11.5-1000) L 08/25/25 09:36 Hepatitis C Antibody Non-reactive (Nonreactive) 08/25/25 09:36 Influenza A (PCR) Negative (Negative) 08/26/25 23:00 Influenza Type B (PCR) Negative (Negative) 08/26/25 23:00 RSV (PCR) Negative (Negative) 08/26/25 23:00 SARS-CoV-2 (PCR) Negative (Negative) 08/26/25 23:00 Blood Type A Negative 08/27/25 14:37 Rho(D) Type Rh negative 08/27/25 14:37 Antibody Screen Negative 08/27/25 14:37 Crossmatch See Detail 08/27/25 14:37 Vitals Last Vital Signs Temp 97.6 F 09/05/25 11:25 Pulse 67 09/05/25 11:25 Resp 16 09/05/25 11:25 BP 115/77 09/05/25 11:25 Pulse Ox 95 09/05/25 11:25 O2 Del Method Nasal Cannula 09/05/25 11:25 O2 Flow Rate 2 09/05/25 08:53 Discharge Plan Discharge Patient Disposition: Xfer [facility] Condition: Stable Prescriptions: Continued levothyroxine [Levo-T] 125 mcg tablet 125 mcg PO DAILY albuterol sulfate 90 mcg/actuation HFA aerosol inhaler 1 puff inhalation QID PRN (Reason: Shortness Of Breath) famotidine [Acid Wildlife Biologist (famotidine)] 20 mg tablet 20 mg PO BID fludrocortisone 0.1 mg Tablet 0.1 mg PO DAILY Qty: 30 0RF cyanocobalamin (vitamin B-12) 100 mcg tablet 1,000 mcg PO DAILY 10 Days Qty: 0 0RF ferrous sulfate 325 mg (65 mg iron) Tablet 325 mg PO DAILY PreserVision AREDS-2 250-90-40-1 mg Capsule 1 tab PO BID polyethylene glycol 3350 [Miralax] 17 gram/dose powder 17 g PO DAILY PRN (Reason: Constipation) sucralfate 1 gram Tablet 1 g PO BID diphenhydramine HCl [Benadryl] 25 mg Capsule 25 mg PO TID PRN (Reason: Allergic Reaction) ondansetron 4 mg tablet,disintegrating 4 mg PO Q6H PRN (Reason: nausea and vomiting) Qty: 14 0RF donepezil [Aricept] 10 mg tablet 10 mg PO DAILY Qty: 30 0RF trazodone 50 mg tablet 50 mg PO .qhs PRN (Reason: insomnia) Qty: 14 0RF midodrine 5 mg Tablet 5 mg PO TID Qty: 30 0RF Rx Instructions: Hold for systolic blood pressure more than 110 mmHg hydrocodone-acetaminophen 5-325 mg tablet 1 tab PO Q6H PRN (Reason: pain) Qty: 20 0RF hydrocortisone 10 mg tablet 0.5 mg PO TID acetaminophen [Tylenol] 325 mg Tablet 650 mg PO QID PRN (Reason: Fever Or Pain) magnesium hydroxide [Milk of Magnesia] 400 mg/5 mL Suspension 30 ml PO DAILY PRN (Reason: Constipation) bisacodyl 10 mg Suppository 10 mg MS DAILY PRN (Reason: Constipation) Discontinued Fleet Enema 19-7 gram/118 mL Enema 118 ml MS DAILY Discharge Order = DC NOW: Discharge Order (Routine); Ordered 09/05/25 Ordered By: Edie Antonio Referrals: [facility] [Provider Group, Infectious Disease] - 10/04/25 9:00 am [facility] [Outside] Cristian Roman MD [Primary Care Provider, [facility]] Discharge Diet: Usual diet and Cardiac Discharge Activity: Resume usual activity Patient Instructions: Opioid Safety, Patient Portal & Jesika Instructions Plan of Treatment: take medicines as prescribed. O2 2L and PRN, followup with PCP and ID and nephrology Discharge Attestations Time Spent in Discharge Care*: less than 30 min Status at Discharge: Cognitive status at discharge: cognitively intact , Behavioral status at discharge: cooperative , Quality Metrics Clinical Quality Measures [ No reported AMI, CVA or VTE this stay] Coding Level of Care Code 59705 Diagnoses End stage renal disease on dialysis N18.6; Z99.2
--- NOTE | 2025-09-05 13:19 | PC.NURSE ---
This nurse called report to TEDDY Alexander at [facility] ([facility]) at 1312. Their transport person took a resident to an appt, but will be here to get pt as soon as that appt is over.
== END 2025-09-05 15:52 | disposition skilled nursing facility (03) | DRG 871 ==
LOC: ER 10:01 → ICU 12:00 → MEDSURG 08-28 16:37
PROVIDERS: Family Medicine; Hospitalist; Admitting Provider Family Medicine; Emergency Provider Emergency Medicine; PCP Family Medicine; Visit Provider Internal Medicine
DX: A41.9 Sepsis, unspecified organism (principal); J69.0 Pneumonitis due to inhalation of food and vomit; N18.6 End stage renal disease; R65.21 Severe sepsis with septic shock; C90.00 Multiple myeloma not having achieved remission; N17.9 Acute kidney failure, unspecified; D84.821 Immunodeficiency due to drugs; J90 Pleural effusion, not elsewhere classified; E27.1 Primary adrenocortical insufficiency; T45.1X5A Adverse effect of antineoplastic and immunosuppressive drugs, initial encounter; B95.4 Other streptococcus as the cause of diseases classified elsewhere; E03.9 Hypothyroidism, unspecified; C61 Malignant neoplasm of prostate; K21.9 Gastro-esophageal reflux disease without esophagitis; Z99.2 Dependence on renal dialysis; S22.42XD Multiple fractures of ribs, left side, subsequent encounter for fracture with routine healing; S32.599D Other specified fracture of unspecified pubis, subsequent encounter for fracture with routine healing; W18.30XD Fall on same level, unspecified, subsequent encounter; K22.5 Diverticulum of esophagus, acquired; K59.04 Chronic idiopathic constipation
CPT/HCPCS: 36415; 36430; 36600; 71045; 71101; 71250; 72131; 72220; 73502; 73523; 74230; 80048; 80051; 80053; 80202; 82330; 82805; 83605; 83735; 83880; 84100; 84145; 84484; 85025; 86140; 86706; 86803; 86850; 86900; 86920; 87040; 87070; 87077; 87106; 87150; 87186; 87205; 87340; 87637; 90935; 92507; 92523; 92526; 92610; 92611; 93005; 94640; 94664; 96365; 96367; 96372; 96374; 96375; 97110; 97116; 97161; 97530; 97760; 99285; J0696; J1200; J1644; J1720; J1938; J2020; J2185; J2270; J2543; J2765; J3373; J7040; J7050; J8499; J9999; L0456; P9016; P9046; P9047; Q3014; Q5105

== ENCOUNTER 2025-09-25 09:27 | Inpatient (IN) | payer MEDICARE, SELFPAY ==
[2025-09-25] VITALS (45 sets, daily range): BP systolic 89–121; BP diastolic 43–76; PULSE 74–128; RESP 14–29; TEMP 36.9–37.4; O2SAT 87–100
--- NOTE | 2025-09-25 09:28 | XR_ITS ---
WS: [id number] Portable AP upright chest, 09/25/2025 Clinical Data: Shortness of breath Comparison: Portable chest, 09/03/2025 Findings: Bilateral pleural based opacities remain. The left opacity has diminished slightly. No nodules, masses or effusions are seen. The heart is enlarged. The pulmonary vascularity is not increased. No pneumothorax is seen. The aortic arch shows tortuosity. There is a dialysis catheter on the right unchanged. Monitor leads are on the chest wall. XR/XR chest 1V portable [id number] Impression: 1. Bilateral pleural-based of opacities with decrease in left opacity. 2. Cardiomegaly and atherosclerosis..
--- OUTSIDE RECORDS SUMMARY | 2025-09-25 09:33 | XMS_ITS | Encounter Summary ---
Author Organization [facility] [employer], [facility] Address [address] [facility] [address] [place] [address] Phone Care Team Providers Care Template Storage Clerk Name Role Phone Unavailable Primary Care Provider Unavailabl e Encounter Details Date Type Department Care Team (Late st Contact Info) Description 09/09/2025 TCM in Dialysis Clinic [facility] [employer], [facility] [address] [place] [address] Melva Izaguirre NP [address] [place] [address] Social History Tobacco Use Types Packs/Day Years Used Date Smoking Tobacco: Never Assessed Sex and Gender Information Value Date Recorded Sex Assigned at Not on file Legal Sex Male 9:01 AM EDT Gender Identity Not on file Sexual Orientation Not on file documented as of this encounter Progress Notes * Melva Izaguirre NP - 09/09/2025 12:00 AM CST Patient: Manuel Parsons, 1940, 85y, M Dialysis Location: [facility] Attending Acid Cleaner: Lora Castillo Service Date: 09/09/2025 Service Provider: Melva Izaguirre NP I met face to face with the patient today. INITIAL PATIENT CONTACT Comments: pt had a fall and broke ribs and developed pneumonia, bacteremia Contact with the patient or caregiver was made or attempted within 2 business days of discharge - details in the medical record HOSPITALIZATION SUMMARY Patient has transitioned in the past 30 days from: Custodial Facility. Setting patient transitioned to: [facility] home. 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 Completed antibiotic therapy. J18.1 Lobar pneumonia, unspecified organism Comments: Take deep breaths with pillow QID. MEDICATIONS Discharge med list reviewed and reconciled - no changes. Active treatment medication orders reviewed - no changes. PHYSICAL EXAM Exam Performed. Vital Signs Reviewed. Lungs - Clear. CV - Blood pressure noted. EXT - No edema. DIALYSIS PRESCRIPTION Dry weight during admission reviewed - no change to EDW. CARE COORDINATION Comments: rehab in rest home No follow up appointments noted. IMPRESSION & PLAN Comments: 1. Bacteremia- completed antibiotic therapy. Monitor for fever, chills or hypotension 2. Pneumonia-Deep breaths QID with pillow. If nursing facility has Simv recommend every 2 hours 3. ESRD. continue MWF. Continue to monitor. Signed By: Melva Izaguirre NP on 09/09/2025 12:49:47 PM documented in this encounter Plan of Treatment Not on file documented as of this encounter Visit Diagnoses Not on filedocumented in this encounter
--- OUTSIDE RECORDS SUMMARY | 2025-09-25 09:33 | XMS_ITS | Clinical Summary ---
Author Organization [facility] Address [address] [place] [address] Phone Care Team Providers Care Attending Ambulatory Care Name Role Phone Deanna Bansal MD Primary Care Provider [phone] Allergies No known active allergies Medications cycloPHOSphamid [...] times daily before meals. Active vit C-vit T-[id number] OXIDE-lutein (PRESERVISION) 226-90-0.8-5 mg Capsule Take 1 Capsule by mouth daily. Active Active Problems Problem Noted Date Diagnosed Date ESRD (end stage renal disease) on dialysis 08/16 HTN (hypertension), benign 08/16/2025 Multiple myeloma not having achieved remission 1 10/16/2024 Mild intermittent asthma without complication Murmur, cardiac 08/16/2025 Encounters Date Type Department Care Team Description 09/09/2025 Telephone [facility] [address] [phone] Jas Canseco, Surgery 08/20/2025 External Device Data ST[facility] ABSTRACTION Provider, Abstract 08/20/2025 External Device Data [facility] ABSTRACTION Provider, Abstract 08/20/2025 External Device Data [facility] ABSTRACTION Provider, Abstract 08/19/2025 Orders Only [facility] [address] [phone] Jas Canseco DO 08/16/2025 8:00 AM IRON CUTTER Office Visit [facility] [address] [phone] Lyndon Alva PA ESRD (end stage renal disease) on dialysis ([facility]) (Primary Dx) 07/31/2025 Abstract [facility] [address] [phone] Provider, Abstract from Last 3 Months Immunizations [...] Comments Blood Pressure 136/80 08/16/2025 8:22 AM IRON CUTTER Pulse 65 08/16/2025 8:22 AM IRON CUTTER Temperature - - Respiratory Rate 18 08/16/2025 8:22 AM IRON CUTTER Oxygen Saturation 97% 08/16/2025 8:22 AM IRON CUTTER Inhaled Oxygen Concentration - - Weight - - Height 190.5 cm (6' 3 ) 08/16/2025 8:22 AM IRON CUTTER Body Mass Index - - Plan of Treatment Scheduled Procedures Name Priority Associated Diagnoses Date/Ti me CATHETER PERITONEAL INSERTION LAPAROSCOPIC ESRD (end stage renal disease) on dialysis ([facility]) 09/12/2025 2:47 PM IRON CUTTER Health Maintenance Due Date Last Done Comments DTAP/TDAP/TD VACCINES (1 - Tdap) 1959 PNEUMOCOCCAL VACCINE 50+ YEA RS (1 of 2 - PCV) 1957 ZOSTER VACCINE (1 of 2) 1957 RSV VACCINE (60+ or ) (1 - 1-dose 75+ series) 2013 INFLUENZA VACCINE (#1) 2025 09/02/2023 COVID-19 Vaccine ( - 2024-2 6 season) 2025 09/02/2023, 08/31/2022, 03/09/2022, Additional history exists Insurance MEDICARE PART A AND B Care Teams Attending Ambulatory Care Relationship Specialty Start Date End Date Deanna Bansal MD [address] [place] [address] PCP - General Family Practice 03/09/22
--- OUTSIDE RECORDS SUMMARY | 2025-09-25 09:33 | XMS_ITS | Encounter Summary ---
Author Organization [place] [employer], [facility] Address [address] [place] [address] Phone Care Team Providers Care Violent Crimes Detective Name Role Phone Unavailable Primary Care Provider Unavailabl e Encounter Details Date Type Department Care Team (Late st Contact Info) Description 09/18/2025 Treatment [facility] [employer], [facility] [address] [place] [address] Melva Izaguirre NP [address] [place] [address] End stage renal disease; Dependence on renal dialysis Social History Tobacco Use Types Packs/Day Years Used Date Smoking Tobacco: Never Assessed Sex and Gender Information Value Date Recorded Sex Assigned at Not on file Legal Sex Male 9:01 AM EDT Gender Identity Not on file Sexual Orientation Not on file documented as of this encounter Miscellaneous Notes * Dialysis Note - Melva Izaguirre NP - 09/18/2025 12:00 AM CST Patient: Manuel Parsons, 1940, 85y, M Dialysis Location: [facility] Attending Orchestra Conductor: Lora Castillo Service Date: 09/18/2025 Service Provider: Melva Izaguirre NP I met [...] in ischemia. SrCr continued to increase at [facility], dialysis was initiated. Renal US negative for hydro nephrosis: work up noted positive M spike and IgG lamda. Neg anca, maile, complement levels normal, Sr Albumin 2.2. For PD catheter in 09/2025. 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 No changes indicated. BP Sit Pre 09/16/2025: 142/94 09/13/2025: 154/91 09/11/2025: 191/101 BP Sit Post 09/16/2025: 167/77 09/13/2025: 187/108 09/11/2025: 126/91 Prescribed Tx time 09/16/2025: 4:00 09/13/2025: 4:00 09/11/2025: 4:00 Tx Duration 09/16/2025: 4:01 09/13/2025: 4:02 09/11/2025: 4:03 Missed Treatments 1 - last 30 days 1 - last 60 days 08/23 - recent FLUID ASSESSMENT Fluid status acceptable. Interdialytic weight gain acceptable. No changes indicated. EDW (kg) 09/16/2025: 88.5 09/13/2025: 88.5 09/11/2025: 90.0 Weight Pre (kg) 09/16/2025: 88.8 09/13/2025: 85.8 09/11/2025: 86.9 Weight Post (kg) 09/16/2025: 88.3 09/13/2025: 85.8 09/11/2025: 86.2 PWV (kg) 09/16/2025: -0.2 09/13/2025: -2.7 09/11/2025: -3.8 UF Rate (mL/kg/hr) 09/16/2025: 1.4 09/13/2025: 0 09/11/2025: 2 ADEQUACY ASSESSMENT Comments: Stable trend. Adequacy target met. Prescription compliance acceptable. No changes indicated. spKt/V, URR 09/09/2025: 1.76, 78.5 08/21/2025: 1.68, 76.8 07/03/2025: 1.84, 81.0 ACCESS ASSESSMENT Access Type: CVCatheter Access SubType: Tunneled Access Status: Active (In Use) - 01/28/2025 Access Location: Chest Placed: 01/28/2025 Comments: For PD catheter. Vascular access reviewed. ANEMIA ASSESSMENT Comments: On IV iron and DAMON protocol HGB, TSAT 09/11/2025: 9.9, - 09/09/2025: 9.8, 74.0 08/21/2025: 10.8, - Ferritin 09/09/2025: 851.0 06/05/2025: 1132.0 03/20/2025: 1451.0 Mircera, IVP (mcg) 09/16/2025: 100 08/19/2025: 75 08/05/2025: 100 Iron Sucrose (Venofer) (mg) 08/19/2025: 50 07/01/2025: 50 06/24/2025: 50 BMM ASSESSMENT Comments: Added calcitriol. PTH, Intact 09/09/2025: 245.0 06/05/2025: 657.0 03/06/2025: 412.0 Calcium, Phosphorus 09/09/2025: 8.0, 3.7 08/07/2025: 7.9, 5.0 07/08/2025: 7.8, - Vitamin D (Calcitriol) Oral (mcg) 09/16/2025: 0.5 09/13/2025: 0.5 09/11/2025: 0.5 NUTRITION ASSESSMENT Comments: . Potassium, Albumin 09/11/2025: 5.1, - 09/09/2025: 5.2, 3.5 08/21/2025: 5.4, - eNPCR 09/09/2025: 0.9 08/21/2025: 0.97 07/03/2025: 1.0 DIAGNOSIS Chief Complaint: N18.6 End stage renal disease Patient data updated 09/18/2025 at 12:47 PM Signed By: Melva Izaguirre NP on 09/18/2025 12:47:59 PM documented in this encounter Plan of Treatment Not on file documented as of this encounter Visit Diagnoses Diagnosis End stage renal disease Dependence on renal dialysis documented in this encounter
--- OUTSIDE RECORDS SUMMARY | 2025-09-25 09:33 | XMS_ITS | Encounter Summary ---
Author Organization [facility], [facility] Address [address] [place] [address] Phone Care Team Providers Care Bender Hand Name Role Phone Unavailable Primary Care Provider Gloria e Encounter Details Date Type Department Care Team (Late st Contact Info) Description 09/24/2025 Treatment [facility], [facility] [address] [place] [address] Lora Castillo MD [address] [place] [address] Hypertensive chronic kidney disease with stage 5 chronic kidney disease or end stage renal disease; End stage renal disease; Dependence on renal [...] Dialysis Note - Lora Castillo MD - 09/24/2025 12:00 AM CST Patient: Manuel Parsons, 1940, 85y, M Dialysis Location: [facility] Attending Finance Intern: Lora Castillo Service Date: 09/24/2025 Service Provider: Lora Castillo MD I met [...] in ischemia. SrCr continued to increase at [facility], dialysis was initiated. Renal US negative for hydro nephrosis: work up noted positive M spike and IgG lamda. Neg anca, maile, complement levels normal, Sr Albumin 2.2. He has a hx of abdominal surgeries and was told PD not likely. He is interested in HHD. His son lives next door, and his is willing to help as well as a next-door neighbor. Medications and labs reviewed. 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, unspecified Z92.25 Personal history of immunosuppression therapy Admission Date 08/25/25 Discharge Date 09/04/25 DIALYSIS PRESCRIPTION IHD 3x Week Start date: 09/20/25 Dialyzer: FX CorAL 80 BFR: 400 DFR: Manual 800 Potassium: 3.0 Sodium: 138 EDW: 88.2 Duration: 4:00 Calcium: 3.0 Bicarb: 32 Rx updated on: 09/20/2025 TREATMENT ASSESSMENT Comments: Stable BP Sit Pre 09/22/2025: 145/82 09/20/2025: 163/80 09/18/2025: 149/79 BP Sit Post 09/22/2025: 116/85 09/20/2025: 154/97 09/18/2025: 128/74 Prescribed Tx time 09/22/2025: 4:00 09/20/2025: 4:00 09/18/2025: 4:00 Tx Duration 09/22/2025: 4:04 09/20/2025: 4:10 09/18/2025: 4:06 Missed Treatments 0 - last 30 days 1 - last 60 days 08/23 - recent FLUID ASSESSMENT Fluid status acceptable. EDW (kg) 09/22/2025: 88.2 09/20/2025: 88.5 09/18/2025: 88.5 Weight Pre (kg) 09/22/2025: 92.6 09/20/2025: 88.2 09/18/2025: 88.4 Weight Post (kg) 09/22/2025: 89.1 09/20/2025: 88.2 09/18/2025: 88.4 PWV (kg) 09/22/2025: 0.9 09/20/2025: -0.3 09/18/2025: -0.1 UF Rate (mL/kg/hr) 09/22/2025: 9.7 09/20/2025: 0 09/18/2025: 0 ADEQUACY ASSESSMENT Comments: Stable trend. spKt/V, URR 09/09/2025: 1.76, 78.5 08/21/2025: 1.68, 76.8 07/03/2025: 1.84, 81.0 ACCESS ASSESSMENT Access Type: CVCatheter Access SubType: Tunneled Access Status: Active (In Use) - 01/28/2025 Access Location: Chest Placed: 01/28/2025 Comments: Interested in HHD. Vascular access reviewed. Referral made for access revision/ intervention. ANEMIA ASSESSMENT Comments: On IV iron and DAMON protocol HGB, TSAT 09/18/2025: 10.0, - 09/11/2025: 9.9, - 09/09/2025: 9.8, 74.0 Ferritin 09/09/2025: 851.0 06/05/2025: 1132.0 03/20/2025: 1451.0 Mircera, IVP (mcg) 09/16/2025: 100 08/19/2025: 75 08/05/2025: 100 Iron Sucrose (Venofer) (mg) 08/19/2025: 50 07/01/2025: 50 BMM ASSESSMENT Comments: Added calcitriol. Stable. PTH, Intact 09/09/2025: 245.0 06/05/2025: 657.0 03/06/2025: 412.0 Calcium, Phosphorus 09/09/2025: 8.0, 3.7 08/07/2025: 7.9, 5.0 07/08/2025: 7.8, - Vitamin D (Calcitriol) Oral (mcg) 09/22/2025: 0.5 09/20/2025: 0.5 09/18/2025: 0.5 NUTRITION ASSESSMENT Comments: ALbumin is better. Referred to dietitian. Potassium, Albumin 09/18/2025: 5.2, - 09/11/2025: 5.1, - 09/09/2025: 5.2, 3.5 eNPCR 09/09/2025: 0.9 08/21/2025: 0.97 07/03/2025: 1.0 PHYSICAL EXAM Exam Performed. Vital Signs Reviewed. CV - Blood pressure noted. EXT - 1+ edema. EXT - No ulcers. DIAGNOSIS Chief Complaint: N18.6 End stage renal disease Patient is stable. ADDITIONAL DIAGNOSES Additional conditions addressed during visit: I12.0 Hypertensive chronic kidney disease with stage 5 chronic kidney disease or end stage renal disease Comments: BPs at goal and after UF improve. Monitor. Patient data updated 09/24/2025 at 2:15 PM Signed By: Lora Castillo MD on 09/24/2025 2:19:00 PM documented in this encounter Plan of Treatment Not on file documented as of this encounter Visit Diagnoses Diagnosis Hypertensive chronic kidney disease with stage 5 chronic kidney disease or end stage renal disease End stage renal disease Dependence on renal dialysis documented in this encounter
--- OUTSIDE RECORDS SUMMARY | 2025-09-25 09:33 | XMS_ITS | Clinical Summary ---
Author Organization [facility] Facility Address [address] [place] [address] Care Team Providers Care Hydrotechnical Specialist Name Role Phone Unavailable Primary Care Provider Unavailrory kellogg Encounters Date Type Department Care Team Description 09/24/2025 Treatment [facility] [employer], [facility] [address] [place] [address] Lora Castillo MD Hypertensive chronic kidney disease with stage 5 chronic kidney disease or end stage renal disease; End stage renal disease; Dependence on renal dialysis 09/18/2025 Orders Only [facility], [facility] [address] [place] [address] Lora Castillo MD 09/18/[address] [place] [address] [employer], [facility] [address] [place] [address] Melva Izaguirre NP End stage renal disease; Dependence on renal dialysis 09/11/2025 Orders Only [facility] [place], [facility] [address] [place] [address] Lora Castillo MD 09/09/2025 Orders Only [facility], [facility] [address] [place] [address] Lora Castillo MD 09/09/[address] [place] [address] [employer], [facility] [address] [place] [address] Melva Izaguirre NP Lobar pneumonia; Bacteremia; End stage renal disease; Dependence on renal dialysis 09/09/2025 TCM in [facility] Clinic [address] [place] [address] [employer], [facility] [address] [place] [address] Melva Izaguirre NP 08/27/2025 [facility], [facility] [address] [place] [address] Lora Castillo MD 08/21/2025 Orders [facility], [facility] [address] [place] [address] Lora Castillo MD 08/19/2025 [facility], [facility] [address] [place] [address] Lora Castillo MD End stage renal disease; Dependence on renal dialysis 2025 Orders [facility], [facility] [address] [place] [address] Lora Castillo MD 08/12/2025 Treatment [facility], [facility] [address] [place] [address] Barbara Watkins NP End stage renal disease; Dependence on renal dialysis 08/07/2025 Orders Only [facility], [facility] [address] [place] [address] Lora Castillo MD 08/05/2025 Treatment [facility], [facility] [address] [place] [address] Barbara Watkins NP End stage renal disease; Dependence on renal dialysis 07/31/2025 Orders Only [facility], [facility] [address] [place] [address] Lora Castillo MD 07/29/[address] [place] [address] Nephrology [facility], [facility] [address] [place] [address] Lora Castillo MD End stage renal disease; Dependence on renal dialysis 07/24/2025 [facility], [facility] [address] [place] [address] Lora Castillo MD 07/22/2025 Treatment [facility] Nephrology [facility], [facility] [address] [place] [address] Barbara Watkins, CHRISTEN End stage renal disease; Dependence on renal dialysis 07/17/2025 Orders Only [facility], [facility] [address] [place] [address] Lora Castillo MD 07/10/2025 Orders Only [facility], [facility] [address] [place] [address] Lora Castillo MD 07/10/2025 [facility], [facility] [address] [place] [address] Melva Izaguirre NP End stage renal disease; Dependence on renal dialysis 07/08/2025 Orders Only [facility], [facility] [address] [place] [address] Lora Castillo MD 07/03/2025 Treatment [facility] Nephrology [facility], [facility] [address] [place] [address] Barbara Watkins NP End stage renal disease; Dependence on renal dialysis 07/03/2025 Orders Only [facility], [facility] [address] [place] [address] Lora Castillo MD 06/26/2025 Orders Only [facility], [facility] [address] [place] [address] Lora Castillo MD from Last 3 Months Social History Tobacco [...] Priority Date/Time Associated Diagnosis Comments HEMOGLOBIN Routine 09/18/2025 CO2, TOTAL Routine 09/18/2025 CHLORIDE Routine 09/18/2025 SODIUM Routine 09/18/2025 POTASSIUM Routine 09/18/2025 HEMOGLOBIN Routine 09/11/2025 CO2, TOTAL Routine 09/11/2025 CHLORIDE Routine 09/11/2025 SODIUM Routine 09/11/2025 POTASSIUM Routine 09/11/2025 SPECTRA [facility] LAB RESULTS Routine 09/09/2025 FERRITIN Routine 09/09/2025 PTH, INTACT Routine 09/09/2025 HEPATITIS B SURFACE ANTIGEN W/REFL CONFIRM Routine 09/09/2025 DIFFERENTIAL WITH WBC Routine 09/09/2025 CBC Routine 09/09/2025 PLATELET COUNT Routine 09/09/2025 CREAT CLEARANCE, NORMALIZED Routine 09/09/2025 CREATININE, URINE, TIMED Routine 09/09/2025 POST DIALYSIS BUN Routine 09/09/2025 IRON AND TIBC Routine 09/09/2025 ALBUMIN Routine 09/09/2025 ALKALINE PHOSPHATASE Routine 09/09/2025 PHOSPHATE ( PHOSPHORUS) Routine 09/09/2025 CALCIUM Routine 09/09/2025 CO2, TOTAL Routine 09/09/2025 CHLORIDE Routine 09/09/2025 SODIUM Routine 09/09/2025 BUN Routine 09/09/2025 POTASSIUM Routine 09/09/2025 HEMOGLOBIN Routine 08/27/2025 CO2, TOTAL Routine 08/27/2025 CHLORIDE Routine 08/27/2025 SODIUM Routine 08/27/2025 POTASSIUM Routine 08/27/2025 HEMOGLOBIN Routine 08/21/2025 POST DIALYSIS BUN Routine 08/21/2025 CO2, TOTAL Routine 08/21/2025 CHLORIDE Routine 08/21/2025 SODIUM Routine 08/21/2025 BUN Routine 08/21/2025 POTASSIUM Routine 08/21/2025 HEMOGLOBIN Routine 2025 POST DIALYSIS BUN Routine 2025 CO2, TOTAL Routine 2025 CHLORIDE [...] HEMATOLOGY Routine 07/10/2025 CHEMISTRY Routine 07/08/2025 SPECTRA K[facility] LAB RESULTS Routine 07/03/2025 HD KINETICS Routine 07/03/2025 POST CHEMISTRY Routine 07/03/2025 IMMUNO CHEMISTRY Routine 07/03/2025 CHEMISTRY Routine 07/03/2025 HEMATOLOGY Routine 07/03/2025 CHEMISTRY Routine 06/26/2025 HEMATOLOGY Routine 06/26/2025 from Last 3 Months Results * (ABNORMAL) Hemoglobin (09/18/2025) Only the most recent of5 resultswithin the time period is included. Hemoglobin 10.0(L) 13.2 - 14.0 g/dL [facility] 09/18/2025 09/17/2025 7:5 0 AM SUPERVISOR ROLLING ROOM Narrative Resulting Agency Comment Performing Organization Information: Site ID: [place] Name: [facility] [address] [facility] [address] [address] [address] Director: Livier Rose MD Lora Castillo MD LAB BLOOD ORDERABLES Final Re sult [facility] [address] [facility] [place] [address] * Sodium (09/18/2025) Only the most recent of7 resultswithin the time period is included. Sodium 138 135 - 146 mmol/L [facility] 09/18/2025 09/17/2025 7:5 0 AM SUPERVISOR ROLLING ROOM Narrative Resulting Agency Comment Performing Organization Information: Site ID: [place] Name: [facility] Address: [address] [place] [phone] Director: Livier Rose MD Lora Castillo MD LAB BLOOD ORDERABLES Final Re sult Performing Organization Address [facility] Co de Phone Number [facility] [address] [place] [phone] * Potassium (09/18/2025) Only the most recent of7 resultswithin the time period is included. Potassium 5.2 3.5 - 5.3 mmol/L [facility] 09/18/2025 09/17/2025 7:5 0 AM SUPERVISOR ROLLING ROOM Narrative Resulting Agency Comment Performing Organization Information: Site ID: JOHN Name: [facility] Address: [address] [place] [phone] Director: Livier Rose MD us Lora Castillo MD LAB BLOOD ORDERABLES Final Re sult Performing Organization Address City/[facility] Co de Phone Number [facility] [address] [place] [phone] * Chloride (09/18/2025) Only the most recent of7 resultswithin the time period is included. Chloride 104 98 - 110 mmol/L [facility] 09/18/2025 09/17/2025 7:5 0 AM SUPERVISOR ROLLING ROOM Narrative Resulting Agency Comment Performing Organization Information: Site ID: JOHN Name: [facility] Address: [address] [place] [phone] Director: Livier Rose MD us Lroa Castillo MD LAB BLOOD ORDERABLES Final Re sult Performing Organization Address [facility] Co de Phone Number [facility] [id number] [place] [phone] * CO2 (09/18/2025) Only the most recent of7 resultswithin the time period is included. Bicarbonate (CO2) 22 20 - 29 mmol/L [facility] 09/18/2025 09/17/2025 7:5 0 AM SUPERVISOR ROLLING ROOM Narrative Resulting Agency Comment Performing Organization Information: Site ID: JOHN Name: [facility] Address: [address] [place] [phone] Director: Livier Rose MD us Lora Castillo MD LAB BLOOD ORDERABLES Final Re sult Performing Organization Address [facility] de Phone Number [facility] [address] * (ABNORMAL) Iron and TIBC (09/09/2025) Only the most recent of2 resultswithin the time period is included. Iron, Total 114 50 - 180 mcg/dL [facility] TIBC 155(L) 250 - 425 mcg/dL (calc) [facility] Iron Saturation (TSat) 74(H) 20 - 48 % (calc) [facility] 09/09/2025 09/07/2025 2:2 0 PM SUPERVISOR ROLLING ROOM Narrative Resulting Agency Comment Performing Organization Information: Site ID: JOHN Name: [facility] Address: [address] [place] [phone] Director: Livier Rose MD us Lora Castillo MD LAB BLOOD ORDERABLES Final Re sult Performing Organization Address [facility] Co de Phone Number [facility] [address] * (ABNORMAL) Creatinine Clearance, Normalized (09/09/2025) Only the most recent of2 resultswithin the time period is included. Creatinine 8.47(H) 0.70 - 1.22 mg/dL [facility] Comment: Verified by repeat analysis. Creatinine, Urine Timed OTH mg/dL [facility] Comment: TEST NOT PERFORMED. An electronic test request was transmitted, but no specimen was received by the laboratory. Test has been cancelled. Volume, (UVOL) OTH mL [facility] Comment: TEST NOT PERFORMED. An electronic test request was transmitted, but no specimen was received by the laboratory. Test has been cancelled. 09/09/2025 09/07/2025 2:2 0 PM SUPERVISOR ROLLING ROOM Narrative Resulting Agency Comment Performing Organization Information: Site ID: [place] [facility] Address: [address] [place] [phone] Director: Livier Rose MD Lroa Castillo MD LAB [id number] SOLICITED RESULTS Final Result [facility] [address] * Hepatitis B Surface Ag w/Reflex Confirmation (09/09/2025) Only the most recent of2 resultswithin the time period is included. Pathologist [facility] Hep B Surface Antigen NON-REACTI VE NON-REACTI VE [facility] Comment: For additional information, please refer to http://[email or web address].TapSurge/faq/[email or web address] (This link is being provided for informational/ educational purposes only.) 09/09/2025 09/07/2025 2:2 0 PM SUPERVISOR ROLLING ROOM Narrative Resulting Agency Comment Performing Organization Information: Site ID: [place] [facility]: [facility] Address: [address] [place] [phone] Director: Livier Rose MD Lora Castillo MD LAB BLOOD ORDERABLES Final Re sult Performing Organization Address City/[facility]/ZIP Co de Phone Number [facility] [address] [place] [address] * [facility] Lab Results (09/09/2025) Only the most recent of2 resultswithin the time period is included. eNPCR 0.90 [facility] nPCR_HD 0.98 [facility] spKt/V Got 1.74 [facility] ge Center eKt/V (Tattersall) 1.54 [facility] eKdrt/V 1.51 [facility] WSTDKT/V 1.7 [facility] eKt/V Gotch 1.51 [facility] e Center PCR 60.36 [facility] spKt/V (Daugirdas II) 1.76 [facility] 09/09/2025 09/09/2025 [facility] [place] [place] LAB BLOOD ORDERABLES Final Result Performing Organization Address [facility] Co de Phone Number [facility] Center Contact Performing lab Unknown, [place] * Post Dialysis BUN (09/09/2025) Only the most recent of4 resultswithin the time period is included. BUN Post Dialysis 14 7 - 25 mg/dL [facility] 09/09/2025 09/07/2025 2:2 0 PM SUPERVISOR ROLLING ROOM Narrative Resulting Agency Comment Performing Organization Information: Site ID: [place] Name: [facility] Address: [address] [place] [address] Director: Livier Rose MD Lora Castillo MD LAB BLOOD ORDERABLES Final Re sult Performing Organization Address City/[facility]/ZIP Co de Phone Number [facility] [address] [place] [address] * Creatinine, urine, timed (09/09/2025) Only the most recent of2 resultswithin the time period is included. Volume, (UVOL) OTH mL [facility] Comment: TEST NOT PERFORMED. An electronic test request was transmitted, but no specimen was received by the laboratory. Test has been cancelled. Creatinine, Urine Timed OTH mg/dL [facility] Comment: TEST NOT PERFORMED. An electronic test request was transmitted, but no specimen was received by the laboratory. Test has been cancelled. 09/09/2025 09/07/2025 2:2 0 PM SUPERVISOR ROLLING ROOM Narrative Resulting Agency Comment Performing Organization Information: Site ID: [place] Name: [facility] Address: [address] [place] [address] Director: Livier Rose MD Lora Castillo MD LAB URINE ORDERABLES Final Re sult [facility] [address] [place], [place] [address] [address] * (ABNORMAL) Differential with WBC (09/09/2025) Only the most recent of2 resultswithin the time period is included. WBC 4.1 3.8 - 10.8 Thousand/u L [facility] Neutrophils Absolute 3,173 1,500 - 7,800 cells/uL [facility] Lymphocytes Absolute 595(L) 850 - 3,900 cells/uL [facility] Monocytes Absolute 242 200 - 950 cells/uL [facility] Eosinophils Absolute 70 15 - 500 cells/uL [facility] Basophils Absolute 21 0 - 200 cells/uL [facility] Neutrophils Relative 77.4 % [facility] Lymphocytes 14.5 % [facility] Monocytes 5.9 % [facility] Eosinophils 1.7 % [facility] Basophils Relative 0.5 % [facility] 09/09/2025 09/07/2025 2:2 0 PM SUPERVISOR ROLLING ROOM Narrative Resulting Agency Comment Performing Organization Information: Site ID: JOHN Name: [facility] Address: [address] [place] [phone] Director: Livier Rose MD Lora Castillo MD LAB BLOOD ORDERABLES Final Re sult Performing Organization Address [facility] Co de Phone Number [facility] [address] [place] [phone] * (ABNORMAL) Platelet count (09/09/2025) Only the most recent of2 resultswithin the time period is included. Platelets 125(L) 140 - 400 Thousand/uL [facility] 09/09/2025 09/07/2025 2:2 0 PM SUPERVISOR ROLLING ROOM Narrative Resulting Agency Comment Performing Organization Information: Site ID: JOHN Name: [facility] Address: [address] [place] [phone] Director: Livier Rose MD Lora Castillo MD LAB BLOOD ORDERABLES Final Re sult Performing Organization Address [facility] Co de Phone Number [facility] [address] [place] [phone] * (ABNORMAL) CBC (09/09/2025) Only the most recent of2 resultswithin the time period is included. WBC 4.1 3.8 - 10.8 Thousand/uL [facility] RBC 3.11(L) 4.20 - 5.80 Million/uL [facility] Hemoglobin 9.8(L) 13.2 - 14.0 g/dL [facility] Hematocrit 29.7(L) 39.4 - 51.1 % [facility] MCV 95.5 81.4 - 101.7 fL [facility] MCH 31.5 27.0 - 33.0 pg [facility] MCHC 33.0 31.6 - 35.4 g/dL [facility] RDW 16.2(H) 11.0 - 15.0 % [facility] 09/09/2025 09/07/2025 2:2 0 PM SUPERVISOR ROLLING ROOM Narrative Resulting Agency Comment Performing Organization Information: Site ID: JOHN Name: [facility] Address: [address] [place] [phone] Director: Livier Rose MD Lora Castillo MD LAB BLOOD ORDERABLES Final Re sult Performing Organization Address [facility] Co de Phone Number [facility] [address] [place] [phone] * (ABNORMAL) BUN (09/09/2025) Only the most recent of3 resultswithin the time period is included. BUN 65(H) 7 - 25 mg/dL [facility] 09/09/2025 09/07/2025 2:2 0 PM SUPERVISOR ROLLING ROOM Narrative Resulting Agency Comment Performing Organization Information: Site ID: JOHN Name: [facility] Address: [address] [place] [phone] Director: Livier Rose MD Lora Castillo MD LAB BLOOD ORDERABLES Final Re sult Performing Organization Address [facility] de Phone Number [facility] [address] [place] [phone] * Phosphorus (09/09/2025) Only the most recent of2 resultswithin the time period is included. Phosphorus 3.7 3.0 - 4.3 mg/dL [facility] 09/09/2025 09/07/2025 2:2 0 PM SUPERVISOR ROLLING ROOM Narrative Resulting Agency Comment Performing Organization Information: Site ID: JOHN Name: [facility] Address: [address] [place] [phone] Director: Livier Rose MD us Lora E Castillo MD LAB BLOOD ORDERABLES Final Re sult Performing Organization Address City/[facility]/ZIP Co de Phone Number [facility] [address] [place] [address] * Alkaline phosphatase (09/09/2025) Alkaline Phosphatase 108 35 - 144 U/L [facility] 09/09/2025 09/07/2025 2:2 0 PM SUPERVISOR ROLLING ROOM Narrative Resulting Agency Comment Performing Organization Information: Site ID: JOHN Name: [facility] Address: [address] [place] [phone] Director: Livier Rose MD us Lora Castillo MD LAB BLOOD ORDERABLES Final Re sult Performing Organization Address [facility] de Phone Number [facility] [address] [place] [phone] * (ABNORMAL) PTH, Intact (09/09/2025) Parathyroid Hormone, Intact 245(H) 16 - 77 pg/mL [facility] Comment: Interpretive Guide Intact PTH Calcium ------- Normal Parathyroid Normal Normal Hypoparathyroidism Low or Low Normal Low Hyperparathyroidism Primary Normal or High High Secondary High Normal or Low Tertiary High High Non-Parathyroid Hypercalcemia Low or Low Normal High 09/09/2025 09/07/2025 2:2 0 PM SUPERVISOR ROLLING ROOM Narrative Resulting Agency Comment Performing Organization Information: Site ID: JOHN Name: [facility] Address: [address] [place] [phone] Director: Livier Rose MD us Lora Castillo MD LAB BLOOD ORDERABLES Final Re sult Performing Organization Address City/[facility] Co de Phone Number [facility] [address] [place] [phone] * (ABNORMAL) Ferritin (09/09/2025) Ferritin 851(H) 24 - 380 ng/mL [facility] 09/09/2025 09/07/2025 2:2 0 PM SUPERVISOR ROLLING ROOM Narrative Resulting Agency Comment Performing Organization Information: Site ID: JOHN Name: [facility] Address: [address] [place] [phone] Director: Livier Rose MD Lroa Castillo MD LAB BLOOD ORDERABLES Final Re sult Performing Organization Address [facility] Co de Phone Number [facility] [address] [place] [phone] * (ABNORMAL) Calcium (09/09/2025) Only the most recent of2 resultswithin the time period is included. Calcium 8.0(L) 8.6 - 10.0 mg/dL [facility] 09/09/2025 09/07/2025 2:2 0 PM SUPERVISOR ROLLING ROOM Narrative Resulting Agency Comment Performing Organization Information: Site ID: JOHN Name: [facility] Address: [address] [place] [phone] Director: Livier Rose MD us Lora Castillo MD LAB BLOOD ORDERABLES Final Re sult Performing Organization Address [facility] Co de Phone Number [facility] [address] [place] [phone] * (ABNORMAL) Albumin (09/09/2025) Only the most recent of2 resultswithin the time period is included. Albumin 3.5(L) 3.6 - 5.1 g/dL [facility] 09/09/2025 09/07/2025 2:2 0 PM SUPERVISOR ROLLING ROOM Narrative Resulting Agency Comment Performing Organization Information: Site ID: [place] Name: [facility] Address: [address] [facility] [place] [address] Director: Livier Rose MD us Lora Castillo MD LAB BLOOD ORDERABLES Final Re sult Performing Organization Address [facility] de Phone Number [facility] [address] [facility] [place] [address] * (ABNORMAL) HEMATOLOGY (07/31/2025) Only the most recent of6 resultswithin the time period is included. Hemoglobin 9.4(L) 14.0 - 18.0 g/dL [facility] Hemoglobin x 3 28.2(L) 42.0 - 54.0 % [facility] 07/31/2025 08/01/2025 9:3 6 AM CDT Narrative [employer] - 08/01/2025 Unless otherwise specified, test(s) performed at: [facility], [address] [place] [phone] CONTINUOUS PICKLING LINE PICKLER HELPER: Al Heard M.D. For any questions, please call customer service at FREQUENCY:OTHER Resulting Agency Comment Specimen source: Blood us Lora Castillo MD LAB BLOOD ORDERABLES Final Re sult Performing Organization Address [facility] de Phone Number [facility] See order comments or contact performing lab Unknown, [place] * (ABNORMAL) [facility] (07/31/2025) Only the most recent of7 resultswithin the time period is included. Sodium 145 136 - 145 mEq/L [facility] Potassium 4.7 3.5 - 5.1 mEq/L [facility] Chloride 111(H) 96 - 108 mEq/L [facility] Bicarbonate (CO2) 23 22 - 29 mEq/L [facility] 07/31/2025 08/01/2025 9:0 2 AM CDT Narrative [facility] - 08/01/2025 Unless otherwise specified, test(s) performed at: [facility], [address] [place] [address] CONTINUOUS PICKLING LINE PICKLER HELPER: Al Heard M.D. For any questions, please call customer service at FREQUENCY:OTHER Resulting Agency Comment Specimen source: Serum us Lora Castillo MD LAB BLOOD ORDERABLES Final Re sult Performing Organization Address [facility] de Phone Number [facility] See order comments or contact performing lab Unknown, [place] * (ABNORMAL) HD KINETICS (07/03/2025) Pathologist [facility] [place] % Urea Reduction 81(H) 65 - 80 % [facility] 07/03/2025 07/05/2025 11: 23 AM CDT Narrative Resulting Agency Comment Specimen source: Plasma us Lora Castillo MD LAB BLOOD ORDERABLES Final Re sult Performing Organization Address [facility] de Phone Number [facility] See order comments or contact performing lab Unknown, [place] * POST CHEMISTRY (07/03/2025) Pathologist [facility] [place] BUN Post Dialysis 11 6 - 19 mg/dL [facility] 07/03/2025 07/05/2025 11: 23 AM CDT Narrative [facility] - 07/05/2025 Unless otherwise specified, test(s) performed at: [facility], [address] [place], [place] [id number] CONTINUOUS PICKLING LINE PICKLER HELPER: Al Heard M.D. For any questions, please call customer service at FREQUENCY:MONTHLY Resulting Agency Comment Specimen source: Plasma us Lora Castillo MD LAB BLOOD ORDERABLES Final Re sult Performing Organization Address [facility] Co de Phone Number [facility] See order comments or contact performing lab Unknown, [place] * IMMUNO CHEMISTRY (07/03/2025) Pathologist [facility] [place] Hep B Surface Ag Negative Negative [facility] 07/03/2025 07/04/2025 10: 55 AM CDT Narrative [facility] - 07/04/2025 Unless otherwise specified, test(s) performed at: [facility], [address] [place] [phone] CONTINUOUS PICKLING LINE PICKLER HELPER: Al Heard M.D. For any questions, please call customer service at FREQUENCY:MONTHLY Resulting Agency Comment Specimen source: Serum us Lora Castillo MD LAB BLOOD ORDERABLES Final Re sult [email or web address] See order comments or contact performing lab Unknown, [place] from Last 3 Months Insurance Medicare
--- OUTSIDE RECORDS SUMMARY | 2025-09-25 09:33 | XMS_ITS | Encounter Summary ---
Author Organization [facility], [facility] Address [address] [place] [address] Phone Care Team Providers Care Trial Management Associate Name Role Phone Unavailable Primary Care Provider Unavailabl e Encounter Details Date Type Department Care Team (Late st Contact Info) Description 09/18/2025 Orders Only [facility], [facility] [address] [place] [address] Lora Castillo MD [address] [place] [address] Social History Tobacco Use Types [...] Date/Time Associated Diagnosis Comments HEMOGLOBIN Routine 09/18/2025 SODIUM Routine 09/18/2025 POTASSIUM Routine 09/18/2025 CHLORIDE Routine 09/18/2025 CO2, TOTAL Routine 09/18/2025 documented in this encounter Results * (ABNORMAL) Hemoglobin (09/18/2025) Hemoglobin 10.0(L) 13.2 - 14.0 g/dL [facility] 09/18/2025 09/17/2025 7:5 0 AM BILINGUAL LEGAL ASSISTANT Narrative Resulting Agency Comment Performing Organization Information: Site ID: JOHN Name: [facility] Address: [address] [place] [phone] Director: Livier Rose MD us Lora Castillo MD LAB BLOOD ORDERABLES Final Re sult Performing Organization Address City/[facility]/ZIP Co de Phone Number [facility] [address] [place] [address] * CO2 (09/18/2025) Bicarbonate (CO2) 22 20 - 29 mmol/L [facility] 09/18/2025 09/17/2025 7:5 0 AM BILINGUAL LEGAL ASSISTANT Narrative Resulting Agency Comment Performing Organization Information: Site ID: JOHN Name: [facility] Address: [address] [place] [phone] Director: Livier Rose MD us Lora Castillo MD LAB BLOOD ORDERABLES Final Re sult Performing Organization Address [facility]/ZIP Co de Phone Number [facility] [id number] [place] [phone] * Chloride (09/18/2025) Chloride 104 98 - 110 mmol/L [facility] 09/18/2025 09/17/2025 7:5 0 AM BILINGUAL LEGAL ASSISTANT Narrative Resulting Agency Comment Performing Organization Information: Site ID: JOHN Name: [facility] Address: [address] [place] [phone] Director: Livier Rose MD us Lora Castillo MD LAB BLOOD ORDERABLES Final Re sult Performing Organization Address City/[facility]/ZIP Co de Phone Number [facility] [address] [place] [address] * Sodium (09/18/2025) Sodium 138 135 - 146 mmol/L [facility] 09/18/2025 09/17/2025 7:5 0 AM BILINGUAL LEGAL ASSISTANT Narrative Resulting Agency Comment Performing Organization Information: Site ID: JOHN Name: [facility] Address: [address] [place], [place] [address] [place] [address] Director: Livier Rose MD Lora Castillo MD LAB BLOOD ORDERABLES Final Re sult Performing Organization Address [facility] Co de Phone Number [facility] [address] [place] [address] * Potassium (09/18/2025) Potassium 5.2 3.5 - 5.3 mmol/L [facility] 09/18/2025 09/17/2025 7:5 0 AM BILINGUAL LEGAL ASSISTANT Narrative Resulting Agency Comment Performing Organization Information: Site ID: JOHN Name: [facility]le Address: [address] [place] [phone] Director: Livier Rose MD Lora Castillo MD LAB BLOOD ORDERABLES Final Re sult Performing Organization Address [facility] Co de Phone Number [facility] [address] [place] [address] documented in this encounter Visit Diagnoses Not on filedocumented in this encounter
--- NOTE | 2025-09-25 09:39 | W.ED.SOB ---
HPI - SOB/Dyspnea General: Chief Complaint: Shortness of Breath/Dyspnea Stated Complaint: difficulty breathing, unresponsive at times Time Seen by Provider: 09/25/25 09:33 History of Present Illness: HPI Narrative: 85-year-old man with a history of end-stage renal disease on dialysis, recent admission to the hospital for pneumonia, currently receiving IV antibiotics at dialysis, multiple myeloma, anemia, GERD, constipation, Who presents to the emergency room with worsening shortness of breath. Family states he has been out of the [place] [facility] after discharge for about 2 to 3 days now. He was transferred to [place] [facility] after [facility]. He steadily gotten worse since then. They are afraid he may have aspirated again. He was admitted for multiple issues including kidney injury and septic shock. I cannot determine what antibiotic he was discharged on from the hospital from the discharge summary. He is hypoxemic on presentation and requiring some oxygen. He is not on oxygen at home. Family states he was somewhat confused earlier. He is a bit somnolent now but will awaken and answer questions appropriately. No known fever. No vomiting. Related Data Home Medications ?Medication ?Instructions ?Recorded ?Confirmed albuterol sulfate 90 mcg/actuation 1 puff inhalation QID PRN 11/05/24 08/25/25 aerosol inhaler Shortness Of Breath levothyroxine 125 mcg tablet 125 mcg PO DAILY 11/05/24 08/25/25 (Levo-T) ferrous sulfate 325 mg (65 mg 325 mg PO DAILY 12/29/24 08/25/25 iron) tablet polyethylene glycol 3350 17 17 g PO DAILY PRN Constipation 12/29/24 08/25/25 gram/dose oral powder (Miralax) vit C 250 mg-vit E 90 mg-zinc 40 1 tab PO BID 12/29/24 08/25/25 mg-copper 1 [id number] capsule (PreserVision AREDS-2) famotidine 20 mg tablet (Acid 20 mg PO BID 02/06/25 08/25/25 Data Miner (famotidine)) diphenhydramine HCl 25 mg capsule 25 mg PO TID PRN Allergic Reaction 02/09/25 08/25/25 (Benadryl) sucralfate 1 gram tablet 1 g PO BID 02/09/25 08/25/25 acetaminophen 325 mg tablet 650 mg PO QID PRN Fever Or Pain 08/25/25 08/25/25 (Tylenol) bisacodyl 10 mg rectal suppository 10 mg FL DAILY PRN Constipation 08/25/25 08/25/25 hydrocortisone 10 mg tablet 0.5 mg PO TID 08/25/25 08/25/25 magnesium hydroxide 400 mg/5 mL 30 ml PO DAILY PRN Constipation 08/25/25 08/25/25 oral suspension (Milk of Magnesia) Previous Rx's ?Medication ?Instructions ?Recorded ondansetron 4 mg disintegrating 4 mg PO Q6H PRN nausea and 02/09/25 tablet vomiting #14 tabs cyanocobalamin (vitamin B-12) 100 1,000 mcg (10 x 100 mcg) PO DAILY 02/17/25 mcg tablet 10 days #0 tabs fludrocortisone 0.1 mg tablet 0.1 mg PO DAILY #30 tabs 02/17/25 donepezil 10 mg tablet (Aricept) 10 mg PO DAILY #30 tabs 02/27/25 midodrine 5 mg tablet 5 mg PO TID #30 tabs 02/27/25 trazodone 50 mg tablet 50 mg PO .qhs PRN insomnia #14 tabs 02/27/25 hydrocodone 5 mg-acetaminophen 325 1 tab PO Q6H PRN pain #20 tabs 08/23/25 mg tablet cyclophosphamide 50 mg capsule 600 mg (12 x 50 mg) PO DAILY #60 09/20/25 caps Allergies Allergy/AdvReac Type Severity Reaction Status Date / Time grass pollen Allergy Unknown Verified 09/25/25 09:48 house dust Allergy Unknown Verified 09/25/25 09:48 mold Allergy Unknown Verified 09/25/25 09:48 tree and shrub pollen Allergy Unknown Verified 09/25/25 09:48 Review of Systems Narrative: Constitutional symptoms: Negative except as documented in HPI. Skin symptoms: Negative except as documented in HPI. Eye symptoms: Negative except as documented in HPI. ENMT symptoms: Negative except as documented in HPI. Respiratory symptoms: Negative except as documented in HPI. Cardiovascular symptoms: Negative except as documented in HPI. Gastrointestinal symptoms: Negative except as documented in HPI. Genitourinary symptoms: Negative except as documented in HPI. Musculoskeletal symptoms: Negative except as documented in HPI. Neurologic symptoms: Negative except as documented in HPI. Psychiatric symptoms: Negative except as documented in HPI. Endocrine symptoms: Negative except as documented in HPI. PFSH ED PFSH: Medical History (Updated 09/25/25 @ 12:27 by Mitra Cruz MD) Gram-negative bacteremia Gentry disease Pneumonia Chronic idiopathic constipation 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 Multiple myeloma GERD (gastroesophageal reflux disease) Anemia History of colon polyps Hx of echocardiogram 03/22/2024 Surgical History History of esophagogastroduodenoscopy (EGD) History of colonoscopy Hx laparoscopic cholecystectomy 06/07/2013 Hx of prostatectomy Social History Smoking and tobacco/nicotine status: never used tobacco/nicotine Alcohol intake: never Substance/Drug Use: never Household members: spouse Physical Exam Narrative: EXAM NARRATIVE: General: Somnolent but arousable, no acute distress. Skin: Warm, dry. Head: Normocephalic, atraumatic. Neck: Supple, trachea midline. Eye: Extraocular movements are intact. Ears, nose, mouth and throat: mucosa moist. Cardiovascular: Regular, Normal peripheral perfusion. Respiratory: Coarse breath sounds, tachypnea, mild increased work of breathing. Diminished breath sounds at the bases Gastrointestinal: Soft, Nontender, Non distended Musculoskeletal: Normal ROM, no deformity. Neurological: Somnolent, arousable, oriented, No focal neurological deficit observed. Psychiatric: Cooperative, appropriate mood & affect. Course Vital Signs: Vital signs: Vital Signs Temperature 98.4 F 09/25/25 09:36 Pulse Rate 111 H 09/25/25 12:08 Respiratory Rate 23 H 09/25/25 12:08 Blood Pressure 98/62 09/25/25 12:08 Pulse Oximetry 93 09/25/25 12:08 Oxygen Delivery Me thod Simple Mask 09/25/25 12:08 Oxygen Flow Rate 8 09/25/25 12:08 MDM - SOB/Dyspnea Medical Decision Making Medical decision making Patient's reason for coming to the emergency room: Shortness of breath Social determinants: Patient is retired. Family is present. Recently [facility] [place] [facility]. I reviewed the patient's medical record. 85-year-old man with a history of end-stage renal disease on dialysis, recent admission to the hospital for pneumonia, currently receiving IV antibiotics at dialysis, multiple myeloma, anemia, GERD, constipation. I reviewed the patient's discharge summary I patient is not on anticoagulation. I cannot determine what antibiotic he was sent home on or has been receiving at dialysis. Reviewed the patient's current home meds Alternate historians: None Differential diagnosis for patient with shortness of breath includes but is not limited to and based on the above HPI, review of systems and physical exam: Pneumonia. Bronchitis. Asthma or COPD with acute exacerbation. Acute coronary syndrome / AR. Pulmonary embolism. Anxiety. Congestive heart failure. Viral infections including influenza and Covid-19. Atrial fibrillation. Anxiety. Pleural effusion. Pneumothorax. Orders placed to evaluate differential diagnosis based on the above differential, HPI and physical exam EKG: Time 9:45 AM. Rate 116. Sinus tachycardia, nonspecific ST changes, no ectopy, normal FL & QRS intervals, This was reviewed and interpreted by myself the ER physician at 9:50 AM. Repeat EKG: Time 10:40 AM. Rate 116. Sinus tachycardia, nonspecific ST changes, no ectopy, normal FL & QRS intervals, This was reviewed and interpreted by myself the ER physician at 10:45 AM. No significant changes from EKG done previously today in the emergency room. Chest x-ray: Bilateral pleural-based opacities with decrease in the left opacity. Cardiomegaly. Atherosclerosis. This was reviewed and interpreted by myself the emergency room physician. I also reviewed the radiology report. Lab Review: Laboratory results were reviewed and interpreted by myself the emergency room physician. No leukocytosis. No anemia. Renal function is as expected in this dialysis patient with a creatinine of 4.7. Potassium is not elevated. Lactic acid is mildly elevated at 1.7. Assessment of risk: Level of risk: High risk patient. Multiple comorbidities. End-stage renal disease on dialysis. Being treated for bacteremia. Now with worsening hypoxemia Hospitalization considerations: Patient is being admitted to the hospital. Reexamination: Patient has very high requirements when he sleeps. Still with some requirement while awake. Family says he has not been on oxygen at home. Apparently he may have it somewhere there but has not been on it. Consultation: I spoke with Dr. Allen with the hospitalist service who agrees to admission Assessment and plan: Hypoxemic respiratory failure Pneumonia Pleural effusions End-stage renal disease on dialysis - 500 mL liter normal saline bolus as the patient has been tachycardic. Limited fluid resuscitation as he is on dialysis. -Broad-spectrum antibiotics were administered. Patient has been on cefepime. Has 3 treatments left. I gave Zyvox and meropenem here in the emergency room. However his white count is not elevated and his lactate is not elevated. Empiric sepsis treatment -Sepsis quality measures. -Lactic acid with a reflex was ordered. -Blood cultures were ordered. ?I reevaluated the patient's volume status after sepsis fluids were given. -I discussed the patient with the hospitalist on-call who is admitting the patient. - Discussed findings and plan with patient. Answered any questions. - All laboratory values were reviewed and interpreted personally by myself, the ER physician - All imaging was reviewed and interpreted personally by myself, the ER physician. - Evaluation and treatment of this problem were appropriate in the emergency setting Critical Care: -I spent a total of 45 minutes of critical care time managing the patient, independent of any other practitioner. -The time involved in the performance of separately reportable procedures was not counted towards critical care time. Lab Data 09/25/25 09:44 09/25/25 09:44 Labs/Radiology: Radiology Impressions Chest X-Ray 09/25/25 09:28 Impression: 1. Bilateral pleural-based of opacities with decrease in left opacity. 2. Cardiomegaly and atherosclerosis.. Laboratory Results WBC 5.90 10^3/uL (3.29-11.43) 09/25/25 09:44 RBC 3.53 10^6/uL (3.85-5.65) L 09/25/25 09:44 Hgb 10.70 g/dL (11.27-16.99) L 09/25/25 09:44 Hct 34.6 % (37-53) L 09/25/25 09:44 MCV 98.0 fl (82-101) 09/25/25 09:44 MCH 30.3 pg (27-33) 09/25/25 09:44 MCHC 30.9 g/dL (30-55) 09/25/25 09:44 RDW 15.9 % (12.1-15.1) H 09/25/25 09:44 Plt Count 117 10^3/cmm (157-399) L 09/25/25 09:44 MPV 10.6 fL (7.4-10.4) H 09/25/25 09:44 Neut % (Auto) 64.2 % 09/25/25 09:44 Lymph % (Auto) 23.7 % 09/25/25 09:44 Carlisle % (Auto) 5.6 % 09/25/25 09:44 Eos % (Auto) 5.9 % 09/25/25 09:44 Baso % (Auto) 0.3 % 09/25/25 09:44 Neut # (Auto) 3.78 10^3/uL (1.8-7.7) 09/25/25 09:44 Lymph # (Auto) 1.4 10^3/uL (0.8-4.8) 09/25/25 09:44 Carlisle # (Auto) 0.3 10^3/uL (0.2-0.9) 09/25/25 09:44 Eos # (Auto) 0.4 10^3/uL (0.0-0.8) 09/25/25 09:44 Baso # (Auto) 0.0 10^3/uL (0.0-0.1) 09/25/25 09:44 Nucleated RBC % (auto) 0 % 09/25/25 09:44 Nucleated RBCs # 0.0 /100WBC 09/25/25 09:44 Specimen Type Arterial 09/25/25 09:39 Sample Site Radial, left 09/25/25 09:39 ABG pH 7.44 (7.35-7.45) 09/25/25 09:39 ABG pCO2 35.5 mmHg (35-45) 09/25/25 09:39 ABG pO2 51.4 mmHg (80.0-100.0) L 09/25/25 09:39 ABG PO2/FiO2 Ratio 244 09/25/25 09:39 ABG HCO3 24.0 mmol/L (22-26) 09/25/25 09:39 ABG O2 Saturation 88.4 09/25/25 09:39 ABG Base Excess 0.1 mmol/L (-2.0-2.0) 09/25/25 09:39 Leander Test Pos 09/25/25 09:39 A-a O2 Gradient 7.2 mmHg (5-10) 09/25/25 09:39 Hematocrit 33.4 % (42-52) L 09/25/25 09:39 Hgb O2 Saturation 86.4 % (95-100) L 09/25/25 09:39 Carboxyhemoglobin 1.4 %THgb (0.4-20.1) 09/25/25 09:39 Methemoglobin 0.9 % (0.4-1.5) 09/25/25 09:39 Total Hemoglobin 10.9 g/dL (14-18) L 09/25/25 09:39 Sodium 137.0 mmol/L (131-143) 09/25/25 09:39 Potassium 4.3 mmol/L (3.5-5.0) 09/25/25 09:39 Glucose 88.0 mg/dL (70-115) 09/25/25 09:39 Ionized Calcium 1.2 mmol/L (1.1-1.4) 09/25/25 09:39 O2 Delivery Device Room air 09/25/25 09:39 FiO2 21.0 % 09/25/25 09:39 Healthcare Science Specialist ID [place] 09/25/25 09:39 Sodium 137 mmol/L (136-145) 09/25/25 09:44 Potassium 4.3 mmol/L (3.5-5.1) 09/25/25 09:44 Chloride 99 mmol/L (98-107) 09/25/25 09:44 Carbon Dioxide 26 mmol/L (22-29) 09/25/25 09:44 Anion Gap 16.3 (5-19) 09/25/25 09:44 BUN 15 mg/dL (8-23) 09/25/25 09:44 Creatinine 4.7 mg/dL (0.7-1.2) H 09/25/25 09:44 GFR Calculation Not Reportable 09/25/25 09:44 Glucose 88 mg/dL (65-115) 09/25/25 09:44 Calculated Osmolality 284 mOsm/kg (285-295) L 09/25/25 09:44 Lactic Acid 1.7 mmol/L (0.5-2.2) 09/25/25 09:44 Calcium 8.8 mg/dL (8.5-10.5) 09/25/25 09:44 Total Bilirubin 0.4 mg/dL (0.15-1.2) 09/25/25 09:44 AST 13 U/L (0-40) 09/25/25 09:44 ALT 6 U/L (0-41) 09/25/25 09:44 Alkaline Phosphatase 118 U/L (40-130) 09/25/25 09:44 Troponin T Baseline 223 ng/L (0-15) H* 09/25/25 09:44 Troponin T 60 Minute 212.4 ng/L (0-15) H 09/25/25 10:54 Delta Troponin T -10.6 ABS# (0-10) L 09/25/25 10:54 C-Reactive Protein 128.7 mg/L (0.0-4.9) H 09/25/25 09:44 NT-Pro-B Natriuret Pep 86776 pg/mL (0-450) H 09/25/25 09:44 Total Protein 5.6 g/dL (6.6-8.7) L 09/25/25 09:44 Albumin 3.7 g/dL (3.5-5.2) 09/25/25 09:44 Globulin 1.9 g/dL (1.3-4.6) 09/25/25 09:44 Procalcitonin 1.09 ng/mL (0-0.5) H 09/25/25 09:44 Influenza A (PCR) Negative (Negative) 09/25/25 09:44 Influenza Type B (PCR) Negative (Negative) 09/25/25 09:44 RSV (PCR) Negative (Negative) 09/25/25 09:44 SARS-CoV-2 (PCR) Negative (Negative) 09/25/25 09:44 All radiology interpretation(s) finalized by discharge Discharge Plan Discharge Patient Disposition: Admitted As Inpatient Clinical Impression: Acute hypoxemic respiratory failure, Pneumonia, Encephalopathy Condition: Stable Coding Level of Care Code ED [employer] for Venancio Downey
--- NOTE | 2025-09-25 09:45 | ECG_ITS ---
[employer] Test Date: 2025-09-25 Pat Name: Manuel Parsons Department: Room: Gender: Male Canvassing Manager: : 1940 Requested By: Mitra Triplett Order Number: [id number] Reading MD: FADI MORLILO Measurements Intervals [place] Rate: 116 P: 45 AL: 209 QRS: -83 QRSD: 75 T: 44 QT: 310 QTc: 431 Interpretive Statements SINUS TACHYCARDIA LOW QRS VOLTAGE IN EXTREMITY LEADS [QRS DEFLECTION < 0.5 mV IN LIMB LEADS] POSSIBLE ANTERIOR MYOCARDIAL INFARCTION , OF INDETERMINATE AGE [30 ms Q WAVE IN V3/V4, OR R < 0.2 mV IN V4] INFERIOR MYOCARDIAL INFARCTION , PROBABLY OLD [40+ ms Q WAVE AND/OR ST/T ABNORMALITY IN II/aVF] Compared to ECG 08/27/2025 12:24:59 Low QRS voltage now present Myocardial infarct finding now present Sinus bradycardia no longer present First degree AV block no longer present Electronically Signed On 09-25-2025 20:15:47 ENGINEERING DOCUMENTATION SPECIALIST by FADI MORILLO [email or web address]
[2025-09-25 09:50] LABS: ABG PCO2 35.5 mmHg (35-45); ABG PH Result 7.44 (7.35-7.45); Alveolar-Arterial Oxygen Gradi 7.2 mmHg (5-10); Arterial Blood Gas Hematocrit 33.4 % (42-52); Blood Gas Allen Test Pos; Blood Gas Operator Identificat WALCI; Blood Gas Sample Site Radial, left; Blood Gas Sample Type Arterial; Carboxyhemoglobin 1.4 %THgb (0.4-20.1); Glucose Level-ABG 88.0 mg/dL (70-115); HCO3 ABG 24.0 mmol/L (22-26); Ionized Calcium Level - ABG 1.2 mmol/L (1.1-1.4); Methemoglobin 0.9 % (0.4-1.5); Oxygen Saturation ABG 88.4; PO2 ABG 51.4 mmHg (80.0-100.0); PO2 FiO2 Ratio Arterial Blood 244; Potassium Level - ABG 4.3 mmol/L (3.5-5.0); Sodium Level - ABG 137.0 mmol/L (131-143)
--- NOTE | 2025-09-25 09:50 | PC.NURSE ---
pt reports unable to provide urine sample, states does not produce urine d/t dialysis
--- NOTE | 2025-09-25 10:15 | PC.NURSE ---
pt's oxygen sat decreased to 87% while sleeping, applied 2L NC, increased to 90%
--- NOTE | 2025-09-25 10:23 | PC.NURSE ---
pt primarily mouth breathing, oxygen 82% while sleeping despite increasing NC to 4L. changed NC to simple mask at 4L, pt increased to 88%. notified ED provider
[2025-09-25 10:28] LABS: Hematocrit 34.6 % (37-53); Hemoglobin 10.70 g/dL (11.27-16.99); Mean Corpuscular HGB Conc 30.9 g/dL (30-55); Mean Corpuscular Hemoglobin 30.3 pg (27-33); Mean Corpuscular Volume 98.0 fl (82-101); Nucleated Red Blood Cells % 0 %; Platelet Count 117 10^3/cmm (157-399); Red Blood Count 3.53 10^6/uL (3.85-5.65); White Blood Count 5.90 10^3/uL (3.29-11.43)
--- NOTE | 2025-09-25 10:28 | ECG_ITS ---
[facility]: 2025-09-25 Pat Name: Manuel Parsons Department: Room: Gender: Male Rn Camp: : 1940 Requested By: Mitra Triplett Order Number: [id number] Reading MD: FADI MORILLO Measurements Intervals [place] Rate: 116 P: 44 [place]: 204 QRS: 256 QRSD: 82 T: 37 QT: 315 QTc: 438 Interpretive Statements SINUS TACHYCARDIA RIGHT AXIS DEVIATION [QRS AXIS > 100] POSSIBLE ANTERIOR MYOCARDIAL INFARCTION , PROBABLY OLD [30 ms Q WAVE IN V3/V4, OR R < 0.2 mV IN V4] INFERIOR MYOCARDIAL INFARCTION , PROBABLY OLD [40+ ms Q WAVE AND/OR ST/T ABNORMALITY IN II/aVF] Compared to ECG 09/25/2025 09:45:39 Right-axis deviation now present Myocardial infarct finding still present Electronically Signed On 09-25-2025 20:35:04 ASSEMBLER HANDBAGS by FADI MORILLO [email or web address]
[2025-09-25 10:42] LABS: Lactic Sepsis W/Reflex 1.7 mmol/L (0.5-2.2)
[2025-09-25 10:47] LABS: Troponin(5th) Baseline 223 ng/L (0-15)
[2025-09-25 10:52] LABS: NT Pro B Type Natriuretic Pept 12706 pg/mL (0-450); Procalcitonin 1.09 ng/mL (0-0.5)
[2025-09-25 11:04] LABS: Alanine Aminotransferase 6 U/L (0-41); Albumin Level 3.7 g/dL (3.5-5.2); Alkaline Phosphatase 118 U/L (40-130); Anion Gap 16.3 (5-19); Aspartate Amino Transferase 13 U/L (0-40); Blood Urea Nitrogen 15 mg/dL (8-23); Calcium 8.8 mg/dL (8.5-10.5); Carbon Dioxide 26 mmol/L (22-29); Chloride 99 mmol/L (98-107); Globulin 1.9 g/dL (1.3-4.6); Glucose 88 mg/dL (65-115); Osmolality Calculated 284 mOsm/kg (285-295); Potassium 4.3 mmol/L (3.5-5.1); Sodium 137 mmol/L (136-145); Total Protein 5.6 g/dL (6.6-8.7)
[2025-09-25 11:05] LABS: Respiratory Syncytial Virus Ce NEGATIVE (Negative); SARS-CoV-2 PCR NEGATIVE (Negative)
--- NOTE | 2025-09-25 12:21 | PC.NURSE ---
pt's oxygen on room air remains >92% while awake, when pt is asleep it decreases to 80%-84% on room air. pt currently still asleep, requiring 8L via Simple Mask to maintain >92%.
[2025-09-25] MEDS: linezolid premix 600 MG/300 ML PREMIX 300 MG IV (12:33)
--- NOTE | 2025-09-25 12:34 | PC.PHAR ---
Patient gets IV Antibiotics AT [facility], Starting 09/06/25 .The order is for 12 treatments OF Cefepime 200mg. Patient has received 9 treatments as of 09/24/25 .
[2025-09-25] MEDS: heparin 5,000 unit/mL INJ 1 mL 5000 UNIT SUBCUT (13:26)
[2025-09-25] MEDS: levofloxacin-dextrose 5 % 500 MG/100 ML PREMIX 100 MG IV (13:39)
[2025-09-25 14:19] LABS: Lactic Sepsis W/Reflex 2.1 mmol/L (0.5-2.2)
--- NOTE | 2025-09-25 15:37 | PC.NURSE ---
Arrived from ED transferred to bed with sheet, AO x4
[2025-09-25 15:42] LABS: Reflex Lactate Order REFLEX LACTIC ORDERD
[2025-09-25 16:09] LABS: Troponin 5 6HR 201.2 ng/L (0-15); Troponin 5 6HR Delta -21.8 ng/L (0-12)
--- NOTE | 2025-09-25 16:24 | PM.HP ---
Providers/Chief Complaint Admitting Physician: Lynda Allen MD Primary Care Provider: Cristian Roman MD Chief Complaint: difficulty breathing, unresponsive at times History of Present Illness As per the previous retrospective note review and the patient: the history is not clear since the patient is not aware what happened and informed that the family brought him to the ER since he was not all by himself? 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 patient did not report any fevers or chills. There was no increasing lower leg swelling, PND or orthopnea. Did not report any chest pain or chest pressure. No abdominal pain or diarrhea. No fever or chills. Rest of the review of system unremarkable Review of Systems General: Reports: 10 or more systems reviewed and unremarkable except in HPI and below Medications/Allergies Home Medications ?Medication ?Instructions ?Recorded ?Confirmed ?Last Taken ?Type albuterol sulfate 90 mcg/actuation 1 puff inhalation QID PRN 11/05/24 09/25/25 Unknown History aerosol inhaler Shortness Of Breath levothyroxine 125 mcg tablet 125 mcg PO DAILY 11/05/24 09/25/25 09/24/25 08:00 History (Levo-T) ferrous sulfate 325 mg (65 mg 325 mg PO DAILY 12/29/24 09/25/25 08/25/25 06:45 History iron) tablet polyethylene glycol 3350 17 17 g PO DAILY PRN Constipation 12/29/24 09/25/25 Unknown History gram/dose oral powder (Miralax) vit C 250 mg-vit E 90 mg-zinc 40 1 tab PO BID 12/29/24 09/25/25 09/24/25 History mg-copper 1 [id number] capsule (PreserVision AREDS-2) famotidine 20 mg tablet (Acid 20 mg PO BID 02/06/25 09/25/25 08/25/25 06:45 History Mechanical Engineering Lecturer (famotidine)) diphenhydramine HCl 25 mg capsule 25 mg PO TID PRN Allergic Reaction 02/09/25 09/25/25 Unknown History (Benadryl) ondansetron 4 mg disintegrating 4 mg PO Q6H PRN nausea and 02/09/25 09/25/25 Unknown Rx tablet vomiting #14 tabs cyanocobalamin (vitamin B-12) 100 1,000 mcg (10 x 100 mcg) PO DAILY 02/17/25 09/25/25 08/25/25 06:45 Rx mcg tablet 10 days #0 tabs fludrocortisone 0.1 mg tablet 0.1 mg PO DAILY #30 tabs 02/17/25 09/25/25 09/24/25 Rx donepezil 10 mg tablet (Aricept) 10 mg PO DAILY #30 tabs 02/27/25 09/25/25 09/24/25 Rx midodrine 5 mg tablet 5 mg PO TID #30 tabs 02/27/25 09/25/25 08/24/25 06:55 Rx trazodone 50 mg tablet 50 mg PO .qhs PRN insomnia #14 tabs 02/27/25 09/25/25 Unknown Rx acetaminophen 325 mg tablet 650 mg PO QID PRN Fever Or Pain 08/25/25 09/25/25 Unknown History (Tylenol) hydrocortisone 10 mg tablet 0.5 mg PO TID 08/25/25 09/25/25 08/25/25 06:45 History cyclophosphamide 50 mg capsule 600 mg (12 x 50 mg) PO DAILY #60 09/20/25 09/25/25 Unknown Rx caps dexamethasone 4 mg tablet See Rx Instructions .Route .COMPLEX 09/25/25 09/25/25 Unknown History Allergies Allergy/AdvReac Type Severity Reaction Status Date / Time grass pollen Allergy Unknown Verified 09/25/25 09:48 house dust Allergy Unknown Verified 09/25/25 09:48 mold Allergy Unknown Verified 09/25/25 09:48 tree and shrub pollen Allergy Unknown Verified 09/25/25 09:48 PFSH Acute PFSH: Medical History (Updated 09/25/25 @ 18:33 by Lynda Allen MD) Gram-negative bacteremia Hood disease Pneumonia Chronic idiopathic constipation 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 Multiple myeloma GERD (gastroesophageal reflux disease) Anemia History of colon polyps Hx of echocardiogram 03/22/2024 Surgical History History of esophagogastroduodenoscopy (EGD) History of colonoscopy Hx laparoscopic cholecystectomy 06/07/2013 Hx of prostatectomy Social History Smoking and tobacco/nicotine status: never used tobacco/nicotine Alcohol intake: never Substance/Drug Use: never Household members: spouse Vitals/I&O/Wt Last Vital Signs Temp 98.4 F 09/25/25 09:36 Pulse 99 09/25/25 15:23 Resp 28 H 09/25/25 14:43 BP 113/76 09/25/25 15:23 Pulse Ox 98 09/25/25 15:23 O2 Del Method Nasal Cannula 09/25/25 14:43 O2 Flow Rate 4 09/25/25 14:43 09/25/25 09/25/25 09/25/25 06:59 14:59 22:59 Intake Total 500 / 500 400 / 900 Balance 500 / 500 400 / 900 Weight last 48 hrs Weight 83.915 kg Physical Exam Narrative: General: Alert and oriented, lying comfortably without any distress, able to speak in full sentences and on 2-3 L NC HEENT: Normocephalic, atraumatic, grossly unremarkable exam Cardio: normal rate rhythm, normal S1-S2 without any murmurs, rubs, or gallops and JVD normal Respiratory: normal vascular breathing on auscultation with mild wheezes, but no stridor, rhonchi GI: Abdomen soft, nontender, nondistended, normoactive bowel sounds present all 4 quadrants, Neuro: intact cranial nerves motor and sensory and cerebellar/coordination function without any focal neurological deficit Behavior: Appropriate and cooperative Extremities: Adequate palpable pulses, bilateral trace pedal edema having scoliotic spine and mild pain at the back Data 09/25/25 09:44 09/25/25 09:44 Micro: Microbiology 09/25/25 09:51 Blood Culture - Preliminary Blood SPECIMEN COLLECTED 09/25/25 09:44 Blood Culture - Preliminary Blood SPECIMEN COLLECTED A&P Assessment and plan 1. Acute hypoxemic respiratory failure: Patient recently discharged due to possible pneumonia 3 weeks ago, coming with shortness of breath with element of possible aspiration Speech and swallow assessment duo nebs and budosenide Based on last ID recommendation, ceftriaxone 2 g to continue, consider ID consult if not improving Vancomycin pharmacy dosed Follow cultures workup and MRSA swab Oxygen therapy as per protocol Telemetry monitoring 2. Metabolic encephalopathy: CT head neurochecks sepsis work up NS iv bolus NE if the patient requires during hemodialysis electrolytes monitoring and correction 3. End stage renal disease on dialysis: Nephrology consulted on board To continue scheduled hemodialysis on Tuesday Intake and output monitoring Daily renal function Monitor electrolytes and correction accordingly 4. Adrenal insufficiency: Home medication reviewed, continue fludrocortisone, hydrocortisone and midodrine Monitor blood pressure 5. GERD (gastroesophageal reflux disease): Daily PPI 6. Multiple myeloma: Currently stable, follow-up with the PCP/hematology oncology after discharge adequate analgesia for bone pains PDMP PDMP Reviewed: Not Reviewed Attestations Medical Necessity Statement*: Patient will stay more than 2 midnights for further management of his acute hypoxemic respiratory failure requiring ICU monitoring and further workup for possible sepsis? Time Spent in Patient Care: 16 - 35 minutes (>than 50% of time spent in counselling and/or direct pt care on unit). Critical Care Time: The high probability of a clinically significant, sudden or life threatening deterioration, as referenced in this documentation, required my full and direct attention, intervention and personal management. The critical care time shown is in addition to time spent performing any reported separately billable procedures and includes the following: [x] Data and vital sign review and interpretation [x] Patient assessment, examination and intervention [x] Medication orders and management [x] Patient/Family updates as able [x] Care Coordination and Documentation. Critical Care Time (min): 35 Other Attestations: Patient condition has been discussed at length with the patient/family, I have independently reviewed the chart labs imaging/diagnostics/EKG. the goals of care and code status with the patient/family/NOK/legal computer help desk representative, and documented accordingly. I have reconciled the medications after confirmation/comorbidities/current clinical condition. The management has been done according to the current clinical condition with respect to patient goals of care and based on recommendations/guidelines. The patient/family has been informed about the current condition and further plan of care. Agreed with the plan of care and understood without any language barrier. Every effort was made to ensure accuracy of hair worker. Any obvious errors or omissions should be clarified with the author of the document. Coding Level of Care Code Critical Care >/= 30 minutes Diagnoses Acute hypoxemic respiratory failure J96.01 Metabolic encephalopathy G93.41 End stage renal disease on dialysis N18.6; Z99.2 Adrenal insufficiency E27.40 GERD (gastroesophageal reflux disease) K21.9 Multiple myeloma C90.00
--- NOTE | 2025-09-25 16:29 | ECG_ITS ---
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: : 1940 Requested By: Mitra Triplett Order Number: [id number] Reading MD: FADI MORILLO Measurements Intervals [place] Rate: 106 P: 41 OK: 199 QRS: -81 QRSD: 99 T: 40 QT: 349 QTc: 465 Interpretive Statements SINUS TACHYCARDIA ANTERIOR MYOCARDIAL INFARCTION , OF INDETERMINATE AGE [40+ ms Q WAVE AND/OR ST/T ABNORMALITY IN V3/V4] INFERIOR MYOCARDIAL INFARCTION , PROBABLY OLD [40+ ms Q WAVE AND/OR ST/T ABNORMALITY IN II/aVF] Compared to ECG 09/25/2025 10:40:36 Right-axis deviation no longer present Myocardial infarct finding still present Electronically Signed On 09-25-2025 20:33:21 KITCHEN WORK SUPERVISOR by FADI MORILLO [email or web address]
[2025-09-25 16:51] LABS: Lactic Acid level (Lactate) 1.7 mmol/L (0.5-2.2)
--- NOTE | 2025-09-25 17:00 | PHA.VACGOAL ---
Vancomycin Goal - Goal Vancomycin Goal:: 15-20 mg/L Vancomycin Indication:: Pneumonia - Therapy Day of therpy:: Day []of [] . Actual body weight (kg): 83.915 kg - Data Labs: WBC 5.90 10^3/uL (3.29-11.43) 09/25/25 09:44 RBC 3.53 10^6/uL (3.85-5.65) L 09/25/25 09:44 Hgb 10.70 g/dL (11.27-16.99) L 09/25/25 09:44 Hct 34.6 % (37-53) L 09/25/25 09:44 MCV 98.0 fl (82-101) 09/25/25 09:44 MCH 30.3 pg (27-33) 09/25/25 09:44 MCHC 30.9 g/dL (30-55) 09/25/25 09:44 RDW 15.9 % (12.1-15.1) H 09/25/25 09:44 Sodium 137 mmol/L (136-145) 09/25/25 09:44 Potassium 4.3 mmol/L (3.5-5.1) 09/25/25 09:44 Chloride 99 mmol/L (98-107) 09/25/25 09:44 Carbon Dioxide 26 mmol/L (22-29) 09/25/25 09:44 Anion Gap 16.3 (5-19) 09/25/25 09:44 BUN 15 mg/dL (8-23) 09/25/25 09:44 Creatinine 4.7 mg/dL (0.7-1.2) H 09/25/25 09:44 GFR Calculation Not Reportable 09/25/25 09:44 Treatment plan:: new consult Regimen:: PULSE DOSING 1000MG NOW TROUGH 09/26 1600
[2025-09-25] MEDS: cefTRIAXone 2,000 mg SDV 2000 MG IVP (17:25)
--- NOTE | 2025-09-25 17:36 | CTR_ITS ---
PROCEDURE INFORMATION: Exam: CT Head Without Contrast Exam date and time: 09/25/2025 6:04 PM Age: 85 years old Clinical indication: Altered mental status/memory loss; Additional info: AMS TECHNIQUE: Imaging protocol: Computed tomography of the head without contrast. Radiation optimization: All CT scans at this facility use at least one of these dose optimization techniques: automated exposure control; mA and/or kV adjustment per patient size (includes targeted exams where dose is matched to clinical indication); or iterative reconstruction. COMPARISON: MR head wo/w con [id number] 02/27/2025 12:00 PM RADIATION DOSE METRICS: Total DLP (mGy-cm): 1097.79 FINDINGS: Brain: Moderate atrophic changes as seen previously. Areas of decreased periventricular white matter density again seen consistent with chronic ischemic changes. Low-density areas posterior right and left cerebellum consistent with a previous infarcts. Normal howe-white matter differentiation. No evidence of acute intracranial hemorrhage or mass. Calcification cavernous portions of the internal carotid arteries. Calcification vertebral arteries. Cerebral ventricles: Proportionate to atrophic changes. Paranasal sinuses: Visualized sinuses are unremarkable. No fluid levels. Spur posterior nasal septum to the right. Deviation anterior nasal septum to the left. Soft tissue hypertrophy inferior right nasal turbinate. Theresa bullosa bilateral nasal turbinates Mastoid air cells: Visualized mastoid air cells are well aerated. Cerumen within the right external auditory canal. Bones: Unremarkable. No acute fracture. Soft tissues: Unremarkable. CT/CT head wo con* [id number] IMPRESSION: 1. Atrophy, chronic ischemic changes, old bilateral cerebellar infarcts without acute appearing intracranial abnormality. 2. Vascular calcification. 3. Cerumen within the right external auditory canal.
--- NOTE | 2025-09-25 17:40 | PC.NURSE ---
Dr. You came to bedside gave orders for breathing treatments see orders, approved giving 2100 midodrine early for dialysis,
[2025-09-25 17:46] LABS: Coronavirus 229E,HKU1,NL63,OC4 Not Detected (NOT DETECT); Parainfluenza Virus Type 1 Not Detected (NOT DETECT); Parainfluenza Virus Type 2 Not Detected (NOT DETECT); Parainfluenza Virus Type 3 Not Detected (NOT DETECT); Parainfluenza Virus Type 4 Not Detected (NOT DETECT); SARS-COV-2 Not Detected (NOT DETECT)
[2025-09-25] MEDS: morphine 4 mg/mL SDV 1 mL IVP (18:19)
--- NOTE | 2025-09-25 19:23 | PM.CONSULT ---
Providers/Reason For Consult Consulting Physician/Specialty*: kommana /nephrology Reason for Consult*: ESRD Attending Physician: yLnda Allen MD Primary Care Provider: Cristian Roman MD History of Present Illness History of Present Illness Manuel Parsons is a 85 year old male Review of Systems Narrative: NEGATIVE Medications/Allergies Home Medications ?Medication ?Instructions ?Recorded ?Confirmed ?Last Taken ?Type albuterol sulfate 90 mcg/actuation 1 puff inhalation QID PRN 11/05/24 09/25/25 Unknown History aerosol inhaler Shortness Of Breath levothyroxine 125 mcg tablet 125 mcg PO DAILY 11/05/24 09/25/25 09/24/25 08:00 History (Levo-T) ferrous sulfate 325 mg (65 mg 325 mg PO DAILY 12/29/24 09/25/25 08/25/25 06:45 History iron) tablet polyethylene glycol 3350 17 17 g PO DAILY PRN Constipation 12/29/24 09/25/25 Unknown History gram/dose oral powder (Miralax) vit C 250 mg-vit E 90 mg-zinc 40 1 tab PO BID 12/29/24 09/25/25 09/24/25 History mg-copper 1 [id number] capsule (PreserVision AREDS-2) famotidine 20 mg tablet (Acid 20 mg PO BID 02/06/25 09/25/25 08/25/25 06:45 History Hand Grinder (famotidine)) diphenhydramine HCl 25 mg capsule 25 mg PO TID PRN Allergic Reaction 02/09/25 09/25/25 Unknown History (Benadryl) ondansetron 4 mg disintegrating 4 mg PO Q6H PRN nausea and 02/09/25 09/25/25 Unknown Rx tablet vomiting #14 tabs cyanocobalamin (vitamin B-12) 100 1,000 mcg (10 x 100 mcg) PO DAILY 02/17/25 09/25/25 08/25/25 06:45 Rx mcg tablet 10 days #0 tabs fludrocortisone 0.1 mg tablet 0.1 mg PO DAILY #30 tabs 02/17/25 09/25/25 09/24/25 Rx donepezil 10 mg tablet (Aricept) 10 mg PO DAILY #30 tabs 02/27/25 09/25/25 09/24/25 Rx midodrine 5 mg tablet 5 mg PO TID #30 tabs 02/27/25 09/25/25 08/24/25 06:55 Rx trazodone 50 mg tablet 50 mg PO .qhs PRN insomnia #14 tabs 02/27/25 09/25/25 Unknown Rx acetaminophen 325 mg tablet 650 mg PO QID PRN Fever Or Pain 08/25/25 09/25/25 Unknown History (Tylenol) hydrocortisone 10 mg tablet 0.5 mg PO TID 08/25/25 09/25/25 08/25/25 06:45 History cyclophosphamide 50 mg capsule 600 mg (12 x 50 mg) PO DAILY #60 09/20/25 09/25/25 Unknown Rx caps dexamethasone 4 mg tablet See Rx Instructions .Route .COMPLEX 09/25/25 09/25/25 Unknown History Allergies Allergy/AdvReac Type Severity Reaction Status Date / Time grass pollen Allergy Unknown Verified 09/25/25 09:48 house dust Allergy Unknown Verified 09/25/25 09:48 mold Allergy Unknown Verified 09/25/25 09:48 tree and shrub pollen Allergy Unknown Verified 09/25/25 09:48 Current Medications Generic Name Dose Route Start Last Admin Trade Name Freq PRN Reason Stop Dose Admin Ceftriaxone Sodium 2,000 mg 09/25/25 16:45 09/25/25 17:25 Ceftriaxone 2,000 Mg Sdv IVP 2,000 mg Q24H CHUNG Administration Protocol Gabapentin 100 mg 09/25/25 18:00 09/25/25 18:19 Gabapentin 100 Mg Capsule PO 100 mg BID CHUNG Administration Heparin Sodium (Porcine) 5,000 unit 09/25/25 13:15 09/25/25 13:26 Heparin 5,000 Unit/Ml Inj 1 Ml SUBCUT 5,000 unit Q12H CHUNG Administration Morphine Sulfate 4 mg 09/25/25 13:12 09/25/25 18:19 Morphine 4 Mg/Ml Sdv 1 Ml IVP 4 mg Q4H PRN Administration SEVERE PAIN PFSH Acute PFSH: Medical History (Updated 09/25/25 @ 18:33 by Lynda lAlen MD) Gram-negative bacteremia Bureau disease Pneumonia Chronic idiopathic constipation 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 Multiple myeloma GERD (gastroesophageal reflux disease) Anemia History of colon polyps Hx of echocardiogram 03/22/2024 Surgical History History of esophagogastroduodenoscopy (EGD) History of colonoscopy Hx laparoscopic cholecystectomy 06/07/2013 Hx of prostatectomy Social History Smoking and tobacco/nicotine status: never used tobacco/nicotine Alcohol intake: never Substance/Drug Use: never Household members: spouse Vitals/I&O/Wt Last Vital Signs Temp 98.4 F 09/25/25 09:36 Pulse 93 09/25/25 18:15 Resp 14 09/25/25 18:19 BP 117/61 09/25/25 18:00 Pulse Ox 90 09/25/25 18:19 O2 Del Method Nasal Cannula 09/25/25 16:48 O2 Flow Rate 2 09/25/25 16:48 09/25/25 09/25/25 09/25/25 06:59 14:59 22:59 Intake Total 500 / 500 818.75 / 1318.75 Balance 500 / 500 818.75 / 1318.75 Weight last 48 hrs Weight 83.915 kg Physical Exam Narrative: awake , alert , Nodistress on 2l NC s1s2 RRR Lungs clear Abd soft , non tender Ext no edema Data 09/25/25 09:44 09/25/25 09:44 Micro: Microbiology 09/25/25 09:51 Blood Culture - Preliminary Blood SPECIMEN COLLECTED 09/25/25 09:44 Blood Culture - Preliminary Blood SPECIMEN COLLECTED A&P Assessment and plan 1. End stage renal disease on dialysis: 1. End-stage renal disease: On MWF schedule, HD today 2. Chronic resp failure , on 2L NC 3. AMS , improved 4. History of multiple myeloma with bone mets 5. Anemia: ,DAMON when indicated Patient evaluated using audiovisual cart. Time spent 40-minute PDMP PDMP Reviewed: Not Reviewed Consult Attestations Medical Necessity Statement: per dorian Coding Level of Care Code Acute Code for Chg Fwd Diagnoses End stage renal disease on dialysis N18.6; Z99.2
[2025-09-25 19:55] LABS: MRSA PCR OZH (swab) NOT DETECTED (Negative)
[2025-09-26] VITALS (89 sets, daily range): BP systolic 72–128; BP diastolic 39–100; PULSE 61–104; RESP 18–34; TEMP 35.9–37.7; O2SAT 87–100
[2025-09-26] MEDS: heparin 5,000 unit/mL INJ 1 mL 5000 UNIT SUBCUT ×2 (00:21→13:13)
[2025-09-26 03:56] LABS: Hematocrit 28.4 % (37-53); Hemoglobin 8.80 g/dL (11.27-16.99); Mean Corpuscular HGB Conc 31.0 g/dL (30-55); Mean Corpuscular Hemoglobin 31.0 pg (27-33); Mean Corpuscular Volume 100.0 fl (82-101); Nucleated Red Blood Cells % 0 %; Platelet Count 77 10^3/cmm (157-399); Red Blood Count 2.84 10^6/uL (3.85-5.65); White Blood Count 2.95 10^3/uL (3.29-11.43)
[2025-09-26 04:07] LABS: Alanine Aminotransferase < 5 U/L (0-41); Albumin Level 3.3 g/dL (3.5-5.2); Alkaline Phosphatase 90 U/L (40-130); Anion Gap 12.9 (5-19); Aspartate Amino Transferase 12 U/L (0-40); Blood Urea Nitrogen 11 mg/dL (8-23); Calcium 7.9 mg/dL (8.5-10.5); Carbon Dioxide 27 mmol/L (22-29); Chloride 102 mmol/L (98-107); Globulin 2.0 g/dL (1.3-4.6); Glucose 77 mg/dL (65-115); Osmolality Calculated 284 mOsm/kg (285-295); Potassium 3.9 mmol/L (3.5-5.1); Sodium 138 mmol/L (136-145); Total Protein 5.3 g/dL (6.6-8.7)
[2025-09-26] MEDS: ferrous sulfate EC 325 mg Tablet PO (04:27)
[2025-09-26] MEDS: pantoprazole 40 mg SDV IVP (04:28)
--- NOTE | 2025-09-26 14:20 | P.PN_ITS ---
Subjective 2 Subjective: Patient was seen in the morning, currently doing well. Shortness of breath improved Patient found to have enteroviral infection and further informed that at some point in his life he was also diagnosed with asthma and was on inhalers but he only take it for some time He was also prescribed BiPAP and diagnosed with sleep apnea few years ago but never used it since he did not like the machine and returned it Further patient informed that he has still ongoing 2 g ceftriaxone postdialysis which was supposedly finish on 09/16/2025 as per ID recommendation ID consulted and on board and will further advise the plan of care, appreciate their recommendation Vitals/I&O/Wt Last Vital Signs Temp 97.7 F 09/26/25 12:12 Pulse 104 H 09/26/25 12:00 Resp 32 H 09/26/25 12:00 BP 103/51 09/26/25 12:00 Pulse Ox 94 09/26/25 12:00 O2 Del Method Nasal Cannula 09/26/25 11:00 O2 Flow Rate 2 09/26/25 11:00 09/25/25 09/26/25 09/26/25 22:59 06:59 14:59 Intake Total 1718.75 / 2218.75 400 / 2618.75 400 / 400 Output Total 2395 / 2395 Balance -676.25 / -176.25 400 / 223.75 400 / 400 Weight last 48 hrs Weight 85.321 kg Weight 87.5 kg Weight 83.915 kg Physical Exam 2 Narrative: General: Alert and oriented, lying comfortably without any distress, able to speak in full sentences and on 2-3 L NC HEENT: Normocephalic, atraumatic, grossly unremarkable exam Cardio: normal rate rhythm, normal S1-S2 without any murmurs, rubs, or gallops and JVD normal, PermCath catheter on the right side intact without any signs of infection Respiratory: normal vascular breathing on auscultation with mild to moderate wheezes, but no stridor, rhonchi GI: Abdomen soft, nontender, nondistended, normoactive bowel sounds present all 4 quadrants, Neuro: intact cranial nerves motor and sensory and cerebellar/coordination function without any focal neurological deficit Behavior: Appropriate and cooperative Extremities: Adequate palpable pulses, bilateral trace pedal edema having scoliotic spine and mild pain at the back Data 09/26/25 03:42 09/26/25 03:42 Micro: Microbiology 09/25/25 09:51 Blood Culture - Preliminary Blood NEGATIVE TO DATE 09/25/25 09:44 Blood Culture - Preliminary Blood NEGATIVE TO DATE A&P Assessment and plan 1. Acute hypoxemic respiratory failure: Patient recently discharged due to possible pneumonia 3 weeks ago, coming with shortness of breath with element of possible aspiration Speech and swallow assessment duo nebs and budosenide Patient previously was admitted as a case of Streptococcus bacteremia currently blood cultures negative, ID consulted will receiving ceftriaxone 2 g postdialysis although it has been mentioned to be completed till 09/16/2025? Case of atypical pneumonia found to have enteroviral infection, continue ceftriaxone 1 g daily and azithromycin. Follow cultures workup and MRSA swab negative Oxygen therapy as per protocol Telemetry monitoring 2. Asthma exacerbation: Patient mentioned having past medical history of possible asthma and also sleep apnea but he was not using his inhalers and was not compliant over the BiPAP therefore he returned it Currently having enteroviral infection Started on ceftriaxone and azithromycin Oxygen therapy as per protocol Monitor hemodynamics Overnight pulse ox and home O2 eval 3. Metabolic encephalopathy: CT head unremarkable for any acute stroke or acute features Regular neurochecks sepsis work up, blood cultures till date negative, found to have enteroviral infection. Norepinephrine as needed if the patient quires during hemodialysis Maintain adequate hydration 4. End stage renal disease on dialysis: Nephrology consulted on board and appreciate the recommendation To continue scheduled hemodialysis on Tuesday Intake and output monitoring Daily renal function Monitor electrolytes and correction accordingly 5. Adrenal insufficiency: Home medication reviewed, continue fludrocortisone, hydrocortisone and midodrine Monitor blood pressure 6. GERD (gastroesophageal reflux disease): Daily PPI 7. Multiple myeloma not having achieved remission: Currently stable, follow-up with the PCP/hematology oncology after discharge adequate analgesia for bone pains Plan: Patient can be transferred to the [facility] floor VTE: Heparin twice daily PDMP PDMP Reviewed: Not Reviewed Attestations 2 Medical Necessity Statement*: Patient will stay over midnight for the management of his acute hypoxemic respiratory failure possible underlying element of asthma exacerbation versus sepsis pending ID recommendation and to follow the cultures Time Spent in Patient Care: 16 - 35 minutes (>than 50% of time sp ent in counselling and/or direct pt care on unit) . Other Attestations: Patient condition has been discussed at length with the patient/family, I have independently reviewed the chart labs imaging/diagnostics/EKG. the goals of care and code status with the patient/family/NOK/legal home furnishings sales representative, and documented accordingly. I have reconciled the medications after confirmation/comorbidities/current clinical condition. The management has been done according to the current clinical condition with respect to patient goals of care and based on recommendations/guidelines. The patient/family has been informed about the current condition and further plan of care. Agreed with the plan of care and understood without any language barrier. Every effort was made to ensure accuracy of planograph operator. Any obvious errors or omissions should be clarified with the author of the document. Coding Level of Care Code 26225 Diagnoses Acute hypoxemic respiratory failure J96.01 Asthma exacerbation J45.901 Metabolic encephalopathy G93.41 End stage renal disease on dialysis N18.6; Z99.2 Adrenal insufficiency E27.40 GERD (gastroesophageal reflux disease) K21.9 Multiple myeloma not having achieved remission C90.00 Multiple myeloma remission status: not in remission
[2025-09-26] MEDS: cefTRIAXone 1,000 mg SDV 1000 MG IVP (14:34)
--- NOTE | 2025-09-26 16:47 | P.PN_ITS ---
Subjective 2 Subjective: SOB improved Medications: Reviewed: Yes Vitals/I&O/Wt Last Vital Signs Temp 97.7 F 09/26/25 12:12 Pulse 84 09/26/25 15:44 Resp 22 H 09/26/25 15:27 BP 92/46 09/26/25 14:15 Pulse Ox 97 09/26/25 15:27 O2 Del Method Nasal Cannula 09/26/25 15:27 O2 Flow Rate 2 09/26/25 15:27 09/26/25 09/26/25 09/26/25 06:59 14:59 22:59 Intake Total 400 / 2618.75 400 / 400 250 / 650 Balance 400 / 223.75 400 / 400 250 / 650 Weight last 48 hrs Weight 85.321 kg Weight 87.5 kg Weight 83.915 kg Physical Exam 2 Narrative: awake , alert , Nodistress on 2l NC s1s2 RRR Lungs clear Abd soft , non tender Ext no edema Data 09/26/25 03:42 09/26/25 03:42 Micro: Microbiology 09/25/25 09:51 Blood Culture - Preliminary Blood NEGATIVE TO DATE 09/25/25 09:44 Blood Culture - Preliminary Blood NEGATIVE TO DATE A&P Assessment and plan 1. End stage renal disease on dialysis: 1. End-stage renal disease: On MWF schedule, HD tomorrow 2. Chronic resp failure , on 2L NC 3. AMS ,metabolic encephalopathy, improved 4. History of multiple myeloma with bone mets 5. Anemia: ,DAMON when indicated Patient evaluated using audiovisual cart. Time spent 40-minute PDMP PDMP Reviewed: Not Reviewed Attestations 2 Medical Necessity Statement*: per dorian Coding Level of Care Code Acute Code for Chg Fwd Diagnoses End stage renal disease on dialysis N18.6; Z99.2
--- NOTE | 2025-09-26 22:49 | PM.CONSULT ---
Providers/Reason For Consult Consulting Physician/Specialty*: Tania Barton MD/ Infectious Disease Attending Physician: Lynda Allen MD Primary Care Provider: Cristian Roman MD History of Present Illness History of Present Illness Manuel Parsons is a 85 year old male Review of Systems General: Reports: 10 or more systems reviewed and unremarkable except in HPI and below Const: Denies: fever(s), chills or body aches Eyes: Denies: change in vision, blurry vision or photophobia ENMT: Reports: hoarseness; Denies: throat pain, enlarged tonsils, odynophagia or nasal congestion Card: Denies: chest pain, palpitations, irregular heart rhythm, edema, swelling of feet/ankles, lightheadedness, pre-syncope, dyspnea on exertion or orthopnea Resp: Denies: dyspnea, productive cough, non-productive cough, wheezing, stridor, pain on inspiration, change in phlegm color, hemoptysis or chest congestion GI: Denies: abdominal pain, nausea, vomiting, hematemesis, coffee ground emesis, dysphagia, heartburn, diarrhea, constipation, GI cramping, change in stool character, hematochezia or melena : Denies: flank pain, dysuria, urinary frequency, urinary urgency, urinary hesitancy or hematuria Musc: Denies: neck pain, back pain, extremity pain, joint swelling, joint warmth or deformity Neuro: Denies: headache(s), numbness in extremities, weakness in extremities, sensory changes, difficulty walking, frequent falls, dizziness, vertigo, behavioral changes, Slurred speech present or seizure-like activity Psych: Denies: anxiety, depression, suicidal ideation or homicidal ideation Endo: Denies: polyuria, polydipsia, tired all the time, cold intolerance or hot flashes Nigel/Lymph: Denies: easy bruising or easy bleeding Medications/Allergies Home Medications ?Medication ?Instructions ?Recorded ?Confirmed ?Last Taken ?Type albuterol sulfate 90 mcg/actuation 1 puff inhalation QID PRN 11/05/24 09/25/25 Unknown History aerosol inhaler Shortness Of Breath levothyroxine 125 mcg tablet 125 mcg PO DAILY 11/05/24 09/25/25 09/24/25 08:00 History (Levo-T) ferrous sulfate 325 mg (65 mg 325 mg PO DAILY 12/29/24 09/25/25 08/25/25 06:45 History iron) tablet polyethylene glycol 3350 17 17 g PO DAILY PRN Constipation 12/29/24 09/25/25 Unknown History gram/dose oral powder (Miralax) vit C 250 mg-vit E 90 mg-zinc 40 1 tab PO BID 12/29/24 09/25/25 09/24/25 History mg-copper 1 ep-[id number]-pypsfa capsule (PreserVision AREDS-2) famotidine 20 mg tablet (Acid 20 mg PO BID 02/06/25 09/25/25 08/25/25 06:45 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)) diphenhydramine HCl 25 mg capsule 25 mg PO TID PRN Allergic Reaction 02/09/25 09/25/25 Unknown History (Benadryl) ondansetron 4 mg disintegrating 4 mg PO Q6H PRN nausea and 02/09/25 09/25/25 Unknown Rx tablet vomiting #14 tabs cyanocobalamin (vitamin B-12) 100 1,000 mcg (10 x 100 mcg) PO DAILY 02/17/25 09/25/25 08/25/25 06:45 Rx mcg tablet 10 days #0 tabs fludrocortisone 0.1 mg tablet 0.1 mg PO DAILY #30 tabs 02/17/25 09/25/25 09/24/25 Rx donepezil 10 mg tablet (Aricept) 10 mg PO DAILY #30 tabs 02/27/25 09/25/25 09/24/25 Rx midodrine 5 mg tablet 5 mg PO TID #30 tabs 02/27/25 09/25/25 08/24/25 06:55 Rx trazodone 50 mg tablet 50 mg PO .qhs PRN insomnia #14 tabs 02/27/25 09/25/25 Unknown Rx acetaminophen 325 mg tablet 650 mg PO QID PRN Fever Or Pain 08/25/25 09/25/25 Unknown History (Tylenol) hydrocortisone 10 mg tablet 0.5 mg PO TID 08/25/25 09/25/25 08/25/25 06:45 History cyclophosphamide 50 mg capsule 600 mg (12 x 50 mg) PO DAILY #60 09/20/25 09/25/25 Unknown Rx caps dexamethasone 4 mg tablet See Rx Instructions .Route .COMPLEX 09/25/25 09/25/25 Unknown History Allergies Allergy/AdvReac Type Severity Reaction Status Date / Time grass pollen Allergy Unknown Verified 09/25/25 09:48 house dust Allergy Unknown Verified 09/25/25 09:48 mold Allergy Unknown Verified 09/25/25 09:48 tree and shrub pollen Allergy Unknown Verified 09/25/25 09:48 Current Medications Generic Name Dose Route Start Last Admin Trade Name Freq PRN Reason Stop Dose Admin Budesonide 0.5 mg 09/25/25 20:00 09/26/25 19:53 Budesonide 0.5 Mg/2 Ml Neb INHALATION 0.5 mg BID.RESPIRATORY CHUNG Administration Ceftriaxone Sodium 1,000 mg 09/26/25 14:30 09/26/25 14:34 Ceftriaxone 1,000 Mg Sdv IVP 1,000 mg Q24H CHUNG Administration Protocol Cyanocobalamin 1,000 mcg 09/26/25 05:00 09/26/25 04:28 Cyanocobalamin 1,000 Mcg Tablet PO 1,000 mcg DAILY CHUNG Administration Docusate Sodium 100 mg 09/26/25 13:48 09/26/25 14:39 Docusate Sodium 100 Mg Capsule PO 100 mg DAILY PRN Administration CONSTIPATION Donepezil HCl 10 mg 09/26/25 05:00 09/26/25 04:27 Donepezil 5 Mg Tablet PO 10 mg DAILY CHUNG Administration Ferrous Sulfate 325 mg 09/26/25 05:00 09/26/25 04:27 Ferrous Sulfate Ec 325 Mg Tablet PO 325 mg DAILY CHUNG Administration Fludrocortisone Acetate 0.1 mg 09/26/25 05:00 09/26/25 04:28 Fludrocortisone 0.1 Mg Tablet PO 0.1 mg DAILY CHUNG Administration Gabapentin 100 mg 09/25/25 18:00 09/26/25 17:02 Gabapentin 100 Mg Capsule PO 100 mg BID CHUNG Administration Heparin Sodium (Porcine) 5,000 unit 09/25/25 13:15 09/26/25 13:13 Heparin 5,000 Unit/Ml Inj 1 Ml SUBCUT 5,000 unit Q12H CHUNG Administration Albumin Human 12.5 gm in 50 mls @ 60 mls/hr 09/25/25 14:56 09/25/25 22:07 Albumin IV Infused PRN PRN Infusion Hypotension and/or symptomatic Azithromycin 500 mg/ Sodium 250 mls @ 250 mls/hr 09/26/25 14:15 09/26/25 15:40 Chloride IV Infused Q24H CHUNG Infusion Protocol Ipratropium Henning 0.5 mg 09/25/25 20:00 09/26/25 19:53 Ipratropium 0.5 Mg/2.5 Ml Neb INHALATION 0.5 mg Q4H.RESPIRATORY CHUNG Administration Levalbuterol HCl 1.25 mg 09/25/25 20:00 09/26/25 19:54 Levalbuterol 1.25 Mg/3 Ml Neb INHALATION 1.25 mg Q4H.RESPIRATORY CHUNG Administration Levothyroxine Sodium 125 mcg 09/26/25 05:00 09/26/25 04:28 Levothyroxine 125 Mcg Tablet PO 125 mcg DAILY CHUNG Administration Midodrine 5 mg 09/25/25 21:00 09/26/25 20:22 Midodrine 5 Mg Tablet PO 5 mg TID CHUNG Administration Morphine Sulfate 4 mg 09/25/25 13:12 09/25/25 18:19 Morphine 4 Mg/Ml Sdv 1 Ml IVP 4 mg Q4H PRN Administration SEVERE PAIN Pantoprazole Sodium 40 mg 09/26/25 05:00 09/26/25 04:28 Pantoprazole 40 Mg Sdv IVP 40 mg DAILY CHUNG Administration PFSH Acute PFSH: Medical History (Updated 09/26/25 @ 15:56 by Lynda Allen MD) Gram-negative bacteremia Sebastian disease Pneumonia Chronic idiopathic constipation 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 Multiple myeloma GERD (gastroesophageal reflux disease) Anemia History of colon polyps Hx of echocardiogram 03/22/2024 Surgical History History of esophagogastroduodenoscopy (EGD) History of colonoscopy Hx laparoscopic cholecystectomy 06/07/2013 Hx of prostatectomy Social History Smoking and tobacco/nicotine status: never used tobacco/nicotine Alcohol intake: never Substance/Drug Use: never Household members: spouse Vitals/I&O/Wt Last Vital Signs Temp 99.9 F H 09/26/25 21:05 Pulse 81 09/26/25 19:54 Resp 23 H 09/26/25 19:54 BP 87/42 09/26/25 19:34 Pulse Ox 98 09/26/25 19:54 O2 Del Method Nasal Cannula 09/26/25 19:54 O2 Flow Rate 2 09/26/25 19:54 09/26/25 09/26/25 09/26/25 06:59 14:59 22:59 Intake Total 400 / 2618.75 400 / 400 450 / 850 Balance 400 / 223.75 400 / 400 450 / 850 Weight last 48 hrs Weight 85.321 kg Weight 87.5 kg Weight 83.915 kg Data 09/26/25 03:42 09/26/25 03:42 Other Labs: Radiology Impressions Chest X-Ray 09/25/25 09:28 Impression: 1. Bilateral pleural-based of opacities with decrease in left opacity. 2. Cardiomegaly and atherosclerosis.. Head CT 09/25/25 17:36 IMPRESSION: 1. Atrophy, chronic ischemic changes, old bilateral cerebellar infarcts without acute appearing intracranial abnormality. 2. Vascular calcification. 3. Cerumen within the right external auditory canal. Laboratory Results WBC 2.95 10^3/uL (3.29-11.43) L 09/26/25 03:42 RBC 2.84 10^6/uL (3.85-5.65) L 09/26/25 03:42 Hgb 8.80 g/dL (11.27-16.99) L 09/26/25 03:42 Hct 28.4 % (37-53) L 09/26/25 03:42 MCV 100.0 fl (82-101) 09/26/25 03:42 MCH 31.0 pg (27-33) 09/26/25 03:42 MCHC 31.0 g/dL (30-55) 09/26/25 03:42 RDW 15.8 % (12.1-15.1) H 09/26/25 03:42 Plt Count 77 10^3/cmm (157-399) L D 09/26/25 03:42 MPV 10.9 fL (7.4-10.4) H 09/26/25 03:42 Neut % (Auto) 54.9 % 09/26/25 03:42 Lymph % (Auto) 26.1 % 09/26/25 03:42 [place]ette % (Auto) 9.5 % 09/26/25 03:42 Eos % (Auto) 8.5 % 09/26/25 03:42 Baso % (Auto) 0.3 % 09/26/25 03:42 Neut # (Auto) 1.62 10^3/uL (1.8-7.7) L 09/26/25 03:42 Lymph # (Auto) 0.8 10^3/uL (0.8-4.8) 09/26/25 03:42 [place]ette # (Auto) 0.3 10^3/uL (0.2-0.9) 09/26/25 03:42 Eos # (Auto) 0.3 10^3/uL (0.0-0.8) 09/26/25 03:42 Baso # (Auto) 0.0 10^3/uL (0.0-0.1) 09/26/25 03:42 Nucleated RBC % (auto) 0 % 09/26/25 03:42 Nucleated RBCs # 0.0 /100WBC 09/26/25 03:42 Specimen Type Arterial 09/25/25 09:39 Sample Site Radial, left 09/25/25 09:39 ABG pH 7.44 (7.35-7.45) 09/25/25 09:39 ABG pCO2 35.5 mmHg (35-45) 09/25/25 09:39 ABG pO2 51.4 mmHg (80.0-100.0) L 09/25/25 09:39 ABG PO2/FiO2 Ratio 244 09/25/25 09:39 ABG HCO3 24.0 mmol/L (22-26) 09/25/25 09:39 ABG O2 Saturation 88.4 09/25/25 09:39 ABG Base Excess 0.1 mmol/L (-2.0-2.0) 09/25/25 09:39 Leander Test Pos 09/25/25 09:39 A-a O2 Gradient 7.2 mmHg (5-10) 09/25/25 09:39 Hematocrit 33.4 % (42-52) L 09/25/25 09:39 Hgb O2 Saturation 86.4 % (95-100) L 09/25/25 09:39 Carboxyhemoglobin 1.4 %THgb (0.4-20.1) 09/25/25 09:39 Methemoglobin 0.9 % (0.4-1.5) 09/25/25 09:39 Total Hemoglobin 10.9 g/dL (14-18) L 09/25/25 09:39 Sodium 137.0 mmol/L (131-143) 09/25/25 09:39 Potassium 4.3 mmol/L (3.5-5.0) 09/25/25 09:39 Glucose 88.0 mg/dL (70-115) 09/25/25 09:39 Ionized Calcium 1.2 mmol/L (1.1-1.4) 09/25/25 09:39 O2 Delivery Device Room air 09/25/25 09:39 FiO2 21.0 % 09/25/25 09:39 Flakeboard Line Tender ID Walci 09/25/25 09:39 Sodium 138 mmol/L (136-145) 09/26/25 03:42 Potassium 3.9 mmol/L (3.5-5.1) 09/26/25 03:42 Chloride 102 mmol/L (98-107) 09/26/25 03:42 Carbon Dioxide 27 mmol/L (22-29) 09/26/25 03:42 Anion Gap 12.9 (5-19) 09/26/25 03:42 BUN 11 mg/dL (8-23) 09/26/25 03:42 Creatinine 3.8 mg/dL (0.7-1.2) H 09/26/25 03:42 GFR Calculation Not Reportable 09/26/25 03:42 Glucose 77 mg/dL (65-115) 09/26/25 03:42 Calculated Osmolality 284 mOsm/kg (285-295) L 09/26/25 03:42 Lactic Acid 2.1 mmol/L (0.5-2.2) 09/25/25 13:37 Lactic Acid (Sepsis) 1.7 mmol/L (0.5-2.2) 09/25/25 16:30 Calcium 7.9 mg/dL (8.5-10.5) L 09/26/25 03:42 Total Bilirubin 0.3 mg/dL (0.15-1.2) 09/26/25 03:42 AST 12 U/L (0-40) 09/26/25 03:42 ALT < 5 U/L (0-41) 09/26/25 03:42 Alkaline Phosphatase 90 U/L (40-130) 09/26/25 03:42 Troponin T Baseline 223 ng/L (0-15) H* 09/25/25 09:44 Troponin T 60 Minute 212.4 ng/L (0-15) H 09/25/25 10:54 Delta Troponin T -10.6 ABS# (0-10) L 09/25/25 10:54 Troponin T Hi Sens 6Hr 201.2 ng/L (0-15) H 09/25/25 15:44 Troponin T Hi Sens 6Hr Delta -21.8 ng/L (0-12) L 09/25/25 15:44 C-Reactive Protein 128.7 mg/L (0.0-4.9) H 09/25/25 09:44 NT-Pro-B Natriuret Pep 17819 pg/mL (0-450) H 09/25/25 09:44 Total Protein 5.3 g/dL (6.6-8.7) L 09/26/25 03:42 Albumin 3.3 g/dL (3.5-5.2) L 09/26/25 03:42 Globulin 2.0 g/dL (1.3-4.6) 09/26/25 03:42 Procalcitonin 1.09 ng/mL (0-0.5) H 09/25/25 09:44 Nasal MRSA (PCR) Not detected (Negative) 09/25/25 18:29 Vancomycin Trough < 0.4 ug/mL (10-15) L 09/26/25 17:01 Adenovirus (PCR) Not detected (NOT DETECT) 09/25/25 15:12 C. pneumoniae DNA (PCR) Not detected (NOT DETECT) 09/25/25 15:12 Coronavirus 229E (PCR) Not detected (NOT DETECT) 09/25/25 15:12 Human Metapneumovir PCR Not detected (NOT DETECT) 09/25/25 15:12 Influenza A (H1) PCR Not detected (NOT DETECT) 09/25/25 15:12 Influenza A (PCR) Negative (Negative) 09/25/25 09:44 Influ A (H1/09) PCR Not detected (NOT DETECT) 09/25/25 15:12 Influenza A (H3) PCR Not detected (NOT DETECT) 09/25/25 15:12 Influenza Type A (PCR) Not detected (NOT DETECT) 09/25/25 15:12 Influenza Type B (PCR) Not detected (NOT DETECT) 09/25/25 15:12 M. pneumoniae (PCR) Not detected (NOT DETECT) 09/25/25 15:12 Parainfluenza 1 (PCR) Not detected (NOT DETECT) 09/25/25 15:12 Parainfluenza 2 (PCR) Not detected (NOT DETECT) 09/25/25 15:12 Parainfluenza 3 (PCR) Not detected (NOT DETECT) 09/25/25 15:12 Parainfluenza 4 (PCR) Not detected (NOT DETECT) 09/25/25 15:12 RSV (PCR) Negative (Negative) 09/25/25 09:44 RSV Type A (PCR) Not detected (NOT DETECT) 09/25/25 15:12 RSV Type B (PCR) Not detected (NOT DETECT) 09/25/25 15:12 Entero/Rhino (PCR) Detected (NOT DETECT) A 09/25/25 15:12 SARS-CoV-2 (PCR) Not detected (NOT DETECT) 09/25/25 15:12 Micro: Microbiology 09/25/25 09:51 Blood Culture - Preliminary Blood NEGATIVE TO DATE 09/25/25 09:44 Blood Culture - Preliminary Blood NEGATIVE TO DATE A&P Assessment and plan 1. Bacteremia: 2. Bacterial infection due to Streptococcus, group . Multiple myeloma: 4. Immunocompromised state: 5. Personal history of immunosupression therapy: Plan: 85-year-old male with multiple myeloma, CKD on maintenance hemodialysis, currently on chemotherapy as noted above, currently admitted to the hospital with respiratory compromise, found to have bilateral pneumonia and bilateral pleural effusion left greater than right, in the setting of having had left-sided rib fractures recently. Hospital course notable for bacteremia with Streptococcus G initial Gram stain was identified as gram-positive rods, however eventual ID is Streptococcus G thereafter blood culture from 1128 showing micrococcus. Both cultures 1 out of 4 positive, typically would have considered contaminants, however in the setting of active infection by way of pneumonia, acute illness with respiratory compromise, could not dismiss them as contaminants based on the overall clinical picture. He has received treatment with piperacillin/tazobactam narrowed down to ceftriaxone appropriately during the course of admission. He is currently getting 2 g with dialysis Tuesday and Tuesday. Recommended total 2-week course of ceftriaxone 2 g IV 3 times a week after dialysis. Patient does not have any known history of orthopedic or cardiac hardware. Having had previous positive blood cultures in January 2025 and currently positive blood cultures, concern for potential catheter infection, however given Streptococcus and micrococcus isolates which are not an absolute indication for HD catheter removal, given patient's overall frail state, would avoid any invasive procedures for now. Plan to check surveillance cultures 2 weeks after completing IV antibiotic course. If surveillance cultures additionally return positive, the catheter would need to be considered for removal as a potential source of recurrent bacteremias. Recommend to obtain x-ray today to follow-up on previous noted effusion, rule out empyema given positive blood cultures on 08/25 and 08/30. While would have preferred to do a CAT scan for this information, patient reports it is currently painful to transition from bed to the CT table, therefore we will start with x-ray of the chest for now. He is currently afebrile. WBC count is trending towards neutropenia, likely related to recent chemotherapy. Recommend barium swallow to assess for ongoing recurrent aspiration. Will continue to follow PDMP PDMP Reviewed: Not Reviewed Consult Attestations Medical Necessity Statement: Per attending note Coding Level of Care Code Acute Code for Chg Fwd High MDM includes number and complexity of problems actively addressed during encounter, amount and/or complexity of data reviewed/ordered and described risk of complication, morbidity or mortality of management as documented Diagnoses Bacteremia R78.81 Bacterial infection due to Streptococcus, group G B95.4 Multiple myeloma C90.00 Immunocompromised state D84.9 Personal history of immunosupression therapy Z92.25
[2025-09-27] VITALS (13 sets, daily range): BP systolic 90–139; BP diastolic 51–66; PULSE 60–89; RESP 15–22; TEMP 36.3–37; O2SAT 90–98
[2025-09-27] MEDS: heparin 5,000 unit/mL INJ 1 mL 5000 UNIT SUBCUT ×2 (00:39→14:13)
[2025-09-27] MEDS: HYDROcodone-acetaminophen 5-325 mg Tablet 1 TAB PO ×2 (00:46→04:24)
[2025-09-27] MEDS: pantoprazole 40 mg SDV IVP (04:13)
[2025-09-27] MEDS: ferrous sulfate EC 325 mg Tablet PO (04:14)
[2025-09-27 06:24] LABS: Hematocrit 28.6 % (37-53); Hemoglobin 8.90 g/dL (11.27-16.99); Mean Corpuscular HGB Conc 31.1 g/dL (30-55); Mean Corpuscular Hemoglobin 31.0 pg (27-33); Mean Corpuscular Volume 99.7 fl (82-101); Nucleated Red Blood Cells % 0 %; Platelet Count 83 10^3/cmm (157-399); Red Blood Count 2.87 10^6/uL (3.85-5.65); White Blood Count 3.26 10^3/uL (3.29-11.43)
[2025-09-27 06:37] LABS: Alanine Aminotransferase < 5 U/L (0-41); Albumin Level 3.0 g/dL (3.5-5.2); Alkaline Phosphatase 88 U/L (40-130); Blood Urea Nitrogen 21 mg/dL (8-23); Calcium 7.7 mg/dL (8.5-10.5); Carbon Dioxide 23 mmol/L (22-29); Chloride 100 mmol/L (98-107); Globulin 2.1 g/dL (1.3-4.6); Glucose 105 mg/dL (65-115); Osmolality Calculated 283 mOsm/kg (285-295); Sodium 135 mmol/L (136-145); Total Protein 5.1 g/dL (6.6-8.7)
[2025-09-27 06:38] LABS: Anion Gap 16.2 (5-19); Aspartate Amino Transferase 14 U/L (0-40); Potassium 4.2 mmol/L (3.5-5.1)
[2025-09-27] MEDS: ondansetron 2 mg/ML SDV 2 mL 4 MG IVP ×2 (09:44→15:45)
--- NOTE | 2025-09-27 13:22 | PC.SLP ---
CHILD CAREGIVER visit attempted but patient in dialysis.
--- NOTE | 2025-09-27 14:45 | PC.SOCIAL ---
*IMM* Patient received a copy of the important message from Medicare. Copy initialled and dated in chart.
--- NOTE | 2025-09-27 15:38 | P.PN_ITS ---
Subjective 2 Subjective: getting HD Medications: Reviewed: Yes Vitals/I&O/Wt Last Vital Signs Temp 97.3 F L 09/27/25 12:44 Pulse 61 09/27/25 15:10 Resp 18 09/27/25 15:10 BP 139/66 09/27/25 12:44 Pulse Ox 95 09/27/25 15:10 O2 Del Method Nasal Cannula 09/27/25 15:10 O2 Flow Rate 2 09/27/25 15:10 09/27/25 09/27/25 09/27/25 06:59 14:59 22:59 Intake Total 240 / 1090 1110 / 1110 Output Total 2650 / 2650 Balance 240 / 1090 -1540 / -1540 Weight last 48 hrs Weight 88.1 kg Weight 85.275 kg Weight 85.321 kg Weight 87.5 kg Physical Exam 2 Narrative: awake , alert , Nodistress on 2l NC s1s2 RRR Lungs clear Abd soft , non tender Ext no edema Data 09/27/25 05:14 09/27/25 05:14 Micro: Microbiology 09/27/25 07:45 Gram Stain - Final Sputum - Expectorated Sputum 09/25/25 09:51 Blood Culture - Preliminary Blood NEGATIVE TO DATE 09/25/25 09:44 Blood Culture - Preliminary Blood NEGATIVE TO DATE A&P Assessment and plan 1. End stage renal disease on dialysis: 1. End-stage renal disease: On MWF schedule, HD today 2. Chronic resp failure , on 2L NC 3. AMS ,metabolic encephalopathy, improved 4. History of multiple myeloma with bone mets 5. Anemia: ,DAMON when indicated Patient evaluated using audiovisual cart. Time spent 40-minute PDMP PDMP Reviewed: Not Reviewed Attestations 2 Medical Necessity Statement*: per dorian Coding Level of Care Code Acute Code for Chg Fwd Diagnoses End stage renal disease on dialysis N18.6; Z99.2
[2025-09-27] MEDS: cefTRIAXone 1,000 mg SDV 1000 MG IVP (15:46)
--- NOTE | 2025-09-27 16:20 | PC.NURSE ---
pt req. [facility], they were closed. called in med to [facility].
--- NOTE | 2025-09-27 16:24 | PC.SLP ---
AIRCONDITIONING ENGINEER visit attempted. Patient had nausea after lunch and refused swallowing trials. Family educated on aspiration precaution, oral care.
--- NOTE | 2025-09-27 22:40 | P.DS_ITS ---
Discharge Providers Date of Admission: 09/25/25 15:11 Date of Discharge: September 27, 2025 Attending Provider at Admission: Lynda Allen MD Attending Provider at Discharge: Lynda Allen MD Primary Care Provider: Cristian Roman MD Diagnoses at Discharge Discharge Diagnosis 1. End stage renal disease on dialysis: Reason for Visit Reason for Visit: difficulty breathing, unresponsive at times Brief History: As per the retrospective note review and admitting physician: the history is not clear since the patient is not aware what happened and informed that the family brought him to the ER since he was not all by himself? 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 patient did not report any fevers or chills. There was no increasing lower leg swelling, PND or orthopnea. Did not report any chest pain or chest pressure. No abdominal pain or diarrhea. No fever or chills. Rest of the review of system unremarkable Hospital Course Hospital Course During hospital stay, patient was admitted as a case of possible sepsis, Further workup revealed that the patient is having enteroviral infection. Nephrology also consulted to continue with his scheduled hemodialysis sessions. History revealed that the patient had a diagnosis of asthma long back but he did not use his inhalers much. He was also prescribed BiPAP/CPAP? And diagnosis of sleep apnea was there but he never used the machine since he did not like it and returned it. Based on the patient presentation of shortness of breath and pneumonia and clinical examination suggestive of asthma exacerbation with wheezes and crackles, he was provided with antibiotic therapy with ceftriaxone and azithromycin with significant improvement and short course of steroids. ID was also consulted since there was an ambiguity about patient ceftriaxone that has been continued since his last admission and discharge in the start week of the month and was supposedly to stop which continued however could not find any reason of it. Patient significantly improved during his hospital stay and the d ischarge plan was made yesterday but only the question of 2 g ceftriaxone which was continued since last admission was needed to be confirmed with ID. And later on confirmed which was not for continuation. He was also given gabapentin for his shooting pain in the interscapular region which is more of a neuropathic pain since on clinical examination it was severe scoliosis and spine deformity. He did not complain of any paresthesias or motor deficits of the upper extremities. Patient had his dialysis today. The family was informed about his management course and appreciated the team management. He was today for discharge as planned yesterday, however I tried 2-3 times to see the patient before discharge as vitals and labs were reviewed which were significantly improved and better, but patient was in the dialysis session and later on was discharged. Therefore I could not see him. I called the son afterwards and ask about the patient who said that he had only mild nausea but settled down with ondansetron that was provided as needed and he is doing well. He also informed that gabapentin did not go through the fall therefore I prescribed again and make sure it is in the discharge medications. I spoke to the son and informed him that he can contact me for further queries and concerns and inform me about the patient overall health tomorrow to make sure he is doing well and also about gabapentin if he is able to get for his father. He was thankful for all the care provided through the medical team and through the hospital. Patient was provided with medications that were were reconciled after confirmation and according to patient comorbidities and appropriate follow-ups and referrals were provided at the time of discharge. patient understanding/establishing the stability of the current condition was considered during discharge with all the risk and benefits thoroughly explained. Patient condition has been discussed at length with the patient/family, I have independently reviewed the chart labs imaging/diagnostics/EKG. the goals of care and code status with the patient/family/NOK/legal fuels sales representative, and documented accordingly. The management has been done according to the current clinical condition with respect to patient goals of care and based on recommendations/guidelines. The patient/family has been informed about the current condition and further p amado of care. Agreed with the plan of care and understood without any language barrier. Every effort was made to ensure accuracy of vp product marketing. Any obvious errors or omissions should be clarified with the author of the document. Physical Exam Narrative: Patient vitals and diagnostics were reviewed I was unable to see the patient since she was in the dialysis session and I tried to see him 2-3 times and later on was discharged. I was unable to examine him but made sure that the patient vitals and diagnosis are well and addressed the patient's family concerns Discharge Data Studies Completed and Pending Completed Studies During Hospitalization Category Date Time Status CT head wo con* [id number] Routine Cat Scan 09/25/25 17:36 Completed XR chest 1V portable [id number] Stat Exams 09/25/25 09:28 Completed Pending at discharge Category Date Time Status Blood Culture Stat Lab 09/25/25 09:51 Results Sputum Culture and Gram Stain Stat Lab 09/27/25 07:45 Results Radiology Impressions Chest X-Ray 09/25/25 09:28 Impression: 1. Bilateral pleural-based of opacities with decrease in left opacity. 2. Cardiomegaly and atherosclerosis.. Head CT 09/25/25 17:36 IMPRESSION: 1. Atrophy, chronic ischemic changes, old bilateral cerebellar infarcts without acute appearing intracranial abnormality. 2. Vascular calcification. 3. Cerumen within the right external auditory canal. Laboratory Results WBC 3.26 10^3/uL (3.29-11.43) L 09/27/25 05:14 RBC 2.87 10^6/uL (3.85-5.65) L 09/27/25 05:14 Hgb 8.90 g/dL (11.27-16.99) L 09/27/25 05:14 Hct 28.6 % (37-53) L 09/27/25 05:14 MCV 99.7 fl (82-101) 09/27/25 05:14 MCH 31.0 pg (27-33) 09/27/25 05:14 MCHC 31.1 g/dL (30-55) 09/27/25 05:14 RDW 15.8 % (12.1-15.1) H 09/27/25 05:14 Plt Count 83 10^3/cmm (157-399) L 09/27/25 05:14 MPV 10.7 fL (7.4-10.4) H 09/27/25 05:14 Neut % (Auto) 53.7 % 09/27/25 05:14 Lymph % (Auto) 31.0 % 09/27/25 05:14 [place] % (Auto) 6.7 % 09/27/25 05:14 Eos % (Auto) 8.0 % 09/27/25 05:14 Baso % (Auto) 0.6 % 09/27/25 05:14 Neut # (Auto) 1.75 10^3/uL (1.8-7.7) L 09/27/25 05:14 Lymph # (Auto) 1.0 10^3/uL (0.8-4.8) 09/27/25 05:14 [place] # (Auto) 0.2 10^3/uL (0.2-0.9) 09/27/25 05:14 Eos # (Auto) 0.3 10^3/uL (0.0-0.8) 09/27/25 05:14 Baso # (Auto) 0.0 10^3/uL (0.0-0.1) 09/27/25 05:14 Nucleated RBC % (auto) 0 % 09/27/25 05:14 Nucleated RBCs # 0.0 /100WBC 09/27/25 05:14 Specimen Type Arterial 09/25/25 09:39 Sample Site Radial, left 09/25/25 09:39 ABG pH 7.44 (7.35-7.45) 09/25/25 09:39 ABG pCO2 35.5 mmHg (35-45) 09/25/25 09:39 ABG pO2 51.4 mmHg (80.0-100.0) L 09/25/25 09:39 ABG PO2/FiO2 Ratio 244 09/25/25 09:39 ABG HCO3 24.0 mmol/L (22-26) 09/25/25 09:39 ABG O2 Saturation 88.4 09/25/25 09:39 ABG Base Excess 0.1 mmol/L (-2.0-2.0) 09/25/25 09:39 Leander Test Pos 09/25/25 09:39 A-a O2 Gradient 7.2 mmHg (5-10) 09/25/25 09:39 Hematocrit 33.4 % (42-52) L 09/25/25 09:39 Hgb O2 Saturation 86.4 % (95-100) L 09/25/25 09:39 Carboxyhemoglobin 1.4 %THgb (0.4-20.1) 09/25/25 09:39 Methemoglobin 0.9 % (0.4-1.5) 09/25/25 09:39 Total Hemoglobin 10.9 g/dL (14-18) L 09/25/25 09:39 Sodium 137.0 mmol/L (131-143) 09/25/25 09:39 Potassium 4.3 mmol/L (3.5-5.0) 09/25/25 09:39 Glucose 88.0 mg/dL (70-115) 09/25/25 09:39 Ionized Calcium 1.2 mmol/L (1.1-1.4) 09/25/25 09:39 O2 Delivery Device Room air 09/25/25 09:39 FiO2 21.0 % 09/25/25 09:39 Manufacturing Plant Manager ID [place] 09/25/25 09:39 Sodium 135 mmol/L (136-145) L 09/27/25 05:14 Potassium 4.2 mmol/L (3.5-5.1) 09/27/25 05:14 Chloride 100 mmol/L (98-107) 09/27/25 05:14 Carbon Dioxide 23 mmol/L (22-29) 09/27/25 05:14 Anion Gap 16.2 (5-19) 09/27/25 05:14 BUN 21 mg/dL (8-23) 09/27/25 05:14 Creatinine 5.9 mg/dL (0.7-1.2) H* 09/27/25 05:14 GFR Calculation Not Reportable 09/27/25 05:14 Glucose 105 mg/dL (65-115) 09/27/25 05:14 Calculated Osmolality 283 mOsm/kg (285-295) L 09/27/25 05:14 Lactic Acid 2.1 mmol/L (0.5-2.2) 09/25/25 13:37 Lactic Acid (Sepsis) 1.7 mmol/L (0.5-2.2) 09/25/25 16:30 Calcium 7.7 mg/dL (8.5-10.5) L 09/27/25 05:14 Total Bilirubin 0.2 mg/dL (0.15-1.2) 09/27/25 05:14 AST 14 U/L (0-40) 09/27/25 05:14 ALT < 5 U/L (0-41) 09/27/25 05:14 Alkaline Phosphatase 88 U/L (40-130) 09/27/25 05:14 Troponin T Baseline 223 ng/L (0-15) H* 09/25/25 09:44 Troponin T 60 Minute 212.4 ng/L (0-15) H 09/25/25 10:54 Delta Troponin T -10.6 ABS# (0-10) L 09/25/25 10:54 Troponin T Hi Sens 6Hr 201.2 ng/L (0-15) H 09/25/25 15:44 Troponin T Hi Sens 6Hr Delta -21.8 ng/L (0-12) L 09/25/25 15:44 C-Reactive Protein 128.7 mg/L (0.0-4.9) H 09/25/25 09:44 NT-Pro-B Natriuret Pep 66693 pg/mL (0-450) H 09/25/25 09:44 Total Protein 5.1 g/dL (6.6-8.7) L 09/27/25 05:14 Albumin 3.0 g/dL (3.5-5.2) L 09/27/25 05:14 Globulin 2.1 g/dL (1.3-4.6) 09/27/25 05:14 Procalcitonin 1.09 ng/mL (0-0.5) H 09/25/25 09:44 Nasal MRSA (PCR) Not detected (Negative) 09/25/25 18:29 Vancomycin Trough < 0.4 ug/mL (10-15) L 09/26/25 17:01 Adenovirus (PCR) Not detected (NOT DETECT) 09/25/25 15:12 C. pneumoniae DNA (PCR) Not detected (NOT DETECT) 09/25/25 15:12 Coronavirus 229E (PCR) Not detected (NOT DETECT) 09/25/25 15:12 Human Metapneumovir PCR Not detected (NOT DETECT) 09/25/25 15:12 Influenza A (H1) PCR Not detected (NOT DETECT) 09/25/25 15:12 Influenza A (PCR) Negative (Negative) 09/25/25 09:44 Influ A (H1/09) PCR Not detected (NOT DETECT) 09/25/25 15:12 Influenza A (H3) PCR Not detected (NOT DETECT) 09/25/25 15:12 Influenza Type A (PCR) Not detected (NOT DETECT) 09/25/25 15:12 Influenza Type B (PCR) Not detected (NOT DETECT) 09/25/25 15:12 M. pneumoniae (PCR) Not detected (NOT DETECT) 09/25/25 15:12 Parainfluenza 1 (PCR) Not detected (NOT DETECT) 09/25/25 15:12 Parainfluenza 2 (PCR) Not detected (NOT DETECT) 09/25/25 15:12 Parainfluenza 3 (PCR) Not detected (NOT DETECT) 09/25/25 15:12 Parainfluenza 4 (PCR) Not detected (NOT DETECT) 09/25/25 15:12 RSV (PCR) Negative (Negative) 09/25/25 09:44 RSV Type A (PCR) Not detected (NOT DETECT) 09/25/25 15:12 RSV Type B (PCR) Not detected (NOT DETECT) 09/25/25 15:12 Entero/Rhino (PCR) Detected (NOT DETECT) A 09/25/25 15:12 SARS-CoV-2 (PCR) Not detected (NOT DETECT) 09/25/25 15:12 Vitals Last Vital Signs Temp 97.7 F 09/27/25 15:59 Pulse 71 09/27/25 15:59 Resp 17 09/27/25 15:59 BP 132/64 09/27/25 15:59 Pulse Ox 94 09/27/25 15:59 O2 Del Method Nasal Cannula 09/27/25 15:59 O2 Flow Rate 2 09/27/25 15:59 Discharge Plan Discharge Patient Disposition: Home Condition: Stable Prescriptions: New prednisone 20 mg Tablet 40 mg PO DAILY 5 Days Qty: 10 0RF levofloxacin 500 mg tablet 500 mg PO Q48H 6 Days Qty: 3 0RF budesonide-formoterol [Symbicort] 80-4.5 mcg/actuation HFA aerosol inhaler 2 inh inhalation BID Qty: 10.2 0RF ipratropium-albuterol 0.5 mg-3 mg(2.5 mg base)/3 mL solution for nebulization 3 ml inhalation Q4H PRN (Reason: shortness of breath) Qty: 180 0RF gabapentin 100 mg capsule 100 mg PO BID Qty: 60 0RF Continued levothyroxine [Levo-T] 125 mcg tablet 125 mcg PO DAILY albuterol sulfate 90 mcg/actuation HFA aerosol inhaler 1 puff inhalation QID PRN (Reason: Shortness Of Breath) famotidine [Acid Vulnerability Researcher (famotidine)] 20 mg tablet 20 mg PO BID cyclophosphamide 50 mg capsule 600 mg PO DAILY Qty: 60 1RF Rx Instructions: Take 600 mg orally during or after meal in the morning. Take weekly on days 1,8,15,22 of 28 day cycle. fludrocortisone 0.1 mg Tablet 0.1 mg PO DAILY Qty: 30 0RF cyanocobalamin (vitamin B-12) 100 mcg tablet 1,000 mcg PO DAILY 10 Days Qty: 0 0RF dexamethasone 4 mg tablet See Rx Instructions .ROUTE .COMPLEX Rx Instructions: TAKE 10 TABLETS BY MOUTH once on DAYS 1, 8, 15, AND 22 of each cycle. ferrous sulfate 325 mg (65 mg iron) Tablet 325 mg PO DAILY PreserVision AREDS-2 250-90-40-1 mg Capsule 1 tab PO BID polyethylene glycol 3350 [Miralax] 17 gram/dose powder 17 g PO DAILY PRN (Reason: Constipation) diphenhydramine HCl [Benadryl] 25 mg Capsule 25 mg PO TID PRN (Reason: Allergic Reaction) ondansetron 4 mg tablet,disintegrating 4 mg PO Q6H PRN (Reason: nausea and vomiting) Qty: 14 0RF donepezil [Aricept] 10 mg tablet 10 mg PO DAILY Qty: 30 0RF trazodone 50 mg tablet 50 mg PO .qhs PRN (Reason: insomnia) Qty: 14 0RF midodrine 5 mg Tablet 5 mg PO TID Qty: 30 0RF Rx Instructions: Hold for systolic blood pressure more than 110 mmHg hydrocortisone 10 mg tablet 0.5 mg PO TID acetaminophen [Tylenol] 325 mg Tablet 650 mg PO QID PRN (Reason: Fever Or Pain) Patient Comments: Manager Air OK for DC: Infectious Disease Discharge Order = DC NOW: Discharge Order (Routine); Ordered 09/27/25 Ordered By: Lynda Allen Other Ambulatory Orders: DME: Nebulizer with Neb Kit (Order) Location: None Selected Ordered By: Lynda Allen DME: Oxygen (Order) Location: None Selected Ordered By: Lynda Allen Referrals: Naina Hernández MD [Physician, Pulmonology] - 2 weeks Referral Note: for outpatient sleep studies Patient has history of sleep apnea and used to be on CPAP versus BiPAP? It was a years ago the patient did not The machine and returned it. Came as a case of shortness of breath and/or wheezing, past history of asthma noncompliant to inhalers, postdischarge follow-up Tania Barton MD [Hospitalist, Hospitalist] - 1 month Referral Note: ID follow up post discharge We have notified your physician's clinic of the need for a follow-up appointment to be scheduled. If you have not heard from them within the next 2 business days, please call them directly. Cristian Roman MD [Primary Care Provider, [facility]] Referral Note: We have notified your physician's clinic of the need for a follow-up appointment to be scheduled. If you have not heard from them within the next 2 business days, please call them directly. Discharge Diet: Advance as tolerated and Cardiac Discharge Activity: Resume usual activity and Limit activity as instructed Patient Instructions: Prednisone (By mouth), Levofloxacin (By mouth), Ipratropium/Albuterol (By breathing), Budesonide/Formoterol (By breathing), Viral Pneumonia (DC), Opioid Safety, Pneumonia Stoplight, Patient Portal & Jesika Instructions Discharge Attestations Time Spent in Discharge Care*: greater than 30 min Specific Discharge Activities: educating patient, educating and/or supporting family/caregiver, discussing with pcp/other providers, discussing with case advocate/social workers/dc planners, documenting/other paperwork and evaluating patient/reviewing data Status at Discharge: Cognitive status at discharge: cognitively intact , Behavioral status at discharge: cooperative , Functional status at discharge: other assisted ambulation , Overall status at discharge: patient is back to baseline Quality Metrics Clinical Quality Measures [ No reported AMI, CVA or VTE this stay] Coding Level of Care Code 38213 Diagnoses End stage renal disease on dialysis N18.6; Z99.2
--- NOTE | 2025-10-01 00:35 | PM.MISC ---
Miscellaneous Note Purpose of Documentation: Update to care Note: Patient discharged before could be seen. On review he has finished the complete course of IV ceftriaxone which can be discontinued on discharge. Discussed with the hospitalist on file. Follow-up at ID clinic on October 31, 2025. Plan communicated with patient's outpatient dialysis center.
== END 2025-09-27 17:35 | disposition home or self-care (01) | DRG 189 ==
LOC: ER 12:27 → ICU 15:12 → MEDSURG 09-26 22:53
PROVIDERS: Admitting Provider Student in an Organized Health Care Education/Training Program; Emergency Provider Emergency Medicine; PCP Family Medicine; Visit Provider Student in an Organized Health Care Education/Training Program
DX: J96.01 Acute respiratory failure with hypoxia (principal); N18.6 End stage renal disease; G93.41 Metabolic encephalopathy; C90.00 Multiple myeloma not having achieved remission; E27.40 Unspecified adrenocortical insufficiency; J45.901 Unspecified asthma with (acute) exacerbation; C79.51 Secondary malignant neoplasm of bone; Z99.2 Dependence on renal dialysis; B34.1 Enterovirus infection, unspecified; Z87.01 Personal history of pneumonia (recurrent); Z79.51 Long term (current) use of inhaled steroids; K21.9 Gastro-esophageal reflux disease without esophagitis; D64.9 Anemia, unspecified
CPT/HCPCS: 36415; 36600; 70450; 71045; 80051; 80053; 80202; 82330; 82805; 83605; 83880; 84145; 84484; 85025; 86140; 87040; 87070; 87205; 87486; 87581; 87633; 87637; 90935; 92610; 93005; 94640; 94760; 96365; 96367; 96372; 96375; 99285; J0456; J0696; J1644; J1956; J2020; J2185; J2270; J2405; J2470; J3373; J7040; J7050; J7120; J7512; J7614; J7626; J7644; J9999; P9047; Q3014